=== PATIENT | female | born 1935 | race Caucasian/White ===

== ENCOUNTER 2017-11-03 07:23 | Emergency (ER) | payer MEDICARE, BC ==
--- NOTE | 2017-11-03 08:04 | UC ---
Lower Extremity/Ankle HPI - HPI Summary HPI Summary: Fall/trip over 's foot this morning. She landed on the right knee and has a deep wound. She is not able to bear wt very well. She is a diabetic on chronic steroids due to adrenal insufficiency. - History of Current Complaint Chief Complaint: UCLaceration Stated Complaint: FALL RIGHT KNEE LAC Time Seen by Provider: 11/03/17 07:37 Hx Obtained From: Patient, Family/[employer] ?: No Onset/Duration: Sudden Onset, Lasting Hours Severity Initially: Severe Severity Currently: Severe Pain Intensity: 5 Aggravating Factor(s): Standing, Ambulation Alleviating Factor(s): Rest, Elevation Able to Bear Weight: No - Allergies/Home Medications Allergies/Adverse Reactions: Allergies Allergy/AdvReac Type Severity Reaction Status Date / Time cetirizine [From Zyrtec] Allergy Swelling Verified 11/03/17 07:41 Of Face,Lips,& Throat levofloxacin [From Levaquin] Allergy Unknown Verified 11/03/17 07:41 Reaction Details Sulfa (Sulfonamide Allergy See Comment Verified 11/03/17 07:37 Antibiotics) tapentadol [From Nucynta] Allergy Unknown Verified 11/03/17 07:41 Reaction Details terfenadine [From Seldane] Allergy Unknown Verified 11/03/17 07:41 Reaction Details Home Medications: Home Medications Acetaminophen [Tylenol Arthritis] 650 mg PO DAILY PRN 11/03/17 [History Confirmed 11/03/17] Ascorbic Acid TAB* [Vitamin C TAB*] 500 mg PO DAILY 11/03/17 [History Confirmed 11/03/17] Atorvastatin* [Lipitor*] 10 mg PO DAILY 11/03/17 [History Confirmed 11/03/17] Calcium Carbonate [Calcium] 500 mg PO BID 11/03/17 [History Confirmed 11/03/17] Cholecalciferol TAB* [Vitamin D TAB*] 1,000 unit PO DAILY 11/03/17 [History Confirmed 11/03/17] Diltiazem XR EXTEND Releas(NF) [Cartia XR (NF)] 360 mg PO DAILY 11/03/17 [ History Confirmed 11/03/17] Enalapril TAB* [Vasotec TAB*] 20 mg PO BID 11/03/17 [History Confirmed 11/03/17] Ferrous Fumarate/Ascorbic Acid [Meliza-Sequels] 50 mg PO DAILY 11/03/17 [History Confirmed 11/03/17] Fexofenadine (NF) [Wendy 180 (NF)] 180 mg PO DAILY 11/03/17 [History Confirmed 11/03/17] Furosemide TAB* [Lasix TAB*] 40 mg PO BID 11/03/17 [History Confirmed 11/03/17] Hydrocortisone 10 mg PO DAILY 11/03/17 [History Confirmed 11/03/17] Insulin Detemir (NF) [Levemir (NF)] 18 unit SUBCUT DAILY 11/03/17 [History Confirmed 11/03/17] Mometasone/Formoter 200/5 MDI* [Dulera 200/5 MDI*] 1 puff INH BID 11/03/17 [ History Confirmed 11/03/17] Montelukast Sodium TAB* [Singulair TAB*] 10 mg PO DAILY 11/03/17 [History Confirmed 11/03/17] Multivitamin with Iron [Daily Multivitamin with Iron] 1 each PO DAILY 11/03/17 [ History Confirmed 11/03/17] [place]-3S/Dha/Epa/Fish Oil [Fish Oil 1,200 mg Softgel] 2 each PO DAILY 11/03/17 [ History Confirmed 11/03/17] Repaglinide TAB* [Prandin TAB*] 1 mg PO AC 11/03/17 [History Confirmed 11/03/17] Tiotropium CAP.INH* [Spiriva CAP.INH*] 1 cap.inh INH DAILY 11/03/17 [History Confirmed 11/03/17] cloNIDine TAB* [Catapres 0.1 MG TAB*] 0.2 mg PO TID 11/03/17 [History Confirmed 11/03/17] PMH/Surg Hx/FS Hx/Imm Hx Previously Healthy: No Endocrine History: Diabetes - Surgical History Surgical History: Yes Surgery Procedure, Year, and Place: back surgery. cataract. arthro knee. lumpectomy. carpal tunnel. tonsil/adenoids. gall bladder. lung biopsy. hammer toe and bone spur - Family History Known Family History: Positive: Other - no related family history for this laceration. - Social History Lives: With Family Alcohol Use: None Substance Use Type: None Smoking Status (MU): Never Smoked Tobacco Review of Systems Skin: Other - bleeding/laceration. Musculoskeletal: Arthralgia Is Patient Immunocompromised?: Yes All Other Systems Reviewed And Are Negative: Yes Physical Exam Triage Information Reviewed: Yes Appearance: Pain Distress, Obese Vital Signs: Initial Vital Signs Temp 98.4 F 11/03/17 07:34 Pulse 115 11/03/17 07:34 Resp 24 11/03/17 07:34 BP 180/92 11/03/17 07:34 Pulse Ox 98 11/03/17 07:34 Vital Signs Reviewed: Yes Eye Exam: Normal Eyes: Positive: Conjunctiva Clear ENT: Positive: Normal ENT inspection Neck: Positive: Supple, Nontender, No Lymphadenopathy Respiratory: Positive: Lungs clear, Normal breath sounds, No respiratory distress, No accessory muscle use. Negative: Respiratory distress, Decreased breath sounds, Accessory muscle use, Crackles, Rhonchi, Stridor Cardiovascular: Positive: RRR, No Murmur, Pulses Normal, Brisk Capillary Refill Abdomen Description: Positive: Soft. Negative: Distended, Guarding Musculoskeletal Exam: Other - she can flex right hip and lift off the bed. She has large hematoma, bruising and swelling over the iknee and proximal lower leg. There is a large laceration about 10cm. There is extensive bleeding and hematoma is evacuated with pressure and simple probing using sterile technique. Dispite milking the hematoma and bleeding and removing clots, there continues to be bleeding. about 250-500cc of blood is evacuated.There is obvious underlying facial lacerations as well. Neurological: Positive: Alert, Muscle Tone Normal. Negative: Fatigued Psychological: Positive: Normal Response To Family, Age Appropriate Behavior Skin: Positive: Other - see above. large laceration. Lower Extremity Course/Dx - Course Course Of Treatment: D/w Dr. Sotelo from [facility] who states that they have orthopedics and accept patient. This is a large deep laceration in a complicated older patient that is diabetic and on chornic hydrocortisone. There is continuous bleeding that I cannot visualize but I do appreciate deep tissue damage and lacerations of the facia as well. Underlying fracture may also be the source of this bleeding. Regardless, she may need more extensive closure and deep irrigation to at least prevent serious infection. - Differential Dx/Diagnosis Provider Diagnoses: complex laceration. facial tears. large hematoma. complex bleeding Discharge - Sign-Out/Discharge Documenting (check all that apply): Discharge - Discharge Plan Condition: Guarded Disposition: [facility] CARE FAC Referrals: Donte Mckinney MD [Primary Care Provider] - - Billing Disposition and Condition Condition: GUARDED Disposition: EMTALA
[2017-11-03] MEDS ORDERED: NS 0.9% 1000 ML* 1,000 ML IV ONE (08:13)
[2017-11-03 08:57] VITALS: BP 140/82
== END 2017-11-03 08:25 | disposition short-term general hospital (02) ==
LOC: UCCORT 07:23
DX: Z79.84 Long term (current) use of oral hypoglycemic drugs (principal); S81.011A Laceration without foreign body, right knee, initial encounter; S01.81XA Laceration without foreign body of other part of head, initial encounter; W01.0XXA Fall on same level from slipping, tripping and stumbling without subsequent striking against object, initial encounter; Y93.9 Activity, unspecified; Y92.009 Unspecified place in unspecified non-institutional (private) residence as the place of occurrence of the external cause; E11.9 Type 2 diabetes mellitus without complications; Z79.4 Long term (current) use of insulin; Z88.1 Allergy status to other antibiotic agents; Z88.5 Allergy status to narcotic agent; Z88.2 Allergy status to sulfonamides; Z88.8 Allergy status to other drugs, medicaments and biological substances
CPT/HCPCS: 99214; G0463

== ENCOUNTER 2019-07-13 10:57 | Emergency (ER) | payer MEDICARE, BC ==
--- OUTSIDE RECORDS SUMMARY | 2019-07-13 12:30 | XMS REPORT | Continuity of Care Document ---
:1935 External Reference #:[id number] Author Name Donte Mckinney (transmitted by agent of provider Arely Jefferson) Address [address] [place] [address] Problems Active Problems Provider Date Type 2 diabetes mellitus Donte Mckinney Onset: 10/05/2005 Social History Type Date Description Comments Sex Unknown Tobacco Use Start: Unknown Never Smoked Cigarettes ETOH Use Denies alcohol use Recreational Drug Use Never Used Drugs Tobacco Use Start: Unknown Patient has never smoked Allergies, Adverse Reactions, Alerts Active Allergies Reaction Severity Comments Date Seldene 06/01/2005 Levaquin 06/01/2005 Zyrtec 06/01/2005 sulfa NEPHRITIS Severe 02/05/2015 Medications Active Medications SIG Qnty Indications Ordering Date Provider Accu-Chek Soft-Clix test 4 times daily Donte Mckinney 02/14/2019 Lancets Miacalcin spray 1 spray 6ml Donte Mckinney 12/21/2018 200Unit/ML alternating nares Solution once daily Hydrocortisone 1 1/2 by mouth 225tabs E27.49 Donte Mckinney 01/03/2018 20mg morning every Tablets morning 1 by mouth every afternoon Humalog Kwikpen 5 units before 3units Donte Mckinney 01/03/2018 meals tapering if 100Unit/ML Solution ama sliding scale, Pen-Inject 151-200 1unit 201-250 2 units, 251-300 3units, 301-350 4 units, 351-400 Amlodipine Besylate 1 by mouth every 90tabs I11.9 Donte Mckinney 11/24/2017 day 10mg Tablets Triamcinolone 1 spray each 16.500gm Donte Mckinney 11/08/2017 Acetonide nostril twice 55mcg/Act daily Aerosol Pen Wesley 1/2" dx e11.65 as 100units Donte Mckinney 06/29/2017 29G X directed 3x a day 12mm Misc injections Diabetic Shoes With as directed hx Donte Mckinney 01/04/2017 Inserts foot surgeries edema feet and ankles. calluses on feet. Accu-Chek Beth Test Fout Times 1units Donte Mckinney 09/15/2016 Device Daily DX E11.65 Accu-Chek Beth Plus dx e11.65 test 4 300units Donte Mckinney 09/15/2016 times daily Strips Syrings 16 Lenght 14 units in in the 100units Alex Mckinneyl 07/07/2016 By 31 Gauge morning dx e11.65 Multivitamin Women Alex Mckinneyl 05/05/2016 50+ 50+ Tablets Calcium 500 + D Alex Mckinneyl 05/05/2016 309-261tt-Kqns Tablets Meliza-Sequels Alex Mckinneyl 05/05/2016 65-25mg Tablets ER Vitamin D3 High 1 by mouth every 90caps Alex Mckinneyl 05/05/2016 Potency day 1000Unit Capsules Vitamin C Plus Alex Mckinneyl 05/05/2016 Echinacea 500-100mg Tablets Wendy Allergy 1 PO qd prn 90tabs Faye Donte 05/05/2016 180mg Tablets Clonidine HCL 1 by mouth three 270tabs Alex Mckinneyl 10/09/2015 0.2mg times a day Tablets Levemir Flextouch taking 13 units in 3Mo Donte Mckinney 05/14/2015 the am and 16 100Unit/ML Solution units in the pm Pen-Inject Vasotec 1 by mouth twice a 180tabs Donte Mckinney 04/09/2015 20mg Tablets day Knee High Support as directed dx 1units Donte Mckinney 03/19/2015 Hose 250.00 459.81 20-30 compression Walker with wheels and [facility] Donte Mckinney 02/14/2013 seat dx 781.2 Tylenol 8 Hour as needed 100tabs M15.0 Donte Mckinney 10/11/2012 650mg Tablets ER Fish Oil bid Donte Mckinney 11/25/[address] [place] 1 by mouth every 90tabs Donte Mckinney 06/01/2005 10mg Tablets day Lipitor 1/2 PO qd 90tabs Donte Mckinney 06/01/2005 20mg Tablets Dulera 1 puff twice a day 3units Pradeeptaylor Donte 200-5mcg/Act Aerosol Azithromycin 1 tab on Mon, Wed Faye Donte 250mg and Fri Tablets Spiriva Respimat 2 puff daily 3units J44.9 Pradeeptaylor Donte 2.5mcg/Act Aerosol Torsemide in by mouth daily 90tabs Faye Donte 100mg Tablets Levalbuterol HCL four times a day 100units J20.9 Pradeeptaylor Donte dx pneumonia 0.63mg/3ML Nebulizer History Medications Amoxicillin/Clavulanate 1 by mouth 21tabs Kameron44.1 Donte Mckinney 05/15/2019 - Potassium three times a 06/12/2019 500-125mg Tablets day Albuterol Sulfate as directed up 30ml Kameron44.1 Donte Mckinney 05/15/2019 - 1.25mg/3ML Nebulizer to four times a 05/15/2019 day Albuterol Sulfate Inhale The 75units 0.9 Faye Donte 05/15/2019 - (2.5mg/3ML) 0.083% Contents Of One 06/20/2019 Nebulizer Vial Via Nebulizer Every 4 Hours as Needed Medications Administered in Office Medication SIG Qnty Indications Ordering Provider Date B-12 Injection Donte Mckinney 02/21/2019 Injection B-12 Injection Nurse 02/21/2019 Injection H1N1 Administration-Use Donte Mckinney 05/28/2009 Injection PPD Injection Donte Mckinney 06/01/2005 PPD Injection Donte Mckinney 12/17/2004 Immunizations CPT Code Status Date Vaccine Lot # [id number] Given 05/16/2019 Pneumovax Polyvalent Inj Im Q2035 Given 03/21/2019 Influenza Virus (Quadrivalent)Splitvirus 3 Years Of Age And Older Q2035 Given 03/21/2019 Influenza Virus (Quadrivalent)Splitvirus 3 [id number] Years Of Age And Older 82312 Given 03/21/2019 Influenza Virus Vaccine, Quadrivalent, Split, Preservative Free Q2035 Given 04/11/2018 Influenza Virus (Quadrivalent)Splitvirus 3 [id number] Years Of Age And Older Q2036 Given 03/23/2017 Flulaval Q2035 Given 03/23/2017 Influenza Virus (Quadrivalent)Splitvirus 3 Years Of Age And Older Q2037 Given 04/07/2016 Influenza Vaccine (Fluvirin) 3 Years Of Age Or [id number] Older 86091 Given 05/21/2015 Pneumococcal Conjugate Vaccine 13 Valent For [id number] Intramuscular Use Q2035 Given 03/19/2015 Influenza Virus (Quadrivalent)Splitvirus 3 [id number] Years Of Age And Older Q2037 Given 03/13/2014 Influenza Vaccine (Fluvirin) 3 Years Of Age Or Older Q2038 Given 04/04/2013 Influenza Vaccine (Fluzone) Administered Age 3 And Older 31419 Given 04/04/2013 Influenza Vaccine [id number] Q2037 Given 04/26/2012 Influenza Vaccine (Fluvirin) 3 Years Of Age Or [id number] Older Q2036 Given 04/15/2011 Flulaval [id number] 40347 Given 06/30/2010 Zostavax [id number] 26854 Given 04/15/2010 Influenza Vaccine [id number] 78954 Given 12/13/2009 Pneumovax Polyvalent Inj Im [id number] 73683 Given 04/23/2009 Influenza Vaccine 24780 Given 04/23/2009 Influenza Vaccine [id number] 02242 Given 04/17/2008 Influenza Vaccine [id number] 68271 Given 04/12/2007 Influenza Vaccine [id number] 68813 Given 04/16/2006 Influenza Vaccine 47792 Given 04/16/2006 Influenza Vaccine [id number] 63074 Given 05/05/2005 Influenza Vaccine [id number] 82922 Given 05/05/2005 Influenza Vaccine 75446 Given 01/11/2005 Tetanus And Diptheria Toxiods [id number] 00151 Given 12/30/2004 [place] [address] Given 07/19/1991 Tetanus And Diptheria Toxiods Vital Signs Date Vital Result Comment 06/20/2019 11:18am BP Systolic 185 mmHg BP Diastolic 90 mmHg Heart Rate 128 /min Respiratory Rate 22 /min Height 58 inches 4'10" O2 % BldC Oximetry 90 % 06/12/2019 11:54am BP Systolic 148 mmHg BP Diastolic 90 mmHg Heart Rate 95 /min Respiratory Rate 22 /min Weight 180.00 lb Results Test Acquired Date Facility Test Result H/L Range Note General Health 05/15/2019 [facility] TSH 0.30 mIU/L Low 0.40-4.50 1 Panel [facility] [address] [place], [place] [id number] [phone] T4, Free 1.4 ng/dL Normal 0.8-1.8 CBC (Includes 05/15/2019 [facility] White 14.9 High 3.8-10.8 Diff/PLT) [address] Blood Cell Thousand/[place] [address] Count [phone] Red Blood Cell Count 3.48 Million/uL Low 3.80-5.10 Hemoglobin 10.3 g/dL Low 11.7-15.5 Hematocrit 30.4 % Low 35.0-45.0 MCV 87.4 fL Normal 80.0-100.0 MCH 29.6 pg Normal 27.0-33.0 MCHC 33.9 g/dL Normal 32.0-36.0 RDW 14.2 % Normal 11.0-15.0 Platelet Count 390 Thousand/uL Normal 140-400 MPV 9.2 fL Normal 7.5-12.5 Absolute Neutrophils 33103 cells/uL High 2027-9347 Absolute Lymphocytes 745 cells/uL Low 850-3900 Absolute Monocytes 313 cells/uL Normal 200-950 Absolute Eosinophils 0 cells/uL Low 15-500 Absolute Basophils 30 cells/uL Normal 0-200 Neutrophils 92.7 % High 38-80 Lymphocytes 5.0 % Low 15-49 Monocytes 2.1 % Normal 0-13 Eosinophils 0.0 % Normal 0-8 Basophils 0.2 % Normal 0-2 Comprehensive Metabolic 05/15/2019 [facility] Glucose 198 mg/dL High 65-139 2 Panel [address] [place], [place] [id number] [phone] Urea Nitrogen (BUN) 72 mg/dL High 7-25 Creatinine 1.83 mg/dL High 0.60-0.88 3 eGFR Non-Afr. Austrian 25 mL/min/1.73m2 Low > Or = 60 eGFR 29 mL/min/1.73m2 Low > Or = 60 BUN/Creatinine Ratio 39 (calc) High 6-22 Sodium 142 mmol/L Normal 135-146 Potassium 4.2 mmol/L Normal 3.5-5.3 Chloride 104 mmol/L Normal 98-110 Carbon Dioxide 27 mmol/L Normal 20-32 Calcium 8.9 mg/dL Normal 8.6-10.4 Protein, Total 5.6 g/dL Low 6.1-8.1 Albumin 3.2 g/dL Low 3.6-5.1 Globulin 2.4 g/dL(calc) Normal 1.9-3.7 Albumin/Globulin Ratio 1.3 (calc) Normal 1.0-2.5 Bilirubin, Total 0.3 mg/dL Normal 0.2-1.2 Alkaline Phosphatase 91 U/L Normal 33-130 Ast 30 U/L Normal 10-35 Alt 42 U/L High 6-29 Laboratory test 05/15/2019 [facility] Cortisone, Serum 0.8 g/dL 4 finding [address] [place] [address] [phone] Enhanced PDF Report [id number] SEE IMAGE CMP W/GFR 04/11/2019 [facility] Sodium 140 mmol/L 135-146 5 [address] [place], [place] [address] [phone] Potassium 3.7 mmol/L 3.5-5.3 Chloride 102 mmol/L 98-110 Carbon Dioxide 28 mmol/L 20-32 6 Calcium 9.8 mg/dL 8.6-10.4 Alkaline Phosphatase 63 U/L 33-130 Ast 14 U/L 10-35 Alt 23 U/L 6-29 Bilirubin,Total 0.5 mg/dL 0.2-1.2 Glucose 157 mg/dL High 65-99 7 Urea Nitrogen (BUN) 69 mg/dL High 7-25 Creatinine 1.89 mg/dL High 0.60-0.88 8 BUN/Creatinine Ratio 36.3 High 6-22 Protein,Total 6.5 g/dL 6.1-8.1 Albumin 3.9 g/dL 3.6-5.1 Globulin,Calculated 2.6 g/dL 1.9-3.7 A/G Ratio 1.5 1.0-2.5 Egfr Non-Afr. Austrian 24 ML/MIN/1.73M2 Low > Or = 60 Egfr 28 ML/MIN/1.73M2 Low > Or = 60 Sodium 140 mmol/L 135-146 Potassium 3.7 mmol/L 3.5-5.3 Chloride 102 mmol/L 98-110 Carbon Dioxide 28 mmol/L 20-32 9 Calcium 9.8 mg/dL 8.6-10.4 Alkaline Phosphatase 63 U/L 33-130 Ast 14 U/L 10-35 Alt 23 U/L 6-29 Bilirubin,Total 0.5 mg/dL 0.2-1.2 Glucose 157 mg/dL High 65-99 10 Urea Nitrogen (BUN) 69 mg/dL High 7-25 Creatinine 1.89 mg/dL High 0.60-0.88 11 BUN/Creatinine Ratio 36.3 High 6-22 Protein,Total 6.5 g/dL 6.1-8.1 Albumin 3.9 g/dL 3.6-5.1 Globulin,Calculated 2.6 g/dL 1.9-3.7 A/G Ratio 1.5 1.0-2.5 Egfr Non-Afr. Austrian 24 ML/MIN/1.73M2 Low > Or = 60 Egfr 28 ML/MIN/1.73M2 Low > Or = 60 CBC W/ Diff & PLT 04/11/2019 [facility] WBC 11.3 thous/L High 3.8 -10.8 [address] [place] [address] [phone] RBC 4.03 mill/L 3.80-5.10 Hemoglobin 11.6 g/dL Low 11.7-15.5 Hematocrit 35.3 % 35.0-45.0 MCV 87.6 FL 80.0-100.0 MCH 28.8 pg 27.0-33.0 MCHC 32.9 g/dL 32.0-36.0 RDW 14.3 % 11.0-15.0 Platelet Count 406 thous/L High 140-400 MPV 8.7 FL 7.5-12.5 Neutrophils,Absolute 6850 cells/L 8746-1782 Bands,Absolute PENDING Metamyelocytes,Absolute PENDING Myelocytes,Absolute PENDING Promyelocytes,Absolute PENDING Lymphocytes,Absolute 3640 cells/L 850-3900 Monocytes,Absolute 630 cells/L 200-950 Eosinophils,Absolute 60 cells/L 15-500 Basophils,Absolute 60 cells/L 0-200 Blast Cells,Absolute PENDING Nucleated RBC,Absolute PENDING Total Neutrophils,% 61.2 % 40-75 Bands,% PENDING Metamyelocytes,% PENDING Myelocytes,% PENDING Promyelocytes,% PENDING Total Lymphocytes,% 32.2 % 12-47 Reactive Lymphocytes PENDING Monocytes,% 5.6 % 4-12 Eosinophils,% 0.5 % 0-4 Basophils,% 0.5 % 0-1 12 Blasts,% PENDING Nucleated RBC PENDING Comment PENDING WBC 11.3 thous/L High 3.8-10.8 RBC 4.03 mill/L 3.80-5.10 Hemoglobin 11.6 g/dL Low 11.7-15.5 Hematocrit 35.3 % 35.0-45.0 MCV 87.6 FL 80.0-100.0 MCH 28.8 pg 27.0-33.0 MCHC 32.9 g/dL 32.0-36.0 RDW 14.3 % 11.0-15.0 Platelet Count 406 thous/L High 140-400 MPV 8.7 FL 7.5-12.5 Neutrophils,Absolute 6850 cells/L 2271-0305 Lymphocytes,Absolute 3640 cells/L 850-3900 Monocytes,Absolute 630 cells/L 200-950 Eosinophils,Absolute 60 cells/L 15-500 Basophils,Absolute 60 cells/L 0-200 Total Neutrophils,% 61.2 % 40-75 Total Lymphocytes,% 32.2 % 12-47 Monocytes,% 5.6 % 4-12 Eosinophils,% 0.5 % 0-4 Basophils,% 0.5 % 0-1 13 Lipid Panel 04/11/2019 [facility] Cholesterol 173 mg/dL <199 [address] [place] [address] [phone] HDL Cholesterol 56 mg/dL >50 Cholesterol/HDL Ratio 3.1 CALC <5.0 LDL Chol,Calculated 87 mg/dL 0-100 14 Triglycerides 204 mg/dL High <150 15 Non-HDL Cholesterol 116 mg/dL <130 16 Cholesterol 173 mg/dL <199 HDL Cholesterol 56 mg/dL >50 Cholesterol/HDL Ratio 3.1 CALC <5.0 LDL Chol,Calculated 87 mg/dL 0-100 17 Triglycerides 204 mg/dL High <150 18 Non-HDL Cholesterol 116 mg/dL <130 19 Laboratory test finding 04/11/2019 [facility] Cortisol,A.M. PENDING [address] [place], [place] [id number] [phone] Vitamin D,25-Hydroxy,Total,Immunoassay 32 NG/ML 30-100 20 Hemoglobin A1c 6.6 % High 0-5.6 21 TSH & T4,Free 04/11/2019 [facility] TSH 0.31 mIU/L Low 0.40-4.50 22 [address] [place], [place] [id number] [phone] T4,Free 1.4 ng/dL 0.8-1.8 Laboratory test finding 04/11/2019 [facility] TSH 0.31 mIU/L Low 0.40-4.50 23 [address] [place], [place] [address] [phone] T4,Free 1.4 ng/dL 0.8-1.8 Clinical PDF Report [id number] SEE IMAGE Hemoglobin A1c 6.6 % High 0-5.6 24 TSH 0.31 mIU/L Low 0.40-4.50 25 T4,Free 1.4 ng/dL 0.8-1.8 Vitamin D,25-Hydroxy,Total,Immunoassay 32 NG/ML 30-100 26 Cortisol,A.M. 3.5 g/dL Low 27 1 FASTING:NO FASTING: NO 2 Non-fasting reference interval For someone without known diabetes, a glucose value >125 mg/dL indicates that they may have diabetes and this should be confirmed with a follow-up test. 3 For patients >49 years of age, the reference limit for Creatinine is approximately 13% higher for people identified as -Austrian. 4 Reference Range: AM: 1.2-3.5 PM: 0.6-2.8 This test was developed and its analytical performance characteristics have been determined by [facility]. It has not been cleared or approved by FDA. This assay has been validated pursuant to the CLIA regulations and is used for clinical purposes. 5 FASTING 6 Reference range for high altitude clients: 18-30 mmol/L 7 GLUCOSE REFERENCE RANGE BASED ON FASTING SPECIMEN. 8 The upper reference limit for Creatinine is approximately 13% higher for people identified as -Austrian. 9 Reference range for high altitude clients: 18-30 mmol/L 10 GLUCOSE REFERENCE RANGE BASED ON FASTING SPECIMEN. 11 The upper reference limit for Creatinine is approximately 13% higher for people identified as -Austrian. 12 Relative blood cell counts (%) should be compared with absolute cell counts (cells/mcL). Relative counts may not be clinically meaningful if the absolute count of one or more cell type is decreased. Reference ranges for relative cell counts derived from: A Manual of Laboratory and Diagnostics Tests, 9th Ed, [employer] Vance [employer] Huang, 2015. Pediatric Reference Intervals, 7th Ed, [employer], 2011. 13 Relative blood cell counts (%) should be compared with absolute cell counts (cells/mcL). Relative counts may not be clinically meaningful if the absolute count of one or more cell type is decreased. Reference ranges for relative cell counts derived from: A Manual of Laboratory and Diagnostics Tests, 9th Ed, [employer], 2015. Pediatric Reference Intervals, 7th Ed, [employer], 2011. 14 LDL-C is now calculated using the Danny-Stallworth calculation, which is a validated novel method providing better accuracy than the Friedewald equation in the estimation of LDL-C. Danny SS et al.MARIAELENA.2013;310(19):2878-6197 Desirable range <100 mg/dL for primary prevention; <70 mg/dL for patients with CHD or diabetic patients with >or= 2 CHD risk factors. 15 If a non-fasting specimen was collected, consider repeat triglyceride testing on a fasting specimen if clinically indicated. Shakira et al.J of Clin.Lipidol.2015;9:129-169. 16 For patients with diabetes plus 1 major ASCVD risk factor, treating to a non-HDL-C goal of <100 mg/dL (LDL-C of <70 mg/ dL) is considered a therapeutic option. 17 LDL-C is now calculated using the Danny-Stallworth calculation, which is a validated novel method providing better accuracy than the Friedewald equation in the estimation of LDL-C. Danny SS et al.MARIAELENA.2013;310(19):7984-7253 Desirable range <100 mg/dL for primary prevention; <70 mg/dL for patients with CHD or diabetic patients with >or= 2 CHD risk factors. 18 If a non-fasting specimen was collected, consider repeat triglyceride testing on a fasting specimen if clinically indicated. Shakira et al.J of Clin.Lipidol.2015;9:129-169. 19 For patients with diabetes plus 1 major ASCVD risk factor, treating to a non-HDL-C goal of <100 mg/dL (LDL-C of <70 mg/ dL) is considered a therapeutic option. 20 Vitamin D Status 25-OH Vitamin D: Deficiency: <20 ng/mL Insufficiency: 20-29 ng/mL Optimal: > or = 30 ng/mL For 25-OH Vitamin D testing on patients on D2-supplementation and patients for whom quantitation of D2 and D3 fractions is required, the [facility] 25-OH Vit D, (D2,D3),LC/MS/MS is recommended: Order code 73038 (patients >2 yrs). 21 For someone without known diabetes, a hemoglobin A1C value of 6.5% or greater indicates that they may have diabetes and this should be confirmed with a follow-up test. For someone with known diabetes, a value <7% indicates that their diabetes is well controlled and a value greater than or equal to 7% indicates suboptimal control. A1C targets should be individualized based on duration of diabetes, age, comorbid conditions, and other considerations. Currently, no consensus exists for use of hemoglobin A1C for diagnosis of diabetes for children. FOR DIAGNOSTIC PURPOSES: A1C VALUE(% OF TOTAL HEMOGLOBIN) INTERPRETATION < 5.7 CONSISTENT WITH THE ABSENCE OF DIABETES 5.7 - 6.4 CONSISTENT WITH INCREASED RISK OF DIABETES > OR = 6.5 CONSISTENT WITH DIABETES FOR MONITORING PURPOSES (ADA GUIDELINNES): A1C VALUE(% OF TOTAL HEMOGLOBIN) INTERPRETATION < 6.5 ACHIEVES STRINGENT GLYCEMIC GOAL < 7.0 ACHIEVES GENERAL GLYCEMIC GOAL(NON- ADULTS) < 8.0 ACHIEVES LESS STRINGENT GLYCEMIC GOAL 22 REFERENCE RANGES BELOW ARE APPLICABLE TO FEMALES FIRST TRIMESTER - 0.26 - 2.66 mIU/L SECOND TRIMESTER - 0.55 - 2.73 mIU/L THIRD TRIMESTER - 0.43 - 2.91 mIU/L 23 REFERENCE RANGES BELOW ARE APPLICABLE TO FEMALES FIRST TRIMESTER - 0.26 - 2.66 mIU/L SECOND TRIMESTER - 0.55 - 2.73 mIU/L THIRD TRIMESTER - 0.43 - 2.91 mIU/L 24 For someone without known diabetes, a hemoglobin A1C value of 6.5% or greater indicates that they may have diabetes and this should be confirmed with a follow-up test. For someone with known diabetes, a value <7% indicates that their diabetes is well controlled and a value greater than or equal to 7% indicates suboptimal control. A1C targets should be individualized based on duration of diabetes, age, comorbid conditions, and other considerations. Currently, no consensus exists for use of hemoglobin A1C for diagnosis of diabetes for children. FOR DIAGNOSTIC PURPOSES: A1C VALUE(% OF TOTAL HEMOGLOBIN) INTERPRETATION < 5.7 CONSISTENT WITH THE ABSENCE OF DIABETES 5.7 - 6.4 CONSISTENT WITH INCREASED RISK OF DIABETES > OR = 6.5 CONSISTENT WITH DIABETES FOR MONITORING PURPOSES (ADA GUIDELINNES): A1C VALUE(% OF TOTAL HEMOGLOBIN) INTERPRETATION < 6.5 ACHIEVES STRINGENT GLYCEMIC GOAL < 7.0 ACHIEVES GENERAL GLYCEMIC GOAL(NON- ADULTS) < 8.0 ACHIEVES LESS STRINGENT GLYCEMIC GOAL 25 REFERENCE RANGES BELOW ARE APPLICABLE TO FEMALES FIRST TRIMESTER - 0.26 - 2.66 mIU/L SECOND TRIMESTER - 0.55 - 2.73 mIU/L THIRD TRIMESTER - 0.43 - 2.91 mIU/L 26 Vitamin D Status 25-OH Vitamin D: Deficiency: <20 ng/mL Insufficiency: 20-29 ng/mL Optimal: > or = 30 ng/mL For 25-OH Vitamin D testing on patients on D2-supplementation and patients for whom quantitation of D2 and D3 fractions is required, the [facility] 25-OH Vit D, (D2,D3),LC/MS/MS is recommended: Order code 61719 (patients >2 yrs). 27 REFERENCE RANGE AM: 1-3 DAYS OLD: PREMATURE INFANTS (31-35 WEEKS): < OR = 15.0 MCG/DL TERM INFANTS: < OR = 14.0 MCG/DL 4 DAYS-1 MONTH: NOT ESTABLISHED 1 MONTH-11 MONTHS: 3.0-23.0 MCG/DL 1 YEAR-17 YEARS: 3.0-25.0 MCG/DL 18 YEARS OR OLDER: 4.0-22.0 MCG/DL Procedures Date Code Description Status 06/13/2019 69292 Therapeutic,Prophylactic Intramuscular Inj Completed 05/30/2019 38393 Therapeutic,Prophylactic Intramuscular Inj Completed 04/18/2019 74418 Therapeutic,Prophylactic Intramuscular Inj Completed 04/18/2019 97098 Non-Invcorrotid/Comp /Bilat Study Completed 04/17/2019 82319 Echocardiography Completed 04/11/2019 63447 Spirometry Graphic Record/Max Voluntary Vent Completed 04/11/2019 18438 EKG-Tracing & Report Completed 04/10/2019 10521 EKG-Tracing & Report Completed 04/04/2019 83443 Therapeutic,Prophylactic Intramuscular Inj Completed 03/21/2019 96570 Therapeutic,Prophylactic Intramuscular Inj Completed 02/07/2019 62863 Therapeutic,Prophylactic Intramuscular Inj Completed 01/24/2019 45871 Therapeutic,Prophylactic Intramuscular Inj Completed 01/10/2019 26063 Therapeutic,Prophylactic Intramuscular Inj Completed 03/11/2017 [id number] Bone Mineral Density Test Completed 07/22/2015 [id number] Mammogram Completed 05/13/2007 [id number] Colonoscopy Completed Medical Devices Description No Information Available Encounters Type Date Location Provider Dx Diagnosis Office Visit 06/20/2019 11:30a Main Office Donte Mckinney I11.9 Hypertensive heart disease without heart failure E66.09 Other obesity due to excess calories 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 E78.5 Hyperlipidemia, unspecified N18.9 Chronic kidney disease, unspecified E11.65 Type 2 diabetes mellitus with hyperglycemia E03.9 Hypothyroidism, unspecified M15.9 Polyosteoarthritis, unspecified E55.9 Vitamin D deficiency, unspecified D64.9 Anemia, unspecified J45.909 Unspecified asthma, uncomplicated Office Visit 06/12/2019 12:00p Main Office Donte Mckinney M15.9 Polyosteoarthritis, unspecified J44.1 Chronic obstructive pulmonary disease w (acute) exacerbation I65.23 Occlusion and stenosis of bilateral carotid arteries E78.5 Hyperlipidemia, unspecified 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 Other obesity due to excess calories I11.9 Hypertensive heart disease without heart failure J44.9 Chronic obstructive pulmonary disease, unspecified M54.5 Low back pain J44.0 Chr obstructive pulmon disease with (acute) lower resp infct Office Visit 05/25/2019 11:30a Main Office Donte Mckinney R06.02 Shortness of breath J44.1 Chronic obstructive pulmonary disease w (acute) exacerbation I65.23 Occlusion and stenosis of bilateral carotid arteries T78.40xD Allergy, unspecified, subsequent encounter E78.5 Hyperlipidemia, unspecified 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 Other obesity due to excess calories I11.9 Hypertensive heart disease without heart failure E11.65 Type 2 diabetes mellitus with hyperglycemia E03.9 Hypothyroidism, unspecified J40 Bronchitis, not specified as acute or chronic J45.30 Mild persistent asthma, uncomplicated Office Visit 05/15/2019 11:30a Main Office Donte Mckinney J44.1 Chronic obstructive pulmonary disease w (acute) exacerbation T78.40xD Allergy, unspecified, subsequent encounter I65.23 Occlusion and stenosis of bilateral carotid arteries E78.2 Mixed hyperlipidemia R06.02 Shortness of breath 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 Other obesity due to excess calories I11.9 Hypertensive heart disease without heart failure Office Visit 04/24/2019 10:15a Main Office Donte Mckinney R26.89 Other abnormalities of gait and mobility T78.40xD Allergy, unspecified, subsequent encounter I65.23 Occlusion and stenosis of bilateral carotid arteries I34.0 Nonrheumatic mitral (valve) insufficiency E78.2 Mixed hyperlipidemia R06.02 Shortness of breath J44.9 Chronic obstructive pulmonary disease, unspecified J44.1 Chronic obstructive pulmonary disease w (acute) exacerbation Office Visit 02/14/2019 11:15a Main Office Donte Mckinney R42 Dizziness and giddiness T78.40xD Allergy, unspecified, subsequent encounter E11.65 Type 2 diabetes mellitus with hyperglycemia E03.9 Hypothyroidism, unspecified J44.9 Chronic obstructive pulmonary disease, unspecified J40 Bronchitis, not specified as acute or chronic 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 Other obesity due to excess calories I11.9 Hypertensive heart disease without heart failure J45.30 Mild persistent asthma, uncomplicated M54.5 Low back pain J44.0 Chr obstructive pulmon disease with (acute) lower resp infct I73.9 Peripheral vascular disease, unspecified I65.23 Occlusion and stenosis of bilateral carotid arteries R26.89 Other abnormalities of gait and mobility Office Visit 01/17/2019 11:00a Main Office Donte Mckinney E11.65 Type 2 diabetes mellitus with hyperglycemia E03.9 Hypothyroidism, unspecified T78.40xD Allergy, unspecified, subsequent encounter J44.9 Chronic obstructive pulmonary disease, unspecified J40 Bronchitis, not specified as acute or chronic 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 Other obesity due to excess calories I11.9 Hypertensive heart disease without heart failure Assessments Date Code Description Provider 06/20/2019 I11.9 Hypertensive heart disease without heart failure Gauss, Donte 06/20/2019 E66.09 Other obesity due to excess calories Gauss, Donte 06/20/2019 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 Gauss, Donte 06/20/2019 E78.5 Hyperlipidemia, unspecified Gauss, Donte 06/20/2019 N18.9 Chronic kidney disease, unspecified Gauss, Donte 06/20/2019 E11.65 Type 2 diabetes mellitus with hyperglycemia Gauss, Donte 06/20/2019 E03.9 Hypothyroidism, unspecified Gauss, [facility] 06/20/2019 M15.9 Polyosteoarthritis, unspecified Gauss, [facility] 06/20/2019 E55.9 Vitamin D deficiency, unspecified Gauss, [facility] 06/20/2019 D64.9 Anemia, unspecified Gauss, [facility] 06/20/2019 J45.909 Unspecified asthma, uncomplicated Gauss, [facility] 06/13/2019 T78.40xD Allergy, unspecified, subsequent encounter Gauss, Donte 06/12/2019 M15.9 Polyosteoarthritis, unspecified Gauss, [facility] 06/12/2019 J44.1 Chronic obstructive pulmonary disease with (acute) Gauss, Donte exacerbation 06/12/2019 I65.23 Occlusion and stenosis of bilateral carotid arteries Gauss , Donte 06/12/2019 E78.5 Hyperlipidemia, unspecified Gauss, Donte 06/12/2019 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 Gauss, [facility] 06/12/2019 E66.09 Other obesity due to excess calories Gauss, Donte 06/12/2019 I11.9 Hypertensive heart disease without heart failure Gauss, Donte 06/12/2019 J44.9 Chronic obstructive pulmonary disease, unspecified Gauss, Donte 06/12/2019 M54.5 Low back pain Gauss, [facility] 06/12/2019 J44.0 Chronic obstructive pulmonary disease with acute Gauss, Donte lower respiratory infection 05/30/2019 T78.40xD Allergy, unspecified, subsequent encounter Gauss, Donte 05/25/2019 R06.02 Shortness of breath Gauss, Donte 05/25/2019 J44.1 Chronic obstructive pulmonary disease with (acute) Gauss, Donte exacerbation 05/25/2019 I65.23 Occlusion and stenosis of bilateral carotid arteries Gauss , [facility] 05/25/2019 T78.40xD Allergy, unspecified, subsequent encounter [facility], [facility] 05/25/2019 E78.5 Hyperlipidemia, unspecified Gauss, [facility] 05/25/2019 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 Gauss, [facility] 05/25/2019 E66.09 Other obesity due to excess calories [facility], [facility] 05/25/2019 I11.9 Hypertensive heart disease without heart failure Gauss, [facility] 05/25/2019 E11.65 Type 2 diabetes mellitus with hyperglycemia [facility], [facility] 05/25/2019 E03.9 Hypothyroidism, unspecified [facility], [facility] 05/25/2019 J40 Bronchitis, not specified as acute or chronic [facility], [facility] 05/25/2019 J45.30 Mild persistent asthma, uncomplicated [facility], [facility] 05/16/2019 T78.40xD Allergy, unspecified, subsequent encounter [facility] 05/15/2019 J44.1 Chronic obstructive pulmonary disease with (acute) [facility], [facility] exacerbation 05/15/2019 T78.40xD Allergy, unspecified, [facility]2019 I65.23 Occlusion and stenosis of bilateral carotid arteries [facility] , [facility] 05/15/2019 E78.2 Mixed hyperlipidemia [facility], [facility] 05/15/2019 R06.02 Shortness of breath [facility], [facility] 05/15/2019 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 Neuss, [facility] 05/15/2019 E66.09 Other obesity due to excess calories [facility], [facility] 05/15/2019 I11.9 Hypertensive heart disease without heart failure Gauss, [facility] 04/24/2019 R26.89 Other abnormalities of gait and mobility Gauss, [facility] 04/24/2019 T78.40xD Allergy, unspecified, subsequent encounter [facility] 04/24/2019 I65.23 Occlusion and stenosis of bilateral carotid arteries [facility] 04/24/2019 I34.0 Nonrheumatic mitral (valve) insufficiency Gauss, [facility] 04/24/2019 E78.2 Mixed hyperlipidemia Gauss, [facility] 04/24/2019 R06.02 Shortness of breath Gauss, [facility] 04/24/2019 J44.9 Chronic obstructive pulmonary disease, unspecified Gauss, [facility] 04/24/2019 J44.1 Chronic obstructive pulmonary disease with (acute) Gauss, Donte exacerbation 04/18/2019 T78.40xD Allergy, unspecified, subsequent encounter Gauss, [facility] 04/18/2019 I65.23 Occlusion and stenosis of bilateral carotid arteries Gauss , [facility] 04/17/2019 I34.0 Nonrheumatic mitral (valve) insufficiency Gauss, [facility] 04/11/2019 E78.2 Mixed hyperlipidemia Gauss, [facility] 04/11/2019 R06.02 Shortness of breath Gauss, [facility] 04/11/2019 J44.9 Chronic obstructive pulmonary disease, unspecified Gauss, [facility] 04/11/2019 R05 Cough Gauss, [facility] 04/10/2019 E78.2 Mixed hyperlipidemia Gauss, [facility] 04/04/2019 T78.40xD Allergy, unspecified, subsequent encounter Gauss, [facility] 03/21/2019 Z23 Encounter for immunization [facility], [facility] 03/21/2019 T78.40xD Allergy, unspecified, subsequent encounter Gauss, [facility] 02/21/2019 E11.65 Type 2 diabetes mellitus with hyperglycemia [facility], [facility] 02/14/2019 R42 Dizziness and giddiness [facility], [facility] 02/14/2019 T78.40xD Allergy, unspecified, subsequent encounter [facility], [facility] 02/14/2019 E11.65 Type 2 diabetes mellitus with hyperglycemia [facility], [facility] 02/14/2019 E03.9 Hypothyroidism, unspecified Gauss, [facility] 02/14/2019 J44.9 Chronic obstructive pulmonary disease, unspecified Gauss, [facility] 02/14/2019 J40 Bronchitis, not specified as acute or chronic Gauss, [facility] 02/14/2019 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 Neuss, [facility] 02/14/2019 E66.09 Other obesity due to excess calories Gauss, [facility] 02/14/2019 I11.9 Hypertensive heart disease without heart failure Gauss, [facility] 02/14/2019 J45.30 Mild persistent asthma, uncomplicated Gauss, [facility] 02/14/2019 M54.5 Low back pain Gauss, [facility] 02/14/2019 J44.0 Chronic obstructive pulmonary disease with acute Donte Mckinney lower respiratory infection 02/14/2019 I73.9 Peripheral vascular disease, unspecified Faye, Donte 02/14/2019 I65.23 Occlusion and stenosis of bilateral carotid arteries Alex Mckinneyl 02/14/2019 R26.89 Other abnormalities of gait and mobility Faye, Donte 02/07/2019 T78.40xD Allergy, unspecified, subsequent encounter Gataylor, Donte 01/24/2019 T78.40xD Allergy, unspecified, subsequent encounter Gataylor, Donte 01/17/2019 E11.65 Type 2 diabetes mellitus with hyperglycemia Alex Mckinneyl 01/17/2019 E03.9 Hypothyroidism, unspecified Faye, Donte 01/17/2019 T78.40xD Allergy, unspecified, subsequent encounter Alex Mckinneyl 01/17/2019 J44.9 Chronic obstructive pulmonary disease, unspecified Faye, Donte 01/17/2019 J40 Bronchitis, not specified as acute or chronic Faye Donte 01/17/2019 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 Alex Mckinneyl 01/17/2019 E66.09 Other obesity due to excess calories Alex Mckinneyl 01/17/2019 I11.9 Hypertensive heart disease without heart failure Alex Mckinneyl 01/10/2019 T78.40xD Allergy, unspecified, subsequent encounter Donte Mckinney Plan of Treatment Future Appointment(s):07/26/2019 9:15 am - Nurse at Main Ngordn5107/20/2019 11: 15 am - Donte Mckinney at Main Yobvgh4107/17/2019 8:00 am - Nurse at Main Office Functional Status Description No Information Available Mental Status Description No Information Available Referrals Refer to Dr Reason for Referral Status Appt Date Servando Disla MD Created [address] [place] [address] [phone] [facility] Sent [address] [place] [address] [phone] Servando Disla MD Created [address] [place] [address] [phone] Denver Hudson MD Created [address] [place], [place] [id number] [phone] Marcello Lino M.D. [facility] Closed 02/27/[address] [place] [id number] [phone] Servando Disla MD Closed [address] [place] [address] [phone]
--- OUTSIDE RECORDS SUMMARY | 2019-07-13 12:30 | XMS REPORT | Continuity of Care Document ---
:1935 External Reference #:[id number] Author Name Donte Mckinney (transmitted by agent of provider Arely Jefferson) Address [address] [place] [address] Problems Active Problems Provider Date Type 2 [...] Acetonide nostril twice 55mcg/Act daily Aerosol Pen [place] 1/2" dx e11.65 as 100units Donte Mckinney [...] Calcium 500 + D Alex Mckinneyl 05/05/2016 [id number] Tablets Meliza-Sequels Aelx Mckinneyl 05/05/2016 65-25mg Tablets ER Vitamin D3 [...] 459.81 20-30 compression [facility] Donte Mckinney 02/14/2013 seat dx 781.2 [...] Spiriva Respimat 2 puff daily 3units J44.9 Pradeeptaylro Donte 2.5mcg/Act Aerosol Torsemide in by mouth [...] CPT Code Status Date Vaccine Lot # [id number] Given 05/16/2019 Pneumovax Polyvalent Inj Im Q2035 Given 03/21/2019 Influenza Virus (Quadrivalent)Splitvirus 3 Years Of Age And Older Q2035 Given 03/21/2019 Influenza Virus (Quadrivalent)Splitvirus 3 [id number] Years Of Age And Older 98014 Given 03/21/2019 Influenza Virus Vaccine, Quadrivalent, Split, Preservative Free Q2035 Given 04/11/2018 Influenza Virus (Quadrivalent)Splitvirus 3 [id number] Years Of Age And Older Q2036 Given 03/23/2017 Flulaval Q2035 Given 03/23/2017 Influenza Virus (Quadrivalent)Splitvirus 3 Years Of Age And Older Q2037 Given 04/07/2016 Influenza Vaccine (Fluvirin) 3 Years Of Age Or [id number] Older 89517 Given 05/21/2015 Pneumococcal Conjugate Vaccine 13 Valent For [id number] Intramuscular Use Q2035 Given 03/19/2015 Influenza Virus (Quadrivalent)Splitvirus 3 [id number] Years Of Age And Older Q2037 Given 03/13/2014 Influenza Vaccine (Fluvirin) 3 Years Of Age Or Older Q2038 Given 04/04/2013 Influenza Vaccine (Fluzone) Administered Age 3 And Older 09031 Given 04/04/2013 Influenza Vaccine [id number] Q2037 Given 04/26/2012 Influenza Vaccine (Fluvirin) 1 Years Of Age Or [id number] Older Q2036 Given 04/15/2011 Flulaval [id number] 91671 Given 06/30/2010 Zostavax [id number] 86197 Given 04/15/2010 Influenza Vaccine [id number] 71895 Given 12/13/2009 Pneumovax Polyvalent Inj Im [id number] 92586 Given 04/23/2009 Influenza Vaccine 43093 Given 04/23/2009 Influenza Vaccine [id number] 05367 Given 04/17/2008 Influenza Vaccine 54657 89795 Given 04/12/2007 Influenza Vaccine [id number] 05509 Given 04/16/2006 Influenza Vaccine 61976 Given 04/16/2006 Influenza Vaccine 88181 05500 Given 05/05/2005 Influenza Vaccine [id number] 35320 Given 05/05/2005 Influenza Vaccine 32472 Given 01/11/2005 Tetanus And Diptheria Toxiods [id number] 63447 Given 12/30/2004 [place] [address] Given 07/19/1991 Tetanus And Diptheria Toxiods Vital [...] H/L Range Note General Health 05/15/2019 [facility] TSH 0.30 mIU/L Low 0.40-4.50 1 Panel [facility] [address] [place], [place] [id number] [phone] T4, Free 1.4 ng/dL Normal 0.8-1.8 CBC (Includes 05/15/2019 [facility] White 14.9 High 3.8-10.8 Diff/PLT) [address] Blood Cell Thousand/[place] [address] Count [phone] Red Blood Cell Count 3.48 Million/uL Low 3.80-5.10 Hemoglobin 10.3 g/dL Low 11.7-15.5 Hematocrit 30.4 % Low 35.0-45.0 MCV 87.4 fL Normal 80.0-100.0 MCH 29.6 pg Normal 27.0-33.0 MCHC 33.9 g/dL Normal 32.0-36.0 RDW 14.2 % Normal 11.0-15.0 Platelet Count 390 Thousand/uL Normal 140-400 MPV 9.2 fL Normal 7.5-12.5 Absolute Neutrophils 06415 cells/uL High 9766-7742 Absolute Lymphocytes 745 cells/uL Low 850-3900 Absolute Monocytes 313 cells/uL Normal 200-950 Absolute Eosinophils 0 cells/uL Low 15-500 Absolute Basophils 30 cells/uL Normal 0-200 Neutrophils 92.7 % High 38-80 Lymphocytes 5.0 % Low 15-49 Monocytes 2.1 % Normal 0-13 Eosinophils 0.0 % Normal 0-8 Basophils 0.2 % Normal 0-2 Comprehensive Metabolic 05/15/2019 [facility] Glucose 198 mg/dL High 65-139 2 Panel [address] [place], [place] [id number] [phone] Urea Nitrogen (BUN) 72 mg/dL High 7-25 Creatinine 1.83 mg/dL High 0.60-0.88 3 eGFR Non-Afr. Ukrainian 25 mL/min/1.73m2 Low > Or = 60 [...] U/L High 6-29 Laboratory test 05/15/2019 [facility] Cortisone, Serum 0.8 g/dL 4 finding [address] [place] [address] [phone] Enhanced PDF Report [id number] SEE IMAGE CMP W/GFR 04/11/2019 [facility] Sodium 140 mmol/L 135-146 5 [address] [place], [place] [address] [phone] Potassium 3.7 mmol/L 3.5-5.3 Chloride 102 mmol/L [...] 1.9-3.7 A/G Ratio 1.5 1.0-2.5 Egfr Non-Afr. Ukrainian 24 ML/MIN/1.73M2 Low > Or = 60 [...] 1.9-3.7 A/G Ratio 1.5 1.0-2.5 Egfr Non-Afr. Ukrainian 24 ML/MIN/1.73M2 Low > Or = 60 Egfr 28 ML/MIN/1.73M2 Low > Or = 60 CBC W/ Diff & PLT 04/11/2019 [facility] WBC 11.3 thous/L High 3.8 -10.8 [address] [place] [address] [phone] RBC 4.03 mill/L 3.80-5.10 Hemoglobin 11.6 g/dL Low 11.7-15.5 Hematocrit 35.3 % 35.0-45.0 MCV 87.6 FL 80.0-100.0 MCH 28.8 pg 27.0-33.0 MCHC 32.9 g/dL 32.0-36.0 RDW 14.3 % 11.0-15.0 Platelet Count 406 thous/L High 140-400 MPV 8.7 FL 7.5-12.5 Neutrophils,Absolute 6850 cells/L 5106-7200 Bands,Absolute PENDING Metamyelocytes,Absolute PENDING Myelocytes,Absolute PENDING Promyelocytes,Absolute [...] MPV 8.7 FL 7.5-12.5 Neutrophils,Absolute 6850 cells/L 1510-3071 Lymphocytes,Absolute 3640 cells/L 850-3900 Monocytes,Absolute 630 cells/L 200-950 Eosinophils,Absolute 60 cells/L 15-500 Basophils,Absolute 60 cells/L 0-200 Total Neutrophils,% 61.2 % 40-75 Total Lymphocytes,% 32.2 % 12-47 Monocytes,% 5.6 % 4-12 Eosinophils,% 0.5 % 0-4 Basophils,% 0.5 % 0-1 13 Lipid Panel 04/11/2019 [facility] Cholesterol 173 mg/dL <199 [address] [place] [address] [phone] HDL Cholesterol 56 mg/dL >50 Cholesterol/HDL Ratio [...] <130 19 Laboratory test finding 04/11/2019 [facility] Cortisol,A.M. PENDING [address] [place], [place] [id number] [phone] Vitamin D,25-Hydroxy,Total,Immunoassay 32 NG/ML 30-100 20 Hemoglobin A1c 6.6 % High 0-5.6 21 TSH & T4,Free 04/11/2019 [facility] TSH 0.31 mIU/L Low 0.40-4.50 22 [address] [place], [place] [address] [phone] T4,Free 1.4 ng/dL 0.8-1.8 Laboratory test finding 04/11/2019 [facility] TSH 0.31 mIU/L Low 0.40-4.50 23 [address] [place], [place] [address] [phone] T4,Free 1.4 ng/dL 0.8-1.8 Clinical PDF Report [id number] SEE IMAGE Hemoglobin A1c 6.6 % High [...] approximately 13% higher for people identified as -Ukrainian. 4 Reference Range: AM: 1.2-3.5 PM: 0.6-2.8 This test was developed and its analytical performance characteristics have been determined by [facility]. It has not been cleared or approved by FDA. This assay has been validated pursuant to the CLIA regulations and is used for clinical purposes. 5 FASTING 6 Reference range for high altitude clients: 18-30 mmol/L 7 GLUCOSE REFERENCE RANGE BASED ON FASTING SPECIMEN. 8 The upper reference limit for Creatinine is approximately 13% higher for people identified as -Ukrainian. 9 Reference range for high altitude clients: 18-30 mmol/L 10 GLUCOSE REFERENCE RANGE BASED ON FASTING SPECIMEN. 11 The upper reference limit for Creatinine is approximately 13% higher for people identified as -Ukrainian. 12 Relative blood cell counts (%) should [...] the estimation of LDL-C. Danny SS et al.MARIAELENA.2013;310(19):1388-8625 Desirable range <100 mg/dL for primary prevention; [...] the estimation of LDL-C. Danny SS et al.MARIAELENA.2013;310(19):5404-8831 Desirable range <100 mg/dL for primary prevention; [...] Vit D, (D2,D3),LC/MS/MS is recommended: Order code 09389 (patients >2 yrs). 21 For someone without [...] Vit D, (D2,D3),LC/MS/MS is recommended: Order code 64897 (patients >2 yrs). 27 REFERENCE RANGE AM: 1-3 DAYS OLD: PREMATURE INFANTS (31-35 WEEKS): < OR = 15.0 MCG/DL TERM INFANTS: < OR = 14.0 MCG/DL 4 DAYS-1 MONTH: NOT ESTABLISHED 1 MONTH-11 MONTHS: 3.0-23.0 MCG/DL 1 YEAR-17 YEARS: 3.0-25.0 MCG/DL 18 YEARS OR OLDER: 4.0-22.0 MCG/DL Procedures Date Code Description Status 06/13/2019 17567 Therapeutic,Prophylactic Intramuscular Inj Completed 05/30/2019 59322 Therapeutic,Prophylactic Intramuscular Inj Completed 04/18/2019 54182 Therapeutic,Prophylactic Intramuscular Inj Completed 04/18/2019 54999 Non-Invcorrotid/Comp /Bilat Study Completed 04/17/2019 33434 Echocardiography Completed 04/11/2019 22159 Spirometry Graphic Record/Max Voluntary Vent Completed 04/11/2019 84687 EKG-Tracing & Report Completed 04/10/2019 09340 EKG-Tracing & Report Completed 04/04/2019 84272 Therapeutic,Prophylactic Intramuscular Inj Completed 03/21/2019 81795 Therapeutic,Prophylactic Intramuscular Inj Completed 02/07/2019 34929 Therapeutic,Prophylactic Intramuscular Inj Completed 01/24/2019 09551 Therapeutic,Prophylactic Intramuscular Inj Completed 01/10/2019 53464 Therapeutic,Prophylactic Intramuscular Inj Completed 03/11/2017 080247119 Bone Mineral Density Test Completed 07/22/2015 05904140 Mammogram Completed 05/13/2007 [id number] Colonoscopy Completed Medical Devices Description No Information [...] Gauss, Donte 06/20/2019 E03.9 Hypothyroidism, unspecified [facility], [facility] 06/20/2019 M15.9 Polyosteoarthritis, unspecified [facility], [facility] 06/20/2019 E55.9 Vitamin D deficiency, unspecified [facility], [facility] 06/20/2019 D64.9 Anemia, unspecified [facility], [facility] 06/20/2019 J45.909 Unspecified asthma, uncomplicated [facility], [facility] 06/13/2019 T78.40xD Allergy, unspecified, subsequent encounter Gauss, Donte 06/12/2019 M15.9 Polyosteoarthritis, unspecified [facility], [facility] 06/12/2019 J44.1 Chronic obstructive pulmonary disease with (acute) Gauss, Donte exacerbation 06/12/2019 I65.23 Occlusion and stenosis of bilateral carotid arteries Gauss , Donte 06/12/2019 E78.5 Hyperlipidemia, unspecified Gauss, Donte 06/12/2019 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 Gauss, [facility] 06/12/2019 E66.09 Other obesity due to excess calories Gauss, Donte 06/12/2019 I11.9 Hypertensive heart disease without heart failure Gauss, Donte 06/12/2019 J44.9 Chronic obstructive pulmonary disease, unspecified Gauss, Donte 06/12/2019 M54.5 Low back pain Gauss, [facility] 06/12/2019 J44.0 Chronic obstructive pulmonary disease with acute Gauss, Donte lower respiratory infection 05/30/2019 T78.40xD Allergy, unspecified, subsequent encounter Gauss, Donte 05/25/2019 R06.02 Shortness of breath Gauss, Donte 05/25/2019 J44.1 Chronic obstructive pulmonary disease with (acute) Gauss, Donte exacerbation 05/25/2019 I65.23 Occlusion and stenosis of bilateral carotid arteries Gauss , [facility] 05/25/2019 T78.40xD Allergy, unspecified, subsequent encounter [facility], [facility] 05/25/2019 E78.5 Hyperlipidemia, unspecified Gauss, [facility] 05/25/2019 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 Gauss, [facility] 05/25/2019 E66.09 Other obesity due to excess calories [facility], [facility] 05/25/2019 I11.9 Hypertensive heart disease without heart failure Gauss, [facility] 05/25/2019 E11.65 Type 2 diabetes mellitus with hyperglycemia [facility], [facility] 05/25/2019 E03.9 Hypothyroidism, unspecified [facility], [facility] 05/25/2019 J40 Bronchitis, not specified as acute or chronic [facility], [facility] 05/25/2019 J45.30 Mild persistent asthma, uncomplicated [facility], [facility] 05/16/2019 T78.40xD Allergy, unspecified, subsequent encounter [facility] 05/15/2019 J44.1 Chronic obstructive pulmonary disease with (acute) [facility], [facility] exacerbation 05/15/2019 T78.40xD Allergy, unspecified, subsequent encounter [facility] 05/15/2019 I65.23 Occlusion and stenosis of bilateral carotid arteries [facility] , [facility] 05/15/2019 E78.2 Mixed hyperlipidemia [facility], [facility] 05/15/2019 R06.02 Shortness of breath [facility], [facility] 05/15/2019 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 [place], [facility] 05/15/2019 E66.09 Other obesity due to excess calories [facility], [facility] 05/15/2019 I11.9 Hypertensive heart disease without heart failure Gauss, [facility] 04/24/2019 R26.89 Other abnormalities of gait and mobility Gauss, [facility] 04/24/2019 T78.40xD Allergy, unspecified, subsequent encounter [facility] 04/24/2019 I65.23 Occlusion and stenosis of bilateral carotid arteries [facility] 04/24/2019 I34.0 Nonrheumatic mitral (valve) insufficiency Gauss, [facility] 04/24/2019 E78.2 Mixed hyperlipidemia Gauss, [facility] 04/24/2019 R06.02 Shortness of breath [facility], [facility] 04/24/2019 J44.9 Chronic obstructive pulmonary disease, unspecified [facility], [facility] 04/24/2019 J44.1 Chronic obstructive pulmonary disease with (acute) Gauss, Donte exacerbation 04/18/2019 T78.40xD Allergy, unspecified, subsequent encounter [facility], [facility] 04/18/2019 I65.23 Occlusion and stenosis of bilateral carotid arteries Gauss , [facility] 04/17/2019 I34.0 Nonrheumatic mitral (valve) insufficiency Gauss, [facility] 04/11/2019 E78.2 Mixed hyperlipidemia [facility], [facility] 04/11/2019 R06.02 Shortness of breath [facility], [facility] 04/11/2019 J44.9 Chronic obstructive pulmonary disease, unspecified [facility], [facility] 04/11/2019 R05 Cough Gauss, [facility] 04/10/2019 E78.2 Mixed hyperlipidemia Gauss, [facility] 04/04/2019 T78.40xD Allergy, unspecified, subsequent encounter [facility], [facility] 03/21/2019 Z23 Encounter for immunization [facility], [facility] 03/21/2019 T78.40xD Allergy, unspecified, subsequent encounter [facility], [facility] 02/21/2019 E11.65 Type 2 diabetes mellitus with hyperglycemia [facility], [facility] 02/14/2019 R42 Dizziness and giddiness [facility], [facility] 02/14/2019 T78.40xD Allergy, unspecified, subsequent encounter [facility], [facility] 02/14/2019 E11.65 Type 2 diabetes mellitus with hyperglycemia [facility], [facility] 02/14/2019 E03.9 Hypothyroidism, unspecified [facility], [facility] 02/14/2019 J44.9 Chronic obstructive pulmonary disease, unspecified [facility], [facility] 02/14/2019 J40 Bronchitis, not specified as acute or chronic [facility], [facility] 02/14/2019 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 [place], [facility] 02/14/2019 E66.09 Other obesity due to excess calories [facility], [facility] 02/14/2019 I11.9 Hypertensive heart disease without heart failure Gauss, [facility] 02/14/2019 J45.30 Mild persistent asthma, uncomplicated [facility], [facility] 02/14/2019 M54.5 Low back pain Gauss, [facility] 02/14/2019 J44.0 Chronic obstructive pulmonary disease with [...] Appointment(s):07/26/2019 9:15 am - Nurse at Main Qqiqxd7307/20/2019 11: 15 am - Donte Mckinney at Main Ugtdpx8907/17/2019 8:00 am - Nurse at Main Office Functional Status Description No Information Available Mental Status Description No Information Available Referrals Refer to Dr Reason for Referral Status Appt Date Servando Disla MD Created [address] [place] [address] [phone] [facility] Sent [address] [place] [address] [phone] Servando Disla MD Created [address] [place] [address] [phone] Denver Hudson MD Created [address] [place], [place] [id number] [phone] Marcello Lino M.D. [facility] Closed 02/27/[address] [place] [address] [phone] Servando Disla MD Closed [address] [place] [address] [phone]
--- OUTSIDE RECORDS SUMMARY | 2019-07-13 12:30 | XMS REPORT | Continuity of Care Document ---
:1935 External Reference #:[id number] Author Name Tuan Castellanos MD (transmitted by agent of provider Amita Morgan) Address [address] [facility], [facility] [place] [address] Care Team Providers Name Role Phone Donte Mckinney MD - Internal Care Team Information Sales Systems Engineer [phone] Medicine Problems Active Problems Provider Date Calcific tendinitis of right shoulder Tuan Castellanos MD Onset: 06/27/2019 Lumbar radiculopathy Tuan Castellanos MD Onset: 06/27/2019 Trochanteric bursitis Tuan Castellanos MD Onset: 06/27/2019 Social History Type Date Description Comments Sex Unknown ETOH Use Denies alcohol use Tobacco Use Start: Unknown Patient has never smoked Smoking Status Reviewed: 06/27/19 Patient has never smoked Exercise Type/Frequency Exercises sporadically Allergies, Adverse Reactions, Alerts Active Allergies Reaction Severity Comments Date Zyrtec 12/30/2011 Levaquin 12/30/2011 Seldane 12/30/2011 Nucynta 06/27/2019 Sulfa Antibiotics 06/27/2019 Medications Active Medications SIG Qnty Indications Ordering Date Provider Azithromycin One tablet M,W,F Unknown 250mg Tablets Levalbuterol Tartrate 1 puff 2-3 times Unknown daily as needed 45mcg/Act Aerosol for sob Fish Oil 1 tab by mouth Unknown 1000mg Capsules every morning Vitamin C 1 by mouth every Unknown 500mg Chewtabs day Vitamin D High Potency once a day Unknown 25mcg (1000 Ut) Capsules Multiple Vitamins-Iron 1 tablet daily Unknown Tablets Levemir 13 units am, 16 Unknown 100Unit/ML units pm Solution Humalog Kwikpen 10 Units plus Unknown sliding scale at 100Unit/ML Solution mealtime Pen-Inject Chlorthalidone 1 by mouth every Unknown 25mg day Tablets Clonidine HCL 1 by mouth three Unknown 0.2mg times a day Tablets Torsemide take 1 tablet Unknown 100mg Tablets daily Amlodipine Besylate 1 by mouth every Unknown 10mg day Tablets Meliza-Sequels 1 tablet once Unknown 50mg daily Tablets ER Calcium 500 Unknown [phone]-mg-Un Tablets Albuterol Sulfate ER as needed Unknown 4mg Tablets ER 12HR Meloxicam 1 po qd 90tabs Unknown 15mg Tablets Tramadol take one tablet 120tabs Unknown Hydrochloride/Acetamin by mouth four ophen times a day as 37.5-325mg Tablets needed Lipitor 1 po qhs 90tabs Unknown 10mg Tablets Enalapril Maleate 1 po bid 90tabs Unknown 20mg Tablets Diltiazem HCL 1 po qd 30caps Unknown 360mg Caps ER 24HR Miacalcin 1 squirt 1units Unknown 200Unit/ML intranasal Solution alternate nostrils Evista 1 po qd 90tabs Unknown 60mg Tablets Nasacort Aq use 1 spray ea 1units Unknown 55mcg/Act nostril qhs prn Aerosol Singulair 1 po qd 30tabs Unknown 10mg Tablets Wendy Allergy once daily 30tabs Unknown 180mg Tablets Medications Administered in Office Medication SIG Qnty Indications Ordering Provider Date Triamcinolone (Kenalog) CARIDAD Vidales 06/27/2019 Injection Immunizations Description No Information Available Vital Signs Date Vital Result Comment 06/27/2019 8:29am Height 58 inches 4'10" Weight 180.00 lb Heart Rate 96 /min Respiratory Rate 18 /min Pain Level 8 BMI (Body Mass Index) 37.6 kg/m2 Results Description No Information Available Procedures Description No Information Available Medical Devices Description No Information Available Encounters Description No Information Available Assessments Date Code Description Provider 06/27/2019 M75.31 Calcific tendinitis of right shoulder Tuan Castellanos MD 06/27/2019 M70.61 Trochanteric bursitis, right hip Tuan Castellanos MD 06/27/2019 M54.16 Radiculopathy, lumbar region Tuan Castellanos MD Plan of Treatment Future Appointment(s):07/28/2019 10:00 am - Tuan Castellanos MD at [facility] at Zoivjh1307/26/2019 10:30 am - Michael Peña MD at [facility] Dermatology AT Que[facility]d11/10/2019 - Tuan Castellanos, MDM75.31 Calcific tendinitis of right shoulderNew Therapy:Physical TherapyReferral:Trey Ferreira MD, Sports Medicine: Family prFollow up:Follow up: 1 month - referral to Dr. Ferreira- back - PTM70.61 Trochanteric bursitis, right hipM54.16 Radiculopathy, lumbar region Functional Status Description No Information Available Mental Status Description No Information Available Referrals Refer to Reason for Referral Status Appt Date Trey Ferreira MD Created [address] [id number] [phone]
--- OUTSIDE RECORDS SUMMARY | 2019-07-13 12:30 | XMS REPORT | Continuity of Care Document ---
:1935 External Reference #:[id number] Author Name Donte Mckinney (transmitted by agent of provider Arely Jefferson) Address [address] [place] [address] Problems Active Problems Provider Date Type 2 [...] Acetonide nostril twice 55mcg/Act daily Aerosol Pen [place] 1/2" dx e11.65 as 100units Donte Mckinney [...] Calcium 500 + D Alex Mckinneyl 05/05/2016 [id number] Tablets Meliza-Sequels Alex Mckinneyl 05/05/2016 65-25mg Tablets [...] Levemir Flextouch taking 13 units in 3Mo oDnte Mckinney 05/14/2015 the am and 16 100Unit/ML Solution units in the pm Pen-Inject Vasotec 1 by mouth twice a 180tabs Donte Mckinney 04/09/2015 20mg Tablets day Knee High Support as directed dx 1units Donte Mckinney 03/19/2015 Hose 250.00 459.81 20-30 compression [facility] Donte Mckinney 02/14/2013 seat dx 781.2 [...] CPT Code Status Date Vaccine Lot # [id number] Given 05/16/2019 Pneumovax Polyvalent Inj Im Q2035 Given 03/21/2019 Influenza Virus (Quadrivalent)Splitvirus 3 Years Of Age And Older Q2035 Given 03/21/2019 Influenza Virus (Quadrivalent)Splitvirus 3 [id number] Years Of Age And Older 63279 Given 03/21/2019 Influenza Virus Vaccine, Quadrivalent, Split, Preservative Free Q2035 Given 04/11/2018 Influenza Virus (Quadrivalent)Splitvirus 3 [id number] Years Of Age And Older Q2036 Given 03/23/2017 Flulaval Q2035 Given 03/23/2017 Influenza Virus (Quadrivalent)Splitvirus 3 Years Of Age And Older Q2037 Given 04/07/2016 Influenza Vaccine (Fluvirin) 3 Years Of Age Or [id number] Older 32396 Given 05/21/2015 Pneumococcal Conjugate Vaccine 13 Valent For [id number] Intramuscular Use Q2035 Given 03/19/2015 Influenza Virus (Quadrivalent)Splitvirus 3 [id number] Years Of Age And Older Q2037 Given 03/13/2014 Influenza Vaccine (Fluvirin) 3 Years Of Age Or Older Q2038 Given 04/04/2013 Influenza Vaccine (Fluzone) Administered Age 3 And Older 77072 Given 04/04/2013 Influenza Vaccine [id number] Q2037 Given 04/26/2012 Influenza Vaccine (Fluvirin) 1 Years Of Age Or [id number] Older Q2036 Given 04/15/2011 Flulaval [id number] 61694 Given 06/30/2010 Zostavax [id number] 12986 Given 04/15/2010 Influenza Vaccine [id number] 41933 Given 12/13/2009 Pneumovax Polyvalent Inj Im [id number] 76819 Given 04/23/2009 Influenza Vaccine 41349 Given 04/23/2009 Influenza Vaccine [id number] 08839 Given 04/17/2008 Influenza Vaccine 41480 84284 Given 04/12/2007 Influenza Vaccine 35077 68488 Given 04/16/2006 Influenza Vaccine 43411 Given 04/16/2006 Influenza Vaccine 28386 89656 Given 05/05/2005 Influenza Vaccine [id number] 41017 Given 05/05/2005 Influenza Vaccine 79354 Given 01/11/2005 Tetanus And Diptheria Toxiods [id number] 92577 Given 12/30/2004 [place] [address] Given 07/19/1991 Tetanus And Diptheria Toxiods Vital [...] H/L Range Note General Health 05/15/2019 [facility] TSH 0.30 mIU/L Low 0.40-4.50 1 Panel [facility] [address] [place], [place] [id number] [phone] T4, Free 1.4 ng/dL Normal 0.8-1.8 CBC (Includes 05/15/2019 [facility] White 14.9 High 3.8-10.8 Diff/PLT) [address] Blood Cell Thousand/[place] [address] Count [phone] Red Blood Cell Count 3.48 Million/uL Low 3.80-5.10 Hemoglobin 10.3 g/dL Low 11.7-15.5 Hematocrit 30.4 % Low 35.0-45.0 MCV 87.4 fL Normal 80.0-100.0 MCH 29.6 pg Normal 27.0-33.0 MCHC 33.9 g/dL Normal 32.0-36.0 RDW 14.2 % Normal 11.0-15.0 Platelet Count 390 Thousand/uL Normal 140-400 MPV 9.2 fL Normal 7.5-12.5 Absolute Neutrophils 06531 cells/uL High 5975-1461 Absolute Lymphocytes 745 cells/uL Low 850-3900 Absolute Monocytes 313 cells/uL Normal 200-950 Absolute Eosinophils 0 cells/uL Low 15-500 Absolute Basophils 30 cells/uL Normal 0-200 Neutrophils 92.7 % High 38-80 Lymphocytes 5.0 % Low 15-49 Monocytes 2.1 % Normal 0-13 Eosinophils 0.0 % Normal 0-8 Basophils 0.2 % Normal 0-2 Comprehensive Metabolic 05/15/2019 [facility] Glucose 198 mg/dL High 65-139 2 Panel [address] [place], [place] [id number] [phone] Urea Nitrogen (BUN) 72 mg/dL High 7-25 Creatinine 1.83 mg/dL High 0.60-0.88 3 eGFR Non-Afr. Fijian 25 mL/min/1.73m2 Low > Or = 60 [...] U/L High 6-29 Laboratory test 05/15/2019 [facility] Cortisone, Serum 0.8 g/dL 4 finding [address] [place] [address] [phone] Enhanced PDF Report [id number] SEE IMAGE CMP W/GFR 04/11/2019 [facility] Sodium 140 mmol/L 135-146 5 [address] [place], [place] [address] [phone] Potassium 3.7 mmol/L 3.5-5.3 Chloride 102 mmol/L [...] 1.9-3.7 A/G Ratio 1.5 1.0-2.5 Egfr Non-Afr. Fijian 24 ML/MIN/1.73M2 Low > Or = 60 [...] 1.9-3.7 A/G Ratio 1.5 1.0-2.5 Egfr Non-Afr. Fijian 24 ML/MIN/1.73M2 Low > Or = 60 Egfr 28 ML/MIN/1.73M2 Low > Or = 60 CBC W/ Diff & PLT 04/11/2019 [facility] WBC 11.3 thous/L High 3.8 -10.8 [address] [place] [address] [phone] RBC 4.03 mill/L 3.80-5.10 Hemoglobin 11.6 g/dL Low 11.7-15.5 Hematocrit 35.3 % 35.0-45.0 MCV 87.6 FL 80.0-100.0 MCH 28.8 pg 27.0-33.0 MCHC 32.9 g/dL 32.0-36.0 RDW 14.3 % 11.0-15.0 Platelet Count 406 thous/L High 140-400 MPV 8.7 FL 7.5-12.5 Neutrophils,Absolute 6850 cells/L 5566-3584 Bands,Absolute PENDING Metamyelocytes,Absolute PENDING Myelocytes,Absolute PENDING Promyelocytes,Absolute [...] MPV 8.7 FL 7.5-12.5 Neutrophils,Absolute 6850 cells/L 9582-7272 Lymphocytes,Absolute 3640 cells/L 850-3900 Monocytes,Absolute 630 cells/L 200-950 Eosinophils,Absolute 60 cells/L 15-500 Basophils,Absolute 60 cells/L 0-200 Total Neutrophils,% 61.2 % 40-75 Total Lymphocytes,% 32.2 % 12-47 Monocytes,% 5.6 % 4-12 Eosinophils,% 0.5 % 0-4 Basophils,% 0.5 % 0-1 13 Lipid Panel 04/11/2019 [facility] Cholesterol 173 mg/dL <199 [address] [place] [address] [phone] HDL Cholesterol 56 mg/dL >50 Cholesterol/HDL Ratio [...] <130 19 Laboratory test finding 04/11/2019 [facility] Cortisol,A.M. PENDING [address] [place], [place] [id number] [phone] Vitamin D,25-Hydroxy,Total,Immunoassay 32 NG/ML 30-100 20 Hemoglobin A1c 6.6 % High 0-5.6 21 TSH & T4,Free 04/11/2019 [facility] TSH 0.31 mIU/L Low 0.40-4.50 22 [address] [place], [place] [id number] [phone] T4,Free 1.4 ng/dL 0.8-1.8 Laboratory test finding 04/11/2019 [facility] TSH 0.31 mIU/L Low 0.40-4.50 23 [address] [place], [place] [address] [phone] T4,Free 1.4 ng/dL 0.8-1.8 Clinical PDF Report [id number] SEE IMAGE Hemoglobin A1c 6.6 % High [...] approximately 13% higher for people identified as -Fijian. 4 Reference Range: AM: 1.2-3.5 PM: 0.6-2.8 This test was developed and its analytical performance characteristics have been determined by [facility]. It has not been cleared or approved by FDA. This assay has been validated pursuant to the CLIA regulations and is used for clinical purposes. 5 FASTING 6 Reference range for high altitude clients: 18-30 mmol/L 7 GLUCOSE REFERENCE RANGE BASED ON FASTING SPECIMEN. 8 The upper reference limit for Creatinine is approximately 13% higher for people identified as -Fijian. 9 Reference range for high altitude clients: 18-30 mmol/L 10 GLUCOSE REFERENCE RANGE BASED ON FASTING SPECIMEN. 11 The upper reference limit for Creatinine is approximately 13% higher for people identified as -Fijian. 12 Relative blood cell counts (%) should [...] the estimation of LDL-C. Danny SS et al.MARIAELENA.2013;310(19):8741-5425 Desirable range <100 mg/dL for primary prevention; [...] the estimation of LDL-C. Danny SS et al.MARIAELENA.2013;310(19):0068-7296 Desirable range <100 mg/dL for primary prevention; [...] Vit D, (D2,D3),LC/MS/MS is recommended: Order code 83189 (patients >2 yrs). 21 For someone without [...] Vit D, (D2,D3),LC/MS/MS is recommended: Order code 16148 (patients >2 yrs). 27 REFERENCE RANGE AM: 1-3 DAYS OLD: PREMATURE INFANTS (31-35 WEEKS): < OR = 15.0 MCG/DL TERM INFANTS: < OR = 14.0 MCG/DL 4 DAYS-1 MONTH: NOT ESTABLISHED 1 MONTH-11 MONTHS: 3.0-23.0 MCG/DL 1 YEAR-17 YEARS: 3.0-25.0 MCG/DL 18 YEARS OR OLDER: 4.0-22.0 MCG/DL Procedures Date Code Description Status 06/13/2019 16035 Therapeutic,Prophylactic Intramuscular Inj Completed 05/30/2019 05855 Therapeutic,Prophylactic Intramuscular Inj Completed 04/18/2019 19000 Therapeutic,Prophylactic Intramuscular Inj Completed 04/18/2019 13484 Non-Invcorrotid/Comp /Bilat Study Completed 04/17/2019 53095 Echocardiography Completed 04/11/2019 31612 Spirometry Graphic Record/Max Voluntary Vent Completed 04/11/2019 05955 EKG-Tracing & Report Completed 04/10/2019 16664 EKG-Tracing & Report Completed 04/04/2019 32107 Therapeutic,Prophylactic Intramuscular Inj Completed 03/21/2019 73942 Therapeutic,Prophylactic Intramuscular Inj Completed 02/07/2019 27604 Therapeutic,Prophylactic Intramuscular Inj Completed 01/24/2019 26585 Therapeutic,Prophylactic Intramuscular Inj Completed 01/10/2019 42638 Therapeutic,Prophylactic Intramuscular Inj Completed 03/11/2017 646986818 Bone Mineral Density Test Completed 07/22/2015 46505319 Mammogram Completed 05/13/2007 90873833 Colonoscopy Completed Medical Devices Description No Information [...] Gauss, Donte 06/20/2019 E03.9 Hypothyroidism, unspecified Gauss, [facility] 06/20/2019 M15.9 Polyosteoarthritis, unspecified [facility], [facility] 06/20/2019 E55.9 Vitamin D deficiency, unspecified Gauss, [facility] 06/20/2019 D64.9 Anemia, unspecified Gauss, [facility] 06/20/2019 J45.909 Unspecified asthma, uncomplicated Gauss, [facility] 06/13/2019 T78.40xD Allergy, unspecified, subsequent encounter Gauss, Donte 06/12/2019 M15.9 Polyosteoarthritis, unspecified Gauss, [facility] 06/12/2019 J44.1 Chronic obstructive pulmonary disease with (acute) Gauss, Donte exacerbation 06/12/2019 I65.23 Occlusion and stenosis of bilateral carotid arteries Gauss , Donte 06/12/2019 E78.5 Hyperlipidemia, unspecified Gauss, Donte 06/12/2019 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 Gauss, [facility] 06/12/2019 E66.09 Other obesity due to excess calories Gauss, Donte 06/12/2019 I11.9 Hypertensive heart disease without heart failure Gauss, Donte 06/12/2019 J44.9 Chronic obstructive pulmonary disease, unspecified Gauss, Donte 06/12/2019 M54.5 Low back pain Gauss, [facility] 06/12/2019 J44.0 Chronic obstructive pulmonary disease with acute Gauss, Donte lower respiratory infection 05/30/2019 T78.40xD Allergy, unspecified, subsequent encounter Gauss, Donte 05/25/2019 R06.02 Shortness of breath Gauss, Donte 05/25/2019 J44.1 Chronic obstructive pulmonary disease with (acute) Gauss, Donte exacerbation 05/25/2019 I65.23 Occlusion and stenosis of bilateral carotid arteries Gauss , [facility] 05/25/2019 T78.40xD Allergy, unspecified, subsequent encounter [facility], [facility] 05/25/2019 E78.5 Hyperlipidemia, unspecified Gauss, [facility] 05/25/2019 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 Gauss, [facility] 05/25/2019 E66.09 Other obesity due to excess calories [facility], [facility] 05/25/2019 I11.9 Hypertensive heart disease without heart failure Gauss, [facility] 05/25/2019 E11.65 Type 2 diabetes mellitus with hyperglycemia [facility], [facility] 05/25/2019 E03.9 Hypothyroidism, unspecified [facility], [facility] 05/25/2019 J40 Bronchitis, not specified as acute or chronic [facility], [facility] 05/25/2019 J45.30 Mild persistent asthma, uncomplicated [facility], [facility] 05/16/2019 T78.40xD Allergy, unspecified, subsequent encounter 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 04/24/2019 I65.23 Occlusion and stenosis of bilateral carotid arteries [facility] 04/24/2019 I34.0 Nonrheumatic mitral (valve) insufficiency Gauss, [facility] 04/24/2019 E78.2 Mixed hyperlipidemia Gauss, [facility] 04/24/2019 R06.02 Shortness of breath Gauss, [facility] 04/24/2019 J44.9 Chronic obstructive pulmonary disease, unspecified Gauss, [facility] 04/24/2019 J44.1 Chronic obstructive pulmonary disease with (acute) Gauss, Donte exacerbation 04/18/2019 T78.40xD Allergy, unspecified, subsequent encounter [facility], [facility] 04/18/2019 I65.23 Occlusion and stenosis of bilateral carotid arteries Gauss , [facility] 04/17/2019 I34.0 Nonrheumatic mitral (valve) insufficiency Gauss, [facility] 04/11/2019 E78.2 Mixed hyperlipidemia Gauss, [facility] 04/11/2019 R06.02 Shortness of breath Gauss, [facility] 04/11/2019 J44.9 Chronic obstructive pulmonary disease, unspecified Gauss, [facility] 04/11/2019 R05 Cough Gauss, [facility] 04/10/2019 E78.2 Mixed hyperlipidemia Gauss, [facility] 04/04/2019 T78.40xD Allergy, unspecified, subsequent encounter Gauss, [facility] 03/21/2019 Z23 Encounter for immunization [facility], [facility] 03/21/2019 T78.40xD Allergy, unspecified, subsequent encounter Gauss, [facility] 02/21/2019 E11.65 Type 2 diabetes mellitus with hyperglycemia [facility], [facility] 02/14/2019 R42 Dizziness and giddiness [facility], [facility] 02/14/2019 T78.40xD Allergy, unspecified, subsequent encounter [facility], [facility] 02/14/2019 E11.65 Type 2 diabetes mellitus with hyperglycemia [facility], [facility] 02/14/2019 E03.9 Hypothyroidism, unspecified Gauss, [facility] 02/14/2019 J44.9 Chronic obstructive pulmonary disease, unspecified Gauss, [facility] 02/14/2019 J40 Bronchitis, not specified as acute or chronic Gauss, [facility] 02/14/2019 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 [facility], [facility] 02/14/2019 E66.09 Other obesity due to excess calories Gauss, [facility] 02/14/2019 I11.9 Hypertensive heart disease without heart failure Gauss, [facility] 02/14/2019 J45.30 Mild persistent asthma, uncomplicated Gauss, [facility] 02/14/2019 M54.5 Low back pain Gauss, [facility] 02/14/2019 J44.0 Chronic obstructive pulmonary disease with [...] Appointment(s):07/26/2019 9:15 am - Nurse at Main Gatwfm0607/20/2019 11: 15 am - Donte Mckinney at Main Utnycm9207/17/2019 8:00 am - Nurse at Main Office Functional Status Description No Information Available Mental Status Description No Information Available Referrals Refer to Dr Reason for Referral Status Appt Date Servando Disla MD Created [address] [place] [address] [phone] [facility] Sent [address] [place] [address] [phone] Servando Disla MD Created [address] [place] [address] [phone] Denver Hudson MD Created [address] [place], [place] [id number] [phone] Marcello Lino M.D. [facility] Closed 02/27/[address] [place] [address] [phone] Servando Disla MD Closed [address] [place] [address] [phone]
--- OUTSIDE RECORDS SUMMARY | 2019-07-13 12:30 | XMS REPORT | Continuity of Care Document ---
:1935 External Reference #:[id number] Author Name Donte Mckinney (transmitted by agent of provider Arely Jefferson) Address [address] [place] [address] Problems Active Problems Provider Date Type 2 [...] Acetonide nostril twice 55mcg/Act daily Aerosol Pen [place] 1/2" dx e11.65 as 100units Donte Mckinney [...] Calcium 500 + D Alex Mckinneyl 05/05/2016 [id number] Tablets Meliza-Sequels Alex Mckinneyl 05/05/2016 65-25mg Tablets [...] 459.81 20-30 compression [facility] Donte Mckinney 02/14/2013 seat dx 781.2 Tylenol [...] CPT Code Status Date Vaccine Lot # 24073 Given 05/16/2019 Pneumovax Polyvalent Inj Im Q2035 Given 03/21/2019 Influenza Virus (Quadrivalent)Splitvirus 3 Years Of Age And Older Q2035 Given 03/21/2019 Influenza Virus (Quadrivalent)Splitvirus 3 [id number] Years Of Age And Older 25865 Given 03/21/2019 Influenza Virus Vaccine, Quadrivalent, Split, Preservative Free Q2035 Given 04/11/2018 Influenza Virus (Quadrivalent)Splitvirus 3 [id number] Years Of Age And Older Q2036 Given 03/23/2017 Flulaval Q2035 Given 03/23/2017 Influenza Virus (Quadrivalent)Splitvirus 3 Years Of Age And Older Q2037 Given 04/07/2016 Influenza Vaccine (Fluvirin) 3 Years Of Age Or [id number] Older 47563 Given 05/21/2015 Pneumococcal Conjugate Vaccine 13 Valent For [id number] Intramuscular Use Q2035 Given 03/19/2015 Influenza Virus (Quadrivalent)Splitvirus 3 [id number] Years Of Age And Older Q2037 Given 03/13/2014 Influenza Vaccine (Fluvirin) 3 Years Of Age Or Older Q2038 Given 04/04/2013 Influenza Vaccine (Fluzone) Administered Age 3 And Older 72937 Given 04/04/2013 Influenza Vaccine [id number] Q2037 Given 04/26/2012 Influenza Vaccine (Fluvirin) 1 Years Of Age Or [id number] Older Q2036 Given 04/15/2011 Flulaval [id number] 67603 Given 06/30/2010 Zostavax [id number] 09669 Given 04/15/2010 Influenza Vaccine [id number] 25728 Given 12/13/2009 Pneumovax Polyvalent Inj Im [id number] 17174 Given 04/23/2009 Influenza Vaccine 51874 Given 04/23/2009 Influenza Vaccine [id number] 91704 Given 04/17/2008 Influenza Vaccine 51034 45048 Given 04/12/2007 Influenza Vaccine 48325 28156 Given 04/16/2006 Influenza Vaccine 24969 Given 04/16/2006 Influenza Vaccine [id number] 60626 Given 05/05/2005 Influenza Vaccine [id number] 49064 Given 05/05/2005 Influenza Vaccine 89331 Given 01/11/2005 Tetanus And Diptheria Toxiods [id number] 37275 Given 12/30/2004 [place] [address] Given 07/19/1991 Tetanus And Diptheria Toxiods Vital [...] H/L Range Note General Health 05/15/2019 [facility] TSH 0.30 mIU/L Low 0.40-4.50 1 Panel [facility] [address] [place], [place] [id number] [phone] T4, Free 1.4 ng/dL Normal 0.8-1.8 CBC (Includes 05/15/2019 [facility] White 14.9 High 3.8-10.8 Diff/PLT) [address] Blood Cell Thousand/[place] [address] Count [phone] Red Blood Cell Count 3.48 Million/uL Low 3.80-5.10 Hemoglobin 10.3 g/dL Low 11.7-15.5 Hematocrit 30.4 % Low 35.0-45.0 MCV 87.4 fL Normal 80.0-100.0 MCH 29.6 pg Normal 27.0-33.0 MCHC 33.9 g/dL Normal 32.0-36.0 RDW 14.2 % Normal 11.0-15.0 Platelet Count 390 Thousand/uL Normal 140-400 MPV 9.2 fL Normal 7.5-12.5 Absolute Neutrophils 97676 cells/uL High 0657-9365 Absolute Lymphocytes 745 cells/uL Low 850-3900 Absolute Monocytes 313 cells/uL Normal 200-950 Absolute Eosinophils 0 cells/uL Low 15-500 Absolute Basophils 30 cells/uL Normal 0-200 Neutrophils 92.7 % High 38-80 Lymphocytes 5.0 % Low 15-49 Monocytes 2.1 % Normal 0-13 Eosinophils 0.0 % Normal 0-8 Basophils 0.2 % Normal 0-2 Comprehensive Metabolic 05/15/2019 [facility] Glucose 198 mg/dL High 65-139 2 Panel [address] [place], [place] [address] [phone] Urea Nitrogen (BUN) 72 mg/dL High 7-25 Creatinine 1.83 mg/dL High 0.60-0.88 3 eGFR Non-Afr. Venezuelan 25 mL/min/1.73m2 Low > Or = 60 [...] U/L High 6-29 Laboratory test 05/15/2019 [facility] Cortisone, Serum 0.8 g/dL 4 finding [address] [place] [address] [phone] Enhanced PDF Report [id number] SEE IMAGE CMP W/GFR 04/11/2019 [facility] Sodium 140 mmol/L 135-146 5 [address] [place], [place] [address] [phone] Potassium 3.7 mmol/L 3.5-5.3 Chloride 102 mmol/L [...] 1.9-3.7 A/G Ratio 1.5 1.0-2.5 Egfr Non-Afr. Venezuelan 24 ML/MIN/1.73M2 Low > Or = 60 [...] 1.9-3.7 A/G Ratio 1.5 1.0-2.5 Egfr Non-Afr. Venezuelan 24 ML/MIN/1.73M2 Low > Or = 60 Egfr 28 ML/MIN/1.73M2 Low > Or = 60 CBC W/ Diff & PLT 04/11/2019 [facility] WBC 11.3 thous/L High 3.8 -10.8 [address] [place] [address] [phone] RBC 4.03 mill/L 3.80-5.10 Hemoglobin 11.6 g/dL Low 11.7-15.5 Hematocrit 35.3 % 35.0-45.0 MCV 87.6 FL 80.0-100.0 MCH 28.8 pg 27.0-33.0 MCHC 32.9 g/dL 32.0-36.0 RDW 14.3 % 11.0-15.0 Platelet Count 406 thous/L High 140-400 MPV 8.7 FL 7.5-12.5 Neutrophils,Absolute 6850 cells/L [phone] Bands,Absolute PENDING Metamyelocytes,Absolute PENDING Myelocytes,Absolute PENDING Promyelocytes,Absolute [...] MPV 8.7 FL 7.5-12.5 Neutrophils,Absolute 6850 cells/L 1046-5163 Lymphocytes,Absolute 3640 cells/L 850-3900 Monocytes,Absolute 630 cells/L 200-950 Eosinophils,Absolute 60 cells/L 15-500 Basophils,Absolute 60 cells/L 0-200 Total Neutrophils,% 61.2 % 40-75 Total Lymphocytes,% 32.2 % 12-47 Monocytes,% 5.6 % 4-12 Eosinophils,% 0.5 % 0-4 Basophils,% 0.5 % 0-1 13 Lipid Panel 04/11/2019 [facility] Cholesterol 173 mg/dL <199 [address] [place] [address] [phone] HDL Cholesterol 56 mg/dL >50 Cholesterol/HDL Ratio [...] <130 19 Laboratory test finding 04/11/2019 [facility] Cortisol,A.M. PENDING [address] [place], [place] [address] [phone] Vitamin D,25-Hydroxy,Total,Immunoassay 32 NG/ML 30-100 20 Hemoglobin A1c 6.6 % High 0-5.6 21 TSH & T4,Free 04/11/2019 [facility] TSH 0.31 mIU/L Low 0.40-4.50 22 [address] [place], [place] [address] [phone] T4,Free 1.4 ng/dL 0.8-1.8 Laboratory test finding 04/11/2019 [facility] TSH 0.31 mIU/L Low 0.40-4.50 23 [address] [place], [place] [address] [phone] T4,Free 1.4 ng/dL 0.8-1.8 Clinical PDF Report [id number] SEE IMAGE Hemoglobin A1c 6.6 % High [...] approximately 13% higher for people identified as -Venezuelan. 4 Reference Range: AM: 1.2-3.5 PM: 0.6-2.8 This test was developed and its analytical performance characteristics have been determined by [facility]. It has not been cleared or approved by FDA. This assay has been validated pursuant to the CLIA regulations and is used for clinical purposes. 5 FASTING 6 Reference range for high altitude clients: 18-30 mmol/L 7 GLUCOSE REFERENCE RANGE BASED ON FASTING SPECIMEN. 8 The upper reference limit for Creatinine is approximately 13% higher for people identified as -Venezuelan. 9 Reference range for high altitude clients: 18-30 mmol/L 10 GLUCOSE REFERENCE RANGE BASED ON FASTING SPECIMEN. 11 The upper reference limit for Creatinine is approximately 13% higher for people identified as -Venezuelan. 12 Relative blood cell counts (%) should [...] the estimation of LDL-C. Danny SS et al.MARIAELENA.2013;310(19):0084-8213 Desirable range <100 mg/dL for primary prevention; [...] the estimation of LDL-C. Danny SS et al.MARIAELENA.2013;310(19):8833-0777 Desirable range <100 mg/dL for primary prevention; [...] Vit D, (D2,D3),LC/MS/MS is recommended: Order code 93523 (patients >2 yrs). 21 For someone without [...] Vit D, (D2,D3),LC/MS/MS is recommended: Order code 94637 (patients >2 yrs). 27 REFERENCE RANGE AM: 1-3 DAYS OLD: PREMATURE INFANTS (31-35 WEEKS): < OR = 15.0 MCG/DL TERM INFANTS: < OR = 14.0 MCG/DL 4 DAYS-1 MONTH: NOT ESTABLISHED 1 MONTH-11 MONTHS: 3.0-23.0 MCG/DL 1 YEAR-17 YEARS: 3.0-25.0 MCG/DL 18 YEARS OR OLDER: 4.0-22.0 MCG/DL Procedures Date Code Description Status 06/13/2019 10679 Therapeutic,Prophylactic Intramuscular Inj Completed 05/30/2019 50859 Therapeutic,Prophylactic Intramuscular Inj Completed 04/18/2019 37036 Therapeutic,Prophylactic Intramuscular Inj Completed 04/18/2019 08323 Non-Invcorrotid/Comp /Bilat Study Completed 04/17/2019 04804 Echocardiography Completed 04/11/2019 23726 Spirometry Graphic Record/Max Voluntary Vent Completed 04/11/2019 36861 EKG-Tracing & Report Completed 04/10/2019 03895 EKG-Tracing & Report Completed 04/04/2019 03735 Therapeutic,Prophylactic Intramuscular Inj Completed 03/21/2019 05832 Therapeutic,Prophylactic Intramuscular Inj Completed 02/07/2019 63513 Therapeutic,Prophylactic Intramuscular Inj Completed 01/24/2019 24373 Therapeutic,Prophylactic Intramuscular Inj Completed 01/10/2019 08104 Therapeutic,Prophylactic Intramuscular Inj Completed 12/27/2018 08913 Therapeutic,Prophylactic Intramuscular Inj Completed 03/11/2017 902970139 Bone Mineral Density Test Completed 07/22/2015 60326612 Mammogram Completed 05/13/2007 19415147 Colonoscopy Completed Medical Devices Description No Information [...] heart disease without heart failure Office Visit 12/20/2018 10:45a Main Office Donte Mckinney T78.40xD Allergy, unspecified, subsequent encounter E11.65 Type 2 diabetes mellitus with hyperglycemia E03.9 Hypothyroidism, unspecified J44.9 Chronic obstructive pulmonary disease, unspecified J40 Bronchitis, not specified as acute or chronic 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 Other obesity due to excess calories I11.9 Hypertensive heart disease without heart failure E78.5 Hyperlipidemia, unspecified J44.1 Chronic obstructive pulmonary disease w (acute) exacerbation R06.02 Shortness of breath I34.0 Nonrheumatic mitral (valve) insufficiency 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 E55.9 Vitamin D deficiency, unspecified Assessments Date Code Description Provider 06/20/2019 I11.9 Hypertensive heart disease without heart failure Gauss, Donte 06/20/2019 E66.09 Other obesity due to excess calories Gauss, Donte 06/20/2019 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 Gauss, Donte 06/20/2019 E78.5 Hyperlipidemia, unspecified Gauss, Donte 06/20/2019 N18.9 Chronic kidney disease, unspecified Gauss, Donte 06/20/2019 E11.65 Type 2 diabetes mellitus with hyperglycemia Gauss, Donte 06/20/2019 E03.9 Hypothyroidism, unspecified Gauss, Donte 06/20/2019 M15.9 Polyosteoarthritis, unspecified Gauss, Donte 06/20/2019 E55.9 Vitamin D deficiency, unspecified Gauss, Donte 06/20/2019 D64.9 Anemia, unspecified Gauss, Donte 06/20/2019 J45.909 Unspecified asthma, uncomplicated Gauss, Donte 06/13/2019 T78.40xD Allergy, unspecified, subsequent encounter Gauss, Donte 06/12/2019 M15.9 Polyosteoarthritis, unspecified Gauss, Donte 06/12/2019 J44.1 Chronic obstructive pulmonary disease with (acute) Gauss, Donte exacerbation 06/12/2019 I65.23 Occlusion and stenosis of bilateral carotid arteries Gauss , Donte 06/12/2019 E78.5 Hyperlipidemia, unspecified Gauss, Donte 06/12/2019 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 Gauss, Donte 06/12/2019 E66.09 Other obesity due to excess calories Gauss, Donte 06/12/2019 I11.9 Hypertensive heart disease without heart failure Gauss, Donte 06/12/2019 J44.9 Chronic obstructive pulmonary disease, unspecified Gauss, Donte 06/12/2019 M54.5 Low back pain Gauss, [facility] 06/12/2019 J44.0 Chronic obstructive pulmonary disease with acute Gauss, Donte lower respiratory infection 05/30/2019 T78.40xD Allergy, unspecified, subsequent encounter Gauss, [facility] 05/25/2019 R06.02 Shortness of breath Mnuss, [facility] 05/25/2019 J44.1 Chronic obstructive pulmonary disease with (acute) Gauss, Donte exacerbation 05/25/2019 I65.23 Occlusion and stenosis of bilateral carotid arteries Gauss , Donte 05/25/2019 T78.40xD Allergy, unspecified, subsequent encounter Gauss, [facility] 05/25/2019 E78.5 Hyperlipidemia, unspecified Gauss, [facility] 05/25/2019 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 Gauss, [facility] 05/25/2019 E66.09 Other obesity due to excess calories Mnuss, [facility] 05/25/2019 I11.9 Hypertensive heart disease without heart failure Gauss, Donte 05/25/2019 E11.65 Type 2 diabetes mellitus with hyperglycemia [facility], [facility] 05/25/2019 E03.9 Hypothyroidism, unspecified Gauss, [facility] 05/25/2019 J40 Bronchitis, not specified as acute or chronic Gauss, [facility] 05/25/2019 J45.30 Mild persistent asthma, uncomplicated Gauss, Donte 05/16/2019 T78.40xD Allergy, unspecified, subsequent encounter Gauss, Donte 05/15/2019 J44.1 Chronic obstructive pulmonary disease with (acute) Gauss, Donte exacerbation 05/15/2019 T78.40xD Allergy, unspecified, subsequent encounter Gauss, Donte 05/15/2019 I65.23 Occlusion and stenosis of bilateral carotid arteries Gauss , Donte 05/15/2019 E78.2 Mixed hyperlipidemia Gauss, [facility] 05/15/2019 R06.02 Shortness of breath Gauss, [facility] 05/15/2019 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 [facility], [facility] 05/15/2019 E66.09 Other obesity due to excess calories [facility], [facility] 05/15/2019 I11.9 Hypertensive heart disease without heart failure [facility], [facility] 04/24/2019 R26.89 Other abnormalities of gait and mobility [facility], [facility] 04/24/2019 T78.40xD Allergy, unspecified, subsequent encounter [facility], [facility] 04/24/2019 I65.23 Occlusion and stenosis of bilateral carotid arteries [facility] , [facility] 04/24/2019 I34.0 Nonrheumatic mitral (valve) insufficiency [facility], [facility] 04/24/2019 E78.2 Mixed hyperlipidemia [facility], [facility] 04/24/2019 R06.02 Shortness of breath [facility], [facility] 04/24/2019 J44.9 Chronic obstructive pulmonary disease, unspecified [facility], [facility] 04/24/2019 J44.1 Chronic obstructive pulmonary disease [facility] 04/18/2019 T78.40xD Allergy, unspecified, subsequent encounter [facility] 04/18/2019 I65.23 Occlusion and stenosis of bilateral carotid arteries [facility] , [facility] 04/17/2019 I34.0 Nonrheumatic mitral (valve) insufficiency [facility], [facility] 04/11/2019 E78.2 Mixed hyperlipidemia [facility], [facility] 04/11/2019 R06.02 Shortness of breath [facility], [facility] 04/11/2019 J44.9 Chronic obstructive pulmonary disease, unspecified Gauss, [facility] 04/11/2019 R05 Cough Gauss, [facility] 04/10/2019 E78.2 Mixed hyperlipidemia Gauss, [facility] 04/04/2019 T78.40xD Allergy, unspecified, subsequent encounter [facility] 03/21/2019 Z23 Encounter for immunization [facility], [facility] 03/21/2019 T78.40xD Allergy, unspecified, subsequent encounter [facility], [facility] 02/21/2019 E11.65 Type 2 diabetes mellitus with hyperglycemia [facility] 02/14/2019 R42 Dizziness and giddiness [facility], [facility] 02/14/2019 T78.40xD Allergy, unspecified, subsequent encounter Gauss, [facility] 02/14/2019 E11.65 Type 2 diabetes mellitus with hyperglycemia Gauss, Donte 02/14/2019 E03.9 Hypothyroidism, unspecified Gauss, Donte 02/14/2019 J44.9 Chronic obstructive pulmonary disease, unspecified Gauss, [facility] 02/14/2019 J40 Bronchitis, not specified as acute or chronic Gauss, Donte 02/14/2019 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 Gauss, Donte 02/14/2019 E66.09 Other obesity due to excess calories Gauss, Donte 02/14/2019 I11.9 Hypertensive heart disease without heart failure Gauss, Donte 02/14/2019 J45.30 Mild persistent asthma, uncomplicated Gauss, [facility] 02/14/2019 M54.5 Low back pain Gauss, [facility] 02/14/2019 J44.0 Chronic obstructive pulmonary disease with acute Gauss, Donte lower respiratory infection 02/14/2019 I73.9 Peripheral vascular disease, unspecified Gauss, [facility] 02/14/2019 I65.23 Occlusion and stenosis of bilateral carotid arteries Gauss , Donte 02/14/2019 R26.89 Other abnormalities of gait and mobility Gauss, [facility] 02/07/2019 T78.40xD Allergy, unspecified, subsequent encounter Gauss, [facility] 01/24/2019 T78.40xD Allergy, unspecified, subsequent encounter Gauss, [facility] 01/17/2019 E11.65 Type 2 diabetes mellitus with hyperglycemia Gauss, [facility] 01/17/2019 E03.9 Hypothyroidism, unspecified Gauss, [facility] 01/17/2019 T78.40xD Allergy, unspecified, subsequent encounter Gauss, Donte 01/17/2019 J44.9 Chronic obstructive pulmonary disease, unspecified Gauss, [facility] 01/17/2019 J40 Bronchitis, not specified as acute or chronic Gauss, Donte 01/17/2019 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 Gauss, [facility] 01/17/2019 E66.09 Other obesity due to excess calories Gauss, [facility] 01/17/2019 I11.9 Hypertensive heart disease without heart failure Gauss, Donte 01/10/2019 T78.40xD Allergy, unspecified, subsequent encounter Gauss, Donte 12/27/2018 T78.40xD Allergy, unspecified, subsequent encounter Donte Mckinney 12/20/2018 T78.40xD Allergy, unspecified, subsequent encounter Alex Mckinneyl 12/20/2018 E11.65 Type 2 diabetes mellitus with hyperglycemia Alex Mkcinneyl 12/20/2018 E03.9 Hypothyroidism, unspecified Alex Mckinneyl 12/20/2018 J44.9 Chronic obstructive pulmonary disease, unspecified Alex Mckinneyl 12/20/2018 J40 Bronchitis, not specified as acute or chronic Faye Donte 12/20/2018 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 Alex Mckinneyl 12/20/2018 E66.09 Other obesity due to excess calories Alex Mckinneyl 12/20/2018 I11.9 Hypertensive heart disease without heart failure Alex Mckinneyl 12/20/2018 E78.5 Hyperlipidemia, unspecified Alex Mckinneyl 12/20/2018 J44.1 Chronic obstructive pulmonary disease with (acute) Alex Mckinneyl exacerbation 12/20/2018 R06.02 Shortness of breath Faye Donte 12/20/2018 I34.0 Nonrheumatic mitral (valve) insufficiency Alex Mckinneyl 12/20/2018 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 TO MONITOR BP, CONT. LOW SALT DIET Discussed lifestyle factors and role of diet and excerns incontrol of disease and treatment goals and targets. Medication side effects and compliance issues addressed as indicated. The importance of ongoing self monitoring of BP and the symptoms of complications such as TIA, CVA and AMI reviewed. The importance of reporting changes in between visits and side effects stressed. monitoring of patient provided BP checks and laboratory tests related to medicationreviewed. Discussed lifestyle factors and role of diet and excerns in control of disease and treatment goals and targets. Medication side effects and compliance issues addressed as indicated. The importance of ongoing self monitoring of BP and the symptoms of complications such as TIA, CVA and AMI reviewed. The importance of reporting changes in between visits and side effects stressed. monitoring of patient provided BP checks and laboratory tests related to medication reviewed. poorly controlledReferral:Servando Disla MD, LgspogarkuH80.09 Other obesity due to excess caloriesComments:Discussed health effects of obesity and healthy diet choices. Effect on other diseases and interaction of dietary factors stressed. 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 The importance of routine monitoring of blood lipids and liver tests to managetreatment and avoid side effects were discussed. Usual follow up is 3 months for LFT and Lipid profile. Patient education including dietary guidelines and materials provided.N18.9 Chronic kidney disease, zrkcjvpvfisG14.65 Type 2 diabetes mellitus with hyperglycemiaComments:Continue with medication as directed. Continue with reduced carb diet. To continue with fingerstick monitoring Q Day Continue to follow reduced carbohydrate low fat diet. Exercise regularly. Needs annual blood sugar evaluation. Emphasized weight control to manage blood sugar manager intermediate.E03.9 Hypothyroidism, aazomkorjtiX32.9 Polyosteoarthritis, unspecifiedComments:Discussed treatment strategies including role of supplements such as glucosamine, regular exercise, external therapies such as warm water and various OTC medications including Tylenol and Capsin ointments. Discussed surgery and joint replacement role for management of advanced symptoms and options like joint injections of corticosteroids and hyaluronidase. Pt encouraged to seek further information onmedication side effects including increased stroke and heart attack risk and arthritis information from reliable sources such as [employer].E55.9 Vitamin D deficiency, rhulvrmuyseW98.9 Anemia, ulnwtdagfguL96.909 Unspecified asthma, uncomplicated Functional Status Description No Information Available Mental Status Description No Information Available Referrals Refer to Reason for Referral Status Appt Date Servando Disla MD Created [address] [place] [address] [phone] [facility] Sent [address] [place] [address] [phone] Servando Disla MD Created [address], [place] [id number] [phone] Denver Hudson MD Created [address] [place], [place] [address] [phone] Marcello Lino M.D. [facility] Closed 02/27/[address] [place] [address] [phone] Servando Disla MD Closed [facility] [place] [address] [phone]
--- OUTSIDE RECORDS SUMMARY | 2019-07-13 12:30 | XMS REPORT | Continuity of Care Document ---
:1935 External Reference #:[id number] Author Name Donte Mckinney (transmitted by agent of provider Yvette Cruz) Address [address] [place] [address] Problems Active Problems Provider Date Type 2 [...] Medications SIG Qnty Indications Ordering Date Provider Albuterol Sulfate Inhale The 75units J20.9 Donte Mckinney 05/15/2019 Contents Of One (2.5mg/3ML) 0.083% Vial Via Nebulizer Nebulizer Every 4 Hours as Needed Accu-Chek Soft-Clix test 4 times daily Donte [...] 10mg Tablets Triamcinolone 1 spray each 16.500gm Alex Mckinneyl 11/08/2017 Acetonide nostril twice 55mcg/Act daily Aerosol Pen Sturgis 1/2" dx e11.65 as 100units Donte Mckinney 06/29/2017 29G X directed 3x a day 12mm Misc injections Diabetic Shoes With as directed hx Donte Mckinney 01/04/2017 Inserts foot surgeries edema feet and ankles. calluses on feet. Accu-Chek Beth Plus dx e11.65 test 4 300units Donte Mckinney 09/15/2016 times daily Strips Accu-Chek Beth Test Fout Times 1units Alex Mckinneyl 09/15/2016 Device Daily DX E11.65 Syrings 316 Lenght 14 units in in the 100units Alex Mckinneyl 07/07/2016 By 31 Gauge morning dx e11.65 Wendy Allergy 1 PO qd prn 90tabs Donte Mckinney 05/05/2016 180mg Tablets Vitamin C Plus Alex Mckinneyl 05/05/2016 Echinacea 500-100mg Tablets Vitamin D3 High 1 by mouth every 90caps Alex Mckinneyl 05/05/2016 Potency day 1000Unit Capsules Meliza-Sequels Faye Donte 05/05/2016 65-25mg Tablets ER Calcium 500 + D Faye Donte 05/05/2016 [id number] Tablets Multivitamin Women Faye Donte 05/05/2016 50+ 50+ Tablets Clonidine HCL 1 by mouth three [...] 459.81 20-30 compression Walker with wheels and units Donte Mckinney 02/14/2013 seat dx 781.2 Tylenol 8 Hour as needed 100tabs M15.0 Donte Mckinney 10/11/2012 650mg Tablets ER Fish Oil bid Donte Mckinney 11/25/[address] Celestin /2 PO qd 90tabs Donte Mckinney 06/01/2005 20mg Tablets Singulair 1 by mouth every 90tabs Donte Mckinney 06/01/2005 10mg Tablets day Dulera 1 puff twice a day 3units Donte Mckinney 200-5mcg/Act Aerosol Azithromycin 1 tab on Wed Donte Mckinney 250mg and Fri Tablets Spiriva Respimat 2 puff daily 3units J44.9 Donte Mckinney 2.5mcg/Act Aerosol Torsemide in by mouth daily 90tabs Donte Mckinney 100mg Tablets Levalbuterol HCL four times a day 100units J20.9 Donte Mckinney dx pneumonia 0.63mg/3ML Nebulizer History Medications Amoxicillin/Clavulanate 1 by mouth 21tabs J44.1 Donte Mckinney 05/15/2019 - Potassium three times a 06/12/2019 500-125mg Tablets day Albuterol Sulfate as directed up 30ml J44.1 Donte Mckinney 05/15/2019 - 1.25mg/3ML Nebulizer to four times 05/15/2019 a day Medications Administered in Office Medication SIG Qnty Indications Ordering Provider Date B-12 Injection Donte Mckinney 02/21/2019 Injection B-12 Injection Nurse 02/21/2019 Injection H1N1 Administration-Use Donte Mckinney 05/28/2009 Injection PPD Injection Donte Mckinney 06/01/2005 PPD Injection Donte Mckinney 12/17/2004 Immunizations CPT Code Status Date Vaccine Lot # [id number] Given 05/16/2019 Pneumovax Polyvalent Inj Im Q2035 Given 03/21/2019 Influenza Virus (Quadrivalent)Splitvirus 3 Years Of Age And Older Q2035 Given 03/21/2019 Influenza Virus (Quadrivalent)Splitvirus 3 [id number] Years Of Age And Older 81888 Given 03/21/2019 Influenza Virus Vaccine, Quadrivalent, Split, Preservative Free Q2035 Given 04/11/2018 Influenza Virus (Quadrivalent)Splitvirus 3 [id number] Years Of Age And Older Q2036 Given 03/23/2017 Flulaval Q2035 Given 03/23/2017 Influenza Virus (Quadrivalent)Splitvirus 3 Years Of Age And Older Q2037 Given 04/07/2016 Influenza Vaccine (Fluvirin) 3 Years Of Age Or [id number] Older 74828 Given 05/21/2015 Pneumococcal Conjugate Vaccine 13 Valent For [id number] Intramuscular Use Q2035 Given 03/19/2015 Influenza Virus (Quadrivalent)Splitvirus 3 [id number] Years Of Age And Older Q2037 Given 03/13/2014 Influenza Vaccine (Fluvirin) 3 Years Of Age Or Older Q2038 Given 04/04/2013 Influenza Vaccine (Fluzone) Administered Age 3 And Older 71527 Given 04/04/2013 Influenza Vaccine [id number] Q2037 Given 04/26/2012 Influenza Vaccine (Fluvirin) 3 Years Of Age Or [id number] Older Q2036 Given 04/15/2011 Flulaval [id number] 47951 Given 06/30/2010 Zostavax [id number] 74918 Given 04/15/2010 Influenza Vaccine [id number] 31851 Given 12/13/2009 Pneumovax Polyvalent Inj Im [id number] 92515 Given 04/23/2009 Influenza Vaccine 19195 Given 04/23/2009 Influenza Vaccine [id number] 87574 Given 04/17/2008 Influenza Vaccine [id number] 50663 Given 04/12/2007 Influenza Vaccine 48182 32844 Given 04/16/2006 Influenza Vaccine 18102 Given 04/16/2006 Influenza Vaccine 22186 82854 Given 05/05/2005 Influenza Vaccine [id number] 65036 Given 05/05/2005 Influenza Vaccine 40974 Given 01/11/2005 Tetanus And Diptheria Toxiods [id number] 60689 Given 12/30/2004 [place] [address] Given 07/19/1991 Tetanus And Diptheria Toxiods Vital Signs Date Vital Result Comment 06/12/2019 11:54am BP Systolic 148 mmHg BP Diastolic 90 mmHg Heart Rate 95 /min Respiratory Rate 22 /min Weight 180.00 lb 05/25/2019 11:25am BP Systolic 182 mmHg BP Diastolic 88 mmHg Heart Rate 100 /min Respiratory Rate 22 /min Weight 183.00 lb O2 % BldC Oximetry 96 % Results Test Acquired Date Facility Test Result H/L Range Note General Health 05/15/2019 [facility] TSH 0.30 mIU/L Low 0.40-4.50 1 Panel [facility] [address] [place], [place] [id number] [phone] T4, Free 1.4 ng/dL Normal 0.8-1.8 CBC (Includes 05/15/2019 [facility] White 14.9 High 3.8-10.8 Diff/PLT) [address] Blood Cell Thousand/[place] [address] Count [phone] Red Blood Cell Count 3.48 Million/uL Low 3.80-5.10 Hemoglobin 10.3 g/dL Low 11.7-15.5 Hematocrit 30.4 % Low 35.0-45.0 MCV 87.4 fL Normal 80.0-100.0 MCH 29.6 pg Normal 27.0-33.0 MCHC 33.9 g/dL Normal 32.0-36.0 RDW 14.2 % Normal 11.0-15.0 Platelet Count 390 Thousand/uL Normal 140-400 MPV 9.2 fL Normal 7.5-12.5 Absolute Neutrophils 94518 cells/uL High 4023-7420 Absolute Lymphocytes 745 cells/uL Low 850-3900 Absolute Monocytes 313 cells/uL Normal 200-950 Absolute Eosinophils 0 cells/uL Low 15-500 Absolute Basophils 30 cells/uL Normal 0-200 Neutrophils 92.7 % High 38-80 Lymphocytes 5.0 % Low 15-49 Monocytes 2.1 % Normal 0-13 Eosinophils 0.0 % Normal 0-8 Basophils 0.2 % Normal 0-2 Comprehensive Metabolic 05/15/2019 [facility] Glucose 198 mg/dL High 65-139 2 Panel [address] [place], [place] [id number] [phone] Urea Nitrogen (BUN) 72 mg/dL High 7-25 Creatinine 1.83 mg/dL High 0.60-0.88 3 eGFR Non-Afr. [place] 25 mL/min/1.73m2 Low > Or = 60 [...] U/L High 6-29 Laboratory test 05/15/2019 [facility] Cortisone, Serum 0.8 g/dL 4 finding [address] [id number] [phone] Enhanced PDF Report [id number] SEE IMAGE CMP W/GFR 04/11/2019 [facility] Sodium 140 mmol/L 135-146 5 [address] [place], [place] [id number] [phone] Potassium 3.7 mmol/L 3.5-5.3 Chloride 102 mmol/L [...] 1.9-3.7 A/G Ratio 1.5 1.0-2.5 Egfr Non-Afr. [place] 24 ML/MIN/1.73M2 Low > Or = 60 [...] 1.9-3.7 A/G Ratio 1.5 1.0-2.5 Egfr Non-Afr. [place] 24 ML/MIN/1.73M2 Low > Or = 60 Egfr 28 ML/MIN/1.73M2 Low > Or = 60 CBC W/ Diff & PLT 04/11/2019 [facility] WBC 11.3 thous/L High 3.8 -10.8 [address] [place], [place] [id number] [phone] RBC 4.03 mill/L 3.80-5.10 Hemoglobin 11.6 g/dL Low 11.7-15.5 Hematocrit 35.3 % 35.0-45.0 MCV 87.6 FL 80.0-100.0 MCH 28.8 pg 27.0-33.0 MCHC 32.9 g/dL 32.0-36.0 RDW 14.3 % 11.0-15.0 Platelet Count 406 thous/L High 140-400 MPV 8.7 FL 7.5-12.5 Neutrophils,Absolute 6850 cells/L [phone] Bands,Absolute PENDING Metamyelocytes,Absolute PENDING Myelocytes,Absolute PENDING Promyelocytes,Absolute [...] MPV 8.7 FL 7.5-12.5 Neutrophils,Absolute 6850 cells/L 1313-8222 Lymphocytes,Absolute 3640 cells/L 850-3900 Monocytes,Absolute 630 cells/L 200-950 Eosinophils,Absolute 60 cells/L 15-500 Basophils,Absolute 60 cells/L 0-200 Total Neutrophils,% 61.2 % 40-75 Total Lymphocytes,% 32.2 % 12-47 Monocytes,% 5.6 % 4-12 Eosinophils,% 0.5 % 0-4 Basophils,% 0.5 % 0-1 13 Lipid Panel 04/11/2019 [facility] Cholesterol 173 mg/dL <199 [address] [place], [place] [id number] [phone] HDL Cholesterol 56 mg/dL >50 Cholesterol/HDL Ratio [...] <130 19 Laboratory test finding 04/11/2019 [facility] Cortisol,A.M. PENDING [address] [facility] [place] [address] [phone] Vitamin D,25-Hydroxy,Total,Immunoassay 32 NG/ML 30-100 20 Hemoglobin A1c 6.6 % High 0-5.6 21 TSH & T4,Free 04/11/2019 [facility] TSH 0.31 mIU/L Low 0.40-4.50 22 6 [facility] [address] [place], [place] [id number] [phone] T4,Free 1.4 ng/dL 0.8-1.8 Laboratory test finding 04/11/2019 [facility] TSH 0.31 mIU/L Low 0.40-4.50 23 6 [facility] [place], [place] [id number] [phone] T4,Free 1.4 ng/dL 0.8-1.8 Clinical PDF Report [id number] SEE IMAGE Hemoglobin A1c 6.6 % High [...] approximately 13% higher for people identified as -[place] Korean. 4 Reference Range: AM: 1.2-3.5 PM: 0.6-2.8 This test was developed and its analytical performance characteristics have been determined by [facility]. It has not been cleared or approved by FDA. This assay has been validated pursuant to the CLIA regulations and is used for clinical purposes. 5 FASTING 6 Reference range for high altitude clients: 18-30 mmol/L 7 GLUCOSE REFERENCE RANGE BASED ON FASTING SPECIMEN. 8 The upper reference limit for Creatinine is approximately 13% higher for people identified as -[place] Korean. 9 Reference range for high altitude clients: 18-30 mmol/L 10 GLUCOSE REFERENCE RANGE BASED ON FASTING SPECIMEN. 11 The upper reference limit for Creatinine is approximately 13% higher for people identified as -[place] Korean. 12 Relative blood cell counts (%) should [...] the estimation of LDL-C. Danny SS et al.MARIAELENA.2013;310(19):0482-6120 Desirable range <100 mg/dL for primary prevention; [...] the estimation of LDL-C. Danny SS et al.MARIAELENA.2013;310(19):7826-6712 Desirable range <100 mg/dL for primary prevention; [...] Vit D, (D2,D3),LC/MS/MS is recommended: Order code 10612 (patients >2 yrs). 21 For someone without [...] Vit D, (D2,D3),LC/MS/MS is recommended: Order code 26455 (patients >2 yrs). 27 REFERENCE RANGE AM: 1-3 DAYS OLD: PREMATURE INFANTS (31-35 WEEKS): < OR = 15.0 MCG/DL TERM INFANTS: < OR = 14.0 MCG/DL 4 DAYS-1 MONTH: NOT ESTABLISHED 1 MONTH-11 MONTHS: 3.0-23.0 MCG/DL 1 YEAR-17 YEARS: 3.0-25.0 MCG/DL 18 YEARS OR OLDER: 4.0-22.0 MCG/DL Procedures Date Code Description Status 06/13/2019 35352 Therapeutic,Prophylactic Intramuscular Inj Completed 05/30/2019 62634 Therapeutic,Prophylactic Intramuscular Inj Completed 04/18/2019 76494 Therapeutic,Prophylactic Intramuscular Inj Completed 04/18/2019 54744 Non-Invcorrotid/Comp /Bilat Study Completed 04/17/2019 79124 Echocardiography Completed 04/11/2019 18377 Spirometry Graphic Record/Max Voluntary Vent Completed 04/11/2019 22266 EKG-Tracing & Report Completed 04/10/2019 08940 EKG-Tracing & Report Completed 04/04/2019 19580 Therapeutic,Prophylactic Intramuscular Inj Completed 03/21/2019 44873 Therapeutic,Prophylactic Intramuscular Inj Completed 02/07/2019 83990 Therapeutic,Prophylactic Intramuscular Inj Completed 01/24/2019 06068 Therapeutic,Prophylactic Intramuscular Inj Completed 01/10/2019 98846 Therapeutic,Prophylactic Intramuscular Inj Completed 12/27/2018 00825 Therapeutic,Prophylactic Intramuscular Inj Completed 03/11/2017 472132430 Bone Mineral Density Test Completed 07/22/2015 [id number] Mammogram Completed 05/13/2007 49619566 Colonoscopy Completed Medical Devices Description No Information Available Encounters Type Date Location Provider Dx Diagnosis Office Visit 06/12/2019 12:00p Main Office Donte [...] deficiency, unspecified Assessments Date Code Description Provider 06/13/2019 T78.40xD Allergy, unspecified, subsequent encounter Gauss, [...] Donte 06/12/2019 M54.5 Low back pain Gauss, Donte 06/12/2019 J44.0 Chronic obstructive pulmonary disease with acute Gauss, Donte lower respiratory infection 05/30/2019 T78.40xD Allergy, unspecified, subsequent encounter Gauss, Donte 05/25/2019 R06.02 Shortness of breath Pradeepuss, Donte 05/25/2019 J44.1 Chronic obstructive pulmonary disease with (acute) Gauss, Donte exacerbation 05/25/2019 I65.23 Occlusion and stenosis of bilateral carotid arteries Gauss , Donte 05/25/2019 T78.40xD Allergy, unspecified, subsequent encounter Gauss, Donte 05/25/2019 E78.5 Hyperlipidemia, unspecified Gauss, Donte 05/25/2019 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 Gauss, Donte 05/25/2019 E66.09 Other obesity due to excess calories Gauss, Donte 05/25/2019 I11.9 Hypertensive heart disease without heart failure Gauss, Donte 05/25/2019 E11.65 Type 2 diabetes mellitus with hyperglycemia Gauss, Donte 05/25/2019 E03.9 Hypothyroidism, unspecified Gauss, Donte 05/25/2019 J40 Bronchitis, not specified as acute or chronic [facility], [facility] 05/25/2019 J45.30 Mild persistent asthma, uncomplicated [facility], [facility] 05/16/2019 T78.40xD Allergy, unspecified, subsequent encounter [facility], [facility] 05/15/2019 J44.1 Chronic obstructive pulmonary disease with (acute) [facility], [facility] exacerbation 05/15/2019 T78.40xD Allergy, unspecified, subsequent encounter [facility], [facility] 05/15/2019 I65.23 Occlusion and stenosis of bilateral carotid arteries Gauss , [facility] 05/15/2019 E78.2 Mixed hyperlipidemia Gauss, [facility] 05/15/2019 R06.02 Shortness of breath [facility], [facility] 05/15/2019 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 [facility], [facility] 05/15/2019 E66.09 Other obesity due to excess calories [facility], [facility] 05/15/2019 I11.9 Hypertensive heart disease without heart failure [facility], [facility] 04/24/2019 R26.89 Other abnormalities of gait and mobility [facility], [facility] 04/24/2019 T78.40xD Allergy, unspecified, subsequent encounter [facility], [facility] 04/24/2019 I65.23 Occlusion and stenosis of bilateral carotid arteries [facility] , [facility] 04/24/2019 I34.0 Nonrheumatic mitral (valve) insufficiency [facility], [facility] 04/24/2019 E78.2 Mixed hyperlipidemia [facility], [facility] 04/24/2019 R06.02 Shortness of breath [facility], [facility] 04/24/2019 J44.9 Chronic obstructive pulmonary disease, unspecified Gauss, [facility] 04/24/2019 J44.1 Chronic obstructive pulmonary disease with (acute) Gauss, [facility] exacerbation 04/18/2019 T78.40xD Allergy, unspecified, subsequent encounter [facility] 04/18/2019 I65.23 Occlusion and stenosis of bilateral carotid arteries [facility] , [facility] 04/17/2019 I34.0 Nonrheumatic mitral (valve) insufficiency [facility], [facility] 04/11/2019 E78.2 Mixed hyperlipidemia Gauss, [facility] 04/11/2019 R06.02 Shortness of breath Gauss, [facility] 04/11/2019 J44.9 Chronic obstructive pulmonary disease, unspecified Gauss, [facility] 04/11/2019 R05 Cough Gauss, [facility] 04/10/2019 E78.2 Mixed hyperlipidemia Gauss, [facility] 04/04/2019 T78.40xD Allergy, unspecified, subsequent encounter Gauss, [facility] 03/21/2019 Z23 Encounter for immunization [place], [facility] 03/21/2019 T78.40xD Allergy, unspecified, subsequent encounter Gauss, [facility] 02/21/2019 E11.65 Type 2 diabetes mellitus with hyperglycemia Gauss, [facility] 02/14/2019 R42 Dizziness and giddiness [facility], [facility] 02/14/2019 T78.40xD Allergy, unspecified, subsequent encounter Gauss, [facility] 02/14/2019 E11.65 Type 2 diabetes mellitus with hyperglycemia [facility], [facility] 02/14/2019 E03.9 Hypothyroidism, unspecified Gauss, [facility] 02/14/2019 J44.9 Chronic obstructive pulmonary disease, unspecified [facility], [facility] 02/14/2019 J40 Bronchitis, not specified as acute or chronic Gauss, [facility] 02/14/2019 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 lower respiratory infection 02/14/2019 I73.9 Peripheral vascular disease, unspecified Gauss, [facility] 02/14/2019 I65.23 Occlusion and stenosis of bilateral carotid arteries Gauss , [facility] 02/14/2019 R26.89 Other abnormalities of gait and mobility Gauss, [facility] 02/07/2019 T78.40xD Allergy, unspecified, subsequent encounter Gauss, [facility] 01/24/2019 T78.40xD Allergy, unspecified, subsequent encounter Gauss, [facility] 01/17/2019 E11.65 Type 2 diabetes mellitus with hyperglycemia [facility], [facility] 01/17/2019 E03.9 Hypothyroidism, unspecified Gauss, [facility] 01/17/2019 T78.40xD Allergy, unspecified, subsequent encounter Gauss, Donte 01/17/2019 J44.9 Chronic obstructive pulmonary disease, unspecified Gauss, Donte 01/17/2019 J40 Bronchitis, not specified as acute or chronic Gauss, Donte 01/17/2019 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 Gauss, Donte 01/17/2019 E66.09 Other obesity due to excess calories Gauss, Donte 01/17/2019 I11.9 Hypertensive heart disease without heart failure Gauss, Donte 01/10/2019 T78.40xD Allergy, unspecified, subsequent encounter Gauss, Donte 12/27/2018 T78.40xD Allergy, unspecified, subsequent encounter Gauss, Donte 12/20/2018 T78.40xD Allergy, unspecified, subsequent encounter Gauss, Donte 12/20/2018 E11.65 Type 2 diabetes mellitus with hyperglycemia Faye, Donte 12/20/2018 E03.9 Hypothyroidism, unspecified Gauss, Donte 12/20/2018 J44.9 Chronic obstructive pulmonary disease, unspecified Gauss, Donte 12/20/2018 J40 Bronchitis, not specified as acute or chronic Gauss, Donte 12/20/2018 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 Gauss, [facility] 12/20/2018 E66.09 Other obesity due to excess calories Pradeepuss, Donte 12/20/2018 I11.9 Hypertensive heart disease without heart failure Gauss, Donte 12/20/2018 E78.5 Hyperlipidemia, unspecified Gauss, Donte 12/20/2018 J44.1 Chronic obstructive pulmonary disease with (acute) [facility] Donte exacerbation 12/20/2018 R06.02 Shortness of breath Faye, Donte 12/20/2018 I34.0 Nonrheumatic mitral (valve) insufficiency Faye, Donte 12/20/2018 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 Faye Donte 12/20/2018 E55.9 Vitamin D deficiency, unspecified Donte Mckinney Plan of Treatment Future Appointment(s):06/27/2019 9:00 am - Nurse at Main [facility]5806/12/2019 - Dariela Mckinney15.9 Polyosteoarthritis, unspecifiedComments:Discussed treatment strategies including role of [...] from reliable sources such as [employer].Referral:[facility], Orthopedic ModgexqjvY51.1 Chronic obstructive pulmonary disease with (acute) jtrsqhbjrbikS67.23 Occlusion and stenosis of bilateral carotid arteriesComments: Discussed role of life style choices in dietary fats and exercise plays on evolution of [place] disease and importance of controlling cholesterol. Medications role and side effects in disease progression prevention discussed and need for compliance with prescribed treatment. Follow up testing for progression such as ultrasound surveillance mdpoaropD08.5 Hyperlipidemia, unspecifiedComments:Counselled on role of diet and excersize and importance to keep compliance with medication if prescribed and side effects. The importance of routine monitoring of blood lipids and liver tests to managetreatment and avoid side effects were discussed. Usual follow up is 3 months for LFT and Lipid profile. Patient education including dietary guidelines and materials provided.E27.5 Adrenomedullary zajffpkuecaueQ51.09 Other obesity due to excess caloriesComments:Discussed health effects of obesity and healthy diet choices. Effect on other diseases and interaction of dietary factors stressed. Weight loss options discussed and information on community resources,various weight loss strategies and popular diets reviewed.I11.9 Hypertensive heart disease without heart failureComments:CONT. TO [...] checks and laboratory tests related to medication reviewed.J44.9 Chronic obstructive pulmonary disease, unspecifiedComments: Discussed importance of excersize and avoidance of all smoke. Enviromental factors that can spark exacerbations reviewed. The necessity of reporting any changes in condition, early intervention in exacerbations and proper useand the importance of compliance with medications. Reports if applicable of home care providers, and equipment suppliers and Respiratory Therapy reviewed.M54.5 Low back painComments:Methods to avoid reinjury, safe lifting and posture discussed. Importance of routine matinence and back strengthening excersizes addressed. Back excersizes reviewed and pt imformation provided and discussed. Physical Therapy ordered and treatmentplan and course of therapy reviewed as applicableMethodsto avoid reinjury, safe lifting and posture discussed. Importance of routine matinence and back strengthening excersizes addressed. Back excersizes reviewed and pt imformation provided and discussed. Physical Therapy ordered and treatmentplan and course of therapy reviewed as psxljnamahZ87.0 Chronic obstructive pulmonary disease with acute lower respiratory infectionComments:Discussed treatment symptoms, prevention and when to contact for progression of symptoms. Cautioned to seek immediate help if breathing worsens. Appropriate medications, use and side effects noted as well as correct use of MDI and bronchodilators. Functional Status Description No Information Available Mental Status Description No Information Available Referrals Refer to Reason for Referral Status Appt Date [facility] Sent [address] [place] [address] [phone] Created Servando Disla MD Created [address] [place] [address] [phone] Denver Hudson MD Created [address] [place], [place] [id number] [phone] Marcello Lino M.D. [facility] Closed 02/27/[address] [place] [address] [phone] Servando Disla MD Closed [facility] [place] [address] [phone]
--- OUTSIDE RECORDS SUMMARY | 2019-07-13 12:30 | XMS REPORT | Continuity of Care Document ---
:1935 External Reference #:[id number] Author Name Donte Mckinney (transmitted by agent of provider Arely Jefferson) Address [address] [place] [address] Problems Active Problems Provider Date Type 2 [...] Acetonide nostril twice 55mcg/Act daily Aerosol Pen [place] 1/2" dx e11.65 as 100units Donte Mckinney [...] Calcium 500 + D Alex Mckinneyl 05/05/2016 016-974qt-Alky Tablets Meliza-Sequels Alex Mckinneyl 05/05/2016 65-25mg Tablets [...] 459.81 20-30 compression Walker with wheels and [facility] Donte Mckinney 02/14/2013 seat dx 781.2 [...] CPT Code Status Date Vaccine Lot # [id number] Given 05/16/2019 Pneumovax Polyvalent Inj Im Q2035 Given 03/21/2019 Influenza Virus (Quadrivalent)Splitvirus 3 Years Of Age And Older Q2035 Given 03/21/2019 Influenza Virus (Quadrivalent)Splitvirus 3 [id number] Years Of Age And Older 06569 Given 03/21/2019 Influenza Virus Vaccine, Quadrivalent, Split, Preservative Free Q2035 Given 04/11/2018 Influenza Virus (Quadrivalent)Splitvirus 3 [id number] Years Of Age And Older Q2036 Given 03/23/2017 Flulaval Q2035 Given 03/23/2017 Influenza Virus (Quadrivalent)Splitvirus 3 Years Of Age And Older Q2037 Given 04/07/2016 Influenza Vaccine (Fluvirin) 3 Years Of Age Or [id number] Older 22850 Given 05/21/2015 Pneumococcal Conjugate Vaccine 13 Valent For [id number] Intramuscular Use Q2035 Given 03/19/2015 Influenza Virus (Quadrivalent)Splitvirus 3 [id number] Years Of Age And Older Q2037 Given 03/13/2014 Influenza Vaccine (Fluvirin) 3 Years Of Age Or Older Q2038 Given 04/04/2013 Influenza Vaccine (Fluzone) Administered Age 3 And Older 06616 Given 04/04/2013 Influenza Vaccine [id number] Q2037 Given 04/26/2012 Influenza Vaccine (Fluvirin) 1 Years Of Age Or [id number] Older Q2036 Given 04/15/2011 Flulaval [id number] 64532 Given 06/30/2010 Zostavax [id number] 06512 Given 04/15/2010 Influenza Vaccine [id number] 19659 Given 12/13/2009 Pneumovax Polyvalent Inj Im [id number] 92647 Given 04/23/2009 Influenza Vaccine 17603 Given 04/23/2009 Influenza Vaccine [id number] 43305 Given 04/17/2008 Influenza Vaccine [id number] 79162 Given 04/12/2007 Influenza Vaccine [id number] 59819 Given 04/16/2006 Influenza Vaccine 17886 Given 04/16/2006 Influenza Vaccine 84234 28506 Given 05/05/2005 Influenza Vaccine [id number] 58262 Given 05/05/2005 Influenza Vaccine 06996 Given 01/11/2005 Tetanus And Diptheria Toxiods [id number] 64449 Given 12/30/2004 [place] [address] Given 07/19/1991 Tetanus And Diptheria Toxiods Vital [...] H/L Range Note General Health 05/15/2019 [facility] TSH 0.30 mIU/L Low 0.40-4.50 1 Panel [facility] [address] [place], [place] [id number] [phone] T4, Free 1.4 ng/dL Normal 0.8-1.8 CBC (Includes 05/15/2019 [facility] White 14.9 High 3.8-10.8 Diff/PLT) [address] Blood Cell Thousand/[place] [address] Count [phone] Red Blood Cell Count 3.48 Million/uL Low 3.80-5.10 Hemoglobin 10.3 g/dL Low 11.7-15.5 Hematocrit 30.4 % Low 35.0-45.0 MCV 87.4 fL Normal 80.0-100.0 MCH 29.6 pg Normal 27.0-33.0 MCHC 33.9 g/dL Normal 32.0-36.0 RDW 14.2 % Normal 11.0-15.0 Platelet Count 390 Thousand/uL Normal 140-400 MPV 9.2 fL Normal 7.5-12.5 Absolute Neutrophils 48002 cells/uL High 8255-7743 Absolute Lymphocytes 745 cells/uL Low 850-3900 Absolute Monocytes 313 cells/uL Normal 200-950 Absolute Eosinophils 0 cells/uL Low 15-500 Absolute Basophils 30 cells/uL Normal 0-200 Neutrophils 92.7 % High 38-80 Lymphocytes 5.0 % Low 15-49 Monocytes 2.1 % Normal 0-13 Eosinophils 0.0 % Normal 0-8 Basophils 0.2 % Normal 0-2 Comprehensive Metabolic 05/15/2019 [facility] Glucose 198 mg/dL High 65-139 2 Panel [address] [place], [place] [address] [phone] Urea Nitrogen (BUN) 72 mg/dL High 7-25 Creatinine 1.83 mg/dL High 0.60-0.88 3 eGFR Non-Afr. Romanian 25 mL/min/1.73m2 Low > Or = 60 [...] U/L High 6-29 Laboratory test 05/15/2019 [facility] Cortisone, Serum 0.8 g/dL 4 finding [address] [place] [address] [phone] Enhanced PDF Report [id number] SEE IMAGE CMP W/GFR 04/11/2019 [facility] Sodium 140 mmol/L 135-146 5 [address] [place], [place] [address] [phone] Potassium 3.7 mmol/L 3.5-5.3 Chloride 102 mmol/L [...] 1.9-3.7 A/G Ratio 1.5 1.0-2.5 Egfr Non-Afr. Romanian 24 ML/MIN/1.73M2 Low > Or = 60 [...] 1.9-3.7 A/G Ratio 1.5 1.0-2.5 Egfr Non-Afr. Romanian 24 ML/MIN/1.73M2 Low > Or = 60 Egfr 28 ML/MIN/1.73M2 Low > Or = 60 CBC W/ Diff & PLT 04/11/2019 [facility] WBC 11.3 thous/L High 3.8 -10.8 [address] [place] [address] [phone] RBC 4.03 mill/L 3.80-5.10 Hemoglobin 11.6 g/dL Low 11.7-15.5 Hematocrit 35.3 % 35.0-45.0 MCV 87.6 FL 80.0-100.0 MCH 28.8 pg 27.0-33.0 MCHC 32.9 g/dL 32.0-36.0 RDW 14.3 % 11.0-15.0 Platelet Count 406 thous/L High 140-400 MPV 8.7 FL 7.5-12.5 Neutrophils,Absolute 6850 cells/L 0545-3961 Bands,Absolute PENDING Metamyelocytes,Absolute PENDING Myelocytes,Absolute PENDING Promyelocytes,Absolute [...] MPV 8.7 FL 7.5-12.5 Neutrophils,Absolute 6850 cells/L [phone] Lymphocytes,Absolute 3640 cells/L 850-3900 Monocytes,Absolute 630 cells/L 200-950 Eosinophils,Absolute 60 cells/L 15-500 Basophils,Absolute 60 cells/L 0-200 Total Neutrophils,% 61.2 % 40-75 Total Lymphocytes,% 32.2 % 12-47 Monocytes,% 5.6 % 4-12 Eosinophils,% 0.5 % 0-4 Basophils,% 0.5 % 0-1 13 Lipid Panel 04/11/2019 [facility] Cholesterol 173 mg/dL <199 [address] [place] [address] [phone] HDL Cholesterol 56 mg/dL >50 Cholesterol/HDL Ratio [...] <130 19 Laboratory test finding 04/11/2019 [facility] Cortisol,A.M. PENDING [address] [place], [place] [id number] [phone] Vitamin D,25-Hydroxy,Total,Immunoassay 32 NG/ML 30-100 20 Hemoglobin A1c 6.6 % High 0-5.6 21 TSH & T4,Free 04/11/2019 [facility] TSH 0.31 mIU/L Low 0.40-4.50 22 [address] [place], [place] [address] [phone] T4,Free 1.4 ng/dL 0.8-1.8 Laboratory test finding 04/11/2019 [facility] TSH 0.31 mIU/L Low 0.40-4.50 23 [address] [place], [place] [address] [phone] T4,Free 1.4 ng/dL 0.8-1.8 Clinical PDF Report [id number] SEE IMAGE Hemoglobin A1c 6.6 % High [...] approximately 13% higher for people identified as -Romanian. 4 Reference Range: AM: 1.2-3.5 PM: 0.6-2.8 This test was developed and its analytical performance characteristics have been determined by [facility]. It has not been cleared or approved by FDA. This assay has been validated pursuant to the CLIA regulations and is used for clinical purposes. 5 FASTING 6 Reference range for high altitude clients: 18-30 mmol/L 7 GLUCOSE REFERENCE RANGE BASED ON FASTING SPECIMEN. 8 The upper reference limit for Creatinine is approximately 13% higher for people identified as -Romanian. 9 Reference range for high altitude clients: 18-30 mmol/L 10 GLUCOSE REFERENCE RANGE BASED ON FASTING SPECIMEN. 11 The upper reference limit for Creatinine is approximately 13% higher for people identified as -Romanian. 12 Relative blood cell counts (%) should [...] the estimation of LDL-C. Danny SS et al.MARIAELENA.2013;310(19):6062-7070 Desirable range <100 mg/dL for primary prevention; [...] the estimation of LDL-C. Danny SS et al.MARIAELENA.2013;310(19):7043-2334 Desirable range <100 mg/dL for primary prevention; [...] Vit D, (D2,D3),LC/MS/MS is recommended: Order code 26066 (patients >2 yrs). 21 For someone without [...] Vit D, (D2,D3),LC/MS/MS is recommended: Order code 82353 (patients >2 yrs). 27 REFERENCE RANGE AM: 1-3 DAYS OLD: PREMATURE INFANTS (31-35 WEEKS): < OR = 15.0 MCG/DL TERM INFANTS: < OR = 14.0 MCG/DL 4 DAYS-1 MONTH: NOT ESTABLISHED 1 MONTH-11 MONTHS: 3.0-23.0 MCG/DL 1 YEAR-17 YEARS: 3.0-25.0 MCG/DL 18 YEARS OR OLDER: 4.0-22.0 MCG/DL Procedures Date Code Description Status 06/13/2019 90573 Therapeutic,Prophylactic Intramuscular Inj Completed 05/30/2019 55174 Therapeutic,Prophylactic Intramuscular Inj Completed 04/18/2019 70269 Therapeutic,Prophylactic Intramuscular Inj Completed 04/18/2019 72272 Non-Invcorrotid/Comp /Bilat Study Completed 04/17/2019 65812 Echocardiography Completed 04/11/2019 66694 Spirometry Graphic Record/Max Voluntary Vent Completed 04/11/2019 29525 EKG-Tracing & Report Completed 04/10/2019 60918 EKG-Tracing & Report Completed 04/04/2019 52813 Therapeutic,Prophylactic Intramuscular Inj Completed 03/21/2019 66999 Therapeutic,Prophylactic Intramuscular Inj Completed 02/07/2019 57824 Therapeutic,Prophylactic Intramuscular Inj Completed 01/24/2019 51131 Therapeutic,Prophylactic Intramuscular Inj Completed 01/10/2019 25065 Therapeutic,Prophylactic Intramuscular Inj Completed 03/11/2017 366204648 Bone Mineral Density Test Completed 07/22/2015 77767879 Mammogram Completed 05/13/2007 55254497 Colonoscopy Completed Medical Devices Description No Information [...] Gauss, Donte 06/20/2019 E03.9 Hypothyroidism, unspecified Gauss, [facility] 06/20/2019 M15.9 Polyosteoarthritis, unspecified Gauss, [facility] 06/20/2019 E55.9 Vitamin D deficiency, unspecified Gauss, [facility] 06/20/2019 D64.9 Anemia, unspecified Gauss, [facility] 06/20/2019 J45.909 Unspecified asthma, uncomplicated Gauss, [facility] 06/13/2019 T78.40xD Allergy, unspecified, subsequent encounter Gauss, Donte 06/12/2019 M15.9 Polyosteoarthritis, unspecified Gauss, [facility] 06/12/2019 J44.1 Chronic obstructive pulmonary disease with (acute) Gauss, Donte exacerbation 06/12/2019 I65.23 Occlusion and stenosis of bilateral carotid arteries Gauss , Donte 06/12/2019 E78.5 Hyperlipidemia, unspecified Gauss, Donte 06/12/2019 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 Gauss, [facility] 06/12/2019 E66.09 Other obesity due to excess calories Gauss, Donte 06/12/2019 I11.9 Hypertensive heart disease without heart failure Gauss, Donte 06/12/2019 J44.9 Chronic obstructive pulmonary disease, unspecified Gauss, Donte 06/12/2019 M54.5 Low back pain Gauss, [facility] 06/12/2019 J44.0 Chronic obstructive pulmonary disease with acute Gauss, Donte lower respiratory infection 05/30/2019 T78.40xD Allergy, unspecified, subsequent encounter Gauss, Donte 05/25/2019 R06.02 Shortness of breath Gauss, Donte 05/25/2019 J44.1 Chronic obstructive pulmonary disease with (acute) Gauss, Donte exacerbation 05/25/2019 I65.23 Occlusion and stenosis of bilateral carotid arteries Gauss , [facility] 05/25/2019 T78.40xD Allergy, unspecified, subsequent encounter [facility], [facility] 05/25/2019 E78.5 Hyperlipidemia, unspecified Gauss, [facility] 05/25/2019 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 Gauss, [facility] 05/25/2019 E66.09 Other obesity due to excess calories [facility], [facility] 05/25/2019 I11.9 Hypertensive heart disease without heart failure Gauss, [facility] 05/25/2019 E11.65 Type 2 diabetes mellitus with hyperglycemia [facility], [facility] 05/25/2019 E03.9 Hypothyroidism, unspecified [facility], [facility] 05/25/2019 J40 Bronchitis, not specified as acute or chronic [facility], [facility] 05/25/2019 J45.30 Mild persistent asthma, uncomplicated [facility], [facility] 05/16/2019 T78.40xD Allergy, unspecified, subsequent encounter 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 04/24/2019 I65.23 Occlusion and stenosis of bilateral carotid arteries [facility] 04/24/2019 I34.0 Nonrheumatic mitral (valve) insufficiency Gauss, [facility] 04/24/2019 E78.2 Mixed hyperlipidemia Gauss, [facility] 04/24/2019 R06.02 Shortness of breath Gauss, [facility] 04/24/2019 J44.9 Chronic obstructive pulmonary disease, unspecified Gauss, [facility] 04/24/2019 J44.1 Chronic obstructive pulmonary disease with (acute) Gauss, Donte exacerbation 04/18/2019 T78.40xD Allergy, unspecified, subsequent encounter Gauss, [facility] 04/18/2019 I65.23 Occlusion and stenosis of bilateral carotid arteries Gauss , [facility] 04/17/2019 I34.0 Nonrheumatic mitral (valve) insufficiency Gauss, [facility] 04/11/2019 E78.2 Mixed hyperlipidemia Gauss, [facility] 04/11/2019 R06.02 Shortness of breath Gauss, [facility] 04/11/2019 J44.9 Chronic obstructive pulmonary disease, unspecified Gauss, [facility] 04/11/2019 R05 Cough Gauss, [facility] 04/10/2019 E78.2 Mixed hyperlipidemia Gauss, [facility] 04/04/2019 T78.40xD Allergy, unspecified, subsequent encounter Gauss, [facility] 03/21/2019 Z23 Encounter for immunization [facility], [facility] 03/21/2019 T78.40xD Allergy, unspecified, subsequent encounter Gauss, [facility] 02/21/2019 E11.65 Type 2 diabetes mellitus with hyperglycemia [facility], [facility] 02/14/2019 R42 Dizziness and giddiness [facility], [facility] 02/14/2019 T78.40xD Allergy, unspecified, subsequent encounter [facility], [facility] 02/14/2019 E11.65 Type 2 diabetes mellitus with hyperglycemia [facility], [facility] 02/14/2019 E03.9 Hypothyroidism, unspecified Gauss, [facility] 02/14/2019 J44.9 Chronic obstructive pulmonary disease, unspecified Gauss, [facility] 02/14/2019 J40 Bronchitis, not specified as acute or chronic Gauss, [facility] 02/14/2019 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 [facility], [facility] 02/14/2019 E66.09 Other obesity due to excess calories Gauss, [facility] 02/14/2019 I11.9 Hypertensive heart disease without heart failure Gauss, [facility] 02/14/2019 J45.30 Mild persistent asthma, uncomplicated Gauss, [facility] 02/14/2019 M54.5 Low back pain Gauss, [facility] 02/14/2019 J44.0 Chronic obstructive pulmonary disease [...] Appointment(s):07/26/2019 9:15 am - Nurse at Main Htzwfr4207/20/2019 11: 15 am - Donte Mckinney at Main Xbrvxd3907/17/2019 8:00 am - Nurse at Main Office Functional Status Description No Information Available Mental Status Description No Information Available Referrals Refer to Dr Reason for Referral Status Appt Date Servando Disla MD Created [address] [place] [address] [phone] [facility] Sent [address] [place] [address] [phone] Servando Disla MD Created [address] [place] [address] [phone] Denver Hudson MD Created [address] [place], [place] [address] [phone] Marcello Lino M.D. [facility] Closed 02/27/[address] [place] [address] [phone] Servando Disla MD Closed [address] [place] [address] [phone]
--- OUTSIDE RECORDS SUMMARY | 2019-07-13 12:30 | XMS REPORT | Continuity of Care Document ---
:1935 External Reference #:[id number] Author Name Tuan Castellanos MD (transmitted by agent of provider Amita Morgan) Address [address], [facility] [place] [address] Care Team Providers Name Role Phone Donte Mckinney MD - Internal Care Team Information Signal System Testing Maintainer [phone] Medicine Problems Active Problems Provider Date Calcific [...] 50mg daily Tablets ER Calcium 500 Unknown [phone]-mg-Un Tablets Albuterol Sulfate ER as needed Unknown [...] 10:00 am - Tuan Castellanos MD at [facility] at Mnnlpb6307/26/2019 10:30 am - Michael Peña MD at [facility] AT Aqyxbtpp69/10/2019 - Tuan Castellanos, MDM75.31 Calcific tendinitis of right shoulderNew Therapy:Physical TherapyReferral:Trey Ferreira MD, Sports Medicine: Family prFollow up:Follow up: 1 month - referral to Dr. Ferreira- back - PTM70.61 Trochanteric bursitis, right hipM54.16 Radiculopathy, lumbar region Functional Status Description No Information Available Mental Status Description No Information Available Referrals Refer to Reason for Referral Status Appt Date Trey Ferreira MD Created [address] [id number] [phone]
--- OUTSIDE RECORDS SUMMARY | 2019-07-13 12:31 | XMS REPORT | Continuity of Care Document ---
:1935 External Reference #:[id number] Author Name Donte Mckinney (transmitted by agent of provider Arely Jefferson) Address [address] [place] [address] Problems Active Problems Provider Date Type 2 [...] Acetonide nostril twice 55mcg/Act daily Aerosol Pen Fackler 1/2" dx e11.65 as 100units Donte Mckinney [...] Mckinneyl 09/15/2016 Device Daily DX E11.65 Syrings 3/16 Lenght 14 units in in the 100units Alex Mckinneyl 07/07/2016 By 31 Gauge morning dx e11.65 Wendy Allergy 1 PO qd prn 90tabs Alex Mckinneyl 05/05/2016 180mg Tablets Vitamin C Plus Alex Mckinneyl 05/05/2016 Echinacea 500-100mg Tablets Vitamin D3 High 1 by mouth every 90caps Alex Mckinneyl 05/05/2016 Potency day 1000Unit Capsules Meliza-Sequels Faye Odnte 05/05/2016 65-25mg Tablets ER Calcium 500 + D Faye Donte 05/05/2016 [id number] Tablets Multivitamin Women Faye Donte 05/05/2016 50+ 50+ Tablets Clonidine HCL 1 by mouth three 270tabs Alex Mckinneyl 10/09/2015 0.2mg times a day Tablets Levemir Flextouch taking 13 units in 3Mo Alex Mckinneyl 05/14/2015 the am and 16 100Unit/ML Solution units in the pm Pen-Inject Vasotec 1 by mouth twice a 180tabs Donte Mckinney 04/09/2015 20mg Tablets day Knee High Support as directed dx 1units Donte Mckinney 03/19/2015 Hose 250.00 459.81 20-30 compression Walker with wheels and 1units Donte Mckinney 02/14/2013 seat dx 781.2 Tylenol 8 Hour as needed 100tabs M15.0 Donte Mckinney 10/11/2012 650mg Tablets ER Fish Oil bid Donte Mckinney 11/25/[address] Celestin 1/2 PO qd 90tabs Donte Mckinney 06/01/2005 20mg Tablets Singulair 1 by mouth every 90tabs Donte Mckinney 06/01/2005 10mg Tablets day Dulera 1 puff twice a day 3units Donte Mckinney 200-5mcg/Act Aerosol Azithromycin 1 tab on Wed, Wed Donte Mckinney 250mg and Fri Tablets Spiriva Respimat 2 puff daily J44.9 Donte Mckinney 2.5mcg/Act Aerosol Torsemide in by mouth daily Donte Mckinney 100mg Tablets Levalbuterol HCL four times a day J20.9 Donte Mckinney dx pneumonia 0.63mg/3ML Nebulizer [...] CPT Code Status Date Vaccine Lot # 30582 Given 05/16/2019 Pneumovax Polyvalent Inj Im Q2035 Given 03/21/2019 Influenza Virus (Quadrivalent)Splitvirus 3 Years Of Age And Older Q2035 Given 03/21/2019 Influenza Virus (Quadrivalent)Splitvirus 3 [id number] Years Of Age And Older 54946 Given 03/21/2019 Influenza Virus Vaccine, Quadrivalent, Split, Preservative Free Q2035 Given 04/11/2018 Influenza Virus (Quadrivalent)Splitvirus 3 [id number] Years Of Age And Older Q2036 Given 03/23/2017 Flulaval Q2035 Given 03/23/2017 Influenza Virus (Quadrivalent)Splitvirus 3 Years Of Age And Older Q2037 Given 04/07/2016 Influenza Vaccine (Fluvirin) 3 Years Of Age Or [id number] Older 78599 Given 05/21/2015 Pneumococcal Conjugate Vaccine 13 Valent For [id number] Intramuscular Use Q2035 Given 03/19/2015 Influenza Virus (Quadrivalent)Splitvirus 3 [id number] Years Of Age And Older Q2037 Given 03/13/2014 Influenza Vaccine (Fluvirin) 3 Years Of Age Or Older Q2038 Given 04/04/2013 Influenza Vaccine (Fluzone) Administered Age 3 And Older 26189 Given 04/04/2013 Influenza Vaccine [id number] Q2037 Given 04/26/2012 Influenza Vaccine (Fluvirin) 3 Years Of Age Or [id number] Older Q2036 Given 04/15/2011 Flulaval [id number] 32449 Given 06/30/2010 Zostavax [id number] 34969 Given 04/15/2010 Influenza Vaccine [id number] 52666 Given 12/13/2009 Pneumovax Polyvalent Inj Im [id number] 39097 Given 04/23/2009 Influenza Vaccine 28240 Given 04/23/2009 Influenza Vaccine [id number] 19246 Given 04/17/2008 Influenza Vaccine 72105 86084 Given 04/12/2007 Influenza Vaccine 04286 47007 Given 04/16/2006 Influenza Vaccine 36908 Given 04/16/2006 Influenza Vaccine 59499 33935 Given 05/05/2005 Influenza Vaccine [id number] 03919 Given 05/05/2005 Influenza Vaccine 08375 Given 01/11/2005 Tetanus And Diptheria Toxiods [id number] 65995 Given 12/30/2004 [place] [address] Given 07/19/1991 Tetanus And Diptheria Toxiods Vital [...] H/L Range Note General Health 05/15/2019 [facility] TSH 0.30 mIU/L Low 0.40-4.50 1 Panel [facility] [address] [place] [address] [phone] T4, Free 1.4 ng/dL Normal 0.8-1.8 CBC (Includes 05/15/2019 [facility] White 14.9 High 3.8-10.8 Diff/PLT) [address] Blood Cell Thousand/[place] [address] Count [phone] Red Blood Cell Count 3.48 Million/uL Low 3.80-5.10 Hemoglobin 10.3 g/dL Low 11.7-15.5 Hematocrit 30.4 % Low 35.0-45.0 MCV 87.4 fL Normal 80.0-100.0 MCH 29.6 pg Normal 27.0-33.0 MCHC 33.9 g/dL Normal 32.0-36.0 RDW 14.2 % Normal 11.0-15.0 Platelet Count 390 Thousand/uL Normal 140-400 MPV 9.2 fL Normal 7.5-12.5 Absolute Neutrophils 69915 cells/uL High 0206-3290 Absolute Lymphocytes 745 cells/uL Low 850-3900 Absolute Monocytes 313 cells/uL Normal 200-950 Absolute Eosinophils 0 cells/uL Low 15-500 Absolute Basophils 30 cells/uL Normal 0-200 Neutrophils 92.7 % High 38-80 Lymphocytes 5.0 % Low 15-49 Monocytes 2.1 % Normal 0-13 Eosinophils 0.0 % Normal 0-8 Basophils 0.2 % Normal 0-2 Comprehensive Metabolic 05/15/2019 [facility] Glucose 198 mg/dL High 65-139 2 Panel [address] [place], [place] [address] [phone] Urea Nitrogen (BUN) 72 mg/dL High 7-25 Creatinine 1.83 mg/dL High 0.60-0.88 3 eGFR Non-Afr. Gabonese 25 mL/min/1.73m2 Low > Or = 60 [...] U/L High 6-29 Laboratory test 05/15/2019 [facility] Cortisone, Serum 0.8 g/dL 4 finding [address] [place], [place] [address] [phone] Enhanced PDF Report [id number] SEE IMAGE CMP W/GFR 04/11/2019 [facility] Sodium 140 mmol/L 135-146 5 [address] [place], [place] [address] [phone] Potassium 3.7 mmol/L 3.5-5.3 Chloride 102 mmol/L [...] 1.9-3.7 A/G Ratio 1.5 1.0-2.5 Egfr Non-Afr. [place]e 24 ML/MIN/1.73M2 Low > Or = 60 [...] 1.9-3.7 A/G Ratio 1.5 1.0-2.5 Egfr Non-Afr. [place]e 24 ML/MIN/1.73M2 Low > Or = 60 Egfr 28 ML/MIN/1.73M2 Low > Or = 60 CBC W/ Diff & PLT 04/11/2019 [facility] WBC 11.3 thous/L High 3.8 -10.8 [address] [place], [place] [address] [phone] RBC 4.03 mill/L 3.80-5.10 Hemoglobin 11.6 g/dL Low 11.7-15.5 Hematocrit 35.3 % 35.0-45.0 MCV 87.6 FL 80.0-100.0 MCH 28.8 pg 27.0-33.0 MCHC 32.9 g/dL 32.0-36.0 RDW 14.3 % 11.0-15.0 Platelet Count 406 thous/L High 140-400 MPV 8.7 FL 7.5-12.5 Neutrophils,Absolute 6850 cells/L 9650-3932 Bands,Absolute PENDING Metamyelocytes,Absolute PENDING Myelocytes,Absolute PENDING Promyelocytes,Absolute [...] MPV 8.7 FL 7.5-12.5 Neutrophils,Absolute 6850 cells/L 9917-4767 Lymphocytes,Absolute 3640 cells/L 850-3900 Monocytes,Absolute 630 cells/L 200-950 Eosinophils,Absolute 60 cells/L 15-500 Basophils,Absolute 60 cells/L 0-200 Total Neutrophils,% 61.2 % 40-75 Total Lymphocytes,% 32.2 % 12-47 Monocytes,% 5.6 % 4-12 Eosinophils,% 0.5 % 0-4 Basophils,% 0.5 % 0-1 13 Lipid Panel 04/11/2019 [facility] Cholesterol 173 mg/dL <199 [address] [place] [address] [phone] HDL Cholesterol 56 mg/dL >50 Cholesterol/HDL Ratio [...] <130 19 Laboratory test finding 04/11/2019 [facility] Cortisol,A.M. PENDING [address] [place], [place] [address] [phone] Vitamin D,25-Hydroxy,Total,Immunoassay 32 NG/ML 30-100 20 Hemoglobin A1c 6.6 % High 0-5.6 21 TSH & T4,Free 04/11/2019 [facility] TSH 0.31 mIU/L Low 0.40-4.50 22 [address] [place], [place] [id number] [phone] T4,Free 1.4 ng/dL 0.8-1.8 Laboratory test finding 04/11/2019 [facility] TSH 0.31 mIU/L Low 0.40-4.50 23 [address] [place], [place] [address] [phone] T4,Free 1.4 ng/dL 0.8-1.8 Clinical PDF Report [id number] SEE IMAGE Hemoglobin A1c 6.6 % High [...] approximately 13% higher for people identified as -Gabonese. 4 Reference Range: AM: 1.2-3.5 PM: 0.6-2.8 This test was developed and its analytical performance characteristics have been determined by [facility]. It has not been cleared or approved by FDA. This assay has been validated pursuant to the CLIA regulations and is used for clinical purposes. 5 FASTING 6 Reference range for high altitude clients: 18-30 mmol/L 7 GLUCOSE REFERENCE RANGE BASED ON FASTING SPECIMEN. 8 The upper reference limit for Creatinine is approximately 13% higher for people identified as -Gabonese. 9 Reference range for high altitude clients: 18-30 mmol/L 10 GLUCOSE REFERENCE RANGE BASED ON FASTING SPECIMEN. 11 The upper reference limit for Creatinine is approximately 13% higher for people identified as -Gabonese. 12 Relative blood cell counts (%) should be compared with absolute cell counts (cells/mcL). Relative counts may not be clinically meaningful if the absolute count of one or more cell type is decreased. Reference ranges for relative cell counts derived from: A Manual of Laboratory and Diagnostics Tests, 9th Ed, Angel Vance & Huang, 2015. Pediatric Reference Intervals, 7th Ed, [employer], 2011. 13 Relative blood cell counts (%) should be compared with absolute cell counts (cells/mcL). Relative counts may not be clinically meaningful if the absolute count of one or more cell type is decreased. Reference ranges for relative cell counts derived from: A Manual of Laboratory and Diagnostics Tests, 9th Ed, [employer] Vance [employer] Huang, 2015. Pediatric Reference Intervals, 7th Ed, [employer], 2011. 14 LDL-C is now calculated using the Danny-Stallworth calculation, which is a validated novel method providing better accuracy than the Friedewald equation in the estimation of LDL-C. Danny SS et al.MARIAELENA.2013;310(19):0687-0336 Desirable range <100 mg/dL for primary prevention; <70 mg/dL for patients with CHD or diabetic patients with >or= 2 CHD risk factors. 15 If a non-fasting specimen was collected, consider repeat triglyceride testing on a fasting specimen if clinically indicated. Rosenberg et al.J of Clin.Lipidol.2015;9:129-169. 16 For patients with diabetes plus 1 major ASCVD risk factor, treating to a non-HDL-C goal of <100 mg/dL (LDL-C of <70 mg/ dL) is considered a therapeutic option. 17 LDL-C is now calculated using the Danny-Stallworth calculation, which is a validated novel method providing better accuracy than the Friedewald equation in the estimation of LDL-C. Danny SS et al.MARIAELENA.2013;310(19):4085-1938 Desirable range <100 mg/dL for primary prevention; [...] Vit D, (D2,D3),LC/MS/MS is recommended: Order code 01201 (patients >2 yrs). 21 For someone without [...] Vit D, (D2,D3),LC/MS/MS is recommended: Order code 15610 (patients >2 yrs). 27 REFERENCE RANGE AM: 1-3 DAYS OLD: PREMATURE INFANTS (31-35 WEEKS): < OR = 15.0 MCG/DL TERM INFANTS: < OR = 14.0 MCG/DL 4 DAYS-1 MONTH: NOT ESTABLISHED 1 MONTH-11 MONTHS: 3.0-23.0 MCG/DL 1 YEAR-17 YEARS: 3.0-25.0 MCG/DL 18 YEARS OR OLDER: 4.0-22.0 MCG/DL Procedures Date Code Description Status 05/30/2019 63553 Therapeutic,Prophylactic Intramuscular Inj Completed 04/18/2019 18460 Therapeutic,Prophylactic Intramuscular Inj Completed 04/18/2019 26374 Non-Invcorrotid/Comp /Bilat Study Completed 04/17/2019 69505 Echocardiography Completed 04/11/2019 16480 Spirometry Graphic Record/Max Voluntary Vent Completed 04/11/2019 16728 EKG-Tracing & Report Completed 04/10/2019 73628 EKG-Tracing & Report Completed 04/04/2019 98208 Therapeutic,Prophylactic Intramuscular Inj Completed 03/21/2019 01502 Therapeutic,Prophylactic Intramuscular Inj Completed 02/07/2019 20262 Therapeutic,Prophylactic Intramuscular Inj Completed 01/24/2019 35488 Therapeutic,Prophylactic Intramuscular Inj Completed 01/10/2019 16919 Therapeutic,Prophylactic Intramuscular Inj Completed 12/27/2018 53741 Therapeutic,Prophylactic Intramuscular Inj Completed 12/15/2018 67345 Therapeutic,Prophylactic Intramuscular Inj Completed 03/11/2017 [id number] Bone Mineral Density Test Completed 07/22/2015 [id number] Mammogram Completed 05/13/2007 [id number] Colonoscopy Completed Medical Devices Description No Information Available Encounters Type Date Location Provider Dx Diagnosis Office Visit 05/25/2019 11:30a Main Office Donte [...] deficiency, unspecified Assessments Date Code Description Provider 06/12/2019 M15.9 Polyosteoarthritis, unspecified Donte Mckinney 06/12/2019 J44.1 Chronic obstructive pulmonary disease with (acute) Donte Mckinney exacerbation 06/12/2019 I65.23 Occlusion and stenosis of bilateral carotid arteries Donte Mckinney 06/12/2019 E78.5 Hyperlipidemia, unspecified Donte Mckinney 06/12/2019 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 Gauss, Donte 06/12/2019 E66.09 Other obesity due to excess calories Gauss, Donte 06/12/2019 I11.9 Hypertensive heart disease without heart failure Gauss, Donte 06/12/2019 J44.9 Chronic obstructive pulmonary disease, unspecified Gauss, Donte 06/12/2019 M54.5 Low back pain Gauss, [facility] 06/12/2019 J44.0 Chronic obstructive pulmonary disease with acute Gauss, Donte lower respiratory infection 05/30/2019 T78.40xD Allergy, unspecified, subsequent encounter Gauss, [facility] 05/25/2019 R06.02 Shortness of breath Ksuss, [facility] 05/25/2019 J44.1 Chronic obstructive pulmonary disease with (acute) Gauss, Donte exacerbation 05/25/2019 I65.23 Occlusion and stenosis of bilateral carotid arteries Gauss , Donte 05/25/2019 T78.40xD Allergy, unspecified, subsequent encounter Gauss, [facility] 05/25/2019 E78.5 Hyperlipidemia, unspecified Gauss, [facility] 05/25/2019 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 Gauss, [facility] 05/25/2019 E66.09 Other obesity due to excess calories Ksuss, [facility] 05/25/2019 I11.9 Hypertensive heart disease without heart failure Gauss, Donte 05/25/2019 E11.65 Type 2 diabetes mellitus with hyperglycemia [facility], [facility] 05/25/2019 E03.9 Hypothyroidism, unspecified Gauss, [facility] 05/25/2019 J40 Bronchitis, not specified as acute or chronic Gauss, [facility] 05/25/2019 J45.30 Mild persistent asthma, uncomplicated Gauss, Donte 05/16/2019 T78.40xD Allergy, unspecified, subsequent encounter Gauss, Donte 05/15/2019 J44.1 Chronic obstructive pulmonary disease with (acute) Gauss, Donte exacerbation 05/15/2019 T78.40xD Allergy, unspecified, subsequent encounter Gauss, Donte 05/15/2019 I65.23 Occlusion and stenosis of bilateral carotid arteries Gauss , Donte 05/15/2019 E78.2 Mixed hyperlipidemia Gauss, [facility] 05/15/2019 R06.02 Shortness of breath Gauss, [facility] 05/15/2019 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 [facility], [facility] 05/15/2019 E66.09 Other obesity due to excess calories [facility], [facility] 05/15/2019 I11.9 Hypertensive heart disease without heart failure [facility], [facility] 04/24/2019 R26.89 Other abnormalities of gait and mobility [facility], [facility] 04/24/2019 T78.40xD Allergy, unspecified, subsequent encounter [facility], [facility] 04/24/2019 I65.23 Occlusion and stenosis of bilateral carotid arteries [facility] , [facility] 04/24/2019 I34.0 Nonrheumatic mitral (valve) insufficiency [facility], [facility] 04/24/2019 E78.2 Mixed hyperlipidemia [facility], [facility] 04/24/2019 R06.02 Shortness of breath [facility], [facility] 04/24/2019 J44.9 Chronic obstructive pulmonary disease, unspecified [facility], [facility] 04/24/2019 J44.1 [facility]2019 T78.40xD Allergy, unspecified, subsequent encounter [facility] 04/18/2019 I65.23 Occlusion and stenosis of bilateral carotid arteries [facility] , [facility] 04/17/2019 I34.0 Nonrheumatic mitral (valve) insufficiency [facility], [facility] 04/11/2019 E78.2 Mixed hyperlipidemia [facility], [facility] 04/11/2019 R06.02 Shortness of breath [facility], [facility] 04/11/2019 J44.9 Chronic obstructive pulmonary disease, unspecified Gauss, [facility] 04/11/2019 R05 Cough Gauss, [facility] 04/10/2019 E78.2 Mixed hyperlipidemia Gauss, [facility] 04/04/2019 T78.40xD Allergy, unspecified, subsequent encounter [facility] 03/21/2019 Z23 Encounter for immunization [facility], [facility] 03/21/2019 T78.40xD Allergy, unspecified, subsequent encounter [facility], [facility] 02/21/2019 E11.65 Type 2 diabetes mellitus with hyperglycemia [facility] 02/14/2019 R42 Dizziness and giddiness [facility], [facility] 02/14/2019 T78.40xD Allergy, unspecified, subsequent encounter Gauss, [facility] 02/14/2019 E11.65 Type 2 diabetes mellitus with hyperglycemia Gauss, Donte 02/14/2019 E03.9 Hypothyroidism, unspecified Gauss, Donte 02/14/2019 J44.9 Chronic obstructive pulmonary disease, unspecified Gauss, [facility] 02/14/2019 J40 Bronchitis, not specified as acute or chronic Gauss, Donte 02/14/2019 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 Gauss, Donte 02/14/2019 E66.09 Other obesity due to excess calories Gauss, Donte 02/14/2019 I11.9 Hypertensive heart disease without heart failure Gauss, Donte 02/14/2019 J45.30 Mild persistent asthma, uncomplicated Gauss, [facility] 02/14/2019 M54.5 Low back pain Gauss, [facility] 02/14/2019 J44.0 Chronic obstructive pulmonary disease with acute Gauss, Donte lower respiratory infection 02/14/2019 I73.9 Peripheral vascular disease, unspecified Gauss, [facility] 02/14/2019 I65.23 Occlusion and stenosis of bilateral carotid arteries Gauss , Donte 02/14/2019 R26.89 Other abnormalities of gait and mobility Gauss, [facility] 02/07/2019 T78.40xD Allergy, unspecified, subsequent encounter Gauss, [facility] 01/24/2019 T78.40xD Allergy, unspecified, subsequent encounter Gauss, [facility] 01/17/2019 E11.65 Type 2 diabetes mellitus with hyperglycemia Gauss, [facility] 01/17/2019 E03.9 Hypothyroidism, unspecified Gauss, [facility] 01/17/2019 T78.40xD Allergy, unspecified, subsequent encounter Gauss, Donte 01/17/2019 J44.9 Chronic obstructive pulmonary disease, unspecified Gauss, [facility] 01/17/2019 J40 Bronchitis, not specified as acute or chronic Gauss, Donte 01/17/2019 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 Gauss, [facility] 01/17/2019 E66.09 Other obesity due to excess calories Gauss, [facility] 01/17/2019 I11.9 Hypertensive heart disease without heart failure Gauss, Donte 01/10/2019 T78.40xD Allergy, unspecified, subsequent encounter Gauss, Donte 12/27/2018 T78.40xD Allergy, unspecified, subsequent encounter Faye Donte 12/20/2018 T78.40xD Allergy, unspecified, subsequent encounter Faye Donte 12/20/2018 E11.65 Type 2 diabetes mellitus with hyperglycemia Faye Donte 12/20/2018 E03.9 Hypothyroidism, unspecified Pradeeptaylor Donte 12/20/2018 J44.9 Chronic obstructive pulmonary disease, unspecified Faye Donte 12/20/2018 J40 Bronchitis, not specified as acute or chronic Pradeeptaylor Donte 12/20/2018 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 Pradeeptaylor Donte 12/20/2018 E66.09 Other obesity due to excess calories Faye Donte 12/20/2018 I11.9 Hypertensive heart disease without heart failure Faye Donte 12/20/2018 E78.5 Hyperlipidemia, unspecified Pradeeptaylor Donte 12/20/2018 J44.1 Chronic obstructive pulmonary disease with (acute) Faye Donte exacerbation 12/20/2018 R06.02 Shortness of breath Faye Donte 12/20/2018 I34.0 Nonrheumatic mitral (valve) insufficiency Faye Donte 12/20/2018 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 Faye Donte 12/20/2018 E55.9 Vitamin D deficiency, unspecified Faye Donte 12/15/2018 T78.40xD Allergy, unspecified, subsequent encounter Donte Mckinney Plan of Treatment Future Appointment(s):06/13/2019 9:30 am - Nurse at Main Ahxwcp3406/19/2019 10: 30 am - Donte Mckinney at Main Hmgozd2506/12/2019 - Alex MckinneylM15.9 Polyosteoarthritis, unspecifiedComments:Discussed treatment strategies including role of [...] from reliable sources such as [employer].Referral :[facility], Orthopedic EuudaayuqQ41.1 Chronic obstructive pulmonary disease with (acute) qzphxwbtpkckG66.23 Occlusion and stenosis of bilateral carotid arteriesComments:Discussed role of life style choices in dietary fats and exercise plays on evolution of [place] disease and importance of controlling cholesterol. Medications role and side effects in disease progression prevention discussed and need for compliance with prescribed treatment. Follow up testing for progression such as ultrasound surveillance uqkpwvriK75.5 Hyperlipidemia, unspecifiedComments:Counselled on role of diet and excersize and importance to keep compliance with medication if prescribed and side effects. The importance of routine monitoring of blood lipids and liver tests to managetreatment and avoid side effects were discussed. Usual follow up is 3 months for LFT and Lipid profile. Patient education including dietary guidelines and materials provided.E27.5 Adrenomedullary eulekybuowniuI55.09 Other obesity due to excess caloriesComments :Discussed health effects of obesity and healthy diet [...] treatmentplan and course of therapy reviewed as tftnrygnigO50.0 Chronic obstructive pulmonary disease with acute lower [...] to Reason for Referral Status Appt Date [facility] Sent [address] [place] [address] [phone] Created Servando Disla MD Created [address] [place], [place] [address] [phone] Denver Hudson MD Created [address] [place] [address] [phone] Marcello Lino M.D. [facility] Closed 02/27/[address] [place] [address] [phone] Servando Disla MD Closed [address] [place], [place] [address] [phone]
--- OUTSIDE RECORDS SUMMARY | 2019-07-13 12:31 | XMS REPORT | Continuity of Care Document ---
:1935 Author Name Bench Worker Binding, System Address Unavailable Unavailable , Care Team Providers Name Role Phone Faye DUFFY, Donte Unavailable Denver Hudson DO Unavailable NATALYA DUFFY, LASHAY Lugo Unavailable Antonia DUFFY, Saul Brady Unavailable Ranulfo DUFFY, Maryann Unavailable HOKERVIN, Hematology DIrect Address Unavailable Unavailable Edmundo Diaz M Unavailable Floyd DUFFY, Amisha Caldwell Unavailable Tasha DPM, Main Unavailable Hilary MSN NPC, [place] Unavailable lEizabeth Msn Npc, Mela Le Unavailable Marlyn MSN, NPC, Gregoria Unavailable Matti DUFFY, Dr. Guero Melo Unavailable Niharika LRT, Tera Unavailable Unavailable Rodriguez ADVERTISING WRITER, Pancho Unavailable Unavailable Reginald TANK CAR LOADER, Reji Unavailable Unavailable Cristopher ADVERTISING WRITER, Kavitha Unavailable Unavailable Margo ADVERTISING WRITER, Yael Unavailable Unavailable Loveless ADVERTISING WRITER, Ally Unavailable Unavailable Davin ADVERTISING WRITER, Yvette Unavailable Unavailable Beaudin ADVERTISING WRITER, Kobe Unavailable Unavailable Flaherty LRT, Guero Unavailable Unavailable Taylor ADVERTISING WRITER, Briseida Unavailable Unavailable Harp LRT, Piper Unavailable Unavailable Unavailable Unavailable Problems ABNORMAL FINDING ON LUNG IMAGING (R91.8) (793.19) DO Denver Hudson Comments: L > R upper lobe scarring, RUL plate like scarring. new RML and RLL scarring vs atelectasis. also mild bronchiectasis ABNORMAL SPUTUM (R09.3) (786.4) DO Denver Hudson Comments: hx of pseudomonas, MRSA, e coli, and acinetobacter baumannii on sputum analysis ACUTE BRONCHITIS (J20.9) (466.0) DO Denver Hudson ALLERGIC RHINITIS (J30.9) (477.9) DO Denver Hudson ASTHMA (Renamed from AIRWAY HYPERREACTIVITY) (J45.909) (493.90) Marlyn, MSN, NPC Prognosis: Patient with clinical picture as noted was seen november to 2018 with increased symptomatology. We did try Trelegy daily to replace Spiriva and Dulera but this was not helpful and she went back to those pre Gregoria parations. She has been compliant with her medical regimen including fluid intake, Mucinex, and continuing her immunotherapy although apparently this has been changed recently. 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 The patient has had relative stability until April when she is had more symptomatology despite treat ment with Augmentin, Cipro, and amoxicillin on the basis of an April 21, 2019 sputum culture revealing staph aureus and pseudomonas aeruginosa although a chest x-ray on May 15, 2019 revealed no acu te disease. She also had one course of prednisone and despite this therapy the patient continues to have worsening shortness of breath with cough productive of brown sputum but no fever. She has gaine d 6 pounds in weight and has had more fluid retention.Her exam is little changed except for more peripheral edema.FeNO level is normal at 16.Pulmonary function test is similar to prior with a vital capa city 66% and moderate airways obstruction.My impressions are unchanged with the addition that she appears to be chronically infected and I am going to check sputum culture and sputum AFB once again. Flu id retention could be playing a role and she states she felt better on her prior desensitization regimen. I am also going to check blood work and if her immunoglobulin G deficiency persists I would hope that we might be able to get coverage for replacement therapy. She has been told to continue her regimen, limit her rescue preparation and less dyspnea persists after resting, and call with problems with reassessment with more testing in one month. 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) DO Denver Hudson COUGH (R05) (786.2) DO Denver Hudson DYSPNEA (R06.00) (786.09) DO Denver Hudson GERD (GASTROESOPHAGEAL REFLUX DISEASE) (K21.9) (530.81) DO Denver Hudson HYPERLIPIDEMIA (Renamed from HLD (HYPERLIPIDEMIA)) (E78.5) (272.4) DO Denver Hudson IGG DEFICIENCY (D80.3) (279.03) DO Denver Hudson OBESITY (Renamed from OBESE) (E66.9) (278.00) DO Denver Hudson OBSTRUCTIVE SLEEP APNEA (G47.33) (327.23) DO Denver Hudson Comments: moderate AHI 26/hr, LS 89% OSTEOARTHRITIS (M19.90) (715.90) DO Denver Hudson PNEUMONIA (J18.9) (486) DO Denver Hudson Prognosis: Patient with asthma and PABLITO as well as comorbidities who had been stable until early August when hospitalized for 5 days with pneumonia. She has completed antibiotics and remains on her usual regimen but still is not quite back to baseline although she does not have acute infectious symptoms. She is current with her vaccines, has stable weight, denies any other new interval symptoms or medical pro blems.Her exam reveals a decrease in breath sounds bilaterally but no adventitious sounds.Her chest x-ray is compared to January 03, 2016 and reveals no significant change.Pulmonary function test is stable and reveals moderate airways obstruction.My impressions are unchanged. She will continue her current regimen, call with problems, with reassessment in 5-6 months with appropriate studies. 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) DO Denver Husdon Comments: RML/LLL; stable CT chest 12/10/2004-12/20/2006 THYROIDITIS (E06.9) (245.9) DO Denver Hudson WHEEZE (R06.2) (786.07) DO Denver Hudson Allergies and Adverse Reactions Levaquin *FLUOROQUINOLONES* (Allergy) Comments: tolerates CIPRO Nucynta ER *ANALGESICS - OPIOID* (Allergy) Sulfa Antibiotics (Allergy) Comments: renal failure ZyrTEC *ANTIHISTAMINES* (Allergy) Comments: retains fluids Medications LURDES ALLERGY, 180MG (Oral Tablet); 1 daily (180 MG) AmLODIPine Besylate 10 MG Oral Tablet; 1 daily (10 MG) CALCIUM-VITAMIN D, [id number] (Oral Tablet); three times daily (250-125 MG-UNIT) Chlorthalidone 25 MG Oral Tablet; 1 daily (25 MG) CloNIDine HCl 0.1 MG Oral Tablet; 1 three times daily (0.1 MG) CPAP ( Device) (Free Text); +8 Comments: [facility] cm at bedtime Dulera 200-5 MCG/ACT Inhalation Aerosol; 2 (two) Puff two times daily for 30 days Ordered: 08-Jun-2016 Start: 08-Jun-2016 Quantity: 1 {Inhalation} ALEXIA Cline, NPC Gregoria Comments: dose change Refills: 11 Dulera 200-5 MCG/ACT Inhalation Aerosol; 2 (two) Puff two times daily for 90 days Ordered: 08-Jun-2016 Start: 08-Jun-2016 Quantity: 3 {Inhalation} ALEXIA Cline, NPC Gregoria Refills: 3 ENALAPRIL MALEATE, 10MG (Oral Tablet); TWo times daily (10 MG) FISH OIL MAXIMUM STRENGTH, 1200MG (Oral Capsule Delayed Release); daily (1200 MG) HumaLOG 100 UNIT/ML Subcutaneous Solution; (100 UNIT/ML) Hydrocortisone 20 MG Oral Tablet; 1.5 am 1pm two times daily (20 MG) Levalbuterol HCl 0.63 MG/3ML Comments: Medication taken as Inhalation Nebulization needed. Solution; 1 Four times daily, as needed (0.63 MG/3ML) LEVEMIR, 100UNIT/ML (Subcutaneous Solution); UAD (100 UNIT/ML) LIPITOR, 10MG (Oral Tablet); daily (10 MG) Miacalcin 200 UNIT/ACT Nasal Solution; daily (200 UNIT/ACT) PROVENTIL HFA, 108 (90 Base)MCG/ACT (Inhalation Aerosol Solution); qid prn (108 (90 Base) MCG/ACT) SINGULAIR, 10MG (Oral Tablet); daily (10 MG) Spiriva Respimat 2.5 MCG/ACT Inhalation Aerosol Solution; 2 (two) Puff daily for 30 days Ordered: 05-Jul-2018 Start: 05-Jul-2018 Quantity: 1 {Inhalation} MD Guero [place] Dr. Refills: 5 Torsemide 10 MG Oral Tablet; 1 Comments: 1/2 QOD every other day (10 MG) VITAMIN D, 1000UNIT (Oral Capsule); daily (1000 UNIT) ADVAIR DISKUS, 250-50MCG/DOSE Status: Inactive (Inhalation Aerosol Powder Breath Activated); two times daily (250-50 MCG/DOSE) ADVAIR DISKUS, 250-50MCG/DOSE (Inhalation Aerosol Powder Breath Activated); 1 Puff(s) two times daily for 0 days Ordered: 02-Mar-2013 Start: 07-Oct-2012 End : 02-Mar-2013 Quantity: 1 {Inhaler(s)} PURA Woods Status: Inactive Refills: 5 Albuterol Sulfate (2.5 MG/3ML) 0.083% Inhalation Nebulization Solution; 1 (one ) Nebulized Soln four times daily, as needed for 30 days Ordered: 05-Jun-2019 Start: 02-Apr-2017 End: 05-Jun-2019 Quantity: 3 {Box} PURA Jin Status: Inactive Refills: 3 Comments: Medication taken as needed. ALBUTEROL SULFATE HFA, 108 (90 Status: Inactive Base)MCG/ACT (Inhalation Aerosol Solution); qid prn (108 (90 Base) MCG/ACT) ALENDRONATE SODIUM, 70MG (Oral Status: Inactive Tablet); weekly (70 MG) Amoxicillin-Pot Clavulanate 875-125 MG Oral Tablet; 1 (one) Tablet two times daily for 10 days Ordered: 20-Apr-2019 Start: 20-Apr-2019 End: 30-Apr-2019 Quantity: 20 {Tablet} ALEXIA Cline, NPC Gregoria Status: Inactive Refills: 0 Cipro 500 MG Oral Tablet; 1 (one) Tablet two times daily for 10 days Ordered : 28-Apr-2019 Start: 28-Apr-2019 End: 08-May-2019 Quantity: 20 {Tablet} ALEXIA Cline NPC Jillian Status: Inactive Refills: 0 CPAP SUPPLIES ( Device) (Free Text); 1 Device UAD for 1 days Ordered: 2010 Start: 01-May-2011 End: 02-May-2011 Refills: 0 ALEXIA Cline NPC Jillian Status: Inactive Comments: cpap mask and supplies; bagmachine checkdx: 327.23 DILTIAZEM HCL ER BEADS, 360MG Status: Inactive (Oral Capsule Extended Release 24 Hour); daily (360 MG) Doxycycline Hyclate 100 MG Oral Capsule; 1 (one) Capsule two times daily for 10 days Ordered: 02-Apr-2017 Start: 02-Apr-2017 End: 12-Apr-2017 Quantity: 20 {Capsule} ALEXIA Cline, KANE Kinney Status: Inactive Refills: 0 HUMALOG, 100UNIT/ML Status: Inactive (Subcutaneous Solution); UAD (100 UNIT/ML) HYDROCORT, 1% (External Status: Inactive Lotion); uAD (1 %) LASIX, 40MG (Oral Tablet); two Status: Inactive times daily (40 MG) MAGNESIUM OXIDE, 400MG (Oral Status: Inactive Tablet); 1 two times daily (400 MG) MEDROL (KENDAL), 4MG (Oral Status: Inactive Tablet); UAD (4 MG) Minocycline HCl 100 MG Oral Tablet; 1 (one) Tablet UAD for 10 days Ordered: 29-Aug-2018 Start: 29-Aug-2018 End: 08-Sep-2018 Quantity: 21 {Tablet} ALEXIA Cline, KANE Kinney Status: Inactive Refills: 0 Comments: 200mg (2 tabs) PO once, then 100mg PO x 12 hrs. total 10 days NEXIUM, 40MG (Oral Capsule Status: Inactive Delayed Release); daily (40 MG) PRANDIN, 1MG (Oral Tablet); 1 Status: Inactive three times daily (1 MG) predniSONE 10 MG Oral Tablet; 1 (one) Tablet UAD for 6 days Ordered: 2018 Start: 28-Apr-2019 End: 04-May-2019 Quantity: 12 {Tablet} ALEXIA Cline, KANE Butcherian Status: Inactive Refills: 0 Comments: 30mg po x 2 days, [id number] po x 2 days [id number] po x 2 days, then stop Qvar 80 MCG/ACT Inhalation Aerosol Solution; 2 (two) Puff(s) Puff(s) two times daily for 30 days Ordered: 02-Apr-2017 Start: 15-Dec-2016 End: 2016 Quantity: 1 {Inhaler} PURA Jin Status: Inactive Refills: 1 TOBRAMYCIN, 300MG/5ML (Inhalation Nebulization Solution); 1 (one) Nebulized Soln Nebulized Soln two times daily; 28 days on then 28 days off, then repeat for 90 days Ordered: 19-Apr-2015 Start: 28-Aug-2014 End: 19-Apr-2015 Quantity: 56 {Vial} PURA Taylor Status: Inactive Refills: 3 TRAMADOL HCL, 50MG (Oral Status: Inactive Tablet); as needed (50 MG) Comments: Medication taken as needed. TRAMADOL HCL, 50MG (Oral Status: Inactive Tablet); three times daily (50 MG) TRAMADOL-ACETAMINOPHEN, Status: Inactive 37.5-325MG (Oral Tablet); as Comments: Medication taken as needed. needed (37.5-325 MG) Triamcinolone Acetonide 55 MCG/ACT Nasal Aerosol; 2 (two) Aerosol Soln daily for 30 days Ordered: 01-Aug-2018 Start: 22-Mar-2015 End: 01-Aug-2018 Quantity: 60 {Aerosol_Soln} ALEXIA Cline, NPC Gregoria Status: Inactive Refills: 11 Comments: 2 sprays each nostril TUBERSOL, 5UNIT/0.1ML (Intradermal Solution); 1 (one) Solution once for 0 days Ordered: 10-Apr-2013 Start: 02-Mar-2013 End: 10-Apr-2013 Quantity: 1 {Solution} PURA Woods Status: Inactive Refills: 0 Zithromax Z-Kendal 250 MG Oral Tablet; 1 (one) Package(s) UAD for 5 days Ordered : 04-Jan-2017 Start: 04-Jan-2017 End: 09-Jan-2017 Quantity: 1 {Package} ALEXIA Cline, NPC Gregoria Status: Inactive Refills: 0 LURDES ALLERGY, 180MG (Oral End: 12-May-2013 Tablet); daily (180 MG) Status: Discontinued BACTRIM, 400-80MG (Oral End: 04-May-2014 Tablet); daily (400-80 MG) Status: Discontinued EVISTA, 60MG (Oral Tablet); End: 06-May-2015 daily (60 MG) Status: Discontinued MELOXICAM, 7.5MG (Oral Tablet); End: 07-Oct-2012 daily (7.5 MG) Status: Discontinued MIACALCIN, 200UNIT/ACT (Nasal End: 06-May-2015 Solution); Daily (200 Status: Discontinued UNIT/ACT) SINGULAIR, 10MG (Oral Tablet); End: 07-Oct-2012 daily (10 MG) Status: Discontinued SYMBICORT, 160-4.5MCG/ACT (Inhalation Aerosol); 2 (two) Puff(s) two times daily for 0 days Ordered: 01-May-2011 Start: 01-May-2011 End: 04-Feb-2012 Quantity: 3 {Package(s)} PURA Aragon Status: Discontinued Refills: 3 VITAMIN C CR, 500MG (Oral End: 21-Apr-2013 Capsule Extended Release); Status: Discontinued daily (500 MG) Procedures EXHALED NITRIC OXIDE MEASUREMENT Status: Completed 05-Jun-2019 ([id number]) EXHALED NITRIC OXIDE MEASUREMENT Date: 01-Aug-2018 Status: Completed 2018 (82423) AIRFLOW RESISTANCE MEASUREMENT: Status: Completed 17-Nov-2018 PULM FUNCT TEST OSCILLOMETRY (34471) THORACIC GAS VOLUME: AIRWAY Status: Completed 17-Nov-2018 CLOSING VOLUME MEASUREMENT: PULM FUNCTION TEST BY GAS (40697) TOTAL VITAL CAPACITY (98674) Status: Completed 17-Nov-2018 MEASUREMENT OF NITRIC Status: Completed 17-Nov-2018 OXIDE (93086) MEASUREMENT OF NITRIC Status: Completed 08-Jun-2018 OXIDE (08353) RESPIRATORY FLOW VOLUME LOOP Status: Completed 08-Jun-2018 (55928) TOTAL VITAL CAPACITY (28942) Status: Completed 16-Feb-2018 TOTAL BODY PLETHYSMOGRAPHY: Status: Completed 16-Feb-2018 AIRFLOW RESISTANCE MEASUREMENT (30017) THORACIC GAS VOLUME: AIRWAY Status: Completed 16-Feb-2018 CLOSING VOLUME MEASUREMENT: PULM FUNCTION TEST BY GAS (07329) RESPIRATORY FLOW VOLUME LOOP Status: Completed 16-Feb-2018 (83207) DLCO (CARBON MONOXIDE DIFFUSING Status: Completed 16-Feb-2018 CAPACITY) (43924) AIRFLOW RESISTANCE MEASUREMENT: Status: Completed 16-Feb-2018 PULM FUNCT TEST OSCILLOMETRY (44397) PRE AND POST (61681) Status: Completed 16-Feb-2018 RESPIRATORY FLOW VOLUME LOOP Status: Completed 17-Nov-2017 (60678) TOTAL VITAL CAPACITY (57748) Status: Completed 26-Feb-2017 TOTAL BODY PLETHYSMOGRAPHY (48769) Status: Completed 26-Feb-2017 TGV THORACIC GAS VOLUME: AIRWAY Status: Completed 26-Feb-2017 CLOSING VOLUME MEASUREMENT: PULM FUNCTION TEST BY GAS (33130) RESPIRATORY FLOW VOLUME LOOP Status: Completed 26-Feb-2017 (94307) DLCO (CARBON MONOXIDE DIFFUSING Status: Completed 26-Feb-2017 CAPACITY) (94220) AIRFLOW RESISTANCE MEASUREMENT: Status: Completed 26-Feb-2017 PULM FUNCT TEST OSCILLOMETRY (49877) PRE AND POST (48111) Status: Completed 26-Feb-2017 RESPIRATORY FLOW VOLUME LOOP Status: Completed 09-Sep-2016 (99564) PRE AND POST (55009) Status: Completed 09-Sep-2016 TOTAL VITAL CAPACITY (09972) Status: Completed 17-Apr-2016 TOTAL BODY PLETHYSMOGRAPHY (31134) Status: Completed 17-Apr-2016 TGV THORACIC GAS VOLUME: AIRWAY Status: Completed 17-Apr-2016 CLOSING VOLUME MEASUREMENT: PULM FUNCTION TEST BY GAS (46336) RESPIRATORY FLOW VOLUME LOOP Status: Completed 17-Apr-2016 (68458) DLCO (CARBON MONOXIDE DIFFUSING Status: Completed 17-Apr-2016 CAPACITY) (85029) AIRFLOW RESISTANCE MEASUREMENT: Status: Completed 17-Apr-2016 PULM FUNCT TEST OSCILLOMETRY (75817) PRE AND POST (33404) Status: Completed 17-Apr-2016 RESPIRATORY FLOW VOLUME LOOP Status: Completed 26-Nov-2015 (99115) TOTAL VITAL CAPACITY (53873) Status: Completed 26-Aug-2015 TOTAL BODY PLETHYSMOGRAPHY (63843) Status: Completed 26-Aug-2015 TGV THORACIC GAS VOLUME: AIRWAY Status: Completed 26-Aug-2015 CLOSING VOLUME MEASUREMENT: PULM FUNCTION TEST BY GAS (25554) RESPIRATORY FLOW VOLUME LOOP Status: Completed 26-Aug-2015 (67905) DLCO (CARBON MONOXIDE DIFFUSING Status: Completed 26-Aug-2015 CAPACITY) (94192) AIRFLOW RESISTANCE MEASUREMENT: Status: Completed 26-Aug-2015 PULM FUNCT TEST OSCILLOMETRY (02742) PRE AND POST (06392) Status: Completed 26-Aug-2015 AIRFLOW RESISTANCE MEASUREMENT: Status: Completed 19-Apr-2015 PULM FUNCT TEST OSCILLOMETRY (84701) TOTAL VITAL CAPACITY (45963) Status: Completed 19-Apr-2015 TOTAL BODY PLETHYSMOGRAPHY: AIRWAY Status: Completed 19-Apr-2015 CLOSING VOLUME MEASUREMENT: PULM FUNCT TST PLETHYSMOGRAP (21291) RESPIRATORY FLOW VOLUME LOOP Status: Completed 19-Apr-2015 (60082) THORACIC GAS VOLUME: AIRWAY Status: Completed 19-Apr-2015 CLOSING VOLUME MEASUREMENT: PULM FUNCTION TEST BY GAS (06222) DLCO (CARBON MONOXIDE DIFFUSING Status: Completed 19-Apr-2015 CAPACITY) (09789) PRE AND POST (57071) Status: Completed 19-Apr-2015 RESPIRATORY FLOW VOLUME LOOP Status: Completed 02-Aug-2014 (46460) PRE AND POST (47667) Status: Completed 02-Aug-2014 RESPIRATORY FLOW VOLUME LOOP Status: Completed 21-Mar-2014 (13268) PRE AND POST (57311) Status: Completed 21-Mar-2014 MEDICARE RX CODE: AT LEAST ONE Status: Completed 29-May-2013 PRESCRIPTION CREATED DURING THE ENCOUNTER WAS GENERATED AND TRANSMITTED ELECTRONICALLY USING A QUALIFIED ERX SYSTEM (G8553) RESPIRATORY FLOW VOLUME LOOP Status: Completed 10-Apr-2013 (20885) PRE AND POST (36771) Status: Completed 10-Apr-2013 RESPIRATORY FLOW VOLUME LOOP Status: Completed 02-Mar-2013 (98152) SPIROMETRY WITH BRONCHODILATOR Status: Completed 02-Mar-2013 (32965) MEDICARE RX CODE: AT LEAST ONE Status: Completed 07-Oct-2012 PRESCRIPTION CREATED DURING THE ENCOUNTER WAS GENERATED AND TRANSMITTED ELECTRONICALLY USING A QUALIFIED ERX SYSTEM (G8553) REST/EXERCISE OXIMETRY (58496) Status: Completed 07-Oct-2012 RESPIRATORY FLOW VOLUME LOOP Status: Completed 07-Oct-2012 (90474) PRE AND POST W/ RT (60913) Status: Completed 07-Oct-2012 ACT Status: Completed 03-Feb-2011 Comments: 19 Adenoidectomy Status: Completed 1936 Arthroscopic Knee Surgery - Right Status: Completed Bronchoscopy Status: Completed 17-May-2013 Comments: bronchoscopy revealed slight erythema and swelling of the left upper lobe with specimens negative for cytology, negative for Legionella, and positive for Pseudomonas. Carpal Tunnel Surgery - Right Status: Completed Cataract Extraction-Bilateral Status: Completed CBC Status: Completed 19-Nov-2017 Comments: Hemoglobin 10.7, hematocrit 32.7%, white blood cell count 12,900 , rheumatoid factor less than 14,ESR 9, CANDACE negative, alpha-1 antitrypsin phenotype MM, Immunoglobulins normal except for a low value for IgG at 570. CBC Status: Completed 30-May-2013 Comments: Hemoglobin 11.1, hematocrit 32.5%, white blood cell count 10,200 , platelets 644,000, IgE level less than 115, ANCA negative, rheumatoid factor of 14 with normal being less than 14, alpha-1 level of 242 and phenotype M1M2. Chest X-ray Status: Completed 09-Sep-2016 Comments: no acute disease and compared to January 03, 2016 no significant change. Chest X-ray Status: Completed 03-Jan-2016 Comments: no obvious infiltrate, official interpretation and comparison from the radiologist is pending. Chest X-ray Status: Completed 26-Feb-2017 Comments: stable chronic findings, NAD Chest X-ray Status: Completed 04-May-2014 Comments: no obvious infiltrate, official interpretation and comparison from the radiologist is pending. Chest X-ray Status: Completed 15-May-2019 Comments: COPD, NAD Cholecystectomy Status: Completed Apr-2009 Comprehensive Metabolic Panel Status: Completed 06-Apr-2017 Comments: glucose 196, BUN/Cr 44/1.87 CPAP titration Status: Completed 29-Jul-2004 Comments: +[address] chest Status: Completed 28-Feb-2013 Comments: 4.1 cm PARADISE mass with cavitation CT chest Status: Completed 21-Mar-2014 Comments: no obvious change to PARADISE abnormality, official interpretation and comparison from the radiologist is pending. CT chest Status: Completed 21-Apr-2013 Comments: persistent PARADISE abnormality with cavitation, official interpretation and comparison from the radiologist is pending. CT Scan of Chest Status: Completed 17-Nov-2018 Comments: Abnormal. Study is compared to February 16, 2018 and reveals some waxing and waning of abnormalities. CT Scan of Chest Status: Completed 02-Aug-2014 Comments: increased cavitation in PARADISE lesion with 2 new densities-possibly inflammatory/infectious- 6mm RUL and 1.3cm LLL with fu images recommended in 2- [address] Scan of Chest Status: Completed 30-May-2015 Comments: Compared to April 19, 2015 improvement in bilateral lung disease. CT Scan of Chest Status: Completed 06-Jul-2013 Comments: Abnormal. Study is compared to April 21, 2013 and appears to reveal some decrease in her left upper lobe cavitary lesion but she now has some new left lower lobe parenchymal disease. CT Scan of Chest Status: Completed 21-Nov-2013 Comments: Abnormal. Study is compared to July 06, 2013 and shows improvement in the left upper lobe cavitary lesion as well as the irregular left lower lobe disease. CT Scan of Chest Status: Completed 11-Oct-2014 Comments: there appears to be improvement in PARADISE abnormality, no obvious acute disease, official interpretation and comparison from the radiologist is pending. CT Scan of Chest Status: Completed 19-Apr-2015 Comments: Abnormal. Study is compared to October 11, 2014 and reveals an increase in parenchymal disease especially on the right. CT Scan of Chest Status: Completed 26-Aug-2015 Comments: stable RML nodule, scarring and post op changes on right with new small effusion compared to 05/30/15 CT Scan of Chest Status: Completed 16-Feb-2018 Comments: Study is compared to January 08, 2016 and reveals some increase in bilateral parenchymal scarring. CXR Status: Completed 08-Aug-2012 Comments: no acute disease noted, official interpretation and comparison from the radiologist is pending. FeNO Status: Completed 08-Jun-2018 Comments: < 5 ppb FeNO Status: Completed 17-Nov-2017 Comments: 16 FeNO Status: Completed 17-Nov-2018 Comments: 8 ppb FeNO Status: Completed 05-Jun-2019 Comments: 16 ppb FeNO Status: Completed 01-Aug-2018 Comments: 5 ppb Flu Vaccine Status: Completed 19-Mar-2019 Foot Surgery - Right Status: Completed Dec-2016 Hammer Toe/Bone Spur Status: Completed Comments: in August 2016 Lumbar spinal surgery Status: Completed 1999 Comments: removed cyst Lumpectomy Status: Completed Comments: Right. benign ACT Status: Completed 07-Oct-2012 Comments: Moderate Obstruction. FEV1 1.01 L, 64%. improved from 08/08/12 PFT Status: Completed 04-Aug-2011 Comments: Moderate Obstruction. Without Reversibility. PFT Status: Completed 16-Feb-2018 Comments: Abnormal. Mild to moderate airways obstruction with normal lung volumes and severe diffusion defect. pft Status: Completed 01-May-2011 Comments: Moderate Obstruction. With Reversibility. similar to 12/2010 PFT Status: Completed 08-Aug-2012 Comments: mod-severe obstruction, FEV1 0.91 L, 58%. decreased from 01/2012 PFT Status: Completed 09-Sep-2016 Comments: Abnormal. Moderate Obstruction. PFT Status: Completed 08-Jun-2018 Comments: Moderate Obstruction. stable PFT Status: Completed 01-Aug-2018 Comments: Moderate Obstruction. PFT Status: Completed 26-Nov-2015 Comments: Abnormal. Moderate Obstruction. PFT Status: Completed 19-Apr-2015 Comments: Abnormal. Moderate Obstruction. No Restriction. Moderate Diffusion Defect. Airways obstruction is similar to October 11, 2014, lung volumes similar to November 21, 2013, diffusion defect worse than November 21, 2013. PFT Status: Completed 06-Jul-2013 Comments: Abnormal. Moderate Obstruction. Similar to April 10, 2013. PFT Status: Completed 26-Aug-2015 Comments: Moderate Obstruction. Moderate Diffusion Defect. FEV1 1.03 L, 69% . TLC 83, DLCO 54 PFT Status: Completed 21-Mar-2014 Comments: Moderate Obstruction. FEV1 0.99 L, 63% PFT Status: Completed 11-Oct-2014 Comments: Mild Obstruction. FEV1 1.01 L, 72% PFT Status: Completed 02-Mar-2013 Comments: Moderate Obstruction. FEV1 0.96 L, 62%. similar to 10/07/12 PFT Status: Completed 10-Apr-2013 Comments: Mild Obstruction. FEV1 1.08 L, 70%. improved from 03/02/13 PFT Status: Completed 21-Nov-2013 Comments: Abnormal. Moderate Obstruction. No Restriction. Moderate Diffusion Defect. airways obstruction is similar to July 06, 2013, diffusion defect worst than August 17, 2007, and lung volumes remain norm al but are slightly worse than July 02, 2003. PFT Status: Completed 30-Nov-2016 Comments: reduced FVC 68%. small airway obstruction PFT Status: Completed 26-Feb-2017 Comments: Moderate Obstruction. No Restriction. Severe Diffusion Defect. FEV1 1.03, 71%. TLC 82, DLCO 50 PFT Status: Completed 02-Aug-2014 Comments: FEV1 1.15 L, 75%. improved from 03/21/14 PFT Status: Completed 04-Feb-2012 Comments: Moderate Obstruction. FEV1 1.06 L, 68%. stable PFT Status: Completed 17-Apr-2016 Comments: Mild Obstruction. No Restriction. Severe Diffusion Defect. EFV1 1.05, 72%. TLC 79, DLCO 48 PFT Status: Completed 05-Jun-2019 Comments: Abnormal. Moderate Obstruction. Vital capacity 66%. Pneumovax Status: Completed 19-Mar-2016 Polysomnography Status: Completed 12-May-2004 Comments: moderate AHI 26/hr, LS 89% PPD Status: Completed 03-Mar-2013 Comments: Negative. Sputum Analysis Status: Completed Mar-2013 Comments: pseudomonas growth, cytology and afb negative Sputum Culture Status: Completed 08-Feb-2017 Comments: MRSA Sputum Culture Status: Completed 08-Feb-2017 Comments: MRSA Sputum Culture Status: Completed 27-Jul-2018 Comments: acinetobacter baumannii Sputum Culture Status: Completed Apr-2014 Comments: e coli Sputum gram stain C & S Status: Completed 06-May-2017 Comments: normal lizzette Sputum gram stain C & S Status: Completed 21-Apr-2019 Comments: Staphylococcus aureus and pseudomonas aeruginosa Tonsillectomy Status: Completed 1936 VATS Status: Completed 25-Jun-2015 Comments: with Dr. Tejeda with RUL, RML, and RLL wedge biopsies and was noted to have mild emphysema, bronchiolitis and non specific necrotizing granuloma. 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 PRE AND POST ([id number])Result: Hemoptysis: No Status: Completed 17-Nov-2018 CAT SCAN OF CHEST: CT THORAX W/O DYE ([id number])Result: Status: Completed 2018 Are you or could you become ?: No; When was you last CXR/CT?: over week ago; Furniture Shampooer: JUAN Booth PRE AND POST ([id number])Result: Hemoptysis: No Status: Completed 01-Aug-2018 PRE AND POST ([id number])Result: Hemoptysis: No Status: Completed 08-Jun-2018 CAT SCAN OF CHEST: CT THORAX W/O DYE ([id number])Result: Status: Completed 2017 Are you or could you become ?: No; When was you last CXR/CT?: over a week ago; Furniture Shampooer: Piper Chopra, LRT PRE AND POST ([id number])Result: Hemoptysis: No Status: Completed 17-Nov-2017 CHEST X-RAY, PA AND LATERAL ([id number])Result: Are you Status: Completed 2016 or could you become ?: No; When was you last CXR/CT?: over week ago; Furniture Shampooer: Tera Bundy, LRT CHEST X-RAY, PA AND LATERAL ([id number])Result: Are you Date: 30-Nov-2016 or could you become ?: No; When was Status: Completed 2016 you last CXR/CT?: over week ago; Furniture Shampooer: Tera Bundy, LRT CHEST X-RAY, PA AND LATERAL ([id number])Result: Are you Date: 30-Nov-2016 or could you become ?: No; When was Status: Completed 2016 you last CXR/CT?: over week ago; Furniture Shampooer: Comments: [facility] at [facility] Tera Bundy, LRT CHEST X-RAY, PA AND LATERAL ([id number])Result: Are you Status: Completed 2016 or could you become ?: No; When was you last CXR/CT?: OVER WEEK AGO; Furniture Shampooer: Tera Bundy, LRT CT THORAX W/O DYE ([id number])Result: Are you or Status: Completed could you become ?: No; When was you last CXR/CT?: over week ago; Furniture Shampooer: Tera Bundy, LRT CT THORAX W/O DYE ([id number])Result: Are you or Status: Completed could you become ?: No; When was you last CXR/CT?: OVER WEEK AGO; Furniture Shampooer: Tera Bundy, LRT CHEST X-RAY, PA AND LATERAL ([id number])Result: Are you Status: Completed 2015 or could you become ?: No; When was you last CXR/CT?: over week ago; Furniture Shampooer: Tera Bundy, LRT PRE AND POST ([id number])Result: Hemoptysis: No Status: Completed 26-Nov-2015 CT THORAX W/O DYE ([id number])Result: Are you or Status: Completed 2015 could you become ?: No; When was you last CXR/CT?: over a week ago; Furniture Shampooer: Tera Bundy, LRT CAT SCAN OF CHEST: CT THORAX W/O DYE ([id number])Result: Status: Completed 2014 Are you or could you become ?: No; When was you last CXR/CT?: over a week ago; Furniture Shampooer: Tera Bundy, LRT CAT SCAN OF CHEST: CT THORAX W/O DYE ([id number])Result: Status: Completed 2014 Are you or could you become ?: No; When was you last CXR/CT?: 2014; Furniture Shampooer: Guero Flaherty, LRT CAT SCAN OF CHEST: CT THORAX W/O DYE ([id number])Result: Status: Completed 2014 Are you or could you become ?: No; When was you last CXR/CT?: OVER 1 WEEK AGO; Furniture Shampooer: Tera Bundy, LRT CT THORAX W/O DYE ([id number])Result: Are you or Status: Completed could you become ?: No; When was you last CXR/CT?: 04/01; Furniture Shampooer: Guero Flaherty, LRT CHEST X-RAY, PA AND LATERAL ([id number])Result: Are you Status: Completed 2013 or could you become ?: No; When was you last CXR/CT?: over 2 months ago; Furniture Shampooer: Tera Bundy, LRT CT THORAX W/O DYE ([id number])Result: Are you or Status: Completed 2013 could you become ?: No; When was you last CXR/CT?: last month; Furniture Shampooer: Tera Bundy, LRT CT THORAX W/O DYE ([id number])Result: Are you or Date: 21-Nov-2013 could you become ?: No; When was you last Status: Completed 2013 CXR/CT?: last month; Furniture Shampooer: Guero Flaherty, LRT CAT SCAN OF CHEST: CT THORAX W/O DYE ([id number])Result: Status: Completed 2012 Are you or could you become ?: No; Furniture Shampooer: Rosalinda Rodriguez LPN CT THORAX W/O DYE ([id number])Result: Are you or Status: Completed 2012 could you become ?: No; Furniture Shampooer: JUAN Booth ACT: ASSESSMENT OF DISEASE: ASTHMA SYMPTOMS EVALUATE Date: 07-Oct-2012 (1005F)Result: [Questions] In the past 4 weeks, how much of the time did your asthma keep you from getting as much done at work, school, or home?: 5; During the past 4 weeks, how often have you had shortness of breath?: 1; During the past 4 weeks, how often did your asthma symptoms (wheezing, coughing, shortness of breath, chest tightness, or pain) wake you up at night or earlier than usual in the morning?: 4; During the past 4 weeks, how often have you used your rescue inhaler or nebulizer medication (such as albuterol)?: 4; How would you rate your asthma control during the past 4 weeks?: 3 [Total ACT Score] Score: 17 CHEST X-RAY, PA AND LATERAL ([id number])Result: Are you Status: Completed 2012 or could you become ?: No; Furniture Shampooer: JUAN Booth Asthma Control Test (ACT)Result: [Questions] In the Date: 04-Feb-2012 past 4 weeks, how much of the time did your asthma keep you from getting as much done at work, school, or home?: 3; During the past 4 weeks, how often have you had shortness of breath?: 3; During the past 4 weeks, how often did your asthma symptoms (wheezing, coughing, shortness of breath, chest tightness, or pain) wake you up at night or earlier than usual in the morning?: 5; During the past 4 weeks, how often have you used your rescue inhaler or nebulizer medication (such as albuterol)?: 5; How would you rate your asthma control during the past 4 weeks?: 3 [Total ACT Score] Score: 19 RESPIRATORY FLOW VOLUME LOOP (63507)Result: Date: 04-Aug-2011 Hemoptysis: No; Medication Used: Albuterol 0.083% kendell aerosol; Factorer: Reji Montelongo RRT RESPIRATORY FLOW VOLUME LOOP (68400)Result: Date: 01-May-2011 Hemoptysis: No; Medication Used: Albuterol 0.083% kendell aerosol; Factorer: Yael Aragon LPN Immunizations Influenza (3 years and up) On: Apr-2011 Influenza (3 years and up) On: May-2012 Influenza (3 years and up) On: Mar-2013 Influenza (3 years and up) On: Mar-2013 Influenza (3 years and up) On: Feb-2014 Influenza (3 years and up) On: 19-Mar-2015 Comments:approx. date Influenza (3 years and up) On: 02-Apr-2015 Comments:date approx. Pneumococcal (2 yrs and up) PPSV23 On: 2009 TB Skin Test, Intradermal On: 03-Mar-2013 Lot #: [id number] Family History Allergic Rhinitis Status: Active Comments: Father. Emphysema Status: Active Comments: Father. Social History Alcohol use: Occasional alcohol use. Current work status: Retired. Marital status: . No caffeine use No drug use Tobacco use: Never smoker. Never smoker Female Plan of Treatment CAT SCAN OF CHEST: CT THORAX W/O DYE Start: 05-Jul-2019 Intent (01638) REST OXIMETRY (47506) Start: 05-Jun-2019 Intent SIMPLE PFT: BASELINE PULMONARY Start: 05-Jun-2019 Intent FUNCTION TEST (PFT) (02666) REST OXIMETRY (93080) Start: 17-Nov-2018 Intent CONTINUOUS OVERNIGHT OXIMETRY Start: 08-Jun-2018 Intent (42358) Comments: on cpap REST OXIMETRY (66252) Start: 16-Feb-2018 Intent EXHALED NITRIC OXIDE MEASUREMENT Start: 17-Nov-2017 Intent (88737) Comments: Evaluated patient's nitric oxide. The results were 16 ppb RESPIRATORY FLOW VOLUME LOOP (37212) Start: 30-Nov-2016 Intent SIMPLE PFT: BASELINE PULMONARY Start: 30-Nov-2016 Intent FUNCTION TEST (PFT) (23336) REST OXIMETRY (25464) Start: 09-Sep-2016 Intent REST OXIMETRY (39219) Start: 26-Nov-2015 Intent REST OXIMETRY (00558) Start: 19-Apr-2015 Intent RESPIRATORY FLOW VOLUME LOOP (00397) Start: 11-Oct-2014 Intent PRE AND POST (87899) Start: 11-Oct-2014 Intent REST/ EXERCISE OXIMETRY (34172) Start: 21-Nov-2013 Intent TOTAL VITAL CAPACITY (14030) Start: 21-Nov-2013 Intent TOTAL BODY PLETHYSMOGRAPHY (48872) Start: 21-Nov-2013 Intent TGV THORACIC GAS VOLUME: AIRWAY Start: 21-Nov-2013 Intent CLOSING VOLUME MEASUREMENT: PULM FUNCTION TEST BY GAS (80788) RESPIRATORY FLOW VOLUME LOOP (07225) Start: 21-Nov-2013 Intent DLCO (CARBON MONOXIDE DIFFUSING Start: 21-Nov-2013 Intent CAPACITY) (56479) AIRFLOW RESISTANCE MEASUREMENT: PULM Start: 21-Nov-2013 Intent FUNCT TEST OSCILLOMETRY (31152) PRE AND POST (09513) Start: 21-Nov-2013 Intent REST OXIMETRY (14597) Start: 06-Jul-2013 Intent RESPIRATORY FLOW VOLUME LOOP (63459) Start: 06-Jul-2013 Intent PRE AND POST (61564) Start: 06-Jul-2013 Intent BRONCHOSCOPY IN ENDO (48146) Start: 12-May-2013 Intent REST/ EXERCISE OXIMETRY (39586) Start: 02-Mar-2013 Intent ACT: ASSESSMENT OF DISEASE: ASTHMA Start: 02-Mar-2013 Intent SYMPTOMS EVALUATE (1005F) REST/EXERCISE OXIMETRY (56281) Start: 08-Aug-2012 Intent RESPIRATORY FLOW VOLUME LOOP (34748) Start: 08-Aug-2012 Intent PRE/POST (43294) Start: 08-Aug-2012 Intent RESPIRATORY FLOW VOLUME LOOP (90802) Start: 04-Feb-2012 Intent EXERCISE OXIMETRY (51729) Start: 04-Feb-2012 Intent REST OXIMETRY (66782) Start: 04-Feb-2012 Intent PRE/POST (73148) Start: 04-Feb-2012 Intent PRE/POST W/ RT (08284) Start: 04-Aug-2011 Intent REST OXIMETRY (26517) Start: 04-Aug-2011 Intent EXERCISE OXIMETRY (82833) Start: 04-Aug-2011 Intent Pre/Post (91928) Start: 01-May-[address]; [address] SCAN CHEST - Start: 01-Aug-2019 13:00 [facility]ointment [facility]; FULL PFT 30 - R/O, FeNo Start: 01-Aug-2019 13:15 Appointment Request [facility]; FOLLOW UP 15 - Fu 15, Full, FeNo, R/O, CT Start: 01-Aug-2019 14:15 Appointment [facility] DO Denver Hudson [employer] (49367) Start: 05-Jun-2019 12:32 Request SPUTUM CULTURE (50371) Start: 05-Jun-2019 12:32 Request SPUTUM CULTURE (95591) Start: 20-Apr-2019 10:48 Request BUN (BLOOD UREA NITROGEN) (82070) Start: 16-Aug-2018 10:40 Request CREATININE BLOOD (07017) Start: 16-Aug-2018 10:40 Request SPUTUM CULTURE (08000) Start: 11-Aug-2018 11:01 Request SPUTUM CULTURE (01515) Start: 29-Jul-2018 10:01 Request CANDACE SCREEN (26111) Start: 17-Nov-2017 14:20 Request RHEUMATOID FACTOR-QUANT (87141) Start: 17-Nov-2017 14:20 Request SED RATE ERYTHROCYTE (85614) Start: 17-Nov-2017 14:20 Request Comments: ICD 279.49 RHEUMATOID FACTOR-QUANT (43048) Start: 17-Nov-2017 14:19 Request USPLH-9-MEAHFQCSIMR-TOTAL (09710) Start: 17-Nov-2017 14:19 Request VWOGM-3-YDCQCLFSIDB-PHEN (44107) Start: 17-Nov-2017 14:19 Request QUANTATATIVE IMMUNOGLOBULINS (90417) Start: 17-Nov-2017 14:15 Request IMMUNOGLOBULIN E (IgE) (41665) Start: 17-Nov-2017 14:15 Request CBC, PLATELETS & AUT DIFF (12759) Start: 17-Nov-2017 14:15 Request SPUTUM CULTURE (89261) Start: 03-May-2017 14:34 Request CBC, PLATELETS & AUT DIFF (55070) Start: 26-Feb-2017 10:15 Request QUANTATATIVE IMMUNOGLOBULINS (11410) Start: 26-Feb-2017 10:15 Request IMMUNOGLOBULIN E (IgE) (81426) Start: 26-Feb-2017 10:15 Request ASTHMA (Renamed from AIRWAY HYPERREACTIVITY) : FeNO next visit Indication:ASTHMA (Renamed from AIRWAY HYPERREACTIVITY) DYSPNEA : FeNO next visit Indication:DYSPNEA ASTHMA (Renamed from AIRWAY HYPERREACTIVITY) : Keep upcoming appt as scheduled Indication:ASTHMA (Renamed from AIRWAY HYPERREACTIVITY) OBESITY (Renamed from OBESE) : Weight loss encouraged Indication:OBESITY (Renamed from OBESE) OBSTRUCTIVE SLEEP APNEA : We'll call with results Indication:OBSTRUCTIVE SLEEP APNEA ASTHMA (Renamed from AIRWAY HYPERREACTIVITY) : Keep upcoming appt as scheduled Indication:ASTHMA (Renamed from AIRWAY HYPERREACTIVITY) BACTERIAL INFECTION DUE TO PSEUDOMONAS : Start flutter device- faxed to [facility] Indication:BACTERIAL INFECTION DUE TO PSEUDOMONAS ASTHMA (Renamed from AIRWAY HYPERREACTIVITY) : Continue with Spiriva with 2.5mcg samples to replace low dose for a trial Indication:ASTHMA (Renamed from AIRWAY HYPERREACTIVITY) OBSTRUCTIVE SLEEP APNEA : Change to auto titrating CPAP- faxed to [facility] already Indication:OBSTRUCTIVE SLEEP APNEA ASTHMA (Renamed from AIRWAY HYPERREACTIVITY) : FeNO next visit Indication:ASTHMA (Renamed from AIRWAY HYPERREACTIVITY) ASTHMA (Renamed from AIRWAY HYPERREACTIVITY) : FeNO next visit Indication:ASTHMA (Renamed from AIRWAY HYPERREACTIVITY) ASTHMA (Renamed from AIRWAY HYPERREACTIVITY) : SINAN Valencia- Dr. Denver Hudson Indication:ASTHMA (Renamed from AIRWAY HYPERREACTIVITY) OBESITY (Renamed from OBESE) : Weight loss may help Indication:OBESITY (Renamed from OBESE) ASTHMA (Renamed from AIRWAY HYPERREACTIVITY) : We'll call with results Indication:ASTHMA (Renamed from AIRWAY HYPERREACTIVITY) ASTHMA (Renamed from AIRWAY HYPERREACTIVITY) : Keep upcoming appt as scheduled Indication:ASTHMA (Renamed from AIRWAY HYPERREACTIVITY) OBESITY (Renamed from OBESE) : Weight loss may help Indication:OBESITY (Renamed from OBESE) ASTHMA (Renamed from AIRWAY HYPERREACTIVITY) : SINAN Valecnia- Dr. Denver Hudson Indication:ASTHMA (Renamed from AIRWAY HYPERREACTIVITY) ASTHMA (Renamed from AIRWAY HYPERREACTIVITY) : Keep upcoming appt as scheduled , but cancel CXR Indication:ASTHMA (Renamed from AIRWAY HYPERREACTIVITY) GERD (GASTROESOPHAGEAL REFLUX DISEASE) : Hold PPI due to patient concerns about side effect potential Indication:GERD (GASTROESOPHAGEAL REFLUX DISEASE) ASTHMA (Renamed from AIRWAY HYPERREACTIVITY) : SINAN Valencia- Dr. 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 ABNORMAL FINDING ON LUNG IMAGING : Keep upcoming appt as scheduled Indication:ABNORMAL FINDING ON LUNG IMAGING ABNORMAL FINDING ON LUNG IMAGING : SINAN HUDSON ONLY Indication:ABNORMAL FINDING ON LUNG IMAGING BACTERIAL INFECTION DUE TO PSEUDOMONAS : Continue VJ Indication:BACTERIAL INFECTION DUE TO PSEUDOMONAS ASTHMA (Renamed from AIRWAY HYPERREACTIVITY) : EITHER - Tristan patient with Tristan in office Indication:ASTHMA (Renamed from AIRWAY HYPERREACTIVITY) ASTHMA (Renamed from AIRWAY HYPERREACTIVITY) : Keep upcoming appt as scheduled Indication:ASTHMA (Renamed from AIRWAY HYPERREACTIVITY) ASTHMA (Renamed from AIRWAY HYPERREACTIVITY) : EITHER - Tristan patient Indication:ASTHMA (Renamed from AIRWAY HYPERREACTIVITY) ASTHMA (Renamed from AIRWAY HYPERREACTIVITY) : Influenza vaccine seasonally - current Indication:ASTHMA (Renamed from AIRWAY HYPERREACTIVITY) ABNORMAL FINDING ON LUNG IMAGING : FU EITHER - Tristan patient with MD in office (end jul [address] chest) Indication:ABNORMAL FINDING ON LUNG IMAGING PULMONARY NODULE : FU EITHER - Tristan patient Indication:PULMONARY NODULE PULMONARY NODULE : CT chest soon Indication:PULMONARY NODULE ASTHMA (Renamed from AIRWAY HYPERREACTIVITY) : EITHER - Tristan patient Indication:ASTHMA (Renamed from AIRWAY HYPERREACTIVITY) ASTHMA (Renamed from AIRWAY HYPERREACTIVITY) : Influenza vaccine seasonally - current Indication:ASTHMA (Renamed from AIRWAY HYPERREACTIVITY) ASTHMA (Renamed from AIRWAY HYPERREACTIVITY) : EITHER - Tristan patient Indication:ASTHMA (Renamed from AIRWAY HYPERREACTIVITY) ASTHMA (Renamed from AIRWAY HYPERREACTIVITY) : Influenza vaccine seasonally - current Indication:ASTHMA (Renamed from AIRWAY HYPERREACTIVITY) ALLERGIC RHINITIS : Envirnmental controls Indication:ALLERGIC RHINITIS ALLERGIC RHINITIS : Continue current medications Indication:ALLERGIC RHINITIS GERD (GASTROESOPHAGEAL REFLUX DISEASE) : Avoid triggers Indication:GERD (GASTROESOPHAGEAL REFLUX DISEASE) GERD (GASTROESOPHAGEAL REFLUX DISEASE) : Continue current medications Indication:GERD (GASTROESOPHAGEAL REFLUX DISEASE) ASTHMA (Renamed from AIRWAY HYPERREACTIVITY) : Follow up in 3 months Indication:ASTHMA (Renamed from AIRWAY HYPERREACTIVITY) ASTHMA (Renamed from AIRWAY HYPERREACTIVITY) : EITHER Indication:ASTHMA (Renamed from AIRWAY HYPERREACTIVITY) OBESITY (Renamed from OBESE) : Weight Loss Indication:OBESITY (Renamed from OBESE) OBSTRUCTIVE SLEEP APNEA : discussed need to have cpap available if hospitalized Indication:OBSTRUCTIVE SLEEP APNEA OBSTRUCTIVE SLEEP APNEA : Discussed need to notify all physicians of their diagnosis Indication:OBSTRUCTIVE SLEEP APNEA OBSTRUCTIVE SLEEP APNEA : Discussed possible health risks associated with untreated sleep apnea Indication:OBSTRUCTIVE SLEEP APNEA OBSTRUCTIVE SLEEP APNEA : Discussed possible cardiovascular effects of untreated sleep apnea Indication:OBSTRUCTIVE SLEEP APNEA OBSTRUCTIVE SLEEP APNEA : Continue with Cpap therapy Indication:OBSTRUCTIVE SLEEP APNEA ASTHMA (Renamed from AIRWAY HYPERREACTIVITY) : Call with symptoms Indication:ASTHMA (Renamed from AIRWAY HYPERREACTIVITY) ASTHMA (Renamed from AIRWAY HYPERREACTIVITY) : New device instructed by staff Indication:ASTHMA (Renamed from AIRWAY HYPERREACTIVITY) ASTHMA (Renamed from AIRWAY HYPERREACTIVITY) : Influenza vaccine in Fall- ALREADY DONE PER PATIENT Indication:ASTHMA (Renamed from AIRWAY HYPERREACTIVITY) Results IMMUNOGLOBULIN E (IgE) Ordered On: 05-Jun-2019 ([id number]) IGE @ 565 kU/L (Abnormal) Comments: Unless otherwise specified, testing performed by [email or web address] [address] [place] [address] [id number] CBC, PLATELETS & AUT DIFF Ordered On: 05-Jun-2019 ([id number]) BASO # 0.0 10*3/uL Range: 0.0 10*3/uL - 0.2 10*3/uL (Normal) Comments: Unless otherwise specified, testing performed by [email or web address] [address] [place] [address] [id number] EOS # 0.0 10*3/uL Range: 0.0 10*3/uL - 0.5 10*3/uL (Normal) MONO # 0.6 10*3/uL Range: 0.0 10*3/uL - 0.8 10*3/uL (Normal) BASO % 0.3 % (Normal) Range: 0.0 % - 4.0 % LYMPH # 2.3 10*3/uL Range: 1.2 10*3/uL - 4.8 10*3/uL (Normal) NEUT # 12.3 10*3/uL Range: 1.8 10*3/uL - 7.7 10*3/uL (Abnormal) EOS % 0.1 % (Normal) Range: 0.0 % - 5.0 % MONO % 4.0 % (Normal) Range: 0.0 % - 8.0 % LYMPH % 15.1 % (Abnormal) Range: 16.0 % - 52.0 % MPV 6.8 fL (Abnormal) Range: 7.1 fL - 10.7 fL NEUT % 80.5 % (Abnormal) Range: 35.0 % - 75.0 % PLT 462 10*3/uL Range: 150 10*3/uL - 450 10*3/uL (Abnormal) RDW 15.6 % (Abnormal) Range: 10.5 % - 14.5 % MCH 28.4 pg (Normal) Range: 27.0 pg - 32.0 pg MCHC 32.8 g/dL (Normal) Range: 32.0 g/dL - 36.0 g/dL MCV 86.7 fL (Normal) Range: 80.0 fL - 95.0 fL HCT 33.0 % (Abnormal) Range: 36.0 % - 47.0 % HGB 10.8 g/dL (Abnormal) Range: 12.0 g/dL - 16.0 g/dL RBC 3.81 10*6/uL Range: 4.00 10*6/uL - 5.40 10*6/uL (Abnormal) WBC 15.2 10*3/uL Range: 4.1 10*3/uL - 11.0 10*3/uL (Abnormal) QUANTATATIVE Ordered On: 05-Jun-2019 IMMUNOGLOBULINS (16920) IGM @ 117 mg/dL (Normal) Range: 40 mg/dL - 248 mg/dL Comments: Unless otherwise specified, testing performed by [facility] [address] [place] [address] [id number] IGA @ 352 mg/dL (Normal) Range: 71 mg/dL - 374 mg/dL IGG @ 828 mg/dL (Normal) Range: 700 mg/dL - 1600 mg/dL SPUTUM CULTURE (97222) Ordered On: 09-May-2014 CULTURE, SPUTUM pseudomonas (Normal) SPUTUM CULTURE (69510) Ordered On: 20-Apr-2014 CULTURE, SPUTUM e coli Comments: see scanned doc (Normal) PTUAT-3-OYWYPNHQBJE-TOTAL Ordered On: 29-May-2013 ([id number]) IKYHV-0-IKUZSSFVXDW-TOTAL see scanned doc (Normal) FBIZK-5-BHIHSKYQIQE-PHEN Ordered On: 29-May-2013 ([id number]) IZZNT-0-UXWQZMFSOUU-PHEN MM (Normal) IMMUN SUBCLAS-IGG1,2,3 & 4 Ordered On: 29-May-2013 (22379) IMMUN SUBCLAS-IGG1,2,3 & 4 see scanned doc (Normal) RHEUMATOID FACTOR-QUANT Ordered On: 29-May-2013 ([id number]) RHEUMATOID FACTOR-QUANT Range: 0 [iU] - 15 [iU] see scanned doc [iU] (Normal) ANCA C&P W/REFLEX (65360) Ordered On: 29-May-2013 ANCA - C see scanned doc (Normal) CBC & PLATELETS (AUTO) Ordered On: 29-May-2013 (17896) BLOOD COUNT, PLATELET, AUTOMATED see scanned doc (Normal) CBC COMMENTS see scanned doc (Normal) HCT (HEMATOCRIT) see Range: 42.9 % - 49.1 % scanned doc % (Normal) HGB (HEMOGLOBIN) see Range: 14.4 g/dL - 16.6 g/dL scanned doc g/dL (Normal) MCH (MEAN CORPUSCULAR Range: 27 pg - 31 pg HEMOGLOBIN) see scanned doc pg (Normal) MCHC (MEAN CORPUSCULAR Range: 33 g/dL - 37 g/dL HEMOGLOBIN CONCENTRATI see scanned doc g/dL (Normal) MCV (MEAN CORPUSCULAR Range: 76 um3 - 100 um3 VOLUME) see scanned doc um3 (Normal) RBC see scanned doc Range: 4.73 10*6/uL - 5.49 10*6/uL 10*6/uL (Normal) RDW (RED CELL DISTRIBUTION WIDTH) see scanned doc (Normal) WBC see scanned doc Range: 4.5 10*9{Cells}/L - 11.0 10*9{Cells}/L 10*9{Cells}/L (Normal) IMMUNOGLOBULIN E (IgE) Ordered On: 29-May-2013 ([id number]) IMMUNOGLOBULIN E (IgE) Range: 0 mg/dL - 380 mg/dL see scanned doc mg/dL (Abnormal) ACID FAST CUL/SMEAR Ordered On: 17-May-2013 ACID FAST CUL/SMEAR See Comments: SPECIMEN DESCRIPTION Note (Normal) BRONCHIAL WASHINGSSPECIAL REQUESTS ...ACID FAST SMEAR NO ACID FAST BACILLI (CONCENTRATED SMEAR)CULTURE RESULTS NO ACID FAST BACILLI ISOLATED AFTER 8 WEEKSREPORT STATUS FINAL 07/12/2013Unless otherwise specified, testing performed by [facility] [address] [place] [address] [id number] FUNGUS CULTURE Ordered On: 17-May-2013 FUNGUS CULTURE See Note Comments: SPECIMEN DESCRIPTION (Normal) BRONCHIAL WASHINGSSPECIAL REQUESTS NONECULTURE RESULTS BROOKE ALBICANSREPORT STATUS FINAL 06/14/2013Unless otherwise specified, testing performed by [facility] [address] [place] [address] [id number] LEGIONELLA CULTURE Ordered On: 17-May-2013 LEGIONELLA CULTURE See Comments: SPECIMEN DESCRIPTION Note (Normal) BRONCHIAL WASHINGSSPECIAL REQUESTS NONECULTURE RESULTS CULTURE DISCONTINUED DUE TO BACTERIAL CONTAMINAT IONREPORT STATUS FINAL 05/19/2013Unless otherwise specified, testing performed by [facility] [address] [place] [address] [id number] LEGIONELLA DFA Ordered On: 17-May-2013 LEGIONELLA DFA See Note Comments: SPECIMEN DESCRIPTION (Normal) BRONCHIAL WASHINGSSPECIAL REQUESTS NONERESULT NEGATIVE FOR LEGIONELLA PNEUMOPHILA BY DFAREPORT STATUS FINAL 05/17/2013Unless otherwise specified, testing performed by [facility] [address] [place] [address] [id number] RESPIRATORY CULTURE Ordered On: 17-May-2013 RESPIRATORY CULTURE See Comments: SPECIMEN DESCRIPTION Note (Normal) BRONCHIAL WASHINGSSPECIAL REQUESTS ...GRAM STAIN MANY (>25/LPF) WHITE BLOOD CELLS FEW (<10/LPF) EPITHELIAL CELLS MANY (>10/OIF) GRAM NEGATIVE RODS MODERATE (5 TO 10/OIF) GRAM POSITIVE COCCICULTURE RESULTS MODERATE PSEUDOMONAS AERUGINOSAPIP/BETZAIDA RESULTS CONFIRMED BY ALTERNATE METHOD REPORT STATUS FINAL 05/21/2013ORGANISM PSEUDOMONAS AERUGINOSAMETHOD MICCEFEPIME 4 SUSCEPTIBLECEFTAZIDIME 4 SUSCEPTIBLECIPROFLOXACIN 0.5 SUSCEPTIBLE MOXIFLOXACIN CAN NOT BE USED TO TREAT INFECTION S CAUSED BY PSEUDOMONAS SPECIES. GENTAMICIN <=1 SUSCEPTIBLEIMIPENEM 2 SUSCEPTIBLEPIPERACILLIN/TAZOBACTAM 32 INTERMEDIATETOBRAMYCIN <=1 SUSCEPTIBLEUnless otherwise specified, testing performed by [facility] [address] [place] [id number] PT (PROTHROMBIN TIME) Ordered On: 12-May-2013 ([id number]) INR 0.95 (Normal) Comments: SUGGESTED THERAPEUTIC RANGES USING INR FORSTABILIZED ANTICOAGULATED PATIENTS:STANDARD DOSE THERAPY INR 2.0-3.0 DVT, PE, PREVENT DVT OR EMBOLISMHIGH DOSE THERAPY INR 2.5-3.5 PREVENT EMBOLISM FROM MECHANICAL HEART VALVEUnless otherwise specified, testing performed by [facility] [address] [place] [id number] PT 10.5 {SEC} (Normal) Range: 9.2 {SEC} - 11.9 {SEC} PLATELET COUNT (58370) Ordered On: 12-May-2013 PLT 301 10*3/uL (Normal) Range: 150 10*3/uL - 400 10*3/uL Comments: Unless otherwise specified, testing performed by [facility] [place] [address] PTT (ACTIVATED PARTIAL Ordered On: 12-May-2013 THROMBOPLASTIN TIME) ([id number]) APTT 27.1 {SEC} (Normal) Range: 22.0 {SEC} - 32.6 {SEC} Comments: Unless otherwise specified, testing performed by [facility] [place] [address] SKIN TEST INTRADERMAL TB Ordered On: 03-Mar-2013 Comments: LA LOT# [id number] EXP : ([id number]) 03/2014 SKIN TEST INTRADERMAL TB Comments: negative negative (Normal) [employer] ([id number]) Ordered On: 02-Mar-2013 Comments: x 3 TUBERCLE CULTURE negative Comments: also negative on 03/06 (Normal) and 03/07 samples collected [facility] CYTOLOGY ([id number]) Ordered On: 06-Mar-2013 SPUTUM CYTOLOGY negative Comments: on both 03/06 and 03/07 (Normal) samples collected [employer]UM CULTURE ([id number]) Ordered On: 02-Mar-2013 CULTURE, SPUTUM abnormal Comments: pseudomonas growth on (Normal) 03/02 and 03/06 samples collected Vital Signs 05-Jun-2019 12:06 Temperature 97.1 f Comments: Method: Tympanic Pulse 78 /min Comments: Pattern: Regular Respiration Rate 14 /min Comments: Pattern: Unlabored O2 SAT 98 % Comments: Room air BP Systolic 132 mm[Hg] Comments: Patient Position: Sitting; Cuff Location: Left Arm; Cuff Size: Standard BP Diastolic 70 mm[Hg] Comments: Patient Position: Sitting; Cuff Location: Left Arm; Cuff Size: Standard Weight 183 lb Height 59 in BMI 36.96 kg/m2 BSA 1.78 m2 17-Nov-2018 13:29 Temperature 97.5 f Comments: Method: Tympanic Pulse 76 /min Comments: Pattern: Regular Respiration Rate 16 /min Comments: Pattern: Unlabored O2 SAT 97 % Comments: Room air BP Systolic 134 mm[Hg] Comments: Patient Position: Sitting; Cuff Location: Left Arm; Cuff Size: Standard BP Diastolic 76 mm[Hg] Comments: Patient Position: Sitting; Cuff Location: Left Arm; Cuff Size: Standard Weight 177 lb Height 59 in BMI 35.75 kg/m2 BSA 1.75 m2 01-Aug-2018 9:17 Temperature 98.3 f Comments: Method: Tympanic Pulse 106 /min Comments: Pattern: Regular Respiration Rate 18 /min Comments: Pattern: Unlabored O2 SAT 96 % Comments: Room air BP Systolic 132 mm[Hg] Comments: Patient Position: Sitting; Cuff Location: Left Arm; Cuff Size: Standard BP Diastolic 74 mm[Hg] Comments: Patient Position: Sitting; Cuff Location: Left Arm; Cuff Size: Standard Weight 183 lb Height 59 in BMI 36.96 kg/m2 BSA 1.78 m2 08-Jun-2018 10:44 Comments: Exerational sat room air 96% Temperature 96.1 f Comments: Method: Tympanic Pulse 67 /min Comments: Pattern: Regular Respiration Rate 16 /min Comments: Pattern: Unlabored O2 SAT 98 % Comments: Room air BP Systolic 126 mm[Hg] Comments: Patient Position: Sitting; Cuff Location: Left Arm; Cuff Size: Standard BP Diastolic 70 mm[Hg] Comments: Patient Position: Sitting; Cuff Location: Left Arm; Cuff Size: Standard Weight 177 lb Height 58 in BMI 36.99 kg/m2 BSA 1.73 m2 16-Feb-2018 11:09 Temperature 97.3 f Comments: Method: Tympanic Pulse 71 /min Comments: Pattern: Regular Respiration Rate 16 /min Comments: Pattern: Unlabored O2 SAT 98 % Comments: Room air BP Systolic 136 mm[Hg] Comments: Patient Position: Sitting; Cuff Location: Left Arm; Cuff Size: Large BP Diastolic 78 mm[Hg] Comments: Patient Position: Sitting; Cuff Location: Left Arm; Cuff Size: Large Weight 178 lb Height 59 in BMI 35.95 kg/m2 BSA 1.76 m2 17-Nov-2017 13:50 Temperature 98.8 f Comments: Method: Tympanic Pulse 93 /min Comments: Pattern: Regular Respiration Rate 16 /min Comments: Pattern: Unlabored O2 SAT 93 % Comments: Room air BP Systolic 142 mm[Hg] Comments: Patient Position: Sitting; Cuff Location: Left Arm; Cuff Size: Standard BP Diastolic 80 mm[Hg] Comments: Patient Position: Sitting; Cuff Location: Left Arm; Cuff Size: Standard Weight 168 lb Height 59 in BMI 33.93 kg/m2 BSA 1.71 m2 26-Feb-2017 9:43 Temperature 96.7 f Comments: Method: Tympanic Pulse 62 /min Comments: Pattern: Regular Respiration Rate 16 /min Comments: Pattern: Unlabored O2 SAT 98 % Comments: Room air BP Systolic 126 mm[Hg] Comments: Patient Position: Sitting; Cuff Location: Left Arm; Cuff Size: Standard BP Diastolic 74 mm[Hg] Comments: Patient Position: Sitting; Cuff Location: Left Arm; Cuff Size: Standard Weight 177 lb Height 59 in BMI 35.75 kg/m2 BSA 1.75 m2 30-Nov-2016 15:04 Temperature 96.5 f Comments: Method: Tympanic Pulse 68 /min Comments: Pattern: Regular Respiration Rate 17 /min Comments: Pattern: Unlabored O2 SAT 98 % Comments: Room air BP Systolic 140 mm[Hg] Comments: Patient Position: Sitting; Cuff Location: Left Arm; Cuff Size: Standard BP Diastolic 72 mm[Hg] Comments: Patient Position: Sitting; Cuff Location: Left Arm; Cuff Size: Standard Weight 185 lb Height 58 in BMI 38.66 kg/m2 BSA 1.76 m2 09-Sep-2016 13:54 Temperature 97.8 f Comments: Method: Tympanic Pulse 94 /min Comments: Pattern: Regular Respiration Rate 16 /min Comments: Pattern: Unlabored O2 SAT 98 % Comments: Room air BP Systolic 134 mm[Hg] Comments: Patient Position: Sitting; Cuff Location: Left Arm; Cuff Size: Standard BP Diastolic 76 mm[Hg] Comments: Patient Position: Sitting; Cuff Location: Left Arm; Cuff Size: Standard Weight 183 lb Height 59 in BMI 36.96 kg/m2 BSA 1.78 m2 17-Apr-2016 14:31 Temperature 97.8 f Comments: Method: Tympanic Pulse 76 /min Comments: Pattern: Regular Respiration Rate 16 /min Comments: Pattern: Unlabored O2 SAT 98 % Comments: Room air BP Systolic 132 mm[Hg] Comments: Patient Position: Sitting; Cuff Location: Right Arm; Cuff Size: Large BP Diastolic 78 mm[Hg] Comments: Patient Position: Sitting; Cuff Location: Right Arm; Cuff Size: Large Weight 184 lb Height 59 in BMI 37.16 kg/m2 BSA 1.78 m2 03-Jan-2016 8:17 Temperature 98 f Comments: Method: Tympanic Pulse 76 /min Comments: Pattern: Regular Respiration Rate 16 /min Comments: Pattern: Unlabored O2 SAT 96 % Comments: Room air BP Systolic 144 mm[Hg] Comments: Patient Position: Sitting; Cuff Location: Right Arm; Cuff Size: Large BP Diastolic 76 mm[Hg] Comments: Patient Position: Sitting; Cuff Location: Right Arm; Cuff Size: Large Weight 178 lb Height 59 in BMI 35.95 kg/m2 BSA 1.76 m2 26-Nov-2015 14:43 Temperature 97.4 f Comments: Method: Tympanic Pulse 74 /min Comments: Pattern: Regular Respiration Rate 16 /min Comments: Pattern: Unlabored O2 SAT 95 % Comments: Room air BP Systolic 140 mm[Hg] Comments: Patient Position: Sitting; Cuff Location: Left Arm; Cuff Size: Large BP Diastolic 78 mm[Hg] Comments: Patient Position: Sitting; Cuff Location: Left Arm; Cuff Size: Large Weight 180 lb Height 59 in BMI 36.36 kg/m2 BSA 1.76 m2 26-Aug-2015 11:41 Temperature 98.6 f Comments: Method: Tympanic Pulse 76 /min Comments: Pattern: Regular Respiration Rate 14 /min Comments: Pattern: Unlabored O2 SAT 97 % Comments: Room air BP Systolic 150 mm[Hg] Comments: Patient Position: Sitting; Cuff Location: Left Arm; Cuff Size: Standard BP Diastolic 70 mm[Hg] Comments: Patient Position: Sitting; Cuff Location: Left Arm; Cuff Size: Standard Weight 179 lb Height 59 in BMI 36.15 kg/m2 BSA 1.76 m2 30-May-2015 12:45 Temperature 97.8 f Comments: Method: Tympanic Pulse 78 /min Comments: Pattern: Regular Respiration Rate 18 /min Comments: Pattern: Unlabored O2 SAT 97 % Comments: Room air BP Systolic 138 mm[Hg] Comments: Patient Position: Sitting; Cuff Location: Right Arm; Cuff Size: Large BP Diastolic 64 mm[Hg] Comments: Patient Position: Sitting; Cuff Location: Right Arm; Cuff Size: Large Weight 177 lb Height 59 in BMI 35.75 kg/m2 BSA 1.75 m2 06-May-2015 11:50 Temperature 96.7 f Comments: Method: Tympanic Pulse 64 /min Comments: Pattern: Regular Respiration Rate 18 /min Comments: Pattern: Unlabored O2 SAT 98 % Comments: Room air BP Systolic 158 mm[Hg] Comments: Patient Position: Sitting; Cuff Location: Left Arm; Cuff Size: Large BP Diastolic 80 mm[Hg] Comments: Patient Position: Sitting; Cuff Location: Left Arm; Cuff Size: Large Weight 190 lb Height 59 in BMI 38.37 kg/m2 BSA 1.8 m2 19-Apr-2015 13:24 Temperature 98.8 f Comments: Method: Tympanic Pulse 92 /min Comments: Pattern: Regular Respiration Rate 14 /min Comments: Pattern: Unlabored O2 SAT 94 % Comments: Room air BP Systolic 138 mm[Hg] Comments: Patient Position: Sitting; Cuff Location: Left Arm; Cuff Size: Standard BP Diastolic 60 mm[Hg] Comments: Patient Position: Sitting; Cuff Location: Left Arm; Cuff Size: Standard Weight 186 lb Height 59 in BMI 37.57 kg/m2 BSA 1.79 m2 11-Oct-2014 12:38 Temperature 97 f Comments: Method: Tympanic Pulse 90 /min Comments: Pattern: Regular Respiration Rate 16 /min Comments: Pattern: Unlabored O2 SAT 97 % Comments: Room air BP Systolic 140 mm[Hg] Comments: Patient Position: Sitting; Cuff Location: Left Arm; Cuff Size: Standard BP Diastolic 80 mm[Hg] Comments: Patient Position: Sitting; Cuff Location: Left Arm; Cuff Size: Standard Weight 189 lb Height 59 in BMI 38.17 kg/m2 BSA 1.8 m2 02-Aug-2014 11:34 Temperature 96.5 f Comments: Method: Tympanic Pulse 78 /min Comments: Pattern: Regular Respiration Rate 14 /min Comments: Pattern: Unlabored O2 SAT 97 % Comments: Room air BP Systolic 128 mm[Hg] Comments: Patient Position: Sitting; Cuff Location: Left Arm; Cuff Size: Standard BP Diastolic 70 mm[Hg] Comments: Patient Position: Sitting; Cuff Location: Left Arm; Cuff Size: Standard Weight 193 lb Height 59 in BMI 38.98 kg/m2 BSA 1.82 m2 04-May-2014 12:56 Temperature 97.8 f Comments: Method: Tympanic Pulse 68 /min Comments: Pattern: Regular Respiration Rate 18 /min Comments: Pattern: Unlabored O2 SAT 98 % Comments: Room air BP Systolic 118 mm[Hg] Comments: Patient Position: Sitting; Cuff Location: Left Arm; Cuff Size: Standard BP Diastolic 68 mm[Hg] Comments: Patient Position: Sitting; Cuff Location: Left Arm; Cuff Size: Standard Weight 194 lb Height 59 in BMI 39.18 kg/m2 BSA 1.82 m2 21-Mar-2014 10:14 Temperature 96.1 f Comments: Method: Tympanic Pulse 74 /min Comments: Pattern: Regular Respiration Rate 16 /min Comments: Pattern: Unlabored O2 SAT 97 % Comments: Room air BP Systolic 132 mm[Hg] Comments: Patient Position: Sitting; Cuff Location: Left Arm; Cuff Size: Large BP Diastolic 84 mm[Hg] Comments: Patient Position: Sitting; Cuff Location: Left Arm; Cuff Size: Large Weight 197 lb Height 59 in BMI 39.79 kg/m2 BSA 1.83 m2 21-Nov-2013 13:27 Comments: Exertional SaO2 -97% Temperature 98.2 f Comments: Method: Tympanic Pulse 82 /min Comments: Pattern: Regular Respiration Rate 18 /min Comments: Pattern: Unlabored O2 SAT 98 % Comments: Room air BP Systolic 102 mm[Hg] Comments: Patient Position: Sitting; Cuff Location: Left Arm; Cuff Size: Standard BP Diastolic 68 mm[Hg] Comments: Patient Position: Sitting; Cuff Location: Left Arm; Cuff Size: Standard Weight 195 lb Height 59 in BMI 39.38 kg/m2 BSA 1.82 m2 06-Jul-2013 14:59 Comments: exertional O2- 93% RA Temperature 96.2 f Comments: Method: Tympanic Pulse 62 /min Comments: Pattern: Regular Respiration Rate 18 /min Comments: Pattern: Unlabored O2 SAT 96 % Comments: Room air BP Systolic 122 mm[Hg] Comments: Patient Position: Sitting; Cuff Location: Left Arm; Cuff Size: Standard BP Diastolic 64 mm[Hg] Comments: Patient Position: Sitting; Cuff Location: Left Arm; Cuff Size: Standard Weight 192 lb Height 60 in BMI 37.5 kg/m2 BSA 1.83 m2 29-May-2013 11:00 Temperature 97.2 f Comments: Method: Tympanic Pulse 78 /min Comments: Pattern: Regular Respiration Rate 18 /min Comments: Pattern: Unlabored O2 SAT 98 % Comments: Room air BP Systolic 122 mm[Hg] Comments: Patient Position: Sitting; Cuff Location: Left Arm; Cuff Size: Standard BP Diastolic 68 mm[Hg] Comments: Patient Position: Sitting; Cuff Location: Left Arm; Cuff Size: Standard Weight 196 lb Height 59 in BMI 39.59 kg/m2 BSA 1.83 m2 12-May-2013 14:58 Temperature 97.7 f Comments: Method: Tympanic Pulse 74 /min Comments: Pattern: Regular Respiration Rate 16 /min Comments: Pattern: Unlabored BP Systolic 132 mm[Hg] Comments: Patient Position: Sitting; Cuff Location: Left Arm; Cuff Size: Large BP Diastolic 78 mm[Hg] Comments: Patient Position: Sitting; Cuff Location: Left Arm; Cuff Size: Large Weight 196 lb Height 59 in BMI 39.59 kg/m2 BSA 1.83 m2 21-Apr-2013 13:11 Temperature 96.9 f Comments: Method: Tympanic Pulse 92 /min Comments: Pattern: Regular Respiration Rate 20 /min Comments: Pattern: Unlabored O2 SAT 96 % Comments: Room air BP Systolic 118 mm[Hg] Comments: Patient Position: Sitting; Cuff Location: Left Arm; Cuff Size: Standard BP Diastolic 72 mm[Hg] Comments: Patient Position: Sitting; Cuff Location: Left Arm; Cuff Size: Standard Weight 192 lb Height 59 in BMI 38.78 kg/m2 BSA 1.81 m2 10-Apr-2013 10:04 Temperature 96.8 f Comments: Method: Tympanic Pulse 83 /min Comments: Pattern: Regular Respiration Rate 18 /min Comments: Pattern: Unlabored O2 SAT 95 % Comments: Room air BP Systolic 130 mm[Hg] Comments: Patient Position: Sitting; Cuff Location: Left Arm; Cuff Size: Standard BP Diastolic 62 mm[Hg] Comments: Patient Position: Sitting; Cuff Location: Left Arm; Cuff Size: Standard Weight 193 lb Height 59 in BMI 38.98 kg/m2 BSA 1.82 m2 02-Mar-2013 15:29 Comments: Exertional SaO2 -96% Temperature 98.7 f Comments: Method: Tympanic Pulse 96 /min Comments: Pattern: Regular Respiration Rate 22 /min Comments: Pattern: Unlabored O2 SAT 98 % Comments: Room air BP Systolic 136 mm[Hg] Comments: Patient Position: Sitting; Cuff Location: Left Arm; Cuff Size: Standard BP Diastolic 62 mm[Hg] Comments: Patient Position: Sitting; Cuff Location: Left Arm; Cuff Size: Standard Weight 197 lb Height 59 in BMI 39.79 kg/m2 BSA 1.83 m2 07-Oct-2012 12:22 Comments: Exertional SaO2 -97% Temperature 98.2 f Comments: Method: Tympanic Pulse 68 /min Comments: Pattern: Regular Respiration Rate 20 /min Comments: Pattern: Unlabored O2 SAT 98 % Comments: Room air BP Systolic 124 mm[Hg] Comments: Patient Position: Sitting; Cuff Location: Left Arm; Cuff Size: Standard BP Diastolic 70 mm[Hg] Comments: Patient Position: Sitting; Cuff Location: Left Arm; Cuff Size: Standard Weight 195 lb Height 59 in BMI 39.38 kg/m2 BSA 1.82 m2 08-Aug-2012 10:51 Comments: exertional O2- 96% RA Temperature 97.4 f Comments: Method: Tympanic Pulse 80 /min Comments: Pattern: Regular Respiration Rate 22 /min Comments: Pattern: Unlabored O2 SAT 98 % Comments: Room air BP Systolic 124 mm[Hg] Comments: Patient Position: Sitting; Cuff Location: Left Arm; Cuff Size: Standard BP Diastolic 70 mm[Hg] Comments: Patient Position: Sitting; Cuff Location: Left Arm; Cuff Size: Standard Weight 194 lb Height 59 in BMI 39.18 kg/m2 BSA 1.82 m2 04-Feb-2012 14:38 Comments: O2 R&E 98%/96% Temperature 97.9 f Comments: Method: Tympanic Pulse 75 /min Comments: Pattern: Regular Respiration Rate 16 /min Comments: Pattern: Unlabored O2 SAT 98 % Comments: Room air BP Systolic 140 mm[Hg] Comments: Patient Position: Sitting; Cuff Location: Left Arm; Cuff Size: Standard BP Diastolic 78 mm[Hg] Comments: Patient Position: Sitting; Cuff Location: Left Arm; Cuff Size: Standard Weight 202 lb Height 59 in BMI 40.8 kg/m2 BSA 1.85 m2 04-Aug-2011 12:26 Comments: Exertional SaO2 -95% Temperature 97.7 f Comments: Method: Tympanic Pulse 67 /min Comments: Pattern: Regular Respiration Rate 18 /min Comments: Pattern: Unlabored O2 SAT 97 % Comments: Room air BP Systolic 130 mm[Hg] Comments: Patient Position: Sitting; Cuff Location: Left Arm; Cuff Size: Standard BP Diastolic 64 mm[Hg] Comments: Patient Position: Sitting; Cuff Location: Left Arm; Cuff Size: Standard Weight 203 lb Height 59 in BMI 41 kg/m2 BSA 1.86 m2 01-May-2011 10:45 Temperature 97.8 f Comments: Method: Tympanic Pulse 78 /min Comments: Pattern: Regular Respiration Rate 20 /min Comments: Pattern: Unlabored O2 SAT 100 % Comments: Room air BP Systolic 104 mm[Hg] Comments: Patient Position: Sitting; Cuff Location: Left Arm; Cuff Size: Standard BP Diastolic 70 mm[Hg] Comments: Patient Position: Sitting; Cuff Location: Left Arm; Cuff Size: Standard Weight 202.375 lb Height 59 in BMI 40.87 kg/m2 BSA 1.85 m2 Advance Directives HIPAA - Effective on 11/17/2017. Expiration date unspecified. Effective: 2017 Scanned Document is available upon request. Encounters Historical Summary 05-Jun-2019 12:45 To 31-May-2019 8:49 [facility] Office Office Visit 05-Jun-2019 12:45 To 05-Jun-2019 12:42 Encounter Reason: ASTHMA, FOLLOW UP - The last clinic visit was 6 month(s) ago (And since that appointment the patient [facility] Office did have 3 courses of antibiotics in April (April 21, 2019 sputum culture did reveal staph aureus and pseudomonas aeruginosa) that included Augmentin, Cipro, and amoxicillin, and initially was also o n prednisone.). Management changes made at the last visit include none (Except to hold Spiriva and Dulera and try Trelegy daily. Also pay attention to fluid intake and use Mucinex as needed.). The patie nt's asthma causes daytime symptoms most days. The patient's asthma is not disturbing sleep. Symptoms include wheezing (at times), chest tightness (with activity), shortness of breath (worse since early 04/2019 that did get somewhat better with Abz/steroids and better with recent snow - still dyspneic with any activity), productive cough (brown colored secretions, no fever, good appetite, easy satiety , retains fluid, weight up 6#.) and non-productive cough. The patient describes the difficulty breathing as dyspnea on exertion. Onset of symptoms was gradual year(s) ago. The episodes occur daily. The patient describes this as severe (at times) and worsening (since 04/2019). Symptoms are exacerbated by cold temperature (and heat/humidity, URIs) and activity, while symptoms are not exacerbated by lyin g down. Symptoms are relieved by inhaler use (uses albuterol prn that is helpful), rest and oral steroids (hydrocortisone 20 mg AM and 10 mg HS for adrenal insufficiency. she holds this while on pre dnisone tapers for exacerbations that have been helpful). Associated symptoms include allergy symptoms (allergy shots q [address] Knight), while associated symptoms do not include fever. Current treatment includes inhaled albuterol (prn and has been using about 3x/day), inhaled long-acting beta-2 agonists, inhaled corticosteroids (dulera 200 mcg 2 puffs bid), oral corticosteroids (hydrocortiso ne daily), inhaled anticholinergics (spiriva respimat daily), leukotriene modifiers (Singulair daily) and immunotherapy (desensitization) (q 2 weeks). Bronchodilator use is becoming more frequent. By re port there is good compliance with treatment, good tolerance of treatment and poor symptom control. Pertinent medical history includes other pulmonary disease (sleep apnea, using cpap nightly. home care company is [employer]. no issues and no snoring with cpap on and feels more rested with use. 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 Tejeda) and allergic rhinitis, while pertinent medical history does not include gastroesophageal reflux (infrequent heartburn symptoms, will take tums). The patient has not been exposed to wood burning stove, mold/mildew in the home, tobacco smoke or animal dander. The patient is currently able to do activities of daily living with limitations and able to do housework with limitations. Encounter Diagnosis: ASTHMA (Renamed from AIRWAY HYPERREACTIVITY), OBSTRUCTIVE SLEEP APNEA, ABNORMAL FINDING ON LUNG IMAGING, ALLERGIC RHINITIS, OBESITY (Renamed from OBESE), GERD ( GASTROESOPHAGEAL REFLUX DISEASE), DYSPNEA, COUGH Historical Summary 05-Jun-2019 12:45 To 05-Jun-2019 12:01 Encounter Reason: ASTHMA, FOLLOW UP - The last clinic visit was 6 month(s) ago. Management changes made at the last [facility] Office it include none (Except to hold Spiriva and Dulera and try Trelegy daily. Also pay attention to fluid intake and use Mucinex as needed.). The patient's asthma causes daytime symptoms most days. The ashely ent's asthma is not disturbing sleep. Symptoms include wheezing (worse in last few days), chest tightness (with activity), shortness of breath (worse in last few days), productive cough (green to brown colored secretions) and non-productive cough. The patient describes the difficulty breathing as dyspnea on exertion. Onset of symptoms was gradual year( s) ago. The episodes occur daily (with recurrent U RI. has recently been on Abx 07/2018 and 08/2018 and October 2018 was on 7 days of prednisone.). The patient describes this as moderate in severity (to severe) and worsening (last few days). Symptoms are ex acerbated by cold temperature (and heat/humidity, URIs) and activity, while symptoms are not exacerbated by lying down. Symptoms are relieved by inhaler use (uses albuterol prn that is helpful), res t and oral steroids (hydrocortisone 20 mg AM and 10 mg HS for adrenal insufficiency. she holds this while on prednisone tapers for exacerbations). Associated symptoms include allergy symptoms (allergy s hots q [address] Knight), while associated symptoms do not include fever. Current treatment includes inhaled albuterol (prn), inhaled long-acting beta-2 agonists, inhaled corticosteroids (dulera 200 mcg 2 puffs bid), oral corticosteroids (hydrocortisone daily), inhaled anticholinergics (spiriva respimat 2.5 mcg daily), leukotriene modifiers ( Singulair daily) and immunotherapy (desensitization) (q 2 weeks). Bronchodilator use is becoming more frequent. By report there is good compliance with treatment, good tolerance of treatment and fair symptom control. Pertinent medical history includes ot her pulmonary disease (sleep apnea, using cpap nightly. home care company is [employer]. no issues and no snoring with cpap on and feels more rested with use. 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) and allergic rhinitis, while pertinent medical history does not include gastroesophageal reflux (infrequent heartburn symptoms, will take tums). The patient has not been exposed to wood burning sto ve, mold/mildew in the home, tobacco smoke or animal dander. The patient is currently able to do activities of daily living with limitations and able to do housework with limitations. Order Only 05-Jun-2019 12:45 To 05-Jun-2019 16:20 Encounter Diagnosis: ASTHMA (Renamed from AIRWAY HYPERREACTIVITY) [facility] Office Order Only 20-Apr-2019 10:46 To 20-Apr-2019 10:49 Encounter Diagnosis: ACUTE BRONCHITIS [facility] Historical Summary 17-Nov-2018 13:45 To 17-Nov-2018 13:45 [facility] Office Visit 17-Nov-2018 13:45 To 17-Nov-2018 14:10 Encounter Reason: ASTHMA, FOLLOW UP - The last clinic visit was 4 month(s) ago (And since that appointment the patient [facility] has seen infectious disease August 23, 2018 who noted that sputum is growing Pseudomonas, brahanmella, and Staph and wondered whether it was colonization versus culture needing antibiotic therapy. She has lost 6# since last visit and tells me to date IgG infusions are not covered by insurance.). Management changes made at the last visit include changing the dose of spiriva repimat, increased to 2.5mc g (recommended change to auto titrating cpap which was done and she does feel like she is sleeping longer and as a result feels more rested). The patient's asthma causes daytime symptoms most days. The patient's asthma is not disturbing sleep. Symptoms include wheezing (worse in last few days), chest tightness (with activity), shortness of breath (worse in last few days), productive cough (green to br own colored secretions) and non-productive cough. The patient describes the difficulty breathing as dyspnea on exertion. Onset of symptoms was gradual year( s) ago. The episodes occur daily (with recurre nt URI. has recently been on Abx 07/2018 and 08/2018 and October 2018 was on 7 days of prednisone.). The patient describes this as moderate in severity (to severe) and worsening (last few days). Symptoms ar e exacerbated by cold temperature (and heat/humidity, URIs) and activity, while symptoms are not exacerbated by lying down. Symptoms are relieved by inhaler use (uses albuterol prn that is helpful), rest and oral steroids (hydrocortisone 20 mg AM and 10 mg HS for adrenal insufficiency. she holds this while on prednisone tapers for exacerbations). Associated symptoms include allergy symptoms (aller gy shots q [address] Knight), while associated symptoms do not include fever. Current treatment includes inhaled albuterol (prn), inhaled long-acting beta-2 agonists, inhaled corticosteroids (du jacqueline 200 mcg 2 puffs bid), oral corticosteroids (hydrocortisone daily), inhaled anticholinergics (spiriva respimat 2.5 mcg daily), leukotriene modifiers (Singulair daily) and immunotherapy (desensitizat ion) (q 2 weeks). Bronchodilator use is becoming more frequent. By report there is good compliance with treatment, good tolerance of treatment and fair symptom control. Pertinent medical history include s other pulmonary disease (sleep apnea, using cpap nightly. home care company is [employer]. no issues and no snoring with cpap on and feels more rested with use. 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 Tejeda) and allergic rhinitis, while pertinent medical history does not include gastroesophageal reflux (infrequent heartburn symptoms, will take tums) . The patient has not been exposed to wood burning stove, mold/mildew in the home, tobacco smoke or animal dander. The patient is currently able to do activities of daily living with limitations and able to do housework with limitations. Encounter Diagnosis: CARCINOID TUMOR OF LUNG, BACTERIAL INFECTION DUE TO PSEUDOMONAS, ASTHMA (Renamed from AIRWAY HYPERREACTIVITY), GERD (GASTROESOPHAGEAL REFLUX DISEASE), ALLERGIC RHINITIS, OBESITY (Renamed from OBESE), OBSTRUCTIVE SLEEP APNEA, ABNORMAL FINDING ON LUNG IMAGING, IGG DEFICIENCY, DYSPNEA, WHEEZE Historical Summary 17-Nov-2018 13:45 To 11-Nov-2018 9:02 Encounter Reason: ASTHMA, FOLLOW UP - The last clinic visit was 4 month(s) ago (And since that appointment the patient [facility] has seen infectious disease August 23, 2018 who noted that sputum is growing Pseudomonas, brahanmella, and Staph and wondered whether it was colonization versus culture needing antibiotic therapy.). Uziel callaway changes made at the last visit include changing the dose of spiriva repimat, increased to 2.5mcg (recommended change to auto titrating cpap. that was done and she does feel like she is sleeping longer and as a result feels more rested). The patient's asthma causes daytime symptoms most days. The patient's asthma is not disturbing sleep. Symptoms include wheezing, chest tightness, shortness of breath, productive cough and non-productive cough. The patient describes the difficulty breathing as dyspnea on exertion. Onset of symptoms was gradual year( s) ago. The episodes occur daily (with recur rent URI. has recently been on cipro and augmentin. was also on abx in the fall ). The patient describes this as worsening (increased symptoms since fall 2017 URI). Symptoms are exacerbated by cold tempe rature (and heat/humidity, URIs) and activity, while symptoms are not exacerbated by lying down. Symptoms are relieved by inhaler use (rarely uses albuterol unless has URI), rest and oral steroids (hydr ocortisone 20 mg AM and 10 mg HS for adrenal insufficiency. she holds this while of prednisone tapers for exacerbations). Associated symptoms include allergy symptoms (allergy shots q [address] Paulette stearns), while associated symptoms do not include fever. Current treatment includes inhaled albuterol, inhaled long-acting beta-2 agonists, inhaled corticosteroids (dulera 200 mcg 2 puffs bid), oral cor ticosteroids (hydrocortisone daily), inhaled anticholinergics (spiriva respimat 2.5 mcg), leukotriene modifiers and immunotherapy (desensitization). Bronchodilator use is becoming more frequent. By repo rt there is good compliance with treatment, good tolerance of treatment and fair symptom control. Pertinent medical history includes other pulmonary disease (sleep apnea, using cpap nightly. home care alexandra magana is [employer]. no issues and no snoring with cpap on and feels more rested with use. 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 Tejeda) and allergic rhinitis, while pertinent medical history does no t include gastroesophageal reflux (infrequent heartburn symptoms, will take tums). The patient has not been exposed to wood burning stove, mold/mildew in the home, tobacco smoke or animal dander. Transition of Care 29-Aug-2018 7:49 To 29-Aug-2018 7:51 Encounter Diagnosis: IGG DEFICIENCY [facility] Order Only 16-Aug-2018 10:36 To 16-Aug-2018 10:40 Encounter Diagnosis: ACUTE BRONCHITIS [facility] Order Only 11-Aug-2018 11:01 To 11-Aug-2018 11:05 Encounter Diagnosis: ABNORMAL SPUTUM [facility] Office Visit 01-Aug-2018 9:30 To 02-Aug-2018 10:32 Encounter Reason: ASTHMA, FOLLOW UP - The last clinic visit was 2 month(s) ago. Management changes made at the last [facility] Office it include changing the dose of spiriva repimat, increased to 2.5mcg ( recommended change to auto titrating cpap. that was done and she does feel like she is sleeping longer and as a result feels more re sted). The patient's asthma causes daytime symptoms most days. The patient's asthma is not disturbing sleep. Symptoms include wheezing, chest tightness, shortness of breath, productive cough and non-pro ductive cough. The patient describes the difficulty breathing as dyspnea on exertion. Onset of symptoms was gradual year(s) ago. The episodes occur daily ( with recurrent URI. has recently been on cipro and augmentin. was also on abx in the fall). The patient describes this as worsening (increased symptoms since fall 2017 URI). Symptoms are exacerbated by cold temperature (and heat/humidity, URIs) and activity, while symptoms are not exacerbated by lying down. Symptoms are relieved by inhaler use (rarely uses albuterol unless has URI), rest and oral steroids (hydrocortisone 20 mg AM and 10 mg HS for adrenal insufficiency. she holds this while of prednisone tapers for exacerbations). Associated symptoms include allergy symptoms (allergy shots q [address] Knight), while associated symptoms do not include fever. Current treatment includes inhaled albuterol, inhaled long- acting beta-2 agonists, inhaled corticosteroids (dulera 200 mcg 2 puffs bid), oral corticosteroids (hydrocortisone daily), inhaled anticholinergics (spiriva respimat 2.5 mcg), leukotriene modifiers and immunotherapy (desensitization). Bronchodilator use is becoming more frequent. By report there is good compliance with patria tment, good tolerance of treatment and fair symptom control. Pertinent medical history includes other pulmonary disease (sleep apnea, using cpap nightly. home care company is [employer]. no issues and no s noring with cpap on and feels more rested with use. also hx pulmonary carcinoid -VATS with Dr. Tejeda) and allergic rhinitis, while pertinent medical history does not include gastroesophageal reflux (in frequent heartburn symptoms, will take tums). The patient has not been exposed to wood burning stove, mold/mildew in the home, tobacco smoke or animal dander. Encounter Diagnosis: ASTHMA (Renamed from AIRWAY HYPERREACTIVITY), ABNORMAL SPUTUM, OBSTRUCTIVE SLEEP APNEA, ABNORMAL FINDING ON LUNG IMAGING Order Only 29-Jul-2018 9:58 To 29-Jul-2018 10:03 Encounter Diagnosis: ACUTE BRONCHITIS [facility] Medication Order 05-Jul-2018 15:48 To 05-Jul-2018 15:50 Encounter Diagnosis: ASTHMA (Renamed from AIRWAY HYPERREACTIVITY) [facility] Office Visit 08-Jun-2018 10:21 To 08-Jun-2018 13:45 Encounter Reason: ASTHMA, FOLLOW UP - The last clinic visit was 3 month(s) ago. No changes in management were made at [facility] he last visit. The patient's asthma causes daytime symptoms most days. The patient's asthma is not disturbing sleep. Symptoms include wheezing (occ), chest tightness, shortness of breath, productive cou gh (infrequently rasing mucous) and non-productive cough (throat clearing). The patient describes the difficulty breathing as dyspnea on exertion. Onset of symptoms was gradual year(s) ago. The episodes occur daily. The patient describes this as worsening (more dyspnea since her last URI which was 05/24/18, overall improved but dyspnea isn't back to baseline) . Symptoms are exacerbated by cold temperatu re (and heat/humidity, URIs) and activity, while symptoms are not exacerbated by lying down. Symptoms are relieved by inhaler use (rarely uses albuterol unless has URI), rest and oral steroids (hydrocor tisone 20 mg AM and 10 mg HS for adrenal insufficiency). Associated symptoms include allergy symptoms (allergy shots q [address] Knight), while associated symptoms do not include fever or upper respiratory infection symptoms. Current treatment includes inhaled albuterol, inhaled long-acting beta-2 agonists, inhaled corticosteroids (dulera 200 mcg 2 puffs bid), oral corticosteroids (hydrocortis one daily), inhaled anticholinergics (spiriva respimat), leukotriene modifiers and immunotherapy (desensitization). Bronchodilator use is staying the same. By report there is good compliance with [facility] ent, good tolerance of treatment and fair symptom control. Pertinent medical history includes other pulmonary disease (sleep apnea, using cpap nightly (new machine 06/2017). no issues and no snoring wit h cpap on and feels more rested with use. 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 The patient has not been exposed to wood burning stove, mold/mildew in the home, tobacco smoke or animal dander. Encounter Diagnosis: ASTHMA (Renamed from AIRWAY HYPERREACTIVITY), OBSTRUCTIVE SLEEP APNEA, BACTERIAL INFECTION DUE TO PSEUDOMONAS, OBESITY (Renamed from OBESE) Order Only 16-Feb-2018 16:38 To 16-Feb-2018 16:39 Encounter Diagnosis: CARCINOID TUMOR OF LUNG [facility] Historical Summary 16-Feb-2018 11:38 To 16-Feb-2018 11:40 Encounter Reason: ASTHMA, FOLLOW UP - The last clinic visit was 3 month(s) ago. Management changes made at the last [facility] Office it include ordering tests. The patient's asthma causes daytime symptoms most days. The patient's asthma is not disturbing sleep. Symptoms include wheezing, shortness of breath (walking distances) and pr oductive cough (at times raises light yellowish- mott secretions), while symptoms do not include chest tightness. The patient describes the difficulty breathing as dyspnea on exertion. The episodes occur daily. The patient describes this as unchanged. Symptoms are exacerbated by cold temperature and activity, while symptoms are not exacerbated by lying down. Symptoms are relieved by inhaler use (rarely uses albuterol unless has URI), rest and oral steroids (hydrocortisone 20 mg AM and 10 mg HS for adrenal insufficiency). Associated symptoms include allergy symptoms ( allergy shots q 2 weeks with Arminda Knight), while associated symptoms do not include fever or upper respiratory infection symptoms. Current treatment includes inhaled albuterol ( prn and rarely uses), inhaled long-acting beta-2 agonis ts, inhaled corticosteroids (dulera 200 mcg 2 puffs bid.), oral corticosteroids , inhaled anticholinergics (spiriva respimat daily), leukotriene modifiers ( singulair daily) and immunotherapy (desensitiza tion). Bronchodilator use is becoming less frequent. By report there is good compliance with treatment, good tolerance of treatment and good symptom control. Pertinent medical history includes other pul monary disease (sleep apnea, using cpap nightly. no issues and no snoring with cpap on and feels more rested with use, has lost9#. 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 Tejeda) and gastroesophageal refl ux. The patient has been exposed to animal dander (dog), while the patient has not been exposed to wood burning stove, mold/mildew in the home or tobacco smoke. The patient is currently able to do activ ities of daily living with limitations and able to do housework with limitations. Historical Summary 16-Feb-2018 11:09 To 16-Feb-2018 11:09 [facility] Office Visit 16-Feb-2018 10:36 To 16-Feb-2018 12:04 Encounter Reason: ASTHMA, FOLLOW UP - The last clinic visit was 3 month(s) ago. Management changes made at the last vis [facility] it include ordering tests. The patient's asthma causes daytime symptoms most days. The patient's asthma is not disturbing sleep. Symptoms include wheezing ( sporadic), shortness of breath (better but wor se with heat/humidity lately) and productive cough (at times raises light yellowish- mott secretions), while symptoms do not include chest tightness. The patient describes the difficulty breathing as dys pnea on exertion. The episodes occur daily. The patient describes this as improving. Symptoms are exacerbated by cold temperature (and heat/humidity) and activity, while symptoms are not exacerbated by lying down. Symptoms are relieved by inhaler use (rarely uses albuterol unless has URI), rest and oral steroids (hydrocortisone 20 mg AM and 10 mg HS for adrenal insufficiency). Associated symptoms include allergy symptoms (allergy shots q [address] Knight), while associated symptoms do not include fever or upper respiratory infection symptoms. Current treatment includes inhaled albuterol (prn and rarely uses), inhaled long-acting beta-2 agonists, inhaled corticosteroids (dulera 200 mcg 2 puffs bid.), oral corticosteroids ( hydrocortisone daily with dose increased a few months ago), inhal ed anticholinergics (spiriva respimat daily), leukotriene modifiers (singulair daily) and immunotherapy (desensitization). Bronchodilator use is staying the same (rare use). By report there is good comp liance with treatment, good tolerance of treatment and good symptom control. Pertinent medical history includes other pulmonary disease (sleep apnea, using cpap nightly(new machine 06/2017). no issues a nd no snoring with cpap on and feels more rested with use, has gained 10#. 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 Tejeda), while pertinent medical history does not include gastroesophageal reflux (rare TUMS). The patient has been exposed to animal dander (dog), while the patient has not been exposed to wood burning stove, mold/mildew in the home or tobacco smoke. The patient is currently able to do ac tivities of daily living with limitations and able to do housework with limitations. Encounter Diagnosis: ABNORMAL FINDING ON LUNG IMAGING, ASTHMA (Renamed from AIRWAY HYPERREACTIVITY), ALLERGIC RHINITIS, GERD ( GASTROESOPHAGEAL REFLUX DISEASE), OBESITY (Renamed from OBESE), OBSTRUCTIVE SLEEP APNEA, CARCINOID TUMOR OF LUNG, PULMONARY HYPERTENSION (Renamed from HYPERTENSIVE PULMONARY VASCULAR DISEASE), DYSPNEA Historical Summary 04-Feb-2018 14:15 To 04-Feb-2018 14:21 [facility] Office Order Only 17-Nov-2017 15:48 To 17-Nov-2017 15:51 Encounter Diagnosis: ABNORMAL FINDING ON LUNG IMAGING [facility] Office Visit 2-May-2018 13:49 To 17-Nov-2017 14:24 Encounter Reason: ASTHMA, FOLLOW UP - The last clinic visit was 9 month(s) ago (and has lost 9# since last seen, had ri [facility] ght knee surgery 2 weeks ago and since seen has had numerous bronchopulmonary infections rx with Abx/steroids, the latest 2 weeks ago with CXR revealing pneumonia. Has had contact with ill people, has h ad vaccinations, no aspiration s/s.). Management changes made at the last visit include none (except to use flutter valve regularly). The patient's asthma causes daytime symptoms most days. The patient' s asthma is not disturbing sleep. Symptoms include wheezing, shortness of breath (walking distances) and productive cough (at times raises light yellowish - mott secretions), while symptoms do not include chest tightness. The patient describes the difficulty breathing as dyspnea on exertion. The episodes occur daily. The patient describes this as unchanged. Symptoms are exacerbated by cold temperature a nd activity, while symptoms are not exacerbated by lying down. Symptoms are relieved by inhaler use (rarely uses albuterol unless has URI), rest and oral steroids (hydrocortisone 20 mg AM and 10 mg HS for adrenal insufficiency). Associated symptoms include allergy symptoms ( allergy shots q [address] Knight), while associated symptoms do not include fever or upper respiratory infection symp toms. Current treatment includes inhaled albuterol (prn and rarely uses), inhaled long-acting beta-2 agonists, inhaled corticosteroids (dulera 200 mcg 2 puffs bid.), oral corticosteroids, inhaled antich olinergics (spiriva respimat daily), leukotriene modifiers (singulair daily) and immunotherapy (desensitization). Bronchodilator use is becoming less frequent. By report there is good compliance with tr eatment, good tolerance of treatment and good symptom control. Pertinent medical history includes other pulmonary disease (sleep apnea, using cpap nightly. no issues and no snoring with cpap on and feel s more rested with use, has lost9#. 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 Tejeda) and gastroesophageal reflux. The patient has been exposed to animal dander (dog), while the patient has not been exposed to wood burning stove, mold/mildew in the home or tobacco smoke. The patient is currently able to do activities of daily living with limitations and able to do housework with limitations. Encounter Diagnosis: ASTHMA (Renamed from AIRWAY HYPERREACTIVITY), OBSTRUCTIVE SLEEP APNEA, OBESITY (Renamed from OBESE), GERD (GASTROESOPHAGEAL REFLUX DISEASE), ALLERGIC RHINITIS Historical Summary 17-Nov-2017 13:30 To 17-Nov-2017 13:31 Encounter Reason: ASTHMA, FOLLOW UP - The last clinic visit was 9 month(s) ago. Management changes made at the last [facility] Office it include none (except to use flutter valve regularly). The patient's asthma causes daytime symptoms most days. The patient's asthma is not disturbing sleep. Symptoms include wheezing, shortness of moriah ath (walking distances) and productive cough (thick mucous, yellowish-brown), while symptoms do not include chest tightness. The patient describes the difficulty breathing as dyspnea on exertion. The ep isodes occur daily. The patient describes this as improving (has been on abx x2 since last visit. no acute symptoms currently. sputum grew MRSA and in the past has grown pseudomonas). Symptoms are exace rbated by cold temperature and activity, while symptoms are not exacerbated by lying down. Symptoms are relieved by inhaler use (rarely uses albuterol unless has URI), rest and oral steroids (hydrocotis one 20 mg AM and 10 mg HS for adrenal insufficiency). Associated symptoms include allergy symptoms ( allergy shots q [address] Knight), while associated symptoms do not include fever or upper respiratory infection symptoms. Current treatment includes inhaled albuterol ( prn), inhaled long-acting beta-2 agonists, inhaled corticosteroids (dulera 200 mcg 2 puffs bid. has only been on qvar 2 puf fs bid short term- to stop when current supply is finished), inhaled anticholinergics (spiriva respimat), leukotriene modifiers (singulair daily) and immunotherapy (desensitization). Bronchodilator use is becoming less frequent. By report there is good compliance with treatment, good tolerance of treatment and fair symptom control. Pertinent medical history includes other pulmonary disease (sleep apne a, using cpap nightly. no issues and no snoring with cpap on and feels more rested with use. 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 Tejeda) and gastroesophageal reflux. The patient has been exposed to an imal dander (dog), while the patient has not been exposed to wood burning stove , mold/mildew in the home or tobacco smoke. Historical Summary 13-Nov-2017 10:06 To 13-Nov-2017 10:09 [facility] Order Only 03-May-2017 14:33 To 03-May-2017 14:35 Encounter Diagnosis: ASTHMA (Renamed from AIRWAY HYPERREACTIVITY) [facility] Historical Summary 05-Apr-2017 16:16 To 05-Apr-2017 16:23 Encounter Diagnosis: ASTHMA (Renamed from AIRWAY HYPERREACTIVITY) [facility] Office Medication Order 02-Apr-2017 11:02 To 02-Apr-2017 11:54 Encounter Diagnosis: ACUTE BRONCHITIS [facility] Office Visit 26-Feb-2017 8:56 To 26-Feb-2017 11:06 Encounter Reason: ASTHMA, FOLLOW UP - The last clinic visit was 3 month(s) ago (primary is Dr. Donte Mckinney). No changes [facility] [place] management were made at the last visit. The patient's asthma causes daytime symptoms most days. The patient's asthma is not disturbing sleep. Symptoms include wheezing, shortness of breath (walking d istances) and productive cough (thick mucous, yellowish-brown), while symptoms do not include chest tightness. The patient describes the difficulty breathing as dyspnea on exertion. The episodes occur d aily. The patient describes this as improving (has been on abx x2 since last visit. no acute symptoms currently. sputum grew MRSA and in the past has grown pseudomonas). Symptoms are exacerbated by cold temperature and activity, while symptoms are not exacerbated by lying down. Symptoms are relieved by inhaler use (rarely uses albuterol unless has URI), rest and oral steroids (hydrocotisone 20 mg AM a nd 10 mg HS for adrenal insufficiency). Associated symptoms include allergy symptoms ( allergy shots q [address] Knight), while associated symptoms do not include fever or upper respiratory i nfection symptoms. Current treatment includes inhaled albuterol (prn), inhaled long-acting beta-2 agonists, inhaled corticosteroids (dulera 200 mcg 2 puffs bid. has only been on qvar 2 puffs bid short t erm- to stop when current supply is finished), inhaled anticholinergics ( spiriva respimat), leukotriene modifiers (singulair daily) and immunotherapy ( desensitization). Bronchodilator use is becoming le ss frequent. By report there is good compliance with treatment, good tolerance of treatment and fair symptom control. Pertinent medical history includes other pulmonary disease (sleep apnea, using cpap nightly. no issues and no snoring with cpap on and feels more rested with use. 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 Tejeda) and gastroesophageal reflux. The patient has been exposed to animal dander (d og), while the patient has not been exposed to wood burning stove, mold/mildew in the home or tobacco smoke. Encounter Diagnosis: ASTHMA (Renamed from AIRWAY HYPERREACTIVITY), ABNORMAL SPUTUM, BACTERIAL INFECTION DUE TO PSEUDOMONAS , OBSTRUCTIVE SLEEP APNEA, OBESITY (Renamed from OBESE), GERD (GASTROESOPHAGEAL REFLUX DISEASE) Transition of Care 08-Feb-2017 11:23 To 08-Feb-2017 11:56 Encounter Diagnosis: ABNORMAL SPUTUM [facility] [place] 04-Feb-2017 14:17 To 04-Feb-2017 14:21 Encounter Diagnosis: ASTHMA (Renamed from AIRWAY HYPERREACTIVITY) [facility] Office Order Only 30-Nov-2016 15:44 To 30-Nov-2016 15:45 Encounter Diagnosis: ASTHMA (Renamed from AIRWAY HYPERREACTIVITY) [facility] Office Visit 30-Nov-2016 15:01 To 30-Nov-2016 15:48 Encounter Reason: ASTHMA, FOLLOW UP - The last clinic visit was 3 month(s) ago (primary is Dr. Donte Mckinney). No changes [facility] in management were made at the last visit. The patient's asthma causes daytime symptoms most days. The patient's asthma is not disturbing sleep. Symptoms include wheezing (increased), chest tightness (w hen she walks), shortness of breath (worsening again. never improved to baseline after pneumonia aug 2016 and in recent weeks feels she is worsening with dyspnea upon any exertion) and non-productive co ugh, while symptoms do not include productive cough. The patient describes the difficulty breathing as chest tightness and dyspnea on exertion. The episodes occur daily. The patient describes this as wo rsening (since pneumonia and prior was doing well). Symptoms are exacerbated by cold temperature and activity, while symptoms are not exacerbated by lying down. Symptoms are relieved by inhaler use (usi ng albuterol up to 4 times/day with some benefit. has days when she doesn't need it quite that much), rest and oral steroids (hydrocotisone 20 mg AM and 10 mg HS for adrenal insufficiency). Associat ed symptoms include allergy symptoms (allergy shots q [address] Knight) , while associated symptoms do not include fever or upper respiratory infection symptoms. Current treatment includes inhale d albuterol (prn), inhaled long-acting beta-2 agonists, inhaled corticosteroids (dulera 200 mcg 2 puffs bid), inhaled anticholinergics (spiriva handihaler), leukotriene modifiers (singulair daily) and i mmunotherapy (desensitization). Bronchodilator use is becoming more frequent. By report there is good compliance with treatment, good tolerance of treatment and fair symptom control. Pertinent medical h istory includes other pulmonary disease (sleep apnea, using cpap nightly. no issues and no snoring with cpap on and feels more rested with use) and gastroesophageal reflux. The patient has been exposed to animal dander (dog), while the patient has not been exposed to wood burning stove, mold/mildew in the home or tobacco smoke. Encounter Diagnosis: ASTHMA (Renamed from AIRWAY HYPERREACTIVITY), OBESITY (Renamed from OBESE), GERD (GASTROESOPHAGEAL REFLUX DISEASE), OBSTRUCTIVE SLEEP APNEA, ALLERGIC RHINITIS Office Visit 09-Sep-2016 13:35 To 09-Sep-2016 14:14 Encounter Reason: ASTHMA, FOLLOW UP - The last clinic visit was 5 month(s) ago (and hospitalized in [place] 08/23-08/27/19 [facility] 17 with pneumonia and still not back to baseline - completed Abx, primary is Dr. Donte Mckinney). Management changes made at the last visit include none (except to temporarily increase Dulera to 200 and the n back to usual dose and consider Zantac for her GERD.). The patient's asthma causes daytime symptoms most days. The patient's asthma is not disturbing sleep. Symptoms include chest tightness (when she walks), shortness of breath (increased compared to last visit since pneumonia, remains weak and tired) and productive cough (scant pale green sputum, no fever) , while symptoms do not include wheezing (s poradic afternoons and night). The patient describes the difficulty breathing as dyspnea on exertion. The episodes occur daily. The patient describes this as mild (to moderate) and worsening (since nazario aj and prior was doing well - had foot surgery 2 days prior to pneumonia done under conscious sedation). Symptoms are exacerbated by cold temperature and activity, while symptoms are not exacerbated by lying down. Symptoms are relieved by inhaler use (no use recently), rest and oral steroids (hydrocotisone 20 mg AM and 10 mg HS for adrenal insufficiency). Associated symptoms include allergy sympto ms (allergy shots q [address] Knight), while associated symptoms do not include fever or upper respiratory infection symptoms (recent infection rx with Abx). Current treatment includes inhaled a lbuterol (prn), inhaled long-acting beta-2 agonists, inhaled corticosteroids ( dulera 200 mcg 2 puffs bid), inhaled anticholinergics (spiriva handihaler), leukotriene modifiers (singulair daily) and immu notherapy (desensitization). Bronchodilator use is becoming less frequent. By report there is good compliance with treatment, good tolerance of treatment and fair symptom control. Pertinent medical hist ory includes other pulmonary disease (sleep apnea, using cpap nightly. no issues and no snoring with cpap on and feels more rested with use) and gastroesophageal reflux. The patient has been exposed to animal dander (dog), while the patient has not been exposed to wood burning stove, mold/mildew in the home or tobacco smoke. Past evaluation has included chest CT (had URI symptoms in february [address] chest with primary. CT chest 02/28/13 with PARADISE 4.1 cm mass with cavitation. sputum analysis revealed pseudomonas with negative cytology and negative afb studies. she underwent bronchoscopy when there was no improvement in CT findings after abx and bronch was unremarkable except for pseudomonas growth. she has been on cipro 02/2013, 2012, 06/2013, and 10/2013-this time with oral mckenzie roids and has noted improvement in URI symptoms and CT chest has improved. etiology is still unclear but does appear to be an infectious/inflammatory process and could be cryptogenic organizing pneumoni tis. repeat CT chest 03/21/14 with stable size, less cavitation. did have ID consult with recommendation to consider inhaled VJ. she tolerated this for two full courses and part of a third but then she noticed more coughing/wheezing and stopped. most recent ct chest 04/19/15 with near resolution of left cavitary change but new patchy opacities. now s/p VATS with Dr. Tejeda with RUL, RML, and RLL wedge biopsies and was noted to have mild emphysema, bronchiolitis and non specific necrotizing granuloma. 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 last ct chest november 2015 with new infiltrate- now s/p abx therapy. repeat scan december 2015 with improvement). Encounter Diagnosis: ASTHMA (Renamed from AIRWAY HYPERREACTIVITY), OBESITY (Renamed from OBESE), GERD (GASTROESOPHAGEAL REFLUX DISEASE), OBSTRUCTIVE SLEEP APNEA, ALLERGIC RHINITIS, PNEUMONIA Office Visit 17-Apr-2016 13:58 To 17-Apr-2016 14:59 Encounter Reason: ASTHMA, FOLLOW UP - The last clinic visit was 3 month(s) ago (primary is Dr. Donte Mckinney). No changes [facility] in management were made at the last visit. The patient's asthma causes daytime symptoms most days. The patient's asthma is not disturbing sleep. Symptoms include wheezing, chest tightness, shortness of breath (increased compared to last visit) and non-productive cough. The patient describes the difficulty breathing as dyspnea on exertion. The patient describes this as worsening. Symptoms are exacerbat ed by cold temperature and activity, while symptoms are not exacerbated by lying down. Symptoms are relieved by inhaler use (a couple times in mar has needed rescue), rest and oral steroids (currently on for adrenal insufficiency). Associated symptoms include allergy symptoms ( allergy shots q [address] Knight), while associated symptoms do not include fever or upper respiratory infection symp toms. Current treatment includes inhaled albuterol, inhaled long-acting beta-2 agonists, inhaled corticosteroids (dulera 100 mcg 2 puffs bid), inhaled anticholinergics (spiriva handihaler), leukotriene modifiers (singulair) and immunotherapy (desensitization). Bronchodilator use is becoming more frequent (couple times in mar 2016). By report there is good compliance with treatment, good tolerance of treatment and fair symptom control. Pertinent medical history includes other pulmonary disease (sleep apnea, using cpap nightly. no issues and no snoring with cpap on and feels more rested with use) and gastroesophageal reflux. The patient has been exposed to animal dander (dog ), while the patient has not been exposed to wood burning stove, mold/mildew in the home or tobacco smoke. Past evaluation has included chest CT (had URI symptoms in february [address] chest with primary. CT chest 02/28/13 with PARADISE 4.1 cm mass with cavitation. sputum analysis revealed pseudomonas with negative cyto logy and negative afb studies. she underwent bronchoscopy 05/17/13 when there was no improvement in CT findings after abx and bronch was unremarkable except for pseudomonas growth. she has been on cipro 02/2013, 05/2013, 06/2013, and 10/2013-this time with oral steroids and has noted improvement in URI symptoms and CT chest has improved. etiology is still unclear but does appear to be an infectious/infl ammatory process and could be cryptogenic organizing pneumonitis. repeat CT chest 03/21/14 with stable size, less cavitation. did have ID consult with recommendation to consider inhaled VJ. she tolerate d this for two full courses and part of a third but then she noticed more coughing/wheezing and stopped. most recent ct chest 04/19/15 with near resolution of left cavitary change but new patchy opacitie s. now s/p 07/05/[address] Tejeda with RUL, RML, and RLL wedge biopsies and was noted to have mild emphysema, bronchiolitis and non specific necrotizing granuloma. also a well differentiated car cinoid within pleural scar in RML and has seen oncology who doesn't feel any further workup is needed. last ct chest november 2015 with new infiltrate- now s/p abx therapy. repeat scan december 2015 with improvement). Encounter Diagnosis: ASTHMA (Renamed from AIRWAY HYPERREACTIVITY), OBSTRUCTIVE SLEEP APNEA, GERD (GASTROESOPHAGEAL REFLUX DISEASE), OBESITY (Renamed from OBESE) Radiology 08-Jan-2016 10:38 To 08-Jan-2016 10:43 Encounter Diagnosis: ABNORMAL FINDING ON LUNG IMAGING [facility] Order Only 03-Jan-2016 8:56 To 03-Jan-2016 10:08 Encounter Diagnosis: ABNORMAL FINDING ON LUNG IMAGING [facility] Office Visit 03-Jan-2016 8:04 To 03-Jan-2016 8:48 Encounter Reason: ASTHMA, FOLLOW UP - The last clinic visit was 1 month(s) ago (primary is Dr. Donte Mckinney). Management [facility] changes made at the last visit include adding zithromax, then cipro due to persistent symptoms. The patient's asthma causes daytime symptoms 1 to 2 times per week. The patient's asthma is not disturbing sleep. Symptoms include wheezing, chest tightness, shortness of breath (with exertion, sometimes) and productive cough (still bringing up a little mucous 1- 2x/day, light green). The patient describes t he difficulty breathing as dyspnea on exertion. The patient describes this as improving. Symptoms are exacerbated by activity. Symptoms are relieved by inhaler use (hasn't used rescue lately), rest and oral steroids (currently on for adrenal insufficiency). Associated symptoms include allergy symptoms (allergy shots q [address] Knight), while associated symptoms do not include fever or upper r espiratory infection symptoms. Current treatment includes inhaled albuterol, inhaled long-acting beta-2 agonists, inhaled corticosteroids (dulera 100 mcg 2 puffs bid), inhaled anticholinergics (spiriva handihaler), leukotriene modifiers (singulair) and immunotherapy ( desensitization). Bronchodilator use is staying the same. By report there is good compliance with treatment, good tolerance of treatment and fair symptom control. Pertinent medical history includes other pulmonary disease (sleep apnea, using cpap nightly. no issues and no snoring with cpap on. more rested with use, and has new diagn osis of carcinoid, has seen oncology who does not feel rx needed and will f/u in a few weeks) and gastroesophageal reflux. The patient has been exposed to animal dander (dog), while the patient has not been exposed to wood burning stove, mold/mildew in the home or tobacco smoke. Past evaluation has included chest CT (had URI symptoms in february [address] chest with primary. CT chest 02/28/13 with PARADISE 4.1 cm mass with cavitation. sputum analysis revealed pseudomonas with negative cytology and negative afb studies. she underwent bronchoscopy when there was no improvement in CT findi ngs after abx and bronch was unremarkable except for pseudomonas growth. she has been on cipro 02/2013, 05/2013, 06/2013, and 10/2013-this time with oral steroids and has noted improvement in URI symptoms and CT chest has improved. etiology is still unclear but does appear to be an infectious/inflammatory process and could be cryptogenic organizing pneumonitis. repeat CT chest 03/21/14 with stable size, l ess cavitation. did have ID consult with recommendation to consider inhaled VJ. she tolerated this for two full courses and part of a third but then she noticed more coughing/wheezing and stopped. mos t recent ct chest 04/19/15 with near resolution of left cavitary change but new patchy opacities. now s/p 07/05/[address] Tejeda with RUL, RML, and RLL wedge biopsies and was noted to have mild e mphysema, bronchiolitis and non specific necrotizing granuloma. 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 last ct chest november 2015 with new infiltrate- now s/p abx therapy). Encounter Diagnosis: ABNORMAL FINDING ON LUNG IMAGING, ASTHMA (Renamed from AIRWAY HYPERREACTIVITY), GERD (GASTROESOPHAGEAL REFLUX DISEASE) Order Only 27-Nov-2015 8:59 To 27-Nov-2015 10:59 Encounter Diagnosis: ABNORMAL FINDING ON LUNG IMAGING [facility] Historical Summary 26-Nov-2015 14:51 To 26-Nov-2015 14:52 Encounter Reason: ASTHMA, FOLLOW UP - The last clinic visit was 3 month(s) ago (primary is Dr. Donte Mckinney). Management [facility] changes made at the last visit include none (oncology f/u for carcinoid). The patient's asthma never causes daytime symptoms. The patient's asthma is not disturbing sleep. Symptoms include non-productiv e cough (clearing throat, post nasal drip, worse in the morning), while symptoms do not include wheezing, chest tightness, shortness of breath or productive cough. The patient describes the difficulty b reathing as dyspnea on exertion (not lately). The patient describes this as improving. Symptoms are not exacerbated by activity. Symptoms are relieved by inhaler use (hasn't needed rescue lately), rest and oral steroids (currently on for adrenal insufficiency). Associated symptoms include allergy symptoms (stable, allergy shots q [address] Knight), while associated symptoms do not include feve r or upper respiratory infection symptoms. Current treatment includes inhaled albuterol, inhaled long-acting beta-2 agonists, inhaled corticosteroids (dulera 200 mcg 2 puffs bid), inhaled anticholinergi cs (spiriva), leukotriene modifiers and immunotherapy (desensitization). Bronchodilator use is becoming more frequent. By report there is good compliance with treatment, good tolerance of treatment and good symptom control. Pertinent medical history includes other pulmonary disease (sleep apnea, using cpap nightly. no issues and no snoring with cpap on. more rested with use) and gastroesophageal r eflux. The patient has been exposed to animal dander (dog), while the patient has not been exposed to wood burning stove, mold/mildew in the home or tobacco smoke. Past evaluation has included chest CT (had URI symptoms in february [address] chest with primary. CT chest 02/28/13 with PARADISE 4.1 cm mass with cavitation. sputum analysis revealed pseudomonas with negative cytology and negative afb studies. she underwent bronchoscopy 05/17/13 when there was no improvement in CT findings after abx and bronch was unremarkable except for pseudomonas growth. she has been on cipro 02/2013, 05/2013, 06/19 013, and 10/2013-this time with oral steroids and has noted improvement in URI symptoms and CT chest has improved. etiology is still unclear but does appear to be an infectious/inflammatory process and c ould be cryptogenic organizing pneumonitis. repeat CT chest 03/21/14 with stable size, less cavitation. did have ID consult with recommendation to consider inhaled VJ. she tolerated this for two full co urses and part of a third but then she noticed more coughing/wheezing and stopped. most recent ct chest 04/19/15 with near resolution of left cavitary change but new patchy opacities. now s/p 07/05/[address] Tejeda with RUL, RML, and RLL wedge biopsies and was noted to have mild emphysema, bronchiolitis and non specific necrotizing granuloma. 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 Office Visit 26-Nov-2015 14:36 To 26-Nov-2015 15:14 Encounter Reason: ASTHMA, FOLLOW UP - The last clinic visit was 3 month(s) ago (primary is Dr. Donte Mckinney). Management [facility] Office changes made at the last visit include none (oncology f/u for carcinoid). The patient's asthma never causes daytime symptoms. The patient's asthma is not disturbing sleep. Symptoms include productive co ugh (and x 24 hours raising dark sputum, some increase in dyspnea and wheeze, no fever.) and non-productive cough (clearing throat, post nasal drip, worse in the morning), while symptoms do not include wheezing, chest tightness or shortness of breath. The patient describes the difficulty breathing as dyspnea on exertion (not lately). The episodes occur daily. The patient describes this as worsening (r ecently). Symptoms are not exacerbated by activity. Symptoms are relieved by inhaler use (hasn't needed rescue lately), rest and oral steroids (currently on for adrenal insufficiency). Associated sympto ms include allergy symptoms (some upper s/s, allergy shots q [address] Knight), while associated symptoms do not include fever or upper respiratory infection symptoms. Current treatment includes inhaled albuterol, inhaled long-acting beta-2 agonists, inhaled corticosteroids (dulera 200 mcg 2 puffs bid), inhaled anticholinergics (spiriva daily), leukotriene modifiers (singulair daily) and immun otherapy (desensitization). Bronchodilator use is becoming more frequent. By report there is good compliance with treatment, good tolerance of treatment, good symptom control and fair symptom control. P ertinent medical history includes other pulmonary disease (sleep apnea, using cpap nightly. no issues and no snoring with cpap on. more rested with use, and has new diagnosis of carcinoid, has seen oncology who does not feel rx needed and will f/u with ct chest in a few weeks ) and gastroesophageal reflux. The patient has been exposed to animal dander ( dog), while the patient has not been exposed t o wood burning stove, mold/mildew in the home or tobacco smoke. Past evaluation has included chest CT (had URI symptoms in february [address] chest with primary. CT chest 02/28/13 with PARADISE 4.1 cm mass with cavitation. sputum analysis revealed pseudomonas with negative cytology and negative afb studies. she underwent bronchoscopy 05/17/13 when there was no improvement in CT findings after abx and bronch was unremarkable except for pseudomonas growth. she has been on cipro 02/2013, 05/2013, 06/2013, and 10/2013-this time with oral steroids and has noted improvement in URI symptoms and CT chest has improved. etiology is still unclear but does appear to be an infectious/ inflammatory process and could be cryptogenic organizing pneumonitis. repeat CT chest 03/21/14 with stable size, less cavitation . did have ID consult with recommendation to consider inhaled VJ. she tolerated this for two full courses and part of a third but then she noticed more coughing/wheezing and stopped. most recent ct ch est 04/19/15 with near resolution of left cavitary change but new patchy opacities. now s/p 07/05/[address] Tejeda with RUL, RML, and RLL wedge biopsies and was noted to have mild emphysema, bron chiolitis and non specific necrotizing granuloma. 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 Encounter Diagnosis: ASTHMA (Renamed from AIRWAY HYPERREACTIVITY), ACUTE BRONCHITIS, CARCINOID TUMOR OF LUNG, OBSTRUCTIVE SLEEP APNEA, GERD (GASTROESOPHAGEAL REFLUX DISEASE), OBESITY (Renamed from OBESE ) Transition of Care 29-Aug-2015 11:00 To 29-Aug-2015 11:02 Encounter Diagnosis: CARCINOID TUMOR OF LUNG [facility] Office Office Visit 26-Aug-2015 10:19 To 26-Aug-2015 14:58 Encounter Reason: ASTHMA, FOLLOW UP - The last clinic visit was 3 month(s) ago (primary is Dr. Donte Mckinney). Management [facility] Office changes made at the last visit include none (she had thoracic surgery eval with Dr. Tejeda and had VATS procedure without complication). The patient's asthma never causes daytime symptoms. The patient' s asthma is not disturbing sleep. Symptoms include non-productive cough ( clearing throat, post nasal drip, worse in the morning), while symptoms do not include wheezing, chest tightness, shortness of br eath or productive cough. The patient describes the difficulty breathing as dyspnea on exertion (not lately). The patient describes this as improving. Symptoms are not exacerbated by activity. Symptoms are relieved by inhaler use (hasn't needed rescue lately), rest and oral steroids (currently on for adrenal insufficiency). Associated symptoms include allergy symptoms (stable, allergy shots q [address] Knight), while associated symptoms do not include fever or upper respiratory infection symptoms. Current treatment includes inhaled albuterol, inhaled long-acting beta-2 agonists, inhaled gordo icosteroids (dulera 200 mcg 2 puffs bid), inhaled anticholinergics (spiriva), leukotriene modifiers and immunotherapy (desensitization). Bronchodilator use is becoming more frequent. By report there is good compliance with treatment, good tolerance of treatment and good symptom control. Pertinent medical history includes other pulmonary disease (sleep apnea , using cpap nightly. no issues and no snorin g with cpap on. more rested with use) and gastroesophageal reflux. The patient has been exposed to animal dander (dog), while the patient has not been exposed to wood burning stove, mold/mildew in t he home or tobacco smoke. Past evaluation has included chest CT (had URI symptoms in february [address] chest with primary. CT chest 02/28/13 with PARADISE 4.1 cm mass with cavitation. sputum analys is revealed pseudomonas with negative cytology and negative afb studies. she underwent bronchoscopy 05/17/13 when there was no improvement in CT findings after abx and bronch was unremarkable except for pseudomonas growth. she has been on cipro 02/2013, 05/2013, 06/2013, and 10/2013 -this time with oral steroids and has noted improvement in URI symptoms and CT chest has improved. etiology is still unclea r but does appear to be an infectious/inflammatory process and could be cryptogenic organizing pneumonitis. repeat CT chest 03/21/14 with stable size, less cavitation. did have ID consult with jennifer davila to consider inhaled VJ. she tolerated this for two full courses and part of a third but then she noticed more coughing/wheezing and stopped. most recent ct chest 04/19/15 with near resolution of le ft cavitary change but new patchy opacities. now s/p 07/05/[address] Tejeda with RUL, RML, and RLL wedge biopsies and was noted to have mild emphysema, bronchiolitis and non specific necrotizing granuloma. 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 Encounter Diagnosis: ASTHMA (Renamed from AIRWAY HYPERREACTIVITY), ABNORMAL FINDING ON LUNG IMAGING, CARCINOID TUMOR OF LUNG, OBSTRUCTIVE SLEEP APNEA Office Visit 30-May-2015 12:05 To 30-May-2015 13:07 Encounter Reason: ASTHMA, FOLLOW UP - The last clinic visit was 24 day(s) ago. Management changes made at the last [facility] Office t include none (and is to have thoracic surgery biopsy 06/[address] Tejeda). The patient's asthma never causes daytime symptoms. The patient's asthma is not disturbing sleep. Symptoms include wheezing , chest tightness, shortness of breath and non-productive cough (daily), while symptoms do not include productive cough. The patient describes the difficulty breathing as chest tightness and dyspnea on exertion. The patient describes this as improving (is s/p medrol dosepak per endocrinology 04/2015 with improvement). Symptoms are exacerbated by activity. Symptoms are relieved by inhaler use (using al buterol 2-3x/day), rest and oral steroids (currently on medrol). Associated symptoms include allergy symptoms (stable, allergy shots q [address] Knight), while associated symptoms do not include fever. Current treatment includes inhaled albuterol, inhaled long-acting beta- 2 agonists, inhaled corticosteroids (dulera 200 mcg 2 puffs bid), inhaled anticholinergics (spiriva), leukotriene modifiers and immunotherapy (desensitization). Bronchodilator use is becoming more frequent. By report there is good compliance with treatment, good tolerance of treatment, good symptom control and poor symptom control. Pertinent medical history includes other pulmonary disease (sleep apnea, using cpap nightly. no issues and no snoring with cpap on, and new diagnosis DM and on rx since end of 04/2015 after rx with medrol(hospitalized for a few days)) and gastroesophageal reflux. The patient has been exposed to animal dander (dog), while the patient has not been exposed to wood burning stove, mold/mildew in t he home or tobacco smoke. Past evaluation has included chest CT (had URI symptoms in february [address] chest with primary. CT chest 02/28/13 with PARADISE 4.1 cm mass with cavitation. sputum analys is revealed pseudomonas with negative cytology and negative afb studies. she underwent bronchoscopy 05/17/13 when there was no improvement in CT findings after abx and bronch was unremarkable except for pseudomonas growth. she has been on cipro 02/2013, 05/2013, 06/2013, and 10/2013 -this time with oral steroids and has noted improvement in URI symptoms and CT chest has improved. etiology is still unclea r but does appear to be an infectious/inflammatory process and could be cryptogenic organizing pneumonitis. repeat CT chest 03/21/14 with stable size, less cavitation. did have ID consult with jennifer davila to consider inhaled VJ. she tolerated this for two full courses and part of a third but then she noticed more coughing/wheezing and stopped. most recent ct chest 04/19/15 with near resolution of left cavitary change but new patchy opacities). Encounter Diagnosis: ABNORMAL FINDING ON LUNG IMAGING, ASTHMA (Renamed from AIRWAY HYPERREACTIVITY), OBSTRUCTIVE SLEEP APNEA, ALLERGIC RHINITIS, OBESITY (Renamed from OBESE) Office Visit 06-May-2015 11:49 To 06-May-2015 13:47 Encounter Reason: ASTHMA, FOLLOW UP - The last clinic visit was 2 week(s) ago (primary is Dr. Donte Mckinney). No changes i [facility] n management were made at the last visit. The patient's asthma causes daytime symptoms most days. The patient's asthma is not disturbing sleep. Symptoms include wheezing, chest tightness, shortness of b reath and non-productive cough (daily), while symptoms do not include productive cough. The patient describes the difficulty breathing as chest tightness and dyspnea on exertion. The patient describes t his as worsening (progressive worsening over the past several weeks. worse today compared to visit 2 weeks ago. has been on medrol dose kendal from another provider since late last week, has two more days, which does seem to be a little helpful). Symptoms are exacerbated by activity. Symptoms are relieved by inhaler use (using albuterol 2-3x/day), rest and oral steroids (currently on medrol). Associated symptoms include allergy symptoms (stable, allergy shots q [address] Knight), while associated symptoms do not include fever. Current treatment includes inhaled albuterol, inhaled long-acting be ta-2 agonists, inhaled corticosteroids (dulera 200 mcg 2 puffs bid), inhaled anticholinergics (spiriva), leukotriene modifiers and immunotherapy ( desensitization). Bronchodilator use is becoming more fr equent. By report there is good compliance with treatment, good tolerance of treatment and poor symptom control. Pertinent medical history includes other pulmonary disease (sleep apnea, using cpap night ly. no issues and no snoring with cpap on). The patient has been exposed to animal dander (dog), while the patient has not been exposed to wood burning stove, mold/mildew in the home or tobacco smoke. P ast evaluation has included chest CT (had URI symptoms in february [address] chest with primary. CT chest 02/28/13 with PARADISE 4.1 cm mass with cavitation. sputum analysis revealed pseudomonas wit h negative cytology and negative afb studies. she underwent bronchoscopy when there was no improvement in CT findings after abx and bronch was unremarkable except for pseudomonas growth. she bolivar s been on cipro 02/2013, 05/2013, 06/2013, and 10/2013-this time with oral steroids and has noted improvement in URI symptoms and CT chest has improved. etiology is still unclear but does appear to be an infectious/inflammatory process and could be cryptogenic organizing pneumonitis. repeat CT chest 03/21/14 with stable size, less cavitation. did have ID consult with recommendation to consider inhaled TOB I. she tolerated this for two full courses and part of a third but then she noticed more coughing/wheezing and stopped. most recent ct chest 04/19/15 with near resolution of left cavitary change but new patchy opacities). Encounter Diagnosis: ASTHMA (Renamed from AIRWAY HYPERREACTIVITY), ABNORMAL FINDING ON LUNG IMAGING, ALLERGIC RHINITIS, GERD (GASTROESOPHAGEAL REFLUX DISEASE) Medication Order 25-Apr-2015 9:53 To 25-Apr-2015 9:59 Encounter Diagnosis: ASTHMA (Renamed from AIRWAY HYPERREACTIVITY) [facility] Order Only 22-Apr-2015 14:19 To 22-Apr-2015 14:23 Encounter Diagnosis: ABNORMAL FINDING ON LUNG IMAGING [facility] Historical Summary 19-Apr-2015 13:28 To 19-Apr-2015 13:31 [facility] Historical Summary 19-Apr-2015 12:53 To 19-Apr-2015 12:54 Encounter Reason: ASTHMA, FOLLOW UP - The last clinic visit was 6 month(s) ago (primary is Dr. Donet Mckinney, also seeing [facility] Dr. Knight). Management changes made at the last visit include none (referred to ID for evaluation, recommended inhaled vj vs IV abx therapy to eradicate pseudomonas). The patient's asthma causes day time symptoms most days. The patient's asthma is not disturbing sleep. Symptoms include wheezing, chest tightness, shortness of breath, productive cough (can be pale green) and non-productive cough (bryan aring throat). The patient describes the difficulty breathing as chest tightness and dyspnea on exertion. The patient describes this as improving ( symptoms overall stable, some increased cough when she is on the vj compared to weeks off vj. just now on second cycle on the nebulized abx. ct chest image done today and PARADISE appears improved). Symptoms are exacerbated by activity. Symptoms are relieved by inhaler use (rarely uses rescue) and rest. Associated symptoms include allergy symptoms (stable), while associated symptoms do not include fever or upper respiratory infection symptoms. Current patria tment includes inhaled albuterol, inhaled long-acting beta-2 agonists, inhaled corticosteroids (dulera 200 mcg 2 puffs bid) and inhaled anticholinergics ( spiriva). Bronchodilator use is staying the same . By report there is good compliance with treatment, good tolerance of treatment and fair symptom control. Pertinent medical history includes other pulmonary disease (sleep apnea, using cpap nightly. no issues). Past evaluation has included chest CT (had URI symptoms in february [address] chest with primary. CT chest 02/28/13 with PARADISE 4.1 cm mass with cavitation. sputum analysis revealed pseu domonas with negative cytology and negative afb studies. she underwent bronchoscopy 05/17/13 when there was no improvement in CT findings after abx and bronch was unremarkable except for pseudomonas lacey wth. she has been on cipro 02/2013, 05/2013, 06/2013, and 10/2013-this time with oral steroids and has noted improvement in URI symptoms and CT chest has improved. etiology is still unclear but does appea r to be an infectious/inflammatory process and could be cryptogenic organizing pneumonitis. repeat CT chest 03/21/14 with stable size, less cavitation. ). Office Visit 19-Apr-2015 12:39 To 19-Apr-2015 13:52 Encounter Reason: ASTHMA, FOLLOW UP - The last clinic visit was 6 month(s) ago (primary is Dr. Donte Mckinney, also seeing [facility] Dr. Knight). Management changes made at the last visit include none (referred to ID for evaluation, recommended inhaled vj that she used til 10/2014 and then was on bactrim 01/2015 for sinus infection that precipitated renal failure with rx including d/c bactrim with improvement but followed by adrenal insufficiency 02/2015 and rx with triamcinolone since that time and sees Dr. Knight.). The pa sharita's asthma causes daytime symptoms most days. The patient's asthma is not disturbing sleep. Symptoms include wheezing, chest tightness, shortness of breath and non-productive cough (sporadic), while symptoms do not include productive cough. The patient describes the difficulty breathing as chest tightness and dyspnea on exertion. The patient describes this as worsening (in last few weeks - ? aller gies(usually worse in Fall)). Symptoms are exacerbated by activity (and Fall season). Symptoms are relieved by inhaler use (rarely uses rescue) and rest. Associated symptoms include allergy symptoms (st able), while associated symptoms do not include fever or upper respiratory infection symptoms. Current treatment includes inhaled albuterol, inhaled long- acting beta-2 agonists, inhaled corticosteroids (dulera 200 mcg 2 puffs bid), inhaled anticholinergics (spiriva) and omalizumab (Xolair). Bronchodilator use is staying the same. By report there is good compliance with treatment, good tolerance of cliff atment and fair symptom control. Pertinent medical history includes other pulmonary disease (sleep apnea, using cpap nightly. no issues). Past evaluation has included chest CT (had URI symptoms in [address] chest with primary. CT chest 02/28/13 with PARADISE 4.1 cm mass with cavitation. sputum analysis revealed pseudomonas with negative cytology and negative afb studies. she underwent bro nchoscopy 05/17/13 when there was no improvement in CT findings after abx and bronch was unremarkable except for pseudomonas growth. she has been on cipro 2012, 05/2013, 06/2013, and 10/2013-this time with oral steroids and has noted improvement in URI symptoms and CT chest has improved. etiology is still unclear but does appear to be an infectious/ inflammatory process and could be cryptogenic organi zing pneumonitis. repeat CT chest 03/21/14 with stable size, less cavitation. ). Encounter Diagnosis: ABNORMAL FINDING ON LUNG IMAGING, ASTHMA (Renamed from AIRWAY HYPERREACTIVITY), GERD (GASTROESOPHAGEAL REFLUX DISEASE), ALLERGIC RHINITIS, OBESITY (Renamed from OBESE) Office Visit 11-Oct-2014 12:08 To 11-Oct-2014 13:21 Encounter Reason: ASTHMA, FOLLOW UP - The last clinic visit was 2 month(s) ago (primary is Dr. Donte Mckinney, also seeing [facility] Dr. Knight). Management changes made at the last visit include adding inhaled vj bid (alternating 28 days on and 28 days off). The patient's asthma causes daytime symptoms most days. The patient's as thma is not disturbing sleep. Symptoms include wheezing, chest tightness, shortness of breath, productive cough (can be pale green) and non-productive cough (clearing throat). The patient describes the difficulty breathing as chest tightness and dyspnea on exertion. The patient describes this as improving (symptoms overall stable, some increased cough when she is on the vj compared to weeks off vj . just now on second cycle on the nebulized abx. ct chest image done today and PARADISE appears improved). Symptoms are exacerbated by activity. Symptoms are relieved by inhaler use (rarely uses rescue) and rest. Associated symptoms include allergy symptoms (stable), while associated symptoms do not include fever or upper respiratory infection symptoms. Current treatment includes inhaled albuterol, inhaled long-acting beta-2 agonists, inhaled corticosteroids (dulera 200 mcg 2 puffs bid) and inhaled anticholinergics (spiriva). Bronchodilator use is staying the same. By report there is good compliance with treatment, good tolerance of treatment and fair symptom control. Pertinent medical history includes other pulmonary disease (sleep apnea, using cpap nightly. no issues). Past evaluation has included est CT (had URI symptoms in february [address] chest with primary. CT chest 02/28/13 with PARADISE 4.1 cm mass with cavitation. sputum analysis revealed pseudomonas with negative cytology and negati ve afb studies. she underwent bronchoscopy 05/17/13 when there was no improvement in CT findings after abx and bronch was unremarkable except for pseudomonas growth. she has been on cipro 02/2013, , 06/2013, and 10/2013-this time with oral steroids and has noted improvement in URI symptoms and CT chest has improved. etiology is still unclear but does appear to be an infectious/inflammatory proces s and could be cryptogenic organizing pneumonitis. repeat CT chest 03/21/14 with stable size, less cavitation. ). Encounter Diagnosis: ABNORMAL FINDING ON LUNG IMAGING, ASTHMA (Renamed from AIRWAY HYPERREACTIVITY), OBSTRUCTIVE SLEEP APNEA, BACTERIAL INFECTION DUE TO PSEUDOMONAS, OBESITY (Renamed from OBESE), GERD (GASTROESOPHAGEAL REFLUX DISEASE) Medication Order 28-Aug-2014 11:49 To 28-Aug-2014 12:22 Encounter Diagnosis: BACTERIAL INFECTION DUE TO PSEUDOMONAS [facility] Office Visit 02-Aug-2014 10:32 To 02-Aug-2014 16:02 Encounter Reason: ASTHMA, FOLLOW UP - The last clinic visit was 3 month(s) ago (primary is Dr. Donte Mckinney, also seeing [facility] Dr. Knight). Management changes made at the last visit include none (referred to ID for evaluation, recommended inhaled vj vs IV abx therapy to eradicate pseudomonas). The patient's asthma causes day time symptoms 1 to 2 times per week. The patient's asthma is disturbing sleep ( coughing). Symptoms include wheezing, chest tightness, shortness of breath and non-productive cough (clearing throat), whil e symptoms do not include productive cough. The patient describes the difficulty breathing as chest tightness and dyspnea on exertion. The patient describes this as improving (continues with similar sym ptoms from last visit but less frequent. denies recent abx or need for rescue) . Symptoms are exacerbated by activity. Symptoms are relieved by inhaler use ( hasn't needed rescue in a couple months) and r est. Associated symptoms include allergy symptoms (stable), while associated symptoms do not include fever or upper respiratory infection symptoms. Current treatment includes inhaled albuterol, inhaled long-acting beta-2 agonists, inhaled corticosteroids (dulera 200 mcg 2 puffs bid) and inhaled anticholinergics (spiriva). Bronchodilator use is becoming less frequent. By report there is good compliance with treatment, good tolerance of treatment and fair symptom control. Pertinent medical history includes other pulmonary disease (sleep apnea, using cpap nightly. no issues). Past evaluation has includ ed chest CT (had URI symptoms in february [address] chest with primary. CT chest 02/28/13 with PARADISE 4.1 cm mass with cavitation. sputum analysis revealed pseudomonas with negative cytology and n egative afb studies. she underwent bronchoscopy 05/17/13 when there was no improvement in CT findings after abx and bronch was unremarkable except for pseudomonas growth. she has been on cipro 02/2013, 07/2012, 06/2013, and 10/2013-this time with oral steroids and has noted improvement in URI symptoms and CT chest has improved. etiology is still unclear but does appear to be an infectious/inflammatory p rocess and could be cryptogenic organizing pneumonitis. repeat CT chest 03/21/14 with stable size, less cavitation). Encounter Diagnosis: ASTHMA (Renamed from AIRWAY HYPERREACTIVITY), ABNORMAL FINDING ON LUNG IMAGING, BACTERIAL INFECTION DUE TO PSEUDOMONAS, OBSTRUCTIVE SLEEP APNEA Office Visit 04-May-2014 12:37 To 04-May-2014 13:35 Encounter Reason: ASTHMA, FOLLOW UP - The last clinic visit was 1 month(s) ago (primary is Dr. Donte Mckinney, also seeing [facility] Dr. Knight). Management changes made at the last visit include none (ct chest done 03/21/14 with persistent PARADISE abnormality but stable size and less cavitation) . The patient's asthma causes daytime sympt oms most days. The patient's asthma is disturbing sleep (coughing). Symptoms include wheezing, chest tightness, shortness of breath and non-productive cough , while symptoms do not include productive cou gh. The patient describes the difficulty breathing as chest tightness and dyspnea on exertion. The patient describes this as worsening (she called a couple weeks after last appt with URI symptoms and wa s given script for cipro. she didn't improve after extending the course. sputum culture was repeated and grew e coli. was started on augmentin. she called wednesday to report bright red blood in mucous. th is has resolved. overall symptoms are improved and she still has more abx to take). Symptoms are exacerbated by activity. Symptoms are relieved by inhaler use (using rescue less than 1x/week) and rest. Associated symptoms include upper respiratory infection symptoms and allergy symptoms (stable), while associated symptoms do not include fever. Current treatment includes inhaled albuterol, inhaled long -acting beta-2 agonists, inhaled corticosteroids (dulera 200 mcg 2 puffs bid) and inhaled anticholinergics (spiriva). Bronchodilator use is staying the same. By report there is good compliance with patria tment, good tolerance of treatment and fair symptom control. Pertinent medical history includes other pulmonary disease (sleep apnea, using cpap nightly. no issues). Past evaluation has included chest C T (had URI symptoms in february [address] chest with primary. CT chest 02/28/13 with PARADISE 4.1 cm mass with cavitation. sputum analysis revealed pseudomonas with negative cytology and negative af b studies. she underwent bronchoscopy 05/17/13 when there was no improvement in CT findings after abx and bronch was unremarkable except for pseudomonas growth. she has been on cipro 02/2013, 05/2013, , and 10/2013-this time with oral steroids and has noted improvement in URI symptoms and CT chest has improved. etiology is still unclear but does appear to be an infectious/inflammatory process and could be cryptogenic organizing pneumonitis. repeat CT chest 03/21/14 with stable size, less cavitation). Encounter Diagnosis: ASTHMA (Renamed from AIRWAY HYPERREACTIVITY), ABNORMAL FINDING ON LUNG IMAGING Medication Order 27-Apr-2014 11:52 To 02-May-2014 17:22 Encounter Diagnosis: ASTHMA (Renamed from AIRWAY HYPERREACTIVITY) [facility] Order Only 18-Apr-2014 15:07 To 18-Apr-2014 15:08 Encounter Diagnosis: BACTERIAL INFECTION DUE TO PSEUDOMONAS [facility] Medication Order 11-Apr-2014 14:55 To 11-Apr-2014 15:06 Encounter Diagnosis: BACTERIAL INFECTION DUE TO PSEUDOMONAS [facility] Office Visit 21-Mar-2014 9:37 To 21-Mar-2014 13:33 Encounter Reason: ASTHMA, FOLLOW UP - The last clinic visit was 3 month(s) ago (primary is Dr. Donte Mckinney, also seeing [facility] Dr. Knight). No changes in management were made at the last visit. The patient 's asthma causes daytime symptoms 1 to 2 times per week. The patient's asthma is not disturbing sleep. Symptoms include whe ezing, chest tightness, shortness of breath and non-productive cough, while symptoms do not include productive cough. The patient describes the difficulty breathing as chest tightness and dyspnea on exe rtion. The patient describes this as unchanged. Symptoms are exacerbated by activity. Symptoms are relieved by inhaler use (using rescue less than 1x/week) and rest. Associated symptoms include allergy symptoms (stable), while associated symptoms do not include fever or upper respiratory infection symptoms. Current treatment includes inhaled albuterol, inhaled long-acting beta-2 agonists, inhaled gordo icosteroids (dulera 200 mcg 2 puffs bid) and inhaled anticholinergics (spiriva) . Bronchodilator use is staying the same. By report there is good compliance with treatment, good tolerance of treatment an d fair symptom control. Pertinent medical history includes other pulmonary disease (sleep apnea, using cpap nightly. no issues). Past evaluation has included chest CT (had URI symptoms in february 2013 wh ich lead to CT chest with primary. CT chest 02/28/13 with PARADISE 4.1 cm mass with cavitation. sputum analysis revealed pseudomonas with negative cytology and negative afb studies. she underwent bronchoscopy 05/17/13 when there was no improvement in CT findings after abx and bronch was unremarkable except for pseudomonas growth. she has been on cipro 02/2013, , 06/2013, and 10/2013-this time with oral steroids and has noted improvement in URI symptoms and CT chest has improved. etiology is still unclear but does appear to be an infectious/inflammatory process and could be cryptogenic organizing pneu monitis. repeat CT chest today appears stable, official interpretation and comparison from the radiologist is pending). Encounter Diagnosis: ASTHMA (Renamed from AIRWAY HYPERREACTIVITY), ALLERGIC RHINITIS, GERD (GASTROESOPHAGEAL REFLUX DISEASE), OBSTRUCTIVE SLEEP APNEA, OBESITY (Renamed from OBESE), ABNORMAL FINDING ON LUNG IMAGING Office Visit 21-Nov-2013 13:18 To 21-Nov-2013 14:16 Encounter Reason: ASTHMA, FOLLOW UP - The last clinic visit was 1 month(s) ago (primary is Dr. Donte Mckinney, also seeing [facility] Dr. Knight). No changes in management were made at the last visit. The patient 's asthma causes daytime symptoms most days. The patient's asthma is disturbing sleep (coughing). Symptoms include wheezing , chest tightness, shortness of breath and productive cough (green). The patient describes the difficulty breathing as chest tightness and dyspnea on exertion. The patient describes this as worsening (c ough has been worse again). Symptoms are exacerbated by activity. Symptoms are relieved by inhaler use and rest. Associated symptoms do not include fever or upper respiratory infection symptoms. Current treatment includes inhaled albuterol, inhaled long-acting beta-2 agonists, inhaled corticosteroids (dulera 200 mcg 2 puffs bid) and inhaled anticholinergics (spiriva). Bronchodilator use is staying the same. By report there is good compliance with treatment, good tolerance of treatment and fair symptom control. Pertinent medical history includes other pulmonary disease (sleep apnea, using cpap nightl y). Since visit of May 12, 2013 the patient underwent bronchoscopy on May 17, 2013 with visual evidence of slight erythema and swelling of the left upper lobe and the only positive finding b eing Pseudomonas on culture. On visit of May 29, 2013 the patient tells me she had been fairly stable but still not well but started cipro 500 mg bid on 05/22/2013 and feels much better.less cou gh and less sputum, light green, no fever, MATA unchanged, sporadic wheeze with walking, no chest pain, cheonic edema, +/- pnd, - gerd on rx, weight is stable, sleeps well.compliant with rx including CPA P..has had flu vaccine and pneumonia vaccine.no other new s/s or medical problems. Since visit of May 29, 2013 the patient did get laboratory work drawn on May 30, 2013 that revealed a hem oglobin of 11.1, hematocrit 32.5%, white blood cell count 10,200, platelets 644 ,000, IgE level less than 115, ANCA negative, rheumatoid factor of 14 with normal being less than 14, alpha-1 level of 242 and phenotype of M1 M2. On visit of July 06, 2013 the patient tells me she completed cipro rx 06/18 and feels better.compliant with rx.less dyspneic, less cough, little wheeze with exertion, no fever, chronic edema better off of cipro, no chest pain, +/- pnd, no gerd, no aspiration episodes, weight is down 4#, sleeping well with CPAP rx.has had vaccines.no other new s/s or medical problems but persistent arthritic s/s with much back discomfort. On visit of November 21, 2013 the patient tells me she has recently seen her primary doctor who diagnosed oral thrush( is on dulera and was on cipr o/prednisone 10/30-11/14/2013 for worsening asthma) with nystatin to be started. The patient also tells me she is compliant with rx including CPAP nightly.has felt weak, shaky, and tired and tells me she has had appt. with primary and told her anemia is worse.s/s began with prednisone rx and is now better.MATA remains with walking room to room, +/- wheeze, little cough, no chest pain, no fever, no ed emanuel, weight is up 3#, +/- pnd, - gerd, sleeps well.no other new interval s/s or medical problems but persistent low back s/s being rx. Encounter Diagnosis: ASTHMA (Renamed from AIRWAY HYPERREACTIVITY), ABNORMAL FINDING ON LUNG IMAGING, BACTERIAL INFECTION DUE TO PSEUDOMONAS, GERD (GASTROESOPHAGEAL REFLUX DISEASE), OBESITY (Renamed from OBESE), OBSTRUCTIVE SLEEP APNEA, ALLERGIC RHINITIS, PULMONARY NODULE Medication Order 10-Nov-2013 16:17 To 13-Nov-2013 8:04 Encounter Diagnosis: BACTERIAL INFECTION DUE TO PSEUDOMONAS [facility] Medication Order 01-Nov-2013 11:27 To 08-Nov-2013 17:51 Encounter Diagnosis: BACTERIAL INFECTION DUE TO PSEUDOMONAS [facility] Order Only 28-Jul-2013 15:54 To 28-Jul-2013 16:10 Encounter Diagnosis: ABNORMAL FINDING [place] L[place]G [place] [facility] [place] 06-Jul-2013 14:42 To 06-Jul-2013 14:44 Encounter Reason: ASTHMA, FOLLOW UP - The last clinic visit was 1 month(s) ago (primary is Dr. Donte Mckinney, also seeing [facility] Office Dr. Knight). No changes in management were made at the last visit. The patient 's asthma causes daytime symptoms most days. The patient's asthma is disturbing sleep (coughing). Symptoms include wheezing , chest tightness, shortness of breath and productive cough (green). The patient describes the difficulty breathing as chest tightness and dyspnea on exertion. The patient describes this as worsening (c ough has been worse again). Symptoms are exacerbated by activity. Symptoms are relieved by inhaler use and rest. Associated symptoms do not include fever or upper respiratory infection symptoms. Current treatment includes inhaled albuterol, inhaled long-acting beta-2 agonists, inhaled corticosteroids (dulera 200 mcg 2 puffs bid) and inhaled anticholinergics (spiriva). Bronchodilator use is staying the same. By report there is good compliance with treatment, good tolerance of treatment and fair symptom control. Pertinent medical history includes other pulmonary disease (sleep apnea, using cpap nightl y). Since visit of May 12, 2013 the patient underwent bronchoscopy on May 17, 2013 with visual evidence of slight erythema and swelling of the left upper lobe and the only positive finding b eing Pseudomonas on culture. On visit of May 29, 2013 the patient tells me she had been fairly stable but still not well but started cipro 500 mg bid on 05/22/2013 and feels much better.less cou gh and less sputum, light green, no fever, MATA unchanged, sporadic wheeze with walking, no chest pain, cheonic edema, +/- pnd, - gerd on rx, weight is stable, sleeps well.compliant with rx including CPA P..has had flu vaccine and pneumonia vaccine.no other new s/s or medical problems. Since visit of May 29, 2013 the patient did get laboratory work drawn on May 30, 2013 that revealed a hem oglobin of 11.1, hematocrit 32.5%, white blood cell count 10,200, platelets 644 ,000, IgE level less than 115, ANCA negative, rheumatoid factor of 14 with normal being less than 14, alpha-1 level of 242 and phenotype of M1 M2. On visit of July 06, 2013 the patient tells me Office Visit 06-Jul-2013 14:19 To 06-Jul-2013 15:45 Encounter Reason: ASTHMA, FOLLOW UP - The last clinic visit was 1 month(s) ago (primary is Dr. Donte Mckinney, also seeing [facility] Office Dr. Knight). No changes in management were made at the last visit. The patient 's asthma causes daytime symptoms most days. The patient's asthma is disturbing sleep (coughing). Symptoms include wheezing , chest tightness, shortness of breath and productive cough (green). The patient describes the difficulty breathing as chest tightness and dyspnea on exertion. The patient describes this as worsening (c ough has been worse again). Symptoms are exacerbated by activity. Symptoms are relieved by inhaler use and rest. Associated symptoms do not include fever or upper respiratory infection symptoms. Current treatment includes inhaled albuterol, inhaled long-acting beta-2 agonists, inhaled corticosteroids (dulera 200 mcg 2 puffs bid) and inhaled anticholinergics (spiriva). Bronchodilator use is staying the same. By report there is good compliance with treatment, good tolerance of treatment and fair symptom control. Pertinent medical history includes other pulmonary disease (sleep apnea, using cpap nightl y). Since visit of May 12, 2013 the patient underwent bronchoscopy on May 17, 2013 with visual evidence of slight erythema and swelling of the left upper lobe and the only positive finding b eing Pseudomonas on culture. On visit of May 29, 2013 the patient tells me she had been fairly stable but still not well but started cipro 500 mg bid on 05/22/2013 and feels much better.less cou gh and less sputum, light green, no fever, MATA unchanged, sporadic wheeze with walking, no chest pain, cheonic edema, +/- pnd, - gerd on rx, weight is stable, sleeps well.compliant with rx including CPA P..has had flu vaccine and pneumonia vaccine.no other new s/s or medical problems. Since visit of May 29, 2013 the patient did get laboratory work drawn on May 30, 2013 that revealed a hem oglobin of 11.1, hematocrit 32.5%, white blood cell count 10,200, platelets 644 ,000, IgE level less than 115, ANCA negative, rheumatoid factor of 14 with normal being less than 14, alpha-1 level of 242 and phenotype of M1 M2. On visit of July 06, 2013 the patient tells me she completed cipro rx 06/18 and feels better.compliant with rx.less dyspneic, less cough, little wheeze with exertion, no fever, chronic edema better off of cipro, no chest pain, +/- pnd, no gerd, no aspiration episodes, weight is down 4#, sleeping well with CPAP rx.has had vaccines.no other new s/s or medical problems but persistent arthritic s/s with much back discomfort. Encounter Diagnosis: ABNORMAL FINDING ON LUNG IMAGING, BACTERIAL INFECTION DUE TO PSEUDOMONAS, ASTHMA (Renamed from AIRWAY HYPERREACTIVITY), OBSTRUCTIVE SLEEP APNEA, OBESITY (Renamed from OBESE), GERD (GASTROESOPHAGEAL REFLUX DISEASE), OSTEOARTHRITIS Historical Summary 30-Jun-2013 16:11 To 30-Jun-2013 16:15 Encounter Reason: ASTHMA, FOLLOW UP - The last clinic visit was 1 month(s) ago (primary is Dr. Donte Mckinney, also seeing [facility] Office Dr. Knight). No changes in management were made at the last visit. The patient 's asthma causes daytime symptoms most days. The patient's asthma is disturbing sleep (coughing). Symptoms include wheezing , chest tightness, shortness of breath and productive cough (green). The patient describes the difficulty breathing as chest tightness and dyspnea on exertion. The patient describes this as worsening (c ough has been worse again). Symptoms are exacerbated by activity. Symptoms are relieved by inhaler use and rest. Associated symptoms do not include fever or upper respiratory infection symptoms. Current treatment includes inhaled albuterol, inhaled long-acting beta-2 agonists, inhaled corticosteroids (dulera 200 mcg 2 puffs bid) and inhaled anticholinergics (spiriva). Bronchodilator use is staying the same. By report there is good compliance with treatment, good tolerance of treatment and fair symptom control. Pertinent medical history includes other pulmonary disease (sleep apnea, using cpap nightl y). Since visit of May 12, 2013 the patient underwent bronchoscopy on May 17, 2013 with visual evidence of slight erythema and swelling of the left upper lobe and the only positive finding b eing Pseudomonas on culture. On visit of May 29, 2013 the patient tells me she had been fairly stable but still not well but started cipro 500 mg bid on 05/22/2013 and feels much better.less cou gh and less sputum, light green, no fever, MATA unchanged, sporadic wheeze with walking, no chest pain, cheonic edema, +/- pnd, - gerd on rx, weight is stable, sleeps well.compliant with rx including CPA P..has had flu vaccine and pneumonia vaccine.no other new s/s or medical problems. Since visit of May 29, 2013 the patient did get laboratory work drawn on May 30, 2013 that revealed a hem oglobin of 11.1, hematocrit 32.5%, white blood cell count 10,200, platelets 644 ,000, IgE level less than 115, ANCA negative, rheumatoid factor of 14 with normal being less than 14, alpha-1 level of 242 and phenotype of M1 M2. Historical Summary 29-May-2013 10:58 To 29-May-2013 10:58 Encounter Reason: ASTHMA, FOLLOW UP - The last clinic visit was 1 month(s) ago (primary is Dr. Donte Mckinney, also seeing [facility] Office Dr. Knight). No changes in management were made at the last visit. The patient 's asthma causes daytime symptoms most days. The patient's asthma is disturbing sleep (coughing). Symptoms include wheezing , chest tightness, shortness of breath and productive cough (green). The patient describes the difficulty breathing as chest tightness and dyspnea on exertion. The patient describes this as worsening (c ough has been worse again). Symptoms are exacerbated by activity. Symptoms are relieved by inhaler use and rest. Associated symptoms do not include fever or upper respiratory infection symptoms. Current treatment includes inhaled albuterol, inhaled long-acting beta-2 agonists, inhaled corticosteroids (dulera 200 mcg 2 puffs bid) and inhaled anticholinergics (spiriva). Bronchodilator use is staying the same. By report there is good compliance with treatment, good tolerance of treatment and fair symptom control. Pertinent medical history includes other pulmonary disease (sleep apnea, using cpap nightl y). Since visit of May 12, 2013 the patient underwent bronchoscopy on May 17, 2013 with visual evidence of slight erythema and swelling of the left upper lobe and the only positive finding b eing Pseudomonas on culture. On visit of May 29, 2013 the patient tells me Office Visit 29-May-2013 10:55 To 29-May-2013 11:21 Encounter Reason: ASTHMA, FOLLOW UP - The last clinic visit was 1 month(s) ago (primary is Dr. Donte Mckinney, also seeing [facility] Office Dr. Knight). No changes in management were made at the last visit. The patient 's asthma causes daytime symptoms most days. The patient's asthma is disturbing sleep (coughing). Symptoms include wheezing , chest tightness, shortness of breath and productive cough (green). The patient describes the difficulty breathing as chest tightness and dyspnea on exertion. The patient describes this as worsening (c ough has been worse again). Symptoms are exacerbated by activity. Symptoms are relieved by inhaler use and rest. Associated symptoms do not include fever or upper respiratory infection symptoms. Current treatment includes inhaled albuterol, inhaled long-acting beta-2 agonists, inhaled corticosteroids (dulera 200 mcg 2 puffs bid) and inhaled anticholinergics (spiriva). Bronchodilator use is staying the same. By report there is good compliance with treatment, good tolerance of treatment and fair symptom control. Pertinent medical history includes other pulmonary disease (sleep apnea, using cpap nightl y). Since visit of May 12, 2013 the patient underwent bronchoscopy on May 17, 2013 with visual evidence of slight erythema and swelling of the left upper lobe and the only positive finding b eing Pseudomonas on culture. On visit of May 29, 2013 the patient tells me she had been fairly stable but still not well but started cipro 500 mg bid on 05/22/2013 and feels much better.less cou gh and less sputum, light green, no fever, MATA unchanged, sporadic wheeze with walking, no chest pain, cheonic edema, +/- pnd, - gerd on rx, weight is stable, sleeps well.compliant with rx including CPA P..has had flu vaccine and pneumonia vaccine.no other new s/s or medical problems. Encounter Diagnosis: BACTERIAL INFECTION DUE TO PSEUDOMONAS, ABNORMAL FINDING ON LUNG IMAGING, ASTHMA (Renamed from AIRWAY HYPERREACTIVITY), OBSTRUCTIVE SLEEP APNEA, OBESITY (Renamed from OBESE) Historical Summary 28-May-2013 13:43 To 28-May-2013 13:46 Encounter Reason: ASTHMA, FOLLOW UP - The last clinic visit was 1 month(s) ago (primary is Dr. Donte Mckinney, also seeing [facility] Office Dr. Knight). No changes in management were made at the last visit. The patient 's asthma causes daytime symptoms most days. The patient's asthma is disturbing sleep (coughing). Symptoms include wheezing , chest tightness, shortness of breath and productive cough (green). The patient describes the difficulty breathing as chest tightness and dyspnea on exertion. The patient describes this as worsening (c ough has been worse again). Symptoms are exacerbated by activity. Symptoms are relieved by inhaler use and rest. Associated symptoms do not include fever or upper respiratory infection symptoms. Current treatment includes inhaled albuterol, inhaled long-acting beta-2 agonists, inhaled corticosteroids (dulera 200 mcg 2 puffs bid) and inhaled anticholinergics (spiriva). Bronchodilator use is staying the same. By report there is good compliance with treatment, good tolerance of treatment and fair symptom control. Pertinent medical history includes other pulmonary disease (sleep apnea, using cpap nightl y). Since visit of May 12, 2013 the patient underwent bronchoscopy on May 17, 2013 with visual evidence of slight erythema and swelling of the left upper lobe and the only positive finding being Pseudomonas on culture. Medication Order 22-May-2013 8:03 To 22-May-2013 9:33 Encounter Diagnosis: BACTERIAL INFECTION DUE TO PSEUDOMONAS [facility] Office Office Visit 12-May-2013 14:37 To 12-May-2013 15:37 Encounter Reason: ASTHMA, FOLLOW UP - The last clinic visit was 1 month(s) ago (primary is Dr. Donte Mckinney, also seeing [facility] Office Dr. Knight). No changes in management were made at the last visit. The patient 's asthma causes daytime symptoms most days. The patient's asthma is disturbing sleep (coughing). Symptoms include wheezing , chest tightness, shortness of breath and productive cough (green). The patient describes the difficulty breathing as chest tightness and dyspnea on exertion. The patient describes this as worsening (c ough has been worse again). Symptoms are exacerbated by activity. Symptoms are relieved by inhaler use and rest. Associated symptoms do not include fever or upper respiratory infection symptoms. Current treatment includes inhaled albuterol, inhaled long-acting beta-2 agonists, inhaled corticosteroids (dulera 200 mcg 2 puffs bid) and inhaled anticholinergics (spiriva). Bronchodilator use is staying the same. By report there is good compliance with treatment, good tolerance of treatment and fair symptom control. Pertinent medical history includes other pulmonary disease (sleep apnea, using cpap nightly). Encounter Diagnosis: ABNORMAL FINDING ON LUNG IMAGING, ASTHMA (Renamed from AIRWAY HYPERREACTIVITY), OBSTRUCTIVE SLEEP APNEA Office Visit 21-Apr-2013 12:40 To 21-Apr-2013 15:15 Encounter Reason: ASTHMA, FOLLOW UP - The last clinic visit was 1 week(s) ago (primary is Dr. Donte Mckinney, also seeing [facility] Office blanca Knight). Management changes made at the last visit include none (she is here today for CT chest follow up). The patient's asthma causes daytime symptoms 1 to 2 times per week (more with increased ac tivity). The patient's asthma is not disturbing sleep. Symptoms include wheezing, chest tightness, shortness of breath and productive cough. The patient describes the difficulty breathing as chest tight ness and dyspnea on exertion. The patient describes this as unchanged. Symptoms are exacerbated by activity. Symptoms are relieved by inhaler use and rest. Associated symptoms do not include fever or up per respiratory infection symptoms. Current treatment includes inhaled albuterol, inhaled long-acting beta-2 agonists, inhaled corticosteroids (dulera 200 mcg 2 puffs bid) and inhaled anticholinergics ( spiriva). Bronchodilator use is becoming less frequent (hasn't needed lately). By report there is good compliance with treatment, good tolerance of treatment and fair symptom control. Pertinent medical history includes other pulmonary disease (sleep apnea, using cpap nightly). Encounter Diagnosis: ABNORMAL FINDING ON LUNG IMAGING, ASTHMA (Renamed from AIRWAY HYPERREACTIVITY) Office Visit 10-Apr-2013 9:41 To 10-Apr-2013 10:49 Encounter Reason: ASTHMA, FOLLOW UP - The last clinic visit was 1 month(s) ago (primary is Dr. Donte Mckinney, also seeing [facility] Office Dr. Knight). Management changes made at the last visit include changing the dose of advair back down to 250/50 (she was doing well until december 2012. started to have increased dyspnea and wheezing. was s een by Dr. Knight and started on oral steroids which she took most of the summer- off x 10 days. was also coughing and bringing up green mucous. first abx was zpac 2 weeks ago. she doesn't feel any bet ter than december, she actually feels more dyspneic without the oral steroids. she hasn't had any fevers. she developed a pain under the left shoulder blade prior the abx the improved but seems to have wors ened again. 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 hasn't been around sick people, no exposure to TB. she doesn 't recall any ppd tests but does know that her hu breonnaand tests positive from prior exposure in other [place] where [place]. he was never treated) and ordering sputum analysis, she had pseudomonas growth and was treated with cipro x 10 days and she is feeling 75% improved. The patient's asthma causes daytime symptoms 1 to 2 times per week (more with increased activity). The patient's asthma is not disturbing sleep. Symptoms include wheezing, chest tightness, shortness of breath and productive cough. The patient describes the difficulty breathing as chest tightness and dyspnea on exertion. The patient describes this as improving. Symptoms ar e exacerbated by activity. Symptoms are relieved by inhaler use and rest. Associated symptoms do not include fever or upper respiratory infection symptoms. Current treatment includes inhaled albuterol, inhaled long-acting beta-2 agonists, inhaled corticosteroids (dulera 200 mcg 2 puffs bid) and inhaled anticholinergics (spiriva). Bronchodilator use is becoming less frequent. By report there is good co mpliance with treatment, good tolerance of treatment and fair symptom control. Pertinent medical history includes other pulmonary disease (sleep apnea, using cpap nightly). Encounter Diagnosis: ASTHMA (Renamed from AIRWAY HYPERREACTIVITY), PULMONARY NODULE, OBESITY (Renamed from OBESE) Medication Order 21-Mar-2013 17:32 To 24-Mar-2013 16:08 Encounter Diagnosis: ASTHMA (Renamed from AIRWAY HYPERREACTIVITY) [place] [facility] Medication Order 10-Mar-2013 12:38 To 10-Mar-2013 13:02 Encounter Diagnosis: BACTERIAL INFECTION DUE TO PSEUDOMONAS [facility] Order Only 03-Mar-2013 10:58 To 07-Mar-2013 16:05 Encounter Diagnosis: ABNORMAL FINDING ON LUNG IMAGING [place] [facility] Office Visit 02-Mar-2013 15:20 To 02-Mar-2013 16:32 Encounter Reason: ASTHMA, FOLLOW UP - The last clinic visit was 7 month(s) ago (primary is Dr. Donte Mckinney). Management [facility] Office changes made at the last visit include changing the dose of advair back down to 250/50 (she was doing well until december 2012. started to have increased dyspnea and wheezing. was seen by Dr. Knight and [facility] on oral steroids which she took most of the summer- off x 10 days. was also coughing and bringing up green mucous. first abx was zpac 2 weeks ago. she doesn't feel any better than december, she actual ly feels more dyspneic without the oral steroids. she hasn't had any fevers. she developed a pain under the left shoulder blade prior the abx the improved but seems to have worsened again. 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 hasn't been around sick people, no exposure to TB. she doesn't recall any ppd tests but does know that her tests positive from prior exposure in other counties where [place] went for work. he was never treated) . The patient's asthma causes daytime symptoms most days. The patient's asthma is not disturbing sleep. Symptoms include wh eezing, chest tightness, shortness of breath and productive cough. The patient describes the difficulty breathing as chest tightness and dyspnea on exertion. The patient describes this as worsening. Sym ptoms are exacerbated by activity. Symptoms are relieved by inhaler use (using nebs daily, not much help lately) and rest. Associated symptoms include upper respiratory infection symptoms, while associa danis symptoms do not include fever. Current treatment includes inhaled albuterol , inhaled long-acting beta-2 agonists, inhaled corticosteroids (back up to advair 500/[address] Antonia caballero has her on bactrim daily for recurrent bronchitis) and inhaled anticholinergics (spiriva started 2 weeks ago). Bronchodilator use is becoming more frequent. By report there is good compliance with cliff atment, good tolerance of treatment and poor symptom control. Pertinent medical history includes other pulmonary disease (sleep apnea, using cpap nightly). Encounter Diagnosis: ABNORMAL FINDING ON LUNG IMAGING Office Visit 07-Oct-2012 12:15 To 07-Oct-2012 12:58 Encounter Reason: Asthma follow up - The last clinic visit was 2 month(s) ago (primary is Dr. Donte Mckinney). Management [facility] Office changes made at the last visit include changing the dose of advair to 500/50 for 2 months due to increased symptoms. Symptoms include wheezing (occ) and shortness of breath (occ at this point, improved from last visit), while symptoms do not include chest tightness, productive cough, non-productive cough or chest pain. The patient's asthma causes daytime symptoms 1 to 2 times per week. The patient's a sthma is not disturbing sleep. The patient describes the difficulty breathing as dyspnea on exertion. The patient describes this as improving (feels back to baseline status). Symptoms are exacerbated by cold temperature and activity. Symptoms are relieved by inhaler use and rest. Associated symptoms do not include fever or upper respiratory infection symptoms. Current treatment includes inhaled albute rol, inhaled long-acting beta-2 agonists, inhaled corticosteroids (advair) and leukotriene modifiers. Bronchodilator use is becoming less frequent. By report there is good compliance with treatment, goo d tolerance of treatment and good symptom control. Pertinent medical history includes other pulmonary disease (sleep apnea, on cpap nightly. home care company is [employer]. gets supplies prn. able to wear cpap all night without any respiratory symptoms. feels more rested with use), allergic rhinitis and gastroesophageal reflux. Encounter Diagnosis: ASTHMA (Renamed from [employer]), PABLITO (OBSTRUCTIVE SLEEP APNEA) (327.23), GERD ( GASTROESOPHAGEAL REFLUX DISEASE) (530.81), AR (ALLERGIC RHINITIS) (477.9), OBESITY (Renamed from OBESE) Office Visit 08-Aug-2012 10:34 To 08-Aug-2012 11:37 Encounter Reason: Asthma follow up - The last clinic visit was 6 month(s) ago (primary is Dr. Donte Mckinney). [place] [facility] at the last visit. Symptoms include wheezing (occ) and shortness of breath (any activity at this point. she had bronchitis/asthma exacerbation in may. treated by Dr. Knight with augmentin x 2 and prednisone taper. acute symptoms are gone, feeling about 50% better. she also had GI issues and a reaction to a new pain medication that have left her "not feeling well". she has had bronchitis in the past but this event "lasted longer"), while symptoms do not include chest tightness, productive cough, non-productive cough or chest pain. The patient's asthma causes daytime symp toms most days. The patient's asthma is not disturbing sleep. The patient describes the difficulty breathing as dyspnea on exertion. The patient describes this as worsening. Symptoms are exacerbated by cold temperature and activity. Symptoms are relieved by inhaler use and rest. Associated symptoms do not include fever or upper respiratory infection symptoms. Current treatment includes inhaled albuter ol, inhaled long-acting beta-2 agonists, inhaled corticosteroids (advair 250/ 50 bid) and leukotriene modifiers. Bronchodilator use is becoming more frequent. By report there is good compliance with patria tment, good tolerance of treatment and fair symptom control. Pertinent medical history includes other pulmonary disease (sleep apnea, on cpap nightly. home care company is [employer]. gets supplies prn. ab le to wear cpap all night without any respiratory symptoms. feels more rested with use), allergic rhinitis and gastroesophageal reflux. denies recent hospitalizations. Encounter Diagnosis: PULMONARY NODULE (518.89) , ASTHMA (493.90), PABLITO (OBSTRUCTIVE SLEEP APNEA) (327.23), OBESITY (278.00), AR (ALLERGIC RHINITIS) (477.9), GERD (GASTROESOPHAGEAL REFLUX DISEASE) (530.81) Medication Order 30-Jun-2012 17:24 To 30-Jun-2012 17:26 Encounter Diagnosis: ASTHMA (493.90) [facility] Office Office Visit 04-Feb-2012 14:33 To 04-Feb-2012 15:23 Encounter Reason: Asthma follow up - The last clinic visit was 6 month(s) ago. No changes in management were made at t [facility] he last visit. Symptoms include shortness of breath (exertional, stable. improves with rest, rarely needs albuterol), while symptoms do not include wheezing, chest tightness, productive cough, non-produ ctive cough or chest pain. The patient's asthma causes daytime symptoms most days. The patient's asthma never disturbs sleep. The patient describes the difficulty breathing as dyspnea on exertion. The p atient describes this as unchanged. Symptoms are exacerbated by activity. Symptoms are relieved by inhaler use and rest. Associated symptoms do not include fever or upper respiratory infection symptoms. Current treatment includes inhaled albuterol, inhaled long-acting beta-2 agonists, inhaled corticosteroids (advair 250/50 bid) and leukotriene modifiers. Bronchodilator use is staying the same. By repo rt there is good compliance with treatment, good tolerance of treatment and good symptom control (ended up with increased symptoms on symbicort, was changed back to advair end of october or early november by Dr. Knight)., [ADDITIONAL REASON] Sleep follow up - The sleep disorder is characterized as obstructive sleep apnea. The patient gets approximately 7 hours of sleep per night. Current treatment includes CPAP therapy (home care company is [employer], mask fits, has humidity. gets mask/supplies prn). By report there is good compliance with treatment, good tolerance of treatment and good symptom control (better sleep , less arousals). Current symptoms do not include excessive daytime sleepiness or snoring. Encounter Diagnosis: ASTHMA (493.90), PABLITO ( OBSTRUCTIVE SLEEP APNEA) (327.23), OBESITY (278.00), GERD (GASTROESOPHAGEAL REFLUX DISEASE) (530.81), AR (ALLERGIC RHINITIS) (477.9), PULMONARY NODULE ( 518.89) Office Visit 04-Aug-2011 12:04 To 04-Aug-2011 13:12 Encounter Reason: Asthma, Follow-up - The last clinic visit was 3 month(s) ago. Management changes made at the last [facility] it include adding symbicort 160/4.5 and stopping advair (she does feel the change has been beneficial). Symptoms include shortness of breath (better, exertional, resolves with rest) and non-productive c ough, while symptoms do not include wheezing or chest tightness. The patient describes this as improving (from last visit). Symptoms are exacerbated by cold temperature and activity. Symptoms are reliev ed by rest (hasn't needed rescue since last visit). Associated symptoms do not include fever or upper respiratory infection symptoms. Current treatment includes inhaled albuterol, inhaled long-acting be ta-2 agonists, inhaled corticosteroids (symbicort 160/4.5) and leukotriene modifiers. Bronchodilator use is becoming less frequent. By report there is good compliance with treatment, good tolerance of t reatment and good symptom control. Denies recent hospitalizations. Feeling good., [ADDITIONAL REASON] Sleep follow up - The sleep disorder is characterized as obstructive sleep apnea . The last office visit was 3 month(s) ago. No changes in management were made at the last visit. The patient gets approximately 7 hours of sleep per night. Current treatment includes CPAP therapy (home care company is [employer], mask fits, has humidity. gets mask/supplies prn). By report there is good compliance with treatment, good tolerance of treatment and good symptom control (better sleep, less a rousals). Current symptoms do not include excessive daytime sleepiness or snoring. Encounter Diagnosis: ASTHMA (493.90), AR ( ALLERGIC RHINITIS) (477.9), GERD (GASTROESOPHAGEAL REFLUX DISEASE) (530.81), PABLITO (OBSTRUCTIVE SLEEP APNEA) (327.23), OBESITY (278.00) Historical Summary 03-Aug-2011 19:22 To 03-Aug-2011 19:23 [facility] Medication Order 09-Jul-2011 8:23 To 09-Jul-2011 8:26 Encounter Diagnosis: AR (ALLERGIC RHINITIS) ( 477.9) [facility] Office Visit 01-May-2011 10:18 To 01-May-2011 11:38 Encounter Reason: Sleep Follow Up PHP - The sleep disorder is characterized as obstructive sleep apnea. The last clinic [facility] visit was 6 month(s) ago. Management changes made at the last visit include adding medication (added heated humidity. dryness improved). The patient gets approximately 6 hours (10pm-4am; takes it off after up with nocturia) of sleep per night. Current treatment includes CPAP therapy (home care company is [employer]. new mask and supplies prn without issue) . By report there is good compliance with patria tment, good tolerance of treatment and good symptom control. Current symptoms do not include excessive daytime sleepiness, witnessed apnea during sleep, witnessed gasping during sleep, nocturnal choking or snoring. The patient describes this as improving (with CPAP). Associated symptoms include nocturia, while associated symptoms do not include morning headaches. Pertinent medical history includes obesity and asthma., [ADDITIONAL REASON] Asthma Follow Up PHP - Symptoms include dyspnea (with exertion, more often than at last visit. increased for the past 2-3 months. resolves with rest. has an albuterol inhaler; us ing 1x/day now. ), wheezing, cough, rescue inhaler, post nasal drip, chest tightness and activity limitations, while symptoms do not include mucous, nocturnal symptoms, prednisone, ER visit or infectio ns. The last clinic visit was 6 month(s) ago. No changes in management were made at the last visit. Current treatment includes inhaled albuterol, inhaled long-acting beta-2 agonists, inhaled corticoster oids and leukotriene modifiers. Pertinent medical history includes allergic rhinitis and gastroesophageal reflux, while pertinent medical history does not include hospitalization for asthma. The patient describes this as worsening. Symptoms are exacerbated by cold temperature and activity, while symptoms are not exacerbated by lying down. Symptoms are relieved by inhaler use and rest. Bronchodilator u se is becoming more frequent. By report there is good compliance with treatment , good tolerance of treatment and fair symptom control. Encounter Diagnosis: ASTHMA UNSPECIFIED (493.90 ), PABLITO (OBSTRUCTIVE SLEEP APNEA) (327.23), OBESITY (278.00), AR (ALLERGIC RHINITIS) (477.9), GERD (GASTROESOPHAGEAL REFLUX DISEASE) (530.81) Historical Summary 30-Apr-2011 11:48 To 30-Apr-2011 12:19 [facility] Payers [employer] [place] [address] [facility] [address] [place] Group Number: NONE tel: [employer] [employer] [place] [address] [address] [place] [address] [place] Group Number: [id number] tel: RICHIE HADDAD [address] [place] [id number] [place] tel:
--- OUTSIDE RECORDS SUMMARY | 2019-07-13 12:31 | XMS REPORT | Continuity of Care Document ---
:1935 External Reference #:[id number] Author Name Donte Mckinney (transmitted by agent of provider Yvette Cruz) Address [address] [place] [address] Problems Active Problems Provider Date Type 2 [...] Mckinney 02/14/2019 Lancets Miacalcin spray 1 spray Donte Mckinney 12/21/2018 200Unit/ML alternating nares Solution once daily Chlorthalidone 1 by mouth every 90tabs I11.9 Donte Mckinney 04/11/2018 25mg day take with Tablets glass of orange juice Hydrocortisone 1 1/2 by mouth 225tabs E27.49 [...] Acetonide nostril twice 55mcg/Act daily Aerosol Pen [place] 1/2" [facility] e11.65 [facility] Donte Mckinney 06/29/2017 29G X directed 3x a day 12mm Misc injections Diabetic Shoes With as directed hx Donte Mckinney 01/04/2017 Inserts foot surgeries edema feet and ankles. calluses on feet. Accu-Chek Beth Plus dx e11.65 test 4 300units Donte Mckinney 09/15/2016 times daily Strips Accu-Chek Beth Test Fout [facility] Alex Mckinneyl 09/15/2016 Device Daily DX E11.65 Syrings 3/16 Lenght 14 units in in the 100units Alex Mckinneyl 07/07/2016 By 31 Gauge morning dx e11.65 Wendy Allergy 1 PO qd prn 90tabs Alex Mckinneyl 05/05/2016 180mg Tablets Vitamin C Plus Faye Donte 05/05/2016 Echinacea 500-100mg Tablets Vitamin D3 High 1 by mouth every 90caps Alex Mckinneyl 05/05/2016 Potency day 1000Unit Capsules Meliza-Sequels Faye Donte 05/05/2016 65-25mg Tablets ER Calcium 500 + D Faye Donte 05/05/2016 400-132sn-Smyn Tablets Multivitamin Women Faye Donte 05/05/2016 50+ [...] 459.81 20-30 compression Walker with wheels and [facility] Donte Mckinney 02/14/2013 seat dx 781.2 Tylenol 8 Hour as needed 100tabs M15.0 Donte Mckinney 10/11/2012 650mg Tablets ER Fish Oil bid Donte Mckinney 11/25/2010 1200mg Capsules Lipitor 1/2 PO qd 90tabs Donte Mckinney 06/01/2005 20mg Tablets Singulair 1 by mouth every 90tabs Donte Mckinney 06/01/2005 10mg Tablets day Dulera 1 puff twice a day 3units Donte Mckinney 200-5mcg/Act Aerosol Azithromycin 1 tab on Wed Donte Mckinney 250mg and Fri Tablets Spiriva Respimat 2 puff daily J44.9 Unknown 2.5mcg/Act Aerosol Torsemide in by mouth daily Unknown 100mg Tablets Levalbuterol HCL four times a day J20.9 Unknown dx pneumonia 0.63mg/3ML Nebulizer History Medications Amoxicillin/Clavulanate [...] CPT Code Status Date Vaccine Lot # [id number] Given 05/16/2019 Pneumovax Polyvalent Inj Im Q2035 Given 03/21/2019 Influenza Virus (Quadrivalent)Splitvirus 3 Years Of Age And Older Q2035 Given 03/21/2019 Influenza Virus (Quadrivalent)Splitvirus 3 [id number] Years Of Age And Older 86025 Given 03/21/2019 Influenza Virus Vaccine, Quadrivalent, Split, Preservative Free Q2035 Given 04/11/2018 Influenza Virus (Quadrivalent)Splitvirus 3 [id number] Years Of Age And Older Q2036 Given 03/23/2017 Flulaval Q2035 Given 03/23/2017 Influenza Virus (Quadrivalent)Splitvirus 3 Years Of Age And Older Q2037 Given 04/07/2016 Influenza Vaccine (Fluvirin) 3 Years Of Age Or [id number] Older 53630 Given 05/21/2015 Pneumococcal Conjugate Vaccine 13 Valent For [id number] Intramuscular Use Q2035 Given 03/19/2015 Influenza Virus (Quadrivalent)Splitvirus 3 [id number] Years Of Age And Older Q2037 Given 03/13/2014 Influenza Vaccine (Fluvirin) 3 Years Of Age Or Older Q2038 Given 04/04/2013 Influenza Vaccine (Fluzone) Administered Age 3 And Older 25030 Given 04/04/2013 Influenza Vaccine [id number] Q2037 Given 04/26/2012 Influenza Vaccine (Fluvirin) 3 Years Of Age Or [id number] Older Q2036 Given 04/15/2011 Flulaval [id number] 41022 Given 06/30/2010 Zostavax [id number] 46124 Given 04/15/2010 Influenza Vaccine [id number] 81827 Given 12/13/2009 Pneumovax Polyvalent Inj Im [id number] 55881 Given 04/23/2009 Influenza Vaccine 98918 Given 04/23/2009 Influenza Vaccine [id number] 52213 Given 04/17/2008 Influenza Vaccine 82856 13625 Given 04/12/2007 Influenza Vaccine 65054 93566 Given 04/16/2006 Influenza Vaccine 78821 Given 04/16/2006 Influenza Vaccine 06700 41018 Given 05/05/2005 Influenza Vaccine [id number] 57654 Given 05/05/2005 Influenza Vaccine 70134 Given 01/11/2005 Tetanus And Diptheria Toxiods [id number] 05860 Given 12/30/2004 [place] [address] Given 07/19/1991 Tetanus And Diptheria Toxiods Vital Signs Date Vital Result Comment 06/12/2019 11:54am BP Systolic 148 mmHg BP Diastolic 90 mmHg Heart Rate 95 /min Respiratory Rate 22 /min Weight 180.00 lb 05/25/2019 11:25am BP Systolic 182 mmHg BP Diastolic 88 mmHg Heart Rate 100 /min Respiratory Rate 22 /min Weight 183.00 lb O2 % [facility] Oximetry 96 % Results Test Acquired Date Facility Test Result H/L Range Note General Health 05/15/2019 [facility] TSH 0.30 mIU/L Low 0.40-4.50 1 Panel [facility] [address] [place], [place] [id number] [phone] T4, Free 1.4 ng/dL Normal 0.8-1.8 CBC (Includes 05/15/2019 [facility] White 14.9 High 3.8-10.8 Diff/PLT) [address] Blood Cell Thousand/[place] [address] Count [phone] Red Blood Cell Count 3.48 Million/uL Low 3.80-5.10 Hemoglobin 10.3 g/dL Low 11.7-15.5 Hematocrit 30.4 % Low 35.0-45.0 MCV 87.4 fL Normal 80.0-100.0 MCH 29.6 pg Normal 27.0-33.0 MCHC 33.9 g/dL Normal 32.0-36.0 RDW 14.2 % Normal 11.0-15.0 Platelet Count 390 Thousand/uL Normal 140-400 MPV 9.2 fL Normal 7.5-12.5 Absolute Neutrophils 86374 cells/uL High 3199-0145 Absolute Lymphocytes 745 cells/uL Low 850-3900 Absolute Monocytes 313 cells/uL Normal 200-950 Absolute Eosinophils 0 cells/uL Low 15-500 Absolute Basophils 30 cells/uL Normal 0-200 Neutrophils 92.7 % High 38-80 Lymphocytes 5.0 % Low 15-49 Monocytes 2.1 % Normal 0-13 Eosinophils 0.0 % Normal 0-8 Basophils 0.2 % Normal 0-2 Comprehensive Metabolic 05/15/2019 [facility] Glucose 198 mg/dL High 65-139 2 Panel [address] [place] [address] [phone] Urea Nitrogen (BUN) 72 mg/dL High 7-25 Creatinine 1.83 mg/dL High 0.60-0.88 3 eGFR Non-Afr. Surinamese 25 mL/min/1.73m2 Low > Or = 60 [...] U/L High 6-29 Laboratory test 05/15/2019 [facility] Cortisone, Serum 0.8 g/dL 4 finding [address] [place] [address] [phone] Enhanced PDF Report [id number] SEE IMAGE CMP W/GFR 04/11/2019 [facility] Sodium 140 mmol/L 135-146 5 [address] [place], [place] [address] [phone] Potassium 3.7 mmol/L 3.5-5.3 Chloride 102 mmol/L [...] 1.9-3.7 A/G Ratio 1.5 1.0-2.5 Egfr Non-Afr. [place]amese 24 ML/MIN/1.73M2 Low > Or = 60 [...] 1.9-3.7 A/G Ratio 1.5 1.0-2.5 Egfr Non-Afr. Surinamese 24 ML/MIN/1.73M2 Low > Or = 60 Egfr 28 ML/MIN/1.73M2 Low > Or = 60 CBC W/ Diff & PLT 04/11/2019 [facility] WBC 11.3 thous/L High 3.8 -10.8 [address] [place], [place] [address] [phone] RBC 4.03 mill/L 3.80-5.10 Hemoglobin 11.6 g/dL Low 11.7-15.5 Hematocrit 35.3 % 35.0-45.0 MCV 87.6 FL 80.0-100.0 MCH 28.8 pg 27.0-33.0 MCHC 32.9 g/dL 32.0-36.0 RDW 14.3 % 11.0-15.0 Platelet Count 406 thous/L High 140-400 MPV 8.7 FL 7.5-12.5 Neutrophils,Absolute 6850 cells/L 3180-3308 Bands,Absolute PENDING Metamyelocytes,Absolute PENDING Myelocytes,Absolute PENDING Promyelocytes,Absolute [...] MPV 8.7 FL 7.5-12.5 Neutrophils,Absolute 6850 cells/L [phone] Lymphocytes,Absolute 3640 cells/L 850-3900 Monocytes,Absolute 630 cells/L 200-950 Eosinophils,Absolute 60 cells/L 15-500 Basophils,Absolute 60 cells/L 0-200 Total Neutrophils,% 61.2 % 40-75 Total Lymphocytes,% 32.2 % 12-47 Monocytes,% 5.6 % 4-12 Eosinophils,% 0.5 % 0-4 Basophils,% 0.5 % 0-1 13 Lipid Panel 04/11/2019 [facility] Cholesterol 173 mg/dL <199 [address] [place] [address] [phone] HDL Cholesterol 56 mg/dL >50 Cholesterol/HDL Ratio [...] <130 19 Laboratory test finding 04/11/2019 [facility] Cortisol,A.M. PENDING [address] [place], [place] [address] [phone] Vitamin D,25-Hydroxy,Total,Immunoassay 32 NG/ML 30-100 20 Hemoglobin A1c 6.6 % High 0-5.6 21 TSH & T4,Free 04/11/2019 [facility] TSH 0.31 mIU/L Low 0.40-4.50 22 [facility] [place], [place] [address] [phone] T4,Free 1.4 ng/dL 0.8-1.8 Laboratory test finding 04/11/2019 [facility] TSH 0.31 mIU/L Low 0.40-4.50 23 [address] [place] [address] [phone] T4,Free 1.4 ng/dL 0.8-1.8 Clinical PDF Report [id number] SEE IMAGE Hemoglobin A1c 6.6 % High [...] approximately 13% higher for people identified as -Surinamese. 4 Reference Range: AM: 1.2-3.5 PM: 0.6-2.8 This test was developed and its analytical performance characteristics have been determined by [facility]. It has not been cleared or approved by FDA. This assay has been validated pursuant to the CLIA regulations and is used for clinical purposes. 5 FASTING 6 Reference range for high altitude clients: 18-30 mmol/L 7 GLUCOSE REFERENCE RANGE BASED ON FASTING SPECIMEN. 8 The upper reference limit for Creatinine is approximately 13% higher for people identified as -Surinamese. 9 Reference range for high altitude clients: 18-30 mmol/L 10 GLUCOSE REFERENCE RANGE BASED ON FASTING SPECIMEN. 11 The upper reference limit for Creatinine is approximately 13% higher for people identified as -Surinamese. 12 Relative blood cell counts (%) should [...] the estimation of LDL-C. Danny SS et al.MARIAELENA.2013;310(19):4780-8542 Desirable range <100 mg/dL for primary prevention; [...] the estimation of LDL-C. Danny SS et al.MARIAELENA.2013;310(19):8142-1554 Desirable range <100 mg/dL for primary prevention; [...] Vit D, (D2,D3),LC/MS/MS is recommended: Order code 40950 (patients >2 yrs). 21 For someone without [...] Vit D, (D2,D3),LC/MS/MS is recommended: Order code 18809 (patients >2 yrs). 27 REFERENCE RANGE AM: 1-3 DAYS OLD: PREMATURE INFANTS (31-35 WEEKS): < OR = 15.0 MCG/DL TERM INFANTS: < OR = 14.0 MCG/DL 4 DAYS-1 MONTH: NOT ESTABLISHED 1 MONTH-11 MONTHS: 3.0-23.0 MCG/DL 1 YEAR-17 YEARS: 3.0-25.0 MCG/DL 18 YEARS OR OLDER: 4.0-22.0 MCG/DL Procedures Date Code Description Status 05/30/2019 27155 Therapeutic,Prophylactic Intramuscular Inj Completed 04/18/2019 42912 Therapeutic,Prophylactic Intramuscular Inj Completed 04/18/2019 42073 Non-Invcorrotid/Comp /Bilat Study Completed 04/17/2019 74756 Echocardiography Completed 04/11/2019 05542 Spirometry Graphic Record/Max Voluntary Vent Completed 04/11/2019 33403 EKG-Tracing & Report Completed 04/10/2019 03941 EKG-Tracing & Report Completed 04/04/2019 94034 Therapeutic,Prophylactic Intramuscular Inj Completed 03/21/2019 37208 Therapeutic,Prophylactic Intramuscular Inj Completed 02/07/2019 37727 Therapeutic,Prophylactic Intramuscular Inj Completed 01/24/2019 42045 Therapeutic,Prophylactic Intramuscular Inj Completed 01/10/2019 32093 Therapeutic,Prophylactic Intramuscular Inj Completed 12/27/2018 27369 Therapeutic,Prophylactic Intramuscular Inj Completed 12/15/2018 95389 Therapeutic,Prophylactic Intramuscular Inj Completed 03/11/2017 820954735 Bone Mineral Density Test Completed 07/22/2015 [id number] Mammogram Completed 05/13/2007 82740117 Colonoscopy Completed Medical Devices Description No Information [...] deficiency, unspecified Assessments Date Code Description Provider 05/30/2019 T78.40xD Allergy, unspecified, subsequent encounter Donte Mckinney 05/25/2019 R06.02 Shortness of breath Donte Mckinney 05/25/2019 J44.1 Chronic obstructive pulmonary disease with (acute) Donte Mckinney exacerbation 05/25/2019 I65.23 Occlusion and stenosis of bilateral carotid arteries Gauss , [facility] 05/25/2019 T78.40xD Allergy, unspecified, subsequent encounter [facility], [facility] 05/25/2019 E78.5 Hyperlipidemia, unspecified Gauss, [facility] 05/25/2019 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 Gauss, [facility] 05/25/2019 E66.09 Other obesity due to excess calories [facility], [facility] 05/25/2019 I11.9 Hypertensive heart disease without heart failure Gauss, [facility] 05/25/2019 E11.65 Type 2 diabetes mellitus with hyperglycemia Meuss, [facility] 05/25/2019 E03.9 Hypothyroidism, unspecified Gauss, [facility] 05/25/2019 J40 Bronchitis, not specified as acute or chronic [facility], [facility] 05/25/2019 J45.30 Mild persistent asthma, uncomplicated [facility], [facility] 05/16/2019 T78.40xD Allergy, unspecified, subsequent encounter [facility] 05/15/2019 J44.1 Chronic obstructive pulmonary disease with (acute) [facility], [facility] exacerbation 05/15/2019 T78.40xD Allergy, unspecified, subsequent encounter [facility], [facility] 05/15/2019 I65.23 Occlusion and stenosis of bilateral carotid arteries Gauss , [facility] 05/15/2019 E78.2 Mixed hyperlipidemia [facility], [facility] 05/15/2019 R06.02 Shortness of breath [facility], [facility] 05/15/2019 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 Meuss, [facility] 05/15/2019 E66.09 Other obesity due to excess calories Gauss, [facility] 05/15/2019 I11.9 Hypertensive heart disease without heart failure Gauss, [facility] 04/24/2019 R26.89 Other abnormalities of gait and mobility Gauss, [facility] 04/24/2019 T78.40xD Allergy, unspecified, subsequent encounter [facility], [facility] 04/24/2019 I65.23 Occlusion and stenosis of bilateral carotid arteries Meuss , [facility] 04/24/2019 I34.0 Nonrheumatic mitral (valve) insufficiency Gauss, [facility] 04/24/2019 E78.2 Mixed hyperlipidemia Gauss, [facility] 04/24/2019 R06.02 Shortness of breath Meuss, [facility] 04/24/2019 J44.9 Chronic obstructive pulmonary disease, unspecified Gauss, [facility] 04/24/2019 J44.1 Chronic obstructive pulmonary disease with (acute) Gataylor, Donte exacerbation 04/18/2019 T78.40xD Allergy, unspecified, subsequent encounter [facility], [facility] 04/18/2019 I65.23 Occlusion and stenosis of bilateral carotid arteries Meuss , [facility] 04/17/2019 I34.0 Nonrheumatic mitral (valve) insufficiency Gauss, [facility] 04/11/2019 E78.2 Mixed hyperlipidemia Gauss, [facility] 04/11/2019 R06.02 Shortness of breath Meuss, [facility] 04/11/2019 J44.9 Chronic obstructive pulmonary disease, unspecified Gauss, [facility] 04/11/2019 R05 Cough Gauss, [facility] 04/10/2019 E78.2 Mixed hyperlipidemia Gauss, [facility] 04/04/2019 T78.40xD Allergy, unspecified, subsequent encounter [facility], [facility] 03/21/2019 Z23 [facility]counter [facility], [facility] 03/21/2019 T78.40xD Allergy, unspecified, subsequent encounter [facility], [facility] 02/21/2019 E11.65 Type 2 diabetes mellitus with hyperglycemia [facility] 02/14/2019 R42 Dizziness and giddiness [facility], [facility] 02/14/2019 T78.40xD Allergy, unspecified, subsequent encounter [facility], [facility] 02/14/2019 E11.65 Type 2 diabetes mellitus with hyperglycemia [facility], [facility] 02/14/2019 E03.9 Hypothyroidism, unspecified Gauss, [facility] 02/14/2019 J44.9 Chronic obstructive pulmonary disease, unspecified Gauss, [facility] 02/14/2019 J40 Bronchitis, not specified as acute or chronic [facility], [facility] 02/14/2019 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23 Occlusion and stenosis of bilateral carotid arteries Gauss , Donte 02/14/2019 R26.89 Other abnormalities of gait and mobility Gauss, Donte 02/07/2019 T78.40xD Allergy, unspecified, subsequent encounter Gauss, Donte 01/24/2019 T78.40xD Allergy, unspecified, subsequent encounter Gauss, Donte 01/17/2019 E11.65 Type 2 diabetes mellitus with hyperglycemia Gauss, Donte 01/17/2019 E03.9 Hypothyroidism, unspecified Gauss, Donte 01/17/2019 T78.40xD Allergy, unspecified, subsequent encounter Gauss, [...] 2 diabetes mellitus with hyperglycemia Gauss, Donte 12/20/2018 E03.9 Hypothyroidism, unspecified Gauss, Donte 12/20/2018 J44.9 Chronic obstructive pulmonary disease, unspecified Gauss, Donte 12/20/2018 J40 Bronchitis, not specified as acute or chronic Gauss, Donte 12/20/2018 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 Gauss, Donte 12/20/2018 E66.09 Other obesity due to excess calories Gauss, Donte 12/20/2018 I11.9 Hypertensive heart disease without heart failure Gauss, Donte 12/20/2018 E78.5 Hyperlipidemia, unspecified Gauss, Donte 12/20/2018 J44.1 Chronic obstructive pulmonary disease with (acute) Alex Mckinneyl exacerbation 12/20/2018 R06.02 Shortness of breath Donte Mckinney 12/20/2018 I34.0 Nonrheumatic mitral (valve) insufficiency Faye Donte 12/20/2018 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 Faye Donte 12/20/2018 E55.9 Vitamin D deficiency, unspecified Faye Donte 12/15/2018 T78.40xD Allergy, unspecified, subsequent encounter Donte Mckinney Plan of Treatment Future Appointment(s):06/13/2019 9:30 am - Nurse at Main [id number]/19/2019 10: 30 am - Donte Mckinney at Main Office Functional Status Description No Information Available Mental Status Description No Information Available Referrals Refer to Reason for Referral Status Appt Date Created Servando Disla MD Created [address] [place] [address] [phone] Denver Hudson MD Created [address] [place] [address] [phone] Marcello Lino M.D. [facility] Closed 02/27/[address] [place] [address] [phone] Servando Disla MD Closed [facility] [place] [id number] [phone]
--- OUTSIDE RECORDS SUMMARY | 2019-07-13 12:31 | XMS REPORT | Continuity of Care Document ---
:1935 Author Name Dance Professor, System Address Unavailable Unavailable , Care Team Providers Name Role Phone Faye DUFFY, Donte Unavailable Denver Hudson DO Unavailable NATALYA DUFFY, LASHAY Lugo Unavailable Antonia DUFFY, Saul Brady Unavailable Ranulfo DUFFY, Maryann Unavailable HOACSHAZIA, Hematology DIrect Address Unavailable Unavailable LawEdmundo M Unavailable Floyd DUFFY, Amisha Caldwell Unavailable Tasha DPM, Main Unavailable Davin COMMUNITY EDUCATION COORDINATOR, Yvette Unavailable Unavailable Marlyn MSN, NPC, Gregoria Unavailable Margo COMMUNITY EDUCATION COORDINATOR, Yael Unavailable Unavailable Loveless COMMUNITY EDUCATION COORDINATOR, Ally Unavailable Unavailable Krystina LRT, Guero Unavailable Unavailable Michael COMMUNITY EDUCATION COORDINATOR, Pancho Unavailable Unavailable Reginald FEEDMOBILE DRIVER, Reji Unavailable Unavailable Cristopher COMMUNITY EDUCATION COORDINATOR, December Unavailable Unavailable Taylor COMMUNITY EDUCATION COORDINATOR, Briseida Unavailable Unavailable More LRT, Tera Unavailable Unavailable Beryannein COMMUNITY EDUCATION COORDINATOR, Kobe Unavailable Unavailable Elizabeth Msn Npc, Mela A Unavailable Matti DUFFY, Dr. Guero Melo Unavailable Hilary MSN NPC, Sia Unavailable Nav LRT, Piper Unavailable Unavailable Unavailable Unavailable Problems [...] Hudson PULMONARY NODULE (R91.1) (793.11) DO Denver Hudson Comments: RML/LLL; stable CT chest 12/10/2004-12/20/2006 THYROIDITIS [...] Tablet; 1 daily (10 MG) CALCIUM-VITAMIN D, 380-307GT-ABUR (Oral Tablet); three times daily (250-125 MG-UNIT) Chlorthalidone 25 MG Oral Tablet; 1 daily (25 MG) CloNIDine HCl 0.1 MG Oral Tablet; 1 three times daily (0.1 MG) CPAP ( Device) (Free Text); +8 Comments: [facility] cm at bedtime Doxycycline Hyclate 100 MG Oral Capsule; 1 (one) Capsule two times daily for 10 days Ordered: 12-Jun-2019 Start: 12-Jun-2019 Quantity: 20 {Capsule} ALEXIA Cline NPC Jillian Refills: 0 Dulera 200-5 MCG/ACT Inhalation Aerosol; 2 (two) Puff two times daily for 30 days Ordered: 08-Jun-2016 Start: 08-Jun-2016 Quantity: 1 {Inhalation} ALEXIA Cline NPC Jillian Comments: dose change Refills: 11 Dulera 200-5 MCG/ACT Inhalation Aerosol; 2 (two) Puff two times daily for 90 days Ordered: 08-Jun-2016 Start: 08-Jun-2016 Quantity: 3 {Inhalation} ALEXIA Cline NPC Jillian Refills: 3 ENALAPRIL MALEATE, 10MG (Oral Tablet); [...] Capsule); daily (1000 UNIT) ADVAIR DISKUS, 250-50MCG/DOSE (Inhalation Aerosol Powder Breath Activated); 1 Puff(s) two times daily for 0 days Ordered: 02-Mar-2013 Start: 07-Oct-2012 End : 02-Mar-2013 Quantity: 1 {Inhaler(s)} PURA Woods Status: Inactive Refills: 5 ADVAIR DISKUS, 250-50MCG/DOSE Status: Inactive (Inhalation Aerosol Powder Breath Activated); two times daily (250-50 MCG/DOSE) Albuterol Sulfate (2.5 MG/3ML) 0.083% Inhalation Nebulization [...] End: 30-Apr-2019 Quantity: 20 {Tablet} ALEXIA Cline, KANE Kinney Status: Inactive Refills: 0 Cipro 500 MG Oral Tablet; 1 (one) Tablet two times daily for 10 days Ordered : 28-Apr-2019 Start: 28-Apr-2019 End: 08-May-2019 Quantity: 20 {Tablet} ALEXIA Cline, KANE Kinney Status: Inactive Refills: 0 CPAP SUPPLIES ( Device) (Free Text); 1 Device UAD for 1 days Ordered: 2010 Start: 01-May-2011 End: 02-May-2011 Refills: 0 ALEXIA Cline, KANE Kinney Status: Inactive Comments: cpap mask and supplies; bagmachine checkdx: 327.23 DILTIAZEM HCL ER BEADS, 360MG Status: Inactive (Oral Capsule Extended Release 24 Hour); daily (360 MG) HUMALOG, 100UNIT/ML Status: Inactive (Subcutaneous Solution); UAD [...] 04-May-2019 Quantity: 12 {Tablet} ALEXIA Cline, KANE Kinney Status: Inactive Refills: 0 Comments: 30mg po x 2 days, [id number] po x 2 days [id number] po x 2 days, then stop Qvar [...] Inactive Tablet); three times daily (50 MG) TRAMADOL HCL, 50MG (Oral Status: Inactive Tablet); as needed (50 MG) Comments: Medication taken as needed. TRAMADOL-ACETAMINOPHEN, Status: Inactive 37.5-325MG (Oral Tablet); as Comments: Medication taken as needed. needed (37.5-325 MG) Triamcinolone Acetonide 55 MCG/ACT Nasal Aerosol; 2 (two) Aerosol Soln daily for 30 days Ordered: 01-Aug-2018 Start: 22-Mar-2015 End: 01-Aug-2018 Quantity: 60 {Aerosol_Soln} ALEXIA Cline, KANE Kinney Status: Inactive Refills: 11 Comments: 2 sprays [...] EXHALED NITRIC OXIDE MEASUREMENT Status: Completed 05-Jun-2019 (05102) EXHALED NITRIC OXIDE MEASUREMENT Date: 01-Aug-2018 Status: Completed 2018 (61613) AIRFLOW RESISTANCE MEASUREMENT: Status: Completed 17-Nov-2018 PULM FUNCT TEST OSCILLOMETRY (19566) THORACIC GAS VOLUME: AIRWAY Status: Completed 17-Nov-2018 CLOSING VOLUME MEASUREMENT: PULM FUNCTION TEST BY GAS (41765) TOTAL VITAL CAPACITY (37452) Status: Completed 17-Nov-2018 MEASUREMENT OF NITRIC Status: Completed 17-Nov-2018 OXIDE (91206) MEASUREMENT OF NITRIC Status: Completed 08-Jun-2018 OXIDE (43007) RESPIRATORY FLOW VOLUME LOOP Status: Completed 08-Jun-2018 (71860) TOTAL VITAL CAPACITY (70793) Status: Completed 16-Feb-2018 TOTAL BODY PLETHYSMOGRAPHY: Status: Completed 16-Feb-2018 AIRFLOW RESISTANCE MEASUREMENT (03162) THORACIC GAS VOLUME: AIRWAY Status: Completed 16-Feb-2018 CLOSING VOLUME MEASUREMENT: PULM FUNCTION TEST BY GAS (19801) RESPIRATORY FLOW VOLUME LOOP Status: Completed 16-Feb-2018 (57514) DLCO (CARBON MONOXIDE DIFFUSING Status: Completed 16-Feb-2018 CAPACITY) (96701) AIRFLOW RESISTANCE MEASUREMENT: Status: Completed 16-Feb-2018 PULM FUNCT TEST OSCILLOMETRY (22664) PRE AND POST (22017) Status: Completed 16-Feb-2018 RESPIRATORY FLOW VOLUME LOOP Status: Completed 17-Nov-2017 (90524) TOTAL VITAL CAPACITY (73514) Status: Completed 26-Feb-2017 TOTAL BODY PLETHYSMOGRAPHY (72972) Status: Completed 26-Feb-2017 TGV THORACIC GAS VOLUME: AIRWAY Status: Completed 26-Feb-2017 CLOSING VOLUME MEASUREMENT: PULM FUNCTION TEST BY GAS (32536) RESPIRATORY FLOW VOLUME LOOP Status: Completed 26-Feb-2017 (06022) DLCO (CARBON MONOXIDE DIFFUSING Status: Completed 26-Feb-2017 CAPACITY) (48354) AIRFLOW RESISTANCE MEASUREMENT: Status: Completed 26-Feb-2017 PULM FUNCT TEST OSCILLOMETRY (04145) PRE AND POST (18549) Status: Completed 26-Feb-2017 RESPIRATORY FLOW VOLUME LOOP Status: Completed 09-Sep-2016 (06795) PRE AND POST (83132) Status: Completed 09-Sep-2016 TOTAL VITAL CAPACITY (22668) Status: Completed 17-Apr-2016 TOTAL BODY PLETHYSMOGRAPHY (23387) Status: Completed 17-Apr-2016 TGV THORACIC GAS VOLUME: AIRWAY Status: Completed 17-Apr-2016 CLOSING VOLUME MEASUREMENT: PULM FUNCTION TEST BY GAS (99897) RESPIRATORY FLOW VOLUME LOOP Status: Completed 17-Apr-2016 (22858) DLCO (CARBON MONOXIDE DIFFUSING Status: Completed 17-Apr-2016 CAPACITY) (78415) AIRFLOW RESISTANCE MEASUREMENT: Status: Completed 17-Apr-2016 PULM FUNCT TEST OSCILLOMETRY (19293) PRE AND POST (30653) Status: Completed 17-Apr-2016 RESPIRATORY FLOW VOLUME LOOP Status: Completed 26-Nov-2015 (32139) TOTAL VITAL CAPACITY (94078) Status: Completed 26-Aug-2015 TOTAL BODY PLETHYSMOGRAPHY (19967) Status: Completed 26-Aug-2015 TGV THORACIC GAS VOLUME: AIRWAY Status: Completed 26-Aug-2015 CLOSING VOLUME MEASUREMENT: PULM FUNCTION TEST BY GAS (90567) RESPIRATORY FLOW VOLUME LOOP Status: Completed 26-Aug-2015 (21847) DLCO (CARBON MONOXIDE DIFFUSING Status: Completed 26-Aug-2015 CAPACITY) (19853) AIRFLOW RESISTANCE MEASUREMENT: Status: Completed 26-Aug-2015 PULM FUNCT TEST OSCILLOMETRY (48503) PRE AND POST (36380) Status: Completed 26-Aug-2015 AIRFLOW RESISTANCE MEASUREMENT: Status: Completed 19-Apr-2015 PULM FUNCT TEST OSCILLOMETRY (82367) TOTAL VITAL CAPACITY (91508) Status: Completed 19-Apr-2015 TOTAL BODY PLETHYSMOGRAPHY: AIRWAY Status: Completed 19-Apr-2015 CLOSING VOLUME MEASUREMENT: PULM FUNCT TST PLETHYSMOGRAP (24175) RESPIRATORY FLOW VOLUME LOOP Status: Completed 19-Apr-2015 (07094) THORACIC GAS VOLUME: AIRWAY Status: Completed 19-Apr-2015 CLOSING VOLUME MEASUREMENT: PULM FUNCTION TEST BY GAS (05491) DLCO (CARBON MONOXIDE DIFFUSING Status: Completed 19-Apr-2015 CAPACITY) (64993) PRE AND POST (52927) Status: Completed 19-Apr-2015 RESPIRATORY FLOW VOLUME LOOP Status: Completed 02-Aug-2014 (67825) PRE AND POST (54815) Status: Completed 02-Aug-2014 RESPIRATORY FLOW VOLUME LOOP Status: Completed 21-Mar-2014 (43926) PRE AND POST (46225) Status: Completed 21-Mar-2014 MEDICARE RX CODE: AT LEAST ONE Status: Completed 29-May-2013 PRESCRIPTION CREATED DURING THE ENCOUNTER WAS GENERATED AND TRANSMITTED ELECTRONICALLY USING A QUALIFIED ERX SYSTEM (G8553) RESPIRATORY FLOW VOLUME LOOP Status: Completed 10-Apr-2013 (91245) PRE AND POST (20550) Status: Completed 10-Apr-2013 RESPIRATORY FLOW VOLUME LOOP Status: Completed 02-Mar-2013 (23013) SPIROMETRY WITH BRONCHODILATOR Status: Completed 02-Mar-2013 (81881) MEDICARE RX CODE: AT LEAST ONE Status: Completed 07-Oct-2012 PRESCRIPTION CREATED DURING THE ENCOUNTER WAS GENERATED AND TRANSMITTED ELECTRONICALLY USING A QUALIFIED ERX SYSTEM (G8553) REST/EXERCISE OXIMETRY (94743) Status: Completed 07-Oct-2012 RESPIRATORY FLOW VOLUME LOOP Status: Completed 07-Oct-2012 (65005) PRE AND POST W/ RT (50040) Status: Completed 07-Oct-2012 ACT Status: Completed 03-Feb-2011 [...] pleural scar in RML PRE AND POST (18103)Result: Hemoptysis: No Status: Completed 17-Nov-2018 CAT SCAN OF CHEST: CT THORAX W/O DYE (51268)Result: Status: Completed 2018 Are you or could you become ?: No; When was you last CXR/CT?: over week ago; Crystal Grower: JUAN Booth PRE AND POST (77177)Result: Hemoptysis: No Status: Completed 01-Aug-2018 PRE AND POST (55192)Result: Hemoptysis: No Status: Completed 08-Jun-2018 CAT SCAN OF CHEST: CT THORAX W/O DYE (02043)Result: Status: Completed 2017 Are you or could you become ?: No; When was you last CXR/CT?: over a week ago; Crystal Grower: JUAN Hurtado PRE AND POST (83237)Result: Hemoptysis: No Status: Completed 17-Nov-2017 CHEST X-RAY, PA AND LATERAL (03472)Result: Are you Status: Completed 2016 or could you become ?: No; When was you last CXR/CT?: over week ago; Crystal Grower: Tera Bundy, LRT CHEST X-RAY, PA AND LATERAL (16630)Result: Are you Date: 30-Nov-2016 or could you become ?: No; When was Status: Completed 2016 you last CXR/CT?: over week ago; Crystal Grower: Tera Bundy, LRT CHEST X-RAY, PA AND LATERAL (73193)Result: Are you Date: 30-Nov-2016 or could you become ?: No; When was Status: Completed 2016 you last CXR/CT?: over week ago; Crystal Grower: Comments: [facility] at [facility] Tera Bundy, LRT CHEST X-RAY, PA AND LATERAL (74621)Result: Are you Status: Completed 2016 or could you become ?: No; When was you last CXR/CT?: OVER WEEK AGO; Crystal Grower: Tera Bundy, LRT CT THORAX W/O DYE (76590)Result: Are you or Status: Completed could you become ?: No; When was you last CXR/CT?: over week ago; Crystal Grower: Tera Bundy, LRT CT THORAX W/O DYE (33270)Result: Are you or Status: Completed could you become ?: No; When was you last CXR/CT?: OVER WEEK AGO; Crystal Grower: Tera Bundy, LRT CHEST X-RAY, PA AND LATERAL (90917)Result: Are you Status: Completed 2015 or could you become ?: No; When was you last CXR/CT?: over week ago; Crystal Grower: Tera Bundy LRT PRE AND POST (33517)Result: Hemoptysis: No Status: Completed 26-Nov-2015 CT THORAX W/O DYE (39515)Result: Are you or Status: Completed 2015 could you become ?: No; When was you last CXR/CT?: over a week ago; Crystal Grower: Tera Bundy, LRT CAT SCAN OF CHEST: CT THORAX W/O DYE (21564)Result: Status: Completed 2014 Are you or could you become ?: No; When was you last CXR/CT?: over a week ago; Crystal Grower: Tera Bundy, LRT CAT SCAN OF CHEST: CT THORAX W/O DYE (54126)Result: Status: Completed 2014 Are you or could you become ?: No; When was you last CXR/CT?: 2014; Crystal Grower: Guero Flaherty, LRT CAT SCAN OF CHEST: CT THORAX W/O DYE (50984)Result: Status: Completed 2014 Are you or could you become ?: No; When was you last CXR/CT?: OVER 1 WEEK AGO; Crystal Grower: Tera Bundy, LRT CT THORAX W/O DYE (66345)Result: Are you or Status: Completed could you become ?: No; When was you last CXR/CT?: 04/01; Crystal Grower: Guero Flaherty, LRT CHEST X-RAY, PA AND LATERAL (27941)Result: Are you Status: Completed 2013 or could you become ?: No; When was you last CXR/CT?: over 2 months ago; Crystal Grower: Tera Bundy, LRT CT THORAX W/O DYE (56927)Result: Are you or Status: Completed 2013 could you become ?: No; When was you last CXR/CT?: last month; Crystal Grower: Tera Bundy, LRT CT THORAX W/O DYE (78294)Result: Are you or Date: 21-Nov-2013 could you become ?: No; When was you last Status: Completed 2013 CXR/CT?: last month; Crystal Grower: Guero Flaherty, LRT CAT SCAN OF CHEST: CT THORAX W/O DYE (50129)Result: Status: Completed 2012 Are you or could you become ?: No; Crystal Grower: Rosalinda Rodriguez LPN CT THORAX W/O DYE (43792)Result: Are you or Status: Completed 2012 could you become ?: No; Crystal Grower: JUAN Booth ACT: ASSESSMENT OF DISEASE: ASTHMA [...] Score: 17 CHEST X-RAY, PA AND LATERAL (80772)Result: Are you Status: Completed 2012 or could you become ?: No; Crystal Grower: JUAN Booth Asthma Control Test (ACT)Result: [Questions] [...] Score] Score: 19 RESPIRATORY FLOW VOLUME LOOP (92605)Result: Date: 04-Aug-2011 Hemoptysis: No; Medication Used: Albuterol 0.083% kendell aerosol; Respiratory Equipment Assistant: Reji Montelongo RRT RESPIRATORY FLOW VOLUME LOOP (50837)Result: Date: 01-May-2011 Hemoptysis: No; Medication Used: Albuterol 0.083% kendell aerosol; Respiratory Equipment Assistant: Yael Aragon LPN Immunizations Influenza (3 years [...] Skin Test, Intradermal On: 03-Mar-2013 Lot #: [id number] Family History Allergic Rhinitis Status: Active Comments: Father. Emphysema Status: Active Comments: Father. Social History Alcohol use: Occasional alcohol use. Current work status: Retired. Marital status: . No caffeine use No drug use Tobacco use: Never smoker. Never smoker Female Plan of Treatment CAT SCAN OF CHEST: CT THORAX W/O DYE Start: 05-Jul-2019 Intent (11298) REST OXIMETRY (94141) Start: 05-Jun-2019 Intent SIMPLE PFT: BASELINE PULMONARY Start: 05-Jun-2019 Intent FUNCTION TEST (PFT) (32596) REST OXIMETRY (11435) Start: 17-Nov-2018 Intent CONTINUOUS OVERNIGHT OXIMETRY Start: 08-Jun-2018 Intent (20991) Comments: on cpap REST OXIMETRY (24280) Start: 16-Feb-2018 Intent EXHALED NITRIC OXIDE MEASUREMENT Start: 17-Nov-2017 Intent (94108) Comments: Evaluated patient's nitric oxide. The results were 16 ppb RESPIRATORY FLOW VOLUME LOOP (88648) Start: 30-Nov-2016 Intent SIMPLE PFT: BASELINE PULMONARY Start: 30-Nov-2016 Intent FUNCTION TEST (PFT) (28784) REST OXIMETRY (72262) Start: 09-Sep-2016 Intent REST OXIMETRY (81502) Start: 26-Nov-2015 Intent REST OXIMETRY (84728) Start: 19-Apr-2015 Intent RESPIRATORY FLOW VOLUME LOOP (06282) Start: 11-Oct-2014 Intent PRE AND POST (01309) Start: 11-Oct-2014 Intent REST/ EXERCISE OXIMETRY (69697) Start: 21-Nov-2013 Intent TOTAL VITAL CAPACITY (90638) Start: 21-Nov-2013 Intent TOTAL BODY PLETHYSMOGRAPHY (26737) Start: 21-Nov-2013 Intent TGV THORACIC GAS VOLUME: AIRWAY Start: 21-Nov-2013 Intent CLOSING VOLUME MEASUREMENT: PULM FUNCTION TEST BY GAS (51276) RESPIRATORY FLOW VOLUME LOOP (12270) Start: 21-Nov-2013 Intent DLCO (CARBON MONOXIDE DIFFUSING Start: 21-Nov-2013 Intent CAPACITY) (30309) AIRFLOW RESISTANCE MEASUREMENT: PULM Start: 21-Nov-2013 Intent FUNCT TEST OSCILLOMETRY (48453) PRE AND POST (73643) Start: 21-Nov-2013 Intent REST OXIMETRY (39888) Start: 06-Jul-2013 Intent RESPIRATORY FLOW VOLUME LOOP (27398) Start: 06-Jul-2013 Intent PRE AND POST (75245) Start: 06-Jul-2013 Intent BRONCHOSCOPY IN ENDO (55700) Start: 12-May-2013 Intent REST/ EXERCISE OXIMETRY (96898) Start: 02-Mar-2013 Intent ACT: ASSESSMENT OF DISEASE: ASTHMA Start: 02-Mar-2013 Intent SYMPTOMS EVALUATE (1005F) REST/EXERCISE OXIMETRY (43322) Start: 08-Aug-2012 Intent RESPIRATORY FLOW VOLUME LOOP (10766) Start: 08-Aug-2012 Intent PRE/POST (18403) Start: 08-Aug-2012 Intent RESPIRATORY FLOW VOLUME LOOP (83063) Start: 04-Feb-2012 Intent EXERCISE OXIMETRY (36318) Start: 04-Feb-2012 Intent REST OXIMETRY (07402) Start: 04-Feb-2012 Intent PRE/POST (73319) Start: 04-Feb-2012 Intent PRE/POST W/ RT (27432) Start: 04-Aug-2011 Intent REST OXIMETRY (15470) Start: 04-Aug-2011 Intent EXERCISE OXIMETRY (00911) Start: 04-Aug-2011 Intent Pre/Post (50360) Start: 01-May-2011 [address] Medical; CT SCAN CHEST - Start: 01-Aug-2019 13:00 [facility]ointment [facility]; FULL PFT 30 - R/O, FeNo Start: 01-Aug-2019 13:15 Appointment Request [facility]; FOLLOW UP 15 - Fu 15, Full, FeNo, R/O, CT Start: 01-Aug-2019 14:15 Appointment [facility] DO Denver Hudson [employer] (55417) Start: 05-Jun-2019 12:32 Request SPUTUM CULTURE (39898) Start: 05-Jun-2019 12:32 Request SPUTUM CULTURE (03735) Start: 20-Apr-2019 10:48 Request BUN (BLOOD UREA NITROGEN) (72844) Start: 16-Aug-2018 10:40 Request CREATININE BLOOD (47472) Start: 16-Aug-2018 10:40 Request SPUTUM CULTURE (73146) Start: 11-Aug-2018 11:01 Request SPUTUM CULTURE (72032) Start: 29-Jul-2018 10:01 Request CANDACE SCREEN (75139) Start: 17-Nov-2017 14:20 Request RHEUMATOID FACTOR-QUANT (71431) Start: 17-Nov-2017 14:20 Request SED RATE ERYTHROCYTE (34471) Start: 17-Nov-2017 14:20 Request Comments: ICD 279.49 RHEUMATOID FACTOR-QUANT (22225) Start: 17-Nov-2017 14:19 Request CKRHJ-3-ZFPIGZJUJLV-TOTAL (29596) Start: 17-Nov-2017 14:19 Request WMGLD-9-MMZVBBJIQRH-PHEN (86451) Start: 17-Nov-2017 14:19 Request QUANTATATIVE IMMUNOGLOBULINS (54971) Start: 17-Nov-2017 14:15 Request IMMUNOGLOBULIN E (IgE) (24903) Start: 17-Nov-2017 14:15 Request CBC, PLATELETS & AUT DIFF (56816) Start: 17-Nov-2017 14:15 Request SPUTUM CULTURE (14594) Start: 03-May-2017 14:34 Request CBC, PLATELETS & AUT DIFF (67529) Start: 26-Feb-2017 10:15 Request QUANTATATIVE IMMUNOGLOBULINS (10629) Start: 26-Feb-2017 10:15 Request IMMUNOGLOBULIN E (IgE) (25126) Start: 26-Feb-2017 10:15 Request ASTHMA (Renamed from [...] PSEUDOMONAS : Start flutter device- faxed to [place] Indication:BACTERIAL INFECTION DUE TO PSEUDOMONAS ASTHMA (Renamed from AIRWAY HYPERREACTIVITY) : Continue with Spiriva with 2.5mcg samples to replace low dose for a trial Indication:ASTHMA (Renamed from AIRWAY HYPERREACTIVITY) OBSTRUCTIVE SLEEP APNEA : Change to auto titrating CPAP- faxed to [place] already Indication:OBSTRUCTIVE SLEEP APNEA ASTHMA (Renamed from [...] ABNORMAL FINDING ON LUNG IMAGING : SINAN EVANS Indication:ABNORMAL FINDING ON LUNG IMAGING BACTERIAL INFECTION DUE TO PSEUDOMONAS : Continue VJ Indication:BACTERIAL INFECTION DUE TO PSEUDOMONAS ASTHMA (Renamed from AIRWAY HYPERREACTIVITY) : FU EITHER - Tristan patient with Tristan in office Indication:ASTHMA (Renamed from AIRWAY HYPERREACTIVITY) ASTHMA (Renamed from AIRWAY HYPERREACTIVITY) : Keep upcoming appt as scheduled Indication:ASTHMA (Renamed from AIRWAY HYPERREACTIVITY) ASTHMA (Renamed from AIRWAY HYPERREACTIVITY) : FU EITHER - Tristan patient Indication:ASTHMA (Renamed from [...] NODULE ASTHMA (Renamed from AIRWAY HYPERREACTIVITY) : FU EITHER - Tristan patient Indication:ASTHMA (Renamed from AIRWAY HYPERREACTIVITY) ASTHMA (Renamed from AIRWAY HYPERREACTIVITY) : Influenza vaccine seasonally - current Indication:ASTHMA (Renamed from AIRWAY HYPERREACTIVITY) ASTHMA (Renamed from AIRWAY HYPERREACTIVITY) : FU EITHER - Tristan patient Indication:ASTHMA (Renamed from [...] HYPERREACTIVITY) ASTHMA (Renamed from AIRWAY HYPERREACTIVITY) : FU EITHER Indication:ASTHMA (Renamed from AIRWAY HYPERREACTIVITY) OBESITY [...] Results IMMUNOGLOBULIN E (IgE) Ordered On: 05-Jun-2019 (56012) IGE @ 565 kU/L (Abnormal) Comments: Unless otherwise specified, testing performed by [facility] [address] [place] [address] [id number] CBC, PLATELETS & AUT DIFF Ordered On: 05-Jun-2019 (46159) BASO # 0.0 10*3/uL Range: 0.0 10*3/uL - 0.2 10*3/uL (Normal) Comments: Unless otherwise specified, testing performed by [facility] [address] [place] [address] 82970 EOS # 0.0 10*3/uL Range: 0.0 10*3/uL [...] 10*3/uL (Abnormal) QUANTATATIVE Ordered On: 05-Jun-2019 IMMUNOGLOBULINS (76386) IGM @ 117 mg/dL (Normal) Range: 40 mg/dL - 248 mg/dL Comments: Unless otherwise specified, testing performed by [facility] [address] [place] [address] 50142 IGA @ 352 mg/dL (Normal) Range: 71 mg/dL - 374 mg/dL IGG @ 828 mg/dL (Normal) Range: 700 mg/dL - 1600 mg/dL SPUTUM CULTURE (78991) Ordered On: 09-May-2014 CULTURE, SPUTUM pseudomonas (Normal) SPUTUM CULTURE (56794) Ordered On: 20-Apr-2014 CULTURE, SPUTUM e coli Comments: see scanned doc (Normal) NTIHH-2-MWEBMSORNXY-TOTAL Ordered On: 29-May-2013 (49058) FBECX-7-ELYELKKPMDN-TOTAL see scanned doc (Normal) VEUYY-0-QIBMDRPKNJO-PHEN Ordered On: 29-May-2013 (30412) YMBXD-4-XXVATRHZGLH-PHEN MM (Normal) IMMUN SUBCLAS-IGG1,2,3 & 4 Ordered On: 29-May-2013 (80956) IMMUN SUBCLAS-IGG1,2,3 & 4 see scanned doc (Normal) RHEUMATOID FACTOR-QUANT Ordered On: 29-May-2013 (66333) RHEUMATOID FACTOR-QUANT Range: 0 [iU] - 15 [iU] see scanned doc [iU] (Normal) ANCA C&P W/REFLEX (60681) Ordered On: 29-May-2013 ANCA - C see scanned doc (Normal) CBC & PLATELETS (AUTO) Ordered On: 29-May-2013 (39676) BLOOD COUNT, PLATELET, AUTOMATED see scanned doc [...] (Normal) IMMUNOGLOBULIN E (IgE) Ordered On: 29-May-2013 (38633) IMMUNOGLOBULIN E (IgE) Range: 0 mg/dL - 380 mg/dL see scanned doc mg/dL (Abnormal) ACID FAST CUL/SMEAR Ordered On: 17-May-2013 ACID FAST CUL/SMEAR See Comments: SPECIMEN DESCRIPTION Note (Normal) BRONCHIAL WASHINGSSPECIAL REQUESTS ...ACID FAST SMEAR NO ACID FAST BACILLI (CONCENTRATED SMEAR)CULTURE RESULTS NO ACID FAST BACILLI ISOLATED AFTER 8 WEEKSREPORT STATUS FINAL 07/12/2013Unless otherwise specified, testing performed by [facility] [address] [place] [address] 81563 FUNGUS CULTURE Ordered On: 17-May-2013 FUNGUS CULTURE See Note Comments: SPECIMEN DESCRIPTION (Normal) BRONCHIAL WASHINGSSPECIAL REQUESTS NONECULTURE RESULTS BROOKE ALBICANSREPORT STATUS FINAL 06/14/2013Unless otherwise specified, testing performed by [email or web address] [address] [place] [address] 44616 LEGIONELLA CULTURE Ordered On: 17-May-2013 LEGIONELLA CULTURE See Comments: SPECIMEN DESCRIPTION Note (Normal) BRONCHIAL WASHINGSSPECIAL REQUESTS NONECULTURE RESULTS CULTURE DISCONTINUED DUE TO BACTERIAL CONTAMINAT IONREPORT STATUS FINAL 05/19/2013Unless otherwise specified, testing performed by [email or web address] [address] [place] [address] 48385 LEGIONELLA DFA Ordered On: 17-May-2013 LEGIONELLA DFA See Note Comments: SPECIMEN DESCRIPTION (Normal) BRONCHIAL WASHINGSSPECIAL REQUESTS NONERESULT NEGATIVE FOR LEGIONELLA PNEUMOPHILA BY DFAREPORT STATUS FINAL 05/17/2013Unless otherwise specified, testing performed by [email or web address] [address] [place] [address] 88550 RESPIRATORY CULTURE Ordered On: 17-May-2013 RESPIRATORY CULTURE [...] <=1 SUSCEPTIBLEUnless otherwise specified, testing performed by [email or web address] [address] [place] [address] [id number] PT (PROTHROMBIN TIME) Ordered On: 12-May-2013 (63807) INR 0.95 (Normal) Comments: SUGGESTED THERAPEUTIC RANGES USING INR FORSTABILIZED ANTICOAGULATED PATIENTS:STANDARD DOSE THERAPY INR 2.0-3.0 DVT, PE, PREVENT DVT OR EMBOLISMHIGH DOSE THERAPY INR 2.5-3.5 PREVENT EMBOLISM FROM MECHANICAL HEART VALVEUnless otherwise specified, testing performed by [email or web address] [address] [place] [address] 77216 PT 10.5 {SEC} (Normal) Range: 9.2 {SEC} - 11.9 {SEC} PLATELET COUNT ([id number]) Ordered On: 12-May-2013 PLT 301 10*3/uL (Normal) Range: 150 10*3/uL - 400 10*3/uL Comments: Unless otherwise specified, testing performed by [email or web address] [place] [address] PTT (ACTIVATED PARTIAL Ordered On: 12-May-2013 THROMBOPLASTIN TIME) ([id number]) APTT 27.1 {SEC} (Normal) Range: 22.0 {SEC} - 32.6 {SEC} Comments: Unless otherwise specified, testing performed by [email or web address] [address] [place] [id number] SKIN TEST INTRADERMAL TB Ordered On: 03-Mar-2013 Comments: LA LOT# [id number] EXP : ([id number]) 03/2014 SKIN TEST INTRADERMAL TB Comments: negative negative (Normal) [employer] ([id number]) Ordered On: 02-Mar-2013 Comments: x 3 TUBERCLE CULTURE negative Comments: also negative on 03/06 (Normal) and 03/07 samples collected SPUTUM CYTOLOGY ([id number]) Ordered On: 06-Mar-2013 SPUTUM CYTOLOGY negative Comments: on both 03/06 and 03/07 (Normal) samples collected SPUTUM CULTURE ([id number]) Ordered On: 02-Mar-2013 CULTURE, SPUTUM abnormal Comments: [...] Summary 05-Jun-2019 12:45 To 31-May-2019 8:49 [facility] Office Office Visit 05-Jun-2019 12:45 To 05-Jun-2019 12:42 Encounter Reason: ASTHMA, FOLLOW UP - The last clinic visit was 6 month(s) ago (And since that appointment the patient [facility] Office did have 3 courses of antibiotics [...] using cpap nightly. home care company is [employer]. no issues and no snoring with cpap [...] ago. Management changes made at the last [facility] Office it include none (Except to hold [...] using cpap nightly. home care company is [employer]. no issues and no snoring with cpap on and feels more rested with use. 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 Office Order Only 20-Apr-2019 10:46 To 20-Apr-2019 10:49 Encounter Diagnosis: ACUTE BRONCHITIS [facility] Office Visit 17-Nov-2018 13:45 To 17-Nov-2018 14:10 Encounter Reason: ASTHMA, FOLLOW UP - The last clinic visit was 4 month(s) ago (And since that appointment the patient [facility] [place] has seen infectious disease August [...] using cpap nightly. home care company is [employer]. no issues and no snoring with cpap [...] DYSPNEA, WHEEZE Historical Summary 17-Nov-2018 13:45 To 17-Nov-2018 13:45 [facility] Historical Summary 17-Nov-2018 13:45 To 11-Nov-2018 9:02 Encounter Reason: ASTHMA, FOLLOW UP - The last clinic visit was 4 month(s) ago (And since that appointment the patient [facility] has seen infectious disease August [...] To 29-Aug-2018 7:51 Encounter Diagnosis: IGG DEFICIENCY [facility] Office Order Only 16-Aug-2018 10:36 To 16-Aug-2018 10:40 Encounter Diagnosis: ACUTE BRONCHITIS [facility] Office Order Only 11-Aug-2018 11:01 To 11-Aug-2018 11:05 Encounter Diagnosis: ABNORMAL SPUTUM [facility] Office Visit 01-Aug-2018 9:30 To 02-Aug-2018 10:32 Encounter Reason: ASTHMA, FOLLOW UP - The last clinic visit was 2 month(s) ago. Management changes made at the last [facility] Office it include changing the dose of [...] using cpap nightly. home care company is [employer]. no issues and no s noring with [...] To 29-Jul-2018 10:03 Encounter Diagnosis: ACUTE BRONCHITIS [facility] Office Medication Order 05-Jul-2018 15:48 To 05-Jul-2018 15:50 Encounter Diagnosis: ASTHMA (Renamed from AIRWAY HYPERREACTIVITY) [facility] Office Office Visit 08-Jun-2018 10:21 To 08-Jun-2018 13:45 Encounter Reason: ASTHMA, FOLLOW UP - The last clinic visit was 3 month(s) ago. No changes in management were made at [facility] Office he last visit. The patient's asthma [...] By report there is good compliance with [facility] ent, good tolerance of treatment and fair [...] 16:39 Encounter Diagnosis: CARCINOID TUMOR OF LUNG [facility] Office Historical Summary 16-Feb-2018 11:38 To 16-Feb-2018 11:40 Encounter Reason: ASTHMA, FOLLOW UP - The last clinic visit was 3 month(s) ago. Management changes made at the last [facility] it include ordering tests. The patient's [...] Historical Summary 16-Feb-2018 11:09 To 16-Feb-2018 11:09 [facility] Office Visit 16-Feb-2018 10:36 To 16-Feb-2018 12:04 Encounter Reason: ASTHMA, FOLLOW UP - The last clinic visit was 3 month(s) ago. Management changes made at the last vis [facility] it include ordering tests. [...] Historical Summary 04-Feb-2018 14:15 To 04-Feb-2018 14:21 [facility] Office Order Only 17-Nov-2017 15:48 To 17-Nov-2017 15:51 Encounter Diagnosis: ABNORMAL FINDING ON LUNG IMAGING [facility] Office Office Visit 17-Nov-2017 13:49 To 17-Nov-2017 14:24 Encounter Reason: ASTHMA, FOLLOW UP - The last clinic visit was 9 month(s) ago (and has lost 9# since last seen, had [facility] Office t knee surgery 2 weeks ago and since [...] ago. Management changes made at the last [facility] Office it include none (except to use [...] Historical Summary 13-Nov-2017 10:06 To 13-Nov-2017 10:09 [facility] Office Order Only 03-May-2017 14:33 To 03-May-2017 14:35 Encounter Diagnosis: ASTHMA (Renamed from AIRWAY HYPERREACTIVITY) [facility] Historical Summary 05-Apr-2017 16:16 To 05-Apr-2017 16:23 Encounter Diagnosis: ASTHMA (Renamed from AIRWAY HYPERREACTIVITY) [facility] Office Medication Order 02-Apr-2017 11:02 To 02-Apr-2017 11:54 Encounter Diagnosis: ACUTE BRONCHITIS [facility] Office Visit 26-Feb-2017 8:56 To 26-Feb-2017 11:06 Encounter Reason: ASTHMA, FOLLOW UP - The last clinic visit was 3 month(s) ago (primary is Dr. Donte Mckinney). No changes [facility] in management were made at the last [...] To 08-Feb-2017 11:56 Encounter Diagnosis: ABNORMAL SPUTUM [facility] Historical Summary 04-Feb-2017 14:17 To 04-Feb-2017 14:21 Encounter Diagnosis: ASTHMA (Renamed from AIRWAY HYPERREACTIVITY) [facility] Office Order Only 30-Nov-2016 15:44 To 30-Nov-2016 15:45 Encounter Diagnosis: ASTHMA (Renamed from AIRWAY HYPERREACTIVITY) [facility] Office Visit 30-Nov-2016 15:01 To 30-Nov-2016 15:48 Encounter Reason: ASTHMA, FOLLOW UP - The last clinic visit was 3 month(s) ago (primary is Dr. Donte Mckinney). No changes [facility] in management were made at the [...] was 5 month(s) ago (and hospitalized in [place] 08/23-08/27/19 [facility] 17 with pneumonia and still [...] Dr. Donte Mckinney). No changes [facility] in management were made at the [...] Encounter Diagnosis: ABNORMAL FINDING ON LUNG IMAGING [facility] Order Only 03-Jan-2016 8:56 To 03-Jan-2016 10:08 Encounter Diagnosis: ABNORMAL FINDING ON LUNG IMAGING [facility] Office Visit 03-Jan-2016 8:04 To [...] Encounter Diagnosis: ABNORMAL FINDING ON LUNG IMAGING [facility] Historical Summary 26-Nov-2015 14:51 To 26-Nov-2015 14:52 Encounter Reason: ASTHMA, FOLLOW UP - The last clinic visit was 3 month(s) ago (primary is Dr. Donte Mckinney). Management [facility] changes made at the last [...] ago (primary is Dr. Donte Mckinney). Management [facility] changes made at the last [...] 11:02 Encounter Diagnosis: CARCINOID TUMOR OF LUNG [facility] Office Visit 26-Aug-2015 10:19 To 26-Aug-2015 14:58 Encounter Reason: ASTHMA, FOLLOW UP - The last clinic visit was 3 month(s) ago (primary is Dr. Donte Mckinney). Management [facility] changes made at the last visit [...] ago. Management changes made at the last [facility] Office t include none (and is to [...] is Dr. Donte Mckinney). No changes i [place] [facility] n management were made at [...] Encounter Diagnosis: ASTHMA (Renamed from AIRWAY HYPERREACTIVITY) [facility] Order Only 22-Apr-2015 14:19 To 22-Apr-2015 14:23 Encounter Diagnosis: ABNORMAL FINDING ON LUNG IMAGING [facility] Historical Summary 19-Apr-2015 13:28 To 19-Apr-2015 13:31 [facility] Historical Summary 19-Apr-2015 12:53 To 19-Apr-2015 12:54 Encounter Reason: ASTHMA, FOLLOW UP - The last clinic visit was 6 month(s) ago (primary is Dr. Donte Mckinney, also seeing [facility] Dr. Knight). Management changes made [...] (primary is Dr. Donte Mckinney, also seeing [facility] Dr. Knight). Management changes made [...] (primary is Dr. Donte Mckinney, also seeing [facility] Dr. Knight). Management changes made at [...] Encounter Diagnosis: BACTERIAL INFECTION DUE TO PSEUDOMONAS [facility] Office Visit 02-Aug-2014 10:32 To 02-Aug-2014 16:02 Encounter Reason: ASTHMA, FOLLOW UP - The last clinic visit was 3 month(s) ago (primary is Dr. Donte Mckinney, also seeing [facility] Dr. Knight). Management changes made [...] (primary is Dr. Donte Mckinney, also seeing [facility] Dr. Knight). Management changes made at [...] Encounter Diagnosis: ASTHMA (Renamed from AIRWAY HYPERREACTIVITY) [facility] Order Only 18-Apr-2014 15:07 To 18-Apr-2014 15:08 Encounter Diagnosis: BACTERIAL INFECTION DUE TO PSEUDOMONAS [facility] Medication Order 11-Apr-2014 14:55 To 11-Apr-2014 15:06 Encounter Diagnosis: BACTERIAL INFECTION DUE TO PSEUDOMONAS [facility] Office Visit 21-Mar-2014 9:37 To 21-Mar-2014 13:33 Encounter Reason: ASTHMA, FOLLOW UP - The last clinic visit was 3 month(s) ago (primary is Dr. Donte Mckinney, also seeing [facility] Dr. Knight). No changes in [...] (primary is Dr. Donte Mckinney, also seeing [facility] Dr. Knight). No changes in management [...] Encounter Diagnosis: BACTERIAL INFECTION DUE TO PSEUDOMONAS [facility] Office Medication Order 01-Nov-2013 11:27 To 08-Nov-2013 17:51 Encounter Diagnosis: BACTERIAL INFECTION DUE TO PSEUDOMONAS [facility] Order Only 28-Jul-2013 15:54 To 28-Jul-2013 16:10 Encounter Diagnosis: ABNORMAL FINDING ON LUNG IMAGING [facility] Historical Summary 06-Jul-2013 14:42 To 06-Jul-2013 14:44 Encounter Reason: ASTHMA, FOLLOW UP - The last clinic visit was 1 month(s) ago (primary is Dr. Donte Mckinney, also seeing [facility] Dr. Knight). No changes in management [...] (primary is Dr. Donte Mckinney, also seeing [facility] Dr. Knight). No changes in management [...] (primary is Dr. Donte Mckinney, also seeing [facility] Dr. Knight). No changes in [...] (primary is Dr. Donte Mckinney, also seeing [facility] Dr. Knight). No changes in [...] (primary is Dr. Donte Mckinney, also seeing [facility] Dr. Knight). No changes in management [...] (primary is Dr. Donte Mckinney, also seeing [facility] Dr. Knight). No changes in management [...] Encounter Diagnosis: BACTERIAL INFECTION DUE TO PSEUDOMONAS [facility] Office Visit 12-May-2013 14:37 To 12-May-2013 15:37 Encounter Reason: ASTHMA, FOLLOW UP - The last clinic visit was 1 month(s) ago (primary is Dr. Donte Mckinney, also seeing [facility] Dr. Knight). No changes [...] (primary is Dr. Donte Mckinney, also seeing [facility] blanca Knight). Management changes made at [...] (primary is Dr. Donte Mckinney, also seeing [facility] Dr. Knight). Management changes made at [...] tests but does know that her hu bre tests positive from prior exposure in other [...] Encounter Diagnosis: ASTHMA (Renamed from AIRWAY HYPERREACTIVITY) [facility] Medication Order 10-Mar-2013 12:38 To 10-Mar-2013 13:02 Encounter Diagnosis: BACTERIAL INFECTION DUE TO PSEUDOMONAS [facility] Order Only 03-Mar-2013 10:58 To 07-Mar-2013 16:05 Encounter Diagnosis: ABNORMAL FINDING ON LUNG IMAGING [facility] Office Visit 02-Mar-2013 15:20 To 02-Mar-2013 16:32 Encounter Reason: ASTHMA, FOLLOW UP - The last clinic visit was 7 month(s) ago (primary is Dr. Donte Mckinney). Management [facility] changes made at the last visit [...] ago (primary is Dr. Donte Mckinney). Management [facility] changes made at the last visit [...] on cpap nightly. home care company is [employer]. gets supplies prn. able to wear cpap [...] (primary is Dr. Donte Mckinney). No changes [facility] in management were made at the last [...] on cpap nightly. home care company is [employer]. gets supplies prn. ab le to wear cpap all night without any respiratory symptoms. feels more rested with use), allergic rhinitis and gastroesophageal reflux. denies recent hospitalizations. Encounter Diagnosis: PULMONARY NODULE (518.89) , ASTHMA (493.90), PABLITO (OBSTRUCTIVE SLEEP APNEA) (327.23), OBESITY (278.00), AR (ALLERGIC RHINITIS) (477.9), GERD (GASTROESOPHAGEAL REFLUX DISEASE) (530.81) Medication Order 30-Jun-2012 17:24 To 30-Jun-2012 17:26 Encounter Diagnosis: ASTHMA (493.90) [facility] Office Office Visit 04-Feb-2012 14:33 To 04-Feb-2012 15:23 Encounter Reason: Asthma follow up - The last clinic visit was 6 month(s) ago. No changes in management were made at t [facility] he last visit. Symptoms include shortness [...] includes CPAP therapy (home care company is [employer], mask fits, has humidity. gets mask/supplies prn). [...] ago. Management changes made at the last [facility] Office it include adding symbicort 160/4.5 and [...] Historical Summary 03-Aug-2011 19:22 To 03-Aug-2011 19:[address] [facility] Medication Order 09-Jul-2011 8:23 To 09-Jul-2011 8:26 Encounter Diagnosis: AR (ALLERGIC RHINITIS) ( 477.9) [facility] Office Visit 01-May-2011 10:18 To 01-May-2011 11:38 Encounter Reason: Sleep Follow Up PHP - The sleep disorder is characterized as obstructive sleep apnea. The last clinic [facility] Office visit was 6 month(s) ago. Management [...] Historical Summary 30-Apr-2011 11:48 To 30-Apr-2011 12:19 [facility] Payers [place] [address] [facility] [id number] [place] Group Number: [id number] tel: JUSTINA [place] [address] [address] [place] [address] [place] Group Number: [id number] tel: RICHIE HADDAD [id number] [facility] [id number] tel:
--- OUTSIDE RECORDS SUMMARY | 2019-07-13 12:32 | XMS REPORT | Continuity of Care Document ---
:1935 Author Name House Parent, System Address Unavailable Unavailable , Care Team Providers Name Role Phone Faye DUFFY, Donte Unavailable Denver Hudson DO Unavailable NATALYA DUFFY, LASHAY Lugo Unavailable Antonia DUFFY, Saul Brady Unavailable Ranulfo DUFFY, Maryann Unavailable HOACSHAZIA, Hematology DIrect Address Unavailable Unavailable LawEdmundo M Unavailable Floyd DUFFY, Amisha Caldwell Unavailable Tasha DPM, Main Unavailable Beaudin OYSTER CULLER, Kobe Unavailable Unavailable Elizabeth Msn Npc, Mela Le Unavailable Davin OYSTER CULLER, Yvette Unavailable Unavailable Marlyn MSN, NPC, Gregoria Unavailable Margo OYSTER CULLER, Yael Unavailable Unavailable Matti DUFFY, Dr. Guero Melo Unavailable Hilary MSN NPC, Sia Unavailable Nav LRT, Piper Unavailable Unavailable Loveless OYSTER CULLER, Ally Unavailable Unavailable Flaherty LRT, Guero Unavailable Unavailable More LRT, Tera Unavailable Unavailable Rodriguez OYSTER CULLER, Pancho Unavailable Unavailable Taylor OYSTER CULLER, Briseida Unavailable Unavailable Reginald FUNERAL SERVICE LICENSEE, Reji Unavailable Unavailable Cristopher OYSTER CULLER, December Unavailable Unavailable Unavailable Unavailable Problems ABNORMAL FINDING [...] Tablet; 1 daily (10 MG) CALCIUM-VITAMIN D, [id number] (Oral Tablet); three times daily (250-125 MG-UNIT) [...] 0 Comments: 30mg po x 2 days, [id number] po x 2 days [id number] po x 2 days, then stop Qvar [...] EXHALED NITRIC OXIDE MEASUREMENT Status: Completed 05-Jun-2019 (59637) EXHALED NITRIC OXIDE MEASUREMENT Date: 01-Aug-2018 Status: Completed 2018 (32570) AIRFLOW RESISTANCE MEASUREMENT: Status: Completed 17-Nov-2018 PULM FUNCT TEST OSCILLOMETRY (28679) THORACIC GAS VOLUME: AIRWAY Status: Completed 17-Nov-2018 CLOSING VOLUME MEASUREMENT: PULM FUNCTION TEST BY GAS (73731) TOTAL VITAL CAPACITY (34217) Status: Completed 17-Nov-2018 MEASUREMENT OF NITRIC Status: Completed 17-Nov-2018 OXIDE (48970) MEASUREMENT OF NITRIC Status: Completed 08-Jun-2018 OXIDE (18759) RESPIRATORY FLOW VOLUME LOOP Status: Completed 08-Jun-2018 (26247) TOTAL VITAL CAPACITY (70859) Status: Completed 16-Feb-2018 TOTAL BODY PLETHYSMOGRAPHY: Status: Completed 16-Feb-2018 AIRFLOW RESISTANCE MEASUREMENT (23837) THORACIC GAS VOLUME: AIRWAY Status: Completed 16-Feb-2018 CLOSING VOLUME MEASUREMENT: PULM FUNCTION TEST BY GAS (12427) RESPIRATORY FLOW VOLUME LOOP Status: Completed 16-Feb-2018 (48200) DLCO (CARBON MONOXIDE DIFFUSING Status: Completed 16-Feb-2018 CAPACITY) (24567) AIRFLOW RESISTANCE MEASUREMENT: Status: Completed 16-Feb-2018 PULM FUNCT TEST OSCILLOMETRY (46001) PRE AND POST (35801) Status: Completed 16-Feb-2018 RESPIRATORY FLOW VOLUME LOOP Status: Completed 17-Nov-2017 (36452) TOTAL VITAL CAPACITY (94610) Status: Completed 26-Feb-2017 TOTAL BODY PLETHYSMOGRAPHY (60709) Status: Completed 26-Feb-2017 TGV THORACIC GAS VOLUME: AIRWAY Status: Completed 26-Feb-2017 CLOSING VOLUME MEASUREMENT: PULM FUNCTION TEST BY GAS (45006) RESPIRATORY FLOW VOLUME LOOP Status: Completed 26-Feb-2017 (91171) DLCO (CARBON MONOXIDE DIFFUSING Status: Completed 26-Feb-2017 CAPACITY) (53057) AIRFLOW RESISTANCE MEASUREMENT: Status: Completed 26-Feb-2017 PULM FUNCT TEST OSCILLOMETRY (89225) PRE AND POST (61730) Status: Completed 26-Feb-2017 RESPIRATORY FLOW VOLUME LOOP Status: Completed 09-Sep-2016 (85475) PRE AND POST (60094) Status: Completed 09-Sep-2016 TOTAL VITAL CAPACITY (76071) Status: Completed 17-Apr-2016 TOTAL BODY PLETHYSMOGRAPHY (05671) Status: Completed 17-Apr-2016 TGV THORACIC GAS VOLUME: AIRWAY Status: Completed 17-Apr-2016 CLOSING VOLUME MEASUREMENT: PULM FUNCTION TEST BY GAS (45862) RESPIRATORY FLOW VOLUME LOOP Status: Completed 17-Apr-2016 (90220) DLCO (CARBON MONOXIDE DIFFUSING Status: Completed 17-Apr-2016 CAPACITY) (81261) AIRFLOW RESISTANCE MEASUREMENT: Status: Completed 17-Apr-2016 PULM FUNCT TEST OSCILLOMETRY (62792) PRE AND POST (88176) Status: Completed 17-Apr-2016 RESPIRATORY FLOW VOLUME LOOP Status: Completed 26-Nov-2015 (99095) TOTAL VITAL CAPACITY (26626) Status: Completed 26-Aug-2015 TOTAL BODY PLETHYSMOGRAPHY (59961) Status: Completed 26-Aug-2015 TGV THORACIC GAS VOLUME: AIRWAY Status: Completed 26-Aug-2015 CLOSING VOLUME MEASUREMENT: PULM FUNCTION TEST BY GAS (94933) RESPIRATORY FLOW VOLUME LOOP Status: Completed 26-Aug-2015 (06708) DLCO (CARBON MONOXIDE DIFFUSING Status: Completed 26-Aug-2015 CAPACITY) (83113) AIRFLOW RESISTANCE MEASUREMENT: Status: Completed 26-Aug-2015 PULM FUNCT TEST OSCILLOMETRY (46601) PRE AND POST (83350) Status: Completed 26-Aug-2015 AIRFLOW RESISTANCE MEASUREMENT: Status: Completed 19-Apr-2015 PULM FUNCT TEST OSCILLOMETRY (91792) TOTAL VITAL CAPACITY (28154) Status: Completed 19-Apr-2015 TOTAL BODY PLETHYSMOGRAPHY: AIRWAY Status: Completed 19-Apr-2015 CLOSING VOLUME MEASUREMENT: PULM FUNCT TST PLETHYSMOGRAP (29236) RESPIRATORY FLOW VOLUME LOOP Status: Completed 19-Apr-2015 (53000) THORACIC GAS VOLUME: AIRWAY Status: Completed 19-Apr-2015 CLOSING VOLUME MEASUREMENT: PULM FUNCTION TEST BY GAS (89667) DLCO (CARBON MONOXIDE DIFFUSING Status: Completed 19-Apr-2015 CAPACITY) (74729) PRE AND POST (29382) Status: Completed 19-Apr-2015 RESPIRATORY FLOW VOLUME LOOP Status: Completed 02-Aug-2014 (09924) PRE AND POST (10168) Status: Completed 02-Aug-2014 RESPIRATORY FLOW VOLUME LOOP Status: Completed 21-Mar-2014 (85625) PRE AND POST (02631) Status: Completed 21-Mar-2014 MEDICARE RX CODE: AT LEAST ONE Status: Completed 29-May-2013 PRESCRIPTION CREATED DURING THE ENCOUNTER WAS GENERATED AND TRANSMITTED ELECTRONICALLY USING A QUALIFIED ERX SYSTEM (G8553) RESPIRATORY FLOW VOLUME LOOP Status: Completed 10-Apr-2013 (26395) PRE AND POST (78872) Status: Completed 10-Apr-2013 RESPIRATORY FLOW VOLUME LOOP Status: Completed 02-Mar-2013 (06839) SPIROMETRY WITH BRONCHODILATOR Status: Completed 02-Mar-2013 (62479) MEDICARE RX CODE: AT LEAST ONE Status: Completed 07-Oct-2012 PRESCRIPTION CREATED DURING THE ENCOUNTER WAS GENERATED AND TRANSMITTED ELECTRONICALLY USING A QUALIFIED ERX SYSTEM (G8553) REST/EXERCISE OXIMETRY (56602) Status: Completed 07-Oct-2012 RESPIRATORY FLOW VOLUME LOOP Status: Completed 07-Oct-2012 (09466) PRE AND POST W/ RT (43820) Status: Completed 07-Oct-2012 ACT Status: Completed 03-Feb-2011 [...] pleural scar in RML PRE AND POST (25909)Result: Hemoptysis: No Status: Completed 17-Nov-2018 CAT SCAN OF CHEST: CT THORAX W/O DYE (67642)Result: Status: Completed 2018 Are you or could you become ?: No; When was you last CXR/CT?: over week ago; Land Survey Technician: JUAN Booth PRE AND POST (82390)Result: Hemoptysis: No Status: Completed 01-Aug-2018 PRE AND POST (74865)Result: Hemoptysis: No Status: Completed 08-Jun-2018 CAT SCAN OF CHEST: CT THORAX W/O DYE (14790)Result: Status: Completed 2017 Are you or could you become ?: No; When was you last CXR/CT?: over a week ago; Land Survey Technician: Piper Chopra, LRT PRE AND POST (52911)Result: Hemoptysis: No Status: Completed 17-Nov-2017 CHEST X-RAY, PA AND LATERAL (75094)Result: Are you Status: Completed 2016 or could you become ?: No; When was you last CXR/CT?: over week ago; Land Survey Technician: Tera Bundy, LRT CHEST X-RAY, PA AND LATERAL (41784)Result: Are you Date: 30-Nov-2016 or could you become ?: No; When was Status: Completed 2016 you last CXR/CT?: over week ago; Land Survey Technician: Tera Bundy, LRT CHEST X-RAY, PA AND LATERAL (88376)Result: Are you Date: 30-Nov-2016 or could you become ?: No; When was Status: Completed 2016 you last CXR/CT?: over week ago; Land Survey Technician: Comments: [facility] at [facility] Tera Bundy, LRT CHEST X-RAY, PA AND LATERAL (78723)Result: Are you Status: Completed 2016 or could you become ?: No; When was you last CXR/CT?: OVER WEEK AGO; Land Survey Technician: Tera Bundy, LRT CT THORAX W/O DYE (89606)Result: Are you or Status: Completed could you become ?: No; When was you last CXR/CT?: over week ago; Land Survey Technician: Tera Bundy, LRT CT THORAX W/O DYE (26832)Result: Are you or Status: Completed could you become ?: No; When was you last CXR/CT?: OVER WEEK AGO; Land Survey Technician: Tera Bundy, LRT CHEST X-RAY, PA AND LATERAL (76653)Result: Are you Status: Completed 2015 or could you become ?: No; When was you last CXR/CT?: over week ago; Land Survey Technician: Tera Bundy, LRT PRE AND POST (06650)Result: Hemoptysis: No Status: Completed 26-Nov-2015 CT THORAX W/O DYE (60788)Result: Are you or Status: Completed 2015 could you become ?: No; When was you last CXR/CT?: over a week ago; Land Survey Technician: Tera Bundy, LRT CAT SCAN OF CHEST: CT THORAX W/O DYE (03301)Result: Status: Completed 2014 Are you or could you become ?: No; When was you last CXR/CT?: over a week ago; Land Survey Technician: Tera Bundy, LRT CAT SCAN OF CHEST: CT THORAX W/O DYE (40624)Result: Status: Completed 2014 Are you or could you become ?: No; When was you last CXR/CT?: 2014; Land Survey Technician: Guero Flaherty, LRT CAT SCAN OF CHEST: CT THORAX W/O DYE (61851)Result: Status: Completed 2014 Are you or could you become ?: No; When was you last CXR/CT?: OVER 1 WEEK AGO; Land Survey Technician: Tera Bundy, LRT CT THORAX W/O DYE (07497)Result: Are you or Status: Completed could you become ?: No; When was you last CXR/CT?: 04/01; Land Survey Technician: Guero Flaherty, LRT CHEST X-RAY, PA AND LATERAL (10286)Result: Are you Status: Completed 2013 or could you become ?: No; When was you last CXR/CT?: over 2 months ago; Land Survey Technician: Tera Bundy, LRT CT THORAX W/O DYE (55184)Result: Are you or Status: Completed 2013 could you become ?: No; When was you last CXR/CT?: last month; Land Survey Technician: Tera Bundy, LRT CT THORAX W/O DYE (53568)Result: Are you or Date: 21-Nov-2013 could you become ?: No; When was you last Status: Completed 2013 CXR/CT?: last month; Land Survey Technician: Guero Flaherty, LRT CAT SCAN OF CHEST: CT THORAX W/O DYE (91550)Result: Status: Completed 2012 Are you or could you become ?: No; Land Survey Technician: Rosalinda Rodriguez LPN CT THORAX W/O DYE (32380)Result: Are you or Status: Completed 2012 could you become ?: No; Land Survey Technician: JUAN Booth ACT: ASSESSMENT OF DISEASE: ASTHMA [...] Score: 17 CHEST X-RAY, PA AND LATERAL (04071)Result: Are you Status: Completed 2012 or could you become ?: No; Land Survey Technician: JUAN Booth Asthma Control Test (ACT)Result: [Questions] [...] Score] Score: 19 RESPIRATORY FLOW VOLUME LOOP (88817)Result: Date: 04-Aug-2011 Hemoptysis: No; Medication Used: Albuterol 0.083% kendell aerosol; Traveling Plant Operator: Reji Montelongo RRT RESPIRATORY FLOW VOLUME LOOP (36413)Result: Date: 01-May-2011 Hemoptysis: No; Medication Used: Albuterol 0.083% kendell aerosol; Traveling Plant Operator: Yael Aragon LPN Immunizations Influenza (3 years [...] Skin Test, Intradermal On: 03-Mar-2013 Lot #: [id number] Family History Allergic Rhinitis Status: Active Comments: Father. Emphysema Status: Active Comments: Father. Social History Alcohol use: Occasional alcohol use. Current work status: Retired. Marital status: . No caffeine use No drug use Tobacco use: Never smoker. Never smoker Female Plan of Treatment CAT SCAN OF CHEST: CT THORAX W/O DYE Start: 05-Jul-2019 Intent (91500) REST OXIMETRY (65986) Start: 05-Jun-2019 Intent SIMPLE PFT: BASELINE PULMONARY Start: 05-Jun-2019 Intent FUNCTION TEST (PFT) (44369) REST OXIMETRY (65314) Start: 17-Nov-2018 Intent CONTINUOUS OVERNIGHT OXIMETRY Start: 08-Jun-2018 Intent (70473) Comments: on cpap REST OXIMETRY (79654) Start: 16-Feb-2018 Intent EXHALED NITRIC OXIDE MEASUREMENT Start: 17-Nov-2017 Intent (95180) Comments: Evaluated patient's nitric oxide. The results were 16 ppb RESPIRATORY FLOW VOLUME LOOP (04006) Start: 30-Nov-2016 Intent SIMPLE PFT: BASELINE PULMONARY Start: 30-Nov-2016 Intent FUNCTION TEST (PFT) (45175) REST OXIMETRY (23014) Start: 09-Sep-2016 Intent REST OXIMETRY (73686) Start: 26-Nov-2015 Intent REST OXIMETRY (51756) Start: 19-Apr-2015 Intent RESPIRATORY FLOW VOLUME LOOP (65220) Start: 11-Oct-2014 Intent PRE AND POST (65351) Start: 11-Oct-2014 Intent REST/ EXERCISE OXIMETRY (79970) Start: 21-Nov-2013 Intent TOTAL VITAL CAPACITY (35534) Start: 21-Nov-2013 Intent TOTAL BODY PLETHYSMOGRAPHY (07118) Start: 21-Nov-2013 Intent TGV THORACIC GAS VOLUME: AIRWAY Start: 21-Nov-2013 Intent CLOSING VOLUME MEASUREMENT: PULM FUNCTION TEST BY GAS (31655) RESPIRATORY FLOW VOLUME LOOP (99013) Start: 21-Nov-2013 Intent DLCO (CARBON MONOXIDE DIFFUSING Start: 21-Nov-2013 Intent CAPACITY) (48889) AIRFLOW RESISTANCE MEASUREMENT: PULM Start: 21-Nov-2013 Intent FUNCT TEST OSCILLOMETRY (99893) PRE AND POST (98598) Start: 21-Nov-2013 Intent REST OXIMETRY (58435) Start: 06-Jul-2013 Intent RESPIRATORY FLOW VOLUME LOOP (67588) Start: 06-Jul-2013 Intent PRE AND POST (28420) Start: 06-Jul-2013 Intent BRONCHOSCOPY IN ENDO (95445) Start: 12-May-2013 Intent REST/ EXERCISE OXIMETRY (00263) Start: 02-Mar-2013 Intent ACT: ASSESSMENT OF DISEASE: ASTHMA Start: 02-Mar-2013 Intent SYMPTOMS EVALUATE (1005F) REST/EXERCISE OXIMETRY (75310) Start: 08-Aug-2012 Intent RESPIRATORY FLOW VOLUME LOOP (97979) Start: 08-Aug-2012 Intent PRE/POST (07413) Start: 08-Aug-2012 Intent RESPIRATORY FLOW VOLUME LOOP (97408) Start: 04-Feb-2012 Intent EXERCISE OXIMETRY (63577) Start: 04-Feb-2012 Intent REST OXIMETRY (27445) Start: 04-Feb-2012 Intent PRE/POST (33174) Start: 04-Feb-2012 Intent PRE/POST W/ RT (84592) Start: 04-Aug-2011 Intent REST OXIMETRY (18991) Start: 04-Aug-2011 Intent EXERCISE OXIMETRY (80706) Start: 04-Aug-2011 Intent Pre/Post (06944) Start: 01-May-2011 Intent [employer] (90852) Start: 05-Jun-2019 12:32 Request SPUTUM CULTURE (60181) Start: 05-Jun-2019 12:32 Request SPUTUM CULTURE (47193) Start: 20-Apr-2019 10:48 Request BUN (BLOOD UREA NITROGEN) (11438) Start: 16-Aug-2018 10:40 Request CREATININE BLOOD (34949) Start: 16-Aug-2018 10:40 Request SPUTUM CULTURE (67658) Start: 11-Aug-2018 11:01 Request SPUTUM CULTURE (42111) Start: 29-Jul-2018 10:01 Request CANDACE SCREEN (73070) Start: 17-Nov-2017 14:20 Request RHEUMATOID FACTOR-QUANT (99763) Start: 17-Nov-2017 14:20 Request SED RATE ERYTHROCYTE (54634) Start: 17-Nov-2017 14:20 Request Comments: ICD 279.49 RHEUMATOID FACTOR-QUANT (40942) Start: 17-Nov-2017 14:19 Request QDIAD-0-YDEVAEWMFRH-TOTAL (20525) Start: 17-Nov-2017 14:19 Request PHLKS-1-UFKKIXSCTLA-PHEN (35755) Start: 17-Nov-2017 14:19 Request QUANTATATIVE IMMUNOGLOBULINS (85969) Start: 17-Nov-2017 14:15 Request IMMUNOGLOBULIN E (IgE) (98613) Start: 17-Nov-2017 14:15 Request CBC, PLATELETS & AUT DIFF (63582) Start: 17-Nov-2017 14:15 Request SPUTUM CULTURE (32599) Start: 03-May-2017 14:34 Request CBC, PLATELETS & AUT DIFF (86494) Start: 26-Feb-2017 10:15 Request QUANTATATIVE IMMUNOGLOBULINS (03663) Start: 26-Feb-2017 10:15 Request IMMUNOGLOBULIN E (IgE) (50408) Start: 26-Feb-2017 10:15 Request ASTHMA (Renamed from [...] PSEUDOMONAS : Start flutter device- faxed to home care company Indication:BACTERIAL INFECTION DUE TO PSEUDOMONAS ASTHMA (Renamed from AIRWAY HYPERREACTIVITY) : Continue with Spiriva with 2.5mcg samples to replace low dose for a trial Indication:ASTHMA (Renamed from AIRWAY HYPERREACTIVITY) OBSTRUCTIVE SLEEP APNEA : Change to auto titrating CPAP- faxed to home care company already Indication:OBSTRUCTIVE SLEEP APNEA ASTHMA (Renamed from [...] PSEUDOMONAS ASTHMA (Renamed from AIRWAY HYPERREACTIVITY) : SINAN CABRERA Parminder Hudson patient with Tristan in office Indication:ASTHMA (Renamed from AIRWAY HYPERREACTIVITY) ASTHMA (Renamed from AIRWAY HYPERREACTIVITY) : Keep upcoming appt as scheduled Indication:ASTHMA (Renamed from AIRWAY HYPERREACTIVITY) ASTHMA (Renamed from AIRWAY HYPERREACTIVITY) : SINAN CABRERA - patient Indication:ASTHMA (Renamed from AIRWAY HYPERREACTIVITY) ASTHMA (Renamed from AIRWAY HYPERREACTIVITY) : Influenza vaccine seasonally - current Indication:ASTHMA (Renamed from AIRWAY HYPERREACTIVITY) ABNORMAL FINDING ON LUNG IMAGING : FU EITHER patient with MD in office (end jul [address] chest) Indication:ABNORMAL FINDING ON LUNG IMAGING PULMONARY NODULE : FU EITHER patient Indication:PULMONARY NODULE PULMONARY NODULE : CT chest soon Indication:PULMONARY NODULE ASTHMA (Renamed from AIRWAY HYPERREACTIVITY) : FU EITHER - patient Indication:ASTHMA (Renamed from AIRWAY HYPERREACTIVITY) ASTHMA (Renamed from AIRWAY HYPERREACTIVITY) : Influenza vaccine seasonally - current Indication:ASTHMA (Renamed from AIRWAY HYPERREACTIVITY) ASTHMA (Renamed from AIRWAY HYPERREACTIVITY) : FU EITHER - patient Indication:ASTHMA (Renamed from AIRWAY HYPERREACTIVITY) ASTHMA [...] HYPERREACTIVITY) ASTHMA (Renamed from AIRWAY HYPERREACTIVITY) : Indication:ASTHMA (Renamed from AIRWAY HYPERREACTIVITY) OBESITY (Renamed [...] Results IMMUNOGLOBULIN E (IgE) Ordered On: 05-Jun-2019 (93868) IGE @ 565 kU/L (Abnormal) Comments: Unless otherwise specified, testing performed by [facility] [address] [place] [address] 63954 CBC, PLATELETS & AUT DIFF Ordered On: 05-Jun-2019 (21581) BASO # 0.0 10*3/uL Range: 0.0 10*3/uL - 0.2 10*3/uL (Normal) Comments: Unless otherwise specified, testing performed by [facility] [address] [place] [address] 04781 EOS # 0.0 10*3/uL Range: 0.0 10*3/uL [...] 10*3/uL (Abnormal) QUANTATATIVE Ordered On: 05-Jun-2019 IMMUNOGLOBULINS (04798) IGM @ 117 mg/dL (Normal) Range: 40 mg/dL - 248 mg/dL Comments: Unless otherwise specified, testing performed by [facility] [address] [place] [address] 74709 IGA @ 352 mg/dL (Normal) Range: 71 mg/dL - 374 mg/dL IGG @ 828 mg/dL (Normal) Range: 700 mg/dL - 1600 mg/dL SPUTUM CULTURE (47764) Ordered On: 09-May-2014 CULTURE, SPUTUM pseudomonas (Normal) SPUTUM CULTURE (45118) Ordered On: 20-Apr-2014 CULTURE, SPUTUM e coli Comments: see scanned doc (Normal) EYPJB-7-UUEIMKOCHHZ-TOTAL Ordered On: 29-May-2013 (82563) KWLLK-8-KVDFKVAVHBA-TOTAL see scanned doc (Normal) CYFWZ-9-FAJUOMOADWE-PHEN Ordered On: 29-May-2013 (09871) XCJCI-0-TSKCGLLGWKV-PHEN MM (Normal) IMMUN SUBCLAS-IGG1,2,3 & 4 Ordered On: 29-May-2013 (91497) IMMUN SUBCLAS-IGG1,2,3 & 4 see scanned doc (Normal) RHEUMATOID FACTOR-QUANT Ordered On: 29-May-2013 (52312) RHEUMATOID FACTOR-QUANT Range: 0 [iU] - 15 [iU] see scanned doc [iU] (Normal) ANCA C&P W/REFLEX (23609) Ordered On: 29-May-2013 ANCA - C see scanned doc (Normal) CBC & PLATELETS (AUTO) Ordered On: 29-May-2013 (01333) BLOOD COUNT, PLATELET, AUTOMATED see scanned doc [...] (Normal) IMMUNOGLOBULIN E (IgE) Ordered On: 29-May-2013 (87018) IMMUNOGLOBULIN E (IgE) Range: 0 mg/dL - 380 mg/dL see scanned doc mg/dL (Abnormal) ACID FAST CUL/SMEAR Ordered On: 17-May-2013 ACID FAST CUL/SMEAR See Comments: SPECIMEN DESCRIPTION Note (Normal) BRONCHIAL WASHINGSSPECIAL REQUESTS ...ACID FAST SMEAR NO ACID FAST BACILLI (CONCENTRATED SMEAR)CULTURE RESULTS NO ACID FAST BACILLI ISOLATED AFTER 8 WEEKSREPORT STATUS FINAL 07/12/2013Unless otherwise specified, testing performed by [facility] [address] [place] [address] 39406 FUNGUS CULTURE Ordered On: 17-May-2013 FUNGUS CULTURE See Note Comments: SPECIMEN DESCRIPTION (Normal) BRONCHIAL WASHINGSSPECIAL REQUESTS NONECULTURE RESULTS BROOKE ALBICANSREPORT STATUS FINAL 06/14/2013Unless otherwise specified, testing performed by [facility] [address] [place] [address] 47418 LEGIONELLA CULTURE Ordered On: 17-May-2013 LEGIONELLA CULTURE See Comments: SPECIMEN DESCRIPTION Note (Normal) BRONCHIAL WASHINGSSPECIAL REQUESTS NONECULTURE RESULTS CULTURE DISCONTINUED DUE TO BACTERIAL CONTAMINAT IONREPORT STATUS FINAL 05/19/2013Unless otherwise specified, testing performed by [facility] [address] [place] [address] 10710 LEGIONELLA DFA Ordered On: 17-May-2013 LEGIONELLA DFA See Note Comments: SPECIMEN DESCRIPTION (Normal) BRONCHIAL WASHINGSSPECIAL REQUESTS NONERESULT NEGATIVE FOR LEGIONELLA PNEUMOPHILA BY DFAREPORT STATUS FINAL 05/17/2013Unless otherwise specified, testing performed by [facility] [address] [place] [address] 65737 RESPIRATORY CULTURE Ordered On: 17-May-2013 RESPIRATORY CULTURE [...] <=1 SUSCEPTIBLEUnless otherwise specified, testing performed by [facility] [address] [place] [address] 02922 PT (PROTHROMBIN TIME) Ordered On: 12-May-2013 (84842) INR 0.95 (Normal) Comments: SUGGESTED THERAPEUTIC RANGES USING INR FORSTABILIZED ANTICOAGULATED PATIENTS:STANDARD DOSE THERAPY INR 2.0-3.0 DVT, PE, PREVENT DVT OR EMBOLISMHIGH DOSE THERAPY INR 2.5-3.5 PREVENT EMBOLISM FROM MECHANICAL HEART VALVEUnless otherwise specified, testing performed by [facility] [address] [place] [address] 52436 PT 10.5 {SEC} (Normal) Range: 9.2 {SEC} - 11.9 {SEC} PLATELET COUNT (39559) Ordered On: 12-May-2013 PLT 301 10*3/uL (Normal) Range: 150 10*3/uL - 400 10*3/uL Comments: Unless otherwise specified, testing performed by [facility] [address] [place] [address] 06265 PTT (ACTIVATED PARTIAL Ordered On: 12-May-2013 THROMBOPLASTIN TIME) (88460) APTT 27.1 {SEC} (Normal) Range: 22.0 {SEC} - 32.6 {SEC} Comments: Unless otherwise specified, testing performed by [facility] [place] [address] SKIN TEST INTRADERMAL TB Ordered On: 03-Mar-2013 Comments: LA LOT# [id number] EXP : (05194) 03/2014 SKIN TEST INTRADERMAL TB Comments: negative negative (Normal) [employer] (45147) Ordered On: 02-Mar-2013 Comments: x 3 TUBERCLE CULTURE negative Comments: also negative on 03/06 (Normal) and 03/07 samples collected SPUTUM CYTOLOGY (81944) Ordered On: 06-Mar-2013 SPUTUM CYTOLOGY negative Comments: on both 03/06 and 03/07 (Normal) samples collected SPUTUM CULTURE (42642) Ordered On: 02-Mar-2013 CULTURE, SPUTUM abnormal Comments: [...] Summary 05-Jun-2019 12:45 To 31-May-2019 8:49 Pulmonary [facility] Office Office Visit 05-Jun-2019 12:45 To 05-Jun-2019 12:42 Encounter Reason: ASTHMA, FOLLOW UP - The last clinic visit was 6 month(s) ago (And since that appointment the patient [facility] Office did have 3 courses of [...] using cpap nightly. home care company is [employer]. no issues and no snoring with cpap [...] ago. Management changes made at the last [facility] Office it include none (Except to [...] using cpap nightly. home care company is [employer] [facility]. no issues and no snoring with cpap on and feels more rested with use. 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 Saenz [facility]) and allergic rhinitis, while pertinent medical [...] Encounter Diagnosis: ASTHMA (Renamed from AIRWAY HYPERREACTIVITY) [facility] Office Order Only 20-Apr-2019 10:46 To 20-Apr-2019 10:49 Encounter Diagnosis: ACUTE BRONCHITIS [facility] Office Historical Summary 17-Nov-2018 13:45 To 17-Nov-2018 13:45 [facility] Office Office Visit 17-Nov-2018 13:45 To 17-Nov-2018 14:10 Encounter Reason: ASTHMA, FOLLOW UP - The last clinic visit was 4 month(s) ago (And since that appointment the patient [place] [facility] Office has seen infectious disease [...] using cpap nightly. home care company is [employer]. no issues and no snoring with cpap [...] ago (And since that appointment the patient [facility] Office has seen infectious disease August 23, [...] apnea, using cpap nightly. home care alexandra chino is [facility]. no issues and no snoring [...] To 29-Aug-2018 7:51 Encounter Diagnosis: IGG DEFICIENCY [facility] Office Order Only 16-Aug-2018 10:36 To 16-Aug-2018 10:40 Encounter Diagnosis: ACUTE BRONCHITIS [facility] Office Order Only 11-Aug-2018 11:01 To 11-Aug-2018 11:05 Encounter Diagnosis: ABNORMAL SPUTUM [facility] Office Visit 01-Aug-2018 9:30 To 02-Aug-2018 10:32 Encounter Reason: ASTHMA, FOLLOW UP - The last clinic visit was 2 month(s) ago. Management changes made at the last [facility] Office it include changing the dose [...] using cpap nightly. home care company is [facility]. no issues and no s noring with [...] To 29-Jul-2018 10:03 Encounter Diagnosis: ACUTE BRONCHITIS [facility] Office Medication Order 05-Jul-2018 15:48 To 05-Jul-2018 15:50 Encounter Diagnosis: ASTHMA (Renamed from AIRWAY HYPERREACTIVITY) [facility] Office Office Visit 08-Jun-2018 10:21 To 08-Jun-2018 13:45 Encounter Reason: ASTHMA, FOLLOW UP - The last clinic visit was 3 month(s) ago. No changes in management were made at [facility] Office he last visit. The patient's [...] By report there is good compliance with treat ent, good tolerance of treatment and fair [...] 16:39 Encounter Diagnosis: CARCINOID TUMOR OF LUNG [facility] Office Historical Summary 16-Feb-2018 11:38 To 16-Feb-2018 11:40 Encounter Reason: ASTHMA, FOLLOW UP - The last clinic visit was 3 month(s) ago. Management changes made at the last [facility] Office it include ordering tests. The [...] Historical Summary 16-Feb-2018 11:09 To 16-Feb-2018 11:09 [facility] Office Office Visit 16-Feb-2018 10:36 To 16-Feb-2018 12:04 Encounter Reason: ASTHMA, FOLLOW UP - The last clinic visit was 3 month(s) ago. Management changes made at the last vis [facility] it include ordering tests. [...] gained 10#. 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), while pertinent medical history does not include [...] Historical Summary 04-Feb-2018 14:15 To 04-Feb-2018 14:21 [facility] Office Order Only 17-Nov-2017 15:48 To 17-Nov-2017 15:51 Encounter Diagnosis: ABNORMAL FINDING ON LUNG IMAGING [facility] Office Office Visit 17-Nov-2017 13:49 To 17-Nov-2017 14:24 Encounter Reason: ASTHMA, FOLLOW UP - The last clinic visit was 9 month(s) ago (and has lost 9# since last seen, had ri [facility] ght knee surgery 2 weeks ago [...] changes made at the last [facility] it include none (except to use [...] Historical Summary 13-Nov-2017 10:06 To 13-Nov-2017 10:09 [facility] Order Only 03-May-2017 14:33 To 03-May-2017 14:35 Encounter Diagnosis: ASTHMA (Renamed from AIRWAY HYPERREACTIVITY) [facility] Office Historical Summary 05-Apr-2017 16:16 To 05-Apr-2017 16:23 Encounter Diagnosis: ASTHMA (Renamed from AIRWAY HYPERREACTIVITY) [facility] Office Medication Order 02-Apr-2017 11:02 To 02-Apr-2017 11:54 Encounter Diagnosis: ACUTE BRONCHITIS [facility] Office Office Visit 26-Feb-2017 8:56 To 26-Feb-2017 11:06 Encounter Reason: ASTHMA, FOLLOW UP - The last clinic visit was 3 month(s) ago (primary is Dr. Donte Mckinney). No changes [facility] Office in management were made at [...] To 08-Feb-2017 11:56 Encounter Diagnosis: ABNORMAL SPUTUM [facility] Office Historical Summary 04-Feb-2017 14:17 To 04-Feb-2017 14:21 Encounter Diagnosis: ASTHMA (Renamed from AIRWAY HYPERREACTIVITY) [facility] Office Order Only 30-Nov-2016 15:44 To 30-Nov-2016 15:45 Encounter Diagnosis: ASTHMA (Renamed from AIRWAY HYPERREACTIVITY) [facility] Office Office Visit 30-Nov-2016 15:01 To 30-Nov-2016 15:48 Encounter Reason: ASTHMA, FOLLOW UP - The last clinic visit was 3 month(s) ago (primary is Dr. Donte Mckinney). No changes [facility] Office in management were made [...] was 5 month(s) ago (and hospitalized in [place] 08/23-08/27/19 [facility] Office 17 with pneumonia and still not [...] as mild (to moderate) and worsening (since pneu madai and prior was doing well - had [...] Encounter Diagnosis: ABNORMAL FINDING ON LUNG IMAGING [facility] Office Order Only 03-Jan-2016 8:56 To 03-Jan-2016 10:08 Encounter Diagnosis: ABNORMAL FINDING ON LUNG IMAGING [facility] Office Office Visit 03-Jan-2016 8:04 To 03-Jan-2016 8:48 Encounter Reason: ASTHMA, FOLLOW UP - The last clinic visit was 1 month(s) ago (primary is Dr. Donte Mckinney). Management [facility] Office changes made at the [...] Encounter Diagnosis: ABNORMAL FINDING ON LUNG IMAGING [facility] Office Historical Summary 26-Nov-2015 14:51 To 26-Nov-2015 14:52 Encounter Reason: ASTHMA, FOLLOW UP - The last clinic visit was 3 month(s) ago (primary is Dr. Donte Mckinney). Management [facility] Office changes made at the last visit [...] ago (primary is Dr. Donte Mckinney). Management [facility] Office changes made at the last visit [...] ID consult with recommendation to consider inhaled JV. she tolerated this for two full courses [...] 11:02 Encounter Diagnosis: CARCINOID TUMOR OF LUNG [facility] Office Office Visit 26-Aug-2015 10:19 To 26-Aug-2015 14:58 Encounter Reason: ASTHMA, FOLLOW UP - The last clinic visit was 3 month(s) ago (primary is Dr. Donte Mckinney). Management [facility] Office changes made at the last visit [...] ago. Management changes made at the last [facility] Office t include none [...] is Dr. Donte Mckinney). No changes i [facility] Office n management were made at the [...] weeks ago. has been on medrol dose kednal from another provider since late last week, [...] Encounter Diagnosis: ASTHMA (Renamed from AIRWAY HYPERREACTIVITY) [facility] Office Order Only 22-Apr-2015 14:19 To 22-Apr-2015 14:23 Encounter Diagnosis: ABNORMAL FINDING ON LUNG IMAGING [facility] Office Historical Summary 19-Apr-2015 13:28 To 19-Apr-2015 13:31 [facility] Office Historical Summary 19-Apr-2015 12:53 To 19-Apr-2015 12:54 Encounter Reason: ASTHMA, FOLLOW UP - The last clinic visit was 6 month(s) ago (primary is Dr. Donte Mckinney, also seeing [facility] Dr. Knight). Management changes made at [...] on the vj compared to weeks off jv. just now on second cycle on the [...] (primary is Dr. Donte Mckinney, also seeing [facility] Dr. Knight). Management changes made at [...] (primary is Dr. Donte Mckinney, also seeing [facility] Dr. Knight). Management changes made at [...] Encounter Diagnosis: BACTERIAL INFECTION DUE TO PSEUDOMONAS [facility] Office Office Visit 02-Aug-2014 10:32 To 02-Aug-2014 16:02 Encounter Reason: ASTHMA, FOLLOW UP - The last clinic visit was 3 month(s) ago (primary is Dr. Donte Mckinney, also seeing [facility] Dr. Knight). Management changes made at [...] (primary is Dr. Donte Mckinney, also seeing [facility] Dr. Knight). Management changes made at [...] Encounter Diagnosis: ASTHMA (Renamed from AIRWAY HYPERREACTIVITY) [facility] Office Order Only 18-Apr-2014 15:07 To 18-Apr-2014 15:08 Encounter Diagnosis: BACTERIAL INFECTION DUE TO PSEUDOMONAS [facility] Office Medication Order 11-Apr-2014 14:55 To 11-Apr-2014 15:06 Encounter Diagnosis: BACTERIAL INFECTION DUE TO PSEUDOMONAS [facility] Office Office Visit 21-Mar-2014 9:37 To 21-Mar-2014 13:33 Encounter Reason: ASTHMA, FOLLOW UP - The last clinic visit was 3 month(s) ago (primary is Dr. Donte Mckinney, also seeing [facility] Dr. Knight). No changes [...] (primary is Dr. Donte Mckinney, also seeing [facility] Dr. Knight). No changes [...] Encounter Diagnosis: BACTERIAL INFECTION DUE TO PSEUDOMONAS [facility] Office Medication Order 01-Nov-2013 11:27 To 08-Nov-2013 17:51 Encounter Diagnosis: BACTERIAL INFECTION DUE TO PSEUDOMONAS [facility] Order Only 28-Jul-2013 15:54 To 28-Jul-2013 16:10 Encounter Diagnosis: ABNORMAL FINDING ON LUNG IMAGING [facility] Historical Summary 06-Jul-2013 14:42 To 06-Jul-2013 14:44 Encounter Reason: ASTHMA, FOLLOW UP - The last clinic visit was 1 month(s) ago (primary is Dr. Donte Mckinney, also seeing [facility] Dr. Knight). No changes [...] (primary is Dr. Donte Mckinney, also seeing [facility] Dr. Knight). No changes [...] (primary is Dr. Donte Mckinney, also seeing [facility] Dr. Knight). No changes [...] (primary is Dr. Donte Mckinney, also seeing [facility] Dr. Knight). No changes [...] (primary is Dr. Donte Mckinney, also seeing [facility] Dr. Knight). No changes [...] (primary is Dr. Donte Mckinney, also seeing [facility] Dr. Knight). No changes [...] Encounter Diagnosis: BACTERIAL INFECTION DUE TO PSEUDOMONAS [facility] Office Office Visit 12-May-2013 14:37 To 12-May-2013 15:37 Encounter Reason: ASTHMA, FOLLOW UP - The last clinic visit was 1 month(s) ago (primary is Dr. Donte Mckinney, also seeing [facility] Dr. Knight). No changes in management [...] (primary is Dr. Donte Mckinney, also seeing [place] [facility] blanca Knight). Management changes [...] (primary is Dr. Donte Mckinney, also seeing [facility] Dr. Knight). Management changes made at [...] Encounter Diagnosis: ASTHMA (Renamed from AIRWAY HYPERREACTIVITY) [facility] Office Medication Order 10-Mar-2013 12:38 To 10-Mar-2013 13:02 Encounter Diagnosis: BACTERIAL INFECTION DUE TO PSEUDOMONAS [facility] Office Order Only 03-Mar-2013 10:58 To 07-Mar-2013 16:05 Encounter Diagnosis: ABNORMAL FINDING ON LUNG IMAGING [facility] Office Visit 02-Mar-2013 15:20 To 02-Mar-2013 16:32 Encounter Reason: ASTHMA, FOLLOW UP - The last clinic visit was 7 month(s) ago (primary is Dr. Donte Mckinney). Management [facility] Office changes made at the last visit [...] ago (primary is Dr. Donte Mckinney). Management [facility] Office changes made at the last visit [...] on cpap nightly. home care company is [employer]. gets supplies prn. able to wear cpap [...] (primary is Dr. Donte Mckinney). No changes [facility] Office in management were made at [...] on cpap nightly. home care company is [employer]. gets supplies prn. ab le to wear cpap all night without any respiratory symptoms. feels more rested with use), allergic rhinitis and gastroesophageal reflux. denies recent hospitalizations. Encounter Diagnosis: PULMONARY NODULE (518.89) , ASTHMA (493.90), PABLITO (OBSTRUCTIVE SLEEP APNEA) (327.23), OBESITY (278.00), AR (ALLERGIC RHINITIS) (477.9), GERD (GASTROESOPHAGEAL REFLUX DISEASE) (530.81) Medication Order 30-Jun-2012 17:24 To 30-Jun-2012 17:26 Encounter Diagnosis: ASTHMA (493.90) [facility] Office Office Visit 04-Feb-2012 14:33 To 04-Feb-2012 15:23 Encounter Reason: Asthma follow up - The last clinic visit was 6 month(s) ago. No changes in management were made at [facility] Office he last visit. Symptoms include shortness [...] includes CPAP therapy (home care company is [employer], mask fits, has humidity. gets mask/supplies prn). [...] changes made at the last [facility] Office it include adding symbicort 160/4.5 and [...] Historical Summary 03-Aug-2011 19:22 To 03-Aug-2011 19:23 [facility] Office Medication Order 09-Jul-2011 8:23 To 09-Jul-2011 8:26 Encounter Diagnosis: AR (ALLERGIC RHINITIS) ( 477.9) [facility] Office Office Visit 01-May-2011 10:18 To 01-May-2011 11:38 Encounter Reason: Sleep Follow Up PHP - The sleep disorder is characterized as obstructive sleep apnea. The last clinic [facility] Office visit was 6 month(s) ago. Management [...] Historical Summary 30-Apr-2011 11:48 To 30-Apr-2011 12:19 [facility] Office Payers [place] [address] [facility] [address] [place] Group Number: [id number] tel: [employer] [address] [address] [place] [address] [place] Group Number: NONE tel: RICIHE HADDAD [address] [place] [id number] tel:
--- OUTSIDE RECORDS SUMMARY | 2019-07-13 12:32 | XMS REPORT | Continuity of Care Document ---
:1935 Author Name Professor Of Communication Arts, System Address Unavailable Unavailable , Care Team Providers Name Role Phone Faye DUFFY, Donte Unavailable Denver Hudson DO Unavailable NATALYA DUFFY, LASHAY Lugo Unavailable Antonia DUFFY, Salu Brady Unavailable Ranulfo DUFFY, Maryann Unavailable HOACSHAZIA, Hematology DIrect Address Unavailable Unavailable LawEdmundo M Unavailable Floyd DUFFY, Amisha Caldwell Unavailable Tasha DPM, Main Unavailable Davin VACUUM PAN OPERATOR, Yvette Unavailable Unavailable Marlyn MSN, NPC, Gregoria Unavailable Margo VACUUM PAN OPERATOR, Yael Unavailable Unavailable Loveless VACUUM PAN OPERATOR, Ally Unavailable Unavailable Krystina LRT, Guero Unavailable Unavailable Michael VACUUM PAN OPERATOR, Pancho Unavailable Unavailable Reginald SKIDDER OPERATOR, Reji Unavailable Unavailable Cristopher VACUUM PAN OPERATOR, December Unavailable Unavailable Taylor VACUUM PAN OPERATOR, Briseida Unavailable Unavailable More LRT, Tera Unavailable Unavailable Beryannein VACUUM PAN OPERATOR, Kobe Unavailable Unavailable Elizabeth Msn Npc, Mela [...] Tablet; 1 daily (10 MG) CALCIUM-VITAMIN D, [id number] (Oral Tablet); three times daily (250-125 MG-UNIT) [...] 0 Comments: 30mg po x 2 days, [id number] po x 2 days [id number] po x 2 days, then stop Qvar [...] EXHALED NITRIC OXIDE MEASUREMENT Status: Completed 05-Jun-2019 (19980) EXHALED NITRIC OXIDE MEASUREMENT Date: 01-Aug-2018 Status: Completed 2018 (58994) AIRFLOW RESISTANCE MEASUREMENT: Status: Completed 17-Nov-2018 PULM FUNCT TEST OSCILLOMETRY (05042) THORACIC GAS VOLUME: AIRWAY Status: Completed 17-Nov-2018 CLOSING VOLUME MEASUREMENT: PULM FUNCTION TEST BY GAS (30464) TOTAL VITAL CAPACITY (41191) Status: Completed 17-Nov-2018 MEASUREMENT OF NITRIC Status: Completed 17-Nov-2018 OXIDE (30709) MEASUREMENT OF NITRIC Status: Completed 08-Jun-2018 OXIDE (53385) RESPIRATORY FLOW VOLUME LOOP Status: Completed 08-Jun-2018 (41814) TOTAL VITAL CAPACITY (12591) Status: Completed 16-Feb-2018 TOTAL BODY PLETHYSMOGRAPHY: Status: Completed 16-Feb-2018 AIRFLOW RESISTANCE MEASUREMENT (26129) THORACIC GAS VOLUME: AIRWAY Status: Completed 16-Feb-2018 CLOSING VOLUME MEASUREMENT: PULM FUNCTION TEST BY GAS (91401) RESPIRATORY FLOW VOLUME LOOP Status: Completed 16-Feb-2018 (00376) DLCO (CARBON MONOXIDE DIFFUSING Status: Completed 16-Feb-2018 CAPACITY) (81064) AIRFLOW RESISTANCE MEASUREMENT: Status: Completed 16-Feb-2018 PULM FUNCT TEST OSCILLOMETRY (48022) PRE AND POST (90137) Status: Completed 16-Feb-2018 RESPIRATORY FLOW VOLUME LOOP Status: Completed 17-Nov-2017 (35466) TOTAL VITAL CAPACITY (61559) Status: Completed 26-Feb-2017 TOTAL BODY PLETHYSMOGRAPHY (41426) Status: Completed 26-Feb-2017 TGV THORACIC GAS VOLUME: AIRWAY Status: Completed 26-Feb-2017 CLOSING VOLUME MEASUREMENT: PULM FUNCTION TEST BY GAS (37635) RESPIRATORY FLOW VOLUME LOOP Status: Completed 26-Feb-2017 (10442) DLCO (CARBON MONOXIDE DIFFUSING Status: Completed 26-Feb-2017 CAPACITY) (71477) AIRFLOW RESISTANCE MEASUREMENT: Status: Completed 26-Feb-2017 PULM FUNCT TEST OSCILLOMETRY (33423) PRE AND POST (82370) Status: Completed 26-Feb-2017 RESPIRATORY FLOW VOLUME LOOP Status: Completed 09-Sep-2016 (26627) PRE AND POST (84457) Status: Completed 09-Sep-2016 TOTAL VITAL CAPACITY (84435) Status: Completed 17-Apr-2016 TOTAL BODY PLETHYSMOGRAPHY (84877) Status: Completed 17-Apr-2016 TGV THORACIC GAS VOLUME: AIRWAY Status: Completed 17-Apr-2016 CLOSING VOLUME MEASUREMENT: PULM FUNCTION TEST BY GAS (84877) RESPIRATORY FLOW VOLUME LOOP Status: Completed 17-Apr-2016 (41428) DLCO (CARBON MONOXIDE DIFFUSING Status: Completed 17-Apr-2016 CAPACITY) (24299) AIRFLOW RESISTANCE MEASUREMENT: Status: Completed 17-Apr-2016 PULM FUNCT TEST OSCILLOMETRY (06601) PRE AND POST (36544) Status: Completed 17-Apr-2016 RESPIRATORY FLOW VOLUME LOOP Status: Completed 26-Nov-2015 (99121) TOTAL VITAL CAPACITY (98453) Status: Completed 26-Aug-2015 TOTAL BODY PLETHYSMOGRAPHY (89763) Status: Completed 26-Aug-2015 TGV THORACIC GAS VOLUME: AIRWAY Status: Completed 26-Aug-2015 CLOSING VOLUME MEASUREMENT: PULM FUNCTION TEST BY GAS (68861) RESPIRATORY FLOW VOLUME LOOP Status: Completed 26-Aug-2015 (32732) DLCO (CARBON MONOXIDE DIFFUSING Status: Completed 26-Aug-2015 CAPACITY) (25171) AIRFLOW RESISTANCE MEASUREMENT: Status: Completed 26-Aug-2015 PULM FUNCT TEST OSCILLOMETRY (00062) PRE AND POST (01699) Status: Completed 26-Aug-2015 AIRFLOW RESISTANCE MEASUREMENT: Status: Completed 19-Apr-2015 PULM FUNCT TEST OSCILLOMETRY (48606) TOTAL VITAL CAPACITY (95752) Status: Completed 19-Apr-2015 TOTAL BODY PLETHYSMOGRAPHY: AIRWAY Status: Completed 19-Apr-2015 CLOSING VOLUME MEASUREMENT: PULM FUNCT TST PLETHYSMOGRAP (87873) RESPIRATORY FLOW VOLUME LOOP Status: Completed 19-Apr-2015 (74836) THORACIC GAS VOLUME: AIRWAY Status: Completed 19-Apr-2015 CLOSING VOLUME MEASUREMENT: PULM FUNCTION TEST BY GAS (32036) DLCO (CARBON MONOXIDE DIFFUSING Status: Completed 19-Apr-2015 CAPACITY) (31420) PRE AND POST (87580) Status: Completed 19-Apr-2015 RESPIRATORY FLOW VOLUME LOOP Status: Completed 02-Aug-2014 (90050) PRE AND POST (83188) Status: Completed 02-Aug-2014 RESPIRATORY FLOW VOLUME LOOP Status: Completed 21-Mar-2014 (26216) PRE AND POST (40203) Status: Completed 21-Mar-2014 MEDICARE RX CODE: AT LEAST ONE Status: Completed 29-May-2013 PRESCRIPTION CREATED DURING THE ENCOUNTER WAS GENERATED AND TRANSMITTED ELECTRONICALLY USING A QUALIFIED ERX SYSTEM (G8553) RESPIRATORY FLOW VOLUME LOOP Status: Completed 10-Apr-2013 (72220) PRE AND POST (86010) Status: Completed 10-Apr-2013 RESPIRATORY FLOW VOLUME LOOP Status: Completed 02-Mar-2013 (99826) SPIROMETRY WITH BRONCHODILATOR Status: Completed 02-Mar-2013 (15186) MEDICARE RX CODE: AT LEAST ONE Status: Completed 07-Oct-2012 PRESCRIPTION CREATED DURING THE ENCOUNTER WAS GENERATED AND TRANSMITTED ELECTRONICALLY USING A QUALIFIED ERX SYSTEM (G8553) REST/EXERCISE OXIMETRY (81420) Status: Completed 07-Oct-2012 RESPIRATORY FLOW VOLUME LOOP Status: Completed 07-Oct-2012 (70928) PRE AND POST W/ RT (88709) Status: Completed 07-Oct-2012 ACT Status: Completed 03-Feb-2011 [...] pleural scar in RML PRE AND POST (67857)Result: Hemoptysis: No Status: Completed 17-Nov-2018 CAT SCAN OF CHEST: CT THORAX W/O DYE (34927)Result: Status: Completed 2018 Are you or could you become ?: No; When was you last CXR/CT?: over week ago; Cardiopulmonary Supervisor: JUAN Booth PRE AND POST ([id number])Result: Hemoptysis: No Status: Completed 01-Aug-2018 PRE AND POST (13705)Result: Hemoptysis: No Status: Completed 08-Jun-2018 CAT SCAN OF CHEST: CT THORAX W/O DYE (21528)Result: Status: Completed 2017 Are you or could you become ?: No; When was you last CXR/CT?: over a week ago; Cardiopulmonary Supervisor: Piper Chopra, LRT PRE AND POST ([id number])Result: Hemoptysis: No Status: Completed 17-Nov-2017 CHEST X-RAY, PA AND LATERAL (57480)Result: Are you Status: Completed 2016 or could you become ?: No; When was you last CXR/CT?: over week ago; Cardiopulmonary Supervisor: Tera Bundy, LRT CHEST X-RAY, PA AND LATERAL ([id number])Result: Are you Date: 30-Nov-2016 or could you become ?: No; When was Status: Completed 2016 you last CXR/CT?: over week ago; Cardiopulmonary Supervisor: Tera Bundy, LRT CHEST X-RAY, PA AND LATERAL ([id number])Result: Are you Date: 30-Nov-2016 or could you become ?: No; When was Status: Completed 2016 you last CXR/CT?: over week ago; Cardiopulmonary Supervisor: Comments: today at [facility] Tera Bundy, LRT CHEST X-RAY, PA AND LATERAL ([id number])Result: Are you Status: Completed 2016 or could you become ?: No; When was you last CXR/CT?: OVER WEEK AGO; Cardiopulmonary Supervisor: Tera Bundy, LRT CT THORAX W/O DYE ([id number])Result: Are you or Status: Completed could you become ?: No; When was you last CXR/CT?: over week ago; Cardiopulmonary Supervisor: Tera Bundy, LRT CT THORAX W/O DYE ([id number])Result: Are you or Status: Completed could you become ?: No; When was you last CXR/CT?: OVER WEEK AGO; Cardiopulmonary Supervisor: Tera Bundy, LRT CHEST X-RAY, PA AND LATERAL ([id number])Result: Are you Status: Completed 2015 or could you become ?: No; When was you last CXR/CT?: over week ago; Cardiopulmonary Supervisor: Tera Bundy, LRT PRE AND POST ([id number])Result: Hemoptysis: No Status: Completed 26-Nov-2015 CT THORAX W/O DYE (34431)Result: Are you or Status: Completed 2015 could you become ?: No; When was you last CXR/CT?: over a week ago; Cardiopulmonary Supervisor: Tera Bundy, LRT CAT SCAN OF CHEST: CT THORAX W/O DYE ([id number])Result: Status: Completed 2014 Are you or could you become ?: No; When was you last CXR/CT?: over a week ago; Cardiopulmonary Supervisor: Tera Bundy, LRT CAT SCAN OF CHEST: CT THORAX W/O DYE ([id number])Result: Status: Completed 2014 Are you or could you become ?: No; When was you last CXR/CT?: 2014; Cardiopulmonary Supervisor: Guero Flaherty, LRT CAT SCAN OF CHEST: CT THORAX W/O DYE ([id number])Result: Status: Completed 2014 Are you or could you become ?: No; When was you last CXR/CT?: OVER 1 WEEK AGO; Cardiopulmonary Supervisor: Tera Bundy, LRT CT THORAX W/O DYE ([id number])Result: Are you or Status: Completed could you become ?: No; When was you last CXR/CT?: 04/01; Cardiopulmonary Supervisor: Guero Flaherty, LRT CHEST X-RAY, PA AND LATERAL ([id number])Result: Are you Status: Completed 2013 or could you become ?: No; When was you last CXR/CT?: over 2 months ago; Cardiopulmonary Supervisor: Tera Bundy, LRT CT THORAX W/O DYE ([id number])Result: Are you or Status: Completed 2013 could you become ?: No; When was you last CXR/CT?: last month; Cardiopulmonary Supervisor: Tera Bundy, LRT CT THORAX W/O DYE ([id number])Result: Are you or Date: 21-Nov-2013 could you become ?: No; When was you last Status: Completed 2013 CXR/CT?: last month; Cardiopulmonary Supervisor: Guero Flaherty, LRT CAT SCAN OF CHEST: CT THORAX W/O DYE ([id number])Result: Status: Completed 2012 Are you or could you become ?: No; Cardiopulmonary Supervisor: Rosalinda Rodriguez LPN CT THORAX W/O DYE ([id number])Result: Are you or Status: Completed 2012 could you become ?: No; Cardiopulmonary Supervisor: JUAN Booth ACT: ASSESSMENT OF DISEASE: ASTHMA [...] Score: 17 CHEST X-RAY, PA AND LATERAL (90811)Result: Are you Status: Completed 2012 or could you become ?: No; Cardiopulmonary Supervisor: JUAN Booth Asthma Control Test (ACT)Result: [Questions] [...] Score] Score: 19 RESPIRATORY FLOW VOLUME LOOP (68806)Result: Date: 04-Aug-2011 Hemoptysis: No; Medication Used: Albuterol 0.083% kendell aerosol; Net Web Application Developer: Reji Montelongo RRT RESPIRATORY FLOW VOLUME LOOP (45715)Result: Date: 01-May-2011 Hemoptysis: No; Medication Used: Albuterol 0.083% kendell aerosol; Net Web Application Developer: Yael Aragon LPN Immunizations Influenza (3 years [...] Skin Test, Intradermal On: 03-Mar-2013 Lot #: [id number] Family History Allergic Rhinitis Status: Active Comments: Father. Emphysema Status: Active Comments: Father. Social History Alcohol use: Occasional alcohol use. Current work status: Retired. Marital status: . No caffeine use No drug use Tobacco use: Never smoker. Never smoker Female Plan of Treatment CAT SCAN OF CHEST: CT THORAX W/O DYE Start: 05-Jul-2019 Intent (00553) REST OXIMETRY (50144) Start: 05-Jun-2019 Intent SIMPLE PFT: BASELINE PULMONARY Start: 05-Jun-2019 Intent FUNCTION TEST (PFT) (23773) REST OXIMETRY (53980) Start: 17-Nov-2018 Intent CONTINUOUS OVERNIGHT OXIMETRY Start: 08-Jun-2018 Intent (32417) Comments: on cpap REST OXIMETRY (86133) Start: 16-Feb-2018 Intent EXHALED NITRIC OXIDE MEASUREMENT Start: 17-Nov-2017 Intent (55321) Comments: Evaluated patient's nitric oxide. The results were 16 ppb RESPIRATORY FLOW VOLUME LOOP (21424) Start: 30-Nov-2016 Intent SIMPLE PFT: BASELINE PULMONARY Start: 30-Nov-2016 Intent FUNCTION TEST (PFT) (21103) REST OXIMETRY (00370) Start: 09-Sep-2016 Intent REST OXIMETRY (75251) Start: 26-Nov-2015 Intent REST OXIMETRY (95620) Start: 19-Apr-2015 Intent RESPIRATORY FLOW VOLUME LOOP (17148) Start: 11-Oct-2014 Intent PRE AND POST (99160) Start: 11-Oct-2014 Intent REST/ EXERCISE OXIMETRY (12091) Start: 21-Nov-2013 Intent TOTAL VITAL CAPACITY (81966) Start: 21-Nov-2013 Intent TOTAL BODY PLETHYSMOGRAPHY (28721) Start: 21-Nov-2013 Intent TGV THORACIC GAS VOLUME: AIRWAY Start: 21-Nov-2013 Intent CLOSING VOLUME MEASUREMENT: PULM FUNCTION TEST BY GAS (43745) RESPIRATORY FLOW VOLUME LOOP (50992) Start: 21-Nov-2013 Intent DLCO (CARBON MONOXIDE DIFFUSING Start: 21-Nov-2013 Intent CAPACITY) (97228) AIRFLOW RESISTANCE MEASUREMENT: PULM Start: 21-Nov-2013 Intent FUNCT TEST OSCILLOMETRY (98217) PRE AND POST (50752) Start: 21-Nov-2013 Intent REST OXIMETRY (04597) Start: 06-Jul-2013 Intent RESPIRATORY FLOW VOLUME LOOP (45766) Start: 06-Jul-2013 Intent PRE AND POST (76577) Start: 06-Jul-2013 Intent BRONCHOSCOPY IN ENDO (29192) Start: 12-May-2013 Intent REST/ EXERCISE OXIMETRY (94194) Start: 02-Mar-2013 Intent ACT: ASSESSMENT OF DISEASE: ASTHMA Start: 02-Mar-2013 Intent SYMPTOMS EVALUATE (1005F) REST/EXERCISE OXIMETRY (13748) Start: 08-Aug-2012 Intent RESPIRATORY FLOW VOLUME LOOP (35038) Start: 08-Aug-2012 Intent PRE/POST (94774) Start: 08-Aug-2012 Intent RESPIRATORY FLOW VOLUME LOOP (31648) Start: 04-Feb-2012 Intent EXERCISE OXIMETRY (46987) Start: 04-Feb-2012 Intent REST OXIMETRY (14410) Start: 04-Feb-2012 Intent PRE/POST (95834) Start: 04-Feb-2012 Intent PRE/POST W/ RT (18714) Start: 04-Aug-2011 Intent REST OXIMETRY (07071) Start: 04-Aug-2011 Intent EXERCISE OXIMETRY (72742) Start: 04-Aug-2011 Intent Pre/Post (30764) Start: 01-May-[address]; [address] SCAN CHEST - Start: 01-Aug-2019 13:00 [facility]ointment [facility]; FULL PFT 30 - R/O, FeNo Start: 01-Aug-2019 13:15 Appointment Request [facility]monary [facility] Resp [facility]; FOLLOW UP 15 - Fu 15, Full, FeNo, R/O, CT Start: 01-Aug-2019 14:15 Appointment [facility] DO Denver Hudson [employer] (37637) Start: 05-Jun-2019 12:32 Request SPUTUM CULTURE (59259) Start: 05-Jun-2019 12:32 Request SPUTUM CULTURE (58811) Start: 20-Apr-2019 10:48 Request BUN (BLOOD UREA NITROGEN) (84487) Start: 16-Aug-2018 10:40 Request CREATININE BLOOD (58894) Start: 16-Aug-2018 10:40 Request SPUTUM CULTURE (45614) Start: 11-Aug-2018 11:01 Request SPUTUM CULTURE (66208) Start: 29-Jul-2018 10:01 Request CANDACE SCREEN (63992) Start: 17-Nov-2017 14:20 Request RHEUMATOID FACTOR-QUANT (95037) Start: 17-Nov-2017 14:20 Request SED RATE ERYTHROCYTE (75688) Start: 17-Nov-2017 14:20 Request Comments: ICD 279.49 RHEUMATOID FACTOR-QUANT (58425) Start: 17-Nov-2017 14:19 Request WDNYS-7-XEDFETARLRT-TOTAL (08934) Start: 17-Nov-2017 14:19 Request KOGCG-2-ONPKWMXHUDK-PHEN (36207) Start: 17-Nov-2017 14:19 Request QUANTATATIVE IMMUNOGLOBULINS (40160) Start: 17-Nov-2017 14:15 Request IMMUNOGLOBULIN E (IgE) (69045) Start: 17-Nov-2017 14:15 Request CBC, PLATELETS & AUT DIFF (75736) Start: 17-Nov-2017 14:15 Request SPUTUM CULTURE (31730) Start: 03-May-2017 14:34 Request CBC, PLATELETS & AUT DIFF (54920) Start: 26-Feb-2017 10:15 Request QUANTATATIVE IMMUNOGLOBULINS (73553) Start: 26-Feb-2017 10:15 Request IMMUNOGLOBULIN E (IgE) (11953) Start: 26-Feb-2017 10:15 Request ASTHMA (Renamed from [...] PSEUDOMONAS : Start flutter device- faxed to [employer] Indication:BACTERIAL INFECTION DUE TO PSEUDOMONAS ASTHMA (Renamed from AIRWAY HYPERREACTIVITY) : Continue with Spiriva with 2.5mcg samples to replace low dose for a trial Indication:ASTHMA (Renamed from AIRWAY HYPERREACTIVITY) OBSTRUCTIVE SLEEP APNEA : Change to auto titrating CPAP- faxed to [employer] already Indication:OBSTRUCTIVE SLEEP APNEA ASTHMA (Renamed from [...] Results IMMUNOGLOBULIN E (IgE) Ordered On: 05-Jun-2019 (07820) IGE @ 565 kU/L (Abnormal) Comments: Unless otherwise specified, testing performed by [facility] [address] [place] [address] 31291 CBC, PLATELETS & AUT DIFF Ordered On: 05-Jun-2019 (08057) BASO # 0.0 10*3/uL Range: 0.0 10*3/uL - 0.2 10*3/uL (Normal) Comments: Unless otherwise specified, testing performed by [facility] [address] [place] [address] 30561 EOS # 0.0 10*3/uL Range: 0.0 10*3/uL [...] 10*3/uL (Abnormal) QUANTATATIVE Ordered On: 05-Jun-2019 IMMUNOGLOBULINS (23667) IGM @ 117 mg/dL (Normal) Range: 40 mg/dL - 248 mg/dL Comments: Unless otherwise specified, testing performed by [facility] [address] [place] [address] 33401 IGA @ 352 mg/dL (Normal) Range: 71 mg/dL - 374 mg/dL IGG @ 828 mg/dL (Normal) Range: 700 mg/dL - 1600 mg/dL SPUTUM CULTURE (66743) Ordered On: 09-May-2014 CULTURE, SPUTUM pseudomonas (Normal) SPUTUM CULTURE (23253) Ordered On: 20-Apr-2014 CULTURE, SPUTUM e coli Comments: see scanned doc (Normal) UGUIF-5-FZUPBBARNBR-TOTAL Ordered On: 29-May-2013 (05768) TGGDA-1-KWUPBMEYUPM-TOTAL see scanned doc (Normal) SOZWH-3-VSNQIBYJKTT-PHEN Ordered On: 29-May-2013 (68798) CPVTD-8-NJHHCEEKOXK-PHEN MM (Normal) IMMUN SUBCLAS-IGG1,2,3 & 4 Ordered On: 29-May-2013 (77534) IMMUN SUBCLAS-IGG1,2,3 & 4 see scanned doc (Normal) RHEUMATOID FACTOR-QUANT Ordered On: 29-May-2013 (35025) RHEUMATOID FACTOR-QUANT Range: 0 [iU] - 15 [iU] see scanned doc [iU] (Normal) ANCA C&P W/REFLEX (35824) Ordered On: 29-May-2013 ANCA - C see scanned doc (Normal) CBC & PLATELETS (AUTO) Ordered On: 29-May-2013 (19275) BLOOD COUNT, PLATELET, AUTOMATED see scanned doc [...] (Normal) IMMUNOGLOBULIN E (IgE) Ordered On: 29-May-2013 (74227) IMMUNOGLOBULIN E (IgE) Range: 0 mg/dL - 380 mg/dL see scanned doc mg/dL (Abnormal) ACID FAST CUL/SMEAR Ordered On: 17-May-2013 ACID FAST CUL/SMEAR See Comments: SPECIMEN DESCRIPTION Note (Normal) BRONCHIAL WASHINGSSPECIAL REQUESTS ...ACID FAST SMEAR NO ACID FAST BACILLI (CONCENTRATED SMEAR)CULTURE RESULTS NO ACID FAST BACILLI ISOLATED AFTER 8 WEEKSREPORT STATUS FINAL 07/12/2013Unless otherwise specified, testing performed by [facility] [address] [place] [address] 28755 FUNGUS CULTURE Ordered On: 17-May-2013 FUNGUS CULTURE See Note Comments: SPECIMEN DESCRIPTION (Normal) BRONCHIAL WASHINGSSPECIAL REQUESTS NONECULTURE RESULTS BROOKE ALBICANSREPORT STATUS FINAL 06/14/2013Unless otherwise specified, testing performed by [facility] [address] [place] [address] 02239 LEGIONELLA CULTURE Ordered On: 17-May-2013 LEGIONELLA CULTURE See Comments: SPECIMEN DESCRIPTION Note (Normal) BRONCHIAL WASHINGSSPECIAL REQUESTS NONECULTURE RESULTS CULTURE DISCONTINUED DUE TO BACTERIAL CONTAMINAT IONREPORT STATUS FINAL 05/19/2013Unless otherwise specified, testing performed by [facility] [address] [place] [address] 18794 LEGIONELLA DFA Ordered On: 17-May-2013 LEGIONELLA DFA See Note Comments: SPECIMEN DESCRIPTION (Normal) BRONCHIAL WASHINGSSPECIAL REQUESTS NONERESULT NEGATIVE FOR LEGIONELLA PNEUMOPHILA BY DFAREPORT STATUS FINAL 05/17/2013Unless otherwise specified, testing performed by [facility] [address] [place] [address] 65936 RESPIRATORY CULTURE Ordered On: 17-May-2013 RESPIRATORY CULTURE [...] <=1 SUSCEPTIBLEUnless otherwise specified, testing performed by [facility] [address] [place] [address] 13301 PT (PROTHROMBIN TIME) Ordered On: 12-May-2013 (07481) INR 0.95 (Normal) Comments: SUGGESTED THERAPEUTIC RANGES USING INR FORSTABILIZED ANTICOAGULATED PATIENTS:STANDARD DOSE THERAPY INR 2.0-3.0 DVT, PE, PREVENT DVT OR EMBOLISMHIGH DOSE THERAPY INR 2.5-3.5 PREVENT EMBOLISM FROM MECHANICAL HEART VALVEUnless otherwise specified, testing performed by [facility] [address] [place] [address] 93111 PT 10.5 {SEC} (Normal) Range: 9.2 {SEC} - 11.9 {SEC} PLATELET COUNT (78878) Ordered On: 12-May-2013 PLT 301 10*3/uL (Normal) Range: 150 10*3/uL - 400 10*3/uL Comments: Unless otherwise specified, testing performed by [facility] [place] [address] PTT (ACTIVATED PARTIAL Ordered On: 12-May-2013 THROMBOPLASTIN TIME) (57224) APTT 27.1 {SEC} (Normal) Range: 22.0 {SEC} - 32.6 {SEC} Comments: Unless otherwise specified, testing performed by [facility] [place] [address] SKIN TEST INTRADERMAL TB Ordered On: 03-Mar-2013 Comments: LA LOT# [id number] EXP : (72490) 03/2014 SKIN TEST INTRADERMAL TB Comments: negative negative (Normal) [employer] (88228) Ordered On: 02-Mar-2013 Comments: x 3 TUBERCLE CULTURE negative Comments: also negative on 03/06 (Normal) and 03/07 samples collected SPUTUM CYTOLOGY (98616) Ordered On: 06-Mar-2013 SPUTUM CYTOLOGY negative Comments: on both 03/06 and 03/07 (Normal) samples collected SPUTUM CULTURE (86749) Ordered On: 02-Mar-2013 CULTURE, SPUTUM abnormal Comments: [...] Summary 05-Jun-2019 12:45 To 31-May-2019 8:49 Pulmonary [facility] Office Office Visit 05-Jun-2019 12:45 To 05-Jun-2019 12:42 Encounter Reason: ASTHMA, FOLLOW UP - The last clinic visit was 6 month(s) ago (And since that appointment the patient Pulmonary [facility] Office did have 3 courses of antibiotics [...] using cpap nightly. home care company is [employer]. no issues and no snoring with cpap [...] ago. Management changes made at the last [facility] Office it include none (Except to hold [...] using cpap nightly. home care company is [employer]. no issues and no snoring with cpap on and feels more rested with use. 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] ago. The episodes occur daily (with recur nola URI. has recently been on cipro and [...] the home, tobacco smoke or animal dander. Office Visit 17-Nov-2018 13:45 To 17-Nov-2018 14:10 Encounter Reason: ASTHMA, FOLLOW UP - The last clinic visit was 4 month(s) ago (And since that appointment the [facility] Office has seen infectious disease [...] gy shots q [address] Kngiht), while associated symptoms do not include fever. [...] using cpap nightly. home care company is [employer]. no issues and no snoring with cpap [...] Historical Summary 17-Nov-2018 13:45 To 17-Nov-2018 13:45 [facility] Transition of Care 29-Aug-2018 7:49 To 29-Aug-2018 7:51 Encounter Diagnosis: IGG DEFICIENCY [facility] Office Order Only 16-Aug-2018 10:36 To 16-Aug-2018 10:40 Encounter Diagnosis: ACUTE BRONCHITIS [facility] Office Order Only 11-Aug-2018 11:01 To 11-Aug-2018 11:05 Encounter Diagnosis: ABNORMAL [facility] Office Visit 01-Aug-2018 9:30 To 02-Aug-2018 10:32 Encounter Reason: ASTHMA, FOLLOW UP - The last clinic visit was 2 month(s) ago. Management changes made at the last [facility] Office it include changing the dose of [...] using cpap nightly. home care company is [employer]. no issues and no s noring with [...] To 29-Jul-2018 10:03 Encounter Diagnosis: ACUTE BRONCHITIS [facility] Office Medication Order 05-Jul-2018 15:48 To 05-Jul-2018 15:50 Encounter Diagnosis: ASTHMA (Renamed from AIRWAY HYPERREACTIVITY) [facility] Office Office Visit 08-Jun-2018 10:21 To 08-Jun-2018 13:45 Encounter Reason: ASTHMA, FOLLOW UP - The last clinic visit was 3 month(s) ago. No changes in management were made at [facility] Office he last visit. [...] By report there is good compliance with [facility] ent, good tolerance of treatment and [...] 16:39 Encounter Diagnosis: CARCINOID TUMOR OF LUNG [facility] Office Historical Summary 16-Feb-2018 11:38 To 16-Feb-2018 11:40 Encounter Reason: ASTHMA, FOLLOW UP - The last clinic visit was 3 month(s) ago. Management changes made at the last [facility] Office it include ordering tests. The [...] Historical Summary 16-Feb-2018 11:09 To 16-Feb-2018 11:09 [facility] Office Visit 16-Feb-2018 10:36 To 16-Feb-2018 12:04 Encounter Reason: ASTHMA, FOLLOW UP - The last clinic visit was 3 month(s) ago. Management changes made at the last vis [facility] it include ordering tests. [...] Historical Summary 04-Feb-2018 14:15 To 04-Feb-2018 14:21 [facility] Office Order Only 17-Nov-2017 15:48 To 17-Nov-2017 15:51 Encounter Diagnosis: ABNORMAL FINDING ON LUNG IMAGING [facility] Office Office Visit 2-May-2018 13:49 To 17-Nov-2017 14:24 Encounter Reason: ASTHMA, FOLLOW UP - The last clinic visit was 9 month(s) ago (and has lost 9# since last seen, had ri [facility] Office ght knee surgery 2 weeks [...] ago. Management changes made at the last [facility] Office it include none (except to [...] allergy shots q [address] Knigth), while associated symptoms do not include fever [...] Historical Summary 13-Nov-2017 10:06 To 13-Nov-2017 10:09 [facility] Office Order Only 03-May-2017 14:33 To 03-May-2017 14:35 Encounter Diagnosis: ASTHMA (Renamed from AIRWAY HYPERREACTIVITY) [facility] Office Historical Summary 05-Apr-2017 16:16 To 05-Apr-2017 16:23 Encounter Diagnosis: ASTHMA (Renamed from AIRWAY HYPERREACTIVITY) [facility] Office Medication Order 02-Apr-2017 11:02 To 02-Apr-2017 11:54 Encounter Diagnosis: ACUTE BRONCHITIS [facility] Office Office Visit 26-Feb-2017 8:56 To 26-Feb-2017 11:06 Encounter Reason: ASTHMA, FOLLOW UP - The last clinic visit was 3 month(s) ago (primary is Dr. Donte Mckinney). No changes [facility] in management were made at the last [...] To 08-Feb-2017 11:56 Encounter Diagnosis: ABNORMAL SPUTUM [facility] Historical Summary 04-Feb-2017 14:17 To 04-Feb-2017 14:21 Encounter Diagnosis: ASTHMA (Renamed from AIRWAY HYPERREACTIVITY) [facility] Office Order Only 30-Nov-2016 15:44 To 30-Nov-2016 15:45 Encounter Diagnosis: ASTHMA (Renamed from AIRWAY HYPERREACTIVITY) [facility] Office Office Visit 30-Nov-2016 15:01 To 30-Nov-2016 15:48 Encounter Reason: ASTHMA, FOLLOW UP - The last clinic visit was 3 month(s) ago (primary is Dr. Donte Mckinney). No changes [facility] Office in management were made [...] was 5 month(s) ago (and hospitalized in [place] 08/23-08/27/19 [facility] 17 with pneumonia and still [...] Dr. Donte Mckinney). No changes [place] [facility] in management were made at [...] Encounter Diagnosis: ABNORMAL FINDING ON LUNG IMAGING [facility] Order Only 03-Jan-2016 8:56 To 03-Jan-2016 10:08 Encounter Diagnosis: ABNORMAL FINDING ON LUNG IMAGING [facility] Office Visit 03-Jan-2016 8:04 To 03-Jan-2016 8:48 Encounter Reason: ASTHMA, FOLLOW UP - The last clinic visit was 1 month(s) ago (primary is Dr. Donte Mckinney). Management [facility] changes made at the last [...] ABNORMAL FINDING ON LUNG IMAGING [facility] Historical Summary 26-Nov-2015 14:51 To [...] ago (primary is Dr. Donte Mckinney). Management [facility] Office changes made at the last visit [...] 11:02 Encounter Diagnosis: CARCINOID TUMOR OF LUNG [facility] Office Office Visit 26-Aug-2015 10:19 To 26-Aug-2015 14:58 Encounter Reason: ASTHMA, FOLLOW UP - The last clinic visit was 3 month(s) ago (primary is Dr. Donte Mckinney). Management [facility] Office changes made at the last visit [...] is Dr. Donte Mckinney). No changes i [place] [facility] n management were made at [...] weeks ago. has been on medrol dose kenadl from another provider since late last week, [...] Encounter Diagnosis: ASTHMA (Renamed from AIRWAY HYPERREACTIVITY) [facility] Order Only 22-Apr-2015 14:19 To 22-Apr-2015 14:23 Encounter Diagnosis: ABNORMAL FINDING ON LUNG IMAGING [facility] Historical Summary 19-Apr-2015 13:28 To 19-Apr-2015 13:31 [facility] Historical Summary 19-Apr-2015 12:53 To 19-Apr-2015 12:54 Encounter Reason: ASTHMA, FOLLOW UP - The last clinic visit was 6 month(s) ago (primary is Dr. Donte Mckinney, also seeing [facility] Dr. Knight). Management changes made [...] (primary is Dr. Donte Mckinney, also seeing [facility] Dr. Knight). Management changes made [...] (primary is Dr. Donte Mckinney, also seeing [facility] Dr. Knight). Management changes [...] Encounter Diagnosis: BACTERIAL INFECTION DUE TO PSEUDOMONAS [facility] Office Visit 02-Aug-2014 10:32 To 02-Aug-2014 16:02 Encounter Reason: ASTHMA, FOLLOW UP - The last clinic visit was 3 month(s) ago (primary is Dr. Donte Mckinney, also seeing [facility] Dr. Knight). Management changes made [...] (primary is Dr. Donte Mckinney, also seeing [facility] Dr. Knight). Management changes made [...] Encounter Diagnosis: ASTHMA (Renamed from AIRWAY HYPERREACTIVITY) [facility] Order Only 18-Apr-2014 15:07 To 18-Apr-2014 15:08 Encounter Diagnosis: BACTERIAL INFECTION DUE TO PSEUDOMONAS [facility] Office Medication Order 11-Apr-2014 14:55 To 11-Apr-2014 15:06 Encounter Diagnosis: BACTERIAL INFECTION DUE TO PSEUDOMONAS [facility] Office Visit 21-Mar-2014 9:37 To 21-Mar-2014 13:33 Encounter Reason: ASTHMA, FOLLOW UP - The last clinic visit was 3 month(s) ago (primary is Dr. Donte Mckinney, also seeing [facility] Dr. Knight). No changes in [...] (primary is Dr. Donte Mckinney, also seeing [facility] Dr. Knight). No changes in management [...] Encounter Diagnosis: BACTERIAL INFECTION DUE TO PSEUDOMONAS [facility] Medication Order 01-Nov-2013 11:27 To 08-Nov-2013 17:51 Encounter Diagnosis: BACTERIAL INFECTION DUE TO PSEUDOMONAS [facility] Order Only 28-Jul-2013 15:54 To 28-Jul-2013 16:10 Encounter Diagnosis: ABNORMAL FINDING ON LUNG IMAGING [facility] Historical Summary 06-Jul-2013 14:42 To 06-Jul-2013 14:44 Encounter Reason: ASTHMA, FOLLOW UP - The last clinic visit was 1 month(s) ago (primary is Dr. Donte Mckinney, also seeing [facility] Dr. Knight). No changes in management [...] (primary is Dr. Donte Mckinney, also seeing [facility] Dr. Knight). No changes in management [...] (primary is Dr. Donte Mckinney, also seeing [facility] Dr. Knight). No changes in [...] (primary is Dr. Donte Mckinney, also seeing [facility] Dr. Knight). No changes in [...] (primary is Dr. Donte Mckinney, also seeing [facility] Dr. Knight). No changes in management [...] (primary is Dr. Donte Mckinney, also seeing [facility] Dr. Knight). No changes in management [...] Encounter Diagnosis: BACTERIAL INFECTION DUE TO PSEUDOMONAS [facility] Office Visit 12-May-2013 14:37 To 12-May-2013 15:37 Encounter Reason: ASTHMA, FOLLOW UP - The last clinic visit was 1 month(s) ago (primary is Dr. Donte Mckinney, also seeing [facility] Dr. Knight). No changes [...] (primary is Dr. Donte Mckinney, also seeing [facility] blanca Knight). Management changes made [...] (primary is Dr. Donte Mckinney, also seeing [facility] Dr. Knight). Management changes made at [...] Encounter Diagnosis: ASTHMA (Renamed from AIRWAY HYPERREACTIVITY) [place] [facility] Medication Order 10-Mar-2013 12:38 To 10-Mar-2013 13:02 Encounter Diagnosis: BACTERIAL INFECTION DUE TO PSEUDOMONAS [facility] Order Only 03-Mar-2013 10:58 To 07-Mar-2013 16:05 Encounter Diagnosis: ABNORMAL FINDING ON LUNG IMAGING [place] [facility] Office Visit 02-Mar-2013 15:20 To 02-Mar-2013 16:32 Encounter Reason: ASTHMA, FOLLOW UP - The last clinic visit was 7 month(s) ago (primary is Dr. Donte Mckinney). Management [facility] Office changes made at the last visit [...] ago (primary is Dr. Donte Mckinney). Management [facility] changes made at the last visit [...] on cpap nightly. home care company is [employer] gets supplies prn. able to wear cpap [...] (primary is Dr. Donte Mckinney). No changes [facility] in management were made at the last [...] on cpap nightly. home care company is [employer] gets supplies prn. ab le to wear cpap all night without any respiratory symptoms. feels more rested with use), allergic rhinitis and gastroesophageal reflux. denies recent hospitalizations. Encounter Diagnosis: PULMONARY NODULE (518.89) , ASTHMA (493.90), PABLITO (OBSTRUCTIVE SLEEP APNEA) (327.23), OBESITY (278.00), AR (ALLERGIC RHINITIS) (477.9), GERD (GASTROESOPHAGEAL REFLUX DISEASE) (530.81) Medication Order 30-Jun-2012 17:24 To 30-Jun-2012 17:26 Encounter Diagnosis: ASTHMA (493.90) [facility] Office Office Visit 04-Feb-2012 14:33 To 04-Feb-2012 15:23 Encounter Reason: Asthma follow up - The last clinic visit was 6 month(s) ago. No changes in management were made at t [facility] Office he last visit. Symptoms include shortness [...] includes CPAP therapy (home care company is [employer], mask fits, has humidity. gets mask/supplies prn). [...] ago. Management changes made at the last [facility] Office it include adding symbicort 160/4.5 and [...] Historical Summary 03-Aug-2011 19:22 To 03-Aug-2011 19:23 [facility] Office Medication Order 09-Jul-2011 8:23 To 09-Jul-2011 8:26 Encounter Diagnosis: AR (ALLERGIC RHINITIS) ( 477.9) [facility] Office Visit 01-May-2011 10:18 To 01-May-2011 11:38 Encounter Reason: Sleep Follow Up PHP - The sleep disorder is characterized as obstructive sleep apnea. The last clinic [facility] Office visit was 6 month(s) ago. Management [...] Historical Summary 30-Apr-2011 11:48 To 30-Apr-2011 12:19 [facility] Payers [employer] [place] [address] [facility] [address] [place] Group Number: [id number] tel: [employer] [place] [address] [address] [place] [address] [place] Group Number: [id number] tel: RICHIE HADDAD [address] [place] [id number] [place] tel:
--- OUTSIDE RECORDS SUMMARY | 2019-07-13 12:32 | XMS REPORT | Continuity of Care Document ---
:1935 Author Name Supervisor Coffee, System Address Unavailable Unavailable , Care Team Providers Name Role Phone Faye DUFFY, Donte Unavailable Denver Hudson DO Unavailable NATALYA DUFFY, LASHAY Lugo Unavailable Antonia DUFFY, Saul Brady Unavailable Ranulfo DUFFY, Maryann Unavailable HOKERVIN, Hematology DIrect Address Unavailable Unavailable Edmundo Diaz M Unavailable Floyd DUFFY, Amisha Caldwell Unavailable Tasha DPM, Main Unavailable Hilary MSN NPC, [place] Unavailable Elizabeth Msn Npc, Mela Le Unavailable Marlyn MSN, NPC, Gregoria Unavailable Matti DUFFY, Dr. Guero Melo Unavailable Niharika LRT, Tera Unavailable Unavailable Rodriguez RING ROLLING MACHINE OPERATOR, Pancho Unavailable Unavailable Reginald ENVIRONMENTAL MANAGER, Reji Unavailable Unavailable Cristopher RING ROLLING MACHINE OPERATOR, Kavitha Unavailable Unavailable Margo RING ROLLING MACHINE OPERATOR, Yael Unavailable Unavailable Loveless RING ROLLING MACHINE OPERATOR, Ally Unavailable Unavailable Davin RING ROLLING MACHINE OPERATOR, Yvette Unavailable Unavailable Beaudin RING ROLLING MACHINE OPERATOR, Kobe Unavailable Unavailable Flaherty LRT, Guero Unavailable Unavailable Taylor RING ROLLING MACHINE OPERATOR, Briseida Unavailable Unavailable Harp LRT, Piper Unavailable [...] GERD (GASTROESOPHAGEAL REFLUX DISEASE) (K21.9) (530.81) DO eDnver Hudson HYPERLIPIDEMIA (Renamed from HLD (HYPERLIPIDEMIA)) (E78.5) [...] Tablet; 1 daily (10 MG) CALCIUM-VITAMIN D, [id number]-OHNC (Oral Tablet); three times daily (250-125 MG-UNIT) [...] 0 Comments: 30mg po x 2 days, [id number] po x 2 days [id number] po x 2 days, then stop Qvar [...] 22-Mar-2015 End: 01-Aug-2018 Quantity: 60 {Aerosol_Soln} ALEXIA Clnie, NPC Gregoria Status: Inactive Refills: 11 Comments: [...] EXHALED NITRIC OXIDE MEASUREMENT Status: Completed 05-Jun-2019 (19302) EXHALED NITRIC OXIDE MEASUREMENT Date: 01-Aug-2018 Status: Completed 2018 (30093) AIRFLOW RESISTANCE MEASUREMENT: Status: Completed 17-Nov-2018 PULM FUNCT TEST OSCILLOMETRY (02324) THORACIC GAS VOLUME: AIRWAY Status: Completed 17-Nov-2018 CLOSING VOLUME MEASUREMENT: PULM FUNCTION TEST BY GAS (90778) TOTAL VITAL CAPACITY (97790) Status: Completed 17-Nov-2018 MEASUREMENT OF NITRIC Status: Completed 17-Nov-2018 OXIDE (20983) MEASUREMENT OF NITRIC Status: Completed 08-Jun-2018 OXIDE (21691) RESPIRATORY FLOW VOLUME LOOP Status: Completed 08-Jun-2018 (85548) TOTAL VITAL CAPACITY (03019) Status: Completed 16-Feb-2018 TOTAL BODY PLETHYSMOGRAPHY: Status: Completed 16-Feb-2018 AIRFLOW RESISTANCE MEASUREMENT (60021) THORACIC GAS VOLUME: AIRWAY Status: Completed 16-Feb-2018 CLOSING VOLUME MEASUREMENT: PULM FUNCTION TEST BY GAS (37840) RESPIRATORY FLOW VOLUME LOOP Status: Completed 16-Feb-2018 (72274) DLCO (CARBON MONOXIDE DIFFUSING Status: Completed 16-Feb-2018 CAPACITY) (84323) AIRFLOW RESISTANCE MEASUREMENT: Status: Completed 16-Feb-2018 PULM FUNCT TEST OSCILLOMETRY (24661) PRE AND POST (42858) Status: Completed 16-Feb-2018 RESPIRATORY FLOW VOLUME LOOP Status: Completed 17-Nov-2017 (65341) TOTAL VITAL CAPACITY (91290) Status: Completed 26-Feb-2017 TOTAL BODY PLETHYSMOGRAPHY (83349) Status: Completed 26-Feb-2017 TGV THORACIC GAS VOLUME: AIRWAY Status: Completed 26-Feb-2017 CLOSING VOLUME MEASUREMENT: PULM FUNCTION TEST BY GAS (56925) RESPIRATORY FLOW VOLUME LOOP Status: Completed 26-Feb-2017 (01830) DLCO (CARBON MONOXIDE DIFFUSING Status: Completed 26-Feb-2017 CAPACITY) (16091) AIRFLOW RESISTANCE MEASUREMENT: Status: Completed 26-Feb-2017 PULM FUNCT TEST OSCILLOMETRY (93109) PRE AND POST (95340) Status: Completed 26-Feb-2017 RESPIRATORY FLOW VOLUME LOOP Status: Completed 09-Sep-2016 (39583) PRE AND POST (07841) Status: Completed 09-Sep-2016 TOTAL VITAL CAPACITY (96220) Status: Completed 17-Apr-2016 TOTAL BODY PLETHYSMOGRAPHY (83548) Status: Completed 17-Apr-2016 TGV THORACIC GAS VOLUME: AIRWAY Status: Completed 17-Apr-2016 CLOSING VOLUME MEASUREMENT: PULM FUNCTION TEST BY GAS (28944) RESPIRATORY FLOW VOLUME LOOP Status: Completed 17-Apr-2016 (39779) DLCO (CARBON MONOXIDE DIFFUSING Status: Completed 17-Apr-2016 CAPACITY) (66042) AIRFLOW RESISTANCE MEASUREMENT: Status: Completed 17-Apr-2016 PULM FUNCT TEST OSCILLOMETRY (19160) PRE AND POST (93943) Status: Completed 17-Apr-2016 RESPIRATORY FLOW VOLUME LOOP Status: Completed 26-Nov-2015 (47655) TOTAL VITAL CAPACITY (63733) Status: Completed 26-Aug-2015 TOTAL BODY PLETHYSMOGRAPHY (13716) Status: Completed 26-Aug-2015 TGV THORACIC GAS VOLUME: AIRWAY Status: Completed 26-Aug-2015 CLOSING VOLUME MEASUREMENT: PULM FUNCTION TEST BY GAS (29981) RESPIRATORY FLOW VOLUME LOOP Status: Completed 26-Aug-2015 (08810) DLCO (CARBON MONOXIDE DIFFUSING Status: Completed 26-Aug-2015 CAPACITY) (99787) AIRFLOW RESISTANCE MEASUREMENT: Status: Completed 26-Aug-2015 PULM FUNCT TEST OSCILLOMETRY (77339) PRE AND POST (39324) Status: Completed 26-Aug-2015 AIRFLOW RESISTANCE MEASUREMENT: Status: Completed 19-Apr-2015 PULM FUNCT TEST OSCILLOMETRY (37855) TOTAL VITAL CAPACITY (72013) Status: Completed 19-Apr-2015 TOTAL BODY PLETHYSMOGRAPHY: AIRWAY Status: Completed 19-Apr-2015 CLOSING VOLUME MEASUREMENT: PULM FUNCT TST PLETHYSMOGRAP (34624) RESPIRATORY FLOW VOLUME LOOP Status: Completed 19-Apr-2015 (23484) THORACIC GAS VOLUME: AIRWAY Status: Completed 19-Apr-2015 CLOSING VOLUME MEASUREMENT: PULM FUNCTION TEST BY GAS (88841) DLCO (CARBON MONOXIDE DIFFUSING Status: Completed 19-Apr-2015 CAPACITY) (95947) PRE AND POST (86350) Status: Completed 19-Apr-2015 RESPIRATORY FLOW VOLUME LOOP Status: Completed 02-Aug-2014 (41714) PRE AND POST (75777) Status: Completed 02-Aug-2014 RESPIRATORY FLOW VOLUME LOOP Status: Completed 21-Mar-2014 (88226) PRE AND POST (31391) Status: Completed 21-Mar-2014 MEDICARE RX CODE: AT LEAST ONE Status: Completed 29-May-2013 PRESCRIPTION CREATED DURING THE ENCOUNTER WAS GENERATED AND TRANSMITTED ELECTRONICALLY USING A QUALIFIED ERX SYSTEM (G8553) RESPIRATORY FLOW VOLUME LOOP Status: Completed 10-Apr-2013 (76354) PRE AND POST (49680) Status: Completed 10-Apr-2013 RESPIRATORY FLOW VOLUME LOOP Status: Completed 02-Mar-2013 (68006) SPIROMETRY WITH BRONCHODILATOR Status: Completed 02-Mar-2013 (46505) MEDICARE RX CODE: AT LEAST ONE Status: Completed 07-Oct-2012 PRESCRIPTION CREATED DURING THE ENCOUNTER WAS GENERATED AND TRANSMITTED ELECTRONICALLY USING A QUALIFIED ERX SYSTEM (G8553) REST/EXERCISE OXIMETRY (77587) Status: Completed 07-Oct-2012 RESPIRATORY FLOW VOLUME LOOP Status: Completed 07-Oct-2012 (71208) PRE AND POST W/ RT (18461) Status: Completed 07-Oct-2012 ACT Status: Completed 03-Feb-2011 [...] pleural scar in RML PRE AND POST (88572)Result: Hemoptysis: No Status: Completed 17-Nov-2018 CAT SCAN OF CHEST: CT THORAX W/O DYE (13647)Result: Status: Completed 2018 Are you or could you become ?: No; When was you last CXR/CT?: over week ago; Operating Room Specialist: JUAN Booth PRE AND POST (28672)Result: Hemoptysis: No Status: Completed 01-Aug-2018 PRE AND POST (16384)Result: Hemoptysis: No Status: Completed 08-Jun-2018 CAT SCAN OF CHEST: CT THORAX W/O DYE (92027)Result: Status: Completed 2017 Are you or could you become ?: No; When was you last CXR/CT?: over a week ago; Operating Room Specialist: Piper Chopra, LRT PRE AND POST (39319)Result: Hemoptysis: No Status: Completed 17-Nov-2017 CHEST X-RAY, PA AND LATERAL (47350)Result: Are you Status: Completed 2016 or could you become ?: No; When was you last CXR/CT?: over week ago; Operating Room Specialist: Tera Bundy, LRT CHEST X-RAY, PA AND LATERAL (66034)Result: Are you Date: 30-Nov-2016 or could you become ?: No; When was Status: Completed 2016 you last CXR/CT?: over week ago; Operating Room Specialist: Tera Bundy, LRT CHEST X-RAY, PA AND LATERAL ([id number])Result: Are you Date: 30-Nov-2016 or could you become ?: No; When was Status: Completed 2016 you last CXR/CT?: over week ago; Operating Room Specialist: Comments: today at [facility] Tera Bundy, LRT CHEST X-RAY, PA AND LATERAL ([id number])Result: Are you Status: Completed 2016 or could you become ?: No; When was you last CXR/CT?: OVER WEEK AGO; Operating Room Specialist: Tera Bundy, LRT CT THORAX W/O DYE (48133)Result: Are you or Status: Completed could you become ?: No; When was you last CXR/CT?: over week ago; Operating Room Specialist: Tera Bundy, LRT CT THORAX W/O DYE (85878)Result: Are you or Status: Completed could you become ?: No; When was you last CXR/CT?: OVER WEEK AGO; Operating Room Specialist: Tera Bundy, LRT CHEST X-RAY, PA AND LATERAL (14177)Result: Are you Status: Completed 2015 or could you become ?: No; When was you last CXR/CT?: over week ago; Operating Room Specialist: Tera Bundy, LRT PRE AND POST (52291)Result: Hemoptysis: No Status: Completed 26-Nov-2015 CT THORAX W/O DYE (81879)Result: Are you or Status: Completed 2015 could you become ?: No; When was you last CXR/CT?: over a week ago; Operating Room Specialist: Tera Bundy, LRT CAT SCAN OF CHEST: CT THORAX W/O DYE (62518)Result: Status: Completed 2014 Are you or could you become ?: No; When was you last CXR/CT?: over a week ago; Operating Room Specialist: Tera Bundy, LRT CAT SCAN OF CHEST: CT THORAX W/O DYE (12762)Result: Status: Completed 2014 Are you or could you become ?: No; When was you last CXR/CT?: 2014; Operating Room Specialist: Guero Flaherty, LRT CAT SCAN OF CHEST: CT THORAX W/O DYE (52732)Result: Status: Completed 2014 Are you or could you become ?: No; When was you last CXR/CT?: OVER 1 WEEK AGO; Operating Room Specialist: Tera Bundy, LRT CT THORAX W/O DYE (14276)Result: Are you or Status: Completed could you become ?: No; When was you last CXR/CT?: 04/01; Operating Room Specialist: Guero Flaherty, LRT CHEST X-RAY, PA AND LATERAL (77171)Result: Are you Status: Completed 2013 or could you become ?: No; When was you last CXR/CT?: over 2 months ago; Operating Room Specialist: Tera Bundy, LRT CT THORAX W/O DYE (80532)Result: Are you or Status: Completed 2013 could you become ?: No; When was you last CXR/CT?: last month; Operating Room Specialist: Tera Bundy, LRT CT THORAX W/O DYE (03003)Result: Are you or Date: 21-Nov-2013 could you become ?: No; When was you last Status: Completed 2013 CXR/CT?: last month; Operating Room Specialist: Guero Flaherty, LRT CAT SCAN OF CHEST: CT THORAX W/O DYE (79876)Result: Status: Completed 2012 Are you or could you become ?: No; Operating Room Specialist: Rosalinda Rodriguez LPN CT THORAX W/O DYE (07321)Result: Are you or Status: Completed 2012 could you become ?: No; Operating Room Specialist: JUAN Booth ACT: ASSESSMENT OF DISEASE: ASTHMA [...] Score: 17 CHEST X-RAY, PA AND LATERAL (56555)Result: Are you Status: Completed 2012 or could you become ?: No; Operating Room Specialist: JUAN Booth Asthma Control Test (ACT)Result: [Questions] [...] Score] Score: 19 RESPIRATORY FLOW VOLUME LOOP (93944)Result: Date: 04-Aug-2011 Hemoptysis: No; Medication Used: Albuterol 0.083% kendell aerosol; Point Of Care Specialist: Reji Montelongo RRT RESPIRATORY FLOW VOLUME LOOP (72388)Result: Date: 01-May-2011 Hemoptysis: No; Medication Used: Albuterol 0.083% kendell aerosol; Point Of Care Specialist: Yael Aragon LPN Immunizations Influenza (3 years [...] Skin Test, Intradermal On: 03-Mar-2013 Lot #: [id number] Family History Allergic Rhinitis Status: Active Comments: Father. Emphysema Status: Active Comments: Father. Social History Alcohol use: Occasional alcohol use. Current work status: Retired. Marital status: . No caffeine use No drug use Tobacco use: Never smoker. Never smoker Female Plan of Treatment CAT SCAN OF CHEST: CT THORAX W/O DYE Start: 05-Jul-2019 Intent (26137) REST OXIMETRY (41523) Start: 05-Jun-2019 Intent SIMPLE PFT: BASELINE PULMONARY Start: 05-Jun-2019 Intent FUNCTION TEST (PFT) (69743) REST OXIMETRY (78328) Start: 17-Nov-2018 Intent CONTINUOUS OVERNIGHT OXIMETRY Start: 08-Jun-2018 Intent (21073) Comments: on cpap REST OXIMETRY (10228) Start: 16-Feb-2018 Intent EXHALED NITRIC OXIDE MEASUREMENT Start: 17-Nov-2017 Intent (56829) Comments: Evaluated patient's nitric oxide. The results were 16 ppb RESPIRATORY FLOW VOLUME LOOP (18650) Start: 30-Nov-2016 Intent SIMPLE PFT: BASELINE PULMONARY Start: 30-Nov-2016 Intent FUNCTION TEST (PFT) (37401) REST OXIMETRY (05655) Start: 09-Sep-2016 Intent REST OXIMETRY (70823) Start: 26-Nov-2015 Intent REST OXIMETRY (32048) Start: 19-Apr-2015 Intent RESPIRATORY FLOW VOLUME LOOP (04049) Start: 11-Oct-2014 Intent PRE AND POST (52020) Start: 11-Oct-2014 Intent REST/ EXERCISE OXIMETRY (88889) Start: 21-Nov-2013 Intent TOTAL VITAL CAPACITY (82094) Start: 21-Nov-2013 Intent TOTAL BODY PLETHYSMOGRAPHY (16178) Start: 21-Nov-2013 Intent TGV THORACIC GAS VOLUME: AIRWAY Start: 21-Nov-2013 Intent CLOSING VOLUME MEASUREMENT: PULM FUNCTION TEST BY GAS (79901) RESPIRATORY FLOW VOLUME LOOP (49788) Start: 21-Nov-2013 Intent DLCO (CARBON MONOXIDE DIFFUSING Start: 21-Nov-2013 Intent CAPACITY) (16142) AIRFLOW RESISTANCE MEASUREMENT: PULM Start: 21-Nov-2013 Intent FUNCT TEST OSCILLOMETRY (48624) PRE AND POST (06593) Start: 21-Nov-2013 Intent REST OXIMETRY (99444) Start: 06-Jul-2013 Intent RESPIRATORY FLOW VOLUME LOOP (83909) Start: 06-Jul-2013 Intent PRE AND POST (21855) Start: 06-Jul-2013 Intent BRONCHOSCOPY IN ENDO (20288) Start: 12-May-2013 Intent REST/ EXERCISE OXIMETRY (17261) Start: 02-Mar-2013 Intent ACT: ASSESSMENT OF DISEASE: ASTHMA Start: 02-Mar-2013 Intent SYMPTOMS EVALUATE (1005F) REST/EXERCISE OXIMETRY (43595) Start: 08-Aug-2012 Intent RESPIRATORY FLOW VOLUME LOOP (86095) Start: 08-Aug-2012 Intent PRE/POST (67267) Start: 08-Aug-2012 Intent RESPIRATORY FLOW VOLUME LOOP (50381) Start: 04-Feb-2012 Intent EXERCISE OXIMETRY (97030) Start: 04-Feb-2012 Intent REST OXIMETRY (79759) Start: 04-Feb-2012 Intent PRE/POST (50393) Start: 04-Feb-2012 Intent PRE/POST W/ RT (99860) Start: 04-Aug-2011 Intent REST OXIMETRY (75273) Start: 04-Aug-2011 Intent EXERCISE OXIMETRY (05614) Start: 04-Aug-2011 Intent Pre/Post (43161) Start: 01-May-[address]; [address] SCAN CHEST - Start: 01-Aug-2019 13:00 [facility]ointment [facility]; FULL PFT 30 - R/O, FeNo Start: 01-Aug-2019 13:15 Appointment Request [facility]; FOLLOW UP 15 - Fu 15, Full, FeNo, R/O, CT Start: 01-Aug-2019 14:15 Appointment [facility] DO [place] Hudson [employer] (95465) Start: 05-Jun-2019 12:32 Request SPUTUM CULTURE (87578) Start: 05-Jun-2019 12:32 Request SPUTUM CULTURE (36824) Start: 20-Apr-2019 10:48 Request BUN (BLOOD UREA NITROGEN) (78182) Start: 16-Aug-2018 10:40 Request CREATININE BLOOD (08517) Start: 16-Aug-2018 10:40 Request SPUTUM CULTURE (20019) Start: 11-Aug-2018 11:01 Request SPUTUM CULTURE (36958) Start: 29-Jul-2018 10:01 Request CANDACE SCREEN (28607) Start: 17-Nov-2017 14:20 Request RHEUMATOID FACTOR-QUANT (75257) Start: 17-Nov-2017 14:20 Request SED RATE ERYTHROCYTE (87818) Start: 17-Nov-2017 14:20 Request Comments: ICD 279.49 RHEUMATOID FACTOR-QUANT (36772) Start: 17-Nov-2017 14:19 Request OVDIZ-2-MEQEYDECJZJ-TOTAL (31223) Start: 17-Nov-2017 14:19 Request YCGXY-8-DIQXKKJOVET-PHEN (90774) Start: 17-Nov-2017 14:19 Request QUANTATATIVE IMMUNOGLOBULINS (24331) Start: 17-Nov-2017 14:15 Request IMMUNOGLOBULIN E (IgE) (05763) Start: 17-Nov-2017 14:15 Request CBC, PLATELETS & AUT DIFF (37229) Start: 17-Nov-2017 14:15 Request SPUTUM CULTURE (68714) Start: 03-May-2017 14:34 Request CBC, PLATELETS & AUT DIFF (94359) Start: 26-Feb-2017 10:15 Request QUANTATATIVE IMMUNOGLOBULINS (26799) Start: 26-Feb-2017 10:15 Request IMMUNOGLOBULIN E (IgE) (98635) Start: 26-Feb-2017 10:15 Request ASTHMA (Renamed from [...] PSEUDOMONAS : Start flutter device- faxed to [employer] Indication:BACTERIAL INFECTION DUE TO PSEUDOMONAS ASTHMA (Renamed from AIRWAY HYPERREACTIVITY) : Continue with Spiriva with 2.5mcg samples to replace low dose for a trial Indication:ASTHMA (Renamed from AIRWAY HYPERREACTIVITY) OBSTRUCTIVE SLEEP APNEA : Change to auto titrating CPAP- faxed to [employer] already Indication:OBSTRUCTIVE SLEEP APNEA ASTHMA (Renamed from [...] Results IMMUNOGLOBULIN E (IgE) Ordered On: 05-Jun-2019 (80155) IGE @ 565 kU/L (Abnormal) Comments: Unless otherwise specified, testing performed by [facility] [address] [place] [address] 45971 CBC, PLATELETS & AUT DIFF Ordered On: 05-Jun-2019 (34769) BASO # 0.0 10*3/uL Range: 0.0 10*3/uL - 0.2 10*3/uL (Normal) Comments: Unless otherwise specified, testing performed by [facility] [address] [place] [address] 32250 EOS # 0.0 10*3/uL Range: 0.0 10*3/uL [...] 10*3/uL (Abnormal) QUANTATATIVE Ordered On: 05-Jun-2019 IMMUNOGLOBULINS (79004) IGM @ 117 mg/dL (Normal) Range: 40 mg/dL - 248 mg/dL Comments: Unless otherwise specified, testing performed by [facility] [address] [place] [address] 88235 IGA @ 352 mg/dL (Normal) Range: 71 mg/dL - 374 mg/dL IGG @ 828 mg/dL (Normal) Range: 700 mg/dL - 1600 mg/dL SPUTUM CULTURE (18048) Ordered On: 09-May-2014 CULTURE, SPUTUM pseudomonas (Normal) SPUTUM CULTURE (35470) Ordered On: 20-Apr-2014 CULTURE, SPUTUM e coli Comments: see scanned doc (Normal) RJLGQ-0-MBVOTRHFJNH-TOTAL Ordered On: 29-May-2013 (49791) NDFRZ-3-IYIYPHQBLPN-TOTAL see scanned doc (Normal) EUWBP-4-WKDKYZYWDJO-PHEN Ordered On: 29-May-2013 (36254) HZMCL-6-JAWPHLJDIKF-PHEN MM (Normal) IMMUN SUBCLAS-IGG1,2,3 & 4 Ordered On: 29-May-2013 (33103) IMMUN SUBCLAS-IGG1,2,3 & 4 see scanned doc (Normal) RHEUMATOID FACTOR-QUANT Ordered On: 29-May-2013 (79815) RHEUMATOID FACTOR-QUANT Range: 0 [iU] - 15 [iU] see scanned doc [iU] (Normal) ANCA C&P W/REFLEX (88313) Ordered On: 29-May-2013 ANCA - C see scanned doc (Normal) CBC & PLATELETS (AUTO) Ordered On: 29-May-2013 (36837) BLOOD COUNT, PLATELET, AUTOMATED see scanned doc [...] (Normal) IMMUNOGLOBULIN E (IgE) Ordered On: 29-May-2013 (88207) IMMUNOGLOBULIN E (IgE) Range: 0 mg/dL - 380 mg/dL see scanned doc mg/dL (Abnormal) ACID FAST CUL/SMEAR Ordered On: 17-May-2013 ACID FAST CUL/SMEAR See Comments: SPECIMEN DESCRIPTION Note (Normal) BRONCHIAL WASHINGSSPECIAL REQUESTS ...ACID FAST SMEAR NO ACID FAST BACILLI (CONCENTRATED SMEAR)CULTURE RESULTS NO ACID FAST BACILLI ISOLATED AFTER 8 WEEKSREPORT STATUS FINAL 07/12/2013Unless otherwise specified, testing performed by [facility] [place] [facility] [address] [place] [address] 17311 FUNGUS CULTURE Ordered On: 17-May-2013 FUNGUS CULTURE See Note Comments: SPECIMEN DESCRIPTION (Normal) BRONCHIAL WASHINGSSPECIAL REQUESTS NONECULTURE RESULTS BROOKE ALBICANSREPORT STATUS FINAL 06/14/2013Unless otherwise specified, testing performed by [facility] [address] [place] [address] 64826 LEGIONELLA CULTURE Ordered On: 17-May-2013 LEGIONELLA CULTURE See Comments: SPECIMEN DESCRIPTION Note (Normal) BRONCHIAL WASHINGSSPECIAL REQUESTS NONECULTURE RESULTS CULTURE DISCONTINUED DUE TO BACTERIAL CONTAMINAT IONREPORT STATUS FINAL 05/19/2013Unless otherwise specified, testing performed by [facility] [address] [place] [address] 59279 LEGIONELLA DFA Ordered On: 17-May-2013 LEGIONELLA DFA See Note Comments: SPECIMEN DESCRIPTION (Normal) BRONCHIAL WASHINGSSPECIAL REQUESTS NONERESULT NEGATIVE FOR LEGIONELLA PNEUMOPHILA BY DFAREPORT STATUS FINAL 05/17/2013Unless otherwise specified, testing performed by [facility] [address] [place] [address] 06574 RESPIRATORY CULTURE Ordered On: 17-May-2013 RESPIRATORY CULTURE [...] <=1 SUSCEPTIBLEUnless otherwise specified, testing performed by [facility] [address] [place] [address] 95417 PT (PROTHROMBIN TIME) Ordered On: 12-May-2013 (04270) INR 0.95 (Normal) Comments: SUGGESTED THERAPEUTIC RANGES USING INR FORSTABILIZED ANTICOAGULATED PATIENTS:STANDARD DOSE THERAPY INR 2.0-3.0 DVT, PE, PREVENT DVT OR EMBOLISMHIGH DOSE THERAPY INR 2.5-3.5 PREVENT EMBOLISM FROM MECHANICAL HEART VALVEUnless otherwise specified, testing performed by [facility] [address] [place] [address] 52630 PT 10.5 {SEC} (Normal) Range: 9.2 {SEC} - 11.9 {SEC} PLATELET COUNT (86161) Ordered On: 12-May-2013 PLT 301 10*3/uL (Normal) Range: 150 10*3/uL - 400 10*3/uL Comments: Unless otherwise specified, testing performed by [facility] [place] [address] PTT (ACTIVATED PARTIAL Ordered On: 12-May-2013 THROMBOPLASTIN TIME) (78644) APTT 27.1 {SEC} (Normal) Range: 22.0 {SEC} - 32.6 {SEC} Comments: Unless otherwise specified, testing performed by [facility] [place] [address] SKIN TEST INTRADERMAL TB Ordered On: 03-Mar-2013 Comments: LA LOT# [id number] EXP : (41970) 03/2014 SKIN TEST INTRADERMAL TB Comments: negative negative (Normal) [employer] (84383) Ordered On: 02-Mar-2013 Comments: x 3 TUBERCLE CULTURE negative Comments: also negative on 03/06 (Normal) and 03/07 samples collected SPUTUM CYTOLOGY (04698) Ordered On: 06-Mar-2013 SPUTUM CYTOLOGY negative Comments: on both 03/06 and 03/07 (Normal) samples collected SPUTUM CULTURE (64766) Ordered On: 02-Mar-2013 CULTURE, SPUTUM abnormal Comments: [...] Summary 05-Jun-2019 12:45 To 31-May-2019 8:49 Pulmonary [facility] Office Office Visit 05-Jun-2019 12:45 To 05-Jun-2019 12:42 Encounter Reason: ASTHMA, FOLLOW UP - The last clinic visit was 6 month(s) ago (And since that appointment the patient Pulmonary [facility] Office did have 3 courses of [...] using cpap nightly. home care company is [employer]. no issues and no snoring with cpap [...] ago. Management changes made at the last [facility] Office it include none (Except to hold [...] using cpap nightly. home care company is [employer]. no issues and no snoring with cpap on and feels more rested with use. 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 home care company is [employer]. no issues and no snoring with cpap [...] Historical Summary 17-Nov-2018 13:45 To 17-Nov-2018 13:45 [place] [facility] Historical Summary 17-Nov-2018 13:45 To 11-Nov-2018 9:02 Encounter Reason: ASTHMA, FOLLOW UP - The last clinic visit was 4 month(s) ago (And since that appointment the patient [facility] Office has seen infectious disease August [...] To 29-Aug-2018 7:51 Encounter Diagnosis: IGG DEFICIENCY [facility] Office Order Only 16-Aug-2018 10:36 To 16-Aug-2018 10:40 Encounter Diagnosis: ACUTE BRONCHITIS [facility] Office Order Only 11-Aug-2018 11:01 To 11-Aug-2018 11:05 Encounter Diagnosis: ABNORMAL SPUTUM [facility] Office Office Visit 01-Aug-2018 9:30 To 02-Aug-2018 10:32 Encounter Reason: ASTHMA, FOLLOW UP - The last clinic visit was 2 month(s) ago. Management changes made at the last [facility] Office it include changing the dose of [...] using cpap nightly. home care company is [employer]. no issues and no s noring with [...] To 29-Jul-2018 10:03 Encounter Diagnosis: ACUTE BRONCHITIS [facility] Office Medication Order 05-Jul-2018 15:48 To 05-Jul-2018 15:50 Encounter Diagnosis: ASTHMA (Renamed from AIRWAY HYPERREACTIVITY) [facility] Office Office Visit 08-Jun-2018 10:21 To 08-Jun-2018 13:45 Encounter Reason: ASTHMA, FOLLOW UP - The last clinic visit was 3 month(s) ago. No changes in management were made at [facility] Office he last visit. The patient's [...] By report there is good compliance with [facility] ent, good tolerance of treatment and [...] 16:39 Encounter Diagnosis: CARCINOID TUMOR OF LUNG [facility] Office Historical Summary 16-Feb-2018 11:38 To 16-Feb-2018 11:40 Encounter Reason: ASTHMA, FOLLOW UP - The last clinic visit was 3 month(s) ago. Management changes made at the last [facility] Office it include ordering tests. The [...] Historical Summary 16-Feb-2018 11:09 To 16-Feb-2018 11:09 [facility] Office Visit 16-Feb-2018 10:36 To 16-Feb-2018 12:04 Encounter Reason: ASTHMA, FOLLOW UP - The last clinic visit was 3 month(s) ago. Management changes made at the last vis [facility] it include ordering tests. [...] Historical Summary 04-Feb-2018 14:15 To 04-Feb-2018 14:21 [facility] Office Order Only 17-Nov-2017 15:48 To 17-Nov-2017 15:51 Encounter Diagnosis: ABNORMAL FINDING ON LUNG IMAGING [facility] Office Visit 2-May-2018 13:49 To 17-Nov-2017 14:24 Encounter Reason: ASTHMA, FOLLOW UP - The last clinic visit was 9 month(s) ago (and has lost 9# since last seen, had ri [facility] ght knee surgery 2 weeks [...] Management changes made at the last [facility] Office it include none (except to [...] Historical Summary 13-Nov-2017 10:06 To 13-Nov-2017 10:09 [facility] Order Only 03-May-2017 14:33 To 03-May-2017 14:35 Encounter Diagnosis: ASTHMA (Renamed from AIRWAY HYPERREACTIVITY) [facility] Office Historical Summary 05-Apr-2017 16:16 To 05-Apr-2017 16:23 Encounter Diagnosis: ASTHMA (Renamed from AIRWAY HYPERREACTIVITY) [facility] Office Medication Order 02-Apr-2017 11:02 To 02-Apr-2017 11:54 Encounter Diagnosis: ACUTE BRONCHITIS [facility] Office Office Visit 26-Feb-2017 8:56 To 26-Feb-2017 11:06 Encounter Reason: ASTHMA, FOLLOW UP - The last clinic visit was 3 month(s) ago (primary is Dr. Donte Mckinney). No changes [facility] in management were made at the last [...] To 08-Feb-2017 11:56 Encounter Diagnosis: ABNORMAL SPUTUM [facility] Historical Summary 04-Feb-2017 14:17 To 04-Feb-2017 14:21 Encounter Diagnosis: ASTHMA (Renamed from AIRWAY HYPERREACTIVITY) [facility] Office Order Only 30-Nov-2016 15:44 To 30-Nov-2016 15:45 Encounter Diagnosis: ASTHMA (Renamed from AIRWAY HYPERREACTIVITY) [facility] Office Office Visit 30-Nov-2016 15:01 To 30-Nov-2016 15:48 Encounter Reason: ASTHMA, FOLLOW UP - The last clinic visit was 3 month(s) ago (primary is Dr. Donte Mckinney). No changes [facility] Office in management were made [...] was 5 month(s) ago (and hospitalized in [place] 08/23-08/27/19 [facility] 17 with pneumonia and still [...] Dr. Donte Mckinney). No changes [place] [facility] in management were made at [...] Encounter Diagnosis: ABNORMAL FINDING ON LUNG IMAGING [facility] Order Only 03-Jan-2016 8:56 To 03-Jan-2016 10:08 Encounter Diagnosis: ABNORMAL FINDING ON LUNG IMAGING [facility] Office Visit 03-Jan-2016 8:04 To 03-Jan-2016 8:48 Encounter Reason: ASTHMA, FOLLOW UP - The last clinic visit was 1 month(s) ago (primary is Dr. Donte Mckinney). Management [facility] Office changes made at the last [...] ABNORMAL FINDING ON LUNG IMAGING [facility] Historical Summary 26-Nov-2015 14:51 To [...] ago (primary is Dr. Donte Mckinney). Management [facility] Office changes made at the last [...] 11:02 Encounter Diagnosis: CARCINOID TUMOR OF LUNG [facility] Office Office Visit 26-Aug-2015 10:19 To 26-Aug-2015 14:58 Encounter Reason: ASTHMA, FOLLOW UP - The last clinic visit was 3 month(s) ago (primary is Dr. Donte Mckinney). Management [facility] Office changes made at the last [...] ago. Management changes made at the last [facility] Office t include none (and [...] is Dr. Donte Mckinney). No changes i [place] [facility] n management were made at [...] Encounter Diagnosis: ASTHMA (Renamed from AIRWAY HYPERREACTIVITY) [facility] Order Only 22-Apr-2015 14:19 To 22-Apr-2015 14:23 Encounter Diagnosis: ABNORMAL FINDING ON LUNG IMAGING [facility] Office Historical Summary 19-Apr-2015 13:28 To 19-Apr-2015 13:31 [facility] Office Historical Summary 19-Apr-2015 12:53 To 19-Apr-2015 12:54 Encounter Reason: ASTHMA, FOLLOW UP - The last clinic visit was 6 month(s) ago (primary is Dr. Donte Mckinney, also seeing [facility] Dr. Knight). Management changes made [...] (primary is Dr. Donte Mckinney, also seeing [facility] Dr. Knight). Management changes made [...] (primary is Dr. Donte Mckinney, also seeing [facility] Dr. Knight). Management [...] Encounter Diagnosis: BACTERIAL INFECTION DUE TO PSEUDOMONAS [facility] Office Visit 02-Aug-2014 10:32 To 02-Aug-2014 16:02 Encounter Reason: ASTHMA, FOLLOW UP - The last clinic visit was 3 month(s) ago (primary is Dr. Donte Mckinney, also seeing [facility] Dr. Knight). Management changes made [...] (primary is Dr. Donte Mckinney, also seeing [facility] Dr. Knight). Management changes made [...] Encounter Diagnosis: ASTHMA (Renamed from AIRWAY HYPERREACTIVITY) [facility] Order Only 18-Apr-2014 15:07 To 18-Apr-2014 15:08 Encounter Diagnosis: BACTERIAL INFECTION DUE TO PSEUDOMONAS [facility] Office Medication Order 11-Apr-2014 14:55 To 11-Apr-2014 15:06 Encounter Diagnosis: BACTERIAL INFECTION DUE TO PSEUDOMONAS [facility] Office Visit 21-Mar-2014 9:37 To 21-Mar-2014 13:33 Encounter Reason: ASTHMA, FOLLOW UP - The last clinic visit was 3 month(s) ago (primary is Dr. Donte Mckinney, also seeing [facility] Dr. Knight). No changes in [...] (primary is Dr. Donte Mckinney, also seeing [facility] Dr. Knight). No changes in [...] Encounter Diagnosis: BACTERIAL INFECTION DUE TO PSEUDOMONAS [facility] Medication Order 01-Nov-2013 11:27 To 08-Nov-2013 17:51 Encounter Diagnosis: BACTERIAL INFECTION DUE TO PSEUDOMONAS [facility] Order Only 28-Jul-2013 15:54 To 28-Jul-2013 16:10 Encounter Diagnosis: ABNORMAL FINDING ON LUNG IMAGING [facility] Historical Summary 06-Jul-2013 14:42 To 06-Jul-2013 14:44 Encounter Reason: ASTHMA, FOLLOW UP - The last clinic visit was 1 month(s) ago (primary is Dr. Donte Mckinney, also seeing [facility] Dr. Knight). No changes in [...] (primary is Dr. Donte Mckinney, also seeing [facility] Dr. Knight). No changes in [...] (primary is Dr. Donte Mckinney, also seeing [facility] Dr. Knight). No changes in [...] (primary is Dr. Donte Mckinney, also seeing [facility] Dr. Knight). No changes in [...] (primary is Dr. Donte Mckinney, also seeing [facility] Dr. Knight). No changes in [...] (primary is Dr. Donte Mckinney, also seeing [facility] Dr. Knight). No changes in [...] Diagnosis: BACTERIAL INFECTION DUE TO PSEUDOMONAS [facility] Office Visit 12-May-2013 14:37 To 12-May-2013 15:37 Encounter Reason: ASTHMA, FOLLOW UP - The last clinic visit was 1 month(s) ago (primary is Dr. Donte Mckinney, also seeing [facility] Dr. Knight). No changes in [...] (primary is Dr. Donte Mckinney, also seeing [facility] blanca Knight). Management changes made [...] (primary is Dr. Donte Mckinney, also seeing [facility] Dr. Knight). Management changes made [...] Encounter Diagnosis: ASTHMA (Renamed from AIRWAY HYPERREACTIVITY) [place] [facility] Medication Order 10-Mar-2013 12:38 To 10-Mar-2013 13:02 Encounter Diagnosis: BACTERIAL INFECTION DUE TO PSEUDOMONAS [facility] Order Only 03-Mar-2013 10:58 To 07-Mar-2013 16:05 Encounter Diagnosis: ABNORMAL FINDING ON LUNG IMAGING [place] [facility] Office Visit 02-Mar-2013 15:20 To 02-Mar-2013 16:32 Encounter Reason: ASTHMA, FOLLOW UP - The last clinic visit was 7 month(s) ago (primary is Dr. Donte Mckinney). Management [facility] Office changes made at the last [...] ago (primary is Dr. Donte Mckinney). Management [facility] Office changes made at the last [...] on cpap nightly. home care company is [employer]. gets supplies prn. able to wear cpap [...] (primary is Dr. Donte Mckinney). No changes [facility] in management were made at the last [...] on cpap nightly. home care company is [employer]. gets supplies prn. ab le to wear cpap all night without any respiratory symptoms. feels more rested with use), allergic rhinitis and gastroesophageal reflux. denies recent hospitalizations. Encounter Diagnosis: PULMONARY NODULE (518.89) , ASTHMA (493.90), PABLITO (OBSTRUCTIVE SLEEP APNEA) (327.23), OBESITY (278.00), AR (ALLERGIC RHINITIS) (477.9), GERD (GASTROESOPHAGEAL REFLUX DISEASE) (530.81) Medication Order 30-Jun-2012 17:24 To 30-Jun-2012 17:26 Encounter Diagnosis: ASTHMA (493.90) [facility] Office Office Visit 04-Feb-2012 14:33 To 04-Feb-2012 15:23 Encounter Reason: Asthma follow up - The last clinic visit was 6 month(s) ago. No changes in management were made at t [facility] Office he last visit. Symptoms include shortness [...] of october or early november by Dr. Knigth)., [ADDITIONAL REASON] Sleep follow up - The sleep disorder is characterized as obstructive sleep apnea. The patient gets approximately 7 hours of sleep per night. Current treatment includes CPAP therapy (home care company is [employer], mask fits, has humidity. gets mask/supplies prn). [...] ago. Management changes made at the last [facility] Office it include adding symbicort 160/4.5 [...] Historical Summary 03-Aug-2011 19:22 To 03-Aug-2011 19:23 [facility] Office Medication Order 09-Jul-2011 8:23 To 09-Jul-2011 8:26 Encounter Diagnosis: AR (ALLERGIC RHINITIS) ( 477.9) [facility] Office Visit 01-May-2011 10:18 To 01-May-2011 11:38 Encounter Reason: Sleep Follow Up PHP - The sleep disorder is characterized as obstructive sleep apnea. The last clinic [facility] Office visit was 6 month(s) ago. Management [...] Historical Summary 30-Apr-2011 11:48 To 30-Apr-2011 12:19 [facility] Payers [employer] [place] [address] [facility] [id number] [place] Group Number: [id number] tel: [employer] [address] [address] [place] [address] [place] Group Number: [id number] tel: RICHIE HADDAD [address] [place] [id number] [place] tel:
--- OUTSIDE RECORDS SUMMARY | 2019-07-13 12:33 | XMS REPORT | Continuity of Care Document ---
:1935 Author Name Loom Fixer Apprentice, System Address Unavailable Unavailable , Care Team Providers Name Role Phone Faye DUFFY, Donte Unavailable Denver Hudson DO Unavailable NATALYA DUFFY, LASHAY Lugo Unavailable Antonia DUFFY, Saul Brady Unavailable Ranulfo DUFFY, Maryann Unavailable HOACSHAZIA, Hematology DIrect Address Unavailable Unavailable LawEdmundo M Unavailable Floyd DUFFY, Amisha Caldwell Unavailable Tasha DPM, Main Unavailable Beaudin SUPPLY SPECIALIST, Kobe Unavailable Unavailable Elizabeth Msn Npc, Mela Le Unavailable Davin SUPPLY SPECIALIST, Yvette Unavailable Unavailable Marlyn MSN, NPC, Gregoria Unavailable Margo SUPPLY SPECIALIST, Yael Unavailable Unavailable Matti DUFFY, Dr. Guero Melo Unavailable Hilary MSN NPC, Sia Unavailable Nav LRT, Piper Unavailable Unavailable Loveless SUPPLY SPECIALIST, Ally Unavailable Unavailable Flaherty LRT, Guero Unavailable Unavailable More LRT, Tera Unavailable Unavailable Rodriguez SUPPLY SPECIALIST, Pancho Unavailable Unavailable Taylor SUPPLY SPECIALIST, Briseida Unavailable Unavailable Reginald PEDIATRIC PHYSICAL THERAPIST, Reji Unavailable Unavailable Cristopher SUPPLY SPECIALIST, December Unavailable Unavailable Unavailable Unavailable Problems ABNORMAL FINDING ON LUNG IMAGING (R91.8) (793.19) DO Denver Hudson Comments: L > R upper lobe scarring, RUL plate like scarring. new RML and RLL scarring vs atelectasis. 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 Infectious diseases reviewed her sputum culture studies on August which revealed growth of Pseudomonas, Brahanmella, and staphylococcus and wondered if this was colonization or whether antibiotics were needed. She has been on antibiotics since last seen and al so had a course of prednisone. She has been fairly stable but is worse in the last few days. She has lost 6 pounds in weight and denies any new interval medical problems.Her exam is unchanged from pre vious.He level is normal at 8.CT chest is compared to February 16, 2018 and reveals some waxing and waning of abnormalities.Pulmonary function test reveals stable moderate airways obstruction with mild res triction with the patient unable to perform the diffusion capacity maneuver.My impressions are unchanged. I do think that with her increased symptoms lately I would like to approach this with Oscar tracy and have her hold her Spiriva and Dulera. I've asked her to take in copious fluids and use Mucinex twice a day, to continue the remainder of her regimen, to see if her immunoglobulin infusions can be covered by insurance, and to call us with problems. She is scheduled for reassessment in 4 months with appropriate studies. as of 17-Nov-2018 GERD (GASTROESOPHAGEAL REFLUX DISEASE) (K21.9) (530.81) DO [...] 5-6 months with appropriate studies. as of 17-Nov-2018 PULMONARY HYPERTENSION (Renamed from HYPERTENSIVE PULMONARY VASCULAR [...] ZyrTEC *ANTIHISTAMINES* (Allergy) Comments: retains fluids Medications Albuterol Sulfate (2.5 MG/3ML) 0.083% Inhalation Nebulization Solution; 1 (one ) Nebulized Soln four times daily, as needed for 30 days Ordered: 02-Apr-2017 Start: 02-Apr-2017 Quantity: 3 {Box} ALEXIA Cline, NPC Gregoria Comments: Medication taken as needed. Refills: 3 LURDES ALLERGY, 180MG (Oral Tablet); 1 daily (180 MG) AmLODIPine Besylate 10 MG Oral Tablet; 1 daily (10 MG) CALCIUM-VITAMIN D, [id number] (Oral Tablet); three times daily (250-125 MG-UNIT) Chlorthalidone 25 MG Oral Tablet; 1 daily (25 MG) CloNIDine HCl 0.1 MG Oral Tablet; 1 three times daily (0.1 MG) CPAP ( Device) (Free Text); Comments: [facility] +8 cm at bedtime Dulera 200-5 MCG/ACT Inhalation [...] am 1pm two times daily (20 MG) LASIX, 40MG (Oral Tablet); two times daily (40 MG) LEVEMIR, 100UNIT/ML (Subcutaneous Solution); UAD (100 UNIT/ML) [...] {Inhalation} MD Guero Chino Dr. Refills: 5 VITAMIN D, 1000UNIT (Oral Capsule); daily (1000 UNIT) ADVAIR DISKUS, 250-50MCG/DOSE (Inhalation Aerosol Powder Breath Activated); 1 Puff(s) two times daily for 0 days Ordered: 02-Mar-2013 Start: 07-Oct-2012 End : 02-Mar-2013 Quantity: 1 {Inhaler(s)} PURA Woods Status: Inactive Refills: 5 ADVAIR DISKUS, 250-50MCG/DOSE Status: Inactive (Inhalation Aerosol Powder Breath Activated); two times daily (250-50 MCG/DOSE) ALBUTEROL SULFATE HFA, 108 (90 Status: Inactive Base)MCG/ACT (Inhalation Aerosol Solution); qid prn (108 (90 Base) MCG/ACT) ALENDRONATE SODIUM, 70MG (Oral Status: Inactive Tablet); weekly (70 MG) Amoxicillin-Pot Clavulanate 875-125 MG Oral Tablet; 1 (one) Tablet two times daily for 10 days Ordered: 20-Apr-2019 Start: 20-Apr-2019 End: 30-Apr-2019 Quantity: 20 {Tablet} ALEXIA Cline NPC Jillian Status: Inactive Refills: 0 Cipro 500 MG [...] (External Status: Inactive Lotion); uAD (1 %) MAGNESIUM OXIDE, 400MG (Oral Status: Inactive Tablet); [...] 0 Comments: 30mg po x 2 days, [id number] po x 2 days [id number] po x 2 days, then stop Qvar [...] End: 09-Jan-2017 Quantity: 1 {Package} ALEXIA Cline, KANE Kinney Status: Inactive Refills: 0 LURDES ALLERGY, 180MG (Oral End: 12-May-2013 Tablet); daily (180 MG) Status: Discontinued BACTRIM, 400-80MG (Oral End: 04-May-2014 Tablet); daily (400-80 MG) Status: Discontinued EVISTA, 60MG (Oral Tablet); End: 06-May-2015 daily (60 MG) Status: Discontinued MELOXICAM, 7.5MG (Oral End: 07-Oct-2012 Tablet); daily (7.5 MG) Status: Discontinued MIACALCIN, 200UNIT/ACT [...] (500 MG) Procedures EXHALED NITRIC OXIDE MEASUREMENT Date: 01-Aug-2018 Status: Completed 2018 (07889) AIRFLOW RESISTANCE MEASUREMENT: Status: Completed 17-Nov-2018 PULM FUNCT TEST OSCILLOMETRY (54492) THORACIC GAS VOLUME: AIRWAY Status: Completed 17-Nov-2018 CLOSING VOLUME MEASUREMENT: PULM FUNCTION TEST BY GAS (22476) TOTAL VITAL CAPACITY (16566) Status: Completed 17-Nov-2018 MEASUREMENT OF NITRIC Status: Completed 17-Nov-2018 OXIDE (69666) MEASUREMENT OF NITRIC Status: Completed 08-Jun-2018 OXIDE (18009) RESPIRATORY FLOW VOLUME LOOP Status: Completed 08-Jun-2018 (18644) TOTAL VITAL CAPACITY (67183) Status: Completed 16-Feb-2018 TOTAL BODY PLETHYSMOGRAPHY: Status: Completed 16-Feb-2018 AIRFLOW RESISTANCE MEASUREMENT (98402) THORACIC GAS VOLUME: AIRWAY Status: Completed 16-Feb-2018 CLOSING VOLUME MEASUREMENT: PULM FUNCTION TEST BY GAS (44789) RESPIRATORY FLOW VOLUME LOOP Status: Completed 16-Feb-2018 (33608) DLCO (CARBON MONOXIDE DIFFUSING Status: Completed 16-Feb-2018 CAPACITY) (31490) AIRFLOW RESISTANCE MEASUREMENT: Status: Completed 16-Feb-2018 PULM FUNCT TEST OSCILLOMETRY (07080) PRE AND POST (49012) Status: Completed 16-Feb-2018 RESPIRATORY FLOW VOLUME LOOP Status: Completed 17-Nov-2017 (15083) TOTAL VITAL CAPACITY (11213) Status: Completed 26-Feb-2017 TOTAL BODY PLETHYSMOGRAPHY (03443) Status: Completed 26-Feb-2017 TGV THORACIC GAS VOLUME: AIRWAY Status: Completed 26-Feb-2017 CLOSING VOLUME MEASUREMENT: PULM FUNCTION TEST BY GAS (25884) RESPIRATORY FLOW VOLUME LOOP Status: Completed 26-Feb-2017 (72453) DLCO (CARBON MONOXIDE DIFFUSING Status: Completed 26-Feb-2017 CAPACITY) (55322) AIRFLOW RESISTANCE MEASUREMENT: Status: Completed 26-Feb-2017 PULM FUNCT TEST OSCILLOMETRY (57302) PRE AND POST (63857) Status: Completed 26-Feb-2017 RESPIRATORY FLOW VOLUME LOOP Status: Completed 09-Sep-2016 (27570) PRE AND POST (69804) Status: Completed 09-Sep-2016 TOTAL VITAL CAPACITY (32884) Status: Completed 17-Apr-2016 TOTAL BODY PLETHYSMOGRAPHY (06734) Status: Completed 17-Apr-2016 TGV THORACIC GAS VOLUME: AIRWAY Status: Completed 17-Apr-2016 CLOSING VOLUME MEASUREMENT: PULM FUNCTION TEST BY GAS (98723) RESPIRATORY FLOW VOLUME LOOP Status: Completed 17-Apr-2016 (37808) DLCO (CARBON MONOXIDE DIFFUSING Status: Completed 17-Apr-2016 CAPACITY) (14797) AIRFLOW RESISTANCE MEASUREMENT: Status: Completed 17-Apr-2016 PULM FUNCT TEST OSCILLOMETRY (23555) PRE AND POST (48604) Status: Completed 17-Apr-2016 RESPIRATORY FLOW VOLUME LOOP Status: Completed 26-Nov-2015 (29225) TOTAL VITAL CAPACITY (05435) Status: Completed 26-Aug-2015 TOTAL BODY PLETHYSMOGRAPHY (88617) Status: Completed 26-Aug-2015 TGV THORACIC GAS VOLUME: AIRWAY Status: Completed 26-Aug-2015 CLOSING VOLUME MEASUREMENT: PULM FUNCTION TEST BY GAS (93377) RESPIRATORY FLOW VOLUME LOOP Status: Completed 26-Aug-2015 (71281) DLCO (CARBON MONOXIDE DIFFUSING Status: Completed 26-Aug-2015 CAPACITY) (58119) AIRFLOW RESISTANCE MEASUREMENT: Status: Completed 26-Aug-2015 PULM FUNCT TEST OSCILLOMETRY (80640) PRE AND POST (46289) Status: Completed 26-Aug-2015 AIRFLOW RESISTANCE MEASUREMENT: Status: Completed 19-Apr-2015 PULM FUNCT TEST OSCILLOMETRY (85151) TOTAL VITAL CAPACITY (86731) Status: Completed 19-Apr-2015 TOTAL BODY PLETHYSMOGRAPHY: AIRWAY Status: Completed 19-Apr-2015 CLOSING VOLUME MEASUREMENT: PULM FUNCT TST PLETHYSMOGRAP (70894) RESPIRATORY FLOW VOLUME LOOP Status: Completed 19-Apr-2015 (19680) THORACIC GAS VOLUME: AIRWAY Status: Completed 19-Apr-2015 CLOSING VOLUME MEASUREMENT: PULM FUNCTION TEST BY GAS (93593) DLCO (CARBON MONOXIDE DIFFUSING Status: Completed 19-Apr-2015 CAPACITY) (97190) PRE AND POST (18339) Status: Completed 19-Apr-2015 RESPIRATORY FLOW VOLUME LOOP Status: Completed 02-Aug-2014 (29159) PRE AND POST (29658) Status: Completed 02-Aug-2014 RESPIRATORY FLOW VOLUME LOOP Status: Completed 21-Mar-2014 (52176) PRE AND POST (08714) Status: Completed 21-Mar-2014 MEDICARE RX CODE: AT LEAST ONE Status: Completed 29-May-2013 PRESCRIPTION CREATED DURING THE ENCOUNTER WAS GENERATED AND TRANSMITTED ELECTRONICALLY USING A QUALIFIED ERX SYSTEM (G8553) RESPIRATORY FLOW VOLUME LOOP Status: Completed 10-Apr-2013 (15231) PRE AND POST (93593) Status: Completed 10-Apr-2013 RESPIRATORY FLOW VOLUME LOOP Status: Completed 02-Mar-2013 (11013) SPIROMETRY WITH BRONCHODILATOR Status: Completed 02-Mar-2013 (25918) MEDICARE RX CODE: AT LEAST ONE Status: Completed 07-Oct-2012 PRESCRIPTION CREATED DURING THE ENCOUNTER WAS GENERATED AND TRANSMITTED ELECTRONICALLY USING A QUALIFIED ERX SYSTEM (G8553) REST/EXERCISE OXIMETRY (96656) Status: Completed 07-Oct-2012 RESPIRATORY FLOW VOLUME LOOP Status: Completed 07-Oct-2012 (19958) PRE AND POST W/ RT (53244) Status: Completed 07-Oct-2012 ACT Status: Completed 03-Feb-2011 [...] no significant change. Chest X-ray Status: Completed 04-May-2014 Comments: no obvious infiltrate, official interpretation and comparison from the radiologist is pending. Chest X-ray Status: Completed 26-Feb-2017 Comments: stable chronic findings, NAD Chest X-ray Status: Completed 03-Jan-2016 Comments: no obvious infiltrate, official interpretation and comparison from the radiologist is pending. Cholecystectomy Status: Completed Apr-2009 Comprehensive Metabolic Panel [...] pending. CT Scan of Chest Status: Completed 11-Oct-2014 Comments: there appears to be improvement in [place]ISE abnormality, no obvious acute disease, official interpretation and comparison from the radiologist is pending. CT Scan of Chest Status: Completed 19-Apr-2015 Comments: Abnormal. Study is compared to October 11, 2014 and reveals an increase in parenchymal disease especially on the right. CT Scan of Chest Status: Completed 21-Nov-2013 [...] disease. CT Scan of Chest Status: Completed 26-Aug-2015 Comments: stable RML nodule, scarring and post op changes on right with new small effusion compared to 05/30/15 CT Scan of Chest Status: Completed 02-Aug-2014 Comments: increased cavitation in PARADISE lesion with 2 new densities-possibly inflammatory/infectious- 6mm RUL and 1.3cm LLL with fu images recommended in 2- [address] Scan of Chest Status: Completed 30-May-2015 Comments: Compared to April 19, 2015 improvement in bilateral lung disease. CT Scan of Chest Status: Completed 16-Feb-2018 Comments: Study is compared to January 08, 2016 and reveals some increase in bilateral parenchymal scarring. CT Scan of Chest Status: Completed 17-Nov-2018 Comments: Abnormal. Study is compared to February 16, 2018 and reveals some waxing and waning of abnormalities. CXR Status: Completed 08-Aug-2012 Comments: no acute disease noted, official interpretation and comparison from the radiologist is pending. FeNO Status: Completed 08-Jun-2018 Comments: < 5 ppb FeNO Status: Completed 01-Aug-2018 Comments: 5 ppb FeNO Status: Completed 17-Nov-2017 Comments: 16 FeNO Status: Completed 17-Nov-2018 Comments: 8 ppb Flu Vaccine Status: Completed 19-Mar-2018 Foot Surgery - Right Status: Completed Dec-2016 Hammer Toe/Bone Spur Status: Completed Comments: in August 2016 Lumbar spinal surgery Status: Completed 1999 Comments: removed cyst Lumpectomy Status: Completed Comments: Right. benign PFT Status: Completed 09-Sep-2016 Comments: Abnormal. Moderate Obstruction. PFT Status: Completed 04-Aug-2011 Comments: Moderate Obstruction. Without Reversibility. PFT Status: Completed 08-Aug-2012 Comments: mod-severe obstruction, FEV1 0.91 L, 58%. decreased from 01/2012 pft Status: Completed 01-May-2011 Comments: Moderate Obstruction. With Reversibility. similar to 12/2010 ACT Status: Completed 07-Oct-2012 Comments: Moderate Obstruction. FEV1 1.01 L, 64%. improved from 08/08/12 PFT Status: Completed 17-Nov-2018 Comments: Abnormal. Moderate Obstruction. Mild Restriction. PFT Status: Completed 01-Aug-2018 Comments: Moderate Obstruction. PFT Status: Completed 08-Jun-2018 Comments: Moderate Obstruction. stable PFT Status: Completed 04-Feb-2012 Comments: Moderate Obstruction. FEV1 1.06 L, 68%. stable PFT Status: Completed 19-Apr-2015 Comments: Abnormal. Moderate Obstruction. No Restriction. Moderate Diffusion Defect. Airways obstruction is similar to October 11, 2014, lung volumes similar to November 21, 2013, diffusion defect worse than November 21, 2013. PFT Status: Completed 26-Nov-2015 Comments: Abnormal. Moderate Obstruction. PFT Status: Completed 16-Feb-2018 Comments: Abnormal. Mild to moderate airways obstruction with normal lung volumes and severe diffusion defect. PFT Status: Completed 30-Nov-2016 Comments: reduced FVC 68%. small airway obstruction PFT Status: Completed 26-Feb-2017 Comments: Moderate Obstruction. No Restriction. Severe Diffusion Defect. FEV1 1.03, 71%. TLC 82, DLCO 50 PFT Status: Completed 02-Aug-2014 Comments: FEV1 1.15 L, 75%. improved from 03/21/14 PFT Status: Completed 21-Mar-2014 Comments: Moderate Obstruction. FEV1 0.99 L, 63% PFT Status: Completed 11-Oct-2014 Comments: Mild Obstruction. FEV1 1.01 L, 72% PFT Status: Completed 17-Apr-2016 Comments: Mild Obstruction. No Restriction. Severe Diffusion Defect. EFV1 1.05, 72%. TLC 79, DLCO 48 PFT Status: Completed 06-Jul-2013 Comments: Abnormal. Moderate Obstruction. Similar to April 10, 2013. PFT Status: Completed 26-Aug-2015 Comments: Moderate Obstruction. Moderate Diffusion Defect. FEV1 1.03 L, 69% . TLC 83, DLCO 54 PFT Status: Completed 21-Nov-2013 Comments: Abnormal. Moderate Obstruction. No Restriction. Moderate Diffusion Defect. airways obstruction is similar to July 06, 2013, diffusion defect worst than August 17, 2007, and lung volumes remain norm al but are slightly worse than July 02, 2003. PFT Status: Completed 02-Mar-2013 Comments: Moderate Obstruction. FEV1 0.96 L, 62%. similar to 10/07/12 PFT Status: Completed 10-Apr-2013 Comments: Mild Obstruction. FEV1 1.08 L, 70%. improved from 03/02/13 Pneumovax Status: Completed 19-Mar-2016 Polysomnography Status: Completed [...] S Status: Completed 06-May-2017 Comments: normal lizzette Tonsillectomy Status: Completed 1936 VATS Status: Completed 25-Jun-2015 Comments: with Dr. Tejeda with RUL, RML, and RLL wedge biopsies and was noted to have mild emphysema, bronchiolitis and non specific necrotizing granuloma. 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 PRE AND POST (19695)Result: Hemoptysis: No Status: Completed 17-Nov-2018 CAT SCAN OF CHEST: CT THORAX W/O DYE (58190)Result: Status: Completed 2018 Are you or could you become ?: No; When was you last CXR/CT?: over week ago; Plating Technician: Tera Bundy LRT PRE AND POST ([id number])Result: Hemoptysis: No Status: Completed 01-Aug-2018 PRE AND POST (97157)Result: Hemoptysis: No Status: Completed 08-Jun-2018 CAT SCAN OF CHEST: CT THORAX W/O DYE (85685)Result: Status: Completed 2017 Are you or could you become ?: No; When was you last CXR/CT?: over a week ago; Plating Technician: JUAN Hurtado PRE AND POST ([id number])Result: Hemoptysis: No Status: Completed 17-Nov-2017 CHEST X-RAY, PA AND LATERAL ([id number])Result: Are you Status: Completed 2016 or could you become ?: No; When was you last CXR/CT?: over week ago; Plating Technician: AJITH BoothT CHEST X-RAY, PA AND LATERAL ([id number])Result: Are you Date: 30-Nov-2016 or could you become ?: No; When was Status: Completed 2016 you last CXR/CT?: over week ago; Plating Technician: Tera Bundy, LRT CHEST X-RAY, PA AND LATERAL ([id number])Result: Are you Date: 30-Nov-2016 or could you become ?: No; When was Status: Completed 2016 you last CXR/CT?: over week ago; Plating Technician: Comments: [facility] at [facility] AJITH BoothT CHEST X-RAY, PA AND LATERAL ([id number])Result: Are you Status: Completed 2016 or could you become ?: No; When was you last CXR/CT?: OVER WEEK AGO; Plating Technician: Tera Bundy, LRT CT THORAX W/O DYE ([id number])Result: Are you or Status: Completed could you become ?: No; When was you last CXR/CT?: over week ago; Plating Technician: Tera Bundy, LRT CT THORAX W/O DYE ([id number])Result: Are you or Status: Completed could you become ?: No; When was you last CXR/CT?: OVER WEEK AGO; Plating Technician: Tera Bundy, LRT CHEST X-RAY, PA AND LATERAL ([id number])Result: Are you Status: Completed 2015 or could you become ?: No; When was you last CXR/CT?: over week ago; Plating Technician: Tera Bundy LRT PRE AND POST ([id number])Result: Hemoptysis: No Status: Completed 26-Nov-2015 CT THORAX W/O DYE ([id number])Result: Are you or Status: Completed 2015 could you become ?: No; When was you last CXR/CT?: over a week ago; Plating Technician: Tera Bundy, LRT CAT SCAN OF CHEST: CT THORAX W/O DYE ([id number])Result: Status: Completed 2014 Are you or could you become ?: No; When was you last CXR/CT?: over a week ago; Plating Technician: Tera Bundy, LRT CAT SCAN OF CHEST: CT THORAX W/O DYE ([id number])Result: Status: Completed 2014 Are you or could you become ?: No; When was you last CXR/CT?: 2014; Plating Technician: Guero Flaherty, LRT CAT SCAN OF CHEST: CT THORAX W/O DYE ([id number])Result: Status: Completed 2014 Are you or could you become ?: No; When was you last CXR/CT?: OVER 1 WEEK AGO; Plating Technician: AJITH BoothT CT THORAX W/O DYE ([id number])Result: Are you or Status: Completed could you become ?: No; When was you last CXR/CT?: 04/01; Plating Technician: JUAN Busch CHEST X-RAY, PA AND LATERAL ([id number])Result: Are you Status: Completed 2013 or could you become ?: No; When was you last CXR/CT?: over 2 months ago; Plating Technician: JUAN Booth CT THORAX W/O DYE ([id number])Result: Are you or Status: Completed 2013 could you become ?: No; When was you last CXR/CT?: last month; Plating Technician: JUAN Booth CT THORAX W/O DYE ([id number])Result: Are you or Date: 21-Nov-2013 could you become ?: No; When was you last Status: Completed 2013 CXR/CT?: last month; Plating Technician: JUAN Busch CAT SCAN OF CHEST: CT THORAX W/O DYE ([id number])Result: Status: Completed 2012 Are you or could you become ?: No; Plating Technician: Rosalinda Rodriguez LPN CT THORAX W/O DYE ([id number])Result: Are you or Status: Completed 2012 could you become ?: No; Plating Technician: JUAN Booth ACT: ASSESSMENT OF DISEASE: [...] Score: 17 CHEST X-RAY, PA AND LATERAL ([id number])Result: Are you Status: Completed 2012 or could you become ?: No; Plating Technician: Tera More, LRT Asthma Control Test (ACT)Result: [Questions] In the [...] Score] Score: 19 RESPIRATORY FLOW VOLUME LOOP (85516)Result: Date: 04-Aug-2011 Hemoptysis: No; Medication Used: Albuterol 0.083% kendell aerosol; Gear Hobber Set Up Operator: Reji Montelongo RRT RESPIRATORY FLOW VOLUME LOOP ([id number])Result: Date: 01-May-2011 Hemoptysis: No; Medication Used: Albuterol 0.083% kendell aerosol; Gear Hobber Set Up Operator: aYel Aragon LPN Immunizations Influenza (3 years and [...] Skin Test, Intradermal On: 03-Mar-2013 Lot #: [id number] Family History Allergic Rhinitis Status: Active Comments: Father. Emphysema Status: Active Comments: Father. Social History Alcohol use: Occasional alcohol use. Current work status: Retired. Marital status: . No caffeine use No drug use Tobacco use: Never smoker. Never smoker Female Plan of Treatment REST OXIMETRY (41755) Start: 17-Nov-2018 Intent CONTINUOUS OVERNIGHT OXIMETRY Start: 08-Jun-2018 Intent (34964) Comments: on cpap REST OXIMETRY (88448) Start: 16-Feb-2018 Intent EXHALED NITRIC OXIDE MEASUREMENT Start: 17-Nov-2017 Intent (35135) Comments: Evaluated patient's nitric oxide. The results were 16 ppb RESPIRATORY FLOW VOLUME LOOP (14044) Start: 30-Nov-2016 Intent SIMPLE PFT: BASELINE PULMONARY Start: 30-Nov-2016 Intent FUNCTION TEST (PFT) (39190) REST OXIMETRY (43668) Start: 09-Sep-2016 Intent REST OXIMETRY (03286) Start: 26-Nov-2015 Intent REST OXIMETRY (62697) Start: 19-Apr-2015 Intent RESPIRATORY FLOW VOLUME LOOP (87373) Start: 11-Oct-2014 Intent PRE AND POST (45866) Start: 11-Oct-2014 Intent REST/ EXERCISE OXIMETRY (73580) Start: 21-Nov-2013 Intent TOTAL VITAL CAPACITY (59420) Start: 21-Nov-2013 Intent TOTAL BODY PLETHYSMOGRAPHY (64222) Start: 21-Nov-2013 Intent TGV THORACIC GAS VOLUME: AIRWAY Start: 21-Nov-2013 Intent CLOSING VOLUME MEASUREMENT: PULM FUNCTION TEST BY GAS (93438) RESPIRATORY FLOW VOLUME LOOP (24401) Start: 21-Nov-2013 Intent DLCO (CARBON MONOXIDE DIFFUSING Start: 21-Nov-2013 Intent CAPACITY) (38104) AIRFLOW RESISTANCE MEASUREMENT: PULM Start: 21-Nov-2013 Intent FUNCT TEST OSCILLOMETRY (87656) PRE AND POST (80101) Start: 21-Nov-2013 Intent REST OXIMETRY (74757) Start: 06-Jul-2013 Intent RESPIRATORY FLOW VOLUME LOOP (52348) Start: 06-Jul-2013 Intent PRE AND POST (97011) Start: 06-Jul-2013 Intent BRONCHOSCOPY IN ENDO (45919) Start: 12-May-2013 Intent REST/ EXERCISE OXIMETRY (49800) Start: 02-Mar-2013 Intent ACT: ASSESSMENT OF DISEASE: ASTHMA Start: 02-Mar-2013 Intent SYMPTOMS EVALUATE (1005F) REST/EXERCISE OXIMETRY (35542) Start: 08-Aug-2012 Intent RESPIRATORY FLOW VOLUME LOOP (85035) Start: 08-Aug-2012 Intent PRE/POST (96625) Start: 08-Aug-2012 Intent RESPIRATORY FLOW VOLUME LOOP (47974) Start: 04-Feb-2012 Intent EXERCISE OXIMETRY (81271) Start: 04-Feb-2012 Intent REST OXIMETRY (98437) Start: 04-Feb-2012 Intent PRE/POST (41577) Start: 04-Feb-2012 Intent PRE/POST W/ RT (17255) Start: 04-Aug-2011 Intent REST OXIMETRY (90598) Start: 04-Aug-2011 Intent EXERCISE OXIMETRY (52021) Start: 04-Aug-2011 Intent Pre/Post (87457) Start: 01-May-2011 Intent Medical; PRE AND POST PFT - Start: 05-Jun-2019 11:45 Appointment Request [facility] [place] [facility] [place] Nurse Box, SUPPLY SPECIALIST Medical; FOLLOW UP 30 - MD, PPRT, FENO, R/E, moved from 03/22 Start: 2018 12:45 Appointment Request Pulmonary [facility] Office DO [place] [facility]; PRE AND POST PFT - Start: 19-Jun-2019 13:00 Appointment Request Pulmonary [facility] Office Resp Therapy [place], RT SPUTUM CULTURE (26760) Start: 20-Apr-2019 10:48 Request BUN (BLOOD UREA NITROGEN) (41288) Start: 16-Aug-2018 10:40 Request CREATININE BLOOD (42051) Start: 16-Aug-2018 10:40 Request SPUTUM CULTURE (25555) Start: 11-Aug-2018 11:01 Request SPUTUM CULTURE (42041) Start: 29-Jul-2018 10:01 Request CANDACE SCREEN (88887) Start: 17-Nov-2017 14:20 Request RHEUMATOID FACTOR-QUANT ([id number]) Start: 17-Nov-2017 14:20 Request SED RATE ERYTHROCYTE ([id number]) Start: 17-Nov-2017 14:20 Request Comments: ICD 279.49 RHEUMATOID FACTOR-QUANT ([id number]) Start: 17-Nov-2017 14:19 Request SSVIT-6-AIVYPUPUUXI-TOTAL ([id number]) Start: 17-Nov-2017 14:19 Request NPCMY-1-EJMCCKIDLFS-PHEN ([id number]) Start: 17-Nov-2017 14:19 Request QUANTATATIVE IMMUNOGLOBULINS ([id number]) Start: 17-Nov-2017 14:15 Request IMMUNOGLOBULIN E (IgE) ([id number]) Start: 17-Nov-2017 14:15 Request CBC, PLATELETS & AUT DIFF ([id number]) Start: 17-Nov-2017 14:15 Request SPUTUM CULTURE ([id number]) Start: 16-Oct-2017 14:34 Request CBC, PLATELETS & AUT DIFF ([id number]) Start: 26-Feb-2017 10:15 Request QUANTATATIVE IMMUNOGLOBULINS ([id number]) Start: 26-Feb-2017 10:15 Request IMMUNOGLOBULIN E (IgE) ([id number]) Start: 26-Feb-2017 10:15 Request DYSPNEA : FeNO next visit Indication:DYSPNEA ASTHMA [...] PSEUDOMONAS : Start flutter device- faxed to [employer] Indication:BACTERIAL INFECTION DUE TO PSEUDOMONAS ASTHMA (Renamed from AIRWAY HYPERREACTIVITY) : Continue with Spiriva with 2.5mcg samples to replace low dose for a trial Indication:ASTHMA (Renamed from AIRWAY HYPERREACTIVITY) OBSTRUCTIVE SLEEP APNEA : Change to auto titrating CPAP- faxed to [employer] already Indication:OBSTRUCTIVE SLEEP APNEA ASTHMA (Renamed from AIRWAY HYPERREACTIVITY) : FeNO next visit Indication:ASTHMA (Renamed from AIRWAY HYPERREACTIVITY) ASTHMA (Renamed from AIRWAY HYPERREACTIVITY) : FeNO next visit Indication:ASTHMA (Renamed from AIRWAY HYPERREACTIVITY) ASTHMA (Renamed from AIRWAY HYPERREACTIVITY) : SINAN DUFFY 15- Dr. Denver Hudson Indication:ASTHMA (Renamed from AIRWAY [...] ASTHMA (Renamed from AIRWAY HYPERREACTIVITY) : SINAN DUFFY 15- Dr. Denver Hudson Indication:ASTHMA (Renamed from AIRWAY HYPERREACTIVITY) ASTHMA (Renamed from AIRWAY HYPERREACTIVITY) : Keep upcoming appt as scheduled , but cancel CXR Indication:ASTHMA (Renamed from AIRWAY HYPERREACTIVITY) GERD (GASTROESOPHAGEAL REFLUX DISEASE) : Hold PPI due to patient concerns about side effect potential Indication:GERD (GASTROESOPHAGEAL REFLUX DISEASE) ASTHMA (Renamed from AIRWAY HYPERREACTIVITY) : SINAN DUFFY 15- Dr. Denver Hudson Indication:ASTHMA (Renamed from AIRWAY [...] (Renamed from AIRWAY HYPERREACTIVITY) : FU EITHER Tristan patient with Tristan in office Indication:ASTHMA [...] PATIENT Indication:ASTHMA (Renamed from AIRWAY HYPERREACTIVITY) Results SPUTUM CULTURE ([id number]) Ordered On: 09-May-2014 CULTURE, SPUTUM pseudomonas (Normal) SPUTUM CULTURE ([id number]) Ordered On: 20-Apr-2014 CULTURE, SPUTUM e coli Comments: see scanned doc (Normal) UWOHL-2-UDGTZRRRWAG-TOTAL Ordered On: 29-May-2013 ([id number]) SAHVZ-4-JHIEDWILSIQ-TOTAL see scanned doc (Normal) NPMXK-4-WAAZPALDJEF-PHEN Ordered On: 29-May-2013 ([id number]) ATJSG-3-WCMGTWBUBQO-PHEN MM (Normal) IMMUN SUBCLAS-IGG1,2,3 & Ordered On: 29-May-2013 4 ([id number]) IMMUN SUBCLAS-IGG1,2,3 & 4 see scanned doc (Normal) RHEUMATOID FACTOR-QUANT Ordered On: 29-May-2013 ([id number]) RHEUMATOID FACTOR-QUANT Range: 0 [iU] - 15 [iU] see scanned doc [iU] (Normal) ANCA C&P W/REFLEX ([id number]) Ordered On: 29-May-2013 ANCA - C see scanned doc (Normal) CBC & PLATELETS (AUTO) Ordered On: 29-May-2013 ([id number]) BLOOD COUNT, PLATELET, AUTOMATED see scanned doc [...] (Normal) IMMUNOGLOBULIN E (IgE) Ordered On: 29-May-2013 ([id number]) IMMUNOGLOBULIN E (IgE) Range: 0 mg/dL - 380 mg/dL see scanned doc mg/dL (Abnormal) ACID FAST CUL/SMEAR Ordered On: 17-May-2013 ACID FAST CUL/SMEAR See Comments: SPECIMEN DESCRIPTION Note (Normal) BRONCHIAL WASHINGSSPECIAL REQUESTS ...ACID FAST SMEAR NO ACID FAST BACILLI (CONCENTRATED SMEAR)CULTURE RESULTS NO ACID FAST BACILLI ISOLATED AFTER 8 WEEKSREPORT STATUS FINAL 07/12/2013Unless otherwise specified, testing performed by [facility] [address] [place] [address] 56359 FUNGUS CULTURE Ordered On: 17-May-2013 FUNGUS CULTURE See Note Comments: SPECIMEN DESCRIPTION (Normal) BRONCHIAL WASHINGSSPECIAL REQUESTS NONECULTURE RESULTS BROOKE ALBICANSREPORT STATUS FINAL 06/14/2013Unless otherwise specified, testing performed by [facility] [address] [place] [address] 94398 LEGIONELLA CULTURE Ordered On: 17-May-2013 LEGIONELLA CULTURE See Comments: SPECIMEN DESCRIPTION Note (Normal) BRONCHIAL WASHINGSSPECIAL REQUESTS NONECULTURE RESULTS CULTURE DISCONTINUED DUE TO BACTERIAL CONTAMINAT IONREPORT STATUS FINAL 05/19/2013Unless otherwise specified, testing performed by [facility] [address] [place] [address]1990 LEGIONELLA DFA Ordered On: 17-May-2013 LEGIONELLA DFA See Note Comments: SPECIMEN DESCRIPTION (Normal) BRONCHIAL WASHINGSSPECIAL REQUESTS NONERESULT NEGATIVE FOR LEGIONELLA PNEUMOPHILA BY DFAREPORT STATUS FINAL 05/17/2013Unless otherwise specified, testing performed by [facility] [address] [place] [address] 08693 RESPIRATORY CULTURE Ordered On: 17-May-2013 RESPIRATORY CULTURE [...] <=1 SUSCEPTIBLEUnless otherwise specified, testing performed by [facility] [address] [place] [address] 45071 PT (PROTHROMBIN TIME) Ordered On: 12-May-2013 ([id number]) INR 0.95 (Normal) Comments: SUGGESTED THERAPEUTIC RANGES USING INR FORSTABILIZED ANTICOAGULATED PATIENTS:STANDARD DOSE THERAPY INR 2.0-3.0 DVT, PE, PREVENT DVT OR EMBOLISMHIGH DOSE THERAPY INR 2.5-3.5 PREVENT EMBOLISM FROM MECHANICAL HEART VALVEUnless otherwise specified, testing performed by [facility] [address] [place] [address] 85699 PT 10.5 {SEC} (Normal) Range: 9.2 {SEC} - 11.9 {SEC} PLATELET COUNT ([id number]) Ordered On: 12-May-2013 PLT 301 10*3/uL (Normal) Range: 150 10*3/uL - 400 10*3/uL Comments: Unless otherwise specified, testing performed by [facility] [address] [place] [address] 11070 PTT (ACTIVATED PARTIAL Ordered On: 12-May-2013 THROMBOPLASTIN TIME) ([id number]) APTT 27.1 {SEC} (Normal) Range: 22.0 {SEC} - 32.6 {SEC} Comments: Unless otherwise specified, testing performed by [facility] [address] [address] SKIN TEST INTRADERMAL TB Ordered On: 03-Mar-2013 Comments: LA LOT# [id number] EXP : (04420) 03/2014 SKIN TEST INTRADERMAL TB Comments: negative negative (Normal) SPUTUM AFB ([id number]) Ordered On: 02-Mar-2013 Comments: x 3 TUBERCLE CULTURE negative Comments: also negative on 03/06 and (Normal) 03/07 samples collected SPUTUM CYTOLOGY ([id number]) Ordered On: 06-Mar-2013 SPUTUM CYTOLOGY negative Comments: on both 03/06 and 03/07 (Normal) samples collected SPUTUM CULTURE ([id number]) Ordered On: 02-Mar-2013 CULTURE, SPUTUM abnormal Comments: pseudomonas growth on (Normal) 03/02 and 03/06 samples collected Vital Signs 17-Nov-2018 13:29 Temperature 97.5 f Comments: Method: [...] Scanned Document is available upon request. Encounters Order Only 20-Apr-2019 10:46 To 20-Apr-2019 10:49 Encounter Diagnosis: ACUTE BRONCHITIS [facility] [place] 17-Nov-2018 13:45 To 11-Nov-2018 9:02 Encounter Reason: ASTHMA, FOLLOW UP - The last clinic visit was 4 month(s) ago (And since that appointment the patient [facility] Office has seen infectious disease August 23, [...] (sleep apnea, using cpap nightly. home care c [place] is [employer]. no issues and no [...] month(s) ago (And since that appointment the [facility] Office has seen infectious disease August [...] using cpap nightly. home care company is [employer]. no issues and no snoring with cpap [...] Historical Summary 17-Nov-2018 13:45 To 17-Nov-2018 13:45 [facility] Office Transition of Care 29-Aug-2018 7:49 To 29-Aug-2018 7:51 Encounter Diagnosis: IGG DEFICIENCY [facility] Office Order Only 16-Aug-2018 10:36 To 16-Aug-2018 10:40 Encounter Diagnosis: ACUTE BRONCHITIS [facility] Office Order Only 11-Aug-2018 11:01 To 11-Aug-2018 11:05 Encounter Diagnosis: ABNORMAL SPUTUM [facility] [place] 01-Aug-2018 9:30 To 02-Aug-2018 10:32 Encounter Reason: ASTHMA, FOLLOW UP - The last clinic visit was 2 month(s) ago. Management changes made at the last [facility] Office it include changing the [...] using cpap nightly. home care company is [employer]. no issues and no s noring with [...] To 29-Jul-2018 10:03 Encounter Diagnosis: ACUTE BRONCHITIS [facility] Office Medication Order 05-Jul-2018 15:48 To 05-Jul-2018 15:50 Encounter Diagnosis: ASTHMA (Renamed from AIRWAY HYPERREACTIVITY) [facility] Office Visit 08-Jun-2018 10:21 To 08-Jun-2018 13:45 Encounter Reason: ASTHMA, FOLLOW UP - The last clinic visit was 3 month(s) ago. No changes in management were made at [facility] Office he last visit. The patient's asthma [...] By report there is good compliance with [facility] ent, good tolerance of treatment and fair [...] 16:39 Encounter Diagnosis: CARCINOID TUMOR OF LUNG [facility] Office Historical Summary 16-Feb-2018 11:38 To 16-Feb-2018 11:40 Encounter Reason: ASTHMA, FOLLOW UP - The last clinic visit was 3 month(s) ago. Management changes made at the last [facility] it include ordering tests. The patient's [...] Historical Summary 16-Feb-2018 11:09 To 16-Feb-2018 11:09 [facility] Office Visit 16-Feb-2018 10:36 To 16-Feb-2018 12:04 Encounter Reason: ASTHMA, FOLLOW UP - The last clinic visit was 3 month(s) ago. Management changes made at the last vis [facility] it include ordering tests. [...] Historical Summary 04-Feb-2018 14:15 To 04-Feb-2018 14:21 [facility] Office Order Only 17-Nov-2017 15:48 To 17-Nov-2017 15:51 Encounter Diagnosis: ABNORMAL FINDING ON LUNG IMAGING [facility] Office Visit 17-Nov-2017 13:49 To 17-Nov-2017 14:24 Encounter Reason: ASTHMA, FOLLOW UP - The last clinic visit was 9 month(s) ago (and has lost 9# since last seen, had [facility] Office t knee surgery 2 weeks ago [...] ago. Management changes made at the last [facility] Office it include none (except [...] Historical Summary 13-Nov-2017 10:06 To 13-Nov-2017 10:09 [facility] Order Only 03-May-2017 14:33 To 03-May-2017 14:35 Encounter Diagnosis: ASTHMA (Renamed from AIRWAY HYPERREACTIVITY) [facility] Office Historical Summary 05-Apr-2017 16:16 To 05-Apr-2017 16:23 Encounter Diagnosis: ASTHMA (Renamed from AIRWAY HYPERREACTIVITY) [facility] Office Medication Order 02-Apr-2017 11:02 To 02-Apr-2017 11:54 Encounter Diagnosis: ACUTE BRONCHITIS [facility] Office Office Visit 26-Feb-2017 8:56 To 26-Feb-2017 11:06 Encounter Reason: ASTHMA, FOLLOW UP - The last clinic visit was 3 month(s) ago (primary is Dr. Donte Mckinney). No changes [facility] [place] were made at the last [...] To 08-Feb-2017 11:56 Encounter Diagnosis: ABNORMAL SPUTUM [facility] [place] 04-Feb-2017 14:17 To 04-Feb-2017 14:21 Encounter Diagnosis: ASTHMA (Renamed from AIRWAY HYPERREACTIVITY) [facility] Office Order Only 30-Nov-2016 15:44 To 30-Nov-2016 15:45 Encounter Diagnosis: ASTHMA (Renamed from AIRWAY HYPERREACTIVITY) [facility] Office Office Visit 30-Nov-2016 15:01 To 30-Nov-2016 15:48 Encounter Reason: ASTHMA, FOLLOW UP - The last clinic visit was 3 month(s) ago (primary is Dr. Donte Mckinney). No changes [facility] Office in management were made [...] was 5 month(s) ago (and hospitalized in [place] 08/23-08/27/19 [facility] 17 with pneumonia and still not [...] Encounter Diagnosis: ABNORMAL FINDING ON LUNG IMAGING [facility] Order Only 03-Jan-2016 8:56 To 03-Jan-2016 10:08 Encounter Diagnosis: ABNORMAL FINDING ON LUNG IMAGING [facility] Office Visit 03-Jan-2016 8:04 To 03-Jan-2016 [...] Encounter Diagnosis: ABNORMAL FINDING ON LUNG IMAGING [facility] Historical Summary 26-Nov-2015 14:51 To 26-Nov-2015 [...] ago (primary is Dr. Donte Mckinney). Management [facility] changes made at the last visit [...] 11:02 Encounter Diagnosis: CARCINOID TUMOR OF LUNG [facility] Office Office Visit 26-Aug-2015 10:19 To 26-Aug-2015 14:58 Encounter Reason: ASTHMA, FOLLOW UP - The last clinic visit was 3 month(s) ago (primary is Dr. Donte Mckinney). Management [facility] Office changes made at the last [...] Management changes made at the last [facility] Office t include none (and [...] is Dr. Donte Mckinney). No changes i [facility] n management were made at the [...] Encounter Diagnosis: ASTHMA (Renamed from AIRWAY HYPERREACTIVITY) [facility] Order Only 22-Apr-2015 14:19 To 22-Apr-2015 14:23 Encounter Diagnosis: ABNORMAL FINDING ON LUNG IMAGING [facility] Historical Summary 19-Apr-2015 13:28 To 19-Apr-2015 13:31 [facility] Historical Summary 19-Apr-2015 12:53 To 19-Apr-2015 12:54 Encounter Reason: ASTHMA, FOLLOW UP - The last clinic visit was 6 month(s) ago (primary is Dr. Donte Mckinney, also seeing [facility] Dr. Knight). Management changes made at [...] increased cough when she is on the jv compared to weeks off vj. just now [...] (primary is Dr. Donte Mckinney, also seeing [facility] Dr. Knight). Management changes made at [...] (primary is Dr. Donte Mckinney, also seeing [facility] Dr. Knight). Management changes made [...] Encounter Diagnosis: BACTERIAL INFECTION DUE TO PSEUDOMONAS [facility] Office Visit 02-Aug-2014 10:32 To 02-Aug-2014 16:02 Encounter Reason: ASTHMA, FOLLOW UP - The last clinic visit was 3 month(s) ago (primary is Dr. Donte Mckinney, also seeing [facility] Dr. Knight). Management changes made at [...] (primary is Dr. Donte Mckinney, also seeing [facility] Dr. Knight). Management changes made [...] Encounter Diagnosis: ASTHMA (Renamed from AIRWAY HYPERREACTIVITY) [facility] Order Only 18-Apr-2014 15:07 To 18-Apr-2014 15:08 Encounter Diagnosis: BACTERIAL INFECTION DUE TO PSEUDOMONAS [facility] Medication Order 11-Apr-2014 14:55 To 11-Apr-2014 15:06 Encounter Diagnosis: BACTERIAL INFECTION DUE TO PSEUDOMONAS [facility] Office Visit 21-Mar-2014 9:37 To 21-Mar-2014 13:33 Encounter Reason: ASTHMA, FOLLOW UP - The last clinic visit was 3 month(s) ago (primary is Dr. Donte Mckinney, also seeing [facility] Dr. Knight). No changes in management [...] (primary is Dr. Donte Mckinney, also seeing [facility] Dr. Knight). No changes in [...] Encounter Diagnosis: BACTERIAL INFECTION DUE TO PSEUDOMONAS [facility] Office Medication Order 01-Nov-2013 11:27 To 08-Nov-2013 17:51 Encounter Diagnosis: BACTERIAL INFECTION DUE TO PSEUDOMONAS [facility] Order Only 28-Jul-2013 15:54 To 28-Jul-2013 16:10 Encounter Diagnosis: ABNORMAL FINDING ON LUNG IMAGING [facility] [place] Summary 06-Jul-2013 14:42 To 06-Jul-2013 14:44 Encounter Reason: ASTHMA, FOLLOW UP - The last clinic visit was 1 month(s) ago (primary is Dr. Donte Mckinney, also seeing [facility] Dr. Knight). No changes in [...] (primary is Dr. Donte Mckinney, also seeing [facility] Dr. Knight). No changes in [...] (primary is Dr. Donte Mckinney, also seeing [facility] Dr. Knight). No changes in management [...] (primary is Dr. Donte Mckinney, also seeing [facility] Dr. Knight). No changes in management [...] (primary is Dr. Donte Mckinney, also seeing [facility] Dr. Knight). No changes in [...] (primary is Dr. Donte Mckinney, also seeing [facility] Dr. Knight). No changes in [...] Diagnosis: BACTERIAL INFECTION DUE TO PSEUDOMONAS [facility] Office Visit 12-May-2013 14:37 To 12-May-2013 15:37 Encounter Reason: ASTHMA, FOLLOW UP - The last clinic visit was 1 month(s) ago (primary is Dr. Donte Mckinney, also seeing [facility] Dr. Knight). No changes in [...] (primary is Dr. Donte Mckinney, also seeing [facility] blanca Knight). Management changes [...] (primary is Dr. Donte Mckinney, also seeing [facility] Dr. Knight). Management changes made [...] Encounter Diagnosis: ASTHMA (Renamed from AIRWAY HYPERREACTIVITY) [facility] Medication Order 10-Mar-2013 12:38 To 10-Mar-2013 13:02 Encounter Diagnosis: BACTERIAL INFECTION DUE TO PSEUDOMONAS [facility] Order Only 03-Mar-2013 10:58 To 07-Mar-2013 16:05 Encounter Diagnosis: ABNORMAL FINDING ON LUNG IMAGING [facility] Office Visit 02-Mar-2013 15:20 To 02-Mar-2013 16:32 Encounter Reason: ASTHMA, FOLLOW UP - The last clinic visit was 7 month(s) ago (primary is Dr. Donte Mckinney). Management [facility] Office changes made at the last [...] ago (primary is Dr. Donte Mckinney). Management [facility] changes made at the last [...] on cpap nightly. home care company is [employer]. gets supplies prn. able to wear cpap [...] (primary is Dr. Donte Mckinney). No changes [facility] [place] management were made at the last [...] on cpap nightly. home care company is [employer]. gets supplies prn. ab le to wear cpap all night without any respiratory symptoms. feels more rested with use), allergic rhinitis and gastroesophageal reflux. denies recent hospitalizations. Encounter Diagnosis: PULMONARY NODULE (518.89) , ASTHMA (493.90), PABLITO (OBSTRUCTIVE SLEEP APNEA) (327.23), OBESITY (278.00), AR (ALLERGIC RHINITIS) (477.9), GERD (GASTROESOPHAGEAL REFLUX DISEASE) (530.81) Medication Order 30-Jun-2012 17:24 To 30-Jun-2012 17:26 Encounter Diagnosis: ASTHMA (493.90) [facility] Office Office Visit 04-Feb-2012 14:33 To 04-Feb-2012 15:23 Encounter Reason: Asthma follow up - The last clinic visit was 6 month(s) ago. No changes in management were made at t [facility] Office he last visit. Symptoms include [...] includes CPAP therapy (home care company is [employer], mask fits, has humidity. gets mask/supplies prn). [...] changes made at the last [facility] Office it include adding symbicort [...] Historical Summary 03-Aug-2011 19:22 To 03-Aug-2011 19:23 [facility] Office Medication Order 09-Jul-2011 8:23 To 09-Jul-2011 8:26 Encounter Diagnosis: AR (ALLERGIC RHINITIS) ( 477.9) [facility] Office Visit 01-May-2011 10:18 To 01-May-2011 11:38 Encounter Reason: Sleep Follow Up PHP - The sleep disorder is characterized as obstructive sleep apnea. The last clinic [facility] Office visit was 6 month(s) ago. [...] control. Encounter Diagnosis: ASTHMA UNSPECIFIED (493.90 ), PBALITO (OBSTRUCTIVE SLEEP APNEA) (327.23), OBESITY (278.00), AR (ALLERGIC RHINITIS) (477.9), GERD (GASTROESOPHAGEAL REFLUX DISEASE) (530.81) Historical Summary 30-Apr-2011 11:48 To 30-Apr-2011 12:19 [facility] Payers [place] [address] [facility] [address] [place] Group Number: NONE tel: [employer] [address] [address] [place] [address] [place] Group Number: NONE tel: RICHIE HADDAD [address] [facility] [address] tel:
--- OUTSIDE RECORDS SUMMARY | 2019-07-13 12:33 | XMS REPORT | Continuity of Care Document ---
:1935 Author Name Loop Machine Operator, System Address Unavailable Unavailable , Care Team Providers Name Role Phone Faye DUFFY, Donte Unavailable Denver Hudson DO Unavailable NATALYA DUFFY, LASHAY Lugo Unavailable Antonia DUFFY, Saul Brady Unavailable Ranulfo DUFFY, Maryann Unavailable HOKERVIN, Hematology DIrect Address Unavailable Unavailable Edmundo Diaz M Unavailable Floyd DUFFY, Amisha Caldwell Unavailable Tasha DPM, Main Unavailable Hilary MSN NPC, [place] Unavailable Elizabeth Msn Npc, Mela Le Unavailable Marlyn MSN, NPC, Gregoria Unavailable Matti DUFFY, Dr. Guero Melo Unavailable Niharika LRT, Tera Unavailable Unavailable Rodriguez BATCHER OPERATOR, Pancho Unavailable Unavailable Reginald ENGINEERING PROGRAM MANAGER, Reji Unavailable Unavailable Cristopher BATCHER OPERATOR, Kavitha Unavailable Unavailable Margo BATCHER OPERATOR, Yael Unavailable Unavailable Loveless BATCHER OPERATOR, Ally Unavailable Unavailable Davin BATCHER OPERATOR, Yvette Unavailable Unavailable Beaudin BATCHER OPERATOR, Kobe Unavailable Unavailable Flaherty LRT, Guero Unavailable Unavailable Taylor BATCHER OPERATOR, Briseida Unavailable Unavailable Harp LRT, Piper Unavailable Unavailable Unavailable Unavailable Problems No Problem Information Available Allergies and Adverse Reactions Levaquin *FLUOROQUINOLONES* (Allergy) Comments: tolerates CIPRO Nucynta ER *ANALGESICS - OPIOID* (Allergy) Sulfa Antibiotics (Allergy) Comments: renal failure ZyrTEC *ANTIHISTAMINES* (Allergy) Comments: retains fluids Medications Albuterol Sulfate (2.5 MG/3ML) 0.083% Inhalation Nebulization Solution; 1 (one ) Nebulized Soln four times daily, as needed for 30 days Ordered: 02-Apr-2017 Start: 02-Apr-2017 Quantity: 3 {Box} Marlyn MSN, NPC Gregoria Comments: Medication taken as needed. Refills: 3 LURDES ALLERGY, 180MG (Oral Tablet); 1 daily (180 MG) AmLODIPine Besylate 10 MG Oral Tablet; 1 daily (10 MG) CALCIUM-VITAMIN D, [id number] (Oral Tablet); three times daily (250-125 MG-UNIT) [...] 2010 Start: 01-May-2011 End: 02-May-2011 Refills: 0 Marlyn, MSN, NPC Gregoria Status: Inactive Comments: cpap mask and supplies; bagmachine checkdx: 327.23 DILTIAZEM HCL ER BEADS, 360MG Status: Inactive (Oral Capsule Extended Release 24 Hour); daily (360 MG) Doxycycline Hyclate 100 MG Oral Capsule; 1 (one) Capsule two times daily for 10 days Ordered: 02-Apr-2017 Start: 02-Apr-2017 End: 12-Apr-2017 Quantity: 20 {Capsule} ALEXIA Cline, NPC Gregoria Status: Inactive Refills: 0 HUMALOG, 100UNIT/ML Status: [...] End: 08-Sep-2018 Quantity: 21 {Tablet} ALEXIA Cline, NPC Gregoria Status: Inactive Refills: 0 Comments: 200mg (2 [...] End: 04-May-2019 Quantity: 12 {Tablet} ALEXIA Cline, NPC Gregoria Status: Inactive Refills: 0 Comments: 30mg po x 2 days, [id number] po x 2 days [id number] po x 2 days, then stop Qvar [...] OXIDE MEASUREMENT Date: 01-Aug-2018 Status: Completed 2018 (44870) AIRFLOW RESISTANCE MEASUREMENT: Status: Completed 17-Nov-2018 PULM FUNCT TEST OSCILLOMETRY (67992) THORACIC GAS VOLUME: AIRWAY Status: Completed 17-Nov-2018 CLOSING VOLUME MEASUREMENT: PULM FUNCTION TEST BY GAS (81733) TOTAL VITAL CAPACITY (67252) Status: Completed 17-Nov-2018 MEASUREMENT OF NITRIC Status: Completed 17-Nov-2018 OXIDE (53027) MEASUREMENT OF NITRIC Status: Completed 08-Jun-2018 OXIDE (49690) RESPIRATORY FLOW VOLUME LOOP Status: Completed 08-Jun-2018 (29358) TOTAL VITAL CAPACITY (31114) Status: Completed 16-Feb-2018 TOTAL BODY PLETHYSMOGRAPHY: Status: Completed 16-Feb-2018 AIRFLOW RESISTANCE MEASUREMENT (10771) THORACIC GAS VOLUME: AIRWAY Status: Completed 16-Feb-2018 CLOSING VOLUME MEASUREMENT: PULM FUNCTION TEST BY GAS (83079) RESPIRATORY FLOW VOLUME LOOP Status: Completed 16-Feb-2018 (64371) DLCO (CARBON MONOXIDE DIFFUSING Status: Completed 16-Feb-2018 CAPACITY) (97050) AIRFLOW RESISTANCE MEASUREMENT: Status: Completed 16-Feb-2018 PULM FUNCT TEST OSCILLOMETRY (48266) PRE AND POST (43363) Status: Completed 16-Feb-2018 RESPIRATORY FLOW VOLUME LOOP Status: Completed 17-Nov-2017 (05870) TOTAL VITAL CAPACITY (09533) Status: Completed 26-Feb-2017 TOTAL BODY PLETHYSMOGRAPHY (46187) Status: Completed 26-Feb-2017 TGV THORACIC GAS VOLUME: AIRWAY Status: Completed 26-Feb-2017 CLOSING VOLUME MEASUREMENT: PULM FUNCTION TEST BY GAS (37182) RESPIRATORY FLOW VOLUME LOOP Status: Completed 26-Feb-2017 (11286) DLCO (CARBON MONOXIDE DIFFUSING Status: Completed 26-Feb-2017 CAPACITY) (99468) AIRFLOW RESISTANCE MEASUREMENT: Status: Completed 26-Feb-2017 PULM FUNCT TEST OSCILLOMETRY (37758) PRE AND POST (56424) Status: Completed 26-Feb-2017 RESPIRATORY FLOW VOLUME LOOP Status: Completed 09-Sep-2016 (67159) PRE AND POST (79842) Status: Completed 09-Sep-2016 TOTAL VITAL CAPACITY (53994) Status: Completed 17-Apr-2016 TOTAL BODY PLETHYSMOGRAPHY (05043) Status: Completed 17-Apr-2016 TGV THORACIC GAS VOLUME: AIRWAY Status: Completed 17-Apr-2016 CLOSING VOLUME MEASUREMENT: PULM FUNCTION TEST BY GAS (21393) RESPIRATORY FLOW VOLUME LOOP Status: Completed 17-Apr-2016 (37059) DLCO (CARBON MONOXIDE DIFFUSING Status: Completed 17-Apr-2016 CAPACITY) (04205) AIRFLOW RESISTANCE MEASUREMENT: Status: Completed 17-Apr-2016 PULM FUNCT TEST OSCILLOMETRY (55755) PRE AND POST (01962) Status: Completed 17-Apr-2016 RESPIRATORY FLOW VOLUME LOOP Status: Completed 26-Nov-2015 (67592) TOTAL VITAL CAPACITY (14557) Status: Completed 26-Aug-2015 TOTAL BODY PLETHYSMOGRAPHY (50573) Status: Completed 26-Aug-2015 TGV THORACIC GAS VOLUME: AIRWAY Status: Completed 26-Aug-2015 CLOSING VOLUME MEASUREMENT: PULM FUNCTION TEST BY GAS (69963) RESPIRATORY FLOW VOLUME LOOP Status: Completed 26-Aug-2015 (21517) DLCO (CARBON MONOXIDE DIFFUSING Status: Completed 26-Aug-2015 CAPACITY) (34733) AIRFLOW RESISTANCE MEASUREMENT: Status: Completed 26-Aug-2015 PULM FUNCT TEST OSCILLOMETRY (60430) PRE AND POST (98345) Status: Completed 26-Aug-2015 AIRFLOW RESISTANCE MEASUREMENT: Status: Completed 19-Apr-2015 PULM FUNCT TEST OSCILLOMETRY (55402) TOTAL VITAL CAPACITY (38944) Status: Completed 19-Apr-2015 TOTAL BODY PLETHYSMOGRAPHY: AIRWAY Status: Completed 19-Apr-2015 CLOSING VOLUME MEASUREMENT: PULM FUNCT TST PLETHYSMOGRAP (97824) RESPIRATORY FLOW VOLUME LOOP Status: Completed 19-Apr-2015 (50452) THORACIC GAS VOLUME: AIRWAY Status: Completed 19-Apr-2015 CLOSING VOLUME MEASUREMENT: PULM FUNCTION TEST BY GAS (32603) DLCO (CARBON MONOXIDE DIFFUSING Status: Completed 19-Apr-2015 CAPACITY) (40317) PRE AND POST (95610) Status: Completed 19-Apr-2015 RESPIRATORY FLOW VOLUME LOOP Status: Completed 02-Aug-2014 (08639) PRE AND POST (41706) Status: Completed 02-Aug-2014 RESPIRATORY FLOW VOLUME LOOP Status: Completed 21-Mar-2014 (29764) PRE AND POST (49598) Status: Completed 21-Mar-2014 MEDICARE RX CODE: AT LEAST ONE Status: Completed 29-May-2013 PRESCRIPTION CREATED DURING THE ENCOUNTER WAS GENERATED AND TRANSMITTED ELECTRONICALLY USING A QUALIFIED ERX SYSTEM (G8553) RESPIRATORY FLOW VOLUME LOOP Status: Completed 10-Apr-2013 (56929) PRE AND POST (14515) Status: Completed 10-Apr-2013 RESPIRATORY FLOW VOLUME LOOP Status: Completed 02-Mar-2013 (29093) SPIROMETRY WITH BRONCHODILATOR Status: Completed 02-Mar-2013 (53672) MEDICARE RX CODE: AT LEAST ONE Status: Completed 07-Oct-2012 PRESCRIPTION CREATED DURING THE ENCOUNTER WAS GENERATED AND TRANSMITTED ELECTRONICALLY USING A QUALIFIED ERX SYSTEM (G8553) REST/EXERCISE OXIMETRY (21937) Status: Completed 07-Oct-2012 RESPIRATORY FLOW VOLUME LOOP Status: Completed 07-Oct-2012 (17865) PRE AND POST W/ RT (17166) Status: Completed 07-Oct-2012 ACT Status: Completed 03-Feb-2011 Comments: 19 CBC Status: Completed 30-May-2013 Comments: Hemoglobin 11.1, [...] radiologist is pending. Chest X-ray Status: Completed 04-May-2014 Comments: no obvious infiltrate, official interpretation and comparison from the radiologist is pending. Chest X-ray Status: Completed 26-Feb-2017 Comments: stable chronic findings, NAD CT chest Status: Completed 28-Feb-2013 Comments: 4.1 cm PARADISE mass with cavitation CT chest Status: Completed 21-Mar-2014 Comments: no obvious change to PARADISE abnormality, official interpretation and comparison from the radiologist is pending. CT Scan of Chest Status: Completed 30-May-2015 [...] months CT Scan of Chest Status: Completed 16-Feb-2018 Comments: Study is compared to January 08, 2016 and reveals some increase in bilateral parenchymal scarring. FeNO Status: Completed 08-Jun-2018 Comments: < 5 ppb FeNO Status: Completed 17-Nov-2018 Comments: 8 ppb FeNO Status: Completed 17-Nov-2017 Comments: 16 PFT Status: Completed 17-Nov-2018 Comments: Abnormal. Moderate Obstruction. Mild Restriction. PFT Status: Completed 26-Nov-2015 Comments: Abnormal. Moderate Obstruction. PFT Status: Completed 04-Aug-2011 Comments: Moderate Obstruction. Without Reversibility. PFT Status: Completed 08-Jun-2018 Comments: Moderate Obstruction. stable PFT Status: Completed 01-Aug-2018 Comments: Moderate Obstruction. PFT Status: Completed 19-Apr-2015 Comments: [...] TLC 79, DLCO 48 PFT Status: Completed 09-Sep-2016 Comments: Abnormal. Moderate Obstruction. Sputum Culture Status: Completed 08-Feb-2017 Comments: MRSA Sputum Culture Status: Completed 27-Jul-2018 Comments: acinetobacter baumannii Sputum Culture Status: Completed Apr-2014 Comments: e coli Sputum gram stain C & S Status: Completed 06-May-2017 Comments: normal lizzette PRE AND POST (97186)Result: Hemoptysis: No Status: Completed 17-Nov-2018 CAT SCAN OF CHEST: CT THORAX W/O DYE (81659)Result: Status: Completed 2018 Are you or could you become ?: No; When was you last CXR/CT?: over week ago; Ticker Maintainer: JUAN Booth PRE AND POST ([id number])Result: Hemoptysis: No Status: Completed 01-Aug-2018 PRE AND POST (54091)Result: Hemoptysis: No Status: Completed 08-Jun-2018 CAT SCAN OF CHEST: CT THORAX W/O DYE (09590)Result: Status: Completed 2017 Are you or could you become ?: No; When was you last CXR/CT?: over a week ago; Ticker Maintainer: JUAN Hurtado PRE AND POST ([id number])Result: Hemoptysis: No Status: Completed 17-Nov-2017 CHEST X-RAY, PA AND LATERAL (29047)Result: Are you Status: Completed 2016 or could you become ?: No; When was you last CXR/CT?: over week ago; Ticker Maintainer: JUAN Booth CHEST X-RAY, PA AND LATERAL (14516)Result: Are you Date: 30-Nov-2016 or could you become ?: No; When was Status: Completed 2016 you last CXR/CT?: over week ago; Ticker Maintainer: JUAN Booth CHEST X-RAY, PA AND LATERAL (40205)Result: Are you Date: 30-Nov-2016 or could you become ?: No; When was Status: Completed 2016 you last CXR/CT?: over week ago; Ticker Maintainer: Comments: today at [facility] JUAN Booth CHEST X-RAY, PA AND LATERAL (56560)Result: Are you Status: Completed 2016 or could you become ?: No; When was you last CXR/CT?: OVER WEEK AGO; Ticker Maintainer: JUAN Booth CT THORAX W/O DYE ([id number])Result: Are you or Status: Completed could you become ?: No; When was you last CXR/CT?: over week ago; Ticker Maintainer: AJITH BoothT CT THORAX W/O DYE ([id number])Result: Are you or Status: Completed could you become ?: No; When was you last CXR/CT?: OVER WEEK AGO; Ticker Maintainer: AJITH BoothT CHEST X-RAY, PA AND LATERAL ([id number])Result: Are you Status: Completed 2015 or could you become ?: No; When was you last CXR/CT?: over week ago; Ticker Maintainer: AJITH BoothT PRE AND POST ([id number])Result: Hemoptysis: No Status: Completed 26-Nov-2015 CT THORAX W/O DYE (03894)Result: Are you or Status: Completed 2015 could you become ?: No; When was you last CXR/CT?: over a week ago; Ticker Maintainer: AJITH BoothT CAT SCAN OF CHEST: CT THORAX W/O DYE ([id number])Result: Status: Completed 2014 Are you or could you become ?: No; When was you last CXR/CT?: over a week ago; Ticker Maintainer: AJITH BoothT CAT SCAN OF CHEST: CT THORAX W/O DYE (43776)Result: Status: Completed 2014 Are you or could you become ?: No; When was you last CXR/CT?: 2014; Ticker Maintainer: AJITH BuschT CAT SCAN OF CHEST: CT THORAX W/O DYE ([id number])Result: Status: Completed 2014 Are you or could you become ?: No; When was you last CXR/CT?: OVER 1 WEEK AGO; Ticker Maintainer: JUAN Booth CT THORAX W/O DYE ([id number])Result: Are you or Status: Completed could you become ?: No; When was you last CXR/CT?: 04/01; Ticker Maintainer: AJITH BuschT CHEST X-RAY, PA AND LATERAL ([id number])Result: Are you Status: Completed 2013 or could you become ?: No; When was you last CXR/CT?: over 2 months ago; Ticker Maintainer: Tera Bundy, AJITHT CT THORAX W/O DYE ([id number])Result: Are you or Status: Completed 2013 could you become ?: No; When was you last CXR/CT?: last month; Ticker Maintainer: JUAN Booth CT THORAX W/O DYE ([id number])Result: Are you or Date: 21-Nov-2013 could you become ?: No; When was you last Status: Completed 2013 CXR/CT?: last month; Ticker Maintainer: JUAN Busch CAT SCAN OF CHEST: CT THORAX W/O DYE ([id number])Result: Status: Completed 2012 Are you or could you become ?: No; Ticker Maintainer: Rosalinda Rodriguez LPN CT THORAX W/O DYE ([id number])Result: Are you or Status: Completed 2012 could you become ?: No; Ticker Maintainer: JUAN Booth ACT: ASSESSMENT OF DISEASE: ASTHMA [...] Score: 17 CHEST X-RAY, PA AND LATERAL (07304)Result: Are you Status: Completed 2012 or could you become ?: No; Ticker Maintainer: JUAN Booth Asthma Control Test (ACT)Result: [Questions] [...] Score] Score: 19 RESPIRATORY FLOW VOLUME LOOP (22930)Result: Date: 04-Aug-2011 Hemoptysis: No; Medication Used: Albuterol 0.083% kendell aerosol; Veterinarian Epidemiologist: Reji Montelongo RRT RESPIRATORY FLOW VOLUME LOOP (75148)Result: Date: 01-May-2011 Hemoptysis: No; Medication Used: Albuterol 0.083% kendell aerosol; Veterinarian Epidemiologist: Yael Aragon LPN Immunizations Influenza (3 years [...] Skin Test, Intradermal On: 03-Mar-2013 Lot #: [id number] Social History No Social History Information Available Unknown if ever smoked Female Plan of Treatment REST OXIMETRY (56709) Start: 17-Nov-2018 Intent CONTINUOUS OVERNIGHT OXIMETRY Start: 08-Jun-2018 Intent (36082) Comments: on cpap REST OXIMETRY (82456) Start: 16-Feb-2018 Intent EXHALED NITRIC OXIDE MEASUREMENT Start: 17-Nov-2017 Intent (64640) Comments: Evaluated patient's nitric oxide. The results were 16 ppb RESPIRATORY FLOW VOLUME LOOP (15495) Start: 30-Nov-2016 Intent SIMPLE PFT: BASELINE PULMONARY Start: 30-Nov-2016 Intent FUNCTION TEST (PFT) (84621) REST OXIMETRY (96635) Start: 09-Sep-2016 Intent REST OXIMETRY (07260) Start: 26-Nov-2015 Intent REST OXIMETRY (91509) Start: 19-Apr-2015 Intent RESPIRATORY FLOW VOLUME LOOP (18064) Start: 11-Oct-2014 Intent PRE AND POST (77493) Start: 11-Oct-2014 Intent REST/ EXERCISE OXIMETRY (20525) Start: 21-Nov-2013 Intent TOTAL VITAL CAPACITY (01599) Start: 21-Nov-2013 Intent TOTAL BODY PLETHYSMOGRAPHY (84217) Start: 21-Nov-2013 Intent TGV THORACIC GAS VOLUME: AIRWAY Start: 21-Nov-2013 Intent CLOSING VOLUME MEASUREMENT: PULM FUNCTION TEST BY GAS (92207) RESPIRATORY FLOW VOLUME LOOP (06847) Start: 21-Nov-2013 Intent DLCO (CARBON MONOXIDE DIFFUSING Start: 21-Nov-2013 Intent CAPACITY) (39467) AIRFLOW RESISTANCE MEASUREMENT: PULM Start: 21-Nov-2013 Intent FUNCT TEST OSCILLOMETRY (79443) PRE AND POST (43782) Start: 21-Nov-2013 Intent REST OXIMETRY (52767) Start: 06-Jul-2013 Intent RESPIRATORY FLOW VOLUME LOOP (82247) Start: 06-Jul-2013 Intent PRE AND POST (37219) Start: 06-Jul-2013 Intent BRONCHOSCOPY IN ENDO (75445) Start: 12-May-2013 Intent REST/ EXERCISE OXIMETRY (04218) Start: 02-Mar-2013 Intent ACT: ASSESSMENT OF DISEASE: ASTHMA Start: 02-Mar-2013 Intent SYMPTOMS EVALUATE (1005F) REST/EXERCISE OXIMETRY (80975) Start: 08-Aug-2012 Intent RESPIRATORY FLOW VOLUME LOOP (91454) Start: 08-Aug-2012 Intent PRE/POST (56604) Start: 08-Aug-2012 Intent RESPIRATORY FLOW VOLUME LOOP (17646) Start: 04-Feb-2012 Intent EXERCISE OXIMETRY (93386) Start: 04-Feb-2012 Intent REST OXIMETRY (14421) Start: 04-Feb-2012 Intent PRE/POST (42437) Start: 04-Feb-2012 Intent PRE/POST W/ RT (63345) Start: 04-Aug-2011 Intent REST OXIMETRY (27129) Start: 04-Aug-2011 Intent EXERCISE OXIMETRY (25048) Start: 04-Aug-2011 Intent Pre/Post (29780) Start: 01-May-2011 Intent Medical; PRE AND POST PFT - Start: 05-Jun-2019 11:45 Appointment Request Pulmonary [facility] Nurse Box, BATCHER OPERATOR Medical; PRE AND POST PFT - Start: 19-Jun-2019 13:00 Appointment Request Pulmonary [facility] Nurse Box, BATCHER OPERATOR SPUTUM CULTURE (58561) Start: 20-Apr-2019 10:48 Request BUN (BLOOD UREA NITROGEN) (71189) Start: 16-Aug-2018 10:40 Request CREATININE BLOOD (23890) Start: 16-Aug-2018 10:40 Request SPUTUM CULTURE (35693) Start: 11-Aug-2018 11:01 Request SPUTUM CULTURE (50124) Start: 29-Jul-2018 10:01 Request CANDACE SCREEN (51113) Start: 17-Nov-2017 14:20 Request RHEUMATOID FACTOR-QUANT (71961) Start: 17-Nov-2017 14:20 Request SED RATE ERYTHROCYTE (23515) Start: 17-Nov-2017 14:20 Request Comments: ICD 279.49 RHEUMATOID FACTOR-QUANT (99096) Start: 17-Nov-2017 14:19 Request WTUIW-1-YJBTQCMIWWW-TOTAL (83729) Start: 17-Nov-2017 14:19 Request XISUH-5-XACHVSGKSZP-PHEN (34390) Start: 17-Nov-2017 14:19 Request QUANTATATIVE IMMUNOGLOBULINS (66865) Start: 17-Nov-2017 14:15 Request IMMUNOGLOBULIN E (IgE) (51568) Start: 17-Nov-2017 14:15 Request CBC, PLATELETS & AUT DIFF (96910) Start: 17-Nov-2017 14:15 Request SPUTUM CULTURE (79075) Start: 03-May-2017 14:34 Request CBC, PLATELETS & AUT DIFF (98281) Start: 26-Feb-2017 10:15 Request QUANTATATIVE IMMUNOGLOBULINS (21951) Start: 26-Feb-2017 10:15 Request IMMUNOGLOBULIN E (IgE) (29223) Start: 26-Feb-2017 10:15 Request FeNO next visit Keep upcoming appt as scheduled Weight loss encouraged We'll call with results Keep upcoming appt as scheduled Start flutter device- faxed to home care company Continue with Spiriva with 2.5mcg samples to replace low dose for a trial Change to auto titrating CPAP- faxed to home care company already FeNO next visit FeNO next visit [facility] [place]- Dr. Denver Hudson Weight loss may help We'll call with results Keep upcoming appt as scheduled Weight loss may help [facility] [place]- Dr. Denver Hudson Keep upcoming appt as scheduled, but cancel CXR Hold PPI due to patient concerns about side effect potential [facility] [place]- Dr. Denver Hudson Consider seeing oncology Keep upcoming appt as scheduled FU MD Annie HUDSON ONLY Continue VJ FU EITHER - Tristan patient with Tristan in office Keep upcoming appt as scheduled FU EITHER - Tristan patient Influenza vaccine seasonally - current FU EITHER - Tristan patient with in office (end jul [address] chest) FU EITHER - Tristan patient CT chest soon FU EITHER - Tristan patient Influenza vaccine seasonally - current FU EITHER - Tristan patient Influenza vaccine seasonally - current Envirnmental controls Continue current medications Avoid triggers Continue current medications Follow up in 3 months FU EITHER Weight Loss discussed need to have cpap available if hospitalized Discussed need to notify all physicians of their diagnosis Discussed possible health risks associated with untreated sleep apnea Discussed possible cardiovascular effects of untreated sleep apnea Continue with Cpap therapy Call with symptoms New device instructed by staff Influenza vaccine in Fall-ALREADY DONE PER PATIENT Results SPUTUM CULTURE (73473) Ordered On: 09-May-2014 CULTURE, SPUTUM pseudomonas (Normal) SPUTUM CULTURE (92984) Ordered On: 20-Apr-2014 CULTURE, SPUTUM e coli Comments: see scanned doc (Normal) [id number]-7-TVJXERTTHSX-TOTAL Ordered On: 29-May-2013 (86068) ICUTH-4-GCESNWVHWFP-TOTAL see scanned doc (Normal) NSQEV-7-OISBVOUFAVC-PHEN Ordered On: 29-May-2013 (81308) HNNJN-4-ZZHKSMAIUOB-PHEN MM (Normal) IMMUN SUBCLAS-IGG1,2,3 & Ordered On: 29-May-2013 4 (02100) IMMUN SUBCLAS-IGG1,2,3 & 4 see scanned doc (Normal) RHEUMATOID FACTOR-QUANT Ordered On: 29-May-2013 (02534) RHEUMATOID FACTOR-QUANT Range: 0 [iU] - 15 [iU] see scanned doc [iU] (Normal) ANCA C&P W/REFLEX (68961) Ordered On: 29-May-2013 ANCA - C see scanned doc (Normal) CBC & PLATELETS (AUTO) Ordered On: 29-May-2013 (09292) BLOOD COUNT, PLATELET, AUTOMATED see scanned doc [...] (Normal) IMMUNOGLOBULIN E (IgE) Ordered On: 29-May-2013 (32400) IMMUNOGLOBULIN E (IgE) Range: 0 mg/dL - 380 mg/dL see scanned doc mg/dL (Abnormal) ACID FAST CUL/SMEAR Ordered On: 17-May-2013 ACID FAST CUL/SMEAR See Comments: SPECIMEN DESCRIPTION Note (Normal) BRONCHIAL WASHINGSSPECIAL REQUESTS ...ACID FAST SMEAR NO ACID FAST BACILLI (CONCENTRATED SMEAR)CULTURE RESULTS NO ACID FAST BACILLI ISOLATED AFTER 8 WEEKSREPORT STATUS FINAL 07/12/2013Unless otherwise specified, testing performed by [facility] [address] [place] [address] 57250 FUNGUS CULTURE Ordered On: 17-May-2013 FUNGUS CULTURE See Note Comments: SPECIMEN DESCRIPTION (Normal) BRONCHIAL WASHINGSSPECIAL REQUESTS NONECULTURE RESULTS BROOKE ALBICANSREPORT STATUS FINAL 06/14/2013Unless otherwise specified, testing performed by [facility] [address] [place] [address] 05773 LEGIONELLA CULTURE Ordered On: 17-May-2013 LEGIONELLA CULTURE See Comments: SPECIMEN DESCRIPTION Note (Normal) BRONCHIAL WASHINGSSPECIAL REQUESTS NONECULTURE RESULTS CULTURE DISCONTINUED DUE TO BACTERIAL CONTAMINAT IONREPORT STATUS FINAL 05/19/2013Unless otherwise specified, testing performed by [facility] [address] [place] [address]4088 LEGIONELLA DFA Ordered On: 17-May-2013 LEGIONELLA DFA See Note Comments: SPECIMEN DESCRIPTION (Normal) BRONCHIAL WASHINGSSPECIAL REQUESTS NONERESULT NEGATIVE FOR LEGIONELLA PNEUMOPHILA BY DFAREPORT STATUS FINAL 05/17/2013Unless otherwise specified, testing performed by [facility] [address] [place] [address]24 RESPIRATORY CULTURE Ordered On: 17-May-2013 RESPIRATORY CULTURE [...] <=1 SUSCEPTIBLEUnless otherwise specified, testing performed by [facility] [address] [place] [address] 53027 PT (PROTHROMBIN TIME) Ordered On: 12-May-2013 (19269) INR 0.95 (Normal) Comments: SUGGESTED THERAPEUTIC RANGES USING INR FORSTABILIZED ANTICOAGULATED PATIENTS:STANDARD DOSE THERAPY INR 2.0-3.0 DVT, PE, PREVENT DVT OR EMBOLISMHIGH DOSE THERAPY INR 2.5-3.5 PREVENT EMBOLISM FROM MECHANICAL HEART VALVEUnless otherwise specified, testing performed by [facility] [address] [place] [address] 09086 PT 10.5 {SEC} (Normal) Range: 9.2 {SEC} - 11.9 {SEC} PLATELET COUNT (18365) Ordered On: 12-May-2013 PLT 301 10*3/uL (Normal) Range: 150 10*3/uL - 400 10*3/uL Comments: Unless otherwise specified, testing performed [place] [facility] [place] [address] PTT (ACTIVATED PARTIAL Ordered On: 12-May-2013 THROMBOPLASTIN TIME) (33457) APTT 27.1 {SEC} (Normal) Range: 22.0 {SEC} - 32.6 {SEC} Comments: Unless otherwise specified, testing performed by [facility] [place] [address] SKIN TEST INTRADERMAL TB Ordered On: 03-Mar-2013 Comments: LA LOT# [id number] EXP : (74917) 03/2014 SKIN TEST INTRADERMAL TB Comments: negative negative (Normal) SPUTUM AFB (11583) Ordered On: 02-Mar-2013 Comments: x 3 TUBERCLE CULTURE negative Comments: also negative on 03/06 and (Normal) 03/07 samples collected SPUTUM CYTOLOGY (47453) Ordered On: 06-Mar-2013 SPUTUM CYTOLOGY negative Comments: on both 03/06 and 03/07 (Normal) samples collected SPUTUM CULTURE (17194) Ordered On: 02-Mar-2013 CULTURE, SPUTUM abnormal Comments: [...] To 20-Apr-2019 10:49 Encounter Diagnosis: ACUTE BRONCHITIS [facility] Historical Summary 17-Nov-2018 13:45 To 11-Nov-2018 9:02 Encounter Reason: ASTHMA, FOLLOW UP - The last clinic visit was 4 month(s) ago (And since that appointment the [facility] has seen infectious disease August 23, 2018 who noted that sputum is growing Pseudomonas, brahanmella, and Staph and wondered whether it was colonization versus culture needing antibiotic therapy.). Ma nagement changes made at the last visit include [...] ago. The episodes occur daily (with recur renmylene URI. has recently been on cipro and [...] month(s) ago (And since that appointment the [facility] Office has seen infectious disease August [...] using cpap nightly. home care company is [employer]. no issues and no snoring with cpap [...] Historical Summary 17-Nov-2018 13:45 To 17-Nov-2018 13:45 [facility] Transition of Care 29-Aug-2018 7:49 To 29-Aug-2018 7:51 Encounter Diagnosis: IGG DEFICIENCY [place] [facility] Office Order Only 16-Aug-2018 10:36 To 16-Aug-2018 10:40 Encounter Diagnosis: ACUTE BRONCHITIS [facility] Office Order Only 11-Aug-2018 11:01 To 11-Aug-2018 11:05 Encounter Diagnosis: ABNORMAL SPUTUM [facility] Office Visit 01-Aug-2018 9:30 To 02-Aug-2018 10:32 Encounter Reason: ASTHMA, FOLLOW UP - The last clinic visit was 2 month(s) ago. Management changes made at the last [facility] Office it include changing the dose [...] using cpap nightly. home care company is [employer]. no issues and no s noring with [...] To 29-Jul-2018 10:03 Encounter Diagnosis: ACUTE BRONCHITIS [facility] Office Medication Order 05-Jul-2018 15:48 To 05-Jul-2018 15:50 Encounter Diagnosis: ASTHMA (Renamed from AIRWAY HYPERREACTIVITY) [facility] Office Office Visit 08-Jun-2018 10:21 To 08-Jun-2018 13:45 Encounter Reason: ASTHMA, FOLLOW UP - The last clinic visit was 3 month(s) ago. No changes in management were made at [facility] Office he last visit. The patient's [...] By report there is good compliance with [facility] ent, good tolerance of treatment and [...] 16:39 Encounter Diagnosis: CARCINOID TUMOR OF LUNG [facility] Office Historical Summary 16-Feb-2018 11:38 To 16-Feb-2018 11:40 Encounter Reason: ASTHMA, FOLLOW UP - The last clinic visit was 3 month(s) ago. Management changes made at the last [facility] Office it include ordering tests. [...] Historical Summary 16-Feb-2018 11:09 To 16-Feb-2018 11:09 [facility] Office Office Visit 16-Feb-2018 10:36 To 16-Feb-2018 12:04 Encounter Reason: ASTHMA, FOLLOW UP - The last clinic visit was 3 month(s) ago. Management changes made at the last [facility] Office it include ordering tests. [...] Historical Summary 04-Feb-2018 14:15 To 04-Feb-2018 14:21 [facility] Office Order Only 17-Nov-2017 15:48 To 17-Nov-2017 15:51 Encounter Diagnosis: ABNORMAL FINDING ON LUNG IMAGING [facility] Office Office Visit 17-Nov-2017 13:49 To 17-Nov-2017 14:24 Encounter Reason: ASTHMA, FOLLOW UP - The last clinic visit was 9 month(s) ago (and has lost 9# since last seen, had ri [facility] Office ght knee surgery 2 weeks ago [...] ago. Management changes made at the last [facility] Office it include none (except [...] Historical Summary 13-Nov-2017 10:06 To 13-Nov-2017 10:09 [facility] Office Order Only 03-May-2017 14:33 To 03-May-2017 14:35 Encounter Diagnosis: ASTHMA (Renamed from AIRWAY HYPERREACTIVITY) [facility] Historical Summary 05-Apr-2017 16:16 To 05-Apr-2017 16:23 Encounter Diagnosis: ASTHMA (Renamed from AIRWAY HYPERREACTIVITY) [facility] Office Medication Order 02-Apr-2017 11:02 To 02-Apr-2017 11:54 Encounter Diagnosis: ACUTE BRONCHITIS [facility] Office Visit 26-Feb-2017 8:56 To 26-Feb-2017 11:06 Encounter Reason: ASTHMA, FOLLOW UP - The last clinic visit was 3 month(s) ago (primary is Dr. Donte Mckinney). No changes [facility] in management were made at the last [...] To 08-Feb-2017 11:56 Encounter Diagnosis: ABNORMAL SPUTUM [facility] Office Historical Summary 04-Feb-2017 14:17 To 04-Feb-2017 14:21 Encounter Diagnosis: ASTHMA (Renamed from AIRWAY HYPERREACTIVITY) [facility] Office Order Only 30-Nov-2016 15:44 To 30-Nov-2016 15:45 Encounter Diagnosis: ASTHMA (Renamed from AIRWAY HYPERREACTIVITY) [facility] Office Visit 30-Nov-2016 15:01 To 30-Nov-2016 15:48 Encounter Reason: ASTHMA, FOLLOW UP - The last clinic visit was 3 month(s) ago (primary is Dr. Donte Mckinney). No changes [facility] Office in management were made at the [...] was 5 month(s) ago (and hospitalized in [place] 08/23-08/27/19 [facility] Office 17 with pneumonia and still [...] Encounter Diagnosis: ABNORMAL FINDING ON LUNG IMAGING [facility] Office Order Only 03-Jan-2016 8:56 To 03-Jan-2016 10:08 Encounter Diagnosis: ABNORMAL FINDING ON LUNG IMAGING [facility] Office Visit 03-Jan-2016 8:04 To 03-Jan-2016 8:48 Encounter Reason: ASTHMA, FOLLOW UP - The last clinic visit was 1 month(s) ago (primary is Dr. Donte Mckinney). Management [facility] Office changes made at the last [...] Encounter Diagnosis: ABNORMAL FINDING ON LUNG IMAGING [facility] Office Historical Summary 26-Nov-2015 14:51 To 26-Nov-2015 14:52 Encounter Reason: ASTHMA, FOLLOW UP - The last clinic visit was 3 month(s) ago (primary is Dr. Donte Mckinney). Management [facility] Office changes made at [...] ago (primary is Dr. Donte Mckinney). Management [facility] changes made at the last [...] 11:02 Encounter Diagnosis: CARCINOID TUMOR OF LUNG [facility] Office Visit 26-Aug-2015 10:19 To 26-Aug-2015 14:58 Encounter Reason: ASTHMA, FOLLOW UP - The last clinic visit was 3 month(s) ago (primary is Dr. Donte Mckinney). Management [facility] Office changes made at the last [...] changes made at the last [facility] Office t include none (and is to [...] is Dr. Donte Mckinney). No changes i [facility] Office n management were made at [...] Encounter Diagnosis: ASTHMA (Renamed from AIRWAY HYPERREACTIVITY) [facility] Order Only 22-Apr-2015 14:19 To 22-Apr-2015 14:23 Encounter Diagnosis: ABNORMAL FINDING ON LUNG IMAGING [facility] Office Historical Summary 19-Apr-2015 13:28 To 19-Apr-2015 13:31 [facility] Office Historical Summary 19-Apr-2015 12:53 To 19-Apr-2015 12:54 Encounter Reason: ASTHMA, FOLLOW UP - The last clinic visit was 6 month(s) ago (primary is Dr. Donte Mckinney, also seeing [facility] Dr. Knight). Management changes made [...] (primary is Dr. Donte Mckinney, also seeing [facility] Dr. Knight). Management changes made [...] (primary is Dr. Donte Mckinney, also seeing [facility] Dr. Knight). Management changes made [...] nightly. no issues). Past evaluation has included [facility] (had URI symptoms in february 2013 [...] Encounter Diagnosis: BACTERIAL INFECTION DUE TO PSEUDOMONAS [facility] Office Visit 02-Aug-2014 10:32 To 02-Aug-2014 16:02 Encounter Reason: ASTHMA, FOLLOW UP - The last clinic visit was 3 month(s) ago (primary is Dr. Donte Mckinney, also seeing [facility] Dr. Knight). Management changes made [...] (primary is Dr. Donte Mckinney, also seeing [facility] Dr. Knight). Management changes made [...] Encounter Diagnosis: ASTHMA (Renamed from AIRWAY HYPERREACTIVITY) [facility] Order Only 18-Apr-2014 15:07 To 18-Apr-2014 15:08 Encounter Diagnosis: BACTERIAL INFECTION DUE TO PSEUDOMONAS [facility] Office Medication Order 11-Apr-2014 14:55 To 11-Apr-2014 15:06 Encounter Diagnosis: BACTERIAL INFECTION DUE TO PSEUDOMONAS [facility] Office Visit 21-Mar-2014 9:37 To 21-Mar-2014 13:33 Encounter Reason: ASTHMA, FOLLOW UP - The last clinic visit was 3 month(s) ago (primary is Dr. Donte Mckinney, also seeing [facility] Dr. Knight). No changes in [...] (primary is Dr. Donte Mckinney, also seeing [facility] Dr. Knight). No changes in [...] Encounter Diagnosis: BACTERIAL INFECTION DUE TO PSEUDOMONAS [facility] Office Medication Order 01-Nov-2013 11:27 To 08-Nov-2013 17:51 Encounter Diagnosis: BACTERIAL INFECTION DUE TO PSEUDOMONAS [facility] Order Only 28-Jul-2013 15:54 To 28-Jul-2013 16:10 Encounter Diagnosis: ABNORMAL FINDING ON LUNG IMAGING [facility] Historical Summary 06-Jul-2013 14:42 To 06-Jul-2013 14:44 Encounter Reason: ASTHMA, FOLLOW UP - The last clinic visit was 1 month(s) ago (primary is Dr. Donte Mckinney, also seeing [facility] Dr. Knight). No changes in [...] (primary is Dr. Donte Mckinney, also seeing [facility] Dr. Knight). No changes in [...] (primary is Dr. Donte Mckinney, also seeing [facility] Dr. Knight). No changes in [...] (primary is Dr. Donte Mckinney, also seeing [facility] Dr. Knight). No changes in [...] (primary is Dr. Donte Mckinney, also seeing [facility] Dr. Knight). No changes in [...] (primary is Dr. Donte Mckinney, also seeing [facility] Dr. Knight). No changes in [...] Encounter Diagnosis: BACTERIAL INFECTION DUE TO PSEUDOMONAS [facility] Office Visit 12-May-2013 14:37 To 12-May-2013 15:37 Encounter Reason: ASTHMA, FOLLOW UP - The last clinic visit was 1 month(s) ago (primary is Dr. Donte Mckinney, also seeing [facility] Dr. Knight). No changes in management [...] (primary is Dr. Donte Mckinney, also seeing [facility] blanca Knight). Management changes made [...] (primary is Dr. Donte Mckinney, also seeing [facility] Dr. Knight). Management changes made [...] tests but does know that her hu sband tests positive from prior exposure in other [...] Encounter Diagnosis: ASTHMA (Renamed from AIRWAY HYPERREACTIVITY) [facility] Office Medication Order 10-Mar-2013 12:38 To 10-Mar-2013 13:02 Encounter Diagnosis: BACTERIAL INFECTION DUE TO PSEUDOMONAS [facility] Office Order Only 03-Mar-2013 10:58 To 07-Mar-2013 16:05 Encounter Diagnosis: ABNORMAL FINDING ON LUNG IMAGING [facility] Office Office Visit 02-Mar-2013 15:20 To 02-Mar-2013 16:32 Encounter Reason: ASTHMA, FOLLOW UP - The last clinic visit was 7 month(s) ago (primary is Dr. Donte Mckinney). Management [facility] changes made at the last [...] ago (primary is Dr. Donte Mckinney). Management [facility] changes made at the last [...] on cpap nightly. home care company is [employer]. gets supplies prn. able to wear cpap [...] (primary is Dr. Donte Mckinney). No changes [facility] Office in management were made at [...] on cpap nightly. home care company is [employer]. gets supplies prn. ab le to wear cpap all night without any respiratory symptoms. feels more rested with use), allergic rhinitis and gastroesophageal reflux. denies recent hospitalizations. Encounter Diagnosis: PULMONARY NODULE (518.89) , ASTHMA (493.90), PABLITO (OBSTRUCTIVE SLEEP APNEA) (327.23), OBESITY (278.00), AR (ALLERGIC RHINITIS) (477.9), GERD (GASTROESOPHAGEAL REFLUX DISEASE) (530.81) Medication Order 30-Jun-2012 17:24 To 30-Jun-2012 17:26 Encounter Diagnosis: ASTHMA (493.90) [facility] Office Office Visit 04-Feb-2012 14:33 To 04-Feb-2012 15:23 Encounter Reason: Asthma follow up - The last clinic visit was 6 month(s) ago. No changes in management were made at t [facility] Office he last visit. Symptoms include [...] ago. Management changes made at the last [facility] Office it include adding symbicort [...] Historical Summary 03-Aug-2011 19:22 To 03-Aug-2011 19:23 [facility] Medication Order 09-Jul-2011 8:23 To 09-Jul-2011 8:26 Encounter Diagnosis: AR (ALLERGIC RHINITIS) ( 477.9) [facility] Office Visit 01-May-2011 10:18 To 01-May-2011 11:38 Encounter Reason: Sleep Follow Up PHP - The sleep disorder is characterized as obstructive sleep apnea. The last clinic [facility] Office visit was 6 month(s) ago. [...] Historical Summary 30-Apr-2011 11:48 To 30-Apr-2011 12:19 [facility] Payers [place] [address] [facility] [address] [place] Group Number: [id number] tel: [employer] [place] [address] [address] [place] [address] [place] Group Number: [id number] tel: RICHIE HADDAD [address] [place] [id number] tel:
--- OUTSIDE RECORDS SUMMARY | 2019-07-13 12:33 | XMS REPORT | Continuity of Care Document ---
:1935 Author Name [employer] [employer] Address Unavailable Unavailable , Care Team Providers Name Role Phone Faye DUFFY, Donte Unavailable Denver Hudson DO Unavailable NATALYA DUFFY, LASHAY Lugo Unavailable Antonia DUFFY, Saul Brady Unavailable Ranulfo DUFFY, Maryann Unavailable HOACSHAZIA, Hematology DIrect Address Unavailable Unavailable LawEdmundo M Unavailable Floyd DUFFY, Amisha Caldwell Unavailable Tasha DPM, Mian Unavailable Davin LINING FELLER, Yvette Unavailable Unavailable Marlyn MSN, NPC, Gregoria Unavailable Margo LINING FELLER, Yael Unavailable Unavailable Loveless LINING FELLER, Ally Unavailable Unavailable Krystina LRT, Guero Unavailable Unavailable Michael LINING FELLER, Pancho Unavailable Unavailable Reginald BLOW PIT OPERATOR, Reji Unavailable Unavailable Cristopher LINING FELLER, December Unavailable Unavailable Taylor LINING FELLER, Briseida Unavailable Unavailable More LRT, Tera Unavailable Unavailable Beryannein LINING FELLER, Kobe Unavailable Unavailable Elizabeth Msn Npc, Mela [...] Tablet; 1 daily (10 MG) CALCIUM-VITAMIN D, [id number] (Oral Tablet); three times daily (250-125 MG-UNIT) [...] 0 Comments: 30mg po x 2 days, [id number] po x 2 days [id number] po x 2 days, then stop Qvar [...] EXHALED NITRIC OXIDE MEASUREMENT Status: Completed 05-Jun-2019 (91565) EXHALED NITRIC OXIDE MEASUREMENT Date: 01-Aug-2018 Status: Completed 2018 (74364) AIRFLOW RESISTANCE MEASUREMENT: Status: Completed 17-Nov-2018 PULM FUNCT TEST OSCILLOMETRY (05361) THORACIC GAS VOLUME: AIRWAY Status: Completed 17-Nov-2018 CLOSING VOLUME MEASUREMENT: PULM FUNCTION TEST BY GAS (49940) TOTAL VITAL CAPACITY (92272) Status: Completed 17-Nov-2018 MEASUREMENT OF NITRIC Status: Completed 17-Nov-2018 OXIDE (37559) MEASUREMENT OF NITRIC Status: Completed 08-Jun-2018 OXIDE (40631) RESPIRATORY FLOW VOLUME LOOP Status: Completed 08-Jun-2018 (66199) TOTAL VITAL CAPACITY (78076) Status: Completed 16-Feb-2018 TOTAL BODY PLETHYSMOGRAPHY: Status: Completed 16-Feb-2018 AIRFLOW RESISTANCE MEASUREMENT (94850) THORACIC GAS VOLUME: AIRWAY Status: Completed 16-Feb-2018 CLOSING VOLUME MEASUREMENT: PULM FUNCTION TEST BY GAS (69370) RESPIRATORY FLOW VOLUME LOOP Status: Completed 16-Feb-2018 (95739) DLCO (CARBON MONOXIDE DIFFUSING Status: Completed 16-Feb-2018 CAPACITY) (83272) AIRFLOW RESISTANCE MEASUREMENT: Status: Completed 16-Feb-2018 PULM FUNCT TEST OSCILLOMETRY (97233) PRE AND POST (28733) Status: Completed 16-Feb-2018 RESPIRATORY FLOW VOLUME LOOP Status: Completed 17-Nov-2017 (20145) TOTAL VITAL CAPACITY (81133) Status: Completed 26-Feb-2017 TOTAL BODY PLETHYSMOGRAPHY (22442) Status: Completed 26-Feb-2017 TGV THORACIC GAS VOLUME: AIRWAY Status: Completed 26-Feb-2017 CLOSING VOLUME MEASUREMENT: PULM FUNCTION TEST BY GAS (68545) RESPIRATORY FLOW VOLUME LOOP Status: Completed 26-Feb-2017 (01232) DLCO (CARBON MONOXIDE DIFFUSING Status: Completed 26-Feb-2017 CAPACITY) (82864) AIRFLOW RESISTANCE MEASUREMENT: Status: Completed 26-Feb-2017 PULM FUNCT TEST OSCILLOMETRY (07241) PRE AND POST (48585) Status: Completed 26-Feb-2017 RESPIRATORY FLOW VOLUME LOOP Status: Completed 09-Sep-2016 (05817) PRE AND POST (64760) Status: Completed 09-Sep-2016 TOTAL VITAL CAPACITY (68003) Status: Completed 17-Apr-2016 TOTAL BODY PLETHYSMOGRAPHY (45194) Status: Completed 17-Apr-2016 TGV THORACIC GAS VOLUME: AIRWAY Status: Completed 17-Apr-2016 CLOSING VOLUME MEASUREMENT: PULM FUNCTION TEST BY GAS (22244) RESPIRATORY FLOW VOLUME LOOP Status: Completed 17-Apr-2016 (64211) DLCO (CARBON MONOXIDE DIFFUSING Status: Completed 17-Apr-2016 CAPACITY) (58487) AIRFLOW RESISTANCE MEASUREMENT: Status: Completed 17-Apr-2016 PULM FUNCT TEST OSCILLOMETRY (26196) PRE AND POST (77853) Status: Completed 17-Apr-2016 RESPIRATORY FLOW VOLUME LOOP Status: Completed 26-Nov-2015 (46742) TOTAL VITAL CAPACITY (41314) Status: Completed 26-Aug-2015 TOTAL BODY PLETHYSMOGRAPHY (43763) Status: Completed 26-Aug-2015 TGV THORACIC GAS VOLUME: AIRWAY Status: Completed 26-Aug-2015 CLOSING VOLUME MEASUREMENT: PULM FUNCTION TEST BY GAS (72744) RESPIRATORY FLOW VOLUME LOOP Status: Completed 26-Aug-2015 (20736) DLCO (CARBON MONOXIDE DIFFUSING Status: Completed 26-Aug-2015 CAPACITY) (51553) AIRFLOW RESISTANCE MEASUREMENT: Status: Completed 26-Aug-2015 PULM FUNCT TEST OSCILLOMETRY (81334) PRE AND POST (59889) Status: Completed 26-Aug-2015 AIRFLOW RESISTANCE MEASUREMENT: Status: Completed 19-Apr-2015 PULM FUNCT TEST OSCILLOMETRY (99529) TOTAL VITAL CAPACITY (86907) Status: Completed 19-Apr-2015 TOTAL BODY PLETHYSMOGRAPHY: AIRWAY Status: Completed 19-Apr-2015 CLOSING VOLUME MEASUREMENT: PULM FUNCT TST PLETHYSMOGRAP (94746) RESPIRATORY FLOW VOLUME LOOP Status: Completed 19-Apr-2015 (42063) THORACIC GAS VOLUME: AIRWAY Status: Completed 19-Apr-2015 CLOSING VOLUME MEASUREMENT: PULM FUNCTION TEST BY GAS (97554) DLCO (CARBON MONOXIDE DIFFUSING Status: Completed 19-Apr-2015 CAPACITY) (55619) PRE AND POST (73831) Status: Completed 19-Apr-2015 RESPIRATORY FLOW VOLUME LOOP Status: Completed 02-Aug-2014 (48072) PRE AND POST (09791) Status: Completed 02-Aug-2014 RESPIRATORY FLOW VOLUME LOOP Status: Completed 21-Mar-2014 (30612) PRE AND POST (38259) Status: Completed 21-Mar-2014 MEDICARE RX CODE: AT LEAST ONE Status: Completed 29-May-2013 PRESCRIPTION CREATED DURING THE ENCOUNTER WAS GENERATED AND TRANSMITTED ELECTRONICALLY USING A QUALIFIED ERX SYSTEM (G8553) RESPIRATORY FLOW VOLUME LOOP Status: Completed 10-Apr-2013 (07327) PRE AND POST (19300) Status: Completed 10-Apr-2013 RESPIRATORY FLOW VOLUME LOOP Status: Completed 02-Mar-2013 (13366) SPIROMETRY WITH BRONCHODILATOR Status: Completed 02-Mar-2013 (91163) MEDICARE RX CODE: AT LEAST ONE Status: Completed 07-Oct-2012 PRESCRIPTION CREATED DURING THE ENCOUNTER WAS GENERATED AND TRANSMITTED ELECTRONICALLY USING A QUALIFIED ERX SYSTEM (G8553) REST/EXERCISE OXIMETRY (43767) Status: Completed 07-Oct-2012 RESPIRATORY FLOW VOLUME LOOP Status: Completed 07-Oct-2012 (09296) PRE AND POST W/ RT (07905) Status: Completed 07-Oct-2012 ACT Status: Completed 03-Feb-2011 [...] pleural scar in RML PRE AND POST (57833)Result: Hemoptysis: No Status: Completed 17-Nov-2018 CAT SCAN OF CHEST: CT THORAX W/O DYE (43373)Result: Status: Completed 2018 Are you or could you become ?: No; When was you last CXR/CT?: over week ago; Beader Tender: JUAN Booth PRE AND POST (66664)Result: Hemoptysis: No Status: Completed 01-Aug-2018 PRE AND POST (33572)Result: Hemoptysis: No Status: Completed 08-Jun-2018 CAT SCAN OF CHEST: CT THORAX W/O DYE (62475)Result: Status: Completed 2017 Are you or could you become ?: No; When was you last CXR/CT?: over a week ago; Beader Tender: Piper Chopra, LRT PRE AND POST (64289)Result: Hemoptysis: No Status: Completed 17-Nov-2017 CHEST X-RAY, PA AND LATERAL (20931)Result: Are you Status: Completed 2016 or could you become ?: No; When was you last CXR/CT?: over week ago; Beader Tender: Tera Bundy, LRT CHEST X-RAY, PA AND LATERAL (48280)Result: Are you Date: 30-Nov-2016 or could you become ?: No; When was Status: Completed 2016 you last CXR/CT?: over week ago; Beader Tender: Tera Bundy, LRT CHEST X-RAY, PA AND LATERAL (79711)Result: Are you Date: 30-Nov-2016 or could you become ?: No; When was Status: Completed 2016 you last CXR/CT?: over week ago; Beader Tender: Comments: today at [facility] Tera Bundy, LRT CHEST X-RAY, PA AND LATERAL (80703)Result: Are you Status: Completed 2016 or could you become ?: No; When was you last CXR/CT?: OVER WEEK AGO; Beader Tender: Tera Bundy, LRT CT THORAX W/O DYE (69703)Result: Are you or Status: Completed could you become ?: No; When was you last CXR/CT?: over week ago; Beader Tender: Tera Bundy, LRT CT THORAX W/O DYE (80133)Result: Are you or Status: Completed could you become ?: No; When was you last CXR/CT?: OVER WEEK AGO; Beader Tender: Tera Bundy, LRT CHEST X-RAY, PA AND LATERAL (29539)Result: Are you Status: Completed 2015 or could you become ?: No; When was you last CXR/CT?: over week ago; Beader Tender: Tera Bundy, LRT PRE AND POST (28158)Result: Hemoptysis: No Status: Completed 26-Nov-2015 CT THORAX W/O DYE (27419)Result: Are you or Status: Completed 2015 could you become ?: No; When was you last CXR/CT?: over a week ago; Beader Tender: Tera Bundy, LRT CAT SCAN OF CHEST: CT THORAX W/O DYE (94440)Result: Status: Completed 2014 Are you or could you become ?: No; When was you last CXR/CT?: over a week ago; Beader Tender: Tera Bundy, LRT CAT SCAN OF CHEST: CT THORAX W/O DYE (79287)Result: Status: Completed 2014 Are you or could you become ?: No; When was you last CXR/CT?: 2014; Beader Tender: Guero Flaherty, LRT CAT SCAN OF CHEST: CT THORAX W/O DYE (75201)Result: Status: Completed 2014 Are you or could you become ?: No; When was you last CXR/CT?: OVER 1 WEEK AGO; Beader Tender: Tera Bundy, LRT CT THORAX W/O DYE (44425)Result: Are you or Status: Completed could you become ?: No; When was you last CXR/CT?: 04/01; Beader Tender: Guero Flaherty, LRT CHEST X-RAY, PA AND LATERAL (36453)Result: Are you Status: Completed 2013 or could you become ?: No; When was you last CXR/CT?: over 2 months ago; Beader Tender: Tera Bundy, LRT CT THORAX W/O DYE (33721)Result: Are you or Status: Completed 2013 could you become ?: No; When was you last CXR/CT?: last month; Beader Tender: Tera Bundy, LRT CT THORAX W/O DYE (23991)Result: Are you or Date: 21-Nov-2013 could you become ?: No; When was you last Status: Completed 2013 CXR/CT?: last month; Beader Tender: Guero Flaherty, LRT CAT SCAN OF CHEST: CT THORAX W/O DYE (95987)Result: Status: Completed 2012 Are you or could you become ?: No; Beader Tender: Rosalinda Rodriguez LPN CT THORAX W/O DYE (77204)Result: Are you or Status: Completed 2012 could you become ?: No; Beader Tender: JUAN Booth ACT: ASSESSMENT OF DISEASE: ASTHMA [...] Score: 17 CHEST X-RAY, PA AND LATERAL (02103)Result: Are you Status: Completed 2012 or could you become ?: No; Beader Tender: JUAN Booth Asthma Control Test (ACT)Result: [Questions] [...] Score] Score: 19 RESPIRATORY FLOW VOLUME LOOP (86822)Result: Date: 04-Aug-2011 Hemoptysis: No; Medication Used: Albuterol 0.083% kendell aerosol; Electroless Plater: Reji Montelongo RRT RESPIRATORY FLOW VOLUME LOOP (50076)Result: Date: 01-May-2011 Hemoptysis: No; Medication Used: Albuterol 0.083% kendell aerosol; Electroless Plater: Yael Aragon LPN Immunizations Influenza (3 years [...] Skin Test, Intradermal On: 03-Mar-2013 Lot #: [id number] Family History Allergic Rhinitis Status: Active Comments: Father. Emphysema Status: Active Comments: Father. Social History Alcohol use: Occasional alcohol use. Current work status: Retired. Marital status: . No caffeine use No drug use Tobacco use: Never smoker. Never smoker Female Plan of Treatment CAT SCAN OF CHEST: CT THORAX W/O DYE Start: 05-Jul-2019 Intent (76015) REST OXIMETRY (85197) Start: 05-Jun-2019 Intent SIMPLE PFT: BASELINE PULMONARY Start: 05-Jun-2019 Intent FUNCTION TEST (PFT) (92668) REST OXIMETRY (80700) Start: 17-Nov-2018 Intent CONTINUOUS OVERNIGHT OXIMETRY Start: 08-Jun-2018 Intent (12967) Comments: on cpap REST OXIMETRY (64247) Start: 16-Feb-2018 Intent EXHALED NITRIC OXIDE MEASUREMENT Start: 17-Nov-2017 Intent (77635) Comments: Evaluated patient's nitric oxide. The results were 16 ppb RESPIRATORY FLOW VOLUME LOOP (40387) Start: 30-Nov-2016 Intent SIMPLE PFT: BASELINE PULMONARY Start: 30-Nov-2016 Intent FUNCTION TEST (PFT) (71004) REST OXIMETRY (31460) Start: 09-Sep-2016 Intent REST OXIMETRY (17894) Start: 26-Nov-2015 Intent REST OXIMETRY (86436) Start: 19-Apr-2015 Intent RESPIRATORY FLOW VOLUME LOOP (46973) Start: 11-Oct-2014 Intent PRE AND POST (26338) Start: 11-Oct-2014 Intent REST/ EXERCISE OXIMETRY (00841) Start: 21-Nov-2013 Intent TOTAL VITAL CAPACITY (30372) Start: 21-Nov-2013 Intent TOTAL BODY PLETHYSMOGRAPHY (56783) Start: 21-Nov-2013 Intent TGV THORACIC GAS VOLUME: AIRWAY Start: 21-Nov-2013 Intent CLOSING VOLUME MEASUREMENT: PULM FUNCTION TEST BY GAS (31591) RESPIRATORY FLOW VOLUME LOOP (56766) Start: 21-Nov-2013 Intent DLCO (CARBON MONOXIDE DIFFUSING Start: 21-Nov-2013 Intent CAPACITY) (64217) AIRFLOW RESISTANCE MEASUREMENT: PULM Start: 21-Nov-2013 Intent FUNCT TEST OSCILLOMETRY (11974) PRE AND POST (54067) Start: 21-Nov-2013 Intent REST OXIMETRY (02869) Start: 06-Jul-2013 Intent RESPIRATORY FLOW VOLUME LOOP (10695) Start: 06-Jul-2013 Intent PRE AND POST (81581) Start: 06-Jul-2013 Intent BRONCHOSCOPY IN ENDO (13749) Start: 12-May-2013 Intent REST/ EXERCISE OXIMETRY (52880) Start: 02-Mar-2013 Intent ACT: ASSESSMENT OF DISEASE: ASTHMA Start: 02-Mar-2013 Intent SYMPTOMS EVALUATE (1005F) REST/EXERCISE OXIMETRY (88375) Start: 08-Aug-2012 Intent RESPIRATORY FLOW VOLUME LOOP (48820) Start: 08-Aug-2012 Intent PRE/POST (37051) Start: 08-Aug-2012 Intent RESPIRATORY FLOW VOLUME LOOP (87135) Start: 04-Feb-2012 Intent EXERCISE OXIMETRY (47506) Start: 04-Feb-2012 Intent REST OXIMETRY (22033) Start: 04-Feb-2012 Intent PRE/POST (28904) Start: 04-Feb-2012 Intent PRE/POST W/ RT (83157) Start: 04-Aug-2011 Intent REST OXIMETRY (87675) Start: 04-Aug-2011 Intent EXERCISE OXIMETRY (72784) Start: 04-Aug-2011 Intent Pre/Post (71612) Start: 01-May-2011 Intent IMMUNOGLOBULIN E (IgE) (02485) Start: 05-Jun-2019 12:35 Request CBC, PLATELETS & AUT DIFF (15260) Start: 05-Jun-2019 12:35 Request QUANTATATIVE IMMUNOGLOBULINS (05562) Start: 05-Jun-2019 12:34 Request SPUTUM AFB (87213) Start: 05-Jun-2019 12:32 Request SPUTUM CULTURE (63636) Start: 05-Jun-2019 12:32 Request SPUTUM CULTURE (45375) Start: 20-Apr-2019 10:48 Request BUN (BLOOD UREA NITROGEN) (34775) Start: 16-Aug-2018 10:40 Request CREATININE BLOOD (16361) Start: 16-Aug-2018 10:40 Request SPUTUM CULTURE (16790) Start: 11-Aug-2018 11:01 Request SPUTUM CULTURE (14487) Start: 29-Jul-2018 10:01 Request CANDACE SCREEN (05144) Start: 17-Nov-2017 14:20 Request RHEUMATOID FACTOR-QUANT (01068) Start: 17-Nov-2017 14:20 Request SED RATE ERYTHROCYTE (15085) Start: 17-Nov-2017 14:20 Request Comments: ICD 279.49 RHEUMATOID FACTOR-QUANT (75868) Start: 17-Nov-2017 14:19 Request NNAIW-7-CRWPSZPHCYO-TOTAL (18869) Start: 17-Nov-2017 14:19 Request DOOIA-9-OXJZSNJBQGF-PHEN (76552) Start: 17-Nov-2017 14:19 Request QUANTATATIVE IMMUNOGLOBULINS (88767) Start: 17-Nov-2017 14:15 Request IMMUNOGLOBULIN E (IgE) (35865) Start: 17-Nov-2017 14:15 Request CBC, PLATELETS & AUT DIFF (79202) Start: 17-Nov-2017 14:15 Request SPUTUM CULTURE (88071) Start: 03-May-2017 14:34 Request CBC, PLATELETS & AUT DIFF (13666) Start: 26-Feb-2017 10:15 Request QUANTATATIVE IMMUNOGLOBULINS (73585) Start: 26-Feb-2017 10:15 Request IMMUNOGLOBULIN E (IgE) (76256) Start: 26-Feb-2017 10:15 Request ASTHMA (Renamed from [...] PSEUDOMONAS : Start flutter device- faxed to [facility] Indication:BACTERIAL INFECTION DUE TO PSEUDOMONAS ASTHMA (Renamed from AIRWAY HYPERREACTIVITY) : Continue with Spiriva with 2.5mcg samples to replace low dose for a trial Indication:ASTHMA (Renamed from AIRWAY HYPERREACTIVITY) OBSTRUCTIVE SLEEP APNEA : Change to auto titrating CPAP- faxed to [facility] already Indication:OBSTRUCTIVE SLEEP APNEA ASTHMA (Renamed from [...] from AIRWAY HYPERREACTIVITY) : SINAN CABRERA - Tristan patient with Tristan in office [...] (Renamed from AIRWAY HYPERREACTIVITY) Results SPUTUM CULTURE (23943) Ordered On: 09-May-2014 CULTURE, SPUTUM pseudomonas (Normal) SPUTUM CULTURE (65025) Ordered On: 20-Apr-2014 CULTURE, SPUTUM e coli Comments: see scanned doc (Normal) YYENA-5-GDLFYRKNKPF-TOTAL Ordered On: 29-May-2013 (98226) FMYOD-0-KHGKSXNSONC-TOTAL see scanned doc (Normal) RTEDC-8-DTQBPRPOGOK-PHEN Ordered On: 29-May-2013 (11941) CYBWA-7-LRRRQRDABUZ-PHEN MM (Normal) IMMUN SUBCLAS-IGG1,2,3 & Ordered On: 29-May-2013 4 (28473) IMMUN SUBCLAS-IGG1,2,3 & 4 see scanned doc (Normal) RHEUMATOID FACTOR-QUANT Ordered On: 29-May-2013 (84602) RHEUMATOID FACTOR-QUANT Range: 0 [iU] - 15 [iU] see scanned doc [iU] (Normal) ANCA C&P W/REFLEX (47835) Ordered On: 29-May-2013 ANCA - C see scanned doc (Normal) CBC & PLATELETS (AUTO) Ordered On: 29-May-2013 (37700) BLOOD COUNT, PLATELET, AUTOMATED see scanned doc [...] (Normal) IMMUNOGLOBULIN E (IgE) Ordered On: 29-May-2013 (99933) IMMUNOGLOBULIN E (IgE) Range: 0 mg/dL - 380 mg/dL see scanned doc mg/dL (Abnormal) ACID FAST CUL/SMEAR Ordered On: 17-May-2013 ACID FAST CUL/SMEAR See Comments: SPECIMEN DESCRIPTION Note (Normal) BRONCHIAL WASHINGSSPECIAL REQUESTS ...ACID FAST SMEAR NO ACID FAST BACILLI (CONCENTRATED SMEAR)CULTURE RESULTS NO ACID FAST BACILLI ISOLATED AFTER 8 WEEKSREPORT STATUS FINAL 07/12/2013Unless otherwise specified, testing performed by [facility] [address] [place] [address] [id number] FUNGUS CULTURE Ordered On: 17-May-2013 FUNGUS CULTURE See Note Comments: SPECIMEN DESCRIPTION (Normal) BRONCHIAL WASHINGSSPECIAL REQUESTS NONECULTURE RESULTS BROOKE ALBICANSREPORT STATUS FINAL 06/14/2013Unless otherwise specified, testing performed by [facility] [address] [place] [address] 57636 LEGIONELLA CULTURE Ordered On: 17-May-2013 LEGIONELLA CULTURE See Comments: SPECIMEN DESCRIPTION Note (Normal) BRONCHIAL WASHINGSSPECIAL REQUESTS NONECULTURE RESULTS CULTURE DISCONTINUED DUE TO BACTERIAL CONTAMINAT IONREPORT STATUS FINAL 05/19/2013Unless otherwise specified, testing performed by [facility] [address] [place] [address] [phone] LEGIONELLA DFA Ordered On: 17-May-2013 LEGIONELLA DFA See Note Comments: SPECIMEN DESCRIPTION (Normal) BRONCHIAL WASHINGSSPECIAL REQUESTS NONERESULT NEGATIVE FOR LEGIONELLA PNEUMOPHILA BY DFAREPORT STATUS FINAL 05/17/2013Unless otherwise specified, testing performed by [facility] [address] [place] [address] [phone] RESPIRATORY CULTURE Ordered On: 17-May-2013 RESPIRATORY CULTURE [...] <=1 SUSCEPTIBLEUnless otherwise specified, testing performed by [facility] [address] [place] [address] [phone] PT (PROTHROMBIN TIME) Ordered On: 12-May-2013 (30052) INR 0.95 (Normal) Comments: SUGGESTED THERAPEUTIC RANGES USING INR FORSTABILIZED ANTICOAGULATED PATIENTS:STANDARD DOSE THERAPY INR 2.0-3.0 DVT, PE, PREVENT DVT OR EMBOLISMHIGH DOSE THERAPY INR 2.5-3.5 PREVENT EMBOLISM FROM MECHANICAL HEART VALVEUnless otherwise specified, testing performed by [facility] [address] [place] [address] 08467 PT 10.5 {SEC} (Normal) Range: 9.2 {SEC} - 11.9 {SEC} PLATELET COUNT (72667) Ordered On: 12-May-2013 PLT 301 10*3/uL (Normal) Range: 150 10*3/uL - 400 10*3/uL Comments: Unless otherwise specified, testing performed by [facility] [address] [place] [address] [phone] PTT (ACTIVATED PARTIAL Ordered On: 12-May-2013 THROMBOPLASTIN TIME) (48190) APTT 27.1 {SEC} (Normal) Range: 22.0 {SEC} - 32.6 {SEC} Comments: Unless otherwise specified, testing performed by [facility] [address] [place] [address] [phone] SKIN TEST INTRADERMAL TB Ordered On: 03-Mar-2013 Comments: LA LOT# [id number] EXP : (54552) 03/2014 SKIN TEST INTRADERMAL TB Comments: negative negative (Normal) SPUTUM AFB (47317) Ordered On: 02-Mar-2013 Comments: x 3 TUBERCLE CULTURE negative Comments: also negative on 03/06 and (Normal) 03/07 samples collected SPUTUM CYTOLOGY (04184) Ordered On: 06-Mar-2013 SPUTUM CYTOLOGY negative Comments: on both 03/06 and 03/07 (Normal) samples collected SPUTUM CULTURE (29423) Ordered On: 02-Mar-2013 CULTURE, SPUTUM abnormal Comments: [...] Summary 05-Jun-2019 12:45 To 31-May-2019 8:49 Pulmonary [facility] Office Office Visit 05-Jun-2019 12:45 To 05-Jun-2019 12:42 Encounter Reason: ASTHMA, FOLLOW UP - The last clinic visit was 6 month(s) ago (And since that appointment the patient [facility] Office did have 3 courses of antibiotics [...] using cpap nightly. home care company is [employer]. no issues and no snoring with cpap [...] ago. Management changes made at the last [facility] Office it include none (Except to [...] using cpap nightly. home care company is [employer]. no issues and no snoring with cpap on and feels more rested with use. 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 Sa[facility]) and allergic rhinitis, while pertinent medical history [...] Encounter Diagnosis: ASTHMA (Renamed from AIRWAY HYPERREACTIVITY) [facility] Office Order Only 20-Apr-2019 10:46 To 20-Apr-2019 10:49 Encounter Diagnosis: ACUTE BRONCHITIS [facility] Office Historical Summary 17-Nov-2018 13:45 To 11-Nov-2018 9:02 Encounter Reason: ASTHMA, FOLLOW UP - The last clinic visit was 4 month(s) ago (And since that appointment the patient [facility] has seen infectious disease [...] using cpap nightly. home care company is [employer]. no issues and no snoring with cpap [...] 13:45 [facility] Office Transition of Care 29-Aug-2018 7:49 To [...] ago. Management changes made at the last [facility] Office it include changing the dose [...] using cpap nightly. home care company is [employer]. no issues and no s noring with [...] Encounter Diagnosis: ASTHMA (Renamed from AIRWAY HYPERREACTIVITY) [facility] Office Office Visit 08-Jun-2018 10:21 To 08-Jun-2018 13:45 Encounter Reason: ASTHMA, FOLLOW UP - The last clinic visit was 3 month(s) ago. No changes in management were made at [facility] Office he last visit. The patient's [...] ago. Management changes made at the last [facility] Office it include ordering tests. The patient's [...] Historical Summary 16-Feb-2018 11:09 To 16-Feb-2018 11:09 [facility] Office Visit 16-Feb-2018 10:36 To 16-Feb-2018 12:04 Encounter Reason: ASTHMA, FOLLOW UP - The last clinic visit was 3 month(s) ago. Management changes made at the last vis [facility] Office it include ordering tests. The [...] Historical Summary 04-Feb-2018 14:15 To 04-Feb-2018 14:21 [facility] Office Order Only 17-Nov-2017 15:48 To 17-Nov-2017 15:51 Encounter Diagnosis: ABNORMAL FINDING ON LUNG IMAGING [facility] Office Office Visit 17-Nov-2017 13:49 To 17-Nov-2017 14:24 Encounter Reason: ASTHMA, FOLLOW UP - The last clinic visit was 9 month(s) ago (and has lost 9# since last seen, had ri [facility] ght knee surgery 2 [...] ago. Management changes made at the last [facility] Office it include none (except to [...] Historical Summary 13-Nov-2017 10:06 To 13-Nov-2017 10:09 [facility] Office Order Only 03-May-2017 14:33 To 03-May-2017 14:35 Encounter Diagnosis: ASTHMA (Renamed from AIRWAY HYPERREACTIVITY) [facility] Historical Summary 05-Apr-2017 16:16 To 05-Apr-2017 16:23 Encounter Diagnosis: ASTHMA (Renamed from AIRWAY HYPERREACTIVITY) [facility] Office Medication Order 02-Apr-2017 11:02 To 02-Apr-2017 11:54 Encounter Diagnosis: ACUTE BRONCHITIS [facility] Office Office Visit 26-Feb-2017 8:56 To 26-Feb-2017 11:06 Encounter Reason: ASTHMA, FOLLOW UP - The last clinic visit was 3 month(s) ago (primary is Dr. Donte Mckinney). No changes [facility] Office in management were made at the [...] To 08-Feb-2017 11:56 Encounter Diagnosis: ABNORMAL SPUTUM [facility] Historical Summary 04-Feb-2017 14:17 To 04-Feb-2017 14:21 Encounter Diagnosis: ASTHMA (Renamed from AIRWAY HYPERREACTIVITY) [facility] Office Order Only 30-Nov-2016 15:44 To 30-Nov-2016 15:45 Encounter Diagnosis: ASTHMA (Renamed from AIRWAY HYPERREACTIVITY) [facility] Office Office Visit 30-Nov-2016 15:01 To 30-Nov-2016 15:48 Encounter Reason: ASTHMA, FOLLOW UP - The last clinic visit was 3 month(s) ago (primary is Dr. Donte Mckinney). No changes [facility] Office in management were [...] was 5 month(s) ago (and hospitalized in [place] 08/23-08/27/19 [facility] Office 17 with pneumonia and [...] Encounter Diagnosis: ABNORMAL FINDING ON LUNG IMAGING [facility] Office Order Only 03-Jan-2016 8:56 To 03-Jan-2016 10:08 Encounter Diagnosis: ABNORMAL FINDING ON LUNG IMAGING [facility] Office Visit 03-Jan-2016 8:04 To 03-Jan-2016 8:48 Encounter Reason: ASTHMA, FOLLOW UP - The last clinic visit was 1 month(s) ago (primary is Dr. Donte Mckinney). Management [facility] Office changes made at the [...] Encounter Diagnosis: ABNORMAL FINDING ON LUNG IMAGING [facility] Office Historical Summary 26-Nov-2015 14:51 To 26-Nov-2015 14:52 Encounter Reason: ASTHMA, FOLLOW UP - The last clinic visit was 3 month(s) ago (primary is Dr. Donte Mckinney). Management [facility] Office changes made at the [...] ago (primary is Dr. Donte Mckinney). Management [facility] changes made at the [...] ago. Management changes made at the last [facility] Office t include none (and is to [...] less cavitation. did have ID consult with [facility] to consider inhaled VJ. she tolerated this [...] is Dr. Donte Mckinney). No changes i [place] [facility] n management were made [...] Encounter Diagnosis: ASTHMA (Renamed from AIRWAY HYPERREACTIVITY) [facility] Office Order Only 22-Apr-2015 14:19 To 22-Apr-2015 14:23 Encounter Diagnosis: ABNORMAL FINDING ON LUNG IMAGING [facility] Office Historical Summary 19-Apr-2015 13:28 To 19-Apr-2015 13:31 [facility] Office Historical Summary 19-Apr-2015 12:53 To 19-Apr-2015 12:54 Encounter Reason: ASTHMA, FOLLOW UP - The last clinic visit was 6 month(s) ago (primary is Dr. Donte Mckinney, also seeing [facility] Dr. Knight). Management changes [...] (primary is Dr. Donte Mckinney, also seeing [facility] Dr. Knight). Management changes [...] nightly. no issues). Past evaluation has included ch est CT (had URI symptoms in february [...] Encounter Diagnosis: BACTERIAL INFECTION DUE TO PSEUDOMONAS [facility] Office Visit 02-Aug-2014 10:32 To 02-Aug-2014 16:02 Encounter Reason: ASTHMA, FOLLOW UP - The last clinic visit was 3 month(s) ago (primary is Dr. Donte Mckinney, also seeing [facility] Dr. Knight). Management changes [...] Encounter Diagnosis: ASTHMA (Renamed from AIRWAY HYPERREACTIVITY) [facility] Order Only 18-Apr-2014 15:07 To 18-Apr-2014 15:08 Encounter Diagnosis: BACTERIAL INFECTION DUE TO PSEUDOMONAS [facility] Medication Order 11-Apr-2014 14:55 To 11-Apr-2014 15:06 Encounter Diagnosis: BACTERIAL INFECTION DUE TO PSEUDOMONAS [facility] Office Visit 21-Mar-2014 9:37 To 21-Mar-2014 13:33 Encounter Reason: ASTHMA, FOLLOW UP - The last clinic visit was 3 month(s) ago (primary is Dr. Donte Mckinney, also seeing [facility] Dr. Knight). No changes [...] (primary is Dr. Donte Mckinney, also seeing [facility] Dr. Knight). No changes [...] Encounter Diagnosis: BACTERIAL INFECTION DUE TO PSEUDOMONAS [facility], Order Only 28-Jul-2013 15:54 To 28-Jul-2013 16:10 Encounter Diagnosis: ABNORMAL FINDING ON LUNG IMAGING [facility] Historical Summary 06-Jul-2013 14:42 To 06-Jul-2013 14:44 Encounter Reason: ASTHMA, FOLLOW UP - The last clinic visit was 1 month(s) ago (primary is Dr. Donte Mckinney, also seeing [facility] Dr. Knight). No changes [...] (primary is Dr. Donte Mckinney, also seeing [facility] Dr. Knight). No changes [...] (primary is Dr. Donte Mckinney, also seeing [facility] Dr. Knight). No changes [...] (primary is Dr. Donte Mckinney, also seeing [facility] Dr. Knight). No changes [...] (primary is Dr. Donte Mckinney, also seeing [facility] blanca Knight). Management changes made [...] ppd tests but does know that her fabi díaz tests positive from prior exposure in other [...] Encounter Diagnosis: ASTHMA (Renamed from AIRWAY HYPERREACTIVITY) [place] [facility] Office Medication Order 10-Mar-2013 12:38 To 10-Mar-2013 13:02 Encounter Diagnosis: BACTERIAL INFECTION DUE TO PSEUDOMONAS [facility] Office Order Only 03-Mar-2013 10:58 To 07-Mar-2013 16:05 Encounter Diagnosis: ABNORMAL FINDING ON LUNG IMAGING [place] [facility] Office Visit 02-Mar-2013 15:20 To 02-Mar-2013 16:32 Encounter Reason: ASTHMA, FOLLOW UP - The last clinic visit was 7 month(s) ago (primary is Dr. Donte Mckinney). Management [facility] changes made at the [...] ago (primary is Dr. Donte Mckinney). Management [facility] changes made at the [...] on cpap nightly. home care company is [employer]. gets supplies prn. able to wear cpap [...] Dr. Donte Mckinney). No changes [place] [facility] in management were made [...] on cpap nightly. home care company is [employer] gets supplies prn. ab le to wear cpap all night without any respiratory symptoms. feels more rested with use), allergic rhinitis and gastroesophageal reflux. denies recent hospitalizations. Encounter Diagnosis: PULMONARY NODULE (518.89) , ASTHMA (493.90), PABLITO (OBSTRUCTIVE SLEEP APNEA) (327.23), OBESITY (278.00), AR (ALLERGIC RHINITIS) (477.9), GERD (GASTROESOPHAGEAL REFLUX DISEASE) (530.81) Medication Order 30-Jun-2012 17:24 To 30-Jun-2012 17:26 Encounter Diagnosis: ASTHMA (493.90) [facility] Office Office Visit 04-Feb-2012 14:33 To 04-Feb-2012 15:23 Encounter Reason: Asthma follow up - The last clinic visit was 6 month(s) ago. No changes in management were made at [facility] Office he last visit. Symptoms include shortness [...] ago. Management changes made at the last [facility] Office it include adding symbicort [...] Historical Summary 03-Aug-2011 19:22 To 03-Aug-2011 19:23 [facility] Medication Order 09-Jul-2011 8:23 To [...] includes CPAP therapy (home care company is [employer]. new mask and supplies prn without issue) [...] Historical Summary 30-Apr-2011 11:48 To 30-Apr-2011 12:19 [facility] Office Payers [employer] [place] [address] [facility] [address] [place] Group Number: [id number] tel: BS of [employer] [address] [address] [facility] [id number] [place] Group Number: NONE tel: RICHIE HADDAD [address] [place] [id number] tel:
--- OUTSIDE RECORDS SUMMARY | 2019-07-13 12:33 | XMS REPORT | Continuity of Care Document ---
:1935 External Reference #:[id number] Author Name Donte Mckinney (transmitted by agent of provider Tari Velez) Address [address] [place] [place] [address] Problems Active Problems Provider Date Type 2 [...] Medications SIG Qnty Indications Ordering Date Provider Amoxicillin/Clavulana 1 by mouth three 21tabs J44.1 Donte Mckinney 05/15/2019 te Potassium times a day 500-125mg Tablets Albuterol Sulfate Inhale The 75units J20.9 Donte [...] Acetonide nostril twice 55mcg/Act daily Aerosol Pen Panacea 1/2" dx e11.65 as 100units Faye Donte 06/29/2017 29G X directed 3x a day 12mm Misc injections Diabetic Shoes With as directed hx Alex Mckinneyl 01/04/2017 Inserts foot surgeries edema feet and ankles. calluses on feet. Accu-Chek Beth Plus dx e11.65 test 4 300units Alex Mckinneyl 09/15/2016 times daily Strips Accu-Chek Beth Test Fout Times 1units Faye Donte 09/15/2016 Device Daily DX E11.65 Syrings 316 Lenght 14 units in in the 100units Alex Mckinneyl 07/07/2016 By 31 Gauge morning dx e11.65 Wendy Allergy 1 PO qd prn 90tabs Alex Mckinneyl 05/05/2016 180mg Tablets Vitamin C Plus Faye Donte 05/05/2016 Echinacea 500-100mg Tablets Vitamin D3 High 1 by mouth every 90caps Faye Donte 05/05/2016 Potency day 1000Unit Capsules Meliza-Sequels Alex Mckinneyl 05/05/2016 65-25mg Tablets ER Calcium 500 + D Faye [facility] 05/05/2016 [id number]-[id number] Tablets Multivitamin Women Faye Donte 05/05/2016 50+ 50+ Tablets Clonidine HCL 1 by mouth three 270tabs Faye Donte 10/09/2015 0.2mg times a day Tablets Levemir Flextouch taking 13 units in 3Mo Alex Mckinneyl 05/14/2015 the am and 16 100Unit/ML Solution units in the pm Pen-Inject Vasotec 1 by mouth twice a 180tabs Alex Mckinneyl 04/09/2015 20mg Tablets day Knee High Support as directed dx 1units Donte Mckinney 03/19/2015 Hose 250.00 459.81 20-30 compression Walker with wheels and 1unrené Donte Mckinney 02/14/2013 seat dx 781.2 Tylenol 8 Hour as needed 100tabs M15.0 Donte Mckinney 10/11/2012 650mg Tablets ER Fish Oil bid Donte Mckinney 11/25/2010 1200mg Capsules Lipitor 1/2 PO qd 90tabs Donte Mckinney 06/01/2005 20mg Tablets Singulair 1 by mouth every 90tabs Donte Mckinney 06/01/2005 10mg Tablets day Dulera 1 puff [facility] a [facility]te Mckinney 200-5mcg/Act Aerosol Azithromycin 1 tab on Wed, Wed Donte Mckinney 250mg and Fri Tablets Spiriva Respimat 2 puff daily J44.9 Unknown 2.5mcg/Act Aerosol Torsemide in by mouth daily Unknown 100mg Tablets Levalbuterol HCL four times a day J20.9 Unknown dx pneumonia 0.63mg/3ML Nebulizer History Medications Albuterol Sulfate as directed up to 30ml J44.1 Donte Mckinney 05/15/2019 - four times a day 05/15/2019 1.25mg/3ML Nebulizer Medications Administered in Office Medication SIG Qnty Indications Ordering Provider Date B-12 Injection Donte Mckinney 02/21/2019 Injection B-12 Injection Nurse 02/21/2019 Injection H1N1 Administration-Use Donte Mckinney 05/28/2009 Injection PPD Injection Donte Mckinney 06/01/2005 PPD Injection Donte Mckinney 12/17/2004 Immunizations CPT Code Status Date Vaccine Lot # [id number] Given 05/16/2019 Pneumovax Polyvalent Inj Im Q2035 Given 03/21/2019 Influenza Virus (Quadrivalent)Splitvirus 3 Years Of Age And Older Q2035 Given 03/21/2019 Influenza Virus (Quadrivalent)Splitvirus 3 [id number] Years Of Age And Older 47421 Given 03/21/2019 Influenza Virus Vaccine, Quadrivalent, Split, Preservative Free Q2035 Given 04/11/2018 Influenza Virus (Quadrivalent)Splitvirus 3 [id number] Years Of Age And Older Q2036 Given 03/23/2017 Flulaval Q2035 Given 03/23/2017 Influenza Virus (Quadrivalent)Splitvirus 3 Years Of Age And Older Q2037 Given 04/07/2016 Influenza Vaccine (Fluvirin) 1 Years Of Age Or [id number] Older 59743 Given 05/21/2015 Pneumococcal Conjugate Vaccine 13 Valent For [id number] Intramuscular Use Q2035 Given 03/19/2015 Influenza Virus (Quadrivalent)Splitvirus 3 [id number] Years Of Age And Older Q2037 Given 03/13/2014 Influenza Vaccine (Fluvirin) 3 Years Of Age Or Older Q2038 Given 04/04/2013 Influenza Vaccine (Fluzone) Administered Age 3 And Older 49691 Given 04/04/2013 Influenza Vaccine [id number] Q2037 Given 04/26/2012 Influenza Vaccine (Fluvirin) 3 Years Of Age Or [id number] Older Q2036 Given 04/15/2011 Flulaval [id number] 90389 Given 06/30/2010 Zostavax [id number] 24388 Given 04/15/2010 Influenza Vaccine [id number] 04806 Given 12/13/2009 Pneumovax Polyvalent Inj Im [id number] 25884 Given 04/23/2009 Influenza Vaccine 04657 Given 04/23/2009 Influenza Vaccine [id number] 46583 Given 04/17/2008 Influenza Vaccine 26550 90970 Given 04/12/2007 Influenza Vaccine 61841 45125 Given 04/16/2006 Influenza Vaccine 45561 Given 04/16/2006 Influenza Vaccine [id number] 55691 Given 05/05/2005 Influenza Vaccine [id number] 53414 Given 05/05/2005 Influenza Vaccine 18408 Given 01/11/2005 Tetanus And Diptheria Toxiods [id number] 06537 Given 12/30/2004 [place] [address] Given 07/19/1991 Tetanus And Diptheria Toxiods Vital Signs Date Vital Result Comment 05/25/2019 11:25am BP Systolic 182 mmHg BP Diastolic 88 mmHg Heart Rate 100 /min Respiratory Rate 22 /min Weight 183.00 lb O2 % BldC Oximetry 96 % 05/15/2019 11:49am BP Systolic 140 mmHg BP Diastolic 64 mmHg Heart Rate 88 /min Height 58 inches 4'10" O2 % BldC Oximetry 93 % Results Test Acquired Date Facility Test Result H/L Range Note General Health 05/15/2019 [facility] TSH 0.30 mIU/L Low 0.40-4.50 1 Panel [facility] [address] [place] [address] [phone] T4, Free 1.4 ng/dL Normal 0.8-1.8 CBC (Includes 05/15/2019 [facility] White 14.9 High 3.8-10.8 Diff/PLT) [address] Blood Cell Thousand/[place] [address] Count [phone] Red Blood Cell Count 3.48 Million/uL Low 3.80-5.10 Hemoglobin 10.3 g/dL Low 11.7-15.5 Hematocrit 30.4 % Low 35.0-45.0 MCV 87.4 fL Normal 80.0-100.0 MCH 29.6 pg Normal 27.0-33.0 MCHC 33.9 g/dL Normal 32.0-36.0 RDW 14.2 % Normal 11.0-15.0 Platelet Count 390 Thousand/uL Normal 140-400 MPV 9.2 fL Normal 7.5-12.5 Absolute Neutrophils 78088 cells/uL High 3568-3883 Absolute Lymphocytes 745 cells/uL Low 850-3900 Absolute Monocytes 313 cells/uL Normal 200-950 Absolute Eosinophils 0 cells/uL Low 15-500 Absolute Basophils 30 cells/uL Normal 0-200 Neutrophils 92.7 % High 38-80 Lymphocytes 5.0 % Low 15-49 Monocytes 2.1 % Normal 0-13 Eosinophils 0.0 % Normal 0-8 Basophils 0.2 % Normal 0-2 Comprehensive Metabolic 05/15/2019 [facility] Glucose 198 mg/dL High 65-139 2 Panel [address] [place], [place] [id number] [phone] Urea Nitrogen (BUN) 72 mg/dL High 7-25 Creatinine 1.83 mg/dL High 0.60-0.88 3 eGFR Non-Afr. Jordanian 25 mL/min/1.73m2 Low > Or = 60 [...] U/L High 6-29 Laboratory test 05/15/2019 [facility] Cortisone, Serum 0.8 g/dL 4 finding [address] [place] [address] [phone] Enhanced PDF Report [id number] SEE IMAGE CMP W/GFR 04/11/2019 [facility] Sodium 140 mmol/L 135-146 5 [address] [place], [place] [id number] [phone] Potassium 3.7 mmol/L 3.5-5.3 Chloride 102 mmol/L [...] 1.9-3.7 A/G Ratio 1.5 1.0-2.5 Egfr Non-Afr. Jordanian 24 ML/MIN/1.73M2 Low > Or = 60 [...] 1.9-3.7 A/G Ratio 1.5 1.0-2.5 Egfr Non-Afr. Jordanian 24 ML/MIN/1.73M2 Low > Or = 60 Egfr 28 ML/MIN/1.73M2 Low > Or = 60 CBC W/ Diff & PLT 04/11/2019 [facility] WBC 11.3 thous/L High 3.8 -10.8 [address] [place] [address] [phone] RBC 4.03 mill/L 3.80-5.10 Hemoglobin 11.6 g/dL Low 11.7-15.5 Hematocrit 35.3 % 35.0-45.0 MCV 87.6 FL 80.0-100.0 MCH 28.8 pg 27.0-33.0 MCHC 32.9 g/dL 32.0-36.0 RDW 14.3 % 11.0-15.0 Platelet Count 406 thous/L High 140-400 MPV 8.7 FL 7.5-12.5 Neutrophils,Absolute 6850 cells/L 2216-4488 Bands,Absolute PENDING Metamyelocytes,Absolute PENDING Myelocytes,Absolute PENDING Promyelocytes,Absolute [...] MPV 8.7 FL 7.5-12.5 Neutrophils,Absolute 6850 cells/L 4294-5310 Lymphocytes,Absolute 3640 cells/L 850-3900 Monocytes,Absolute 630 cells/L 200-950 Eosinophils,Absolute 60 cells/L 15-500 Basophils,Absolute 60 cells/L 0-200 Total Neutrophils,% 61.2 % 40-75 Total Lymphocytes,% 32.2 % 12-47 Monocytes,% 5.6 % 4-12 Eosinophils,% 0.5 % 0-4 Basophils,% 0.5 % 0-1 13 Lipid Panel 04/11/2019 [facility] Cholesterol 173 mg/dL <199 [address] [place] [address] [phone] HDL Cholesterol 56 mg/dL >50 Cholesterol/HDL Ratio [...] <130 19 Laboratory test finding 04/11/2019 [facility] Cortisol,A.M. PENDING [address] [place], [place] [address] [phone] Vitamin D,25-Hydroxy,Total,Immunoassay 32 NG/ML 30-100 20 Hemoglobin A1c 6.6 % High 0-5.6 21 TSH & T4,Free 04/11/2019 [facility] TSH 0.31 mIU/L Low 0.40-4.50 22 [address] [place], [place] [address] [phone] T4,Free 1.4 ng/dL 0.8-1.8 Laboratory test finding 04/11/2019 [facility] TSH 0.31 mIU/L Low 0.40-4.50 23 6 [place], [place] [address] [phone] T4,Free 1.4 ng/dL 0.8-1.8 Clinical PDF Report [id number] SEE IMAGE Hemoglobin A1c 6.6 % High [...] approximately 13% higher for people identified as -Jordanian. 4 Reference Range: AM: 1.2-3.5 PM: 0.6-2.8 This test was developed and its analytical performance characteristics have been determined by [facility]. It has not been cleared or approved by FDA. This assay has been validated pursuant to the CLIA regulations and is used for clinical purposes. 5 FASTING 6 Reference range for high altitude clients: 18-30 mmol/L 7 GLUCOSE REFERENCE RANGE BASED ON FASTING SPECIMEN. 8 The upper reference limit for Creatinine is approximately 13% higher for people identified as -Jordanian. 9 Reference range for high altitude clients: 18-30 mmol/L 10 GLUCOSE REFERENCE RANGE BASED ON FASTING SPECIMEN. 11 The upper reference limit for Creatinine is approximately 13% higher for people identified as -Jordanian. 12 Relative blood cell counts (%) should [...] the estimation of LDL-C. Danny SS et al.MARIAELENA.2013;310(19):3772-5520 Desirable range <100 mg/dL for primary prevention; [...] the estimation of LDL-C. Danny SS et al.MARIAELENA.2013;310(19):6497-7284 Desirable range <100 mg/dL for primary prevention; [...] Vit D, (D2,D3),LC/MS/MS is recommended: Order code 73393 (patients >2 yrs). 21 For someone without [...] Vit D, (D2,D3),LC/MS/MS is recommended: Order code 12465 (patients >2 yrs). 27 REFERENCE RANGE AM: 1-3 DAYS OLD: PREMATURE INFANTS (31-35 WEEKS): < OR = 15.0 MCG/DL TERM INFANTS: < OR = 14.0 MCG/DL 4 DAYS-1 MONTH: NOT ESTABLISHED 1 MONTH-11 MONTHS: 3.0-23.0 MCG/DL 1 YEAR-17 YEARS: 3.0-25.0 MCG/DL 18 YEARS OR OLDER: 4.0-22.0 MCG/DL Procedures Date Code Description Status 04/18/2019 17248 Therapeutic,Prophylactic Intramuscular Inj Completed 04/18/2019 39464 Non-Invcorrotid/Comp /Bilat Study Completed 04/17/2019 15114 Echocardiography Completed 04/11/2019 31211 Spirometry Graphic Record/Max Voluntary Vent Completed 04/11/2019 19415 EKG-Tracing & Report Completed 04/10/2019 52297 EKG-Tracing & Report Completed 04/04/2019 35147 Therapeutic,Prophylactic Intramuscular Inj Completed 03/21/2019 17339 Therapeutic,Prophylactic Intramuscular Inj Completed 02/07/2019 48473 Therapeutic,Prophylactic Intramuscular Inj Completed 01/24/2019 39590 Therapeutic,Prophylactic Intramuscular Inj Completed 01/10/2019 95534 Therapeutic,Prophylactic Intramuscular Inj Completed 12/27/2018 00124 Therapeutic,Prophylactic Intramuscular Inj Completed 12/15/2018 45105 Therapeutic,Prophylactic Intramuscular Inj Completed 11/29/2018 54214 Therapeutic,Prophylactic Intramuscular Inj Completed 03/11/2017 297044340 Bone Mineral Density Test Completed 07/22/2015 [id number] Mammogram Completed 05/13/2007 38848210 Colonoscopy Completed Medical Devices Description No Information [...] deficiency, unspecified Assessments Date Code Description Provider 05/25/2019 R06.02 Shortness of breath Donte Mckinney 05/25/2019 J44.1 Chronic obstructive pulmonary disease with (acute) Donte Mckinney exacerbation 05/25/2019 I65.23 Occlusion and stenosis of bilateral carotid arteries Donte Mckinney 05/25/2019 T78.40xD Allergy, unspecified, subsequent encounter Gauss, [facility] 05/25/2019 E78.5 Hyperlipidemia, unspecified Gauss, [facility] 05/25/2019 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 Gauss, [facility] 05/25/2019 E66.09 Other obesity due to excess calories [facility], [facility] 05/25/2019 I11.9 Hypertensive heart disease without heart failure Gauss, [facility] 05/25/2019 E11.65 Type 2 diabetes mellitus with hyperglycemia Vtuss, [facility] 05/25/2019 E03.9 Hypothyroidism, unspecified Gauss, [facility] 05/25/2019 J40 Bronchitis, not specified as acute or chronic Gauss, [facility] 05/25/2019 J45.30 Mild persistent asthma, uncomplicated [facility], [facility] 05/16/2019 T78.40xD Allergy, unspecified, subsequent encounter [facility], [facility] 05/15/2019 J44.1 Chronic obstructive pulmonary disease with (acute) [facility] [place], [facility] exacerbation 05/15/2019 T78.40xD Allergy, unspecified, subsequent encounter Gauss, [facility] 05/15/2019 I65.23 Occlusion and stenosis of bilateral carotid arteries Gauss , [facility] 05/15/2019 E78.2 Mixed hyperlipidemia [facility], [facility] 05/15/2019 R06.02 Shortness of breath [facility], [facility] 05/15/2019 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 Vtuss, [facility] 05/15/2019 E66.09 Other obesity due to excess calories [facility], [facility] 05/15/2019 I11.9 Hypertensive heart disease without heart failure Gauss, [facility] 04/24/2019 R26.89 Other abnormalities of gait and mobility Gauss, [facility] 04/24/2019 T78.40xD Allergy, unspecified, subsequent encounter Gauss, [facility] 04/24/2019 I65.23 Occlusion and stenosis of bilateral carotid arteries Gauss , [facility] 04/24/2019 I34.0 Nonrheumatic mitral (valve) insufficiency Gauss, [facility] 04/24/2019 E78.2 Mixed hyperlipidemia Gauss, [facility] 04/24/2019 R06.02 Shortness of breath Gauss, [facility] 04/24/2019 J44.9 Chronic obstructive pulmonary disease, unspecified Gauss, [facility] 04/24/2019 J44.1 Chronic obstructive pulmonary disease with (acute) Gataylor, Donte exacerbation 04/18/2019 T78.40xD Allergy, unspecified, subsequent encounter Gataylor, Donte 04/18/2019 I65.23 Occlusion and stenosis of bilateral carotid arteries [facility], [place] , [facility] 04/17/2019 I34.0 Nonrheumatic mitral (valve) insufficiency Gauss, Donte 04/11/2019 E78.2 Mixed hyperlipidemia Gauss, [facility] 04/11/2019 R06.02 Shortness of breath Gauss, [facility] 04/11/2019 J44.9 Chronic obstructive pulmonary disease, unspecified Gauss, [facility] 04/11/2019 R05 Cough Gauss, [facility] 04/10/2019 E78.2 Mixed hyperlipidemia [facility] [place], [facility] 04/04/2019 T78.40xD Allergy, unspecified, subsequent encounter Gataylor, Donte 03/21/2019 Z23 [facility] T78.40xD Allergy, unspecified, subsequent encounter Gataylor, [facility] 02/21/2019 E11.65 Type 2 diabetes mellitus with hyperglycemia [facility] 02/14/2019 R42 Dizziness and giddiness [facility], [facility] 02/14/2019 T78.40xD Allergy, unspecified, subsequent encounter [facility] 02/14/2019 E11.65 Type 2 diabetes mellitus with hyperglycemia [facility] 02/14/2019 E03.9 Hypothyroidism, unspecified [facility] 02/14/2019 J44.9 Chronic obstructive pulmonary disease, unspecified [facility] [place], [facility] 02/14/2019 J40 Bronchitis, not specified as acute or chronic [facility], [place], [facility] 02/14/2019 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 [facility], [facility] 02/14/2019 E66.09 Other obesity due to excess calories [facility], [facility] 02/14/2019 I11.9 Hypertensive heart disease without heart failure [facility], [facility] 02/14/2019 J45.30 Mild persistent asthma, uncomplicated [facility] [place], [facility] 02/14/2019 M54.5 Low back pain [facility] 02/14/2019 J44.0 Chronic obstructive pulmonary disease with acute [facility] lower respiratory infection 02/14/2019 I73.9 Peripheral vascular disease, unspecified Gauss, [facility] 02/14/2019 I65.23 Occlusion and stenosis of bilateral carotid arteries Gauss , [facility] 02/14/2019 R26.89 Other abnormalities of gait and mobility Gauss, [facility] 02/07/2019 T78.40xD Allergy, unspecified, subsequent encounter Gauss, [facility] 01/24/2019 T78.40xD Allergy, unspecified, subsequent encounter Gauss, [facility] 01/17/2019 E11.65 Type 2 diabetes mellitus with hyperglycemia Gauss, [facility] 01/17/2019 E03.9 Hypothyroidism, unspecified Gauss, [facility] 01/17/2019 T78.40xD Allergy, unspecified, subsequent encounter Gauss, [facility] 01/17/2019 J44.9 Chronic obstructive pulmonary disease, unspecified Gauss, [facility] 01/17/2019 J40 Bronchitis, not specified as acute or chronic Gauss, [facility] 01/17/2019 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 Gauss, [facility] 01/17/2019 E66.09 Other obesity due to excess calories Gauss, [facility] 01/17/2019 I11.9 Hypertensive heart disease without heart failure Gauss, [facility] 01/10/2019 T78.40xD Allergy, unspecified, subsequent encounter Gauss, [facility] 12/27/2018 T78.40xD Allergy, unspecified, subsequent encounter Gauss, [facility] 12/20/2018 T78.40xD Allergy, unspecified, subsequent encounter Gauss, [facility] 12/20/2018 E11.65 Type 2 diabetes mellitus with hyperglycemia Gauss, [facility] 12/20/2018 E03.9 Hypothyroidism, unspecified Gauss, [facility] 12/20/2018 J44.9 Chronic obstructive pulmonary disease, unspecified Gauss, [facility] 12/20/2018 J40 Bronchitis, not specified as acute or chronic Gauss, [facility] 12/20/2018 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 Gauss, [facility] 12/20/2018 E66.09 Other obesity due to excess calories Gauss, [facility] 12/20/2018 I11.9 Hypertensive heart disease without heart failure Gauss, [facility] 12/20/2018 E78.5 Hyperlipidemia, unspecified Gauss, [facility] 12/20/2018 J44.1 Chronic obstructive pulmonary disease with (acute) Gauss, Donte exacerbation 12/20/2018 R06.02 Shortness of breath Pradeeptaylor Donte 12/20/2018 I34.0 Nonrheumatic mitral (valve) insufficiency Faye Donte 12/20/2018 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 Pradeeptaylor Donte 12/20/2018 E55.9 Vitamin D deficiency, unspecified Pradeeptaylor Donte 12/15/2018 T78.40xD Allergy, unspecified, subsequent encounter Donte Mckinney 11/29/2018 T78.40xD Allergy, unspecified, subsequent encounter Donte Mckinney Plan of Treatment Future Appointment(s):06/19/2019 10:30 am - Donte [facility]inney [facility] [id number] 8:30 am - Nurse at Main [id number]/15/2019 - Donte MckinneyJ44.1 Chronic obstructive pulmonary disease with (acute) exacerbationNew Medication: Amoxicillin/Clavulanate Potassium 500-125 mg - 1 by mouth three times a dayAlbuterol Sulfate 1.25 mg/3ML - as directed up to four times a dayT78.40xD Allergy, unspecified, subsequent deolzvojsA39.23 Occlusion and stenosis of bilateral carotid arteriesComments:Discussed role of life style choices in dietary fats and exercise plays on evolution of tulalip disease and importance of controlling cholesterol. Medications role and side effects in disease progression prevention discussed and need for compliance with prescribed treatment. Follow up testing for progression such as ultrasound surveillance ubcbryhuP45.2 Mixed idsetprrlmwqunQ59.02 Shortness of dnkuikP35.5 Adrenomedullary yfcfgohikgbbxK01.09 Other obesity due to excess caloriesComments :Discussed [...] and laboratory tests related to medication reviewed. Functional Status Description No Information Available Mental Status Description No Information Available Referrals Refer to Dr Reason for Referral Status Appt Date Created Servando Disla MD Created [address] [place], [place] [id number] [phone] Denver Hudson MD Created [address] [place], [place] [address] [phone] Marcello Lino M.D. [facility] Closed 02/27/[address] [place], [place] [address] [phone] Servando Disla MD Closed [facility] [place], [place] [address] [phone]
--- OUTSIDE RECORDS SUMMARY | 2019-07-13 12:34 | XMS REPORT | Continuity of Care Document ---
:1935 Author Name Personal Consultant, System Address Unavailable Unavailable , Care Team Providers Name Role Phone Faye DUFFY, Donte Unavailable Denver Hudson DO Unavailable NATALYA DUFFY, LASHAY Lugo Unavailable Antonia DUFFY, Saul Brady Unavailable Ranulfo DUFFY, Maryann Unavailable HOKERVIN, Hematology DIrect Address Unavailable Unavailable Edmundo Diaz M Unavailable Floyd DUFFY, Amisha Caldwell Unavailable Tasha DPM, Main Unavailable Hilary MSN NPC, Highland Unavailable Elizabeth Msn Npc, Mela Le Unavailable Marlyn MSN, NPC, Gregoria Unavailable Matti DUFFY, Dr. Guero Melo Unavailable Niharika LRT, Tera Unavailable Unavailable Rodriguez SALES SUPPORT CONSULTANT, Pancho Unavailable Unavailable Reginald COURT OF APPEALS JUDGE, Reji Unavailable Unavailable Cristopher SALES SUPPORT CONSULTANT, Kavitha Unavailable Unavailable Margo SALES SUPPORT CONSULTANT, Yael Unavailable Unavailable Loveless SALES SUPPORT CONSULTANT, Ally Unavailable Unavailable Davin SALES SUPPORT CONSULTANT, Yvette Unavailable Unavailable Beaudin SALES SUPPORT CONSULTANT, Kobe Unavailable Unavailable Flaheryt LRT, Guero Unavailable Unavailable Taylor SALES SUPPORT CONSULTANT, Briseida Unavailable Unavailable Harp LRT, Piper Unavailable [...] Tablet; 1 daily (10 MG) CALCIUM-VITAMIN D, 135-528KY-PMWH (Oral Tablet); three times daily (250-125 MG-UNIT) [...] 0 Comments: 30mg po x 2 days, [id number] po x 2 days ehex80ps po x 2 days, then stop Qvar [...] OXIDE MEASUREMENT Date: 01-Aug-2018 Status: Completed 2018 (57056) AIRFLOW RESISTANCE MEASUREMENT: Status: Completed 17-Nov-2018 PULM FUNCT TEST OSCILLOMETRY (76069) THORACIC GAS VOLUME: AIRWAY Status: Completed 17-Nov-2018 CLOSING VOLUME MEASUREMENT: PULM FUNCTION TEST BY GAS (02483) TOTAL VITAL CAPACITY (32303) Status: Completed 17-Nov-2018 MEASUREMENT OF NITRIC Status: Completed 17-Nov-2018 OXIDE (74139) MEASUREMENT OF NITRIC Status: Completed 08-Jun-2018 OXIDE (11820) RESPIRATORY FLOW VOLUME LOOP Status: Completed 08-Jun-2018 (72604) TOTAL VITAL CAPACITY (99242) Status: Completed 16-Feb-2018 TOTAL BODY PLETHYSMOGRAPHY: Status: Completed 16-Feb-2018 AIRFLOW RESISTANCE MEASUREMENT (96331) THORACIC GAS VOLUME: AIRWAY Status: Completed 16-Feb-2018 CLOSING VOLUME MEASUREMENT: PULM FUNCTION TEST BY GAS (75566) RESPIRATORY FLOW VOLUME LOOP Status: Completed 16-Feb-2018 (94113) DLCO (CARBON MONOXIDE DIFFUSING Status: Completed 16-Feb-2018 CAPACITY) (73681) AIRFLOW RESISTANCE MEASUREMENT: Status: Completed 16-Feb-2018 PULM FUNCT TEST OSCILLOMETRY (33551) PRE AND POST (76969) Status: Completed 16-Feb-2018 RESPIRATORY FLOW VOLUME LOOP Status: Completed 17-Nov-2017 (75894) TOTAL VITAL CAPACITY (34705) Status: Completed 26-Feb-2017 TOTAL BODY PLETHYSMOGRAPHY (01545) Status: Completed 26-Feb-2017 TGV THORACIC GAS VOLUME: AIRWAY Status: Completed 26-Feb-2017 CLOSING VOLUME MEASUREMENT: PULM FUNCTION TEST BY GAS (77037) RESPIRATORY FLOW VOLUME LOOP Status: Completed 26-Feb-2017 (29206) DLCO (CARBON MONOXIDE DIFFUSING Status: Completed 26-Feb-2017 CAPACITY) (44288) AIRFLOW RESISTANCE MEASUREMENT: Status: Completed 26-Feb-2017 PULM FUNCT TEST OSCILLOMETRY (53237) PRE AND POST (59349) Status: Completed 26-Feb-2017 RESPIRATORY FLOW VOLUME LOOP Status: Completed 09-Sep-2016 (19089) PRE AND POST (76663) Status: Completed 09-Sep-2016 TOTAL VITAL CAPACITY (25264) Status: Completed 17-Apr-2016 TOTAL BODY PLETHYSMOGRAPHY (43126) Status: Completed 17-Apr-2016 TGV THORACIC GAS VOLUME: AIRWAY Status: Completed 17-Apr-2016 CLOSING VOLUME MEASUREMENT: PULM FUNCTION TEST BY GAS (57243) RESPIRATORY FLOW VOLUME LOOP Status: Completed 17-Apr-2016 (35931) DLCO (CARBON MONOXIDE DIFFUSING Status: Completed 17-Apr-2016 CAPACITY) (30511) AIRFLOW RESISTANCE MEASUREMENT: Status: Completed 17-Apr-2016 PULM FUNCT TEST OSCILLOMETRY (38677) PRE AND POST (16844) Status: Completed 17-Apr-2016 RESPIRATORY FLOW VOLUME LOOP Status: Completed 26-Nov-2015 (00501) TOTAL VITAL CAPACITY (91023) Status: Completed 26-Aug-2015 TOTAL BODY PLETHYSMOGRAPHY (05708) Status: Completed 26-Aug-2015 TGV THORACIC GAS VOLUME: AIRWAY Status: Completed 26-Aug-2015 CLOSING VOLUME MEASUREMENT: PULM FUNCTION TEST BY GAS (50793) RESPIRATORY FLOW VOLUME LOOP Status: Completed 26-Aug-2015 (98413) DLCO (CARBON MONOXIDE DIFFUSING Status: Completed 26-Aug-2015 CAPACITY) (58962) AIRFLOW RESISTANCE MEASUREMENT: Status: Completed 26-Aug-2015 PULM FUNCT TEST OSCILLOMETRY (87134) PRE AND POST (22679) Status: Completed 26-Aug-2015 AIRFLOW RESISTANCE MEASUREMENT: Status: Completed 19-Apr-2015 PULM FUNCT TEST OSCILLOMETRY (41763) TOTAL VITAL CAPACITY (08207) Status: Completed 19-Apr-2015 TOTAL BODY PLETHYSMOGRAPHY: AIRWAY Status: Completed 19-Apr-2015 CLOSING VOLUME MEASUREMENT: PULM FUNCT TST PLETHYSMOGRAP (68719) RESPIRATORY FLOW VOLUME LOOP Status: Completed 19-Apr-2015 (68856) THORACIC GAS VOLUME: AIRWAY Status: Completed 19-Apr-2015 CLOSING VOLUME MEASUREMENT: PULM FUNCTION TEST BY GAS (39634) DLCO (CARBON MONOXIDE DIFFUSING Status: Completed 19-Apr-2015 CAPACITY) (12601) PRE AND POST (47678) Status: Completed 19-Apr-2015 RESPIRATORY FLOW VOLUME LOOP Status: Completed 02-Aug-2014 (33269) PRE AND POST (21157) Status: Completed 02-Aug-2014 RESPIRATORY FLOW VOLUME LOOP Status: Completed 21-Mar-2014 (59612) PRE AND POST (74395) Status: Completed 21-Mar-2014 MEDICARE RX CODE: AT LEAST ONE Status: Completed 29-May-2013 PRESCRIPTION CREATED DURING THE ENCOUNTER WAS GENERATED AND TRANSMITTED ELECTRONICALLY USING A QUALIFIED ERX SYSTEM (G8553) RESPIRATORY FLOW VOLUME LOOP Status: Completed 10-Apr-2013 (81633) PRE AND POST (24896) Status: Completed 10-Apr-2013 RESPIRATORY FLOW VOLUME LOOP Status: Completed 02-Mar-2013 (30618) SPIROMETRY WITH BRONCHODILATOR Status: Completed 02-Mar-2013 (51243) MEDICARE RX CODE: AT LEAST ONE Status: Completed 07-Oct-2012 PRESCRIPTION CREATED DURING THE ENCOUNTER WAS GENERATED AND TRANSMITTED ELECTRONICALLY USING A QUALIFIED ERX SYSTEM (G8553) REST/EXERCISE OXIMETRY (00949) Status: Completed 07-Oct-2012 RESPIRATORY FLOW VOLUME LOOP Status: Completed 07-Oct-2012 (65178) PRE AND POST W/ RT (61727) Status: Completed 07-Oct-2012 ACT Status: Completed 03-Feb-2011 [...] Completed 21-Mar-2014 Comments: no obvious change to PAARDISE abnormality, official interpretation and comparison from the [...] pleural scar in RML PRE AND POST (03540)Result: Hemoptysis: No Status: Completed 17-Nov-2018 CAT SCAN OF CHEST: CT THORAX W/O DYE (69933)Result: Status: Completed 2018 Are you or could you become ?: No; When was you last CXR/CT?: over week ago; Petroleum Inspector Supervisor: Tera Bundy LRT PRE AND POST ([id number])Result: Hemoptysis: No Status: Completed 01-Aug-2018 PRE AND POST (66336)Result: Hemoptysis: No Status: Completed 08-Jun-2018 CAT SCAN OF CHEST: CT THORAX W/O DYE ([id number])Result: Status: Completed 2017 Are you or could you become ?: No; When was you last CXR/CT?: over a week ago; Petroleum Inspector Supervisor: JUAN Hurtado PRE AND POST ([id number])Result: Hemoptysis: No Status: Completed 17-Nov-2017 CHEST X-RAY, PA AND LATERAL (17689)Result: Are you Status: Completed 2016 or could you become ?: No; When was you last CXR/CT?: over week ago; Petroleum Inspector Supervisor: AJITH BoothT CHEST X-RAY, PA AND LATERAL ([id number])Result: Are you Date: 30-Nov-2016 or could you become ?: No; When was Status: Completed 2016 you last CXR/CT?: over week ago; Petroleum Inspector Supervisor: Tera Bundy, LRT CHEST X-RAY, PA AND LATERAL ([id number])Result: Are you Date: 30-Nov-2016 or could you become ?: No; When was Status: Completed 2016 you last CXR/CT?: over week ago; Petroleum Inspector Supervisor: Comments: today at [facility] AJITH BoothT CHEST X-RAY, PA AND LATERAL ([id number])Result: Are you Status: Completed 2016 or could you become ?: No; When was you last CXR/CT?: OVER WEEK AGO; Petroleum Inspector Supervisor: Tera Bundy, LRT CT THORAX W/O DYE ([id number])Result: Are you or Status: Completed could you become ?: No; When was you last CXR/CT?: over week ago; Petroleum Inspector Supervisor: Tera Bundy, LRT CT THORAX W/O DYE ([id number])Result: Are you or Status: Completed could you become ?: No; When was you last CXR/CT?: OVER WEEK AGO; Petroleum Inspector Supervisor: Tera Bundy, LRT CHEST X-RAY, PA AND LATERAL ([id number])Result: Are you Status: Completed 2015 or could you become ?: No; When was you last CXR/CT?: over week ago; Petroleum Inspector Supervisor: Tera Bundy LRT PRE AND POST ([id number])Result: Hemoptysis: No Status: Completed 26-Nov-2015 CT THORAX W/O DYE ([id number])Result: Are you or Status: Completed 2015 could you become ?: No; When was you last CXR/CT?: over a week ago; Petroleum Inspector Supervisor: Tera Bundy, LRT CAT SCAN OF CHEST: CT THORAX W/O DYE ([id number])Result: Status: Completed 2014 Are you or could you become ?: No; When was you last CXR/CT?: over a week ago; Petroleum Inspector Supervisor: Tera Bundy, LRT CAT SCAN OF CHEST: CT THORAX W/O DYE ([id number])Result: Status: Completed 2014 Are you or could you become ?: No; When was you last CXR/CT?: 2014; Petroleum Inspector Supervisor: Guero Flaherty, LRT CAT SCAN OF CHEST: CT THORAX W/O DYE ([id number])Result: Status: Completed 2014 Are you or could you become ?: No; When was you last CXR/CT?: OVER 1 WEEK AGO; Petroleum Inspector Supervisor: AJITH BoothT CT THORAX W/O DYE ([id number])Result: Are you or Status: Completed could you become ?: No; When was you last CXR/CT?: 04/01; Petroleum Inspector Supervisor: JUAN Busch CHEST X-RAY, PA AND LATERAL ([id number])Result: Are you Status: Completed 2013 or could you become ?: No; When was you last CXR/CT?: over 2 months ago; Petroleum Inspector Supervisor: JUAN Booth CT THORAX W/O DYE ([id number])Result: Are you or Status: Completed 2013 could you become ?: No; When was you last CXR/CT?: last month; Petroleum Inspector Supervisor: JUAN Booth CT THORAX W/O DYE ([id number])Result: Are you or Date: 21-Nov-2013 could you become ?: No; When was you last Status: Completed 2013 CXR/CT?: last month; Petroleum Inspector Supervisor: JUAN Busch CAT SCAN OF CHEST: CT THORAX W/O DYE ([id number])Result: Status: Completed 2012 Are you or could you become ?: No; Petroleum Inspector Supervisor: Rosalinda Rodriguez LPN CT THORAX W/O DYE ([id number])Result: Are you or Status: Completed 2012 could you become ?: No; Petroleum Inspector Supervisor: JUAN Booth ACT: ASSESSMENT OF DISEASE: [...] Score: 17 CHEST X-RAY, PA AND LATERAL ([id number])Result: Are you Status: Completed 2012 or could you become ?: No; Petroleum Inspector Supervisor: Tera More, LRT Asthma Control Test (ACT)Result: [...] Score] Score: 19 RESPIRATORY FLOW VOLUME LOOP (43494)Result: Date: 04-Aug-2011 Hemoptysis: No; Medication Used: Albuterol 0.083% kendell aerosol; Exhaust And Muffler Fitter: Reji Montelongo RRT RESPIRATORY FLOW VOLUME LOOP (15875)Result: Date: 01-May-2011 Hemoptysis: No; Medication Used: Albuterol 0.083% kendell aerosol; Exhaust And Muffler Fitter: Yael Aragon LPN Immunizations Influenza (3 years [...] Skin Test, Intradermal On: 03-Mar-2013 Lot #: [id number] Family History Allergic Rhinitis Status: Active Comments: Father. Emphysema Status: Active Comments: Father. Social History Alcohol use: Occasional alcohol use. Current work status: Retired. Marital status: . No caffeine use No drug use Tobacco use: Never smoker. Never smoker Female Plan of Treatment REST OXIMETRY (75985) Start: 17-Nov-2018 Intent CONTINUOUS OVERNIGHT OXIMETRY Start: 08-Jun-2018 Intent (45337) Comments: on cpap REST OXIMETRY (28259) Start: 16-Feb-2018 Intent EXHALED NITRIC OXIDE MEASUREMENT Start: 17-Nov-2017 Intent (40076) Comments: Evaluated patient's nitric oxide. The results were 16 ppb RESPIRATORY FLOW VOLUME LOOP (25583) Start: 30-Nov-2016 Intent SIMPLE PFT: BASELINE PULMONARY Start: 30-Nov-2016 Intent FUNCTION TEST (PFT) (17970) REST OXIMETRY (73465) Start: 09-Sep-2016 Intent REST OXIMETRY (96532) Start: 26-Nov-2015 Intent REST OXIMETRY (33963) Start: 19-Apr-2015 Intent RESPIRATORY FLOW VOLUME LOOP (44222) Start: 11-Oct-2014 Intent PRE AND POST (91292) Start: 11-Oct-2014 Intent REST/ EXERCISE OXIMETRY (01835) Start: 21-Nov-2013 Intent TOTAL VITAL CAPACITY (34308) Start: 21-Nov-2013 Intent TOTAL BODY PLETHYSMOGRAPHY (60321) Start: 21-Nov-2013 Intent TGV THORACIC GAS VOLUME: AIRWAY Start: 21-Nov-2013 Intent CLOSING VOLUME MEASUREMENT: PULM FUNCTION TEST BY GAS (38099) RESPIRATORY FLOW VOLUME LOOP (17434) Start: 21-Nov-2013 Intent DLCO (CARBON MONOXIDE DIFFUSING Start: 21-Nov-2013 Intent CAPACITY) (40239) AIRFLOW RESISTANCE MEASUREMENT: PULM Start: 21-Nov-2013 Intent FUNCT TEST OSCILLOMETRY (86231) PRE AND POST (86073) Start: 21-Nov-2013 Intent REST OXIMETRY (41453) Start: 06-Jul-2013 Intent RESPIRATORY FLOW VOLUME LOOP (44215) Start: 06-Jul-2013 Intent PRE AND POST (35647) Start: 06-Jul-2013 Intent BRONCHOSCOPY IN ENDO (76967) Start: 12-May-2013 Intent REST/ EXERCISE OXIMETRY (50966) Start: 02-Mar-2013 Intent ACT: ASSESSMENT OF DISEASE: ASTHMA Start: 02-Mar-2013 Intent SYMPTOMS EVALUATE (1005F) REST/EXERCISE OXIMETRY (80756) Start: 08-Aug-2012 Intent RESPIRATORY FLOW VOLUME LOOP (51383) Start: 08-Aug-2012 Intent PRE/POST (41899) Start: 08-Aug-2012 Intent RESPIRATORY FLOW VOLUME LOOP (67643) Start: 04-Feb-2012 Intent EXERCISE OXIMETRY (70641) Start: 04-Feb-2012 Intent REST OXIMETRY (60465) Start: 04-Feb-2012 Intent PRE/POST (23043) Start: 04-Feb-2012 Intent PRE/POST W/ RT (13758) Start: 04-Aug-2011 Intent REST OXIMETRY (61355) Start: 04-Aug-2011 Intent EXERCISE OXIMETRY (15268) Start: 04-Aug-2011 Intent Pre/Post (94213) Start: 01-May-2011 Intent Medical; PRE AND POST PFT - Start: 19-Jun-2019 13:00 Appointment [facility]; FOLLOW UP 30 - MD, PPRT, FENO, R/E, moved from 03/22 Start: 19-Jun-2019 13:15 Appointment Request Pulmonary [facility] DO Denver Hudson SPUTUM CULTURE (28072) Start: 20-Apr-2019 10:48 Request BUN (BLOOD UREA NITROGEN) (51387) Start: 16-Aug-2018 10:40 Request CREATININE BLOOD (37552) Start: 16-Aug-2018 10:40 Request SPUTUM CULTURE (16924) Start: 11-Aug-2018 11:01 Request SPUTUM CULTURE (05385) Start: 29-Jul-2018 10:01 Request CANDACE SCREEN (42422) Start: 17-Nov-2017 14:20 Request RHEUMATOID FACTOR-QUANT (74292) Start: 17-Nov-2017 14:20 Request SED RATE ERYTHROCYTE (20176) Start: 17-Nov-2017 14:20 Request Comments: ICD 279.49 RHEUMATOID FACTOR-QUANT (10668) Start: 17-Nov-2017 14:19 Request BFLYX-5-DGTIXHANVZZ-TOTAL (20029) Start: 17-Nov-2017 14:19 Request FECVD-4-CWFCPUZBGFC-PHEN (58529) Start: 17-Nov-2017 14:19 Request QUANTATATIVE IMMUNOGLOBULINS (52362) Start: 17-Nov-2017 14:15 Request IMMUNOGLOBULIN E (IgE) (57320) Start: 17-Nov-2017 14:15 Request CBC, PLATELETS & AUT DIFF (42867) Start: 17-Nov-2017 14:15 Request SPUTUM CULTURE (39044) Start: 03-May-2017 14:34 Request CBC, PLATELETS & AUT DIFF (84502) Start: 26-Feb-2017 10:15 Request QUANTATATIVE IMMUNOGLOBULINS (21109) Start: 26-Feb-2017 10:15 Request IMMUNOGLOBULIN E (IgE) (61822) Start: 26-Feb-2017 10:15 Request DYSPNEA : FeNO [...] PSEUDOMONAS : Start flutter device- faxed to [facility] Indication:BACTERIAL INFECTION DUE TO PSEUDOMONAS ASTHMA (Renamed from AIRWAY HYPERREACTIVITY) : Continue with Spiriva with 2.5mcg samples to replace low dose for a trial Indication:ASTHMA (Renamed from AIRWAY HYPERREACTIVITY) OBSTRUCTIVE SLEEP APNEA : Change to auto titrating CPAP- faxed to [facility] already Indication:OBSTRUCTIVE SLEEP APNEA ASTHMA (Renamed from [...] DISEASE) ASTHMA (Renamed from AIRWAY HYPERREACTIVITY) : FU 15- Dr. Denver Hudson Indication:ASTHMA (Renamed from [...] (Renamed from AIRWAY HYPERREACTIVITY) Results SPUTUM CULTURE (11292) Ordered On: 09-May-2014 CULTURE, SPUTUM pseudomonas (Normal) SPUTUM CULTURE (95191) Ordered On: 20-Apr-2014 CULTURE, SPUTUM e coli Comments: see scanned doc (Normal) NVYKH-8-[id number]-TOTAL Ordered On: 29-May-2013 (66123) QFPBS-2-QMPQBXLZBXB-TOTAL see scanned doc (Normal) TUJCV-8-EXGTVVCXBEA-PHEN Ordered On: 29-May-2013 (64033) GDJJK-2-RRDNUEFZKBO-PHEN MM (Normal) IMMUN SUBCLAS-IGG1,2,3 & Ordered On: 29-May-2013 4 (36732) IMMUN SUBCLAS-IGG1,2,3 & 4 see scanned doc (Normal) RHEUMATOID FACTOR-QUANT Ordered On: 29-May-2013 (92235) RHEUMATOID FACTOR-QUANT Range: 0 [iU] - 15 [iU] see scanned doc [iU] (Normal) ANCA C&P W/REFLEX (78250) Ordered On: 29-May-2013 ANCA - C see scanned doc (Normal) CBC & PLATELETS (AUTO) Ordered On: 29-May-2013 (91323) BLOOD COUNT, PLATELET, AUTOMATED see scanned doc [...] (Normal) IMMUNOGLOBULIN E (IgE) Ordered On: 29-May-2013 (11607) IMMUNOGLOBULIN E (IgE) Range: 0 mg/dL - 380 mg/dL see scanned doc mg/dL (Abnormal) ACID FAST CUL/SMEAR Ordered On: 17-May-2013 ACID FAST CUL/SMEAR See Comments: SPECIMEN DESCRIPTION Note (Normal) BRONCHIAL WASHINGSSPECIAL REQUESTS ...ACID FAST SMEAR NO ACID FAST BACILLI (CONCENTRATED SMEAR)CULTURE RESULTS NO ACID FAST BACILLI ISOLATED AFTER 8 WEEKSREPORT STATUS FINAL 07/12/2013Unless otherwise specified, testing performed by [facility] [place] [address] FUNGUS CULTURE Ordered On: 17-May-2013 FUNGUS CULTURE See Note Comments: SPECIMEN DESCRIPTION (Normal) BRONCHIAL WASHINGSSPECIAL REQUESTS NONECULTURE RESULTS BROOKE ALBICANSREPORT STATUS FINAL 06/14/2013Unless otherwise specified, testing performed by [facility] [place] [address] LEGIONELLA CULTURE Ordered On: 17-May-2013 LEGIONELLA CULTURE See Comments: SPECIMEN DESCRIPTION Note (Normal) BRONCHIAL WASHINGSSPECIAL REQUESTS NONECULTURE RESULTS CULTURE DISCONTINUED DUE TO BACTERIAL CONTAMINAT IONREPORT STATUS FINAL 05/19/2013Unless otherwise specified, testing performed by [facility] [place] [address] LEGIONELLA DFA Ordered On: 17-May-2013 LEGIONELLA DFA See Note Comments: SPECIMEN DESCRIPTION (Normal) BRONCHIAL WASHINGSSPECIAL REQUESTS NONERESULT NEGATIVE FOR LEGIONELLA PNEUMOPHILA BY DFAREPORT STATUS FINAL 05/17/2013Unless otherwise specified, testing performed by [facility] [address] [place] [address] RESPIRATORY CULTURE Ordered On: 17-May-2013 RESPIRATORY CULTURE [...] <=1 SUSCEPTIBLEUnless otherwise specified, testing performed by [facility] [address] [place] [address]61 PT (PROTHROMBIN TIME) Ordered On: 12-May-2013 (91574) INR 0.95 (Normal) Comments: SUGGESTED THERAPEUTIC RANGES USING INR FORSTABILIZED ANTICOAGULATED PATIENTS:STANDARD DOSE THERAPY INR 2.0-3.0 DVT, PE, PREVENT DVT OR EMBOLISMHIGH DOSE THERAPY INR 2.5-3.5 PREVENT EMBOLISM FROM MECHANICAL HEART VALVEUnless otherwise specified, testing performed by [facility] [address] [place] [address] 96248 PT 10.5 {SEC} (Normal) Range: 9.2 {SEC} - 11.9 {SEC} PLATELET COUNT (10605) Ordered On: 12-May-2013 PLT 301 10*3/uL (Normal) Range: 150 10*3/uL - 400 10*3/uL Comments: Unless otherwise specified, testing performed by [facility] [address] [place] [address] PTT (ACTIVATED PARTIAL Ordered On: 12-May-2013 THROMBOPLASTIN TIME) (63290) APTT 27.1 {SEC} (Normal) Range: 22.0 {SEC} - 32.6 {SEC} Comments: Unless otherwise specified, testing performed by [facility] [address] [place] [address] SKIN TEST INTRADERMAL TB Ordered On: 03-Mar-2013 Comments: LA LOT# [id number] EXP : (94954) 03/2014 SKIN TEST INTRADERMAL TB Comments: negative negative (Normal) SPUTUM AFB (04655) Ordered On: 02-Mar-2013 Comments: x 3 TUBERCLE CULTURE negative Comments: also negative on 03/06 and (Normal) 03/07 samples collected SPUTUM CYTOLOGY (56290) Ordered On: 06-Mar-2013 SPUTUM CYTOLOGY negative Comments: on both 03/06 and 03/07 (Normal) samples collected SPUTUM CULTURE (98012) Ordered On: 02-Mar-2013 CULTURE, SPUTUM abnormal Comments: [...] ACUTE BRONCHITIS [facility] Historical Summary 17-Nov-2018 13:45 To 11-Nov-2018 9:02 Encounter Reason: ASTHMA, FOLLOW UP - The last clinic visit was 4 month(s) ago (And since that appointment the patient [facility] Office has seen infectious disease [...] ago (And since that appointment the patient [facility] Office has seen infectious disease August 23, [...] using cpap nightly. home care company is [employer]. no issues and no snoring with cpap [...] Historical Summary 17-Nov-2018 13:45 To 17-Nov-2018 13:45 [facility] Transition of Care 29-Aug-2018 7:49 To 29-Aug-2018 7:51 Encounter Diagnosis: IGG DEFICIENCY [facility] Office Order Only 16-Aug-2018 10:36 To 16-Aug-2018 10:40 Encounter Diagnosis: ACUTE BRONCHITIS [facility] Office Order Only 11-Aug-2018 11:01 To 11-Aug-2018 11:05 Encounter Diagnosis: ABNORMAL SPUTUM [facility] Office Visit 01-Aug-2018 9:30 To 02-Aug-2018 [...] using cpap nightly. home care company is [employer]. no issues and no s noring with [...] To 29-Jul-2018 10:03 Encounter Diagnosis: ACUTE BRONCHITIS [facility] Office Medication Order 05-Jul-2018 15:48 To 05-Jul-2018 15:50 Encounter Diagnosis: ASTHMA (Renamed from AIRWAY HYPERREACTIVITY) [facility] Office Visit 08-Jun-2018 10:21 To 08-Jun-2018 13:45 Encounter Reason: ASTHMA, FOLLOW UP - The last clinic visit was 3 month(s) ago. No changes in management were made at [facility] Office he last visit. The patient's [...] By report there is good compliance with [facility], good tolerance of treatment and fair [...] 16:39 Encounter Diagnosis: CARCINOID TUMOR OF LUNG [facility] Historical Summary 16-Feb-2018 11:38 To 16-Feb-2018 11:40 Encounter Reason: ASTHMA, FOLLOW UP - The last clinic visit was 3 month(s) ago. Management changes made at the last [facility] Office it include ordering tests. The [...] Historical Summary 16-Feb-2018 11:09 To 16-Feb-2018 11:09 [facility] Office Visit 16-Feb-2018 10:36 To 16-Feb-2018 12:04 Encounter Reason: ASTHMA, FOLLOW UP - The last clinic visit was 3 month(s) ago. Management changes made at the last vis [facility] it include ordering tests. [...] Historical Summary 04-Feb-2018 14:15 To 04-Feb-2018 14:21 [facility] Office Order Only 17-Nov-2017 15:48 To 17-Nov-2017 15:51 Encounter Diagnosis: ABNORMAL FINDING ON LUNG IMAGING [facility] Office Visit 17-Nov-2017 13:49 To 17-Nov-2017 14:24 Encounter Reason: ASTHMA, FOLLOW UP - The last clinic visit was 9 month(s) ago (and has lost 9# since last seen, had [facility] Office ght knee surgery 2 weeks ago [...] Management changes made at the last vis [facility] it include none (except [...] Historical Summary 13-Nov-2017 10:06 To 13-Nov-2017 10:09 [facility] Order Only 03-May-2017 14:33 To 03-May-2017 14:35 Encounter Diagnosis: ASTHMA (Renamed from AIRWAY HYPERREACTIVITY) [facility] Historical Summary 05-Apr-2017 16:16 To 05-Apr-2017 16:23 Encounter Diagnosis: ASTHMA (Renamed from AIRWAY HYPERREACTIVITY) [facility] Medication Order 02-Apr-2017 11:02 To 02-Apr-2017 11:54 Encounter Diagnosis: ACUTE BRONCHITIS [facility] Office Visit 26-Feb-2017 8:56 To 26-Feb-2017 11:06 Encounter Reason: ASTHMA, FOLLOW UP - The last clinic visit was 3 month(s) ago (primary is Dr. Donte Mckinney). No changes [facility] in management were made [...] To 08-Feb-2017 11:56 Encounter Diagnosis: ABNORMAL SPUTUM [facility] Historical Summary 04-Feb-2017 14:17 To 04-Feb-2017 14:21 Encounter Diagnosis: ASTHMA (Renamed from AIRWAY HYPERREACTIVITY) [facility] Office Order Only 30-Nov-2016 15:44 To 30-Nov-2016 15:45 Encounter Diagnosis: ASTHMA (Renamed from AIRWAY HYPERREACTIVITY) [facility] Office Office Visit 30-Nov-2016 15:01 To 30-Nov-2016 15:48 Encounter Reason: ASTHMA, FOLLOW UP - The last clinic visit was 3 month(s) ago (primary is Dr. Donte Mckinney). No changes [facility] Office in management were made at [...] was 5 month(s) ago (and hospitalized in [place] 08/23-08/27/19 [facility] Office 15 with pneumonia and still not [...] Encounter Diagnosis: ABNORMAL FINDING ON LUNG IMAGING [facility] Office Order Only 03-Jan-2016 8:56 To 03-Jan-2016 10:08 Encounter Diagnosis: ABNORMAL FINDING ON LUNG IMAGING [facility] Office Office Visit 03-Jan-2016 8:04 To 03-Jan-2016 [...] Encounter Diagnosis: ABNORMAL FINDING ON LUNG IMAGING [facility] Office Historical Summary 26-Nov-2015 14:51 To 26-Nov-2015 14:52 Encounter Reason: ASTHMA, FOLLOW UP - The last clinic visit was 3 month(s) ago (primary is Dr. Donte Mckinney). Management [facility] Office changes made at the last visit [...] ago (primary is Dr. Donte Mckinney). Management [facility] Office changes made at the [...] 11:02 Encounter Diagnosis: CARCINOID TUMOR OF LUNG [facility] Office Office Visit 26-Aug-2015 10:19 To 26-Aug-2015 14:58 Encounter Reason: ASTHMA, FOLLOW UP - The last clinic visit was 3 month(s) ago (primary is Dr. Donte Mckinney). Management [facility] Office changes made at the [...] less cavitation. did have ID consult with [facility] emergency department to consider inhaled VJ. she tolerated this [...] ago. Management changes made at the last [facility] Office t include none (and is to [...] is Dr. Donte Mckinney). No changes i [place] [facility] Office n management were made at the [...] Encounter Diagnosis: ASTHMA (Renamed from AIRWAY HYPERREACTIVITY) [facility] Office Order Only 22-Apr-2015 14:19 To 22-Apr-2015 14:23 Encounter Diagnosis: ABNORMAL FINDING ON LUNG IMAGING [facility] Office Historical Summary 19-Apr-2015 13:28 To 19-Apr-2015 13:31 [facility] Office Historical Summary 19-Apr-2015 12:53 To 19-Apr-2015 12:54 Encounter Reason: ASTHMA, FOLLOW UP - The last clinic visit was 6 month(s) ago (primary is Dr. Donte Mckinney, also seeing [facility] Office Dr. Knight). Management changes made at [...] (primary is Dr. Donte Mckinney, also seeing [facility] Office Dr. Knight). Management changes [...] that time and sees Dr. Knight.). 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 The [...] (primary is Dr. Donte Mckinney, also seeing [facility] Office Dr. Knight). Management changes made at [...] Encounter Diagnosis: BACTERIAL INFECTION DUE TO PSEUDOMONAS [facility] Office Office Visit 02-Aug-2014 10:32 To 02-Aug-2014 16:02 Encounter Reason: ASTHMA, FOLLOW UP - The last clinic visit was 3 month(s) ago (primary is Dr. Donte Mckinney, also seeing [facility] Office Dr. Knight). Management changes [...] (primary is Dr. Donte Mckinney, also seeing [facility] Office Dr. Knight). Management changes made at [...] Encounter Diagnosis: ASTHMA (Renamed from AIRWAY HYPERREACTIVITY) [facility] Office Order Only 18-Apr-2014 15:07 To 18-Apr-2014 15:08 Encounter Diagnosis: BACTERIAL INFECTION DUE TO PSEUDOMONAS [facility] Office Medication Order 11-Apr-2014 14:55 To 11-Apr-2014 15:06 Encounter Diagnosis: BACTERIAL INFECTION DUE TO PSEUDOMONAS [facility] Office Office Visit 21-Mar-2014 9:37 To 21-Mar-2014 13:33 Encounter Reason: ASTHMA, FOLLOW UP - The last clinic visit was 3 month(s) ago (primary is Dr. Donte Mckinney, also seeing [facility] Office Dr. Knight). No changes [...] (primary is Dr. Donte Mckinney, also seeing [facility] Office Dr. Knight). No changes in management [...] Encounter Diagnosis: BACTERIAL INFECTION DUE TO PSEUDOMONAS [facility] Office Medication Order 01-Nov-2013 11:27 To 08-Nov-2013 17:51 Encounter Diagnosis: BACTERIAL INFECTION DUE TO PSEUDOMONAS [facility] Order Only 28-Jul-2013 15:54 To 28-Jul-2013 16:10 Encounter Diagnosis: ABNORMAL FINDING ON LUNG IMAGING [facility] Historical Summary 06-Jul-2013 14:42 To 06-Jul-2013 14:44 Encounter Reason: ASTHMA, FOLLOW UP - The last clinic visit was 1 month(s) ago (primary is Dr. Donte Mckinney, also seeing [facility] Dr. Knight). No changes [...] (primary is Dr. Donte Mckinney, also seeing [facility] Dr. Knight). No changes [...] (primary is Dr. Donte Mckinney, also seeing [facility] Office Dr. Knight). No changes [...] (primary is Dr. Donte Mckinney, also seeing [facility] Dr. Knight). No changes [...] (primary is Dr. Donte Mckinney, also seeing [facility] Office Dr. Knight). No changes [...] (primary is Dr. Donte Mckinney, also seeing [facility] Dr. Knight). No changes [...] Encounter Diagnosis: BACTERIAL INFECTION DUE TO PSEUDOMONAS [facility] Office Office Visit 12-May-2013 14:37 To 12-May-2013 15:37 Encounter Reason: ASTHMA, FOLLOW UP - The last clinic visit was 1 month(s) ago (primary is Dr. Donte Mckinney, also seeing [facility] Dr. Knight). No changes [...] (primary is Dr. Donte Mckinney, also seeing [facility] blanca Knight). Management changes made at [...] (primary is Dr. Donte Mckinney, also seeing [facility] Office Dr. Knight). Management changes made at [...] Encounter Diagnosis: ASTHMA (Renamed from AIRWAY HYPERREACTIVITY) [place] [facility] Office Medication Order 10-Mar-2013 12:38 To 10-Mar-2013 13:02 Encounter Diagnosis: BACTERIAL INFECTION DUE TO PSEUDOMONAS [facility] Office Order Only 03-Mar-2013 10:58 To 07-Mar-2013 16:05 Encounter Diagnosis: ABNORMAL FINDING ON LUNG IMAGING [place] [facility] Office Office Visit 02-Mar-2013 15:20 To 02-Mar-2013 16:32 Encounter Reason: ASTHMA, FOLLOW UP - The last clinic visit was 7 month(s) ago (primary is Dr. Donte Mckinney). Management [facility] Office changes made at the last visit [...] advair 500/[address] Antonia bird o has her on bactrim daily for recurrent [...] is Dr. Donte Mckinney). [place] [facility] changes made at the last visit [...] on cpap nightly. home care company is [employer]. gets supplies prn. able to wear cpap [...] (primary is Dr. Donte Mckinney). No changes [facility] Office in management were made at the [...] on cpap nightly. home care company is [employer]. gets supplies prn. ab le to wear cpap all night without any respiratory symptoms. feels more rested with use), allergic rhinitis and gastroesophageal reflux. denies recent hospitalizations. Encounter Diagnosis: PULMONARY NODULE (518.89) , ASTHMA (493.90), PABLITO (OBSTRUCTIVE SLEEP APNEA) (327.23), OBESITY (278.00), AR (ALLERGIC RHINITIS) (477.9), GERD (GASTROESOPHAGEAL REFLUX DISEASE) (530.81) Medication Order 30-Jun-2012 17:24 To 30-Jun-2012 17:26 Encounter Diagnosis: ASTHMA (493.90) [place] [facility] Office Office Visit 04-Feb-2012 14:33 To 04-Feb-2012 15:23 Encounter Reason: Asthma follow up - The last clinic visit was 6 month(s) ago. No changes in management were made at [facility] Office he last visit. Symptoms include [...] includes CPAP therapy (home care company is [employer], mask fits, has humidity. gets mask/supplies prn). [...] ago. Management changes made at the last [facility] Office it include adding symbicort 160/4.5 [...] Historical Summary 03-Aug-2011 19:22 To 03-Aug-2011 19:23 [facility] Office Medication Order 09-Jul-2011 8:23 To 09-Jul-2011 8:26 Encounter Diagnosis: AR (ALLERGIC RHINITIS) ( 477.9) [facility] Office Visit 01-May-2011 10:18 To 01-May-2011 11:38 Encounter Reason: Sleep Follow Up PHP - The sleep disorder is characterized as obstructive sleep apnea. The last clinic [facility] Office visit was 6 month(s) [...] Historical Summary 30-Apr-2011 11:48 To 30-Apr-2011 12:19 [facility] Payers [place] [address] [facility] [id number] [place] Group Number: [id number] tel: JUSTINA of [facility] [address] [address] [place] [address] [place] Group Number: [id number] tel: RICHIE HADDAD [address] [place] [id number] tel:
--- OUTSIDE RECORDS SUMMARY | 2019-07-13 12:34 | XMS REPORT | Continuity of Care Document ---
:1935 External Reference #:[id number] Author Name Donte Mckinney (transmitted by agent of provider Arely Jefferson) Address [address] [place] [address] Problems Active Problems Provider Date Type 2 [...] Acetonide nostril twice 55mcg/Act daily Aerosol Pen [place] 1/2" dx e11.65 as 100units Alex Mckinneyl 06/29/2017 29G X directed 3x a day 12mm Misc injections Diabetic Shoes With as directed hx Donte Mckinney 01/04/2017 Inserts foot surgeries edema feet and ankles. calluses on feet. Accu-Chek Beth Plus dx e11.65 test 4 300units Donte Mckinney 09/15/2016 times daily Strips Accu-Chek Beth Test Fout Times 1units Faye Donte 09/15/2016 Device Daily DX E11.65 Syrings 3/16 [...] Calcium 500 + D Faye Donte 05/05/2016 [id number] Tablets Multivitamin Women Faye Donte 05/05/2016 50+ [...] CPT Code Status Date Vaccine Lot # [id number] Given 03/21/2019 Influenza Virus (Afluria) Split Virus 3 Years Of Age And Older Q2035 Given 03/21/2019 Influenza Virus (Afluria) Split Virus 3 Years [id number] Of Age And Older 36012 Given 03/21/2019 Influenza Virus Vaccine, Quadrivalent, Split, Preservative Free Q2035 Given 04/11/2018 Influenza Virus (Afluria) Split Virus 3 Years [id number] Of Age And Older Q2036 Given 03/23/2017 Flulaval Q2035 Given 03/23/2017 Influenza Virus (Afluria) Split Virus 3 Years Of Age And Older Q2037 Given 04/07/2016 Influenza Vaccine (Fluvirin) 3 Years Of Age Or [id number] Older 75727 Given 05/21/2015 Pneumococcal Conjugate Vaccine 13 Valent For [id number] Intramuscular Use Q2035 Given 03/19/2015 Influenza Virus (Afluria) Split Virus 3 Years [id number] Of Age And Older Q2037 Given 03/13/2014 Influenza Vaccine (Fluvirin) 3 Years Of Age Or Older Q2038 Given 04/04/2013 Influenza Vaccine (Fluzone) Administered Age 3 And Older 33478 Given 04/04/2013 Influenza Vaccine [id number] Q2037 Given 04/26/2012 Influenza Vaccine (Fluvirin) 3 Years Of Age Or [id number] Older Q2036 Given 04/15/2011 Flulaval [id number] 37164 Given 06/30/2010 Zostavax [id number] 13054 Given 04/15/2010 Influenza Vaccine [id number] 98666 Given 12/13/2009 [place]neumovax Polyvalent Inj Im [id number] 85620 Given 04/23/2009 Influenza Vaccine 33028 Given 04/23/2009 Influenza Vaccine [id number] 85256 Given 04/17/2008 Influenza Vaccine 19021 61615 Given 04/12/2007 Influenza Vaccine [id number] 49979 Given 04/16/2006 Influenza Vaccine 18981 Given 04/16/2006 Influenza Vaccine [id number] 33971 Given 05/05/2005 Influenza Vaccine [id number] 01945 Given 05/05/2005 Influenza Vaccine 36323 Given 01/11/2005 Tetanus And Diptheria Toxiods [id number] 55227 Given 12/30/2004 [place] [address] Given 07/19/1991 Tetanus And Diptheria Toxiods Vital Signs Date Vital Result Comment 05/15/2019 11:49am BP Systolic 140 mmHg BP Diastolic 64 mmHg Heart Rate 88 /min Height 58 inches 4'10" O2 % BldC Oximetry 93 % 04/24/2019 10:05am BP Systolic 176 mmHg BP Diastolic 80 mmHg Heart Rate 112 /min Height 58 inches 4'10" O2 % BldC Oximetry 98 % Results Test Date Facility Test Result H/L Range Note CMP W/GFR 04/11/2019 [facility] Sodium 140 mmol/L 135-146 1 [address] [place] [address] [phone] Potassium 3.7 mmol/L 3.5-5.3 Chloride 102 mmol/L 98-110 Carbon Dioxide 28 mmol/L 20-32 2 Calcium 9.8 mg/dL 8.6-10.4 Alkaline Phosphatase 63 U/L 33-130 Ast 14 U/L 10-35 Alt 23 U/L 6-29 Bilirubin,Total 0.5 mg/dL 0.2-1.2 Glucose 157 mg/dL High 65-99 3 Urea Nitrogen (BUN) 69 mg/dL High 7-25 Creatinine 1.89 mg/dL High 0.60-0.88 4 BUN/Creatinine Ratio 36.3 High 6-22 Protein,Total 6.5 g/dL 6.1-8.1 Albumin 3.9 g/dL 3.6-5.1 Globulin,Calculated 2.6 g/dL 1.9-3.7 A/G Ratio 1.5 1.0-2.5 Egfr Non-Afr. Cook Islander 24 ML/MIN/1.73M2 Low > Or = 60 Egfr 28 ML/MIN/1.73M2 Low > Or = 60 Sodium 140 mmol/L 135-146 Potassium 3.7 mmol/L 3.5-5.3 Chloride 102 mmol/L 98-110 Carbon Dioxide 28 mmol/L 20-32 5 Calcium 9.8 mg/dL 8.6-10.4 Alkaline Phosphatase 63 U/L 33-130 Ast 14 U/L 10-35 Alt 23 U/L 6-29 Bilirubin,Total 0.5 mg/dL 0.2-1.2 Glucose 157 mg/dL High 65-99 6 Urea Nitrogen (BUN) 69 mg/dL High 7-25 Creatinine 1.89 mg/dL High 0.60-0.88 7 BUN/Creatinine Ratio 36.3 High 6-22 Protein,Total 6.5 g/dL 6.1-8.1 Albumin 3.9 g/dL 3.6-5.1 Globulin,Calculated 2.6 g/dL 1.9-3.7 A/G Ratio 1.5 1.0-2.5 Egfr Non-Afr. [place] Islander 24 ML/MIN/1.73M2 Low > Or = 60 Egfr 28 ML/MIN/1.73M2 Low > Or = 60 CBC W/ Diff & PLT 04/11/2019 [facility] WBC 11.3 thous/L High 3.8 -10.8 [address] [place] [address] [phone] RBC 4.03 mill/L 3.80-5.10 Hemoglobin 11.6 g/dL Low 11.7-15.5 Hematocrit 35.3 % 35.0-45.0 MCV 87.6 FL 80.0-100.0 MCH 28.8 pg 27.0-33.0 MCHC 32.9 g/dL 32.0-36.0 RDW 14.3 % 11.0-15.0 Platelet Count 406 thous/L High 140-400 MPV 8.7 FL 7.5-12.5 Neutrophils,Absolute 6850 cells/L 9961-4804 Bands,Absolute PENDING Metamyelocytes,Absolute PENDING Myelocytes,Absolute PENDING Promyelocytes,Absolute PENDING Lymphocytes,Absolute 3640 cells/L 850-3900 Monocytes,Absolute 630 cells/L 200-950 Eosinophils,Absolute 60 cells/L 15-500 Basophils,Absolute 60 cells/L 0-200 Blast Cells,Absolute PENDING Nucleated RBC,Absolute PENDING Total Neutrophils,% 61.2 % 40-75 Bands,% PENDING Metamyelocytes,% PENDING Myelocytes,% PENDING Promyelocytes,% PENDING Total Lymphocytes,% 32.2 % 12-47 Reactive Lymphocytes PENDING Monocytes,% 5.6 % 4-12 Eosinophils,% 0.5 % 0-4 Basophils,% 0.5 % 0-1 8 Blasts,% PENDING Nucleated RBC PENDING Comment PENDING WBC 11.3 thous/L High 3.8-10.8 RBC 4.03 mill/L 3.80-5.10 Hemoglobin 11.6 g/dL Low 11.7-15.5 Hematocrit 35.3 % 35.0-45.0 MCV 87.6 FL 80.0-100.0 MCH 28.8 pg 27.0-33.0 MCHC 32.9 g/dL 32.0-36.0 RDW 14.3 % 11.0-15.0 Platelet Count 406 thous/L High 140-400 MPV 8.7 FL 7.5-12.5 Neutrophils,Absolute 6850 cells/L 0164-3414 Lymphocytes,Absolute 3640 cells/L 850-3900 Monocytes,Absolute 630 cells/L 200-950 Eosinophils,Absolute 60 cells/L 15-500 Basophils,Absolute 60 cells/L 0-200 Total Neutrophils,% 61.2 % 40-75 Total Lymphocytes,% 32.2 % 12-47 Monocytes,% 5.6 % 4-12 Eosinophils,% 0.5 % 0-4 Basophils,% 0.5 % 0-1 9 Lipid Panel 04/11/2019 [facility] Cholesterol 173 mg/dL <199 [address] [place] [address] [phone] HDL Cholesterol 56 mg/dL >50 Cholesterol/HDL Ratio 3.1 CALC <5.0 LDL Chol,Calculated 87 mg/dL 0-100 10 Triglycerides 204 mg/dL High <150 11 Non-HDL Cholesterol 116 mg/dL <130 12 Cholesterol 173 mg/dL <199 HDL Cholesterol 56 mg/dL >50 Cholesterol/HDL Ratio 3.1 CALC <5.0 LDL Chol,Calculated 87 mg/dL 0-100 13 Triglycerides 204 mg/dL High <150 14 Non-HDL Cholesterol 116 mg/dL <130 15 Laboratory test finding 04/11/2019 [facility] Cortisol,A.M. PENDING [address] [place] [address] [phone] Vitamin D,25-Hydroxy,Total,Immunoassay 32 NG/ML 30-100 16 Hemoglobin A1c 6.6 % High 0-5.6 17 TSH & T4,Free 04/11/2019 [facility] TSH 0.31 mIU/L Low 0.40-4.50 18 [address] [place] [address] [phone] T4,Free 1.4 ng/dL 0.8-1.8 Laboratory test finding 04/11/2019 [facility] TSH 0.31 mIU/L Low 0.40-4.50 19 [address] [place] [address] [phone] T4,Free 1.4 ng/dL 0.8-1.8 Clinical PDF Report [id number] SEE IMAGE Hemoglobin A1c 6.6 % High 0-5.6 20 TSH 0.31 mIU/L Low 0.40-4.50 21 T4,Free 1.4 ng/dL 0.8-1.8 Vitamin D,25-Hydroxy,Total,Immunoassay 32 NG/ML 30-100 22 Cortisol,A.M. 3.5 g/dL Low 23 1 FASTING 2 Reference range for high altitude clients: 18-30 mmol/L 3 GLUCOSE REFERENCE RANGE BASED ON FASTING SPECIMEN. 4 The upper reference limit for Creatinine is approximately 13% higher for people identified as -Cook Islander. 5 Reference range for high altitude clients: 18-30 mmol/L 6 GLUCOSE REFERENCE RANGE BASED ON FASTING SPECIMEN. 7 The upper reference limit for Creatinine is approximately 13% higher for people identified as -[place] Islander. 8 Relative blood cell counts (%) should be compared with absolute cell counts (cells/mcL). Relative counts may not be clinically meaningful if the absolute count of one or more cell type is decreased. Reference ranges for relative cell counts derived from: A Manual of Laboratory and Diagnostics Tests, 9th Ed, [employer] Vance & Huang, 2015. Pediatric Reference Intervals, 7th Ed, [employer], 2011. 9 Relative blood cell counts (%) should be compared with absolute cell counts (cells/mcL). Relative counts may not be clinically meaningful if the absolute count of one or more cell type is decreased. Reference ranges for relative cell counts derived from: A Manual of Laboratory and Diagnostics Tests, 9th Ed, [employer] Huang, 2015. Pediatric Reference Intervals, 7th Ed, [employer], 2011. 10 LDL-C is now calculated using the Danny-Basim calculation, which is a validated novel method providing better accuracy than the Friedewald equation in the estimation of LDL-C. Danny SS et al.MARIAELENA.2013;310(19):4057-8861 Desirable range <100 mg/dL for primary prevention; <70 mg/dL for patients with CHD or diabetic patients with >or= 2 CHD risk factors. 11 If a non-fasting specimen was collected, consider repeat triglyceride testing on a fasting specimen if clinically indicated. Shakira et al.J of Clin.Lipidol.2015;9:129-169. 12 For patients with diabetes plus 1 major ASCVD risk factor, treating to a non-HDL-C goal of <100 mg/dL (LDL-C of <70 mg/ dL) is considered a therapeutic option. 13 LDL-C is now calculated using the Trae calculation, which is a validated novel method providing better accuracy than the Friedewald equation in the estimation of LDL-C. Danny RASCON et al.MARIAELENA.2013;310(19):4218-4223 Desirable range <100 mg/dL for primary prevention; <70 mg/dL for patients with CHD or diabetic patients with >or= 2 CHD risk factors. 14 If a non-fasting specimen was collected, consider repeat triglyceride testing on a fasting specimen if clinically indicated. Shakira et al.J of Clin.Lipidol.2015;9:129-169. 15 For patients with diabetes plus 1 major ASCVD risk factor, treating to a non-HDL-C goal of <100 mg/dL (LDL-C of <70 mg/ dL) is considered a therapeutic option. 16 Vitamin D Status 25-OH Vitamin D: Deficiency: <20 ng/mL Insufficiency: 20-29 ng/mL Optimal: > or = 30 ng/mL For 25-OH Vitamin D testing on patients on D2-supplementation and patients for whom quantitation of D2 and D3 fractions is required, the [facility] 25-OH Vit D, (D2,D3),LC/MS/MS is recommended: Order code 66543 (patients >2 yrs). 17 For someone without known diabetes, a hemoglobin [...] < 8.0 ACHIEVES LESS STRINGENT GLYCEMIC GOAL 18 REFERENCE RANGES BELOW ARE APPLICABLE TO FEMALES FIRST TRIMESTER - 0.26 - 2.66 mIU/L SECOND TRIMESTER - 0.55 - 2.73 mIU/L THIRD TRIMESTER - 0.43 - 2.91 mIU/L 19 REFERENCE RANGES BELOW ARE APPLICABLE TO FEMALES FIRST TRIMESTER - 0.26 - 2.66 mIU/L SECOND TRIMESTER - 0.55 - 2.73 mIU/L THIRD TRIMESTER - 0.43 - 2.91 mIU/L 20 For someone without known diabetes, a hemoglobin [...] < 8.0 ACHIEVES LESS STRINGENT GLYCEMIC GOAL 21 REFERENCE RANGES BELOW ARE APPLICABLE TO FEMALES FIRST TRIMESTER - 0.26 - 2.66 mIU/L SECOND TRIMESTER - 0.55 - 2.73 mIU/L THIRD TRIMESTER - 0.43 - 2.91 mIU/L 22 Vitamin D Status 25-OH Vitamin D: Deficiency: <20 ng/mL Insufficiency: 20-29 ng/mL Optimal: > or = 30 ng/mL For 25-OH Vitamin D testing on patients on D2-supplementation and patients for whom quantitation of D2 and D3 fractions is required, the [facility] 25-OH Vit D, (D2,D3),LC/MS/MS is recommended: Order code 11787 (patients >2 yrs). 23 REFERENCE RANGE AM: 1-3 DAYS OLD: PREMATURE INFANTS (31-35 WEEKS): < OR = 15.0 MCG/DL TERM INFANTS: < OR = 14.0 MCG/DL 4 DAYS-1 MONTH: NOT ESTABLISHED 1 MONTH-11 MONTHS: 3.0-23.0 MCG/DL 1 YEAR-17 YEARS: 3.0-25.0 MCG/DL 18 YEARS OR OLDER: 4.0-22.0 MCG/DL Procedures Date Code Description Status 04/18/2019 39978 Therapeutic,Prophylactic Intramuscular Inj Completed 04/18/2019 13132 Non-Invcorrotid/Comp /Bilat Study Completed 04/17/2019 28001 Echocardiography Completed 04/11/2019 61105 Spirometry Graphic Record/Max Voluntary Vent Completed 04/11/2019 31822 EKG-Tracing & Report Completed 04/10/2019 38718 EKG-Tracing & Report Completed 04/04/2019 02351 Therapeutic,Prophylactic Intramuscular Inj Completed 03/21/2019 01261 Therapeutic,Prophylactic Intramuscular Inj Completed 02/07/2019 77375 Therapeutic,Prophylactic Intramuscular Inj Completed 01/24/2019 88976 Therapeutic,Prophylactic Intramuscular Inj Completed 01/10/2019 20140 Therapeutic,Prophylactic Intramuscular Inj Completed 12/27/2018 93876 Therapeutic,Prophylactic Intramuscular Inj Completed 12/15/2018 98038 Therapeutic,Prophylactic Intramuscular Inj Completed 11/29/2018 57880 Therapeutic,Prophylactic Intramuscular Inj Completed 03/11/2017 732611407 Bone Mineral Density Test Completed 07/22/2015 [id number] Mammogram Completed 05/13/2007 44660102 Colonoscopy Completed Medical Devices Description No Information Available Encounters Type Date Location Provider Dx Diagnosis Office Visit 05/15/2019 11:30a Main Office Donte [...] deficiency, unspecified Assessments Date Code Description Provider 05/15/2019 J44.1 Chronic obstructive pulmonary disease with (acute) Donte Mckinney exacerbation 05/15/2019 T78.40xD Allergy, unspecified, subsequent encounter Donte Mckinney 05/15/2019 I65.23 Occlusion and stenosis of bilateral carotid arteries Donte Mckinney 05/15/2019 E78.2 Mixed hyperlipidemia Gauss, [facility] 05/15/2019 R06.02 Shortness of breath Gauss, [facility] 05/15/2019 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 Causs, [facility] 05/15/2019 E66.09 Other obesity due to excess calories [facility], [facility] 05/15/2019 I11.9 Hypertensive heart disease without heart failure Gauss, [facility] 04/24/2019 R26.89 Other abnormalities of gait and mobility Gauss, [facility] 04/24/2019 T78.40xD Allergy, unspecified, subsequent encounter Gauss, [facility] 04/24/2019 I65.23 Occlusion and stenosis of bilateral carotid arteries Gauss , [facility] 04/24/2019 I34.0 Nonrheumatic mitral (valve) insufficiency Gauss, [facility] 04/24/2019 E78.2 Mixed hyperlipidemia Garust, [facility] 04/24/2019 R06.02 Shortness of breath [facility], [facility] 04/24/2019 J44.9 Chronic obstructive pulmonary disease, unspecified Garust, [facility] 04/24/2019 J44.1 Chronic obstructive pulmonary disease with (acute) Garust, [facility] exacerbation 04/18/2019 T78.40xD Allergy, unspecified, subsequent encounter [facility] 04/18/2019 I65.23 Occlusion and stenosis of bilateral carotid arteries [facility] , [facility] 04/17/2019 I34.0 Nonrheumatic mitral (valve) insufficiency Garust, [facility] 04/11/2019 E78.2 Mixed hyperlipidemia [facility], [facility] 04/11/2019 R06.02 Shortness of breath [facility], [facility] 04/11/2019 J44.9 Chronic obstructive pulmonary disease, unspecified Gauss, [facility] 04/11/2019 R05 Cough Gauss, [facility] 04/10/2019 E78.2 Mixed hyperlipidemia Garust, [facility] 04/04/2019 T78.40xD Allergy, unspecified, subsequent encounter [facility] 03/21/2019 Z23 Encounter for immunization [facility], [facility] 03/21/2019 T78.40xD Allergy, unspecified, subsequent encounter Garust, [facility] 02/21/2019 E11.65 Type 2 diabetes mellitus with hyperglycemia [facility] 02/14/2019 R42 Dizziness and giddiness Causs, [facility] 02/14/2019 T78.40xD Allergy, unspecified, subsequent encounter Gauss, Donte 02/14/2019 E11.65 Type 2 diabetes mellitus with hyperglycemia Gauss, [facility] 02/14/2019 E03.9 Hypothyroidism, unspecified Gauss, [facility] 02/14/2019 J44.9 Chronic obstructive pulmonary disease, unspecified Gauss, [facility] 02/14/2019 J40 Bronchitis, not specified as acute or chronic Gauss, [facility] 02/14/2019 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 Gauss, [facility] 02/14/2019 E66.09 Other obesity due to excess calories Gauss, [facility] 02/14/2019 I11.9 Hypertensive heart disease without heart failure Gauss, [facility] 02/14/2019 J45.30 Mild persistent asthma, uncomplicated Gauss, [facility] 02/14/2019 M54.5 Low back pain Gauss, [facility] 02/14/2019 J44.0 Chronic obstructive pulmonary disease with acute Gauss, [facility] lower respiratory infection 02/14/2019 I73.9 Peripheral vascular disease, unspecified Gauss, [facility] 02/14/2019 I65.23 Occlusion and stenosis of bilateral carotid arteries Gauss , [facility] 02/14/2019 R26.89 Other abnormalities of gait and mobility Gauss, [facility] 02/07/2019 T78.40xD Allergy, unspecified, subsequent encounter Gauss, [facility] 01/24/2019 T78.40xD Allergy, unspecified, subsequent encounter Gauss, [facility] 01/17/2019 E11.65 Type 2 diabetes mellitus with hyperglycemia Gauss, [facility] 01/17/2019 E03.9 Hypothyroidism, unspecified Gauss, [facility] 01/17/2019 T78.40xD Allergy, unspecified, subsequent encounter Gauss, [facility] 01/17/2019 J44.9 Chronic obstructive pulmonary disease, unspecified Gauss, [facility] 01/17/2019 J40 Bronchitis, not specified as acute or chronic Gauss, [facility] 01/17/2019 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 Gauss, [facility] 01/17/2019 E66.09 Other obesity due to excess calories Gauss, [facility] 01/17/2019 I11.9 Hypertensive heart disease without heart failure Gauss, [facility] 01/10/2019 T78.40xD Allergy, unspecified, subsequent encounter Gauss, [facility] 12/27/2018 T78.40xD Allergy, unspecified, subsequent encounter Faye Donte 12/20/2018 T78.40xD Allergy, unspecified, subsequent encounter Faye Donte 12/20/2018 E11.65 Type 2 diabetes mellitus with hyperglycemia Faye Donte 12/20/2018 E03.9 Hypothyroidism, unspecified Faye Donte 12/20/2018 J44.9 Chronic obstructive pulmonary disease, unspecified Faye Donte 12/20/2018 J40 Bronchitis, not specified as acute or chronic Faye Donte 12/20/2018 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 Faye Donte 12/20/2018 E66.09 Other obesity due to excess calories aFye Donte 12/20/2018 I11.9 Hypertensive heart disease without heart failure Faye Donte 12/20/2018 E78.5 Hyperlipidemia, unspecified Faye Donte 12/20/2018 J44.1 Chronic obstructive pulmonary disease with (acute) Faye Donte exacerbation 12/20/2018 R06.02 Shortness of breath Faye Donte 12/20/2018 I34.0 Nonrheumatic mitral (valve) insufficiency Faye Donte 12/20/2018 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 Faye Donte 12/20/2018 E55.9 Vitamin D deficiency, unspecified Faye Donte 12/15/2018 T78.40xD Allergy, unspecified, subsequent encounter Donte Mckinney 11/29/2018 T78.40xD Allergy, unspecified, subsequent encounter Donte Mckinney Plan of Treatment Future Appointment(s):05/25/2019 11:30 am - Donte Mckinney at Main [id number] 9:00 am - Nurse at Main Laqtdy4105/15/2019 - Donte MckinneyJ44.1 Chronic obstructive pulmonary disease with (acute) exacerbationNew Medication: Amoxicillin/Clavulanate Potassium 500-125 mg - 1 by mouth three times a dayAlbuterol Sulfate 1.25 mg/3ML - as directed up to four times a dayT78.40xD Allergy, unspecified, subsequent yarzxvyafP03.23 Occlusion and stenosis of bilateral carotid arteriesComments:Discussed role of life style choices in dietary fats and exercise plays on evolution of [place] disease and importance of controlling cholesterol. Medications role and side effects in disease progression prevention discussed and need for compliance with prescribed treatment. Follow up testing for progression such as ultrasound surveillance syotsomnR30.2 Mixed xsyovixhmzcxvlI65.02 Shortness of qpnppuX63.5 Adrenomedullary lxcsezudznhstO82.09 Other obesity due to excess caloriesComments :Discussed [...] to Reason for Referral Status Appt Date Marcello Lino M.D. [facility] Closed 02/27/[address] [place] [address] [phone] Servando Disla MD Closed [address] [place] [id number] [phone]
--- OUTSIDE RECORDS SUMMARY | 2019-07-13 12:34 | XMS REPORT | Continuity of Care Document ---
:1935 External Reference #:[id number] Author Name Donte Mckinney (transmitted by agent of provider Arely Jefferson) Address [address] [place] [address] Problems Active Problems Provider Date Type 2 [...] Acetonide nostril twice 55mcg/Act daily Aerosol Pen [place] 1/2" dx e11.65 as 100units Alex Mckinneyl [...] Calcium 500 + D Faye Donte 05/05/2016 955-433tg-Ists Tablets Multivitamin Women Faye Donte 05/05/2016 50+ [...] CPT Code Status Date Vaccine Lot # [id number] Given 05/16/2019 Pneumovax Polyvalent Inj Im Q2035 Given 03/21/2019 Influenza Virus (Quadrivalent)Splitvirus 3 Years Of Age And Older Q2035 Given 03/21/2019 Influenza Virus (Quadrivalent)Splitvirus 3 [id number] Years Of Age And Older 51744 Given 03/21/2019 Influenza Virus Vaccine, Quadrivalent, Split, Preservative Free Q2035 Given 04/11/2018 Influenza Virus (Quadrivalent)Splitvirus 3 [id number] Years Of Age And Older Q2036 Given 03/23/2017 Flulaval Q2035 Given 03/23/2017 Influenza Virus (Quadrivalent)Splitvirus 3 Years Of Age And Older Q2037 Given 04/07/2016 Influenza Vaccine (Fluvirin) 3 Years Of Age Or [id number] Older 676[address] Given 05/21/2015 Pneumococcal Conjugate Vaccine 13 Valent For [id number] Intramuscular Use Q2035 Given 03/19/2015 Influenza Virus (Quadrivalent)Splitvirus 3 [id number] Years Of Age And Older Q2037 Given 03/13/2014 Influenza Vaccine (Fluvirin) 3 Years Of Age Or Older Q2038 Given 04/04/2013 Influenza Vaccine (Fluzone) Administered Age 3 And Older 86309 Given 04/04/2013 Influenza Vaccine [id number] Q2037 Given 04/26/2012 Influenza Vaccine (Fluvirin) 3 Years Of Age Or [id number] Older Q2036 Given 04/15/2011 Flulaval [id number] 48805 Given 06/30/2010 Zostavax [id number] 42998 Given 04/15/2010 Influenza Vaccine [id number] 06637 Given 12/13/2009 Pneumovax Polyvalent Inj Im [id number] 71497 Given 04/23/2009 Influenza Vaccine 81815 Given 04/23/2009 Influenza Vaccine [id number] 27547 Given 04/17/2008 Influenza Vaccine [id number] 45753 Given 04/12/2007 Influenza Vaccine 05951 56520 Given 04/16/2006 Influenza Vaccine 34090 Given 04/16/2006 Influenza Vaccine [id number] 58275 Given 05/05/2005 Influenza Vaccine [id number] 91638 Given 05/05/2005 Influenza Vaccine 05373 Given 01/11/2005 Tetanus And Diptheria Toxiods [id number] 45414 Given 12/30/2004 [place] [address] Given 07/19/1991 Tetanus And Diptheria Toxiods Vital Signs Date Vital Result Comment 05/25/2019 11:25am BP Systolic 182 mmHg BP Diastolic 88 mmHg Heart Rate 100 /min Respiratory Rate 22 /min Weight 183.00 lb O2 % BldC Oximetry 96 % 05/15/2019 11:49am BP Systolic 140 mmHg BP Diastolic 64 mmHg Heart Rate 88 /min Height 58 inches 4'10" O2 % dC Oximetry 93 % Results Test Acquired Date Facility Test Result H/L Range Note General Health 05/15/2019 [facility] TSH 0.30 mIU/L Low 0.40-4.50 1 Panel [facility] [address] [place] [address] [phone] T4, Free 1.4 ng/dL Normal 0.8-1.8 CBC (Includes 05/15/2019 [facility] White 14.9 High 3.8-10.8 Diff/PLT) [address] Blood Cell Thousand/[place] [address] Count [phone] Red Blood Cell Count 3.48 Million/uL Low 3.80-5.10 Hemoglobin 10.3 g/dL Low 11.7-15.5 Hematocrit 30.4 % Low 35.0-45.0 MCV 87.4 fL Normal 80.0-100.0 MCH 29.6 pg Normal 27.0-33.0 MCHC 33.9 g/dL Normal 32.0-36.0 RDW 14.2 % Normal 11.0-15.0 Platelet Count 390 Thousand/uL Normal 140-400 MPV 9.2 fL Normal 7.5-12.5 Absolute Neutrophils 89665 cells/uL High 4350-4016 Absolute Lymphocytes 745 cells/uL Low 850-3900 Absolute Monocytes 313 cells/uL Normal 200-950 Absolute Eosinophils 0 cells/uL Low 15-500 Absolute Basophils 30 cells/uL Normal 0-200 Neutrophils 92.7 % High 38-80 Lymphocytes 5.0 % Low 15-49 Monocytes 2.1 % Normal 0-13 Eosinophils 0.0 % Normal 0-8 Basophils 0.2 % Normal 0-2 Comprehensive Metabolic 05/15/2019 [facility] Glucose 198 mg/dL High 65-139 2 Panel [address] [place], [place] [id number] [phone] Urea Nitrogen (BUN) 72 mg/dL High 7-25 Creatinine 1.83 mg/dL High 0.60-0.88 3 eGFR Non-Afr. [place] 25 mL/min/1.73m2 Low > Or = 60 [...] U/L High 6-29 Laboratory test 05/15/2019 [facility] Cortisone, Serum 0.8 g/dL 4 finding [address] [place] [address] [phone] Enhanced PDF Report [id number] SEE IMAGE CMP W/GFR 04/11/2019 [facility] Sodium 140 mmol/L 135-146 5 [address] [place], [place] [id number] [phone] Potassium 3.7 mmol/L 3.5-5.3 Chloride 102 mmol/L [...] 1.9-3.7 A/G Ratio 1.5 1.0-2.5 Egfr Non-Afr. [place] 24 ML/MIN/1.73M2 Low > Or = 60 [...] 1.9-3.7 A/G Ratio 1.5 1.0-2.5 Egfr Non-Afr. [place] 24 ML/MIN/1.73M2 Low > Or = 60 Egfr 28 ML/MIN/1.73M2 Low > Or = 60 CBC W/ Diff & PLT 04/11/2019 [facility] WBC 11.3 thous/L High 3.8 -10.8 [address] [place] [address] [phone] RBC 4.03 mill/L 3.80-5.10 Hemoglobin 11.6 g/dL Low 11.7-15.5 Hematocrit 35.3 % 35.0-45.0 MCV 87.6 FL 80.0-100.0 MCH 28.8 pg 27.0-33.0 MCHC 32.9 g/dL 32.0-36.0 RDW 14.3 % 11.0-15.0 Platelet Count 406 thous/L High 140-400 MPV 8.7 FL 7.5-12.5 Neutrophils,Absolute 6850 cells/L 4291-6464 Bands,Absolute PENDING Metamyelocytes,Absolute PENDING Myelocytes,Absolute PENDING Promyelocytes,Absolute [...] MPV 8.7 FL 7.5-12.5 Neutrophils,Absolute 6850 cells/L 1183-0168 Lymphocytes,Absolute 3640 cells/L 850-3900 Monocytes,Absolute 630 cells/L 200-950 Eosinophils,Absolute 60 cells/L 15-500 Basophils,Absolute 60 cells/L 0-200 Total Neutrophils,% 61.2 % 40-75 Total Lymphocytes,% 32.2 % 12-47 Monocytes,% 5.6 % 4-12 Eosinophils,% 0.5 % 0-4 Basophils,% 0.5 % 0-1 13 Lipid Panel 04/11/2019 [facility] Cholesterol 173 mg/dL <199 [address] [place] [address] [phone] HDL Cholesterol 56 mg/dL >50 Cholesterol/HDL Ratio [...] <130 19 Laboratory test finding 04/11/2019 [facility] Cortisol,A.M. PENDING [address] [facility] [address] [address] [place], [place] [id number] [phone] Vitamin D,25-Hydroxy,Total,Immunoassay 32 NG/ML 30-100 20 Hemoglobin A1c 6.6 % High 0-5.6 21 TSH & T4,Free 04/11/2019 [facility] TSH 0.31 mIU/L Low 0.40-4.50 22 [address] [place], [place] [id number] [phone] T4,Free 1.4 ng/dL 0.8-1.8 Laboratory test finding 04/11/2019 [facility] TSH 0.31 mIU/L Low 0.40-4.50 23 [address] [place] [address] [phone] T4,Free 1.4 ng/dL 0.8-1.8 Clinical PDF Report [id number] SEE IMAGE Hemoglobin A1c 6.6 % High [...] approximately 13% higher for people identified as -Emirati. 4 Reference Range: AM: 1.2-3.5 PM: 0.6-2.8 This test was developed and its analytical performance characteristics have been determined by [facility]. It has not been cleared or approved by FDA. This assay has been validated pursuant to the CLIA regulations and is used for clinical purposes. 5 FASTING 6 Reference range for high altitude clients: 18-30 mmol/L 7 GLUCOSE REFERENCE RANGE BASED ON FASTING SPECIMEN. 8 The upper reference limit for Creatinine is approximately 13% higher for people identified as -Emirati. 9 Reference range for high altitude clients: 18-30 mmol/L 10 GLUCOSE REFERENCE RANGE BASED ON FASTING SPECIMEN. 11 The upper reference limit for Creatinine is approximately 13% higher for people identified as -Emirati. 12 Relative blood cell counts (%) should [...] the estimation of LDL-C. Danny SS et al.MARIAELENA.2013;310(19):8068-5753 Desirable range <100 mg/dL for primary prevention; [...] the estimation of LDL-C. Danny SS et al.MARIAELENA.2013;310(19):9053-5065 Desirable range <100 mg/dL for primary prevention; [...] Vit D, (D2,D3),LC/MS/MS is recommended: Order code 65151 (patients >2 yrs). 21 For someone without [...] Vit D, (D2,D3),LC/MS/MS is recommended: Order code 52974 (patients >2 yrs). 27 REFERENCE RANGE AM: 1-3 DAYS OLD: PREMATURE INFANTS (31-35 WEEKS): < OR = 15.0 MCG/DL TERM INFANTS: < OR = 14.0 MCG/DL 4 DAYS-1 MONTH: NOT ESTABLISHED 1 MONTH-11 MONTHS: 3.0-23.0 MCG/DL 1 YEAR-17 YEARS: 3.0-25.0 MCG/DL 18 YEARS OR OLDER: 4.0-22.0 MCG/DL Procedures Date Code Description Status 04/18/2019 93441 Therapeutic,Prophylactic Intramuscular Inj Completed 04/18/2019 61244 Non-Invcorrotid/Comp /Bilat Study Completed 04/17/2019 86633 Echocardiography Completed 04/11/2019 56995 Spirometry Graphic Record/Max Voluntary Vent Completed 04/11/2019 17941 EKG-Tracing & Report Completed 04/10/2019 79796 EKG-Tracing & Report Completed 04/04/2019 60177 Therapeutic,Prophylactic Intramuscular Inj Completed 03/21/2019 68174 Therapeutic,Prophylactic Intramuscular Inj Completed 02/07/2019 33270 Therapeutic,Prophylactic Intramuscular Inj Completed 01/24/2019 19611 Therapeutic,Prophylactic Intramuscular Inj Completed 01/10/2019 82103 Therapeutic,Prophylactic Intramuscular Inj Completed 12/27/2018 99475 Therapeutic,Prophylactic Intramuscular Inj Completed 12/15/2018 61482 Therapeutic,Prophylactic Intramuscular Inj Completed 11/29/2018 43664 Therapeutic,Prophylactic Intramuscular Inj Completed 03/11/2017 [id number] Bone Mineral Density Test Completed 07/22/2015 [id number] Mammogram Completed 05/13/2007 [id number] Colonoscopy Completed Medical Devices Description No Information [...] 05/25/2019 T78.40xD Allergy, unspecified, subsequent encounter [facility], [facility] 05/25/2019 E78.5 Hyperlipidemia, unspecified [facility], [facility] 05/25/2019 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 [facility], [facility] 05/25/2019 E66.09 Other obesity due [facility] excess calories [facility] 05/25/2019 I11.9 Hypertensive heart disease without heart failure [facility], [facility] 05/25/2019 E11.65 Type 2 diabetes mellitus with hyperglycemia [facility], [facility] 05/25/2019 E03.9 Hypothyroidism, unspecified [facility], [facility] 05/25/2019 J40 Bronchitis, not specified as acute or chronic [facility], [facility] 05/25/2019 J45.30 Mild persistent asthma, uncomplicated [facility] 05/16/2019 T78.40xD Allergy, unspecified, subsequent encounter [facility] 05/15/2019 J44.1 Chronic obstructive pulmonary disease with (acute) [facility], [facility] exacerbation 05/15/2019 T78.40xD Allergy, unspecified, subsequent encounter [facility], [facility] 05/15/2019 I65.23 Occlusion and stenosis of bilateral carotid arteries [facility] , [facility] 05/15/2019 E78.2 Mixed hyperlipidemia [facility], [facility] 05/15/2019 R06.02 Shortness of breath [facility] 05/15/2019 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 [facility], [facility] 05/15/2019 E66.09 Other obesity due to excess calories [facility] 05/15/2019 I11.9 Hypertensive heart disease without heart failure [facility], [facility] 04/24/2019 R26.89 Other abnormalities of gait and mobility [facility], [facility] 04/24/2019 T78.40xD Allergy, unspecified, subsequent encounter [facility], [facility] 04/24/2019 I65.23 Occlusion and stenosis of bilateral carotid arteries [facility] , [facility] 04/24/2019 I34.0 Nonrheumatic mitral (valve) insufficiency [facility], [facility] 04/24/2019 E78.2 Mixed hyperlipidemia [facility], [facility] 04/24/2019 R06.02 Shortness of breath [facility], [facility] 04/24/2019 J44.9 Chronic obstructive pulmonary disease, unspecified [facility], [facility] 04/24/2019 J44.1 Chronic obstructive pulmonary disease with (acute) Gauss, Don[facility] exacerbation 04/18/2019 T78.40xD Allergy, unspecified, subsequent encounter Gataylor, Donte 04/18/2019 I65.23 Occlusion and stenosis of bilateral carotid arteries [facility] , [facility] 04/17/2019 I34.0 Nonrheumatic mitral (valve) insufficiency Gauss, Donte 04/11/2019 E78.2 Mixed hyperlipidemia [facility], [facility] 04/11/2019 R06.02 Shortness of breath [facility], [facility] 04/11/2019 J44.9 Chronic obstructive pulmonary disease, unspecified [facility], [facility] 04/11/2019 R05 Cough [facility], [facility] 04/10/2019 E78.2 Mixed hyperlipidemia [facility], [facility] 04/04/2019 T78.40xD Allergy, unspecified, subsequent encounter [facility], [facility] 03/21/2019 Z23 Encounter for immunization [facility] 03/21/2019 T78.40xD Allergy, unspecified, subsequent encounter [facility], [facility] 02/21/2019 E11.65 Type 2 diabetes mellitus with hyperglycemia [facility] 02/14/2019 R42 Dizziness and giddiness [facility] 02/14/2019 T78.40xD Allergy, unspecified, [facility] 02/14/2019 E11.65 Type 2 diabetes mellitus with hyperglycemia [facility] 02/14/2019 E03.9 Hypothyroidism, unspecified [facility], [facility] 02/14/2019 J44.9 Chronic obstructive pulmonary disease, unspecified [facility], [facility] 02/14/2019 J40 Bronchitis, not specified as acute or chronic [facility], [facility] 02/14/2019 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 [facility] 02/14/2019 E66.09 Other obesity due to excess calories [facility] 02/14/2019 I11.9 Hypertensive heart disease without heart failure [facility], [facility] 02/14/2019 J45.30 Mild persistent asthma, uncomplicated [facility], [facility] 02/14/2019 M54.5 Low back pain [facility] 02/14/2019 J44.0 Chronic obstructive pulmonary disease with acute [facility] lower respiratory infection 02/14/2019 I73.9 Peripheral [...] Faye Donte 12/20/2018 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 Alex Mckinneyl 12/20/2018 E55.9 Vitamin D deficiency, unspecified Pr[facility]aylor[facility]l 12/15/2018 T78.40xD Allergy, unspecified, subsequent encounter Donte Mckinney 11/29/2018 T78.40xD Allergy, unspecified, subsequent encounter Donte Mckinney Plan of Treatment Future Appointment(s):06/19/2019 10:30 am - Donte Mckinney at [facility] [id number] 8:30 am - Nurse at Main Nlysvs3105/25/2019 - Alex MckinneylR06.02 Shortness of breathComments:DESPITE NUMEROUS ANTIBIOTICS AND BRONCHODILATORF/U DR HUDSONReferral:Denver Hudson MD, Pulmonary AirmixmeZ02.1 Chronic obstructive pulmonary disease with (acute) hlqtidjbwmmuF06.23 Occlusion and stenosis of bilateral carotid arteriesComments:Discussed role of life style choices in dietary fats and exercise plays on evolution of douglas disease and importance of controlling cholesterol. Medications role and side effects in disease progression prevention discussed and need for compliance with prescribed treatment. Follow up testing for progression such as ultrasound surveillance xdirvikzF99.40xD Allergy, unspecified, subsequent jzhwhvjdpC09.5 Hyperlipidemia , unspecifiedComments:Counselled on role of diet and excersize and importance to keep compliance with medication if prescribed and side effects. The importance of routine monitoring of blood lipids and liver tests to managetreatment and avoid side effects were discussed. Usual follow up is 3 months for LFT and Lipid profile. Patient education including dietary guidelines and materials provided.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Comments: SUSPECT RASReferral:No Doctor TdehighlO72.09 Other obesity due to excess caloriesComments:Discussed health [...] checks and laboratory tests related to medication reviewed.Referral:Servando Disla MD, MrwatlpboxJ91.65 Type 2 diabetes mellitus with hyperglycemiaComments:Continue with medication as directed. Continue with reduced carb diet. To continue with fingerstick monitoring Q Day Continue to follow reduced carbohydrate low fat diet. Exercise regularly. Needs annual blood sugar evaluation. Emphasized weight control to manage blood sugar mcc.E03.9 Hypothyroidism, pywpjgztwswJ93 Bronchitis, not specified as acute or npejxttM02.30 Mild persistent asthma, uncomplicated Functional Status Description No Information Available Mental Status Description No Information Available Referrals Refer to Dr Reason for Referral Status Appt Date Created Servando Disla MD Created [address] [place], [place] [id number] [phone] Denver Hudson MD Created [address] [place] [address] [phone] Marcello Lino M.D. [facility] Closed 02/27/[address] [place] [address] [phone] Servando Disla MD Closed [address] [place], [place] [address] [phone]
--- OUTSIDE RECORDS SUMMARY | 2019-07-13 12:34 | XMS REPORT | Continuity of Care Document ---
:1935 External Reference #:[id number] Author Name Donte Mckinney (transmitted by agent of provider Yvette Cruz) Address [address] [place] [address] Problems Active Problems Provider Date Type 2 [...] Acetonide nostril twice 55mcg/Act daily Aerosol Pen [place] 1/2" dx e11.65 as 100units Alex Mckinneyl [...] Mckinneyl 05/05/2016 Potency day 1000Unit Capsules Meliza-Sequels Alex Mckinneyl 05/05/2016 65-25mg Tablets ER Calcium 500 + D Faye Donte 05/05/2016 893-084hn-Prvx Tablets Multivitamin Women Faye Donte 05/05/2016 50+ 50+ Tablets Clonidine HCL 1 by mouth three 270tabs Aelx Mckinneyl 10/09/2015 0.2mg times a day Tablets Levemir Flextouch taking 13 units in 3Mo Alex Mckinneyl 05/14/2015 the am and 16 100Unit/ML Solution units in the pm Pen-Inject Vasotec 1 by mouth twice a 180tabs Donte Mckinney 04/09/2015 20mg Tablets day Knee High Support as directed dx 1units Donte Mckinney 03/19/2015 Hose 250.00 459.81 20-30 compression Walker with wheels and unDonte Gage 02/14/2013 seat dx 781.2 Tylenol 8 Hour as needed 100tabs M15.0 Donte Mckinney 10/11/2012 650mg Tablets ER Fish Oil bid Donte Mckinney 11/25/2010 1200mg Capsules Lipitor 1/2 PO qd 90tabs Donte Mckinney 06/01/2005 20mg Tablets Singulair 1 by mouth every 90tabs Donte Mckinney 06/01/2005 10mg Tablets day Dulera 1 puff twice a day 3un Donte Mckinney 200-5mcg/Act Aerosol Azithromycin 1 tab [...] CPT Code Status Date Vaccine Lot # [id number] Given 05/16/2019 Pneumovax Polyvalent Inj Im Q2035 Given 03/21/2019 Influenza Virus (Quadrivalent)Splitvirus 3 Years Of Age And Older Q2035 Given 03/21/2019 Influenza Virus (Quadrivalent)Splitvirus 3 [id number] Years Of Age And Older 64730 Given 03/21/2019 Influenza Virus Vaccine, Quadrivalent, Split, Preservative Free Q2035 Given 04/11/2018 Influenza Virus (Quadrivalent)Splitvirus 3 [id number] Years Of Age And Older Q2036 Given 03/23/2017 Flulaval Q2035 Given 03/23/2017 Influenza Virus (Quadrivalent)Splitvirus 3 Years Of Age And Older Q2037 Given 04/07/2016 Influenza Vaccine (Fluvirin) 3 Years Of Age Or [id number] Older 13689 Given 05/21/2015 Pneumococcal Conjugate Vaccine 13 Valent For [id number] Intramuscular Use Q2035 Given 03/19/2015 Influenza Virus (Quadrivalent)Splitvirus 3 [id number] Years Of Age And Older Q2037 Given 03/13/2014 Influenza Vaccine (Fluvirin) 3 Years Of Age Or Older Q2038 Given 04/04/2013 Influenza Vaccine (Fluzone) Administered Age 3 And Older 24536 Given 04/04/2013 Influenza Vaccine [id number] Q2037 Given 04/26/2012 Influenza Vaccine (Fluvirin) 3 Years Of Age Or [id number] Older Q2036 Given 04/15/2011 Flulaval [id number] 82568 Given 06/30/2010 Zostavax [id number] 72007 Given 04/15/2010 Influenza Vaccine [id number] 41020 Given 12/13/2009 Pneumovax Polyvalent Inj Im [id number] 20690 Given 04/23/2009 Influenza Vaccine 76059 Given 04/23/2009 Influenza Vaccine [id number] 25756 Given 04/17/2008 Influenza Vaccine 40221 37744 Given 04/12/2007 Influenza Vaccine 76920 59349 Given 04/16/2006 Influenza Vaccine 47104 Given 04/16/2006 Influenza Vaccine 45178 77981 Given 05/05/2005 Influenza Vaccine [id number] 90869 Given 05/05/2005 Influenza Vaccine 22930 Given 01/11/2005 Tetanus And Diptheria Toxiods [id number] 74072 Given 12/30/2004 [place] [address] Given 07/19/1991 Tetanus And Diptheria Toxiods Vital [...] H/L Range Note General Health 05/15/2019 [facility] TSH 0.30 mIU/L Low 0.40-4.50 1 Panel [facility] [address] [place], [place] [id number] [phone] T4, Free 1.4 ng/dL Normal 0.8-1.8 CBC (Includes 05/15/2019 [facility] White 14.9 High 3.8-10.8 Diff/PLT) [address] Blood Cell Thousand/[place] [address] Count [phone] Red Blood Cell Count 3.48 Million/uL Low 3.80-5.10 Hemoglobin 10.3 g/dL Low 11.7-15.5 Hematocrit 30.4 % Low 35.0-45.0 MCV 87.4 fL Normal 80.0-100.0 MCH 29.6 pg Normal 27.0-33.0 MCHC 33.9 g/dL Normal 32.0-36.0 RDW 14.2 % Normal 11.0-15.0 Platelet Count 390 Thousand/uL Normal 140-400 MPV 9.2 fL Normal 7.5-12.5 Absolute Neutrophils 18643 cells/uL High 5168-3292 Absolute Lymphocytes 745 cells/uL Low 850-3900 Absolute Monocytes 313 cells/uL Normal 200-950 Absolute Eosinophils 0 cells/uL Low 15-500 Absolute Basophils 30 cells/uL Normal 0-200 Neutrophils 92.7 % High 38-80 Lymphocytes 5.0 % Low 15-49 Monocytes 2.1 % Normal 0-13 Eosinophils 0.0 % Normal 0-8 Basophils 0.2 % Normal 0-2 Comprehensive Metabolic 05/15/2019 [facility] Glucose 198 mg/dL High 65-139 2 Panel [address] [place] [address] [phone] Urea Nitrogen (BUN) 72 mg/dL High 7-25 Creatinine 1.83 mg/dL High 0.60-0.88 3 eGFR Non-Afr. Guyanese 25 mL/min/1.73m2 Low > Or = 60 [...] U/L High 6-29 Laboratory test 05/15/2019 [facility] Cortisone, Serum 0.8 g/dL 4 finding [address] [place] [address] [phone] Enhanced PDF Report [id number] SEE IMAGE CMP W/GFR 04/11/2019 [facility] Sodium 140 mmol/L 135-146 5 [address] [place], [place] [id number] [phone] Potassium 3.7 mmol/L 3.5-5.3 Chloride 102 mmol/L [...] 1.9-3.7 A/G Ratio 1.5 1.0-2.5 Egfr Non-Afr. Guyanese 24 ML/MIN/1.73M2 Low > Or = 60 [...] 1.9-3.7 A/G Ratio 1.5 1.0-2.5 Egfr Non-Afr. Guyanese 24 ML/MIN/1.73M2 Low > Or = 60 Egfr 28 ML/MIN/1.73M2 Low > Or = 60 CBC W/ Diff & PLT 04/11/2019 [facility] WBC 11.3 thous/L High 3.8 -10.8 [address] [place], [place] [id number] [phone] RBC 4.03 mill/L 3.80-5.10 Hemoglobin 11.6 g/dL Low 11.7-15.5 Hematocrit 35.3 % 35.0-45.0 MCV 87.6 FL 80.0-100.0 MCH 28.8 pg 27.0-33.0 MCHC 32.9 g/dL 32.0-36.0 RDW 14.3 % 11.0-15.0 Platelet Count 406 thous/L High 140-400 MPV 8.7 FL 7.5-12.5 Neutrophils,Absolute 6850 cells/L 5689-6608 Bands,Absolute PENDING Metamyelocytes,Absolute PENDING Myelocytes,Absolute PENDING Promyelocytes,Absolute [...] MPV 8.7 FL 7.5-12.5 Neutrophils,Absolute 6850 cells/L 8204-4295 Lymphocytes,Absolute 3640 cells/L 850-3900 Monocytes,Absolute 630 cells/L 200-950 Eosinophils,Absolute 60 cells/L 15-500 Basophils,Absolute 60 cells/L 0-200 Total Neutrophils,% 61.2 % 40-75 Total Lymphocytes,% 32.2 % 12-47 Monocytes,% 5.6 % 4-12 Eosinophils,% 0.5 % 0-4 Basophils,% 0.5 % 0-1 13 Lipid Panel 04/11/2019 [facility] Cholesterol 173 mg/dL <199 [address] [place] [address] [phone] HDL Cholesterol 56 mg/dL >50 Cholesterol/HDL Ratio [...] <130 19 Laboratory test finding 04/11/2019 [facility] Cortisol,A.M. PENDING [address] [place], [place] [address] [phone] Vitamin D,25-Hydroxy,Total,Immunoassay 32 NG/ML 30-100 20 Hemoglobin A1c 6.6 % High 0-5.6 21 TSH & T4,Free 04/11/2019 [facility] TSH 0.31 mIU/L Low 0.40-4.50 22 [address] [facility] [address] [place], [place] [id number] [phone] T4,Free 1.4 ng/dL 0.8-1.8 Laboratory test finding 04/11/2019 [facility] TSH 0.31 mIU/L Low 0.40-4.50 23 [address] [place] [address] [phone] T4,Free 1.4 ng/dL 0.8-1.8 Clinical PDF Report [id number] SEE IMAGE Hemoglobin A1c 6.6 % High [...] approximately 13% higher for people identified as -Guyanese. 4 Reference Range: AM: 1.2-3.5 PM: 0.6-2.8 This test was developed and its analytical performance characteristics have been determined by [facility]. It has not been cleared or approved by FDA. This assay has been validated pursuant to the CLIA regulations and is used for clinical purposes. 5 FASTING 6 Reference range for high altitude clients: 18-30 mmol/L 7 GLUCOSE REFERENCE RANGE BASED ON FASTING SPECIMEN. 8 The upper reference limit for Creatinine is approximately 13% higher for people identified as -Guyanese. 9 Reference range for high altitude clients: 18-30 mmol/L 10 GLUCOSE REFERENCE RANGE BASED ON FASTING SPECIMEN. 11 The upper reference limit for Creatinine is approximately 13% higher for people identified as -Guyanese. 12 Relative blood cell counts (%) should [...] the estimation of LDL-C. Danny SS et al.MARIAELENA.2013;310(19):5849-2805 Desirable range <100 mg/dL for primary prevention; [...] the estimation of LDL-C. Danny SS et al.MARIAELENA.2013;310(19):1147-9950 Desirable range <100 mg/dL for primary prevention; [...] Vit D, (D2,D3),LC/MS/MS is recommended: Order code 11158 (patients >2 yrs). 21 For someone without [...] Vit D, (D2,D3),LC/MS/MS is recommended: Order code 59041 (patients >2 yrs). 27 REFERENCE RANGE AM: 1-3 DAYS OLD: PREMATURE INFANTS (31-35 WEEKS): < OR = 15.0 MCG/DL TERM INFANTS: < OR = 14.0 MCG/DL 4 DAYS-1 MONTH: NOT ESTABLISHED 1 MONTH-11 MONTHS: 3.0-23.0 MCG/DL 1 YEAR-17 YEARS: 3.0-25.0 MCG/DL 18 YEARS OR OLDER: 4.0-22.0 MCG/DL Procedures Date Code Description Status 04/18/2019 38988 Therapeutic,Prophylactic Intramuscular Inj Completed 04/18/2019 21190 Non-Invcorrotid/Comp /Bilat Study Completed 04/17/2019 22245 Echocardiography Completed 04/11/2019 14999 Spirometry Graphic Record/Max Voluntary Vent Completed 04/11/2019 38971 EKG-Tracing & Report Completed 04/10/2019 00047 EKG-Tracing & Report Completed 04/04/2019 19841 Therapeutic,Prophylactic Intramuscular Inj Completed 03/21/2019 30702 Therapeutic,Prophylactic Intramuscular Inj Completed 02/07/2019 44357 Therapeutic,Prophylactic Intramuscular Inj Completed 01/24/2019 69670 Therapeutic,Prophylactic Intramuscular Inj Completed 01/10/2019 29032 Therapeutic,Prophylactic Intramuscular Inj Completed 12/27/2018 76805 Therapeutic,Prophylactic Intramuscular Inj Completed 12/15/2018 81710 Therapeutic,Prophylactic Intramuscular Inj Completed 11/29/2018 95982 Therapeutic,Prophylactic Intramuscular Inj Completed 03/11/2017 827572703 Bone Mineral Density Test Completed 07/22/2015 92678469 Mammogram Completed 05/13/2007 56431246 Colonoscopy Completed Medical Devices Description No Information [...] mobility Office Visit 01/17/2019 11:00a Main Office Faye Donte E11.65 Type 2 diabetes mellitus with hyperglycemia E03.9 Hypothyroidism, unspecified T78.40xD Allergy, unspecified, subsequent encounter J44.9 Chronic obstructive pulmonary disease, unspecified J40 Bronchitis, not specified as acute or chronic 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 Other obesity due to excess calories I11.9 Hypertensive heart disease without heart failure Office Visit 12/20/2018 10:45a Main Office Faye Donte T78.40xD Allergy, unspecified, subsequent encounter E11.65 Type [...] deficiency, unspecified Assessments Date Code Description Provider 05/16/2019 T78.40xD Allergy, unspecified, subsequent encounter Donte Mckinney 05/15/2019 J44.1 Chronic obstructive pulmonary disease with (acute) Donte Mckinney exacerbation 05/15/2019 T78.40xD Allergy, unspecified, subsequent encounter Donte Mckinney 05/15/2019 I65.23 Occlusion and stenosis of bilateral carotid arteries Donte Mckinney 05/15/2019 E78.2 Mixed hyperlipidemia Donte Mckinney 05/15/2019 R06.02 Shortness of breath Donte Mckinney 05/15/2019 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 Donte Mckinney 05/15/2019 E66.09 Other obesity due to excess calories Donte Mckinney 05/15/2019 I11.9 Hypertensive heart disease without heart failure Donte Mckinney 04/24/2019 R26.89 Other abnormalities of gait and mobility Alex Mckinneyl 04/24/2019 T78.40xD Allergy, unspecified, subsequent encounter [facility], [facility] 04/24/2019 I65.23 Occlusion and stenosis of bilateral carotid arteries [facility] , [facility] 04/24/2019 I34.0 Nonrheumatic mitral (valve) insufficiency [facility], [facility] 04/24/2019 E78.2 Mixed hyperlipidemia [facility], [facility] 04/24/2019 R06.02 Shortness of breath [facility], [facility] 04/24/2019 J44.9 Chronic obstructive pulmonary disease, unspecified [facility], [facility] 04/24/2019 J44.1 Chronic obstructive pulmonary disease with (acute) [facility], [facility] exacerbation 04/18/2019 T78.40xD Allergy, unspecified, subsequent encounter [facility], [facility] 04/18/2019 I65.23 Occlusion and stenosis of bilateral carotid arteries Gauss , [facility] 04/17/2019 I34.0 Nonrheumatic mitral (valve) insufficiency [facility], [facility] 04/11/2019 E78.2 Mixed hyperlipidemia [facility], [facility] 04/11/2019 R06.02 Shortness of breath [facility], [facility] 04/11/2019 J44.9 Chronic obstructive pulmonary disease, unspecified [facility], [facility] 04/11/2019 R05 Cough [facility], [facility] 04/10/2019 E78.2 Mixed hyperlipidemia [facility], [facility] 04/04/2019 T78.40xD Allergy, unspecified, subsequent encounter [facility], [facility] 03/21/2019 Z23 Encounter for immunization [facility], [facility] 03/21/2019 T78.40xD Allergy, unspecified, subsequent encounter [facility], [facility] 02/21/2019 E11.65 Type 2 diabetes mellitus with hyperglycemia [facility], [facility] 02/14/2019 R42 Dizziness and giddiness [facility], [facility] 02/14/2019 T78.40xD Allergy, unspecified, subsequent encounter [facility], [facility] 02/14/2019 E11.65 Type 2 diabetes mellitus with hyperglycemia [facility], [facility] 02/14/2019 E03.9 Hypothyroidism, unspecified [facility], [facility] 02/14/2019 J44.9 Chronic obstructive pulmonary disease, unspecified [facility], [facility] 02/14/2019 J40 Bronchitis, not specified as acute or chronic [facility], [facility] 02/14/2019 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 Gauss, Donte 02/14/2019 E66.09 Other obesity due to excess calories Gauss, Donte 02/14/2019 I11.9 Hypertensive heart disease without heart failure Gauss, Donte 02/14/2019 J45.30 Mild persistent asthma, uncomplicated Gauss, Donte 02/14/2019 M54.5 Low back pain Gauss, Donte 02/14/2019 J44.0 Chronic obstructive pulmonary disease with acute Gauss, Donte lower respiratory infection 02/14/2019 I73.9 Peripheral vascular disease, unspecified Gauss, Donte 02/14/2019 I65.23 Occlusion and stenosis of bilateral carotid arteries Gauss , Donte 02/14/2019 R26.89 Other abnormalities of gait and mobility Gauss, Donte 02/07/2019 T78.40xD Allergy, unspecified, subsequent encounter Gauss, Donte 01/24/2019 T78.40xD Allergy, unspecified, subsequent encounter [facility], [facility] 01/17/2019 E11.65 Type 2 diabetes mellitus with hyperglycemia [facility], [facility] 01/17/2019 E03.9 Hypothyroidism, unspecified [facility], [facility] 01/17/2019 T78.40xD Allergy, unspecified, subsequent encounter [facility], [facility] 01/17/2019 J44.9 Chronic obstructive pulmonary disease, unspecified [facility], [facility] 01/17/2019 J40 Bronchitis, not specified as acute or chronic Gauss, Donte 01/17/2019 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 [facility], [facility] 01/17/2019 E66.09 Other obesity due to excess calories Gauss, Donte 01/17/2019 I11.9 Hypertensive heart disease without heart failure Gauss, Donte 01/10/2019 T78.40xD Allergy, unspecified, subsequent encounter Gauss, Donte 12/27/2018 T78.40xD Allergy, unspecified, subsequent encounter [facility], [facility] 12/20/2018 T78.40xD Allergy, unspecified, subsequent encounter Gauss, Donte 12/20/2018 E11.65 Type 2 diabetes mellitus with hyperglycemia Gauss, Donte 12/20/2018 E03.9 Hypothyroidism, unspecified [facility], [facility] 12/20/2018 J44.9 Chronic obstructive pulmonary disease, unspecified Gataylor, Donte 12/20/2018 J40 Bronchitis, not specified as acute or chronic Gataylor, Donte 12/20/2018 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 Faye, Donte 12/20/2018 E66.09 Other obesity due to excess calories Faye, Donte 12/20/2018 I11.9 Hypertensive heart disease without heart failure Faye, Donte 12/20/2018 E78.5 Hyperlipidemia, unspecified Gataylor, Donte 12/20/2018 J44.1 Chronic obstructive pulmonary disease with (acute) Gataylor, Donte exacerbation 12/20/2018 R06.02 Shortness of breath Faye, Donte 12/20/2018 I34.0 Nonrheumatic mitral (valve) insufficiency Faye, Donte 12/20/2018 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 [facility] Closed 02/27/[address] [place], [place] [address] [phone] Servando Disla MD Closed [address] [place] [id number] [phone]
[2019-07-13 12:50] VITALS: BP 113/86
--- NOTE | 2019-07-13 12:59 | UC ---
Upper Extremity HPI - HPI Summary HPI Summary: 83-year-old female presents with complaints of left arm pain and swelling. States approximately 1-1/2 weeks ago she started developing some pain and mild swelling in the left wrist and hand that has progressively worsened and now involves most of her left upper extremity. Reports she initially thought she may have slept on the hand wrong. Describes pain as a constant aching. No alleviating or aggravating factors. Denies injury, fever, chest pain, shortness of breath, chills, erythema, numbness, or tingling. - History of Current Complaint Chief Complaint: UCUpperExtremity Stated Complaint: LEFT HAND PAIN/SWELLING Time Seen by Provider: 07/13/19 12:36 Hx Obtained From: Patient Pain Intensity: 3 - Allergies/Home Medications Allergies/Adverse Reactions: Allergies Allergy/AdvReac Type Severity Reaction Status Date / Time cetirizine [From Zyrtec] Allergy Swelling Verified 07/13/19 12:33 Of Face,Lips,& Throat levofloxacin [From Levaquin] Allergy Unknown Verified 07/13/19 12:33 Reaction Details Sulfa (Sulfonamide Allergy See Comment Verified 07/13/19 12:33 Antibiotics) tapentadol [From Nucynta] Allergy Unknown Verified 07/13/19 12:33 Reaction Details terfenadine [From Seldane] Allergy Unknown Verified 07/13/19 12:33 Reaction Details Home Medications: Home Medications Amlodipine Besylate [Norvasc] 10 mg PO DAILY 07/13/19 [History Confirmed ] Insulin Lispro [Humalog] 10 units SUBCUT AC 07/13/19 [History Confirmed 07/13/19 ] Torsemide 100 mg PO DAILY 07/13/19 [History Confirmed 07/13/19] PMH/Surg Hx/FS Hx/Imm Hx - Additional Past Medical History Additional PMH: Anemia, adrenal insufficiency Endocrine History: Diabetes, Dyslipidemia Cardiovascular History: Hypertension Respiratory History: COPD GI/ History: Renal Disease - renal insufficiency - Surgical History Surgical History: Yes Surgery Procedure, Year, and Place: back surgery, T&A. cataract. arthro knee. lumpectomy. carpal tunnel. tonsil/adenoids. gall bladder. lung biopsy. hammer toe and bone spur - Family History Known Family History: Positive: Other, Non-Contributory - Social History Occupation: Retired Lives: With Family Alcohol Use: None Substance Use Type: None Smoking Status (MU): Never Smoked Tobacco Review of Systems All Other Systems Reviewed And Are Negative: Yes Constitutional: Negative: Fever, Chills Skin: Negative: Rash Respiratory: Negative: Shortness Of Breath Cardiovascular: Negative: Chest Pain Gastrointestinal: Positive: Negative Genitourinary: Positive: Negative Motor: Negative: Weakness Neurovascular: Negative: Decreased Sensation Musculoskeletal: Positive: Edema - See HPI. Negative: Decreased ROM Neurological: Positive: Negative Is Patient Immunocompromised?: No Physical Exam - Summary Physical Exam Summary: GENERAL APPEARANCE: Alert and cooperative older adult female who appears to be in no acute distress. CARDIAC: Normal S1 and S2. No S3, S4 or murmurs. Rhythm is regular. There is no peripheral edema, cyanosis or pallor. Extremities are warm and well perfused. Capillary refill is less than 2 seconds. Peripheral pulses intact. LUNGS: Clear to auscultation without rales, rhonchi, wheezing or diminished breath sounds. ABDOMEN: Positive bowel sounds. Soft, nondistended, nontender. No guarding or rebound. No masses or hepatosplenomegally. MUSKULOSKELETAL: Normal muscular development. Normal gait. EXTREMITIES: Left arm edematous from mid upper arm to hand including fingers. Non-pitting. No erythema, lesions, or increased warmth. 2+ pulse. Sensation intact. ROM intact. SKIN: Skin normal color, texture and turgor with no lesions or eruptions. Triage Information Reviewed: Yes Vital Signs: Initial Vital Signs Temp 97.2 F 07/13/19 12:45 Pulse 95 07/13/19 12:45 Resp 24 07/13/19 12:45 BP 113/86 07/13/19 12:45 Pulse Ox 99 07/13/19 12:45 Vital Signs Reviewed: Yes Upper Extremity Course/Dx - Course Course Of Treatment: 83-year-old female presents with complaints of left arm pain and swelling. States approximately 1-1/2 weeks ago she started developing some pain and mild swelling in the left wrist and hand that has progressively worsened and now involves most of her left upper extremity. Reports she initially thought she may have slept on the hand wrong. Describes pain as a constant aching. No alleviating or aggravating factors. Denies injury, fever, chest pain, shortness of breath, chills, erythema, numbness, or tingling. Afebrile. Vital signs stable. On exam left arm was edematous from mid upper arm to hand including fingers, non-pitting withouth erythema, lesions, or increased warmth. 2+ pulse. Sensation intact. ROM intact. Discussed with the patient that I was concerned for the possibility of a DVT and is recommended that she be further evaluated in the emergency room at this time. Patient is agreeable to this and is electing to go via private vehicle with family member driving her. - Differential Dx/Diagnosis Differential Diagnosis/HQI/PQRI: Other - DVT, cellulitis Provider Diagnosis: Pain and swelling of left upper extremity Discharge ED - Sign-Out/Discharge Documenting (check all that apply): Patient Departure All imaging exams completed and their final reports reviewed: No Studies - Discharge Plan Condition: Stable Disposition: HOME-RECOMMEND TO ED Referrals: Donte Mckinney MD [Primary Care Provider] - Additional Instructions: With your history of progressively worsening pain and swelling of the left upper extremity I am concerned that your symptoms could be suggestive of a blood clot in the veins of the arm and am recommending that you be evaluated in the emergency room at this time. Please go directly to the emergency room from here. - Billing Disposition and Condition Condition: STABLE Disposition: Home-Recommend to ED - Attestation Statements Provider Attestation: Per institutional requirements, I have reviewed the chart, however, I was not consulted specifically or made aware of this patient by the midlevel provider. I did not personally evaluate, interact with , or disposition this patient.
== END 2019-07-13 13:19 | disposition home health service (06) ==
LOC: UCCORT 10:57
DX: M79.642 Pain in left hand (principal); R22.32 Localized swelling, mass and lump, left upper limb; E11.9 Type 2 diabetes mellitus without complications; I10 Essential (primary) hypertension; J44.9 Chronic obstructive pulmonary disease, unspecified; Z88.1 Allergy status to other antibiotic agents; Z88.2 Allergy status to sulfonamides; Z88.5 Allergy status to narcotic agent; Z88.8 Allergy status to other drugs, medicaments and biological substances; Z79.4 Long term (current) use of insulin; Z79.899 Other long term (current) drug therapy
CPT/HCPCS: 99212; G0463